=== PATIENT | female | born 1965 | race Caucasian/White ===

== ENCOUNTER → 2017-09-27 12:47 | Outpatient (CLI) | payer MEDICAID, SELFPAY ==
--- NOTE | 2017-09-27 14:02 | NEURO ---
NCS and/or EMG Patient Report Ordering Doctor: Bret You Chi DATE OF SERVICE: 09/27/17 Gisel Bhatti is a 52-year-old female presents for electrodiagnostic testing of the left upper limb. She has chief complaint of numbness and tingling in the arm as well as neck pain. Electrodiagnostic findings: Left median motor nerve demonstrates normal distal latency, amplitude with borderline reduced conduction velocity. Left ulnar motor response is within normal limits. Prolonged left median sensory distal latency is noted. Normal left median and ulnar f wave. Needle EMG testing shows no evidence of denervation in any muscles tested in the left upper limb and left cervical paraspinals. Electrodiagnostic impression: This is an abnormal study in the left upper limb. 1. Electrodiagnostic findings demonstrate left-sided median mononeuropathy. This is consistent with a mild left carpal tunnel syndrome. 2. No EMG evidence is noted for cervical radiculopathy. If there are any further questions, please do not hesitate to contact me.
== END ==
PROVIDERS: Family Provider Family Medicine Geriatric Medicine; PCP Family Medicine Geriatric Medicine; Visit Provider Family Medicine Geriatric Medicine
DX: R20.0 Anesthesia of skin (principal); R20.2 Paresthesia of skin
CPT/HCPCS: 95886; 95909

== ENCOUNTER → 2017-10-24 08:26 | Outpatient (CLI) | payer MEDICAID, SELFPAY ==
--- NOTE | 2017-10-24 08:27 | RAD_ITS ---
STUDY: X-RAY - LEFT WRIST REASON FOR EXAM: Increased left wrist pain for one year. TECHNIQUE: 3 view(s) of the wrist were obtained. COMPARISON: None. FINDINGS: Normal visualized distal radius and ulna. Normal radiocarpal articulation. Normal distal radioulnar articulation. Normal carpal bones. Normal carpal articulations. Normal carpometacarpal articulation of the thumb. Normal second through fifth carpometacarpal articulations. Normal visualized metacarpal bones. The soft tissue structures are unremarkable. RAD/Wrist min 3 Views IMPRESSION: Unremarkable x-ray examination of the left wrist. Electronically Signed: Javier Carrillo MD at 11:58 EST Tel , Service support ,
== END ==
PROVIDERS: Family Provider Family Medicine Geriatric Medicine; PCP Family Medicine Geriatric Medicine; Visit Provider Orthopaedic Surgery
DX: M25.532 Pain in left wrist (principal)
CPT/HCPCS: 73110

== ENCOUNTER → 2017-11-06 07:47 | Outpatient (CLI) | payer MEDICAID, SELFPAY ==
--- NOTE | 2017-11-06 10:17 | PFT ---
INTRODUCTION: The patient is a 52-year-old female currently under the care of Dr. Jones that presents for pulmonary function testing secondary to a diagnosis of COPD. Respiratory therapy reports good patient effort reports no other concerns. Bronchodilators were used during testing. INTERPRETATION: Forced expiration spirometry demonstrates the presence of a mild large airways obstructive ventilatory defect. There was a significant response to aerosolized bronchodilators, based upon changes noted in FEV1. Spirogram is of good quality and do not plateau indicating slanting of the lungs. The respiratory flow volume loop reveals decreased expiratory flow rates, primarily at high lung volumes, consistent with small airways obstruction. Body plethysmography was performed and reveals an elevated RV to 124% of predicted, indicative of underlying air trapping. Diffusing capacity by single breath CO was moderately reduced at 56% of predicted. IMPRESSION: These pulmonary function studies demonstrate the presence of a reversible mild large airways obstructive ventilatory defect with associated air trapping and reduction in diffusing capacity.
== END ==
PROVIDERS: Family Provider Family Medicine Geriatric Medicine; PCP Family Medicine Geriatric Medicine; Visit Provider Internal Medicine Critical Care Medicine
DX: J44.9 Chronic obstructive pulmonary disease, unspecified (principal)
CPT/HCPCS: 94060; 94726; 94729

== ENCOUNTER → 2017-11-15 11:21 | Outpatient (CLI) | payer MEDICAID, SELFPAY ==
[2017-11-15 13:08] LABS: Absolute Lymphocyte Count 1.84 X10^3/ul (0.83-4.51); Absolute Neutrophil Count 3.7 X10^3/uL (2.0-7.7); Basophil# 0.02 X10^3/uL; Basophil% 0.3 % (0-1); Eosinophil# 0.15 X10^3/uL; Eosinophils% 2.4 % (0-5); Hematocrit 34.4 % (37-47); Hemoglobin 11.4 g/dl (12.0-15.0); Lymphocyte # 1.84 X10^3/ul (4.0); Lymphocyte % 29.7 % (19-41); Mean Corp Hgb Conc 33.1 g/gl (32-36); Mean Corpuscular Hgb 32.8 pg (27.0-32.0); Mean Corpuscular Volume 98.9 fL (81-99); Mean Platelet Vol. 8.5 fl (6.2-12.0); Monocyte# 0.47 X10^3/uL; Monocyte% 7.6 % (0-10); Neutrophil # 3.71 X10^3/uL (2.7-7.7); Neutrophil % 59.8 % (47-70); Platelet Count 355 K/mm3 (150-450); RBC Distribution Width CV 13.6 % (11.6-14.6); RBC Distribution Width SD 48.9 fl (35.1-43.9); Red Blood Count 3.48 M/mm3 (4.2-5.4); White Blood Count 6.2 K/mm3 (4.4-11.0)
[2017-11-15 13:11] LABS: POSITIVE COUNT NO; POSITIVE DIFFERENTIAL NO; POSITIVE MORPHOLOGY NO
[2017-11-15 13:31] LABS: ALB/GLOB Ratio 1.2 RATIO (0.9-2.4); AST(SGOT) 16 U/L (15-37); Alanine Aminotransfer ALT/SGPT 28 U/L (13-56); Albumin, Serum 3.8 g/dL (3.2-5.0); Alkaline Phosphatase 67 U/L (45-117); Anion Gap 6 (5-15); BUN 10 mg/dL (7-18); BUN/Creat Ratio 12.2 RATIO (10-20); Calcium,Total 9.1 mg/dL (8.5-10.1); Chloride 105 mmol/L (98-107); Creatinine, Serum 0.82 mg/dL (0.55-1.02); EST Glomerular Filtration Rate 78 mL/min (>60); Est Glom Filt Rate - Afr Amer 94 mL/min (>60); Globulin 3.3 g/dL (2.2-4.2); Glucose 95 mg/dL (74-106); Potassium 4.9 mmol/L (3.5-5.1); Protein, Total 7.1 g/dL (6.4-8.2); Sodium Level 136 mmol/L (136-145); Thyroid Stim Hormone (TSH) 1.97 uIU/mL (0.358-3.74)
== END ==
PROVIDERS: Family Provider Family Medicine Geriatric Medicine; PCP Family Medicine Geriatric Medicine; Visit Provider Family Medicine Geriatric Medicine
DX: E11.9 Type 2 diabetes mellitus without complications (principal); I10 Essential (primary) hypertension
CPT/HCPCS: 36415; 80053; 84443; 85025

== ENCOUNTER → 2017-12-06 08:30 | Outpatient (CLI) | payer MEDICAID, SELFPAY ==
--- NOTE | 2017-12-06 08:31 | BI_ITS ---
MAMMOGRAPHY - BILATERAL SCREENING REASON FOR EXAM: Female, 52 years old. Routine annual screening examination. PERTINENT HISTORY: Aunt with breast cancer. TECHNIQUE: Digital bilateral breast yajaira (3D mammographic acquisition) in the CC and MLO projections. 2-D mediolateral oblique (MLO) and craniocaudad (CC) views of both breasts were obtained. CAD: Full Field Digital Mammography with Computer Added Detection was performed. COMPARISON: No comparison mammograms available at this time. If any prior films become available, an addendum to this report can be generated. FINDINGS: Breast Composition: The breasts are heterogeneously dense, which may obscure small masses. A cluster microcalcification is seen in the axillary region of the left breast as seen on the MLO view. These are not well seen on the craniocaudad view. The patient will be recalled for additional views including magnification spot views and exaggerated craniocaudad view of the left breast. No other significant abnormalities are identified. BI/SCREENING MAMM (CAD), BILAT IMPRESSION: Cluster microcalcification in the left breast as described. The patient will be recalled for additional views including magnification spot views in the MLO position as well as an exaggerated left craniocaudad view. Recall Side: Left Breast ASSESSMENT CATEGORY: BIRADS Category 0: Incomplete. Need additional imaging evaluation. A letter regarding these results will be sent to the patient by the facility within 30 days. Approximately 10% of breast cancers are not detected by mammography. A normal mammogram should not delay biopsy of a clinically suspicious abnormality. [id number] Electronically Signed: Agus Ruelas MD at 8:35 EDT Tel [phone], Service support ,
== END ==
PROVIDERS: Family Provider Family Medicine Geriatric Medicine; PCP Family Medicine Geriatric Medicine; Visit Provider Family Medicine Geriatric Medicine
DX: Z12.31 Encounter for screening mammogram for malignant neoplasm of breast (principal)
CPT/HCPCS: 77063; 77067

== ENCOUNTER → 2017-12-13 07:42 | Outpatient (CLI) | payer MEDICAID, SELFPAY ==
--- NOTE | 2017-12-13 07:43 | BI_ITS ---
MAMMOGRAPHY - UNILATERAL DIAGNOSTIC: LEFT BREAST REASON FOR EXAM: Female, 52 years old. Abnormal screening mammogram. PERTINENT HISTORY: Aunt with breast cancer. TECHNIQUE: Compression spot views with magnification of the left breast were obtained. CAD: Full Field Digital Mammography with Computer Added Detection was performed. COMPARISON: Comparison is made with prior study dated December 06, 2017 and prior ocular examination dated November 23, 2016. FINDINGS: Breast Composition: The breasts are heterogeneously dense, which may obscure small masses. The cluster microcalcification in the deep upper central portion of the left breast have increased in number as compared to prior study. A biopsy is recommended for further evaluation. No other significant abnormalities are identified. BI/DIAG MAMM W/CAD, UNILAT IMPRESSION: Increased number of calcifications in the breast as described. A biopsy recommended. ASSESSMENT CATEGORY: BIRADS Category 4: Suspicious - Biopsy Should Be Considered. A letter regarding these results will be sent to the patient by the facility within 30 days. Approximately 10% of breast cancers are not detected by mammography. A normal mammogram should not delay biopsy of a clinically suspicious abnormality. Electronically Signed: Agus Ruelas MD at 9:12 EDT Tel [phone], Service support ,
== END ==
PROVIDERS: Family Provider Family Medicine Geriatric Medicine; PCP Family Medicine Geriatric Medicine; Visit Provider Family Medicine Geriatric Medicine
DX: R92.8 Other abnormal and inconclusive findings on diagnostic imaging of breast (principal)
CPT/HCPCS: 77065

== ENCOUNTER → 2017-12-22 11:59 | Outpatient (CLI) | payer MEDICAID, SELFPAY ==
--- NOTE | 2017-12-22 | BRBX_PTH ---
PATIENT: FLORINDA LOPEZ LOC: [facility] U#:[id number] AGE/SX: 60/F ROOM: RE12/22/[address]: Dr. Ashish Kumar MD : 1965 BED: DIS: SPEC #: [id number] RECD: 12/22/17 15:14 STATUS: EILEEN JIMBO #: [id number] SHARON: 12/22/17 00:[address]: Ashish Kumar DEPT: SURGICAL PATHOLOGY RECD BY: Mukund Sewell ENTERED: 12/22/17 15:14 SP TYPE: BREAST BX OTHR DR: Dr. Bret You MD Tissues: Left breast, NOS Procedures: Surgery Specimen Level IV HEADER OPERATION: Left stereotactic breast biopsy PRE-OP DIAGNOSIS: Left breast microcalcifications TISSUE SUBMITTED: Left deep upper central breast microcalcification ISCHEMIC TIME: 2 minutes FIXATION TIME: 53 hours MICROSCOPIC DIAGNOSIS Left deep upper central breast microcalcifications, stereotactic core biopsy: Hyalinized fibroadenoma with focal calcifications. Lobular involution. Negative for atypia or malignancy. KRISTY:tin 12/25/17 COMMENT Focal microcalcifications are also noted in the benign breast tissue. Correlation with clinical, radiologic findings and appropriate follow up are necessary. MICROSCOPIC DESCRIPTION Slides are reviewed. GROSS DESCRIPTION Received is one container labeled with the patient's name and not further designated. The specimen consists of multiple irregular fragments of yellow-pink soft tissue that in aggregate measure 6.5 x 3 x 0.2 cm. The specimen is totally submitted in three cassettes. / AM:tin 12/22/17 TC:1 CPT: 07476
--- NOTE | 2017-12-22 13:21 | OP.PCM_ITS ---
Problem List (1) Microcalcification of left breast on mammogram Status: Acute Report of Operation Date of Procedure: 12/22/17 Pre-Operative Diagnosis: r92.0 mammographic microcalcifications of left breast Post-Operative Diagnosis: Same Surgery/Procedure Performed:: 16988 stereotactic breast biopsy of left breast for microcalcifications Type of Anesthesia:: Local Description of Procedure: Patient was brought into the mammography unit placed in the prone position on the fissure table. Left breast was brought down through the opening. A cc view was obtained. ?15? views were obtained. I targeted on the microcalcifications. I prepped the breast with Betadine. I injected 1% lidocaine plain. A skin haley was made. I placed the needle in the prefire position. 2 more stereo views were obtained showing the area to be adequately targeted. I fired the needle and took 360? circumferential biopsies. I x- rayed my specimen. Microcalcifications were identified. Backed the needle off 9 mm. I placed a small Gelfoam titanium clip. 2 more stereo views were obtained. Clip was in good placement. Patient was taken out sterile dressings were applied standard mammograms were obtained. She tolerated the procedure well. On my way - Admit VTE Documentation VTE Present on Admission: No VTE Mechan Device Prophylaxis: None VTE Pharm Prophylaxis ordered?: No Reason prophylaxis not ordered:: Treatment Not Indicated
== END ==
PROVIDERS: Family Provider Family Medicine Geriatric Medicine; PCP Family Medicine Geriatric Medicine; Visit Provider Surgery
DX: D24.2 Benign neoplasm of left breast (principal); N60.82 Other benign mammary dysplasias of left breast; E03.9 Hypothyroidism, unspecified; F32.9 Major depressive disorder, single episode, unspecified; E11.9 Type 2 diabetes mellitus without complications; E78.5 Hyperlipidemia, unspecified; J44.9 Chronic obstructive pulmonary disease, unspecified; Z79.51 Long term (current) use of inhaled steroids; Z79.84 Long term (current) use of oral hypoglycemic drugs; Z79.899 Other long term (current) drug therapy; Z87.891 Personal history of nicotine dependence
CPT/HCPCS: 19081; 88305; J7050; A4648

== ENCOUNTER 2018-01-24 11:37 | Day surgery (SDC) | payer MEDICAID, SELFPAY ==
[2018-01-24] VITALS (7 sets, daily range): BP systolic 82–97; BP diastolic 51–64; PULSE 87–94; RESP 16–20; TEMP 36.1–36.7; O2SAT 96–98; BMI 24.3
[2018-01-24 12:20] LABS: Bedside Glucose 98 mg/dL (70-110)
--- NOTE | 2018-01-24 12:22 | DCINST_ITS ---
Discharge Diet: No Restrictions - leave dressing intact, call with concerns, follow up in 2 weeks Discharge Activity: May Not Drive May shower in (days): 1 Ice area for (Minutes): 20 - Every hour while awake. Weight Bearing Status: Weight bearing as tolerated Keep extremity elevated above heart level: Operative Extremity Call your doctor if your incision/area has: Continuous Slow Oozing, Sudden Increased Bleeding, Increased Pain/ Swelling, Increased Redness, Foul Smelling Discharge Call your doctor if you observe: Fever of 101 or Higher, Coldness, Increased Pain, Numbness or Tingling, Change in Color, Calf discomfort Allergies/Adverse Reactions: Allergies prochlorperazine edisylate [From Compazine] Allergy (Verified 01/23/18 10:15) Rash prochlorperazine maleate [From Compazine] Allergy (Verified 01/23/18 10:15) Rash Medications to take at Discharge Atorvastatin Calcium [Lipitor] 40 mg PO QHS 08/11/14 [place]-3 Fatty Acids [Fish Oil] 1,000 mg PO DAILY 08/11/14 Sertraline HCl [Zoloft] 100 mg PO DAILY 08/11/14 traZODone [Desyrel] 100 mg PO QHS 08/11/14 levothyroxine 25 mcg capsule 25 mcg PO DAILY 10/24/17 lisinopril 5 mg tablet 5 mg PO QDAY 10/24/17 naproxen 500 mg tablet 500 mg PO Q12H PRN 10/24/17 albuterol sulfate concentrate 2.5 mg/0.5 mL solution for nebulization 2.5 mg INHALATION Q4H PRN 12/14/17 albuterol sulfate HFA 90 mcg/actuation aerosol inhaler 2 puff INHALATION Q6H PRN #18 g 12/20/17 cyclobenzaprine 10 mg tablet 10 mg PO TID 12/21/17 metformin 500 mg tablet 1,000 mg PO BID 12/21/17 Hydrocodone Bitart/Apap 5-325 [Branch 5MG-325MG] 1 - 2 tablet PO Q6H PRN PRN 3 Days #20 tablet 01/24/18 The following prescriptions were given: Hydrocodone Bitart/Apap 5-325 [Branch 5MG-325MG] 1 - 2 tablet PO Q6H PRN PRN 3 Days #20 tablet PRN Reason: Pain Primary Care Physician: Bret You Chi, MD [Primary Care Provider] - Please Follow Up With: Julee Greene, DO - [phone]
--- NOTE | 2018-01-24 12:22 | PCM.OPRPT ---
Report of Operation Date of Procedure: 01/24/18 Pre-Operative Diagnosis: left carpal tunnel syndrome Post-Operative Diagnosis: same Surgery/Procedure Performed:: left carpal tunnel release Type of Anesthesia:: Merritt Hurtado Anesthesiologist: Kuldip Herrera Estimated Blood Loss (mL): none Fluids Replaced: 500ml lr Description of Procedure: Preoperative note Patient is a { 52 y female } patient with nerve conduction study confirming carpal tunnel syndrome. Patient failed conservative treatment for her carpal tunnel elected proceed with left carpal tunnel release. Risks benefits and alternatives surgery discussed with patient. Risks including but not limited to blood loss, blood clot, infection, neurovascular injury, failure procedure, loss of life and loss of limb. Patient is aware like proceed with left carpal tunnel release. Operative note Patient seen and examined preoperative holding area. Left hand was marked. History and physical and consent reviewed. Patient was brought to the operating room placed supine on the operating table. Sign in, anesthesia, antibiotics were administered. Left upper extremity was prepped and draped after Merritt block was initiated. All bony prominences well-padded SCDs placed on bilateral lower extremities. We marked out our incisions for our carpal tunnel release at the intersection of Christen's line in the fourth ray flexed. We extended about a centimeter and a half. Timeout was performed. We then checked ensure that the [place] block was working with pickups which it was. We then used a 15 blade to make a skin incision. We then dissected down tenotomy syllable of the transverse carpal ligament. We then used a new 15 blade cut through the transverse carpal ligament down to the level of the median nerve. We then further released the median nerve the combination of the 15 blade and tenotomies. The nerve was grayish in color and adherent to the transverse carpal ligament volarly. We released the transverse carpal ligament distally to the fat pad and then proximally under standard technique. We then palpated to ensure that we released all of the transverse carpal ligament which we did. We irrigated the incision with copious amounts of sterile saline. All bleeders were coagulated. The incision was closed with interrupted 4-0 nylon stitches. Tourniquet was deflated for total working time of 10 minutes. Patient tolerated procedure well there were no complications. Patient transferred to recovery room in stable condition. Postoperative note Hospital pharmacy has prescription Leave dressing clean dry and intact Follow-up in 2 weeks Call with concerns This note was generated with [employer] software. It may contain incorrect words, spelling, and punctuation that were not noted in checking the note before signing.
[2018-01-24] MEDS: Mupirocin Ointment 22gm Tube 1 APPLIC (12:34)
[2018-01-24] MEDS: Cefazolin 2 GM in 0.9% Normal Saline 100 ML IV (12:44)
[2018-01-24] MEDS: HYDROcodone Bitartrate/Apap 5/325 Tablet PO (14:03)
== END 2018-01-24 14:20 | disposition home or self-care (01) ==
LOC: SDC 11:37 → AC 11:39
PROVIDERS: Family Provider Family Medicine Geriatric Medicine; PCP Family Medicine Geriatric Medicine; Visit Provider Orthopaedic Surgery
PROC: (CPT 64721; principal; 2018-01-24 12:55)
DX: G56.02 Carpal tunnel syndrome, left upper limb (principal); I10 Essential (primary) hypertension; J44.9 Chronic obstructive pulmonary disease, unspecified; E11.9 Type 2 diabetes mellitus without complications; F32.9 Major depressive disorder, single episode, unspecified; E03.9 Hypothyroidism, unspecified; Z87.891 Personal history of nicotine dependence
CPT/HCPCS: 01810; 64721; 82962; J7120; J2405

== ENCOUNTER → 2018-02-14 10:04 | Outpatient (CLI) | payer MEDICAID, SELFPAY ==
[2018-02-14 12:51] LABS: Absolute Lymphocyte Count 1.97 X10^3/ul (0.83-4.51); Absolute Neutrophil Count 2.8 X10^3/uL (2.0-7.7); Basophil# 0.04 X10^3/uL; Basophil% 0.7 % (0-1); Eosinophil# 0.24 X10^3/uL; Eosinophils% 4.3 % (0-5); Hematocrit 32.5 % (37-47); Lymphocyte # 1.97 X10^3/ul (4.0); Lymphocyte % 35.2 % (19-41); Mean Corp Hgb Conc 33.8 g/gl (32-36); Mean Corpuscular Hgb 33.8 pg (27.0-32.0); Mean Platelet Vol. 8.5 fl (6.2-12.0); Monocyte# 0.49 X10^3/uL; Monocyte% 8.8 % (0-10); Neutrophil # 2.83 X10^3/uL (2.7-7.7); Neutrophil % 50.6 % (47-70); POSITIVE COUNT NO; POSITIVE DIFFERENTIAL NO; POSITIVE MORPHOLOGY NO; Platelet Count 334 K/mm3 (150-450); RBC Distribution Width CV 12.9 % (11.6-14.6); RBC Distribution Width SD 45.8 fl (35.1-43.9); Red Blood Count 3.25 M/mm3 (4.2-5.4); White Blood Count 5.6 K/mm3 (4.4-11.0)
[2018-02-14 13:11] LABS: ALB/GLOB Ratio 1.2 RATIO (0.9-2.4); AST(SGOT) 14 U/L (15-37); Alanine Aminotransfer ALT/SGPT 26 U/L (13-56); Albumin, Serum 3.8 g/dL (3.2-5.0); Alkaline Phosphatase 71 U/L (45-117); Anion Gap 9 (5-15); BUN 13 mg/dL (7-18); Calcium,Total 8.9 mg/dL (8.5-10.1); Chloride 102 mmol/L (98-107); Creatinine, Serum 0.86 mg/dL (0.55-1.02); EST Glomerular Filtration Rate 73 mL/min (>60); Est Glom Filt Rate - Afr Amer 88 mL/min (>60); Globulin 3.2 g/dL (2.2-4.2); Glucose 93 mg/dL (74-106); Potassium 4.5 mmol/L (3.5-5.1); Sodium Level 135 mmol/L (136-145); Thyroid Stim Hormone (TSH) 2.25 uIU/mL (0.358-3.74)
== END ==
PROVIDERS: Family Provider Family Medicine Geriatric Medicine; PCP Family Medicine Geriatric Medicine; Visit Provider Family Medicine Geriatric Medicine
DX: I10 Essential (primary) hypertension (principal); E11.9 Type 2 diabetes mellitus without complications
CPT/HCPCS: 36415; 80053; 84443; 85025

== ENCOUNTER 2018-03-11 11:35 | Emergency (ER) | payer MEDICAID, SELFPAY ==
[2018-03-11 11:37] VITALS: BP 130/67; PULSE 100; RESP 14; TEMP 37.2; O2SAT 98; BMI 24.2
--- NOTE | 2018-03-11 11:58 | ED.DCSUM_ITS ---
- ER Visit Summary Date of Service: 03/11/18 Chief Complaint: Left wrist pain and numbness left little finger History of Present Illness: The patient is a 52 F right hand dominant woman who presents with left wrist pain that she localizes to the volar surface and numbness of her left little finger. This has been present since January. She had carpal tunnel surgery performed several weeks ago. She reports postop infection because she was placing mulch. She was treated with antibiotics. She states she contacted the surgeon. She is not able to be seen until next month. She has taken 2 ibuprofen every 6 hours with some improvement. Movement does cause the pain to be worse. She has no other complaints. Physical Examination: Vital signs are noted. There is a contusion volar surface left wrist. There is pain to palpation over the flexor palmaris tendon. Movement causes discomfort and there is a gritty sensation appreciated. Incision is well-healed without erythema, warmth, fluctuance, lymphangitis and there is no epitrochlear extra lymphadenopathy. Median, radial and ulnar function intact. Positive Tinel's sign with palpation near the medial epicondyle to suggest ulnar nerve entrapment. Sensation of her fingers is normal. Capillary refill is normal. Test Results: None Emergency Department Course and Treatment: Will treat with cock-up splint and anti-inflammatory medication. Treatment Plan: Anti-inflammatory medication and outpatient follow-up with orthopedic surgeon Disposition: Discharged to home Impression: 1. Flexor tendon tenosynovitis initial encounter 2. Paresthesia ulnar nerve distribution This note was generated with [employer] dictation software. It may contain incorrect words, spelling, and punctuation that were not noted in review of the chart prior to signing ED Disposition - Plan for ED Patient: Disposition: Home or Assisted Living Chief Complaint: Upper Extremity Injury Instructions: ED Sprain Wrist Referrals: Bret You Chi, MD [Primary Care Provider] - As Needed Julee Greene DO [STAFF PHYSICIAN] - 1 Week
[2018-03-11] MEDS: HYDROcodone Bitartrate/Apap 5/325 Tablet PO (12:15)
[2018-03-11] MEDS: Naproxen 250 MG Tablet 500 MG PO (12:15)
[2018-03-11 12:17] VITALS: PULSE 72; RESP 16; O2SAT 100
== END 2018-03-11 12:19 | disposition home or self-care (01) ==
LOC: ED 12:04
PROVIDERS: Emergency Provider Emergency Medicine; Family Provider Family Medicine Geriatric Medicine; PCP Family Medicine Geriatric Medicine
DX: M65.842 Other synovitis and tenosynovitis, left hand (principal); R20.2 Paresthesia of skin; Z98.890 Other specified postprocedural states; Z87.891 Personal history of nicotine dependence
CPT/HCPCS: 99284

== ENCOUNTER → 2018-04-11 09:04 | Outpatient (CLI) | payer MEDICAID, SELFPAY ==
--- NOTE | 2018-04-11 14:02 | NEURO ---
NCS and/or EMG Patient Report Ordering Doctor: Bret You Chi DATE OF SERVICE: 04/11/18 Gisel Bhatti is a 52 year old female who presents for electrodiagnostic testing of the left upper limb. She had carpal tunnel surgery in December and reports improvement. However, she has started to notice numbness in the fifth digit of the left hand. Electrodiagnostic Findings: Normal left median motor distal latency and amplitude with delay in conduction velocity. Prolonged left median sensory latency. Normal ulnar motor and sensory responses. Needle EMG testing shows no evidence of denervation Electrodiagnostic Impression: this is an abnormal study 1) Findings demonstrate left median mononeuropathy. However, carpal tunnel symptoms are improved following surgery in December 2) No electrodiagnostic evidence for ulnar motor or sensory neuropathy 3) No EMG evidence for cervical radiculopathy If there are any further questions, please do not hesitate to contact me
== END ==
PROVIDERS: Family Provider Family Medicine Geriatric Medicine; PCP Family Medicine Geriatric Medicine; Visit Provider Family Medicine Geriatric Medicine
DX: R20.0 Anesthesia of skin (principal)
CPT/HCPCS: 95886; 95910

== ENCOUNTER 2018-05-09 18:40 | Emergency (ER) | payer MEDICAID, SELFPAY ==
[2018-05-09 18:41] VITALS: BP 118/66; PULSE 106; RESP 18; TEMP 37; O2SAT 98; BMI 20.2
--- NOTE | 2018-05-09 19:07 | ED.DCSUM_ITS ---
- ER Visit Summary Date of Service: 05/09/18 Chief Complaint: Cough History of Present Illness: The patient is a 52 F with a cough for 1 week. This has been productive of green sputum. She has taken Tylenol with no improvement. No fevers. She does get occasional shortness of breath. She has chest pain but only with coughing. No history of heart disease, DVT, or PE. She does have similar symptoms in the past with a pneumonia. She denies any history of COPD. She is a smoker however. Physical Examination: Afebrile and vital signs unremarkable except for heart rate of 106. The patient appears uncomfortable and in no acute distress. Breathing comfortably. Sitting comfortably. Heart regular rate and rhythm. Lungs clear throughout all peters. Extremities nontender with no edema. Skin appears normal in color without pallor or diaphoresis. Test Results: Chest x-ray pending. Emergency Department Course and Treatment: I suspect the patient has some underlying COPD given her smoking history. She was treated with an albuterol inhaler while awaiting results. Will reassess. Nothing to suggest coronary disease, ACS, PE, aortic disease. CXR shows degenerative changes. Patient is stable. Appropriate for outpatient follow-up. This is likely acute bronchitis. She was treated with doxycycline. Albuterol as needed. Follow-up with primary care. Prior to discharge, the patient is complaining of substernal chest pain, describes it as pressure. Will check EKG and labs. Symptoms are concerning. Patient has history of smoking. Will discuss with hospitalist for admission. Patient was discussed with the hospitalist. He believes she is low risk. He recommends outpatient follow-up. Patient also wishes for outpatient follow-up. Will be discharged with a course of doxycycline. Follow-up with primary care. Return at any time for new or worsening issues. Treatment Plan: As above Disposition: Discharged Impression: 1. Acute bronchitis 2. Chest pain This note was generated with [employer] dictation software. It may contain incorrect words, spelling, and punctuation that were not noted in review of the chart prior to signing ED Disposition - Plan for ED Patient: Chief Complaint: Cough Referrals: Bret You Chi, MD [Primary Care Provider] -
--- NOTE | 2018-05-09 19:15 | RAD_ITS ---
STUDY: X-RAY CHEST REASON FOR EXAM: Female, 52 years old. Cough TECHNIQUE: PA and lateral views of the chest. COMPARISON: August 02, 2017 FINDINGS: The lungs are clear and expanded. There is no demonstrated pleural abnormality. Normal size heart. Normal mediastinum and lauryn. Normal visualized pulmonary arteries. Normal visualized aortic arch and descending thoracic aorta. There are diffuse degenerative changes of the visualized thoracic spine. Normal visualized ribs, clavicles, and shoulders. There is no demonstrated abnormality of the visualized soft tissue structures of the upper abdomen. RAD/Chest PA and Lateral IMPRESSION: Degenerative changes, as described above. No demonstrated acute cardiopulmonary process. Electronically Signed: Mumtaz Carbone MD at 20:05 EDT , Service support ,
--- NOTE | 2018-05-09 20:20 | EKG12_ITS ---
Test Reason : CP Blood Pressure : / mmHG Vent. Rate : 090 BPM Atrial Rate : 090 BPM P-R Int : 184 ms QRS Dur : 084 ms QT Int : 372 ms P-R-T Axes : 072 054 040 degrees QTc Int : 455 ms Normal sinus rhythm Normal ECG Confirmed by AMINATA PEDROZA, JOSE ([id number]), production editor ZAHIRA BARRIENTOS ([id number]) on 05/14/2018 2:57:47 PM Referred By: DC Confirmed By:JOSE COATES MD
--- NOTE | 2018-05-09 20:30 | ED.RN ---
PT C/O STERNAL TIGHTNESS. DR MERIDA NOTIFIED. PT PLACED ON RN TRANSPORT AND EKG OBTAINED
[2018-05-09] MEDS: Aspirin 81 MG TAB.CHEW 324 MG PO (20:33)
[2018-05-09] MEDS: Doxycycline 100 MG CAPSULE PO (20:33)
[2018-05-09 20:34] VITALS: O2SAT 96
[2018-05-09 20:37] VITALS: BP 85/60; PULSE 94; RESP 12; O2SAT 97
[2018-05-09 20:49] LABS: Absolute Lymphocyte Count 1.75 X10^3/ul (0.83-4.51); Basophil# 0.01 X10^3/uL; Basophil% 0.2 % (0-1); Eosinophil# 0.12 X10^3/uL; Eosinophils% 2.3 % (0-5); Hematocrit 31.2 % (37-47); Hemoglobin 10.6 g/dl (12.0-15.0); Lymphocyte # 1.75 X10^3/ul (4.0); Lymphocyte % 33.4 % (19-41); Mean Corpuscular Hgb 32.3 pg (27.0-32.0); Mean Corpuscular Volume 95.1 fL (81-99); Mean Platelet Vol. 8.3 fl (6.2-12.0); Monocyte# 0.37 X10^3/uL; Monocyte% 7.1 % (0-10); Neutrophil # 2.98 X10^3/uL (2.7-7.7); Neutrophil % 56.8 % (47-70); Platelet Count 272 K/mm3 (150-450); RBC Distribution Width CV 13.1 % (11.6-14.6); RBC Distribution Width SD 45.4 fl (35.1-43.9); Red Blood Count 3.28 M/mm3 (4.2-5.4); White Blood Count 5.2 K/mm3 (4.4-11.0)
[2018-05-09 20:51] LABS: POSITIVE COUNT NO; POSITIVE DIFFERENTIAL NO; POSITIVE MORPHOLOGY NO
[2018-05-09 21:04] LABS: Anion Gap 10 (5-15); BUN 12 mg/dL (7-18); BUN/Creat Ratio 11.2 RATIO (10-20); Calcium,Total 9.1 mg/dL (8.5-10.1); Chloride 106 mmol/L (98-107); Creatinine, Serum 1.07 mg/dL (0.55-1.02); EST Glomerular Filtration Rate 57 mL/min (>60); Est Glom Filt Rate - Afr Amer 69 mL/min (>60); Estimated Creatinine Clearance 53.73 ml/min; Glucose 113 mg/dL (74-106); Potassium 3.5 mmol/L (3.5-5.1); Sodium Level 140 mmol/L (136-145)
--- NOTE | 2018-05-09 21:37 | HP.PCM_ITS ---
History of Present Illness The patient is a 52 year old F [] Past Medical History Past Medical History (Chronic Problems): Chronic Problems (Last Updated 12/28/17 @ 07:17 by Vijaya Argueta) Mild intermittent acute asthmatic bronchitis (Chronic) Hypothyroidism (Chronic) Diabetes type 2, controlled (Chronic) History of tobacco use (Chronic) Diabetes type 2, uncontrolled (Chronic) Dyslipidemia (Chronic) COPD (chronic obstructive pulmonary disease) with emphysema (Chronic) Medical History: Medical History (Last Updated 12/28/17 @ 07:17 by Vijaya Argueta) Hypothyroidism (Chronic) E03.9 Depression (Acute) F32.9 Insomnia (Acute) G47.00 Diabetes type 2, controlled (Chronic) E11.9 History of tobacco use (Chronic) Z87.891 Diabetes type 2, uncontrolled (Chronic) E11.65 Dyslipidemia (Chronic) E78.5 COPD (chronic obstructive pulmonary disease) with emphysema (Chronic) J43.9 Right lower lobe pneumonia (Acute) J18.9 Left arm numbness (Acute) R20.0 Unstable angina (Acute) I20.0 Abnormal stress test (Acute) R94.39 Calcification of left breast R92.1 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 Allergies prochlorperazine edisylate [From Compazine] Allergy (Verified 05/09/18 18:42) Rash prochlorperazine maleate [From Compazine] Allergy (Verified 05/09/18 18:42) Rash Home Medications: Ambulatory Orders Medication Instructions Recorded Atorvastatin Calcium [Lipitor] 40 mg PO QHS 08/11/14 Sertraline HCl [Zoloft] 100 mg PO DAILY 08/11/14 traZODone [Desyrel] 100 mg PO QHS PRN 08/11/14 lisinopril 5 mg tablet 5 mg PO DAILY 10/24/17 albuterol sulfate concentrate 2.5 2.5 mg INHALATION Q4H PRN 12/14/17 mg/0.5 mL solution for nebulization albuterol sulfate HFA 90 2 puff INHALATION Q6H PRN #18 g 12/20/17 mcg/actuation aerosol inhaler metformin 500 mg tablet 500 mg PO BID 12/21/17 Levothyroxine [Synthroid] 25 mcg PO DAILY 05/09/18 Paroxetine HCl [Paxil] 40 mg PO DAILY 05/09/18 Surgical History: Surgical History (Last Updated 12/28/17 @ 07:19 by Vijaya Argueta) Hx of cardiac catheterization (Acute) Z98.890 History of hysterectomy (Resolved) Z90.710 history stereotactic biopsy left breast Onset Date: ~12/22/17 H/O: hysterectomy Z98.890, Z90.710 2002 heart catheterization 2001 Surgical History: hysterectomy Psychiatric History: Anxiety, Depression 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 - Physical Exam Vital Signs Temp Pulse Resp BP Pulse Ox 98.6 F 94 12 85/60 L 97 05/09/18 18:41 05/09/18 20:37 05/09/18 20:37 05/09/18 20:37 05/09/18 20:37 Oxygen Flow Rate (L/min) 2 Oxygen Delivery Method Nasal Cannula Weight: 55.338 kg Body Mass Index (BMI) 20.2 Finger Stick Blood Glucose 93 Laboratory Tests Past 24 Hrs 05/09/18 05/09/18 20:28 20:28 WBC 5.2 RBC 3.28 L Hgb 10.6 L Hct 31.2 L MCV 95.1 MCH 32.3 H MCHC 34.0 RDW 13.1 RDW Differential 45.4 H Plt Count 272 MPV 8.3 Immature Gran % (Auto) 0.200 Neut % (Auto) 56.8 Lymph % (Auto) 33.4 [place] % (Auto) 7.1 Eos % (Auto) 2.3 Baso % (Auto) 0.2 Absolute Neuts (auto) 3.0 Absolute Lymphs (auto) 1.75 Total Counted Not Reportable Sodium 140 Potassium 3.5 Chloride 106 Carbon Dioxide 24.0 Anion Gap 10 BUN 12 Creatinine 1.07 H Estim Creat Clear Calc 53.73 Est GFR (MDRD) Af Amer 69 Est GFR (MDRD) Non-Af 57 L BUN/Creatinine Ratio 11.2 Glucose 113 H Calcium 9.1 Troponin I < 0.015 Assessment/Plan All Active Problems (Last Updated 12/28/17 @ 07:17 by Vijaya Argueta) Microcalcification of left breast on mammogram (Acute) Hx of cardiac catheterization (Acute) Depression (Acute) Insomnia (Acute) History of hysterectomy (Resolved) Right lower lobe pneumonia (Acute) Left arm numbness (Acute) Unstable angina (Acute) Abnormal stress test (Acute)
[2018-05-09 22:00] VITALS: BP 87/58; PULSE 75; RESP 16; O2SAT 98
--- NOTE | 2018-05-09 22:09 | ED.DEP ---
ED Disposition - Plan for ED Patient: Chief Complaint: Cough Instructions: Acute Bronchitis Prescriptions: Doxycycline Monohydrate 100 mg PO BID #14 cap Referrals: Bret You Chi, MD [Primary Care Provider] -
[2018-05-09 22:33] VITALS: BP 94/56; PULSE 96; RESP 16; O2SAT 99
== END 2018-05-09 22:34 | disposition home or self-care (01) ==
PROVIDERS: Emergency Provider Emergency Medicine; Family Provider Family Medicine Geriatric Medicine; PCP Family Medicine Geriatric Medicine
DX: J20.9 Acute bronchitis, unspecified (principal); R07.9 Chest pain, unspecified; F17.200 Nicotine dependence, unspecified, uncomplicated; Z79.51 Long term (current) use of inhaled steroids; Z79.899 Other long term (current) drug therapy
CPT/HCPCS: 71046; 80048; 84484; 85025; 93005; 94664; 99285; A4216

== ENCOUNTER → 2018-05-24 15:11 | Outpatient (CLI) | payer MEDICAID, SELFPAY ==
--- NOTE | 2018-05-24 15:13 | RAD_ITS ---
STUDY: X-RAY CHEST REASON FOR EXAM: Female, 52 years old. Short of breath and chest pain. TECHNIQUE: Frontal and lateral views of the chest. COMPARISON: 05/09/2018. FINDINGS: The lungs are clear and expanded. There is no demonstrated pleural abnormality. Normal size heart. Normal mediastinum and lauryn. Normal visualized pulmonary arteries. Normal visualized aortic arch and descending thoracic aorta. Normal visualized thoracic spine. Normal visualized ribs, clavicles, and shoulders. There is no demonstrated abnormality of the visualized soft tissue structures of the upper abdomen. RAD/Chest PA and Lateral IMPRESSION: Normal x-ray examination of the chest. Electronically Signed: Jasper Huang MD at 23:50 EDT , Service support ,
[2018-05-24 17:05] LABS: Absolute Lymphocyte Count 2.33 X10^3/ul (0.83-4.51); Absolute Neutrophil Count 6.2 X10^3/uL (2.0-7.7); Eosinophil# 0.14 X10^3/uL; Eosinophils% 1.5 % (0-5); Hematocrit 30.7 % (37-47); Hemoglobin 10.5 g/dl (12.0-15.0); Lymphocyte # 2.33 X10^3/ul (4.0); Lymphocyte % 24.9 % (19-41); Mean Corp Hgb Conc 34.2 g/gl (32-36); Mean Corpuscular Volume 96.5 fL (81-99); Mean Platelet Vol. 8.8 fl (6.2-12.0); Monocyte# 0.71 X10^3/uL; Monocyte% 7.6 % (0-10); Neutrophil # 6.18 X10^3/uL (2.7-7.7); Neutrophil % 65.9 % (47-70); Platelet Count 324 K/mm3 (150-450); RBC Distribution Width CV 13.8 % (11.6-14.6); RBC Distribution Width SD 48.6 fl (35.1-43.9); Red Blood Count 3.18 M/mm3 (4.2-5.4); White Blood Count 9.4 K/mm3 (4.4-11.0)
[2018-05-24 17:07] LABS: POSITIVE COUNT NO; POSITIVE DIFFERENTIAL NO; POSITIVE MORPHOLOGY NO
[2018-05-24 17:11] LABS: Anion Gap 6 (5-15); BUN 14 mg/dL (7-18); Calcium,Total 8.5 mg/dL (8.5-10.1); Chloride 105 mmol/L (98-107); Creatinine, Serum 0.93 mg/dL (0.55-1.02); EST Glomerular Filtration Rate 67 mL/min (>60); Est Glom Filt Rate - Afr Amer 81 mL/min (>60); Glucose 267 mg/dL (74-106); Potassium 4.5 mmol/L (3.5-5.1); Sodium Level 139 mmol/L (136-145)
[2018-05-24 17:25] LABS: BNP,B-Type NATRIURETIC PEPTIDE 69.5 pg/mL (0-100)
[2018-05-24 17:32] LABS: D-Dimer Quantitative (DVT/PE) 0.59 FEU/ug/m (0.27-0.49)
== END ==
PROVIDERS: Family Provider Family Medicine Geriatric Medicine; PCP Family Medicine Geriatric Medicine; Referring Provider Family Medicine Geriatric Medicine; Visit Provider Family Medicine Geriatric Medicine
DX: R06.89 Other abnormalities of breathing (principal); R60.9 Edema, unspecified
CPT/HCPCS: 36415; 71046; 80048; 83880; 85025; 85379; 87086; 87088

== ENCOUNTER → 2018-05-31 09:08 | Outpatient (CLI) | payer MEDICAID, SELFPAY ==
[2018-05-31 12:26] LABS: Absolute Lymphocyte Count 2.74 X10^3/ul (0.83-4.51); Basophil# 0.03 X10^3/uL; Basophil% 0.3 % (0-1); Eosinophil# 0.25 X10^3/uL; Eosinophils% 2.4 % (0-5); Hematocrit 36.4 % (37-47); Hemoglobin 12.2 g/dl (12.0-15.0); Lymphocyte # 2.74 X10^3/ul (4.0); Lymphocyte % 26.4 % (19-41); Mean Corp Hgb Conc 33.5 g/gl (32-36); Mean Corpuscular Hgb 32.8 pg (27.0-32.0); Mean Corpuscular Volume 97.8 fL (81-99); Mean Platelet Vol. 9.1 fl (6.2-12.0); Monocyte# 1.31 X10^3/uL; Monocyte% 12.6 % (0-10); Neutrophil # 6.01 X10^3/uL (2.7-7.7); Neutrophil % 58.1 % (47-70); Platelet Count 427 K/mm3 (150-450); RBC Distribution Width CV 13.6 % (11.6-14.6); RBC Distribution Width SD 46.9 fl (35.1-43.9); Red Blood Count 3.72 M/mm3 (4.2-5.4); White Blood Count 10.4 K/mm3 (4.4-11.0)
[2018-05-31 12:29] LABS: POSITIVE COUNT NO; POSITIVE DIFFERENTIAL NO; POSITIVE MORPHOLOGY NO
[2018-05-31 12:42] LABS: ALB/GLOB Ratio 1.1 RATIO (0.9-2.4); AST(SGOT) 12 U/L (15-37); Alanine Aminotransfer ALT/SGPT 33 U/L (13-56); Albumin, Serum 3.9 g/dL (3.2-5.0); Alkaline Phosphatase 63 U/L (45-117); Anion Gap 9 (5-15); BUN 22 mg/dL (7-18); BUN/Creat Ratio 15.7 RATIO (10-20); Calcium,Total 9.1 mg/dL (8.5-10.1); Chloride 103 mmol/L (98-107); EST Glomerular Filtration Rate 42 mL/min (>60); Est Glom Filt Rate - Afr Amer 51 mL/min (>60); Globulin 3.5 g/dL (2.2-4.2); Glucose 174 mg/dL (74-106); Potassium 4.7 mmol/L (3.5-5.1); Protein, Total 7.4 g/dL (6.4-8.2); Sodium Level 133 mmol/L (136-145); Thyroid Stim Hormone (TSH) 3.18 uIU/mL (0.358-3.74)
[2018-06-01 13:46] LABS: Hep C Antibodies <0.1 s/co ratio (0.0-0.9)
== END ==
PROVIDERS: Family Provider Family Medicine Geriatric Medicine; PCP Family Medicine Geriatric Medicine; Visit Provider Family Medicine Geriatric Medicine
DX: E11.9 Type 2 diabetes mellitus without complications (principal); I10 Essential (primary) hypertension; Z13.89 Encounter for screening for other disorder
CPT/HCPCS: 36415; 80053; 84443; 85025; 86803

== ENCOUNTER 2018-06-07 09:44 | Emergency (ER) | payer MEDICAID, SELFPAY ==
[2018-06-07 09:45] VITALS: BP 130/85; PULSE 131; RESP 18; TEMP 36.3; O2SAT 97; BMI 22.6
--- NOTE | 2018-06-07 10:08 | EKG12_ITS ---
Test Reason : CP Blood Pressure : / mmHG Vent. Rate : 113 BPM Atrial Rate : 113 BPM P-R Int : 168 ms QRS Dur : 078 ms QT Int : 318 ms P-R-T Axes : 083 090 059 degrees QTc Int : 436 ms Sinus tachycardia Rightward axis Borderline ECG Confirmed by AMINATA PEDROZA, JOSE ([id number]), supervising film or videotape editor ZAHIRA BARRIENTOS ([id number]) on 06/11/2018 3:21:10 PM Referred By: JULIO Confirmed By:JOSE COATES MD
--- NOTE | 2018-06-07 10:09 | CT_ITS ---
STUDY: CTA CHEST REASON FOR EXAM: Female, 53 years old. CHEST PAIN RADIATION DOSAGE (If Supplied By Facility): CTDIvol = ( 5.02 ) mGy, DLP = ( 192.82 ) mGycm TECHNIQUE: The examination was performed with the intravenous administration of 100 ml of Isovue 370 contrast material. Post-processing of the angiographic images was performed, with multiplanar reformation and 3D reconstruction. Individualized dose optimization techniques were used for this CT. COMPARISON: None. FINDINGS: Normal enhancement of the main pulmonary artery and right and left pulmonary arteries. Normal enhancement of the bilateral peripheral pulmonary arteries. There is no demonstrated pulmonary embolism. Normal thoracic aorta and visualized great vessels. There is no demonstrated aortic dissection. Normal heart and pericardium. Normal mediastinum. Normal hilar regions. Normal visualized trachea and bronchi. The lungs are well expanded. Normal pulmonary parenchyma. Normal pleura. Normal chest wall structures. Mild degenerative endplate changes are noted. Normal visualized upper abdomen. CT/CTA Chest W/WO Contrast IMPRESSION: Normal CTA chest examination, without a demonstrated pulmonary embolism or arterial dissection. Electronically Signed: Ainsley Smith MD at 11:14 EDT , Service support ,
--- NOTE | 2018-06-07 10:09 | ED.VISSUMM ---
- ER Visit Summary Date of Service: 06/07/18 Chief Complaint: [] Right-sided chest pain for 2 weeks occasional cough History of Present Illness: The patient is a 53 F [] hx of high blood pressure diabetes high cholesterol, reports right-sided chest pain for 2 weeks occasional cough dry nonproductive no fever, she has no history of [place] PE DVT bowel bladder habits have been normal she did not injure her body anyway, all of her other health conditions have been stable she takes metformin for her diabetes, she has no GI complaints, she spoke with her family doctors and was told to come in for evaluation Physical Examination: [] She is pointing to the right chest her vital signs are within normal range her heart rates about 105 her HEENT exam is unremarkable the neck is supple the lungs are diminished to the right heart tones sound regular the abdomen is soft nontender upper lower extremities and back are unremarkable the skin is unremarkable she has full range of motion of her extremities her pulses are symmetric bilaterally her EKG shows a sinus tachycardia 110 no acute injury pattern appreciated Test Results: [] Emergency Department Course and Treatment: [] Screening labs are obtained CTA IV fluids pain management The patient's remained stable here in the department, her EKG shows a sinus rhythm nothing acute, her screening labs troponin chest x-ray and CT are unremarkable Discussed all these tests with her I discussed management options, she indicates she does not feel well enough to be discharged home because the nature of the right sided chest pain and she would like to be admitted for further management, at this time given all the above I asked the hospitalist to see her for further management and admission or other management options Treatment Plan: [] Disposition: [] Pending hospitalist evaluation Impression: [] Right-sided chest pain etiology unclear Please note the patient was seen by Dr. Granados, hospitalist service, he discussed the case with the patient in detail including her prior negative cardiac cath and other evaluation, he discussed inpatient versus outpatient management with her and per Dr. Fernandez, the patient does not wish to be admitted she would prefer to go home he has prescribed Toradol and a Medrol Dosepak and asked her to follow-up with her physicians and return for change in symptoms This note was generated with [employer] software. It may contain incorrect words, spelling, and punctuation that were not noted in review of the chart prior to signing ED Disposition - Plan for ED Patient: Chief Complaint: Chest Other Referrals: Bret You Chi, MD [Primary Care Provider] -
[2018-06-07] MEDS: morphine 8 MG/ML Syringe IV (10:19)
[2018-06-07] MEDS: Ondansetron 4 MG/2 ML Vial IV (10:19)
[2018-06-07] MEDS: Aspirin 81 MG TAB.CHEW 324 MG PO (10:20)
[2018-06-07 10:21] VITALS: O2SAT 96
[2018-06-07 10:24] LABS: Absolute Lymphocyte Count 1.99 X10^3/ul (0.83-4.51); Basophil# 0.03 X10^3/uL; Basophil% 0.4 % (0-1); Eosinophil# 0.17 X10^3/uL; Eosinophils% 2.5 % (0-5); Hematocrit 34.1 % (37-47); Hemoglobin 11.5 g/dl (12.0-15.0); Lymphocyte # 1.99 X10^3/ul (4.0); Lymphocyte % 29.5 % (19-41); Mean Corp Hgb Conc 33.7 g/gl (32-36); Mean Platelet Vol. 8.5 fl (6.2-12.0); Monocyte# 0.51 X10^3/uL; Monocyte% 7.6 % (0-10); Neutrophil # 4.04 X10^3/uL (2.7-7.7); Neutrophil % 59.9 % (47-70); Platelet Count 378 K/mm3 (150-450); RBC Distribution Width CV 13.3 % (11.6-14.6); RBC Distribution Width SD 46.1 fl (35.1-43.9); Red Blood Count 3.48 M/mm3 (4.2-5.4); White Blood Count 6.8 K/mm3 (4.4-11.0)
[2018-06-07 10:28] VITALS: BP 91/50; PULSE 89; RESP 11; O2SAT 99
[2018-06-07 10:29] LABS: POSITIVE COUNT NO; POSITIVE DIFFERENTIAL NO; POSITIVE MORPHOLOGY NO
[2018-06-07 10:35] LABS: Anion Gap 8 (5-15); BUN 13 mg/dL (7-18); BUN/Creat Ratio 10.3 RATIO (10-20); Calcium,Total 9.1 mg/dL (8.5-10.1); Chloride 102 mmol/L (98-107); Creatinine, Serum 1.26 mg/dL (0.55-1.02); EST Glomerular Filtration Rate 47 mL/min (>60); Est Glom Filt Rate - Afr Amer 57 mL/min (>60); Estimated Creatinine Clearance 37.09 ml/min; Glucose 211 mg/dL (74-106); Potassium 4.2 mmol/L (3.5-5.1); Sodium Level 137 mmol/L (136-145)
--- NOTE | 2018-06-07 10:45 | RAD_ITS ---
STUDY: X-RAY CHEST REASON FOR EXAM: Female, 53 years old. ONSET CHEST PAIN TECHNIQUE: Single AP portable view of the chest. COMPARISON: CTA same date, chest x-ray May 24, 2018 FINDINGS: Cardiac monitoring leads are present. The lungs are clear and expanded. There is no demonstrated pleural abnormality. Normal size heart. Normal mediastinum and lauryn. Normal visualized pulmonary arteries. There is atherosclerotic calcification of the aortic arch with tortuosity. Normal visualized thoracic spine. Normal visualized ribs, clavicles, and shoulders. There is no demonstrated abnormality of the visualized soft tissue structures of the upper abdomen. RAD/Chest 1 View (Portable) IMPRESSION: Normal x-ray examination of the chest. Electronically Signed: Ainsley Smith MD at 11:32 EDT , Service support ,
[2018-06-07 10:52] LABS: BNP,B-Type NATRIURETIC PEPTIDE 10.8 pg/mL (0-100)
[2018-06-07] MEDS: 0.9% Normal Saline 1,000 ML 250 ML IV (11:21)
[2018-06-07 11:23] VITALS: BP 88/48; PULSE 81; RESP 14; O2SAT 98
--- NOTE | 2018-06-07 12:17 | NURSING ---
DR JULIO FOR DR KIM
--- NOTE | 2018-06-07 12:33 | NURSING ---
DR MICHEL IN WITH PATIENT
--- NOTE | 2018-06-07 12:44 | ED.DEP ---
ED Disposition - Plan for ED Patient: Chief Complaint: Chest Other Instructions: ED Chest Pain Atypical Unkn Cause Referrals: Bret You Chi, MD [Primary Care Provider] -
--- NOTE | 2018-06-07 12:44 | ED.DEP ---
ED Disposition - Plan for ED Patient: Chief Complaint: Chest Other Instructions: ED Chest Pain Atypical Unkn Cause Referrals: Bret You Chi, MD [Primary Care Provider] -
[2018-06-07 13:05] VITALS: BP 102/58; PULSE 71; RESP 16; O2SAT 96
--- NOTE | 2018-06-08 15:12 | PCM.HOSP.N ---
Hospitalist Note The date of this note should be 06/07/18: Patient was seen and examined in the emergency room at [facility] today, I was called by the emergency room physician to assess the patient for possible admission due to chest pain. I went over the patient's old medical records, it appears that she underwent a cardiac catheterization in July 2017 which showed no coronary disease. Today patient came to the emergency room with complaints of right lower rib pain, she stated that the discomfort was more pronounced when she took in a deep breath or coughed. Patient denied any hemoptysis, she denied any shortness of breath, and she denied any precordial chest pain to this examiner. On examination, patient's lungs were clear bilaterally apex to base it was no rhonchi rales or wheezing noted, patient did not appear to be short of breath. Heart: Heart rate and rhythm is regular, no ectopy was noted, no murmurs were auscultated, there was normal S1 and S2, there were no gallops or rubs noted. Extremities there is no lower extremity edema noted. Abdomen: Abdomen was soft, nontender. Neuro: Cranial nerves II through XII are grossly intact, no neurological deficits were noted. Psych: Patient was alert and oriented x3 and appeared appropriate. Musculoskeletal: Palpation of the right lower lateral rib area elicited tenderness on palpation, patient stated that she described her discomfort over her right lower rib cage as being identical to that on palpation to the area. Evaluation in the emergency room included troponin which was unremarkable, CBC which was unremarkable except for a hemoglobin of 11.5, Chem panel which was also remarkable for a glucose of 211 and a creatinine of 1.26. Beta natruretic peptide was 10.8. Patient's EKG showed a normal sinus rhythm without evidence of ischemic changes. CT of the chest was performed which showed no evidence of pulmonary emboli or other acute process. Impression: #1 musculoskeletal chest pain-I recommended that the patient take a Medrol Dosepak and use Toradol for the next 5 days as needed, I gave her a prescription for both these medications, she is to follow-up with her PCP next week if problems continue, I told her that I did not feel given her exam and her medical workup in the ER that she needed to be admitted to the hospital. Patient was okay with this, I also discussed this with the emergency room physician and he was okay with this. #2 Type 2 diabetes #3 COPD-patient states she sees pulmonary medicine on a chronic basis. Code Visit Office Visits / Consults: 00020 OP Consult L3
== END 2018-06-07 13:06 | disposition home or self-care (01) ==
LOC: ED 10:17
PROVIDERS: Emergency Provider Emergency Medicine; Family Provider Family Medicine Geriatric Medicine; PCP Family Medicine Geriatric Medicine
DX: R07.9 Chest pain, unspecified (principal); I10 Essential (primary) hypertension; E11.9 Type 2 diabetes mellitus without complications; E78.00 Pure hypercholesterolemia, unspecified; Z79.84 Long term (current) use of oral hypoglycemic drugs; Z79.899 Other long term (current) drug therapy
CPT/HCPCS: 71045; 71275; 80048; 83880; 84484; 85025; 93005; 96361; 96374; 96375; 99284; J7030; J7040; Q9967; A4216; J2405

== ENCOUNTER → 2018-06-19 10:31 | Outpatient (CLI) | payer MEDICAID, SELFPAY | PROVIDERS: Family Provider Family Medicine Geriatric Medicine; PCP Family Medicine Geriatric Medicine; Referring Provider Nurse Practitioner Acute Care; Visit Provider Nurse Practitioner Acute Care | DX: J43.9 Emphysema, unspecified (principal) | CPT/HCPCS: 87070; 87205 ==

== ENCOUNTER → 2018-08-29 09:47 | Outpatient (CLI) | payer MEDICAID, SELFPAY ==
[2018-08-29 12:49] LABS: Absolute Lymphocyte Count 1.97 X10^3/ul (0.83-4.51); Absolute Neutrophil Count 4.5 X10^3/uL (2.0-7.7); Basophil# 0.02 X10^3/uL; Basophil% 0.3 % (0-1); Eosinophil# 0.24 X10^3/uL; Eosinophils% 3.2 % (0-5); Hematocrit 35.5 % (37-47); Hemoglobin 11.7 g/dl (12.0-15.0); Lymphocyte # 1.97 X10^3/ul (4.0); Lymphocyte % 26.7 % (19-41); Mean Corpuscular Hgb 31.9 pg (27.0-32.0); Mean Corpuscular Volume 96.7 fL (81-99); Mean Platelet Vol. 8.3 fl (6.2-12.0); Monocyte# 0.62 X10^3/uL; Monocyte% 8.4 % (0-10); Neutrophil # 4.53 X10^3/uL (2.7-7.7); Neutrophil % 61.3 % (47-70); Platelet Count 375 K/mm3 (150-450); RBC Distribution Width CV 13.5 % (11.6-14.6); RBC Distribution Width SD 48.2 fl (35.1-43.9); Red Blood Count 3.67 M/mm3 (4.2-5.4); White Blood Count 7.4 K/mm3 (4.4-11.0)
[2018-08-29 12:51] LABS: POSITIVE COUNT NO; POSITIVE DIFFERENTIAL NO; POSITIVE MORPHOLOGY NO
[2018-08-29 13:14] LABS: ALB/GLOB Ratio 1.3 RATIO (0.9-2.4); AST(SGOT) 15 U/L (15-37); Alanine Aminotransfer ALT/SGPT 34 U/L (13-56); Albumin, Serum 3.9 g/dL (3.2-5.0); Alkaline Phosphatase 82 U/L (45-117); Anion Gap 11 (5-15); BUN 19 mg/dL (7-18); Calcium,Total 8.8 mg/dL (8.5-10.1); Chloride 103 mmol/L (98-107); Creatinine, Serum 0.91 mg/dL (0.55-1.02); EST Glomerular Filtration Rate 69 mL/min (>60); Est Glom Filt Rate - Afr Amer 84 mL/min (>60); Glucose 89 mg/dL (74-106); Potassium 4.2 mmol/L (3.5-5.1); Protein, Total 6.9 g/dL (6.4-8.2); Sodium Level 136 mmol/L (136-145); Thyroid Stim Hormone (TSH) 1.55 uIU/mL (0.358-3.74)
== END ==
PROVIDERS: Family Provider Family Medicine Geriatric Medicine; PCP Family Medicine Geriatric Medicine; Visit Provider Family Medicine Geriatric Medicine
DX: I10 Essential (primary) hypertension (principal); F32.9 Major depressive disorder, single episode, unspecified
CPT/HCPCS: 36415; 80053; 84443; 85025

== ENCOUNTER 2018-11-30 19:25 | Emergency (ER) | payer MEDICAID, SELFPAY ==
[2018-10-03 09:03] VITALS: BMI 23.8
[2018-11-30 19:26] VITALS: BP 134/68; PULSE 110; RESP 18; TEMP 36.6; O2SAT 99; BMI 24.4
--- NOTE | 2018-11-30 19:37 | EKG12_ITS ---
Test Reason : Blood Pressure : / mmHG Vent. Rate : 093 BPM Atrial Rate : 093 BPM P-R Int : 188 ms QRS Dur : 086 ms QT Int : 348 ms P-R-T Axes : 068 062 054 degrees QTc Int : 432 ms Normal sinus rhythm Normal ECG Confirmed by AMINATA PEDROZA, JOSE ([id number]), telegraph editor TIFFANIE CARDONA ([id number]) on 12/03/2018 10:58:38 AM Referred By: REJI Confirmed By:JOSE COATES MD
[2018-11-30 19:41] VITALS: BP 120/54; PULSE 99; RESP 18; O2SAT 98
[2018-11-30 19:55] VITALS: O2SAT 98
[2018-11-30] MEDS: MethylPREDNISolone 125 MG/2 ML Vial IV (19:56)
[2018-11-30] MEDS: 0.9% Normal Saline 1,000 ML 1000 ML IV (19:57)
[2018-11-30] MEDS: Ipratropium/Albuterol Sulfate 3 ML AMPUL.NEB INHALATION (19:57)
--- NOTE | 2018-11-30 20:10 | RAD_ITS ---
HISTORY: chest pain EXAM: XR Chest 2 Views COMPARISON: 06/07/18 CXR FINDINGS: LINES/DEVICES: None. LUNGS: Radiographically clear. No consolidation, edema or effusion. No pneumothorax. Slightly hyperinflated and lucent lungs. MEDIASTINUM AND CARDIOVASCULAR STRUCTURES: Cardiac silhouette not enlarged. Central airways and mediastinal contour are unremarkable. BONES AND SOFT TISSUES: Unremarkable. RAD/Chest PA and Lateral IMPRESSION: Suspect mild COPD. No radiographic evidence of acute cardiopulmonary disease. at 2038 Reported and signed by: Dylan Correia MD Electronically Signed: Dylan Correia, at 20:37 EDT Tel , Service support ,
[2018-11-30 20:14] LABS: Absolute Lymphocyte Count 2.38 X10^3/ul (0.83-4.51); Absolute Neutrophil Count 3.6 X10^3/uL (2.0-7.7); Basophil# 0.02 X10^3/uL; Basophil% 0.3 % (0-1); Eosinophil# 0.23 X10^3/uL; Eosinophils% 3.3 % (0-5); Hematocrit 32.6 % (37-47); Hemoglobin 11.2 g/dl (12.0-15.0); Lymphocyte # 2.38 X10^3/ul (4.0); Mean Corp Hgb Conc 34.4 g/gl (32-36); Mean Corpuscular Hgb 33.2 pg (27.0-32.0); Mean Corpuscular Volume 96.7 fL (81-99); Mean Platelet Vol. 8.3 fl (6.2-12.0); Monocyte# 0.73 X10^3/uL; Monocyte% 10.4 % (0-10); Neutrophil # 3.62 X10^3/uL (2.7-7.7); Neutrophil % 51.9 % (47-70); Platelet Count 361 K/mm3 (150-450); RBC Distribution Width CV 12.9 % (11.6-14.6); Red Blood Count 3.37 M/mm3 (4.2-5.4)
[2018-11-30 20:16] LABS: POSITIVE COUNT NO; POSITIVE DIFFERENTIAL NO; POSITIVE MORPHOLOGY NO
[2018-11-30 20:21] VITALS: PULSE 106; RESP 18
[2018-11-30 20:28] LABS: ALB/GLOB Ratio 1.3 RATIO (0.9-2.4); AST(SGOT) 14 U/L (15-37); Alanine Aminotransfer ALT/SGPT 22 U/L (13-56); Albumin, Serum 3.8 g/dL (3.2-5.0); Alkaline Phosphatase 93 U/L (45-117); Anion Gap 8 (5-15); BUN 13 mg/dL (7-18); Calcium,Total 8.7 mg/dL (8.5-10.1); Chloride 106 mmol/L (98-107); Creatinine, Serum 0.87 mg/dL (0.55-1.02); EST Glomerular Filtration Rate 73 mL/min (>60); Est Glom Filt Rate - Afr Amer 88 mL/min (>60); Estimated Creatinine Clearance 53.72 ml/min; Glucose 151 mg/dL (74-106); Potassium 3.9 mmol/L (3.5-5.1); Protein, Total 6.8 g/dL (6.4-8.2); Sodium Level 140 mmol/L (136-145)
--- NOTE | 2018-11-30 20:45 | ED.DCSUM_ITS ---
- ER Visit Summary Date of Service: 11/30/18 Chief Complaint: Cough, shortness of breath History of Present Illness: The patient is a 53 F with history of asthma presents to the emergency department cough and shortness of breath. Patient had infectious symptoms for the past 24 hours. She states that she has had cough with some productive sputum. She is also had central chest pain is worse with coughing. The patient does have a history of smoking. She is also admitted to fever and chills. Patient has a history of pneumonia and states this feels similar. She denies any recent travel. She denies any pain when she takes a deep breath. She has no history of pulmonary embolus. Physical Examination: Vital signs reviewed General: Well-nourished, well-developed Head: Normocephalic, atraumatic Eyes: Pupils equal and reactive, extraocular muscles intact Neck, supple, no lymphadenopathy Heart: Regular rate and rhythm Respiratory: No distress, wheezing in all lung peters Abdomen: Soft, nontender, nondistended, no peritoneal signs Back: Nontender Extremities: Nontender, no edema, no cords Skin: Normal color no rash Neuro: Alert and oriented, no focal or lateralizing deficits Test Results: [] Emergency Department Course and Treatment: The patient does seem to have infectious symptoms. EKG was obtained which was sinus rhythm without acute ischemia. Cardiac enzymes are normal. Patient was given fluids, steroids, and nebulized breathing treatments. Her aeration is improved. She was resting more comfortably. X-ray does not show focal infiltrate. Given patient's history of underlying lung disease, I am going to treat her with antibiotics and steroids. She is comfortable with this plan of care. She has no tachycardia. She has no tachypnea. I do feel that she is safe for outpatient therapy. Treatment Plan: [] Disposition: Discharge Impression: 1. Acute bronchitis with bronchospasm This note was generated with [employer] dictation software. It may contain incorrect words, spelling, and punctuation that were not noted in review of the chart prior to signing ED Disposition - Plan for ED Patient: Instructions: ED Upper Resp Infec Abx Tx Prescriptions: Azithromycin [Zithromax] 250 mg PO DAILY #4 tab Prednisone [Deltasone] 40 mg PO DAILY #10 tab Referrals: Bret You Chi, MD [Primary Care Provider] -
[2018-11-30 20:51] VITALS: BP 118/65; PULSE 95; RESP 21; O2SAT 98
[2018-11-30] MEDS: Azithromycin 250 MG Tablet 500 MG PO (20:51)
== END 2018-11-30 20:52 | disposition home or self-care (01) ==
LOC: ED 19:46
PROVIDERS: Emergency Provider Emergency Medicine; Family Provider Family Medicine Geriatric Medicine; PCP Family Medicine Geriatric Medicine
DX: J20.9 Acute bronchitis, unspecified (principal); E11.9 Type 2 diabetes mellitus without complications; I10 Essential (primary) hypertension; Z87.891 Personal history of nicotine dependence
CPT/HCPCS: 71046; 80053; 84484; 85025; 93005; 94640; 96361; 96374; 99285; J7030

== ENCOUNTER → 2018-12-05 | Outpatient (CLI) | payer MEDICAID, SELFPAY ==
[2018-11-30 19:26] VITALS: BMI 24.4
[2018-12-05 17:41] LABS: Absolute Lymphocyte Count 4.78 X10^3/ul (0.83-4.51); Basophil# 0.01 X10^3/uL; Basophil% 0.1 % (0-1); Eosinophil# 0.27 X10^3/uL; Eosinophils% 2.5 % (0-5); Hematocrit 34.6 % (37-47); Hemoglobin 11.8 g/dl (12.0-15.0); Lymphocyte # 4.78 X10^3/ul (4.0); Lymphocyte % 43.5 % (19-41); Mean Corp Hgb Conc 34.1 g/gl (32-36); Mean Corpuscular Hgb 32.3 pg (27.0-32.0); Mean Corpuscular Volume 94.8 fL (81-99); Mean Platelet Vol. 8.6 fl (6.2-12.0); Monocyte# 0.91 X10^3/uL; Monocyte% 8.3 % (0-10); Neutrophil # 4.96 X10^3/uL (2.7-7.7); Neutrophil % 45.1 % (47-70); Platelet Count 495 K/mm3 (150-450); RBC Distribution Width CV 12.3 % (11.6-14.6); RBC Distribution Width SD 41.5 fl (35.1-43.9); Red Blood Count 3.65 M/mm3 (4.2-5.4)
[2018-12-05 17:44] LABS: POSITIVE COUNT NO; POSITIVE DIFFERENTIAL NO; POSITIVE MORPHOLOGY NO
[2018-12-05 17:59] LABS: ALB/GLOB Ratio 1.3 RATIO (0.9-2.4); AST(SGOT) 11 U/L (15-37); Alanine Aminotransfer ALT/SGPT 29 U/L (13-56); Albumin, Serum 3.9 g/dL (3.2-5.0); Alkaline Phosphatase 87 U/L (45-117); Anion Gap 8 (5-15); BUN 21 mg/dL (7-18); BUN/Creat Ratio 21.7 RATIO (10-20); Calcium,Total 8.7 mg/dL (8.5-10.1); Chloride 103 mmol/L (98-107); Creatinine, Serum 0.97 mg/dL (0.55-1.02); EST Glomerular Filtration Rate 64 mL/min (>60); Est Glom Filt Rate - Afr Amer 77 mL/min (>60); Globulin 2.9 g/dL (2.2-4.2); Glucose 187 mg/dL (74-106); Potassium 3.7 mmol/L (3.5-5.1); Protein, Total 6.8 g/dL (6.4-8.2); Sodium Level 136 mmol/L (136-145); Thyroid Stim Hormone (TSH) 3.28 uIU/mL (0.358-3.74)
== END | disposition home or self-care (01) ==
LOC: POLAB3 15:31 → PSN 17:12
PROVIDERS: Family Provider Family Medicine Geriatric Medicine; PCP Family Medicine Geriatric Medicine; Referring Provider Family Medicine Geriatric Medicine; Visit Provider Family Medicine Geriatric Medicine
DX: R68.83 Chills (without fever) (principal); E11.9 Type 2 diabetes mellitus without complications; I10 Essential (primary) hypertension
CPT/HCPCS: 36415; 80053; 84443; 85025; 87633

== ENCOUNTER 2018-12-12 18:41 | Observation (INO) | payer MEDICAID, SELFPAY ==
[2018-12-12] VITALS (7 sets, daily range): BP systolic 104–131; BP diastolic 59–67; PULSE 82–118; RESP 17–23; TEMP 36.1–36.5; O2SAT 96–99; BMI 24.0; BMI 26.4
--- NOTE | 2018-12-12 18:50 | ED.RN ---
DESK MONITOR CALLED FOR EKG AT 1849.
--- NOTE | 2018-12-12 18:51 | ED.RN ---
RT ARRIVED IN TRIAGE ROOM TO COMPLETE EKG
--- NOTE | 2018-12-12 18:53 | RAD_ITS ---
STUDY: X-RAY CHEST REASON FOR EXAM: Female, 53 years old. Chest pain TECHNIQUE: AP portable COMPARISON: November 30, 2018 FINDINGS: The lungs are clear and expanded. There is no demonstrated pleural abnormality. Normal size heart. Normal mediastinum and lauryn. Normal visualized pulmonary arteries. Mildly calcified aortic arch and descending thoracic aorta. Normal visualized thoracic spine. Normal visualized ribs, clavicles, and shoulders. There is no demonstrated abnormality of the visualized soft tissue structures of the upper abdomen. No significant change since prior exam RAD/Chest 1 View (Portable) IMPRESSION: No acute cardiopulmonary pathology Electronically Signed: Oliverio Frederick MD at 19:20 EDT , Service support ,
--- NOTE | 2018-12-12 18:53 | EKG12_ITS ---
Test Reason : CP,SOB,DIZZINESS Blood Pressure : / mmHG Vent. Rate : 118 BPM Atrial Rate : 118 BPM P-R Int : 158 ms QRS Dur : 078 ms QT Int : 316 ms P-R-T Axes : 047 073 055 degrees QTc Int : 442 ms Sinus tachycardia Otherwise normal ECG Confirmed by ROSEY PEDROZA, ZOYA ([id number]), assistant editor TIFFANIE CARDONA ([id number]) on 12/17/2018 10:02:37 AM Referred By: Alberto Muniz Confirmed By:ZOYA CURRIE MD
[2018-12-12 19:36] LABS: Anion Gap 8 (5-15); BUN 21 mg/dL (7-18); BUN/Creat Ratio 19.1 RATIO (10-20); Chloride 103 mmol/L (98-107); EST Glomerular Filtration Rate 55 mL/min (>60); Est Glom Filt Rate - Afr Amer 67 mL/min (>60); Estimated Creatinine Clearance 42.48 ml/min; Glucose 234 mg/dL (74-106); Potassium 4.7 mmol/L (3.5-5.1); Sodium Level 136 mmol/L (136-145)
[2018-12-12 19:48] LABS: Absolute Lymphocyte Count 2.86 X10^3/ul (0.83-4.51); Absolute Neutrophil Count 7.9 X10^3/uL (2.0-7.7); Basophil# 0.02 X10^3/uL; Basophil% 0.2 % (0-1); Eosinophil# 0.36 X10^3/uL; Hematocrit 35.5 % (37-47); Lymphocyte # 2.86 X10^3/ul (4.0); Lymphocyte % 23.8 % (19-41); Mean Corp Hgb Conc 33.8 g/gl (32-36); Mean Corpuscular Hgb 32.5 pg (27.0-32.0); Mean Corpuscular Volume 96.2 fL (81-99); Mean Platelet Vol. 8.4 fl (6.2-12.0); Monocyte# 0.88 X10^3/uL; Monocyte% 7.3 % (0-10); Neutrophil # 7.85 X10^3/uL (2.7-7.7); Neutrophil % 65.4 % (47-70); Platelet Count 402 K/mm3 (150-450); RBC Distribution Width CV 12.7 % (11.6-14.6); RBC Distribution Width SD 44.5 fl (35.1-43.9); Red Blood Count 3.69 M/mm3 (4.2-5.4)
[2018-12-12 19:51] LABS: POSITIVE COUNT NO; POSITIVE DIFFERENTIAL NO; POSITIVE MORPHOLOGY NO
--- NOTE | 2018-12-12 19:54 | CT_ITS ---
STUDY: CTA CHEST REASON FOR EXAM: Female, 53 years old. Chest pain RADIATION DOSAGE (If Supplied By Facility): CTDIvol = ( 5.07 ) mGy, DLP = ( 198.41 ) mGycm TECHNIQUE: The examination was performed with the intravenous administration of 100 IV Isovue 370. Post-processing of the angiographic images was performed, with multiplanar reformation and 3D reconstruction. Individualized dose optimization techniques were used for this CT. COMPARISON: June 07, 2018 FINDINGS: Normal enhancement of the main pulmonary artery and right and left pulmonary arteries. Normal enhancement of the bilateral peripheral pulmonary arteries. There is no demonstrated pulmonary embolism. Normal thoracic aorta and visualized great vessels. There is no demonstrated aortic dissection. Normal heart and pericardium. Normal mediastinum. Normal hilar regions. Normal visualized trachea and bronchi. The lungs are well expanded. Normal pulmonary parenchyma. Normal pleura. Normal chest wall structures. Dorsal spine demonstrates mild spondylosis Normal visualized upper abdomen. No significant change since prior study CT/CTA Chest W/WO Contrast IMPRESSION: No acute abnormalities. . No evidence for pulmonary embolus aortic aneurysm periaortic leak or dissection. Electronically Signed: Oliverio Frederick MD at 21:01 EDT , Service support ,
--- NOTE | 2018-12-12 21:59 | ED.DCSUM_ITS ---
- ER Visit Summary Date of Service: 12/12/18 Chief Complaint: Chest pain History of Present Illness: The patient is a 53 F with chest pain that woke her up today at 3 AM. The pain radiated through to her back. She reports shortness of breath, dizziness, and left arm numbness. She has a history of diabetes, hypertension, and hyperlipidemia. Her father had an IA and her mother also had heart disease. She is a prior smoker. She had a stress test just over a year ago and it was unremarkable. Physical Examination: Afebrile and vital signs are unremarkable. Patient is alert and oriented. Heart regular rate and rhythm. Lungs clear. Abdomen soft and nontender. Skin appears normal. Calf soft and supple. Pulses strong and equal. Test Results: EKG showed sinus rhythm at a rate of 118. No sign of ischemia or infarction pattern. White count 12.0. Glucose 234, BUN 21, creatinine 1.1. Troponin normal. Chest x-ray showed nothing acute. CTA was normal as well. Emergency Department Course and Treatment: Patient was seen and placed on the monitor. Nursing started their protocol orders. These were unremarkable. Patient had back pain as well as numbness in her left arm. I was concerned for aortic pathology. CTA was ordered and was unremarkable. Patient has remained stable. She has multiple risk factors for ACS. Hospitalist was contacted for observation. Treatment Plan: As above Disposition: Admission Impression: 1. Chest pain This note was generated with [employer] dictation software. It may contain incorrect words, spelling, and punctuation that were not noted in review of the chart prior to signing ED Disposition - Plan for ED Patient: Referrals: Bret You Chi, MD [Primary Care Provider] -
--- NOTE | 2018-12-12 22:04 | HP.PCM_ITS ---
Problem List (1) Chest pain Status: Acute History of Present Illness Date of Admission: 12/12/18 Chief Complaint: chest pain The patient is a 53 year old F with a significant history of diabetes mellitus; hyperlipidemia; tobacco abuse; hypothyroidism; COPD who presented to the emergency department with 1 day history of episodic substernal chest pain. She reported that her pain started from her mid back and it migrated to her substernal chest. She first noticed the pain when it woke her up from her sleep at 3am in the morning. At the onset she rated her pain as 10 out of 10. The pain went away and returned again with an intensity of about 8 out of 10. The pain radiates to her left arm. Her left arm feel numb. Associated with her symptoms is lightheadedness. She denies any aggravating or ameliorating factors. She denies any nausea, vomiting or diaphoresis. At the emergency department her EKG showed sinus rhythm. Initial troponin was negative. Chest x-ray and CTPA was unremarkable. She reported a strong family history of cardiac disease where her father had multiple heart attacks with the first heart attack in his mid 40s. Past Medical History Past Medical History (Chronic Problems): Chronic Problems (Last Reviewed 12/12/18 @ 22:45 by Alberto Muniz MD) Mild intermittent acute asthmatic bronchitis (Chronic) Hypothyroidism (Chronic) Diabetes type 2, controlled (Chronic) History of tobacco use (Chronic) Diabetes type 2, uncontrolled (Chronic) Dyslipidemia (Chronic) COPD (chronic obstructive pulmonary disease) with emphysema (Chronic) Medical History: Medical History (Last Reviewed 12/12/18 @ 22:45 by Alberto Muniz MD) Hypothyroidism (Chronic) E03.9 Depression (Acute) F32.9 Insomnia (Acute) G47.00 Diabetes type 2, controlled (Chronic) E11.9 History of hysterectomy (Resolved) Z90.710 History of tobacco use (Chronic) Z87.891 Diabetes type 2, uncontrolled (Chronic) E11.65 Dyslipidemia (Chronic) E78.5 COPD (chronic obstructive pulmonary disease) with emphysema (Chronic) J43.9 Right lower lobe pneumonia (Acute) J18.9 Left arm numbness (Acute) R20.0 Unstable angina (Acute) I20.0 Abnormal stress test (Acute) R94.39 Calcification of left breast R92.1 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 H/O: hysterectomy Z98.890, Z90.710 2001 Allergies prochlorperazine edisylate [From Compazine] Allergy (Verified 12/12/18 18:45) Rash prochlorperazine maleate [From Compazine] Allergy (Verified 12/12/18 18:45) Rash Home Medications: Ambulatory Orders Medication Instructions Recorded Atorvastatin Calcium [Lipitor] 40 mg PO QHS 08/11/14 Sertraline HCl [Zoloft] 100 mg PO DAILY 08/11/14 lisinopril 5 mg tablet 5 mg PO DAILY 10/24/17 metformin 500 mg tablet 1,000 mg PO BID 12/21/17 Levothyroxine [Synthroid] 25 mcg PO DAILY 05/09/18 Paroxetine HCl [Paxil] 40 mg PO DAILY 05/09/18 prednisone 10 mg tablet 10 mg PO QDAY #30 tab 06/18/18 Azithromycin [Zithromax] 250 mg PO DAILY #4 tab 11/30/18 Surgical History: Surgical History (Last Reviewed 12/12/18 @ 22:45 by Alberto Muniz MD) Hx of cardiac catheterization (Acute) Z98.890 history stereotactic biopsy left breast Onset Date: ~12/22/17 heart catheterization 2001 Surgical History: hysterectomy Psychiatric History: Anxiety, Depression [employer] History: No pertinent [employer] history Smoking Status: Light Smoker (<10/day) Tobacco Use: Cigarettes Alcohol: None - *Family History Maternal Family History: Family History (Last Reviewed 12/12/18 @ 22:45 by Alberto Muniz MD) Father Myocardial infarction CVA (cerebral vascular accident) Mother Seizures Heart disease Sister Seizures History Items: Heart Disease - s/p stents Paternal Family History: Family History (Last Reviewed 12/12/18 @ 22:45 by Alberto Muniz MD) Father Myocardial infarction CVA (cerebral vascular accident) Mother Seizures Heart disease Sister Seizures History Items: - - Denies history of lung cancer. Review of Systems Constitutional: Denies: Chills, Fever, Weight Change HEENT: Denies: Head Aches, Sinus Congestion, Sinus Drainage Cardiovascular: Reports: Chest Pain. Denies: Palpitations Respiratory: Denies: Cough, Shortness of breath at rest, Sputum production Gastrointestinal: Denies: Abdominal Pain, Nausea, Vomiting Genitourinary: Denies: Dysuria Musculoskeletal: Reports: Arm Pain, Back Pain. Denies: Joint Pain, Joint Tenderness Skin: Denies: Rash, Wounds Neurological: Denies: Numbness, Tingling, Focal weakness Psychiatric: Denies: Anxiety, Depression, Homicidal Ideations, Suicidal Ideations Hematologic/ Lymphatic: Denies: Easy Bruising, Easy Bleeding VTE Information - Inpt Only VTE Present on Admission: No VTE Mechan Device Prophylaxis: None VTE Pharm Prophylaxis ordered?: Yes Patient Problems: Active and Suspected Problems (Last Reviewed 12/12/18 @ 22:45 by Alberto Muniz MD) Chest pain (Acute) - Physical Exam General: Alert, Oriented x3, Cooperative HEENT: Atraumatic, PERRLA, EOMI, Normocephalic Neck: Supple, No JVD, Negative Carotid Bruits Lungs: Clear to auscultation, Normal air movement, Tachypneic Cardiovascular: Regular rate, No murmurs Abdomen: Bowel Sounds Present, Soft, Non Tender Extremities: No edema, Capillary Refill Less than 3 Seconds Skin: No rashes, No breakdown Musculoskeletal: No Tenderness to Palpation of Joints or Extremities Neurological: Cranial nerves II-XII grossly intact Psych/Mental Status: Normal Affect, Appropriate Vital Signs Temp Pulse Resp BP Pulse Ox 97 F L 92 23 H 104/59 L 99 12/12/18 18:42 12/12/18 22:03 12/12/18 22:03 12/12/18 22:03 12/12/18 22:03 Oxygen Flow Rate (L/min) 2 Oxygen Delivery Method Nasal Cannula Weight: 55.868 kg Body Mass Index (BMI) 24.0 Finger Stick Blood Glucose 93 Laboratory Tests Past 24 Hrs 12/12/18 12/12/18 19:10 19:10 WBC 12.0 H RBC 3.69 L Hgb 12.0 Hct 35.5 L MCV 96.2 MCH 32.5 H MCHC 33.8 RDW 12.7 RDW Differential 44.5 H Plt Count 402 MPV 8.4 Immature Gran % (Auto) 0.300 Neut % (Auto) 65.4 Lymph % (Auto) 23.8 [place] % (Auto) 7.3 Eos % (Auto) 3.0 Baso % (Auto) 0.2 Absolute Neuts (auto) 7.9 H Absolute Lymphs (auto) 2.86 Total Counted Not Reportable Sodium 136 Potassium 4.7 Chloride 103 Carbon Dioxide 25.0 Anion Gap 8 BUN 21 H Creatinine 1.10 H Estim Creat Clear Calc 42.48 Est GFR (MDRD) Af Amer 67 Est GFR (MDRD) Non-Af 55 L BUN/Creatinine Ratio 19.1 Glucose 234 H Calcium 9.0 Troponin I < 0.015 Assessment/Plan All Active Problems (Last Reviewed 12/12/18 @ 22:45 by Alberto Muniz MD) Chest pain (Acute) Segmental and somatic dysfunction of pelvic region (Acute) Segmental and somatic dysfunction of lumbar region (Acute) COPD exacerbation (Acute) Microcalcification of left breast on mammogram (Acute) Hx of cardiac catheterization (Acute) Depression (Acute) Insomnia (Acute) History of hysterectomy (Resolved) Right lower lobe pneumonia (Acute) Left arm numbness (Acute) Unstable angina (Acute) Abnormal stress test (Acute) he patient is a 53 year old F with a significant history of diabetes mellitus; hyperlipidemia; tobacco abuse; hypothyroidism; COPD and with strong family history of heart disease who presented to the emergency department with chest pain. Chest pain Admit to a monitored bed on PCU CXR independently reviewed confirms no acute cardiopulmonary process. EKG independently reviewed confirms sinus rhythm ASA 81 mg p.o. daily ordered SL NTG 0.4 mg prn as needed for chest pain We will check lipid panel. High intensity statin continued Serial cardiac enzymes Stat EKG as needed for chest pain Lisinopril continued Chemical Stress test in the AM if the cardiac enzymes are negative. Tread mill stress test not ordered because of lightheadedness. Depression Zoloft and Paroxetine continued Diabetes Mellitus On presentation his blood glucose was not within goal. Since it is too early in her admission will hold metformin. Low-dose Lantus ordered. NPO for now . Correction scale insulin ordered. Hypertension At presentation her blood pressure was stable Lisinopril continued Trend blood pressure and adjust blood pressure medication. Recent upper respiratory infection Patient report that she recently finished azithromycin treatment Patient has 3 more days of prednisone; continued. Hypothyroidism Synthroid continued Hyperlipidemia Lipitor continued DVT prophylaxis Subcutaneous Lovenox Code Visit OBSV E&M: 86683 Initial observation care L3
[2018-12-12] MEDS: Aspirin 81 MG TAB.CHEW 324 MG PO (22:22)
--- NOTE | 2018-12-12 22:53 | EKG12_ITS ---
Test Reason : AM EKG Blood Pressure : / mmHG Vent. Rate : 079 BPM Atrial Rate : 079 BPM P-R Int : 190 ms QRS Dur : 084 ms QT Int : 386 ms P-R-T Axes : 065 066 055 degrees QTc Int : 442 ms Normal sinus rhythm Normal ECG Confirmed by ROSEY PEDROZA, ZOYA ([id number]), editor producer TIFFANIE CARDONA ([id number]) on 12/17/2018 10:57:00 AM Referred By: Alberto Muniz Confirmed By:ZOYA CURRIE MD
[2018-12-12] MEDS: Atorvastatin Calcium 40 MG Tablet PO (23:28)
[2018-12-13] VITALS (7 sets, daily range): BP systolic 100–131; BP diastolic 54–66; PULSE 73–84; RESP 14–16; TEMP 36.5–36.6; O2SAT 96–100
[2018-12-13 00:30] LABS: Bedside Glucose 145 mg/dL (70-110)
[2018-12-13 03:03] LABS: Hematocrit 33.6 % (37-47); Hemoglobin 11.3 g/dl (12.0-15.0); Mean Corp Hgb Conc 33.6 g/gl (32-36); Mean Corpuscular Hgb 32.5 pg (27.0-32.0); Mean Corpuscular Volume 96.6 fL (81-99); Mean Platelet Vol. 8.3 fl (6.2-12.0); Platelet Count 367 K/mm3 (150-450); RBC Distribution Width CV 12.5 % (11.6-14.6); RBC Distribution Width SD 42.2 fl (35.1-43.9); Red Blood Count 3.48 M/mm3 (4.2-5.4); White Blood Count 8.9 K/mm3 (4.4-11.0)
[2018-12-13 03:04] LABS: Scan Indicated on CBC? Y/N NO
[2018-12-13 03:07] LABS: International Normalized Ratio 0.9; Prothrombin Time (Protime)PT. 12.4 SECONDS (11.7-14.9)
[2018-12-13 03:08] LABS: Partial Thromboplast Time 25.9 Seconds (24.1-36.2)
[2018-12-13 04:01] LABS: Anion Gap 9 (5-15); BUN 19 mg/dL (7-18); BUN/Creat Ratio 19.7 RATIO (10-20); Calcium,Total 8.7 mg/dL (8.5-10.1); Chloride 104 mmol/L (98-107); Cholesterol 181 mg/dL (200); Creatinine, Serum 0.96 mg/dL (0.55-1.02); EST Glomerular Filtration Rate 64 mL/min (>60); Est Glom Filt Rate - Afr Amer 78 mL/min (>60); Estimated Creatinine Clearance 48.68 ml/min; Glucose 123 mg/dL (74-106); High Density Lipoprotein 84 mg/dL; Potassium 4.6 mmol/L (3.5-5.1); Sodium Level 138 mmol/L (136-145); Triglycerides 122 mg/dL; Very Low Density Lipoprotein 24 mg/dL (5-40)
[2018-12-13] MEDS: Aspirin E.C. 81 MG Tablet PO (05:31)
[2018-12-13] MEDS: Levothyroxine 25 MCG TABLET PO (05:31)
[2018-12-13] MEDS: Lisinopril 5 MG Tablet PO (05:31)
--- NOTE | 2018-12-13 05:55 | EKG12_ITS ---
Test Reason : CP ADMISSION Blood Pressure : / mmHG Vent. Rate : 078 BPM Atrial Rate : 078 BPM P-R Int : 198 ms QRS Dur : 084 ms QT Int : 364 ms P-R-T Axes : 068 063 060 degrees QTc Int : 414 ms Normal sinus rhythm Normal ECG Confirmed by ROSEY PEDROZA, ZOYA ([id number]), television news video editor TIFFANIE CARDONA ([id number]) on 12/17/2018 10:58:46 AM Referred By: Alberto Muniz Confirmed By:ZOYA CURRIE MD
[2018-12-13 06:26] LABS: Bedside Glucose 175 mg/dL (70-110)
[2018-12-13] MEDS: Sertraline 100 MG Tablet PO (10:01)
[2018-12-13] MEDS: Paroxetine 20 MG Tablet 40 MG PO (10:01)
--- NOTE | 2018-12-13 10:13 | STRESSREP ---
Stress Test Report Date: 12-13-18 Procedure: Pharmacologic stress nuclear imaging study Indications: Chest pain Consent: Per the patient Procedure: The patient underwent pharmacologic (Regadenoson) evaluation with a peak heart rate of 117 beats per minute (70 %predicted maximal heart rate) and a peak blood pressure of 130/50 mmHg. The baseline ECG demonstrated normal sinus rhythm. The peak pharmacologic ECG demonstrated no obvious ECG changes. There were no cardiac dysrhythmias pretest, during pharmacologic infusion, or recovery. The patient noted chest/back discomfort in recovery with spontaneous resolution. The examination was discontinued secondary to completion of protocol. Impression: 1. Pharmacologic (Regadenoson) evaluation 2. Peak pharmacologic ECG with no obvious ECG changes. 3. There were no cardiac dysrhythmias pretest, during pharmacologic infusion, or recovery. 4. Nuclear images pending Myocardial perfusion imaging study: Technique: The patient was injected with 11.8 millicuries of technetium 99m Cardiolite and subsequently rest SPECT Cardiolite nuclear imaging was obtained in the horizontal long, vertical long, and short axis views. The patient underwent pharmacologic (Regadenoson) evaluation with a peak heart rate of 117 beats per minute (70 % percent predicted maximal heart rate) and a peak blood pressure of 130/50 mmHg. The patient was injected with 35.4 millicuries of technetium 99m Cardiolite and subsequently stress SPECT Cardiolite nuclear imaging was obtained in the horizontal long, vertical long, and short axis views. A gated Cardiolite study at peak stress was obtained. Interpretation: Rest and stress SPECT Cardiolite nuclear imaging status post realignment, normalization, and attenuation correction demonstrate relative uniform tracer uptake and myocardial perfusion appearing within normal limits. There is end systolic thickening and brightening. The gated Cardiolite study demonstrates myocardial thickening and inward wall motion. The reported LVEF is 93 %. Impression: 1. Rest and stress SPECT Cardiolite nuclear imaging demonstrate relative uniform tracer uptake and myocardial perfusion appearing within normal limits. 2. The gated Cardiolite study reports an LVEF of 93 %. This note was generated with [employer] software. It may contain incorrect words, spelling, and punctuation that were not noted in checking the note before signing.
--- NOTE | 2018-12-13 10:37 | DCINST_ITS ---
- Discharge Diagnoses Current Active Problems: Current Active and Chronic Problems (Last Reviewed 12/12/18 @ 22:45 by Alberto Muniz MD) Chest pain (Acute) You will use the following diet at home:: Calorie/Carbohydrate Controlled (specify 1200, 1400, etc) - 1800 rodolfo., Cardiac Your food should be the consistency of: Regular Discharge Activity: Return to Normal Activity Weight Bearing Status: Full weight bearing Call your doctor if you observe: Fever of 101 or Higher, Shortness of breath, Dizziness, Fainting spells, Chest pain, Increased palpitations (irregular heartbeat), Uncontrolled pain Allergies/Adverse Reactions: Allergies prochlorperazine edisylate [From Compazine] Allergy (Verified 12/12/18 18:45) Rash prochlorperazine maleate [From Compazine] Allergy (Verified 12/12/18 18:45) Rash Medications to take at Discharge Atorvastatin Calcium [Lipitor] 40 mg PO QHS 08/11/14 Sertraline HCl [Zoloft] 100 mg PO DAILY 08/11/14 lisinopril 5 mg tablet 5 mg PO DAILY 10/24/17 metformin 500 mg tablet 1,000 mg PO BID 12/21/17 Levothyroxine [Synthroid] 25 mcg PO DAILY 05/09/18 Paroxetine HCl [Paxil] 40 mg PO DAILY 05/09/18 prednisone 10 mg tablet 10 mg PO QDAY #30 tab 06/18/18 Azithromycin [Zithromax] 250 mg PO DAILY #4 tab 11/30/18 Primary Care Physician: Bret You Chi, MD [Primary Care Provider] - Please follow up with your Primary Care Physician in: 2-3 weeks. Test Results: Test results from this visit will be discussed in further detail at your follow- up appointment, if applicable.
--- NOTE | 2018-12-13 10:38 | DCINST_ITS ---
- Discharge Diagnoses Current Active Problems: Current Active and Chronic Problems (Last Reviewed 12/12/18 @ 22:45 by Alberto Muniz MD) Chest pain (Acute) You will use the following diet at home:: Calorie/Carbohydrate Controlled (specify 1200, 1400, etc) - 1800 rodolfo, Cardiac Your food should be the consistency of: Regular Discharge Activity: Return to Normal Activity Weight Bearing Status: Full weight bearing Call your doctor if you observe: Fever of 101 or Higher, Shortness of breath, Dizziness, Fainting spells, Chest pain, Increased palpitations (irregular heartbeat), Uncontrolled pain Allergies/Adverse Reactions: Allergies prochlorperazine edisylate [From Compazine] Allergy (Verified 12/12/18 18:45) Rash prochlorperazine maleate [From Compazine] Allergy (Verified 12/12/18 18:45) Rash Medications to take at Discharge Atorvastatin Calcium [Lipitor] 40 mg PO QHS 08/11/14 Sertraline HCl [Zoloft] 100 mg PO DAILY 08/11/14 lisinopril 5 mg tablet 5 mg PO DAILY 10/24/17 metformin 500 mg tablet 1,000 mg PO BID 12/21/17 Levothyroxine [Synthroid] 25 mcg PO DAILY 05/09/18 Paroxetine HCl [Paxil] 40 mg PO DAILY 05/09/18 Primary Care Physician: Bret You Chi, MD [Primary Care Provider] - Please follow up with your Primary Care Physician in: 2-3 weeks. Test Results: Test results from this visit will be discussed in further detail at your follow- up appointment, if applicable.
--- NOTE | 2018-12-13 13:52 | PCM.DC.SUM ---
Discharge Date and Diagnosis Date of Admission: 12/12/18 Date of Discharge: 12/13/18 - Primary Discharge Diagnosis Chest pain, ACS ruled out, probably due to musculoskeletal pain. - Secondary Discharge Diagnosis Chronic Problems (Last Reviewed 12/12/18 @ 22:45 by Alberto Muniz MD) Mild intermittent acute asthmatic bronchitis (Chronic) Hypothyroidism (Chronic) Diabetes type 2, controlled (Chronic) History of tobacco use (Chronic) Diabetes type 2, uncontrolled (Chronic) Dyslipidemia (Chronic) COPD (chronic obstructive pulmonary disease) with emphysema (Chronic) Hospital Course and Treatment Imaging Results: 12/13/18 05:55 Nuclear Stress Test - Chemical [NM] AM (NON MEDS) Clinical Impression(s) from Imaging Studies Chest X-Ray 12/12/18 18:53 IMPRESSION: No acute cardiopulmonary pathology Electronically Signed: Oliverio Frederick MD at 19:20 EDT , Service support , Chest CTA 12/12/18 19:54 IMPRESSION: No acute abnormalities. . No evidence for pulmonary embolus aortic aneurysm periaortic leak or dissection. Electronically Signed: Oliverio Frederick MD at 21:01 EDT , Service support , Operations: None Procedures: EKG, Stress test Summary of Care Provided: Patient seen and examined on the day of discharge and appeared to be stable to be discharged home. She denies any more chest pain. She underwent nuclear stress test that was unremarkable without evidence of stress-induced myocardial ischemia. Her vital signs were stable. The patient is a 53 year old F admitted because of chest pain for evaluation. On admission, her EKG revealed normal sinus rhythm without evidence of acute ischemic changes. Her troponin was negative x3. Chest x-ray showed no acute findings. CTA chest also was done and showed no evidence of PE or dissection. She underwent nuclear stress test that was reported as negative without evidence of stress-induced myocardial ischemia. Acute coronary syndrome ruled out. Routine blood work was unremarkable. Her symptoms attributed to probable musculoskeletal pain. Patient denies symptoms of GERD or heartburn. Patient discharged home in a stable medical condition, discharged on the same medication that she has been taking without any changes, recommended to use Aleve or Tylenol as needed for chest pain and if the chest pain got worse or changes, recommended to come back to the emergency department, recommended to follow-up with PCP in 2-3 weeks. - Physical Exam General: Alert, Oriented x3, Cooperative, No apparent distress HEENT: Atraumatic, PERRLA, EOMI, Normocephalic Oral: Moist Mucosa, No Gingival or Mucosal Lesions/ Ulcerations Neck: Supple, No JVD, Negative Carotid Bruits, Trachea Midline, Thyroid Normal Size and Texture Lungs: Clear to auscultation, No rhonchi, No wheeze, No rales, Diminished Cardiovascular: Regular rate, Regular Rhythm, Normal S1, Normal S2, PMI Normal Abdomen: Bowel Sounds Present, Soft, Non Tender, Non-Distended, No Hepato-splenomegaly Extremities: No clubbing, No cyanosis, No edema Skin: No rashes, No breakdown Lymphatic: No Cervical, Supraclavicular, or Inguinal Adenopathy Neurological: Cranial nerves II-XII grossly intact, Neuro grossly intact Psych/Mental Status: Normal Affect, Appropriate Vital Signs Temp Pulse Resp BP Pulse Ox 97.9 F 81 14 100/54 L 100 12/13/18 09:59 12/13/18 11:00 12/13/18 09:59 12/13/18 09:59 12/13/18 09:59 Oxygen Flow Rate (L/min) 2 Oxygen Delivery Method Room Air Weight: 135 lb 2.294 oz Body Mass Index (BMI) 26.4 Finger Stick Blood Glucose 93 Intake and Output for Last 24 Hours 12/11/18 12/12/18 12/13/18 23:59 23:59 23:59 Intake Total 120 / 120 Balance 120 / 120 Laboratory Tests Past 24 Hrs 12/12/18 12/12/18 12/12/18 19:10 19:10 23:18 WBC 12.0 H RBC 3.69 L Hgb 12.0 Hct 35.5 L MCV 96.2 MCH 32.5 H MCHC 33.8 RDW 12.7 RDW Differential 44.5 H Plt Count 402 MPV 8.4 Immature Gran % (Auto) 0.300 Neut % (Auto) 65.4 Lymph % (Auto) 23.8 [place] % (Auto) 7.3 Eos % (Auto) 3.0 Baso % (Auto) 0.2 Absolute Neuts (auto) 7.9 H Absolute Lymphs (auto) 2.86 Total Counted Not Reportable PT INR APTT Sodium 136 Potassium 4.7 Chloride 103 Carbon Dioxide 25.0 Anion Gap 8 BUN 21 H Creatinine 1.10 H Estim Creat Clear Calc 42.48 Est GFR (MDRD) Af Amer 67 Est GFR (MDRD) Non-Af 55 L BUN/Creatinine Ratio 19.1 Glucose 234 H Calcium 9.0 Troponin I < 0.015 < 0.015 Triglycerides Cholesterol LDL Cholesterol VLDL Cholesterol HDL Cholesterol 12/13/18 12/13/18 12/13/18 02:33 02:33 02:33 WBC 8.9 RBC 3.48 L Hgb 11.3 L Hct 33.6 L MCV 96.6 MCH 32.5 H MCHC 33.6 RDW 12.5 RDW Differential 42.2 Plt Count 367 MPV 8.3 Immature Gran % (Auto) Neut % (Auto) Lymph % (Auto) [place] % (Auto) Eos % (Auto) Baso % (Auto) Absolute Neuts (auto) Absolute Lymphs (auto) Total Counted PT INR APTT Sodium 138 Potassium 4.6 Chloride 104 Carbon Dioxide 25.0 Anion Gap 9 BUN 19 H Creatinine 0.96 Estim Creat Clear Calc 48.68 Est GFR (MDRD) Af Amer 78 Est GFR (MDRD) Non-Af 64 BUN/Creatinine Ratio 19.7 Glucose 123 H Calcium 8.7 Troponin I < 0.015 Triglycerides 122 Cholesterol 181 LDL Cholesterol 73 VLDL Cholesterol 24 HDL Cholesterol 84 12/13/18 02:33 WBC RBC Hgb Hct MCV MCH MCHC RDW RDW Differential Plt Count MPV Immature Gran % (Auto) Neut % (Auto) Lymph % (Auto) [place] % (Auto) Eos % (Auto) Baso % (Auto) Absolute Neuts (auto) Absolute Lymphs (auto) Total Counted PT 12.4 INR 0.9 APTT 25.9 Sodium Potassium Chloride Carbon Dioxide Anion Gap BUN Creatinine Estim Creat Clear Calc Est GFR (MDRD) Af Amer Est GFR (MDRD) Non-Af BUN/Creatinine Ratio Glucose Calcium Troponin I Triglycerides Cholesterol LDL Cholesterol VLDL Cholesterol HDL Cholesterol POC Glucose 12/13/18 12/12/18 06:19 23:21 POC Glucose 175 H 145 H Discharge Activity: Return to Normal Activity Weight Bearing Status: Full weight bearing Call your doctor if you observe: Fever of 101 or Higher, Shortness of breath, Dizziness, Fainting spells, Chest pain, Increased palpitations (irregular heartbeat), Uncontrolled pain Home Medications: Medications to take at Discharge Atorvastatin Calcium [Lipitor] 40 mg PO QHS 08/11/14 Sertraline HCl [Zoloft] 100 mg PO DAILY 08/11/14 lisinopril 5 mg tablet 5 mg PO DAILY 10/24/17 metformin 500 mg tablet 1,000 mg PO BID 12/21/17 Levothyroxine [Synthroid] 25 mcg PO DAILY 05/09/18 Paroxetine HCl [Paxil] 40 mg PO DAILY 05/09/18 Primary Care Physician: Bret You Chi, MD [Primary Care Provider] - Please follow up with your Primary Care Physician in: 2-3 weeks. Disposition: Home Minutes spent on discharge:: 24 Patient Condition:: Stable Medical Necessity - Tobacco Use Smoking Status: Light Smoker (<10/day) Tobacco Use: Cigarettes Meaningful Use Info Meaningful Use Diagnoses (Choose all that apply): None applicable Code Visit OBSV E&M: 53977 Observation care discharge
== END 2018-12-13 10:37 | disposition home or self-care (01) ==
LOC: ED 19:53 → PCU 22:36
PROVIDERS: Admitting Provider Hospitalist; Emergency Provider Emergency Medicine; Family Provider Family Medicine Geriatric Medicine; PCP Family Medicine Geriatric Medicine; Referring Provider Hospitalist; Visit Provider Hospitalist
DX: R07.89 Other chest pain (principal); J44.9 Chronic obstructive pulmonary disease, unspecified; E11.65 Type 2 diabetes mellitus with hyperglycemia; E78.5 Hyperlipidemia, unspecified; E03.9 Hypothyroidism, unspecified; R20.0 Anesthesia of skin; E11.9 Type 2 diabetes mellitus without complications; I10 Essential (primary) hypertension; Z82.49 Family history of ischemic heart disease and other diseases of the circulatory system; Z79.899 Other long term (current) drug therapy; Z79.84 Long term (current) use of oral hypoglycemic drugs; F17.210 Nicotine dependence, cigarettes, uncomplicated
CPT/HCPCS: 36415; 71045; 71275; 78452; 80048; 80061; 82962; 84484; 85025; 85027; 85610; 85730; 93005; 93017; 97802; 99218; 99283; A9500; Q9967; A4216; G0378; J2785

== ENCOUNTER 2019-01-01 18:53 | Emergency (ER) | payer MEDICAID, SELFPAY ==
[2018-12-12 22:58] VITALS: BMI 26.4
[2019-01-01 18:54] VITALS: BP 114/65; PULSE 74; RESP 16; TEMP 36.3; BMI 26.9
--- NOTE | 2019-01-01 19:23 | ED.VISSUMM ---
- ER Visit Summary Date of Service: 01/01/19 Chief Complaint: Elevated blood sugar History of Present Illness: The patient is a 53 F presenting with elevated blood sugar. Patient states this has been ongoing for several days. Last she was seen at [facility] ED for similar complaints. She states she was treated with insulin in the ED and sent home. She states she has felt tired and has urinary frequency. She denies other complaints. She called Dr. You today and states she was advised to come to the ED for further evaluation. She has an appointment with Dr. You tomorrow. Physical Examination: Vitals are stable. Patient is afebrile. Alert no acute distress. HEENT exam is unremarkable. Neck is supple. Lungs are clear and equal bilaterally. Heart is regular rate and rhythm. Abdomen is soft nontender nondistended. Extremities are unremarkable. Skin is warm and dry. No focal neurologic deficit. Remainder of exam is unremarkable. Emergency Department Course and Treatment: Patient was given IV fluids. CBC unremarkable other than hemoglobin 11.6. Chemistries showed glucose 189, BUN 19, creatinine 1.37. Urinalysis unremarkable. Repeat BGT 150. EKG is sinus rate of 82 with no acute ischemic changes. Patient is feeling improved and is requesting to go home. Discussed with Dr. You and he will see her in the office tomorrow. Advised return to ED for worsening complaints. Disposition: Discharge home Impression: Hyperglycemia This note was generated with [employer] dictation software. It may contain incorrect words, spelling, and punctuation that were not noted in review of the chart prior to signing ED Disposition - Plan for ED Patient: Referrals: Bret You Chi, MD [Primary Care Provider] -
[2019-01-01] MEDS: 0.9% Normal Saline 1,000 ML 1000 ML IV (19:36)
[2019-01-01 19:40] LABS: Absolute Lymphocyte Count 2.61 X10^3/ul (0.83-4.51); Absolute Neutrophil Count 5.4 X10^3/uL (2.0-7.7); Basophil# 0.02 X10^3/uL; Basophil% 0.2 % (0-1); Eosinophil# 0.26 X10^3/uL; Eosinophils% 2.9 % (0-5); Hematocrit 34.1 % (37-47); Hemoglobin 11.6 g/dl (12.0-15.0); Lymphocyte # 2.61 X10^3/ul (4.0); Lymphocyte % 29.3 % (19-41); Mean Corpuscular Hgb 32.7 pg (27.0-32.0); Mean Corpuscular Volume 96.1 fL (81-99); Mean Platelet Vol. 8.1 fl (6.2-12.0); Monocyte# 0.64 X10^3/uL; Monocyte% 7.2 % (0-10); Neutrophil # 5.35 X10^3/uL (2.7-7.7); Neutrophil % 60.2 % (47-70); Platelet Count 334 K/mm3 (150-450); RBC Distribution Width CV 12.4 % (11.6-14.6); RBC Distribution Width SD 41.9 fl (35.1-43.9); Red Blood Count 3.55 M/mm3 (4.2-5.4); White Blood Count 8.9 K/mm3 (4.4-11.0)
[2019-01-01 19:47] LABS: POSITIVE COUNT NO; POSITIVE DIFFERENTIAL NO; POSITIVE MORPHOLOGY NO
[2019-01-01 19:50] LABS: Bacteria 0 SEEN /hpf (None Seen); Mucous, Urine 0 SEEN /hpf (<or=2+)
[2019-01-01 19:52] LABS: Color, Urine Yellow (Yellow); Glucose, Dipstick Normal (Normal); Ketone-Dipstick Negative (Negative); Leukocyte Esterase-Dipstick 25 /ul (Negative); Nitrite-Dipstick Negative (Negative); Occult Blood-Urine Negative /ul (Negative); Protein-Dipstick Negative (Negative); Urine Bilirubin Dipstick Negative (Negative); Urine Clarity Clear (Clear); Urine Urobilinogen Normal (Normal)
[2019-01-01 19:52] LABS: Anion Gap 4 (5-15); BUN 19 mg/dL (7-18); BUN/Creat Ratio 13.9 RATIO (10-20); Calcium,Total 8.9 mg/dL (8.5-10.1); Chloride 103 mmol/L (98-107); Creatinine, Serum 1.37 mg/dL (0.55-1.02); EST Glomerular Filtration Rate 43 mL/min (>60); Est Glom Filt Rate - Afr Amer 52 mL/min (>60); Estimated Creatinine Clearance 34.11 ml/min; Glucose 189 mg/dL (74-106); Potassium 4.1 mmol/L (3.5-5.1); Sodium Level 137 mmol/L (136-145)
[2019-01-01 19:57] LABS: Squamous Epithelial Cells - UA 0-5 SEEN /hpf (5-10)
[2019-01-01 19:58] LABS: White Blood Cells 0-5 SEEN /hpf (0-5)
[2019-01-01 19:59] LABS: Red Blood Cells-Urine 0-5 SEEN /hpf (0-5)
[2019-01-01] MEDS: 0.9% Normal Saline 1,000 ML 999 ML IV (20:34)
[2019-01-01 20:59] VITALS: BP 104/55; PULSE 74; RESP 16; O2SAT 99
--- NOTE | 2019-01-01 20:59 | EKG12_ITS ---
Test Reason : Blood Pressure : / mmHG Vent. Rate : 082 BPM Atrial Rate : 082 BPM P-R Int : 198 ms QRS Dur : 076 ms QT Int : 382 ms P-R-T Axes : 060 076 052 degrees QTc Int : 446 ms Normal sinus rhythm Normal ECG Confirmed by NORBERT FINCH ([id number]), development editor TIFFANIE CARDONA ([id number]) on 01/04/2019 11:02:02 AM Referred By: Confirmed By:NORBERT FINCH
[2019-01-01 21:10] LABS: Bedside Glucose 150 mg/dL (70-110)
--- NOTE | 2019-01-01 21:48 | ED.DEP ---
ED Disposition - Plan for ED Patient: Instructions: ED Hyperglycemia Diabetic Referrals: Bret You Chi, MD [Primary Care Provider] -
[2019-01-01 22:00] VITALS: BP 106/75; PULSE 73; RESP 16; O2SAT 98
== END 2019-01-01 22:00 | disposition home or self-care (01) ==
PROVIDERS: Emergency Provider Emergency Medicine; Family Provider Family Medicine Geriatric Medicine; PCP Family Medicine Geriatric Medicine
DX: E11.65 Type 2 diabetes mellitus with hyperglycemia (principal); Z72.0 Tobacco use; Z79.84 Long term (current) use of oral hypoglycemic drugs
CPT/HCPCS: 80048; 81001; 82962; 85025; 93005; 96360; 96361; 99283; J7030; A4216

== ENCOUNTER 2019-01-10 13:54 | Emergency (ER) | payer MEDICAID, SELFPAY ==
[2019-01-10 13:55] VITALS: BP 122/68; PULSE 98; RESP 16; TEMP 36.7; O2SAT 98; BMI 28.4
[2019-01-10] MEDS: 0.9% Normal Saline 1,000 ML 1000 ML IV (14:15)
[2019-01-10 14:39] LABS: Absolute Lymphocyte Count 1.56 X10^3/ul (0.83-4.51); Absolute Neutrophil Count 3.9 X10^3/uL (2.0-7.7); Basophil# 0.03 X10^3/uL; Basophil% 0.5 % (0-1); Eosinophil# 0.18 X10^3/uL; Hematocrit 32.7 % (37-47); Hemoglobin 11.1 g/dl (12.0-15.0); Lymphocyte # 1.56 X10^3/ul (4.0); Lymphocyte % 25.6 % (19-41); Mean Corp Hgb Conc 33.9 g/gl (32-36); Mean Corpuscular Hgb 32.3 pg (27.0-32.0); Mean Corpuscular Volume 95.1 fL (81-99); Mean Platelet Vol. 8.3 fl (6.2-12.0); Monocyte# 0.45 X10^3/uL; Monocyte% 7.4 % (0-10); Neutrophil # 3.86 X10^3/uL (2.7-7.7); Neutrophil % 63.3 % (47-70); Platelet Count 379 K/mm3 (150-450); RBC Distribution Width CV 12.6 % (11.6-14.6); RBC Distribution Width SD 42.4 fl (35.1-43.9); Red Blood Count 3.44 M/mm3 (4.2-5.4); White Blood Count 6.1 K/mm3 (4.4-11.0)
[2019-01-10 14:40] LABS: POSITIVE COUNT NO; POSITIVE DIFFERENTIAL NO; POSITIVE MORPHOLOGY NO
[2019-01-10 14:45] LABS: Anion Gap 7 (5-15); BUN 17 mg/dL (7-18); BUN/Creat Ratio 17.5 RATIO (10-20); Calcium,Total 8.7 mg/dL (8.5-10.1); Chloride 102 mmol/L (98-107); Creatinine, Serum 0.97 mg/dL (0.55-1.02); EST Glomerular Filtration Rate 64 mL/min (>60); Est Glom Filt Rate - Afr Amer 77 mL/min (>60); Estimated Creatinine Clearance 48.18 ml/min; Glucose 272 mg/dL (74-106); Sodium Level 134 mmol/L (136-145)
[2019-01-10 15:54] VITALS: BP 114/62; PULSE 92; RESP 16; O2SAT 97
--- NOTE | 2019-01-10 16:07 | ED.VISSUMM ---
- ER Visit Summary Date of Service: 01/10/19 Chief Complaint: Elevated blood sugar History of Present Illness: The patient is a 53 F known history of yki-xogjmdu-toisoikpd diabetes and hypertension. Currently on diabetic meds. Patient states over the last several weeks she has had labile blood sugars going high and at times low. She denies being ill. She denies any nausea, vomiting, diarrhea or dysuria. No fever. Physical Examination: Middle-aged female. No acute distress. Vital signs are stable afebrile. HEENT exam unremarkable. Lungs clear to auscultation bilaterally. Heart regular rhythm no murmur. Abdomen soft nontender. Patient is moving all 4 extremities. No edema. Neurologically she is awake alert with no focal motor deficits. Test Results: CBC White count is 6. H&H 11 and 33. Discharge electrolytes show sodium of 134. Gap of 7. Glucose of 272 normal creatinine. Emergency Department Course and Treatment: Treated with a liter normal saline. Treatment Plan: Discharge to home. Continue current meds. Follow-up with her primary care physician Dr. You for further adjustment of her blood sugar medications. Disposition: Discharge Impression: Acute hyperglycemia with a history of dkb-yklfbqc-yqzmhcrus diabetes This note was generated with [employer] dictation software. It may contain incorrect words, spelling, and punctuation that were not noted in review of the chart prior to signing ED Disposition - Plan for ED Patient: Referrals: Bret You Chi, MD [Primary Care Provider] -
--- NOTE | 2019-01-10 16:09 | ED.DEP ---
ED Disposition - Plan for ED Patient: Disposition: Home or Assisted Living Instructions: ED Hyperglycemia Diabetic Referrals: Bret You Chi, MD [Primary Care Provider] - As soon as possible Additional Instructions: Continue your current diabetic meds. Call and follow-up with Dr. You's office for further evaluation and adjustments of your medications.
[2019-01-10 16:29] VITALS: BP 109/76; PULSE 89; RESP 16; O2SAT 98
== END 2019-01-10 16:30 | disposition home or self-care (01) ==
PROVIDERS: Emergency Provider Emergency Medicine; Family Provider Family Medicine Geriatric Medicine; PCP Family Medicine Geriatric Medicine
DX: E11.65 Type 2 diabetes mellitus with hyperglycemia (principal); I10 Essential (primary) hypertension; Z79.84 Long term (current) use of oral hypoglycemic drugs; Z79.899 Other long term (current) drug therapy; Z72.0 Tobacco use
CPT/HCPCS: 36415; 80048; 85025; 96360; 99285; J7030; A4216

== ENCOUNTER → 2019-03-06 | Outpatient (CLI) | payer MEDICAID, SELFPAY ==
--- NOTE | 2019-03-06 09:20 | RAD_ITS ---
STUDY: X-RAY - LEFT KNEE REASON FOR EXAM: Female, 53 years old. Pain TECHNIQUE: 4 view(s) of the knee. COMPARISON: None. FINDINGS: Normal visualized distal femur. Normal visualized proximal tibia and fibula. Normal proximal tibiofibular articulation. Mildly narrowed medial femorotibial compartment. Normal lateral femorotibial compartment. Narrowed patellofemoral articulation. The soft tissue structures are unremarkable. RAD/Knee 4 or More Views IMPRESSION: Mild to moderate osteoarthritic changes. No evidence for acute fracture or other significant bony lesion Electronically Signed: Oliverio Frederick MD at 20:26 EDT , Service support ,
[2019-03-06 12:49] LABS: Absolute Lymphocyte Count 1.65 X10^3/ul (0.83-4.51); Absolute Neutrophil Count 3.4 X10^3/uL (2.0-7.7); Basophil# 0.04 X10^3/uL; Basophil% 0.7 % (0-1); Eosinophil# 0.25 X10^3/uL; Eosinophils% 4.4 % (0-5); Hematocrit 31.7 % (37-47); Hemoglobin 10.4 g/dl (12.0-15.0); Lymphocyte # 1.65 X10^3/ul (4.0); Lymphocyte % 28.9 % (19-41); Mean Corp Hgb Conc 32.8 g/gl (32-36); Mean Corpuscular Hgb 31.3 pg (27.0-32.0); Mean Corpuscular Volume 95.5 fL (81-99); Mean Platelet Vol. 8.3 fl (6.2-12.0); Monocyte# 0.39 X10^3/uL; Monocyte% 6.8 % (0-10); Neutrophil # 3.36 X10^3/uL (2.7-7.7); Platelet Count 375 K/mm3 (150-450); RBC Distribution Width CV 13.3 % (11.6-14.6); RBC Distribution Width SD 46.3 fl (35.1-43.9); Red Blood Count 3.32 M/mm3 (4.2-5.4); White Blood Count 5.7 K/mm3 (4.4-11.0)
[2019-03-06 12:54] LABS: POSITIVE COUNT NO; POSITIVE DIFFERENTIAL NO; POSITIVE MORPHOLOGY NO
[2019-03-06 13:09] LABS: ALB/GLOB Ratio 1.2 RATIO (0.9-2.4); AST(SGOT) 9 U/L (15-37); Alanine Aminotransfer ALT/SGPT 25 U/L (13-56); Albumin, Serum 3.6 g/dL (3.2-5.0); Alkaline Phosphatase 91 U/L (45-117); Anion Gap 9 (5-15); BUN 20 mg/dL (7-18); BUN/Creat Ratio 20.4 RATIO (10-20); Calcium,Total 8.9 mg/dL (8.5-10.1); Chloride 105 mmol/L (98-107); Creatinine, Serum 0.98 mg/dL (0.55-1.02); EST Glomerular Filtration Rate 63 mL/min (>60); Est Glom Filt Rate - Afr Amer 76 mL/min (>60); Globulin 3.1 g/dL (2.2-4.2); Glucose 126 mg/dL (74-106); Potassium 4.2 mmol/L (3.5-5.1); Protein, Total 6.7 g/dL (6.4-8.2); Sodium Level 139 mmol/L (136-145); Thyroid Stim Hormone (TSH) 2.08 uIU/mL (0.358-3.74)
== END | disposition home or self-care (01) ==
PROVIDERS: Family Provider Family Medicine Geriatric Medicine; PCP Family Medicine Geriatric Medicine; Referring Provider Family Medicine Geriatric Medicine; Visit Provider Family Medicine Geriatric Medicine
DX: E11.9 Type 2 diabetes mellitus without complications (principal); I10 Essential (primary) hypertension; M25.562 Pain in left knee
CPT/HCPCS: 36415; 73564; 80053; 84443; 85025

== ENCOUNTER 2019-03-29 17:12 | Observation (INO) | payer MEDICAID, SELFPAY ==
[2019-03-22 08:53] VITALS: BMI 28.4
[2019-03-29 17:20] VITALS: BP 127/65; PULSE 108; RESP 16; TEMP 36.9; O2SAT 97; BMI 29.8
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
--- NOTE | 2019-03-29 17:51 | EKG12_ITS ---
Test Reason : Blood Pressure : / mmHG Vent. Rate : 094 BPM Atrial Rate : 094 BPM P-R Int : 192 ms QRS Dur : 078 ms QT Int : 362 ms P-R-T Axes : 057 051 035 degrees QTc Int : 452 ms Normal sinus rhythm Normal ECG Confirmed by ROSEY PEDROZA, ZOYA ([id number]), videotape editor ZAHIRA BARRIENTOS ([id number]) on 04/01/2019 11:46:22 AM Referred By: Elio Hung Confirmed By:ZOYA CURRIE MD
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
[2019-03-29 18:07] LABS: Absolute Lymphocyte Count 1.93 X10^3/uL (0.83-4.51); Absolute Neutrophil Count 6.3 X10^3/uL (2.0-7.7); Basophil# 0.05 X10^3/uL; Basophil% 0.5 % (0-1); Eosinophils% 2.2 % (0-5); Hematocrit 31.7 % (37-47); Hemoglobin 10.8 g/dL (12.0-15.0); Lymphocyte # 1.93 X10^3/ul (4.0); Lymphocyte % 21.1 % (19-41); Mean Corp Hgb Conc 34.1 g/dL (32-36); Mean Corpuscular Hgb 32.4 pg (27.0-32.0); Mean Corpuscular Volume 95.2 fL (81-99); Monocyte% 6.6 % (0-10); NRBC Flagged by Analyzer 0 % (0-5); Neutrophil # 6.32 X10^3/uL (2.7-7.7); Neutrophil % 68.9 % (47-70); Platelet Count 336 K/mm3 (150-450); RBC Distribution Width CV 13.2 % (11.6-14.6); Red Blood Count 3.33 M/mm3 (4.2-5.4); White Blood Count 9.2 K/mm3 (4.4-11.0)
[2019-03-29 18:23] LABS: Anion Gap 8 (5-15); BUN 21 mg/dL (7-18); BUN/Creat Ratio 21.1 RATIO (10-20); Calcium,Total 9.1 mg/dL (8.5-10.1); Chloride 105 mmol/L (98-107); Creatinine, Serum 0.99 mg/dL (0.55-1.02); EST Glomerular Filtration Rate 62 mL/min (>60); Est Glom Filt Rate - Afr Amer 75 mL/min (>60); Glucose 74 mg/dL (74-106); Sodium Level 136 mmol/L (136-145)
[2019-03-29] MEDS: Acetaminophen 500 MG Tablet 1000 MG PO (18:24)
[2019-03-29 20:47] VITALS: BP 95/59; PULSE 81; RESP 17; O2SAT 97
[2019-03-29 21:48] VITALS: BMI 29.0
[2019-03-29 21:49] VITALS: BP 109/54; PULSE 78; RESP 18; TEMP 37.1; O2SAT 98
[2019-03-29 22:16] LABS: Bedside Glucose 100 mg/dL (70-110)
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
[2019-03-29 22:47] VITALS: PULSE 77
[2019-03-30] VITALS (12 sets, daily range): BP systolic 96–113; BP diastolic 44–70; PULSE 73–89; RESP 14–17; TEMP 36.6–36.8; O2SAT 95–98
[2019-03-30] MEDS: Enoxaparin 40 MG/0.4 ML Syringe SC ×2 (00:04→12:52)
[2019-03-30] MEDS: 0.9% Normal Saline 1,000 ML 100 ML IV ×2 (00:04→09:46)
[2019-03-30] MEDS: Atorvastatin Calcium 40 MG Tablet PO ×2 (00:04→21:19)
[2019-03-30] MEDS: DOXEPIN HCL 50 MG CAPSULE PO ×2 (00:04→21:20)
[2019-03-30 03:06] LABS: Absolute Neutrophil Count 2.9 X10^3/uL (2.0-7.7); Basophil# 0.04 X10^3/uL; Basophil% 0.7 % (0-1); Eosinophil# 0.21 X10^3/uL; Eosinophils% 3.5 % (0-5); Hematocrit 29.8 % (37-47); Lymphocyte % 39.5 % (19-41); Mean Corp Hgb Conc 33.6 g/dL (32-36); Mean Corpuscular Hgb 32.4 pg (27.0-32.0); Mean Corpuscular Volume 96.4 fL (81-99); Mean Platelet Vol. 8.2 fl (6.2-12.0); Monocyte# 0.55 X10^3/uL; Monocyte% 9.1 % (0-10); NRBC Flagged by Analyzer 0 % (0-5); Neutrophil # 2.86 X10^3/uL (2.7-7.7); Platelet Count 325 K/mm3 (150-450); RBC Distribution Width CV 13.2 % (11.6-14.6); RBC Distribution Width SD 47.7 fl (35.1-43.9); Red Blood Count 3.09 M/mm3 (4.2-5.4); White Blood Count 6.1 K/mm3 (4.4-11.0)
[2019-03-30 03:43] LABS: Anion Gap 5 (5-15); BUN 20 mg/dL (7-18); BUN/Creat Ratio 23.5 RATIO (10-20); Calcium,Total 8.3 mg/dL (8.5-10.1); Chloride 110 mmol/L (98-107); Creatinine, Serum 0.85 mg/dL (0.55-1.02); EST Glomerular Filtration Rate 74 mL/min (>60); Est Glom Filt Rate - Afr Amer 90 mL/min (>60); Estimated Creatinine Clearance 54.98 ml/min; Glucose 103 mg/dL (74-106); Magnesium 2.1 mg/dL (1.6-2.6); Potassium 3.9 mmol/L (3.5-5.1); Sodium Level 140 mmol/L (136-145); Thyroid Stim Hormone (TSH) 2.17 uIU/mL (0.358-3.74)
--- NOTE | 2019-03-30 05:55 | ECHOD_ITS ---
Reason For Study: Syncope Procedure This was a 2D Doppler, Color Flow transthoracic echocardiogram. The study was technically difficult. Exam performed portable in patient room. Left Ventricle Normal LV size. Left ventricular systolic function is normal. The estimated ejection fraction is 65 %. Transmitral doppler flow suggestive of impaired relaxation of left ventricle. No regional wall motion abnormalities noted. Right Ventricle Normal RV size. Normal systolic function. Atria Normal left atrium. Normal right atrium. No doppler evidence for ASD. Mitral Valve There is no mitral annular calcification. Normal mitral valve. Mild (1+) mitral valve insufficiency. Tricuspid Valve Normal tricuspid valve. Mild tricuspid valve insufficiency. Right ventricular systolic pressure estimated to be 31 mmHg. Aortic Valve Trisinus/trileaflet aortic valve. Normal aortic valve. Trivial aortic valve insufficiency. Pulmonic Valve The pulmonic valve is not well visualized. Trivial pulmonic valve insufficiency. Great Vessels Normal sized aortic root. Pericardium/Pleural No pericardial effusion. MMode/2D Measurements & Calculations LVIDd: 3.5 cm IVSd: 1.2 cm LA dimension: 3.4 cm LVIDs: 2.4 cm LVPWd: 0.95 cm FS: 30.7 % LAV(MOD-bp): 31.7 ml LA A4 area: 14.4 cm2 RA A4 area: 11.3 cm2 LAV(MOD-bp) Indexed: 19.3 ml/m2 LAV(MOD-sp2): 25.7 ml LAV(MOD-sp4): 34.5 ml Time Measurements MV dec time: 0.23 sec Doppler Measurements & Calculations MV E max wander: 74.4 cm/sec Lat Peak E' Wander: 13.1 cm/sec Med Peak E' Wander: 8.5 cm/sec MV A max wander: 91.8 cm/sec E/E' lat: 5.7 E/E' med: 8.7 MV E/A: 0.81 MV V2 max: 112.5 cm/sec MV P1/2t max wander: 100.4 cm/sec Ao V2 max: 118.5 cm/sec MV max P.1 mmHg MV P1/2t: 71.7 msec Ao max P.6 mmHg MV V2 mean: 66.5 cm/sec MV dec slope: 410.0 cm/sec2 MV mean P.1 mmHg MVA(P1/2t): 3.1 cm2 MV V2 VTI: 24.9 cm LV V1 max: 108.3 cm/sec PA V2 max: 82.8 cm/sec TR max wander: 266.4 cm/sec LV V1 max P.7 mmHg TR max P.4 mmHg Interpretation Summary The study was technically difficult. Left ventricular systolic function is normal. The estimated ejection fraction is 65 %. Mild (1+) mitral valve insufficiency. Mild tricuspid valve insufficiency. Trivial aortic valve insufficiency. Trivial pulmonic valve insufficiency. Right ventricular systolic pressure estimated to be 31 mmHg. Transmitral doppler flow suggestive of impaired relaxation of left ventricle Ordering Physician: Elio Hung Referring Physician: Elio Hung Performed By: Morgan Aparicio RCS
[2019-03-30] MEDS: Levothyroxine 25 MCG TABLET PO (06:04)
[2019-03-30 06:16] LABS: Bedside Glucose 122 mg/dL (70-110)
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
[2019-03-30 07:30] LABS: AST(SGOT) 14 U/L (15-37); Alanine Aminotransfer ALT/SGPT 23 U/L (13-56); Albumin, Serum 3.3 g/dL (3.2-5.0); Alkaline Phosphatase 101 U/L (45-117); Anion Gap 4 (5-15); BUN 21 mg/dL (7-18); BUN/Creat Ratio 23.7 RATIO (10-20); Bilirubin, Direct 0.09 mg/dL (0.00-0.30); CPK Total, Creatine Kinase 67 U/L (26-192); Calcium,Total 8.3 mg/dL (8.5-10.1); Chloride 111 mmol/L (98-107); Cholesterol 174 mg/dL (200); Creatinine, Serum 0.88 mg/dL (0.55-1.02); EST Glomerular Filtration Rate 71 mL/min (>60); Est Glom Filt Rate - Afr Amer 86 mL/min (>60); Globulin 2.7 g/dL (2.2-4.2); Glucose 98 mg/dL (74-106); High Density Lipoprotein 46 mg/dL; Potassium 4.1 mmol/L (3.5-5.1); Sodium Level 140 mmol/L (136-145); Triglycerides 169 mg/dL; Very Low Density Lipoprotein 34 mg/dL (5-40)
[2019-03-30 07:49] LABS: Hemoglobin A1c 6.5 % (4.2-6.3)
[2019-03-30 08:45] LABS: Amphetamine Urine VISTA NEGATIVE (<1000 ng/mL); Barbiturate Urine VISTA NEGATIVE (< 200 ng/mL); Benzodiazepine Urine VISTA NEGATIVE (< 200 ng/mL); Cocaine Urine VISTA NEGATIVE (< 300 ng/mL); Ecstacy Urine VISTA NEGATIVE (< 500 ng/mL); Methadone Urine VISTA NEGATIVE (< 300 ng/mL); PCP Urine VISTA NEGATIVE (< 25 ng/mL); THC Urine VISTA NEGATIVE (< 50 ng/mL); Vista UDS pH Range 5
[2019-03-30 11:05] LABS: Bedside Glucose 97 mg/dL (70-110)
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
[2019-03-30] MEDS: metFORMIN HCl 1,000 MG Tablet 1000 MG PO (16:34)
[2019-03-30 16:36] LABS: Bedside Glucose 81 mg/dL (70-110)
--- NOTE | 2019-03-30 18:23 | NURSING ---
Patient wanting to be discharged. Spoke with Dr. Carrillo regarding this and she wants pt to stay overnight to keep an eye on her blood sugar. Patient told this and explained about the option of leaving against medical advice. Offered pt a nicotine patch and patient refused. Patient is staying at this time
[2019-03-30 20:55] LABS: Bedside Glucose 99 mg/dL (70-110)
[2019-03-31] VITALS (7 sets, daily range): BP systolic 103–113; BP diastolic 51–61; PULSE 66–80; RESP 12–18; TEMP 36.7–36.8; O2SAT 95–98
[2019-03-31] MEDS: Levothyroxine 25 MCG TABLET PO (06:26)
[2019-03-31 06:36] LABS: Bedside Glucose 114 mg/dL (70-110)
[2019-03-31] MEDS: Lisinopril 5 MG Tablet PO (09:07)
[2019-03-31] MEDS: metFORMIN HCl 1,000 MG Tablet 1000 MG PO (09:07)
[2019-03-31] MEDS: Enoxaparin 40 MG/0.4 ML Syringe SC (09:07)
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
[2019-03-31 12:05] LABS: Bedside Glucose 108 mg/dL (70-110)
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
== END 2019-03-31 12:09 | disposition home or self-care (01) ==
LOC: ED 17:55 → PCU 03-30 06:39
PROVIDERS: Admitting Provider Internal Medicine; Emergency Provider Emergency Medicine; Family Provider Family Medicine Geriatric Medicine; PCP Family Medicine Geriatric Medicine; Referring Provider Internal Medicine; Visit Provider Internal Medicine
DX: E11.649 Type 2 diabetes mellitus with hypoglycemia without coma (principal); R55 Syncope and collapse; E11.65 Type 2 diabetes mellitus with hyperglycemia; M19.90 Unspecified osteoarthritis, unspecified site; M99.03 Segmental and somatic dysfunction of lumbar region; M99.05 Segmental and somatic dysfunction of pelvic region; J44.9 Chronic obstructive pulmonary disease, unspecified; E03.9 Hypothyroidism, unspecified; E78.5 Hyperlipidemia, unspecified; F32.9 Major depressive disorder, single episode, unspecified; D63.8 Anemia in other chronic diseases classified elsewhere; F41.9 Anxiety disorder, unspecified; F17.210 Nicotine dependence, cigarettes, uncomplicated; Z79.899 Other long term (current) drug therapy; Z79.84 Long term (current) use of oral hypoglycemic drugs
CPT/HCPCS: 36415; 70450; 71045; 72125; 80048; 80061; 80076; 80307; 82550; 82962; 83036; 83735; 84443; 84484; 85025; 93005; 93306; 96360; 96361; 96372; 97802; 99218; 99285; 99406; J7030; J7040; Q9957; A4216; G0378

== ENCOUNTER 2019-04-05 07:34 | Day surgery (SDC) | payer MEDICAID, SELFPAY ==
[2019-03-22 08:53] VITALS: BMI 28.4
--- NOTE | 2019-03-22 09:04 | HP_ITS ---
Intake Vital Signs 03/22/19 Body Mass Index (BMI) 28.4 03/22/19 Height 5 ft 03/22/19 Weight: 143 lb 03/22/19 Body Mass Index (BMI) 27.9 03/22/19 Blood Pressure 112/69 03/22/19 Blood Pressure Location Rt brachial 03/22/19 Respiratory Rate 14 03/22/19 Pulse Rate 92 03/22/19 Pulse Source Monitor 03/22/19 Temperature 97.2 F L 03/22/19 Temperature Source Oral 03/22/19 Pulse Ox 97 03/22/19 Oxygen Delivery Method room air Intake Visit Reasons: anemia - egd/cscope Chief Complaint: CP Women Nurse Required: No Is patient in pain?: No Allergies prochlorperazine edisylate [From Compazine] Allergy (Verified 03/22/19 08:49) Rash prochlorperazine maleate [From Compazine] Allergy (Verified 03/22/19 08:49) Rash Medications Atorvastatin Calcium [Lipitor] 40 mg PO QHS 08/11/14 [History Confirmed 03/22/19] lisinopril 5 mg tablet 5 mg PO DAILY 10/24/17 [History Confirmed 03/22/19] metformin 500 mg tablet 1,000 mg PO BID 12/21/17 [History Confirmed 03/22/19] Levothyroxine [Synthroid] 25 mcg PO DAILY 05/09/18 [History Confirmed 03/22/19] Glimepiride [Amaryl] 2 mg BID 01/10/19 [History Confirmed 03/22/19] doxepin 25 mg capsule 50 mg PO QHS cap 03/22/19 [History Confirmed 03/22/19] paroxetine 40 mg tablet 40 mg PO DAILY tab 03/22/19 [History Confirmed 03/22/19] [facility] Medical History (Updated 03/22/19 @ 09:02 by Odell Crystal MD) Constipation (Acute) Hemorrhoid (Acute) Anemia (Acute) Arthritis (Acute) Fibroadenoma of left breast (Acute) Calcification of left breast (Acute) Chest pain (Acute) Segmental and somatic dysfunction of pelvic region (Acute) Segmental and somatic dysfunction of lumbar region (Acute) COPD exacerbation (Acute) Microcalcification of left breast on mammogram (Acute) Mild intermittent acute asthmatic bronchitis (Chronic) Hypothyroidism (Chronic) Depression (Acute) Insomnia (Acute) Diabetes type 2, controlled (Chronic) History of tobacco use (Chronic) Diabetes type 2, uncontrolled (Chronic) Dyslipidemia (Chronic) COPD (chronic obstructive pulmonary disease) with emphysema (Chronic) Right lower lobe pneumonia (Acute) Left arm numbness (Acute) Unstable angina (Acute) Abnormal stress test (Acute) H/O: hysterectomy (Inactive) Surgical History (Updated 03/22/19 @ 08:48 by Maame Johnson) history stereotactic biopsy left breast (Acute ~12/22/17) Hx of cardiac catheterization (Acute) History of hysterectomy (Resolved) heart catheterization (Inactive) Family History Father Myocardial infarction CVA (cerebral vascular accident) Mother Seizures Heart disease Sister Seizures Social History (Updated 03/22/19 @ 09:04 by Odell Crystal MD) Smoking Status: Current every day smoker second hand exposure: No alcohol intake: never substance use type: does not use caffeine: Yes what type of physical activity do you participate in: walking frequency: daily HPI HPI HPI: FLORINDA LOPEZ, is a 53 F who presents to the office today for HPI HPI Surgical H&P: Yes HPI: FLORINDA LOPEZ, is a 53 F who presents to the office today for anemia. Patient notes that she has never been anemic in the past. She is not having any blood in her stool. She does admit to hemorrhoids. She does say she is having some right lower quadrant pain. She is not having any nausea or vomiting and she denies any GERD ROS General General: No weight change or fatigue Cardio Cardiovascular: Yes high blood pressure; no murmur, pacemaker, heart disease, atrial fibrillation, heart attack, heart stent, palpitations, shortness of breat with exertion or chest pain Psych Psychiatric: Yes depression; no anxiety Resp Respiratory: No shortness of breath, No sleep apnea, No cough, No COPD, No asthma, No emphysema, No wheezing Gastro Gastrointestinal: Yes abdominal pain, No nausea or vomiting, No diarrhea, Yes constipation, No blood in stool, No acid reflux, Yes hemorrhoids, No ulcers, No gallbladder problem, No black,tarry stools Ronaldo Hematologic: No blood thinners, Yes anemia Exam Const General: cooperative Orientation: alert, oriented x3 Resp Effort & Inspection: normal respiratory effort Auscultation: clear to auscultation bilaterally Cardio Rate: regular rate Rhythm: regular rhythm Heart Sounds: no murmurs GI Inspection: non-distended Palpation: soft, tender in the RLQ Assessment & Plan Problems 1. Iron deficiency anemia, unspecified iron deficiency anemia type D50.9 Plan Patient reports that she is having anemia with no gross blood in her stool. She denies any family history of colon cancer. She is not on any blood thinners. Recommend EGD and colonoscopy. Her last colonoscopy was over 10 years ago. I explained endoscopy in detail to the patient. I explained the risks including but not limited to stroke or heart attack with anesthesia, perforation of the GI tract, bleeding, infection. I explained that any of these could necessitate further emergency surgery. The patient understands and all questions were answered sufficiently. The patient wishes to proceed with procedure. Odell Crystal MD Pager: [facility] [address] [place] [address], [address] [place] [address] Office: Orders Orders: Colonoscopy Today D64.9 EGD Today D64.9 Plan Detail Goals Decrease pain and inflammation Increase ROM Coding Level of Care Code Off vis,new,level 3 Diagnoses Iron deficiency anemia, unspecified iron deficiency anemia type D50.9 ??Anemia type: iron deficiency ??Iron deficiency anemia type: unspecified iron deficiency 03/22/19 0904 <Electronically signed by Odell presley MD> Date _ Odell Crystal MD I have re-examined the patient. There are no clinical changes since date of exam.
[2019-03-29 21:48] VITALS: BMI 29.0
[2019-04-05 08:07] VITALS: BP 97/57; PULSE 92; RESP 18; TEMP 36.6; O2SAT 95; BMI 27.5
[2019-04-05 08:25] LABS: Bedside Glucose 107 mg/dL (70-110)
[2019-04-05 09:25] VITALS: BP 84/54; BP 97/57; PULSE 87; RESP 14; TEMP 36.1; O2SAT 98
--- NOTE | 2019-04-05 09:30 | OP.ENDO_ITS ---
04/05/2019 Bret You MD [address] [place] [address] Re : Upper GI endoscopy procedure for Gisel Bhatti Dear Dr. You This procedure was performed on Friday, April 05, 2019. My impressions and recommendations are as follows: Impressions : - Gastritis with hemorrhage. - The examination was otherwise normal. - No specimens collected. Recommendations : - Discharge patient to home. - Resume previous diet. - Continue present medications. My findings are described in the full procedure note, which is enclosed. If I can be of further assistance, please feel free to contact me at Doctor phone number(s): , Work: . Sincerely, Odell Crystal MD 04/05/2019 9:29:54 AM This report has been signed electronically.
[2019-04-05 09:31] VITALS: BP 87/54; BP 97/57; PULSE 78; RESP 14; O2SAT 98
--- NOTE | 2019-04-05 09:31 | OP.ENDO_ITS ---
04/05/2019 Bret You MD [address] [place] [address] Re : Colonoscopy procedure for Gisel Bhatti Dear Dr. You This procedure was performed on Friday, April 05, 2019. My impressions and recommendations are as follows: Impressions : - The entire examined colon is normal on direct and retroflexion views. - No specimens collected. Recommendations : - Discharge patient to home. - Resume previous diet. - Continue present medications. - Repeat colonoscopy in 10 years for screening purposes. My findings are described in the full procedure note, which is enclosed. If I can be of further assistance, please feel free to contact me at Doctor phone number(s): , Work: . Sincerely, Odell Crystal MD 04/05/2019 9:31:02 AM This report has been signed electronically.
[2019-04-05 09:35] VITALS: BP 86/56; BP 97/57; PULSE 94; RESP 16; O2SAT 99
[2019-04-05 09:40] VITALS: BP 88/56; BP 97/57; PULSE 80; RESP 16; TEMP 36.1; O2SAT 100
[2019-04-05 10:55] VITALS: BP 97/57
== END 2019-04-05 10:56 | disposition home or self-care (01) ==
LOC: EN 07:34 → AC 07:35
PROVIDERS: Family Provider Family Medicine Geriatric Medicine; PCP Family Medicine Geriatric Medicine; Referring Provider Family Medicine Geriatric Medicine; Visit Provider Surgery
PROC: 0DJD8ZZ Inspection of Lower Intestinal Tract, Via Natural or Artificial Opening Endoscopic (ICD-10-PCS; CPT 45378; principal; 2019-04-05 08:40)
DX: K29.71 Gastritis, unspecified, with bleeding (principal); D50.9 Iron deficiency anemia, unspecified; K59.00 Constipation, unspecified; K64.9 Unspecified hemorrhoids; E11.65 Type 2 diabetes mellitus with hyperglycemia; I10 Essential (primary) hypertension; E78.5 Hyperlipidemia, unspecified; E03.9 Hypothyroidism, unspecified; F32.9 Major depressive disorder, single episode, unspecified; F41.9 Anxiety disorder, unspecified; F17.200 Nicotine dependence, unspecified, uncomplicated; Z79.84 Long term (current) use of oral hypoglycemic drugs; Z79.899 Other long term (current) drug therapy; Z78.0 Asymptomatic menopausal state; Z88.8 Allergy status to other drugs, medicaments and biological substances
CPT/HCPCS: 43235; 45378; 82962; J7120; J2405

== ENCOUNTER → 2019-04-18 | Outpatient (CLI) | payer MEDICAID, SELFPAY ==
[2019-04-05 08:07] VITALS: BMI 27.5
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
== END | disposition home or self-care (01) ==
LOC: RAD 14:51
PROVIDERS: Family Provider Family Medicine Geriatric Medicine; PCP Family Medicine Geriatric Medicine; Referring Provider Family Medicine Geriatric Medicine; Visit Provider Family Medicine Geriatric Medicine
DX: M54.5 Low back pain (principal)
CPT/HCPCS: 72100

== ENCOUNTER → 2019-06-05 | Outpatient (CLI) | payer MEDICAID, SELFPAY ==
--- NOTE | 2019-06-05 10:04 | RAD_ITS ---
STUDY: X-RAY - LEFT KNEE REASON FOR EXAM: Female, 54 years old. Left knee pain for 2 weeks COMPARISON: None FINDINGS: [Studies of the left knee shows no evidence of fracture, dislocation, or bony destruction.] RAD/Knee 4 or More Views IMPRESSION: [Normal left knee.] Electronically Signed: Je Hernandez, at 13:53 EDT Tel , Service support ,
[2019-06-05 12:42] LABS: Absolute Lymphocyte Count 1.94 X10^3/uL (0.83-4.51); Absolute Neutrophil Count 3.3 X10^3/uL (2.0-7.7); Basophil# 0.02 X10^3/uL; Basophil% 0.3 % (0-1); Eosinophil# 0.18 X10^3/uL; Hematocrit 32.9 % (37-47); Hemoglobin 10.6 g/dL (12.0-15.0); Lymphocyte # 1.94 X10^3/ul (4.0); Lymphocyte % 32.5 % (19-41); Mean Corp Hgb Conc 32.2 g/dL (32-36); Mean Corpuscular Hgb 31.7 pg (27.0-32.0); Mean Corpuscular Volume 98.5 fL (81-99); Mean Platelet Vol. 8.4 fl (6.2-12.0); Monocyte# 0.49 X10^3/uL; Monocyte% 8.2 % (0-10); NRBC Flagged by Analyzer 0 % (0-5); Neutrophil # 3.32 X10^3/uL (2.7-7.7); Neutrophil % 55.7 % (47-70); Platelet Count 380 K/mm3 (150-450); RBC Distribution Width CV 13.9 % (11.6-14.6); RBC Distribution Width SD 50.4 fl (35.1-43.9); Red Blood Count 3.34 M/mm3 (4.2-5.4)
[2019-06-05 13:04] LABS: Vitamin D,25 Hydroxy 15.5 ng/mL (29.95-100.01)
[2019-06-05 13:13] LABS: ALB/GLOB Ratio 1.3 RATIO (0.9-2.4); AST(SGOT) 11 U/L (15-37); Alanine Aminotransfer ALT/SGPT 31 U/L (13-56); Albumin, Serum 3.8 g/dL (3.2-5.0); Alkaline Phosphatase 99 U/L (45-117); Anion Gap 6 (5-15); BUN 18 mg/dL (7-18); BUN/Creat Ratio 18.2 RATIO (10-20); Calcium,Total 9.3 mg/dL (8.5-10.1); Chloride 105 mmol/L (98-107); Creatinine, Serum 0.99 mg/dL (0.55-1.02); EST Glomerular Filtration Rate 62 mL/min (>60); Est Glom Filt Rate - Afr Amer 75 mL/min (>60); Glucose 116 mg/dL (74-106); Potassium 4.6 mmol/L (3.5-5.1); Protein, Total 6.8 g/dL (6.4-8.2); Sodium Level 137 mmol/L (136-145); Thyroid Stim Hormone (TSH) 1.77 uIU/mL (0.358-3.74)
== END | disposition home or self-care (01) ==
PROVIDERS: Family Provider Family Medicine Geriatric Medicine; PCP Family Medicine Geriatric Medicine; Referring Provider Family Medicine Geriatric Medicine; Visit Provider Family Medicine Geriatric Medicine
DX: I10 Essential (primary) hypertension (principal); E55.9 Vitamin D deficiency, unspecified; E11.9 Type 2 diabetes mellitus without complications; M25.562 Pain in left knee
CPT/HCPCS: 36415; 73564; 80053; 82306; 84443; 85025

== ENCOUNTER 2019-06-07 16:00 | Outpatient (RCR) | payer MEDICAID, SELFPAY ==
--- NOTE | 2019-05-27 10:21 | HP.PTEVAL ---
Patient's Visit Information FLORINDA LOPEZ is a 53 year old F referred to Physical Therapy by Deborah Magallanes MD with a diagnosis of BACK AND LEG PAIN. Date of Evaluation: 05/27/19 Physical Therapist: Danni Nicole PT, Cert MDT - Visit Plan Frequency: 2-3x /Week Duration: 4-6 Weeks Plan: AQUATIC THERAPY FOR PAIN RELEIF, POSTURE CORRECTION/STRENGTHENING, INSTRUCTION IN APPROPRIATE BODY MECHANICS AND ACTIVITY MODIFICATIONS. DLS STARTING WITH A NEUTRAL SPINE PROGRESSING ROM TOLERATED. JORGE LE ROM, STRETCHING AND STRENGTHENING. HEP INSTRUCTION. - Subjective Findings: Work/Leisure: UNEMPLOYEED. Disability: YES - SINCE AGE 17 FOR BACK ISSUES. Present symptoms: CHEIF C/O RIGHT LOW BACK PAIN - PATIENT REFERRS TO IT HER HIP AREA. PATIENT ALSO HAS JORGE LOW BACK PAIN. NO LE SX'S OTHER THAN RIGHT HIP. LEGS ARE NOT NUMB OR TINGLY. Present since: CHRONIC LOW BACK PAIN. RIGHT LOW BACK/HIP PAIN STARTED GETTING WORSE LAST MONTH. Pain Scale: WORST 9/10, LEAST 9/10. Currently: 9/10. Commenced as a result of: NO APPARENT REASON. Symptoms at onset: LOW BACK. Worse: SITTING, SLEEPING, STANDING. Better: NOTHING. Disturbed sleep: YES. Previous history/Previous treatment: HAS TRIED TYLONOL, IBUPROFEN THIS EPISODE. NO PHYSICAL THERAPY FOR BACK EVER. I'VE JUST BEEN PUTTING UP WITH THE PAIN. NO BACK SURGERY. NO CONNOR'S. TRIED CHIROPRACTOR - DR. CARLOS - ABOUT 3 MONTHS AGO - STATES SOME IT HELPED AND SOME IT DIDN'T HELP. IT JUST COMES RIGHT BACK. Coughing/sneezing/straining: NEGATIVE. Gait: I HAVE TO STOP BECAUSE IT HURTS. Difficulty initiating urinatin: NO. Accidents: NO. Unexplained weight loss: NO. Imaging: RECENT X-RAY OF LOW BACK ORDERED BY DR. WADSWORTH - PATIENT REPORTS IT SHOWED ARTHRITIS. [facility] EMR: IMPRESSION: Stable early degenerative changes of the lower lumbar spine. PMH: SEE BELOW - Objective Sitting/Standing Posture: POOR. Lordosis: NORMAL. Lateral shift: NO. Relevant shift: N/A. Active Correction of posture: WORSE. Other Observations: INDEP GAIT INTO PT WITH DECREASED CADANCE AND MILD TRUNK FLEXION. Motor deficit: JORGE LE'S GROSSLY 5/5 WITH MMT'ING EXCEPT HIPS 4/5. Sensory deficit: NO. ROM deficit: MILD JORGE GASTROC SOLEUS AND HS TIGHTNESS. TIGHT JORGE HIP FLEXORS. Reflexes: JORGE LE'S HYPER-REFLEXIC. Dural Signs: NEGATIVE LLE AND POSITIVE RIGHT LE. Lumbar mvmt loss: flex - MOD. ext - BRIANA. R SG - MOD. L SG - MIN. PATIENT C/O INCREASED JORGE LBP WITH LUMBAR ROM TESTING ALL PLANES. Core strength: POOR. Palpation: TENDERNESS WITH LIGHT PALPATION OF THE RIGHT LUMBAR REGION. OTHER: PATIENT RESPONDS WELL TO USE OF LUMBAR SUPPORT IN SITTING IN CLINIC TODAY. - Goals Goal 1:: DECREASE C/O RIGHT LOW BACK PAIN. Goal Time Frame: 4-6 Weeks Goal 2:: IMPROVE PERSONAL CARE, LIFTING, WALKING, SITTING, STANDING, SLEEP, SOCIAL LIFE, TRAVEL AND HOMEMAKING FUNCTION Goal Time Frame: 4-6 Weeks Goal 3:: INSTRUCT IN PROPHYLAXIS Goal Time Frame: 4-6 Weeks - Rehabilitation Potential Rehabilitation Potential: Fair - Anticipated Interventions Patient/Client Instruction: Educate patient on: Condition, Plan of Care, Risk Factors, Benefits of Fitness Program For the Purpose of:: To improve self management Therapeutic Exercise to Include: Strength training, Body mechanics, Postural training, Flexibilty training, In an aquatic setting, Dynamic Lumbar Stabilization, Scapular Strength/Stabilization For the Purpose of:: To decrease pain, To increase ROM, To improve muscle performance and motor function, To increase tolerance to activity/condition/position, To improve ability of physical actions for home/community/work/leisure Thank you for the opportunity to evaluate your patient. For Medicare and Medicare HMO plans, please review the plan of care and approve it. It will need to be FAXED BACK to us at [phone] for Medicare purposes. For Medicare only, by signing this I certify the plan of care. Please let me know if there are questions or concerns regarding this plan of care. Physician Signature: Date:
--- NOTE | 2019-08-23 16:14 | HP.PTDCNRP_ITS ---
HP - Discharge Summary (1) - Patient Information FLORINDA LOPEZ was seen in my office for initial evaluation on 05/27/19. The following Plan of Care was established for this patient: Initial Frequency: 2-3x /Week Initial Duration: 4-6 Weeks - Anticipated Interventions Patient/Client Instruction: Educate patient on: Condition, Plan of Care, Risk Factors, Benefits of Fitness Program For the Purpose of:: To improve self management Therapeutic Exercise to Include: Strength training, Body mechanics, Postural training, Flexibilty training, In an aquatic setting, Dynamic Lumbar Stabilization, Scapular Strength/Stabilization For the Purpose of:: To decrease pain, To increase ROM, To improve muscle performance and motor function, To increase tolerance to activity /condition/position, To improve ability of physical actions for home/community/work/leisure This patient was last seen in our office 06/07/19. Pertinent comments regarding their Physical therapy will appear below: This patient has not returned to Physical Therapy and is appropriate to return to MD for further follow-up as needed. At this point I will be discontinuing this patient from physical therapy. I would be happy to see this patient again in the future if found appropriate by the physician. Thank you! Danni Nicole, PT, Cert MDT
== END 2019-06-07 19:00 | disposition home or self-care (01) ==
LOC: PT 16:00
PROVIDERS: Family Provider Family Medicine Geriatric Medicine; PCP Family Medicine Geriatric Medicine; Referring Provider Anesthesiology Pain Medicine; Visit Provider Anesthesiology Pain Medicine
DX: M54.9 Dorsalgia, unspecified (principal); M79.606 Pain in leg, unspecified
CPT/HCPCS: 97113; 97162; 97530

== ENCOUNTER → 2019-06-20 | Outpatient (CLI) | payer MEDICAID, SELFPAY ==
--- NOTE | 2019-06-20 07:47 | BI_ITS ---
MAMMOGRAPHY - BILATERAL SCREENING REASON FOR EXAM: Female, 54 years old. Routine annual screening examination. PERTINENT HISTORY: Grandmother with breast cancer. Left stereotactic breast biopsy. TECHNIQUE: Digital bilateral breast elaina (3D mammographic acquisition) in the CC and MLO projections. 2-D mediolateral oblique (MLO) and craniocaudad (CC) views of both breasts were obtained. CAD: Full Field Digital Mammography with Computer Added Detection was performed. COMPARISON: Comparison is made with prior study dated December 06, 2017 and December 14, 2007. FINDINGS: Breast Composition: The breasts are heterogeneously dense, which may obscure small masses. There are no dominant masses or suspicious calcifications. Since prior study, the patient underwent stereotactic biopsy of the calcifications in the axial region of the left breast. The calcifications of the removed. No other significant abnormalities are identified. BI/SCREEN MAMM (CAD) W/ELAINA BILAT IMPRESSION: Stable bilateral screening mammogram. Yearly follow-up mammogram recommended. (A) ASSESSMENT CATEGORY: BIRADS Category 2: Benign. A letter regarding these results will be sent to the patient by the facility within 30 days. Approximately 10% of breast cancers are not detected by mammography. A normal mammogram should not delay biopsy of a clinically suspicious abnormality. [id number] Electronically Signed: Agus Ruelas, at 9:11 EDT , Service support ,
== END | disposition home or self-care (01) ==
LOC: OPBI 07:46
PROVIDERS: Family Provider Family Medicine Geriatric Medicine; PCP Family Medicine Geriatric Medicine; Referring Provider Family Medicine Geriatric Medicine; Visit Provider Family Medicine Geriatric Medicine
DX: Z12.31 Encounter for screening mammogram for malignant neoplasm of breast (principal)
CPT/HCPCS: 77063; 77067

== ENCOUNTER → 2019-06-24 | Outpatient (CLI) | payer MEDICAID, SELFPAY | END | disposition home or self-care (01) | LOC: PSN 13:53 | PROVIDERS: Family Provider Family Medicine Geriatric Medicine; PCP Family Medicine Geriatric Medicine; Referring Provider Family Medicine Geriatric Medicine; Visit Provider Family Medicine Geriatric Medicine | DX: R68.83 Chills (without fever) (principal) | CPT/HCPCS: 87633 ==

== ENCOUNTER 2019-07-07 13:47 | Emergency (ER) | payer MEDICAID, SELFPAY ==
[2019-07-07 13:48] VITALS: BP 114/66; PULSE 121; RESP 17; TEMP 37.1; O2SAT 96; BMI 30.2
--- NOTE | 2019-07-07 14:13 | RAD_ITS ---
STUDY: X-RAY CHEST REASON FOR EXAM: Female, 54 years old. Shortness of breath with cough TECHNIQUE: PA and lateral views of the chest. COMPARISON: 03/29/2019 FINDINGS: The lungs are clear and expanded. There is no demonstrated pleural abnormality. Normal size heart. Normal mediastinum and lauryn. Normal visualized pulmonary arteries. Normal visualized aortic arch and descending thoracic aorta. Normal visualized thoracic spine. Normal visualized ribs, clavicles, and shoulders. There is no demonstrated abnormality of the visualized soft tissue structures of the upper abdomen. RAD/Chest PA and Lateral IMPRESSION: Normal x-ray examination of the chest. Electronically Signed: Tian Paulino DO at 15:43 EST Tel , Service support ,
[2019-07-07 14:20] VITALS: PULSE 121; RESP 20; RESP 24; O2SAT 96
[2019-07-07] MEDS: Ipratropium/Albuterol Sulfate 3 ML AMPUL.NEB INHALATION (14:20)
[2019-07-07] MEDS: Albuterol 2.5 MG/3 ML VIAL.NEB. INHALATION (14:30)
[2019-07-07 14:32] VITALS: RESP 18
[2019-07-07 14:34] LABS: Absolute Lymphocyte Count 1.28 X10^3/uL (0.83-4.51); Absolute Neutrophil Count 5.7 X10^3/uL (2.0-7.7); Basophil# 0.02 X10^3/uL; Basophil% 0.2 % (0-1); Eosinophil# 0.21 X10^3/uL; Eosinophils% 2.6 % (0-5); Hematocrit 32.5 % (37-47); Hemoglobin 10.6 g/dL (12.0-15.0); Lymphocyte # 1.28 X10^3/ul (4.0); Lymphocyte % 15.9 % (19-41); Mean Corp Hgb Conc 32.6 g/dL (32-36); Mean Corpuscular Hgb 32.5 pg (27.0-32.0); Mean Corpuscular Volume 99.7 fL (81-99); Mean Platelet Vol. 8.3 fl (6.2-12.0); Monocyte# 0.79 X10^3/uL; Monocyte% 9.8 % (0-10); NRBC Flagged by Analyzer 0 % (0-5); Neutrophil # 5.71 X10^3/uL (2.7-7.7); Neutrophil % 70.8 % (47-70); Platelet Count 390 K/mm3 (150-450); RBC Distribution Width CV 14.8 % (11.6-14.6); RBC Distribution Width SD 53.8 fl (35.1-43.9); Red Blood Count 3.26 M/mm3 (4.2-5.4); White Blood Count 8.1 K/mm3 (4.4-11.0)
--- NOTE | 2019-07-07 14:34 | ED.VISSUMM ---
- ER Visit Summary Date of Service: 07/07/19 Chief Complaint: Shortness of breath History of Present Illness: The patient is a 54 F who presents the emergency department with shortness of breath. Patient states that this is been ongoing for over a week. She is been to her doctors twice was given a couple shots some antibiotics and a medicine for cough that begins with a c. She later produces a piece of paper that shows that she was on doxycycline was given a shot of Rocephin and Kenalog and was also on guaifenesin with codeine. She states she continues to have cough with some green sputum as well as some blood. She notes blood from her nose. States she has not been able to smoke for about 8 days. Subjective fever. She notes a history of COPD. Physical Examination: Afebrile vital signs stable noted heart rate 121 triage time Gen: Well-nourished well-developed Head: Normocephalic atraumatic Eyes: Perrl EOMI ENT: TMs clear no rhinorrhea moist mucous membranes Neck: Supple no lymphadenopathy no JVD nontender CVS: Regular rate tachycardic rhythm no murmurs normal S1-S2 Respiratory: No distress expiratory wheezes and rhonchi decreased breath sounds chest nontender Abdomen: Soft nontender nondistended normal bowel sounds no masses Back: Nontender Extremity: Nontender no edema Skin: Normal color no rash Neuro: alert orientated ?3 CN II-XII intact normal strength sensation reflexes gait cerebellar Psych: Normal affect normal mood Test Results: White count is normal. Chest x-ray shows no infiltrate. Emergency Department Course and Treatment: Patient received breathing treatments. Repeat lung examination shows improved aeration but continued expiratory wheezes. Patient will be prescribed a albuterol MDI, tapering dose of prednisone, and azithromycin. Patient was advised to follow-up with her doctor return if worsening or concerns Impression: 1. Bronchitis with bronchospasm This note was generated with [employer] dictation software. It may contain incorrect words, spelling, and punctuation that were not noted in review of the chart prior to signing ED Disposition - Plan for ED Patient: Disposition: Home or Assisted Living Instructions: BRONCHITIS with Wheezing (Adult) Prescriptions: Prednisone 10 mg PO DAILY #63 tab Prescription Printed Albuterol Inhaler [Ventolin Hfa] 2 puff INHALATION Q4H PRN PRN #1 inhaler PRN Reason: Wheezing Prescription Printed Azithromycin [Zithromax Z-Robbin] 250 mg PO UD #1 box Prescription Printed Referrals: Bret You Chi, MD [Primary Care Provider] - 1 Week
[2019-07-07 14:55] LABS: Anion Gap 8 (5-15); BUN 29 mg/dL (7-18); BUN/Creat Ratio 19.5 RATIO (10-20); Chloride 105 mmol/L (98-107); Creatinine, Serum 1.49 mg/dL (0.55-1.02); EST Glomerular Filtration Rate 39 mL/min (>60); Est Glom Filt Rate - Afr Amer 47 mL/min (>60); Glucose 378 mg/dL (74-106); Potassium 4.1 mmol/L (3.5-5.1); Sodium Level 138 mmol/L (136-145)
[2019-07-07 15:14] VITALS: BP 117/55; PULSE 109; RESP 20; TEMP 36.8; O2SAT 96
[2019-07-07 16:23] VITALS: BP 115/53; PULSE 106; RESP 18; O2SAT 96
== END 2019-07-07 16:24 | disposition home or self-care (01) ==
PROVIDERS: Emergency Provider Emergency Medicine; Family Provider Family Medicine Geriatric Medicine; PCP Family Medicine Geriatric Medicine
DX: J44.0 Chronic obstructive pulmonary disease with (acute) lower respiratory infection (principal); J20.9 Acute bronchitis, unspecified; K21.9 Gastro-esophageal reflux disease without esophagitis; I10 Essential (primary) hypertension; Z72.0 Tobacco use
CPT/HCPCS: 71046; 80048; 85025; 94640; 99251; 99284; G0463

== ENCOUNTER 2019-07-09 10:24 | Emergency (ER) | payer MEDICAID, SELFPAY ==
[2019-07-09 10:25] VITALS: BP 149/71; PULSE 120; RESP 16; TEMP 36.7; O2SAT 100; BMI 29.9
--- NOTE | 2019-07-09 10:40 | CT_ITS ---
STUDY: CT ABDOMEN AND PELVIS WITH CONTRAST REASON FOR EXAM: Female, 54 years old. Right lower quadrant pain. RADIATION DOSAGE (If Supplied By Facility): CTDIvol = ( 13.67 ) mGy, DLP = ( 823.42 ) mGycm TECHNIQUE: Transaxial images were obtained from the dome of the diaphragm to the symphysis pubis without oral contrast. IV 100mL Isovue-300 100 was administered. Sagittal and coronal images were reconstructed. Individualized dose optimization techniques were used for this CT. COMPARISON: None. FINDINGS: The visualized lung bases are unremarkable. The visualized portions of the heart are within normal limits. There is decreased attenuation of the liver consistent with steatosis. Normal gallbladder and extrahepatic biliary system. Normal spleen. Normal pancreas. Normal bilateral adrenal glands. Normal right kidney. Normal left kidney. There is a 3.7 cm x 2.6 cm well-defined fluid collection in the left paraspinal region posterior to the stomach. This may represent a fundus filled diverticulum. Normal small intestine. There are scattered colonic diverticula consistent with diverticulosis. The appendix is visualized and appears normal. There is scattered atherosclerotic calcification of the abdominal aorta, without a demonstrated aneurysm. Normal inferior vena cava. There is borderline retroperitoneal lymphadenopathy with enlarged nodes no greater than 10mm in the short axis diameter. Normal urinary bladder. Normal abdominal wall. Normal osseous structures. CT/Abdomen/Pelvis W IV Cont ONLY IMPRESSION: Findings suggestive of a fundus tail diverticulum. Electronically Signed: Agus Ruelas, at 13:24 EST , Service support ,
--- NOTE | 2019-07-09 10:42 | ED.VISSUMM ---
- ER Visit Summary Date of Service: 07/09/19 Chief Complaint: Abdominal pain History of Present Illness: The patient is a 54 F with right lower quadrant abdominal pain for 4 days. It was worse today. Severe. Worse with coughing and moving. She tried Tylenol and ibuprofen with no improvement. It does not radiate. She never had this before. Nothing seemed to bring it on. No associated symptoms like fever, urinary symptoms, nausea, vomiting, diarrhea, or constipation. Patient has a history of a hysterectomy remotely. Physical Examination: Afebrile and vital signs unremarkable except for heart rate of 120. The patient is tearful and appears uncomfortable. Skin appears normal. Heart regular. Lungs clear. Abdomen tender in the right lower quadrant. No guarding or rebound. Test Results: Labs, urinalysis, CT pending. Emergency Department Course and Treatment: Patient was treated with fluids, morphine, Zofran while awaiting results. We will recheck her heart rate. Hemoglobin 10.1, BUN 23, creatinine 1.20, glucose 229, hepatic panel and lipase normal. Urinalysis normal. CT showed a fundus tail diverticulum but no other acute findings. Appendix normal. Patient is not having symptoms from her fundus diverticulum. No bleeding, sign of malignancy, perforation, etc. No indication for urgent or emergent surgical consultation regarding this. Patient will be treated as an outpatient for right lower quadrant pain. Follow-up with primary care. Prescription for Bentyl. Use [id number] remedies as needed. Follow-up or return for any new or worsening issues. Treatment Plan: As above Disposition: Discharge Impression: 1. Right lower quadrant pain This note was generated with [employer] dictation software. It may contain incorrect words, spelling, and punctuation that were not noted in review of the chart prior to signing ED Disposition - Plan for ED Patient: Instructions: ABDOMINAL PAIN, Unknown Cause, (Female) Prescriptions: Dicyclomine HCl [Bentyl] 20 mg PO TIDAC #20 cap Prescription Printed Referrals: Bret You Chi, MD [Primary Care Provider] -
[2019-07-09 10:58] LABS: Absolute Lymphocyte Count 0.82 X10^3/uL (0.83-4.51); Absolute Neutrophil Count 5.7 X10^3/uL (2.0-7.7); Basophil# 0.03 X10^3/uL; Basophil% 0.4 % (0-1); Eosinophil# 0.16 X10^3/uL; Eosinophils% 2.2 % (0-5); Hematocrit 30.9 % (37-47); Hemoglobin 10.1 g/dL (12.0-15.0); Lymphocyte # 0.82 X10^3/ul (4.0); Lymphocyte % 11.1 % (19-41); Mean Corp Hgb Conc 32.7 g/dL (32-36); Mean Corpuscular Hgb 32.7 pg (27.0-32.0); Monocyte# 0.53 X10^3/uL; Monocyte% 7.2 % (0-10); NRBC Flagged by Analyzer 0 % (0-5); Neutrophil # 5.69 X10^3/uL (2.7-7.7); Neutrophil % 77.2 % (47-70); Platelet Count 321 K/mm3 (150-450); RBC Distribution Width CV 15.1 % (11.6-14.6); RBC Distribution Width SD 55.2 fl (35.1-43.9); Red Blood Count 3.09 M/mm3 (4.2-5.4); White Blood Count 7.4 K/mm3 (4.4-11.0)
[2019-07-09] MEDS: 0.9% Normal Saline 1,000 ML 1000 ML IV (11:10)
[2019-07-09] MEDS: Ondansetron 4 MG/2 ML Vial IV (11:10)
[2019-07-09] MEDS: Morphine 4 MG/ML Syringe IV ×2 (11:11→12:31)
[2019-07-09 11:18] LABS: AST(SGOT) 7 U/L (15-37); Alanine Aminotransfer ALT/SGPT 24 U/L (13-56); Albumin, Serum 3.2 g/dL (3.2-5.0); Alkaline Phosphatase 70 U/L (45-117); Anion Gap 8 (5-15); BUN 23 mg/dL (7-18); BUN/Creat Ratio 19.2 RATIO (10-20); Calcium,Total 8.9 mg/dL (8.5-10.1); Chloride 105 mmol/L (98-107); EST Glomerular Filtration Rate 50 mL/min (>60); Est Glom Filt Rate - Afr Amer 60 mL/min (>60); Globulin 3.3 g/dL (2.2-4.2); Glucose 229 mg/dL (74-106); Lipase 111 U/L (73-393); Potassium 4.5 mmol/L (3.5-5.1); Protein, Total 6.5 g/dL (6.4-8.2); Sodium Level 137 mmol/L (136-145)
[2019-07-09 11:23] LABS: Bacteria 0 SEEN /hpf (None Seen); Mucous, Urine 0 SEEN /hpf (<or=2+); Red Blood Cells-Urine 0 SEEN /hpf (0-5)
[2019-07-09 11:24] LABS: Color, Urine Yellow (Yellow); Glucose, Dipstick 250 mg/dl (Normal); Ketone-Dipstick Negative (Negative); Leukocyte Esterase-Dipstick 25 /ul (Negative); Nitrite-Dipstick Negative (Negative); Occult Blood-Urine Negative /ul (Negative); Protein-Dipstick 15 mg/dl (Negative); Specific Gravity, Urine 1.015 (1.002-1.030); Urine Bilirubin Dipstick Negative (Negative); Urine Clarity Clear (Clear); Urine Urobilinogen Normal (Normal)
[2019-07-09 11:32] LABS: Squamous Epithelial Cells - UA 0-5 SEEN /hpf (5-10); White Blood Cells 0-5 SEEN /hpf (0-5); Yeast-Urine RARE /hpf (None Seen)
[2019-07-09 12:24] VITALS: RESP 18
--- NOTE | 2019-07-09 14:21 | ED.DEP ---
ED Disposition - Plan for ED Patient: Instructions: ABDOMINAL PAIN, Unknown Cause, (Female) Prescriptions: Dicyclomine HCl [Bentyl] 20 mg PO TIDAC #20 cap Prescription Printed Referrals: Bret You Chi, MD [Primary Care Provider] -
[2019-07-09 14:33] VITALS: BP 116/60; PULSE 63; RESP 16; O2SAT 98
== END 2019-07-09 14:34 | disposition home or self-care (01) ==
LOC: ED 10:53
PROVIDERS: Emergency Provider Emergency Medicine; Family Provider Family Medicine Geriatric Medicine; PCP Family Medicine Geriatric Medicine
DX: R10.31 Right lower quadrant pain (principal); E11.9 Type 2 diabetes mellitus without complications; I10 Essential (primary) hypertension; E78.00 Pure hypercholesterolemia, unspecified; Z72.0 Tobacco use; Z79.84 Long term (current) use of oral hypoglycemic drugs; Z79.899 Other long term (current) drug therapy
CPT/HCPCS: 74177; 80053; 81001; 83690; 85025; 96361; 96374; 96375; 99283; J7030; Q9967; A4216; J2405

== ENCOUNTER 2019-08-22 17:10 | Emergency (ER) | payer MEDICAID, SELFPAY ==
[2019-08-22 17:11] VITALS: BP 154/91; PULSE 108; RESP 17; TEMP 36.9; O2SAT 96; BMI 29.9
--- NOTE | 2019-08-22 17:34 | ED.VIS.GEN ---
History of Present Illness Chief Complaint: Headache Detail of Chief Complaint: URI symptoms, nausea, vomiting Informant: Patient Onset: Weeks Context: Gradual Onset Current Severity: Moderate Maximum Severity: Moderate Narrative: Patient presents with URI symptoms for the past 4 weeks. She states she started out with bronchitis and was seen Dr. You for antibiotic shots. She then developed an inner ear and sinus infection. She states that is now transitioned into cough and congestion. She believes she is currently on antibiotic but does not know which one. Today she developed nausea and vomiting as well. She does not know she has had a fever. - Past Medical History (1) Arthritis Status: Chronic (2) COPD (chronic obstructive pulmonary disease) with emphysema Status: Chronic (3) Depression Status: Chronic (4) Diabetes type 2, controlled Status: Chronic (5) Dyslipidemia Status: Chronic (6) Hypothyroidism Status: Chronic Past Medical History - Allergies and Home Meds Allergies/Adverse Reactions: Allergies prochlorperazine edisylate [From Compazine] Allergy (Verified 07/09/19 10:25) Rash prochlorperazine maleate [From Compazine] Allergy (Verified 07/09/19 10:25) Rash Primary Care Physician: Bret You Chi, MD [Primary Care Provider] - Prior records reviewed: Yes Surgical History: hysterectomy Lives: Spouse/ Significant Other Smoking Status: Current every day smoker - Family History Maternal Family History: Family History (Last Reviewed 03/22/19 @ 08:45 by Maame Johnson) Father Myocardial infarction CVA (cerebral vascular accident) Mother Seizures Heart disease Sister Seizures Family History: Reports: Heart Disease - s/p stents Paternal Family History: Family History (Last Reviewed 03/22/19 @ 08:45 by Maame Johnson) Father Myocardial infarction CVA (cerebral vascular accident) Mother Seizures Heart disease Sister Seizures Family History: Reports: - - Denies history of lung cancer. Review of Systems General: Denies: Chills, Fever Eyes: Denies: Visual changes - bilaterally ENT: Reports: Rhinorrhea. Denies: Bilateral ear pain Cardiovascular: Denies: Chest pain Respiratory: Reports: Dyspnea, Cough, Sputum - Clear sputum Gastrointestinal: Reports: Nausea, Vomiting. Denies: Diarrhea Genitourinary: Denies: Dysuria Musculoskeletal: Reports: Myalgias Skin: Denies: Rash Neurological: Denies: Headache, Weakness Endocrine: Denies: Polyuria Hematologic: Denies: Easy bruising Allergy: Denies: Uticaria Physical Exam Vital Signs/Narrative: Vital Signs Temp Pulse Resp BP Pulse Ox 08/22/19 17:11 98.4 F 108 H 17 154/91 H 96 Inital Vital Signs reviewed: Yes General: Well nourished, Well developed Head: Normocephalic ENT: Moist mucous membranes Neck: Supple Cardiovascular: Regular rate, Regular rhythm Respiratory: No distress, CTA bilaterally Abdomen: Soft, Nontender, Hypoactive bowel sounds Extremities: Nontender Skin: Normal color, No rash Neurological: Alert, Oriented x3 Psychological: Normal affect ED Disposition - Plan for ED Patient: Disposition: Home or Assisted Living Diagnosis: Pneumonia Instructions: PNEUMONIA (Adult) Prescriptions: Levofloxacin [Levaquin] 750 mg PO DAILY #4 tab Transmission Status: Pending to [id number] Referrals: Bret You Chi, MD [Primary Care Provider] - 3-5 Days
[2019-08-22] MEDS: Ketorolac 30 MG/ML Syringe IV (18:00)
[2019-08-22] MEDS: 0.9% Normal Saline 1,000 ML 1000 ML IV (18:00)
[2019-08-22] MEDS: Ondansetron 4 MG/2 ML Vial IV (18:00)
--- NOTE | 2019-08-22 18:10 | RAD_ITS ---
STUDY: X-RAY CHEST REASON FOR EXAM: Female, 54 years old. PT COMPLAINS OF HEADACHE AND NAUSEA/VOMITING X4 WEEKS. TECHNIQUE: PA and lateral views of the chest. COMPARISON: July 07, 2019. FINDINGS: There is a new left perihilar patchy opacity. Normal size heart. Normal mediastinum and lauryn. Normal visualized pulmonary arteries. Normal visualized aortic arch and descending thoracic aorta. Normal visualized thoracic spine. Normal visualized ribs, clavicles, and shoulders. There is no demonstrated abnormality of the visualized soft tissue structures of the upper abdomen. RAD/Chest PA and Lateral IMPRESSION: New left perihilar patchy opacity concerning for underlying pneumonia. Electronically Signed: Ellie Goncalves MD at 18:43 EST Tel , Service support ,
[2019-08-22 18:16] LABS: Absolute Lymphocyte Count 0.78 X10^3/uL (0.83-4.51); Absolute Neutrophil Count 5.3 X10^3/uL (2.0-7.7); Basophil# 0.02 X10^3/uL; Basophil% 0.3 % (0-1); Eosinophil# 0.15 X10^3/uL; Eosinophils% 2.2 % (0-5); Hematocrit 29.5 % (37-47); Hemoglobin 9.7 g/dL (12.0-15.0); Lymphocyte # 0.78 X10^3/ul (4.0); Lymphocyte % 11.3 % (19-41); Mean Corp Hgb Conc 32.9 g/dL (32-36); Mean Corpuscular Hgb 33.2 pg (27.0-32.0); Mean Platelet Vol. 8.4 fl (6.2-12.0); Monocyte# 0.61 X10^3/uL; Monocyte% 8.8 % (0-10); NRBC Flagged by Analyzer 0 % (0-5); Neutrophil # 5.29 X10^3/uL (2.7-7.7); Neutrophil % 76.7 % (47-70); Platelet Count 309 K/mm3 (150-450); RBC Distribution Width SD 56.2 fl (35.1-43.9); Red Blood Count 2.92 M/mm3 (4.2-5.4); White Blood Count 6.9 K/mm3 (4.4-11.0)
[2019-08-22 18:31] LABS: AST(SGOT) 12 U/L (15-37); Alanine Aminotransfer ALT/SGPT 22 U/L (13-56); Albumin, Serum 3.4 g/dL (3.2-5.0); Alkaline Phosphatase 73 U/L (45-117); Anion Gap 9 (5-15); BUN 24 mg/dL (7-18); BUN/Creat Ratio 17.8 RATIO (10-20); Bilirubin, Direct 0.12 mg/dL (0.00-0.30); Calcium,Total 9.1 mg/dL (8.5-10.1); Chloride 107 mmol/L (98-107); Creatinine, Serum 1.35 mg/dL (0.55-1.02); EST Glomerular Filtration Rate 43 mL/min (>60); Est Glom Filt Rate - Afr Amer 53 mL/min (>60); Estimated Creatinine Clearance 34.22 ml/min; Globulin 3.4 g/dL (2.2-4.2); Glucose 90 mg/dL (74-106); Lipase 144 U/L (73-393); Potassium 4.3 mmol/L (3.5-5.1); Protein, Total 6.8 g/dL (6.4-8.2); Sodium Level 138 mmol/L (136-145)
--- NOTE | 2019-08-22 19:01 | EKG12_ITS ---
Test Reason : DYSRHYTHMIA Blood Pressure : / mmHG Vent. Rate : 090 BPM Atrial Rate : 090 BPM P-R Int : 182 ms QRS Dur : 086 ms QT Int : 348 ms P-R-T Axes : 067 078 048 degrees QTc Int : 425 ms Normal sinus rhythm Normal ECG Confirmed by NORBERT FINCH ([id number]), photography editor ZAHIRA BARRIENTOS ([id number]) on 08/27/2019 2:58:08 PM Referred By: ARYAN Confirmed By:NORBERT FNICH
[2019-08-22] MEDS: levoFLOXacin 750 MG Tablet PO (19:34)
[2019-08-22 19:36] VITALS: BP 134/71; PULSE 74; RESP 17; O2SAT 96
== END 2019-08-22 19:37 | disposition home or self-care (01) ==
PROVIDERS: Emergency Provider Emergency Medicine; Family Provider Family Medicine Geriatric Medicine; PCP Family Medicine Geriatric Medicine
DX: J44.0 Chronic obstructive pulmonary disease with (acute) lower respiratory infection (principal); J18.9 Pneumonia, unspecified organism; M19.90 Unspecified osteoarthritis, unspecified site; F32.9 Major depressive disorder, single episode, unspecified; E11.9 Type 2 diabetes mellitus without complications; E78.5 Hyperlipidemia, unspecified; E03.9 Hypothyroidism, unspecified; Z79.84 Long term (current) use of oral hypoglycemic drugs; Z79.899 Other long term (current) drug therapy; F17.200 Nicotine dependence, unspecified, uncomplicated
CPT/HCPCS: 71046; 80048; 80076; 83690; 85025; 93005; 96361; 96374; 96375; 99284; J7030; A4216; J2405

== ENCOUNTER → 2019-09-04 07:26 | Outpatient (CLI) | payer MEDICAID, SELFPAY ==
[2019-08-22 17:11] VITALS: BMI 29.9
--- NOTE | 2019-09-04 07:50 | RAD_ITS ---
STUDY: X-RAY - ESOPHAGUS (BARIUM SWALLOW) WITH FLUOROSCOPY REASON FOR EXAM: Female, 54 years old. DYSPHAGIA; -- SOLIDS and amp; SOME TABLETS FEEL LIKE THEY ARE STUCK PART WAY DOWN WHEN SWALLOWING -- INTERMITTENT HEARTBURN TECHNIQUE: 14 view(s) of the esophagus were obtained following swallowing of barium. FLUOROSCOPY TIME (if supplied): (0:30) minutes/seconds COMPARISON: None. FINDINGS: There is no demonstrated esophageal foreign body. There is no demonstrated stricture or mucosal abnormality. Normal gastroesophageal junction, without a demonstrated hiatal hernia. The patient ingested a 12 mm tablet of barium without any difficulty. Normal visualized aortic arch and descending thoracic aorta. Normal visualized pulmonary parenchyma. Normal visualized osseous structures of the thorax. RAD/Esophagus Only IMPRESSION: Normal plain film x-ray examination (barium swallow) of the esophagus. Electronically Signed: Agus Ruelas, at 8:33 EST , Service support ,
== END ==
PROVIDERS: Family Provider Family Medicine Geriatric Medicine; PCP Family Medicine Geriatric Medicine; Referring Provider Family Medicine Geriatric Medicine; Visit Provider Family Medicine Geriatric Medicine
DX: R13.10 Dysphagia, unspecified (principal)
CPT/HCPCS: 74220

== ENCOUNTER 2019-09-27 15:04 | Emergency (ER) | payer MEDICAID, SELFPAY ==
[2019-09-27 15:05] VITALS: BP 125/68; PULSE 120; RESP 17; TEMP 36.1; O2SAT 98; BMI 29.9
--- NOTE | 2019-09-27 15:17 | ED.DCSUM_ITS ---
- ER Visit Summary Date of Service: 09/27/19 Chief Complaint: [Rash and itching] History of Present Illness: The patient is a 54 F [presents to the emergency department with a rash that started on the dorsum of her right wrist over a month ago. Patient was initially seen by her primary care physician and treated with Levaquin. Patient states that she continues to itch and now the rash is on the dorsum of both arms including her right upper arm. She denies any new soaps or detergents. She denies any new medications. She denies fever or recent illness. Physical Examination: [HEENT-PERRLA, EOMI. Cranial nerves II through XII grossly intact. TMs clear. Mucous membranes moist. No adenopathy. Cardiovascular-regular rate and rhythm without murmur or ectopy Lungs-clear to auscultation, chest wall stable without crepitus or subcu emphysema Abdomen-normoactive bowel sounds, soft, nontender, no rebound or rigidity, no peritoneal signs. Skin exam-patient has a patchy slightly erythematous and ecchymotic looking rash involving the dorsum of the right and left forearms as well as right upper arm. Rash almost appears somewhat vasculitic. No petechiae noted. No vesicles noted. Extremities-intact ?4, normal range of motion, normal pulses, atraumatic] Test Results: [CBC with differential obtained showed a white count of 6.9, hemoglobin 9.5, hematocrit 29, platelets 388. Sed rate was 16. Chemistries unremarkable. LFTs were normal.] Emergency Department Course and Treatment: [He was given a dose of prednisone 40 mg p.o. as well as Atarax 10 mg p.o.] Treatment Plan: [We will be treated with prednisone and Atarax and referred to dermatology for follow-up within next 3 to 5 days.] Disposition: [Discharged home in stable condition] Impression: [Dermatitis-etiology uncertain] This note was generated with [employer] software. It may contain incorrect words, spelling, and punctuation that were not noted in review of the chart prior to signing ED Disposition - Plan for ED Patient: Referrals: Bret You Chi, MD [Primary Care Provider] -
[2019-09-27 15:39] VITALS: PULSE 101; RESP 20; O2SAT 97
[2019-09-27 16:01] LABS: Absolute Lymphocyte Count 1.66 X10^3/uL (0.83-4.51); Absolute Neutrophil Count 4.5 X10^3/uL (2.0-7.7); Basophil# 0.02 X10^3/uL; Basophil% 0.3 % (0-1); Eosinophil# 0.15 X10^3/uL; Eosinophils% 2.2 % (0-5); Hematocrit 29.1 % (37-47); Hemoglobin 9.5 g/dL (12.0-15.0); Lymphocyte # 1.66 X10^3/ul (4.0); Lymphocyte % 24.1 % (19-41); Mean Corp Hgb Conc 32.6 g/dL (32-36); Mean Corpuscular Hgb 32.8 pg (27.0-32.0); Mean Corpuscular Volume 100.3 fL (81-99); Mean Platelet Vol. 8.2 fl (6.2-12.0); Monocyte# 0.56 X10^3/uL; Monocyte% 8.1 % (0-10); NRBC Flagged by Analyzer 0 % (0-5); Neutrophil # 4.47 X10^3/uL (2.7-7.7); Platelet Count 388 K/mm3 (150-450); RBC Distribution Width SD 55.7 fl (35.1-43.9); White Blood Count 6.9 K/mm3 (4.4-11.0)
[2019-09-27 16:15] LABS: Erythrocyte Sedimentation Rate 16 mm/hr (0-30)
[2019-09-27 16:23] LABS: ALB/GLOB Ratio 1.2 RATIO (0.9-2.4); AST(SGOT) 14 U/L (15-37); Alanine Aminotransfer ALT/SGPT 30 U/L (13-56); Albumin, Serum 3.5 g/dL (3.2-5.0); Alkaline Phosphatase 59 U/L (45-117); Anion Gap 6 (5-15); BUN 20 mg/dL (7-18); BUN/Creat Ratio 16.4 RATIO (10-20); Chloride 106 mmol/L (98-107); Creatinine, Serum 1.22 mg/dL (0.55-1.02); EST Glomerular Filtration Rate 49 mL/min (>60); Est Glom Filt Rate - Afr Amer 59 mL/min (>60); Estimated Creatinine Clearance 37.86 ml/min; Globulin 2.9 g/dL (2.2-4.2); Glucose 162 mg/dL (74-106); Potassium 3.9 mmol/L (3.5-5.1); Protein, Total 6.4 g/dL (6.4-8.2); Sodium Level 139 mmol/L (136-145)
[2019-09-27] MEDS: hydrOXYzine 10 MG Tablet PO (16:28)
--- NOTE | 2019-09-27 16:37 | ED.DEP ---
ED Disposition - Plan for ED Patient: Instructions: DERMATITIS, Non-Specific Prescriptions: Prednisone [Deltasone] 20 mg PO BID #10 tab Transmission Status: Pending to [id number] Prednisone 10 mg PO TID PRN #30 tab.ds.pk PRN Reason: Itching Transmission Status: Pending to [facility] Referrals: Bret You Chi, MD [Primary Care Provider] - Robbi Guerrero MD [STAFF PHYSICIAN] - 5-7 Days
[2019-09-27] MEDS: predniSONE 20 MG Tablet 40 MG PO (16:46)
--- NOTE | 2019-10-14 23:41 | ED.RN ---
CHART OPENED TO PRINT STICKERS FOR T-SHEET
== END 2019-09-27 16:48 | disposition home or self-care (01) ==
LOC: ED 15:33
PROVIDERS: Emergency Provider Emergency Medicine; PCP Family Medicine Geriatric Medicine
DX: L30.9 Dermatitis, unspecified (principal)
CPT/HCPCS: 80053; 85025; 85652; 99284; A4216

== ENCOUNTER → 2019-10-15 | Outpatient (CLI) | payer MEDICAID, SELFPAY ==
[2019-09-27 15:05] VITALS: BMI 29.9
--- NOTE | 2019-10-15 13:41 | RAD_ITS ---
STUDY: X-RAY - LEFT KNEE REASON FOR EXAM: Female, 54 years old. PAIN, FELL X 2 WEEKS AGO TECHNIQUE: 4 view(s) of the knee. COMPARISON: 05 June 2019 FINDINGS: Normal visualized distal femur. Normal visualized proximal tibia and fibula. Normal proximal tibiofibular articulation. Normal medial femorotibial compartment. Normal lateral femorotibial compartment. Normal patellofemoral articulation. The soft tissue structures are unremarkable. RAD/Knee 4 or More Views IMPRESSION: Normal x-ray examination of the knee. Electronically Signed: Ed Mahoney, at 8:21 EST Tel , Service support ,
--- NOTE | 2019-10-15 13:41 | RAD_ITS ---
STUDY: X-RAY - RIGHT KNEE REASON FOR EXAM: Female, 54 years old. PAIN, FELL X 2 WEEKS AGO TECHNIQUE: 3 view(s) of the knee. COMPARISON: None. FINDINGS: Normal visualized distal femur. Normal visualized proximal tibia and fibula. Normal proximal tibiofibular articulation. Normal medial femorotibial compartment. Normal lateral femorotibial compartment. Normal patellofemoral articulation. The soft tissue structures are unremarkable. RAD/Knee 4 or More Views IMPRESSION: Normal x-ray examination of the knee. Electronically Signed: Ed Mahoney, at 19:25 EST Tel , Service support ,
== END | disposition home or self-care (01) ==
LOC: RAD 13:39
PROVIDERS: PCP Family Medicine Geriatric Medicine; Referring Provider Anesthesiology Pain Medicine; Visit Provider Anesthesiology Pain Medicine
DX: M25.561 Pain in right knee (principal); M25.562 Pain in left knee
CPT/HCPCS: 73564

== ENCOUNTER → 2019-10-16 12:24 | Outpatient (CLI) | payer MEDICAID, SELFPAY ==
[2019-09-27 15:05] VITALS: BMI 29.9
== END ==
PROVIDERS: PCP Family Medicine Geriatric Medicine; Referring Provider Family Medicine Geriatric Medicine; Visit Provider Family Medicine Geriatric Medicine
DX: R68.83 Chills (without fever) (principal)
CPT/HCPCS: 87633

== ENCOUNTER 2019-11-03 16:39 | Emergency (ER) | payer MEDICAID, SELFPAY ==
[2019-11-03 16:40] VITALS: BP 141/63; PULSE 121; RESP 16; TEMP 37.1; O2SAT 95; BMI 30.2
[2019-11-03 16:55] LABS: Bedside Glucose 230 mg/dL (70-110)
--- NOTE | 2019-11-03 17:04 | EKG12_ITS ---
Test Reason : GENERAL ILLNESS Blood Pressure : / mmHG Vent. Rate : 111 BPM Atrial Rate : 111 BPM P-R Int : 188 ms QRS Dur : 076 ms QT Int : 322 ms P-R-T Axes : 071 079 060 degrees QTc Int : 437 ms Sinus tachycardia Otherwise normal ECG Confirmed by AMINATA PEDROZA, JOSE ([id number]), managing editor ZAHIRA BARRIENTOS ([id number]) on 11/04/2019 3:23:23 PM Referred By: /SOFIYA Confirmed By:JOSE COATES MD
[2019-11-03] MEDS: 0.9% Normal Saline 1,000 ML 1000 ML IV (17:21)
--- NOTE | 2019-11-03 17:23 | ED.VIS.GEN ---
History of Present Illness Informant: Patient Onset: Days - 3 days Context: Gradual Onset Timing: Continuous Quality: Lightheaded Location: Generalized Current Severity: Severe Maximum Severity: Severe Worsened by: Nothing Relieved by: Nothing Associated Symptoms: Elevated blood sugar and nonproductive cough Narrative: 54-year-old female past medical history of type 2 diabetes currently on metformin only presents to the emergency department with complaints of generalized fatigue some lightheadedness and elevated blood sugar. For 3 days her blood sugar has been anywhere from 200-300. She states that her blood sugar rarely goes above 200. She is on metformin only. She has been on this for about 15 years. She has a nonproductive cough. No fevers. No vomiting or diarrhea. No headaches. No neck pain. She does not feel dizziness or room spinning sensation. Denies numbness tingling or weakness. Denies back pain. She has not missed any doses of her metformin. Prior similar symptoms: No Recent Illness/Hospitalization: No <Odell Araya - Last Filed: 11/03/19 17:23> <Jameel Ballard - Last Filed: 11/03/19 23:06> Chief Complaint: Hyperglycemia Past Medical History Prior records reviewed: Yes Past Medical History: - - T2DM Surgical History: hysterectomy Smoking Status: Current every day smoker Alcohol: None Drugs: None - Family History Maternal Family History: Family History (Last Reviewed 03/22/19 @ 08:45 by Maame Johnson) Father Myocardial infarction CVA (cerebral vascular accident) Mother Seizures Heart disease Sister Seizures Family History: Reports: Heart Disease - s/p stents Paternal Family History: Family History (Last Reviewed 03/22/19 @ 08:45 by Maame Johnson) Father Myocardial infarction CVA (cerebral vascular accident) Mother Seizures Heart disease Sister Seizures Family History: Reports: - - Denies history of lung cancer. <Odell Araya - Last Filed: 11/03/19 17:23> - Family History Maternal Family History: Family History (Last Reviewed 03/22/19 @ 08:45 by Maame Johnson) Father Myocardial infarction CVA (cerebral vascular accident) Mother Seizures Heart disease Sister Seizures Paternal Family History: Family History (Last Reviewed 03/22/19 @ 08:45 by Maame Johnson) Father Myocardial infarction CVA (cerebral vascular accident) Mother Seizures Heart disease Sister Seizures <Jameel Ballard - Last Filed: 11/03/19 23:06> - Allergies and Home Meds Allergies/Adverse Reactions: Allergies prochlorperazine edisylate [From Compazine] Allergy (Verified 11/03/19 16:39) Rash prochlorperazine maleate [From Compazine] Allergy (Verified 11/03/19 16:39) Rash Primary Care Physician: Bret You Chi, MD [Primary Care Provider] - 3-5 Days if not improving Review of Systems All systems negative except as indicated General: Reports: Malaise. Denies: Chills, Fever Eyes: Denies: Visual changes - bilaterally, Blurred Vision - bilaterally, Diplopia ENT: Denies: Rhinorrhea, Sore throat Cardiovascular: Denies: Chest pain, Palpitations, Heart racing Respiratory: Reports: Cough. Denies: Dyspnea, Sputum, Dyspnea on exertion, Orthopnea, Paroxysmal nocturnal dyspnea Gastrointestinal: Denies: Abdominal pain, Nausea, Vomiting, Diarrhea Genitourinary: Denies: Dysuria, Hematuria, Frequency Musculoskeletal: Denies: Myalgias, Arthralgias, Neck pain, Back pain, Swelling, Extremity Pain Skin: Denies: Rash, Abscess, Abrasions, Wounds Neurological: Denies: Headache, Weakness, Parasthesia, Numbness Psych: Denies: Depression, Anxiety <Odell Araya - Last Filed: 11/03/19 17:23> Physical Exam Vital Signs/Narrative: Vital Signs Temp Pulse Resp BP Pulse Ox 11/03/19 16:40 98.7 F 121 H 16 141/63 H 95 General: Well nourished, Well developed, No Acute Distress Head: Normocephalic, Atraumatic Eyes: Perrl, EOMI ENT: Moist mucous membranes Neck: Supple, Nontender, No lymphadenopathy, No JVD Cardiovascular: Regular rate, Regular rhythm, No murmurs Respiratory: No distress Abdomen: Soft, Nondistended, Normal bowel sounds, No masses Back: Nontender, Normal Inspection Extremities: Nontender, No edema Skin: Normal color, No rash Neurological: Alert, Oriented x3 Psychological: Normal affect, Normal Mood <Odell Araya - Last Filed: 11/03/19 17:23> Vital Signs/Narrative: Vital Signs Temp Pulse Resp BP Pulse Ox 11/03/19 18:39 16 11/03/19 16:40 98.7 F 121 H 16 141/63 H 95 <Jameel Ballard - Last Filed: 11/03/19 23:06> Diagnostic/Tx/Re-eval Chest X-Ray - ED: 2 View, Read by ED Physician, Read by Radiologist, Chronic Changes Clinical Impression(s) from Imaging Studies Chest X-Ray 11/03/19 17:25 IMPRESSION: No definitive acute focal infiltrate. Right seventh rib fracture which appears recent potentially acute. Electronically Signed: Gisel Morgan MD at 17:59 EDT Tel , Service support , Laboratory Data 11/03/19 11/03/19 11/03/19 16:49 17:15 17:20 WBC 5.0 RBC 2.90 L Hgb 9.1 L Hct 28.8 L MCV 99.3 H MCH 31.4 MCHC 31.6 L RDW Std Deviation 54.5 H RDW Coeff of Autumn 15.2 H Plt Count 310 MPV 8.5 Immature Gran % (Auto) 0.600 Neut % (Auto) 81.0 H Lymph % (Auto) 8.4 L [place] % (Auto) 8.2 Eos % (Auto) 1.4 Baso % (Auto) 0.4 Absolute Neuts (auto) 4.1 Absolute Lymphs (auto) 0.42 L Nucleated RBC % 0 Differential Comment SCANNED Sodium Potassium Chloride Carbon Dioxide Anion Gap BUN Creatinine Estim Creat Clear Calc Est GFR (MDRD) Af Amer Est GFR (MDRD) Non-Af BUN/Creatinine Ratio Glucose Calcium Urine Color Yellow Urine Clarity Clear Urine pH 6.0 Ur Specific [place] 1.010 Urine Protein Negative Urine Glucose (UA) 50 H Urine Ketones Negative Urine Occult Blood Negative Urine Nitrite Negative Urine Bilirubin Negative Urine Urobilinogen Normal Ur Leukocyte Esterase Negative Urine RBC 0 SEEN Urine WBC 0 SEEN Ur Squamous Epith Cells 0-5 SEEN Urine Bacteria 0 SEEN Urine Mucus 0 SEEN POC Glucose 230 H 11/03/19 17:20 WBC RBC Hgb Hct MCV MCH MCHC RDW Std Deviation RDW Coeff of Autumn Plt Count MPV Immature Gran % (Auto) Neut % (Auto) Lymph % (Auto) [place] % (Auto) Eos % (Auto) Baso % (Auto) Absolute Neuts (auto) Absolute Lymphs (auto) Nucleated RBC % Differential Comment Sodium 137 Potassium 3.9 Chloride 105 Carbon Dioxide 27.0 Anion Gap 5 BUN 19 H Creatinine 1.17 H Estim Creat Clear Calc 39.48 Est GFR (MDRD) Af Amer 62 Est GFR (MDRD) Non-Af 51 L BUN/Creatinine Ratio 16.2 Glucose 230 H Calcium 8.5 Urine Color Urine Clarity Urine pH Ur Specific [place] Urine Protein Urine Glucose (UA) Urine Ketones Urine Occult Blood Urine Nitrite Urine Bilirubin Urine Urobilinogen Ur Leukocyte Esterase Urine RBC Urine WBC Ur Squamous Epith Cells Urine Bacteria Urine Mucus POC Glucose - Medical Decision Making I supervised the PA and have performed my own pertinent history and physical. Results and treatment plan were discussed. HPI: Patient reports that her blood sugars been running high the past couple of days. She also reports she has had a nonproductive cough the past couple of days. She has subjective fever and chills. She denies any shortness of breath. She denies chest pain. No abdominal pain, nausea, vomiting, diarrhea. No dysuria or frequency. PE: Regular rate and rhythm with no murmur. Respiratory exam is clear to all station bilaterally. Abdominal exam is benign. Soft, nontender, nondistended. Normal bowel sounds. Emergency Department course: Patient had an IV placed. She was given a liter normal saline. Labs are unremarkable. She does not have a pneumonia. She is resting comfortably. Treatment Plan: Patient be discharged with symptomatic care. Follow-up with her primary care physician in 3 to 5 days if not improving. Return to the emergency department for any worsening symptoms. This note was generated with [employer] dictation software. It may contain incorrect words, spelling, and punctuation that were not noted in review of the chart prior to signing. <Jameel Ballard - Last Filed: 11/03/19 23:06> ED Disposition <Odell Araya - Last Filed: 11/03/19 17:23> <Jameel Ballard - Last Filed: 11/03/19 23:06> - Plan for ED Patient: Disposition: Home or Assisted Living Instructions: URI, Viral, No Abx (Adult) Referrals: Bret You Chi, MD [Primary Care Provider] - 3-5 Days if not improving
--- NOTE | 2019-11-03 17:25 | RAD_ITS ---
STUDY: X-RAY CHEST REASON FOR EXAM: Female, 54 years old. COUGH, FATIGUE, HYPERGLYCEMIA TECHNIQUE: PA and lateral views of the chest. COMPARISON: August 22, 2019 FINDINGS: Since prior study the left upper lobe infiltrate is resolved. There is a pattern of minimal interstitial prominence. There is no definitive focal infiltrate. There is no demonstrated pleural abnormality. Normal size heart. Normal mediastinum and lauryn. Normal visualized pulmonary arteries. Normal visualized aortic arch and descending thoracic aorta. Normal visualized thoracic spine. There is a right seventh rib fracture. There is no demonstrated abnormality of the visualized soft tissue structures of the upper abdomen. RAD/Chest PA and Lateral IMPRESSION: No definitive acute focal infiltrate. Right seventh rib fracture which appears recent potentially acute. Electronically Signed: Gisel Morgan MD at 17:59 EDT Tel , Service support ,
[2019-11-03 17:38] LABS: Bacteria 0 SEEN /hpf (None Seen); Mucous, Urine 0 SEEN /hpf (<or=2+); Red Blood Cells-Urine 0 SEEN /hpf (0-5); White Blood Cells 0 SEEN /hpf (0-5)
[2019-11-03 17:40] LABS: Absolute Lymphocyte Count 0.42 X10^3/uL (0.83-4.51); Absolute Neutrophil Count 4.1 X10^3/uL (2.0-7.7); Basophil# 0.02 X10^3/uL; Basophil% 0.4 % (0-1); Eosinophil# 0.07 X10^3/uL; Eosinophils% 1.4 % (0-5); Hematocrit 28.8 % (37-47); Hemoglobin 9.1 g/dL (12.0-15.0); Lymphocyte # 0.42 X10^3/ul (4.0); Lymphocyte % 8.4 % (19-41); Mean Corp Hgb Conc 31.6 g/dL (32-36); Mean Corpuscular Hgb 31.4 pg (27.0-32.0); Mean Corpuscular Volume 99.3 fL (81-99); Mean Platelet Vol. 8.5 fl (6.2-12.0); Monocyte# 0.41 X10^3/uL; Monocyte% 8.2 % (0-10); NRBC Flagged by Analyzer 0 % (0-5); Neutrophil # 4.07 X10^3/uL (2.7-7.7); POSITIVE DIFFERENTIAL YES; Platelet Count 310 K/mm3 (150-450); RBC Distribution Width CV 15.2 % (11.6-14.6); RBC Distribution Width SD 54.5 fl (35.1-43.9)
[2019-11-03 17:42] LABS: Color, Urine Yellow (Yellow); Glucose, Dipstick 50 mg/dl (Normal); Ketone-Dipstick Negative (Negative); Leukocyte Esterase-Dipstick Negative /ul (Negative); Nitrite-Dipstick Negative (Negative); Occult Blood-Urine Negative /ul (Negative); Protein-Dipstick Negative (Negative); Urine Bilirubin Dipstick Negative (Negative); Urine Clarity Clear (Clear); Urine Urobilinogen Normal (Normal)
[2019-11-03 17:52] LABS: Squamous Epithelial Cells - UA 0-5 SEEN /hpf (5-10)
[2019-11-03 17:53] LABS: Differential Indicated SCAN CRITERIA MET
[2019-11-03 18:01] LABS: Anion Gap 5 (5-15); BUN 19 mg/dL (7-18); BUN/Creat Ratio 16.2 RATIO (10-20); Calcium,Total 8.5 mg/dL (8.5-10.1); Chloride 105 mmol/L (98-107); Creatinine, Serum 1.17 mg/dL (0.55-1.02); EST Glomerular Filtration Rate 51 mL/min (>60); Est Glom Filt Rate - Afr Amer 62 mL/min (>60); Estimated Creatinine Clearance 39.48 ml/min; Glucose 230 mg/dL (74-106); Potassium 3.9 mmol/L (3.5-5.1); Sodium Level 137 mmol/L (136-145)
[2019-11-03 18:03] LABS: Differential Comment SCANNED
[2019-11-03 18:39] VITALS: RESP 16
[2019-11-03 19:35] VITALS: BP 137/61; PULSE 121; RESP 22; O2SAT 96
== END 2019-11-03 19:43 | disposition home or self-care (01) ==
LOC: ED 17:53
PROVIDERS: Emergency Provider Physician Assistant Medical; PCP Family Medicine Geriatric Medicine
DX: J06.9 Acute upper respiratory infection, unspecified (principal); E11.9 Type 2 diabetes mellitus without complications; F17.200 Nicotine dependence, unspecified, uncomplicated; Z79.84 Long term (current) use of oral hypoglycemic drugs
CPT/HCPCS: 71046; 80048; 81001; 82962; 85025; 93005; 96360; 99283; J7030

== ENCOUNTER → 2019-11-06 | Outpatient (CLI) | payer MEDICAID, SELFPAY ==
[2019-11-03 16:40] VITALS: BMI 30.2
[2019-11-06 11:36] LABS: Absolute Neutrophil Count 2.8 X10^3/uL (2.0-7.7); Basophil# 0.01 X10^3/uL; Basophil% 0.2 % (0-1); Eosinophil# 0.07 X10^3/uL; Eosinophils% 1.7 % (0-5); Hematocrit 28.5 % (37-47); Hemoglobin 9.2 g/dL (12.0-15.0); Lymphocyte % 21.5 % (19-41); Mean Corp Hgb Conc 32.3 g/dL (32-36); Mean Corpuscular Hgb 32.2 pg (27.0-32.0); Mean Corpuscular Volume 99.7 fL (81-99); Mean Platelet Vol. 8.8 fl (6.2-12.0); Monocyte# 0.43 X10^3/uL; Monocyte% 10.3 % (0-10); NRBC Flagged by Analyzer 0 % (0-5); Neutrophil # 2.75 X10^3/uL (2.7-7.7); Neutrophil % 65.8 % (47-70); Platelet Count 206 K/mm3 (150-450); RBC Distribution Width CV 15.3 % (11.6-14.6); RBC Distribution Width SD 55.5 fl (35.1-43.9); Red Blood Count 2.86 M/mm3 (4.2-5.4); White Blood Count 4.2 K/mm3 (4.4-11.0)
[2019-11-06 11:49] LABS: Anion Gap 5 (5-15); BUN 12 mg/dL (7-18); BUN/Creat Ratio 12.1 RATIO (10-20); Calcium,Total 8.4 mg/dL (8.5-10.1); Chloride 106 mmol/L (98-107); EST Glomerular Filtration Rate 62 mL/min (>60); Est Glom Filt Rate - Afr Amer 75 mL/min (>60); Glucose 103 mg/dL (74-106); Potassium 4.3 mmol/L (3.5-5.1); Sodium Level 136 mmol/L (136-145)
== END | disposition home or self-care (01) ==
PROVIDERS: PCP Family Medicine Geriatric Medicine; Referring Provider Family Medicine Geriatric Medicine; Visit Provider Family Medicine Geriatric Medicine
DX: R53.83 Other fatigue (principal); R68.83 Chills (without fever)
CPT/HCPCS: 36415; 80048; 85025; 87633

== ENCOUNTER → 2019-12-03 | Outpatient (CLI) | payer MEDICAID, SELFPAY ==
[2019-11-03 16:40] VITALS: BMI 30.2
[2019-12-03 12:10] LABS: Absolute Lymphocyte Count 1.27 X10^3/uL (0.83-4.51); Absolute Neutrophil Count 3.1 X10^3/uL (2.0-7.7); Basophil# 0.02 X10^3/uL; Basophil% 0.4 % (0-1); Eosinophil# 0.19 X10^3/uL; Eosinophils% 3.7 % (0-5); Hematocrit 27.7 % (37-47); Hemoglobin 8.7 g/dL (12.0-15.0); Lymphocyte # 1.27 X10^3/ul (4.0); Lymphocyte % 24.6 % (19-41); Mean Corp Hgb Conc 31.4 g/dL (32-36); Mean Corpuscular Hgb 31.1 pg (27.0-32.0); Mean Corpuscular Volume 98.9 fL (81-99); Mean Platelet Vol. 8.5 fl (6.2-12.0); Monocyte# 0.52 X10^3/uL; Monocyte% 10.1 % (0-10); NRBC Flagged by Analyzer 0 % (0-5); Neutrophil # 3.13 X10^3/uL (2.7-7.7); Neutrophil % 60.6 % (47-70); Platelet Count 437 K/mm3 (150-450); RBC Distribution Width CV 15.9 % (11.6-14.6); RBC Distribution Width SD 56.9 fl (35.1-43.9); White Blood Count 5.2 K/mm3 (4.4-11.0)
[2019-12-03 12:43] LABS: ALB/GLOB Ratio 1.2 RATIO (0.9-2.4); AST(SGOT) 11 U/L (15-37); Alanine Aminotransfer ALT/SGPT 22 U/L (13-56); Albumin, Serum 3.3 g/dL (3.2-5.0); Alkaline Phosphatase 58 U/L (45-117); Anion Gap 7 (5-15); BUN 28 mg/dL (7-18); BUN/Creat Ratio 19.2 RATIO (10-20); Calcium,Total 8.5 mg/dL (8.5-10.1); Chloride 101 mmol/L (98-107); Creatinine, Serum 1.46 mg/dL (0.55-1.02); EST Glomerular Filtration Rate 40 mL/min (>60); Est Glom Filt Rate - Afr Amer 48 mL/min (>60); Globulin 2.8 g/dL (2.2-4.2); Glucose 103 mg/dL (74-106); Potassium 4.8 mmol/L (3.5-5.1); Protein, Total 6.1 g/dL (6.4-8.2); Sodium Level 134 mmol/L (136-145); Thyroid Stim Hormone (TSH) 1.67 uIU/mL (0.358-3.74)
== END | disposition home or self-care (01) ==
PROVIDERS: PCP Family Medicine Geriatric Medicine; Visit Provider Family Medicine Geriatric Medicine
DX: E11.9 Type 2 diabetes mellitus without complications (principal); I10 Essential (primary) hypertension
CPT/HCPCS: 36415; 80053; 84443; 85025

== ENCOUNTER → 2019-12-04 | Outpatient (CLI) | payer MEDICAID, SELFPAY ==
[2019-12-04 13:00] LABS: Anion Gap 4 (5-15); BUN 20 mg/dL (7-18); BUN/Creat Ratio 19.6 RATIO (10-20); Chloride 114 mmol/L (98-107); Creatinine, Serum 1.02 mg/dL (0.55-1.02); EST Glomerular Filtration Rate 60 mL/min (>60); Est Glom Filt Rate - Afr Amer 73 mL/min (>60); Glucose 94 mg/dL (74-106); Potassium 4.7 mmol/L (3.5-5.1); Sodium Level 140 mmol/L (136-145)
== END | disposition home or self-care (01) ==
LOC: POLAB3 11:09
PROVIDERS: PCP Family Medicine Geriatric Medicine; Visit Provider Family Medicine Geriatric Medicine
DX: E86.0 Dehydration (principal)
CPT/HCPCS: 36415; 80048

== ENCOUNTER → 2019-12-13 | Outpatient (CLI) | payer MEDICAID, SELFPAY ==
[2019-12-13 11:55] LABS: Absolute Lymphocyte Count 1.59 X10^3/uL (0.83-4.51); Absolute Neutrophil Count 4.2 X10^3/uL (2.0-7.7); Basophil# 0.03 X10^3/uL; Basophil% 0.4 % (0-1); Eosinophil# 0.19 X10^3/uL; Eosinophils% 2.8 % (0-5); Hematocrit 29.4 % (37-47); Hemoglobin 9.3 g/dL (12.0-15.0); Lymphocyte # 1.59 X10^3/ul (4.0); Lymphocyte % 23.6 % (19-41); Mean Corp Hgb Conc 31.6 g/dL (32-36); Mean Platelet Vol. 8.3 fl (6.2-12.0); Monocyte# 0.71 X10^3/uL; Monocyte% 10.5 % (0-10); NRBC Flagged by Analyzer 0 % (0-5); Neutrophil # 4.18 X10^3/uL (2.7-7.7); Neutrophil % 62.1 % (47-70); Platelet Count 509 K/mm3 (150-450); RBC Distribution Width SD 60.1 fl (35.1-43.9); White Blood Count 6.7 K/mm3 (4.4-11.0)
[2019-12-13 12:03] LABS: Anion Gap 6 (5-15); BUN 14 mg/dL (7-18); BUN/Creat Ratio 13.3 RATIO (10-20); Chloride 104 mmol/L (98-107); Creatinine, Serum 1.05 mg/dL (0.55-1.02); EST Glomerular Filtration Rate 58 mL/min (>60); Est Glom Filt Rate - Afr Amer 70 mL/min (>60); Glucose 74 mg/dL (74-106); Potassium 4.2 mmol/L (3.5-5.1); Sodium Level 138 mmol/L (136-145)
== END | disposition home or self-care (01) ==
LOC: POLAB3 11:26
PROVIDERS: PCP Family Medicine Geriatric Medicine; Visit Provider Family Medicine Geriatric Medicine
DX: R10.9 Unspecified abdominal pain (principal)
CPT/HCPCS: 36415; 80048; 85025

== ENCOUNTER → 2019-12-13 | Outpatient (CLI) | payer MEDICAID, SELFPAY ==
--- NOTE | 2019-12-13 12:39 | CT_ITS ---
STUDY: CT ABDOMEN AND PELVIS WITH CONTRAST REASON FOR EXAM: Female, 54 years old. PT STATED RT SIDE ABDOM PAIN X 1 DAY RADIATION DOSAGE (If Supplied By Facility): CTDIvol = ( 14 ) mGy, DLP = ( 941.44 ) mGycm TECHNIQUE: Transaxial images were obtained from the dome of the diaphragm to the symphysis pubis without oral contrast. Oral and amp; IV Gastrografin and amp; 100mL Isovue-300 was administered. Sagittal and coronal images were reconstructed. Individualized dose optimization techniques were used for this CT. COMPARISON: None. FINDINGS: The visualized lung bases are unremarkable. The visualized portions of the heart are within normal limits. Normal liver. Normal gallbladder and extrahepatic biliary system. Normal spleen. Normal pancreas. Normal bilateral adrenal glands. Normal right kidney. Normal left kidney. There is a diverticulum of the posterior aspect of the gastric fundus measures 4 cm. Normal small intestine. Normal colon. There is non-visualization of the appendix. Normal abdominal aorta. Normal inferior vena cava. Normal retroperitoneum. Normal urinary bladder. Normal abdominal wall. Normal osseous structures. CT/Abdomen/Pelvis WITH Contrast IMPRESSION: No acute abnormality of the abdomen and pelvis. Electronically Signed: Fide Karimi, at 15:28 EDT Tel , Service support ,
== END | disposition home or self-care (01) ==
PROVIDERS: PCP Family Medicine Geriatric Medicine; Referring Provider Family Medicine Geriatric Medicine; Visit Provider Family Medicine Geriatric Medicine
DX: R10.9 Unspecified abdominal pain (principal)
CPT/HCPCS: 36415; 74177; 80048; 85025; Q9967

== ENCOUNTER 2019-12-14 17:11 | Emergency (ER) | payer MEDICAID, SELFPAY ==
[2019-12-14 17:12] VITALS: BP 151/63; PULSE 128; RESP 16; TEMP 36.7; O2SAT 100; BMI 29.2
[2019-12-14 17:22] VITALS: PULSE 118; RESP 18; O2SAT 98
--- NOTE | 2019-12-14 17:30 | EKG12_ITS ---
Test Reason : Blood Pressure : / mmHG Vent. Rate : 097 BPM Atrial Rate : 097 BPM P-R Int : 162 ms QRS Dur : 086 ms QT Int : 352 ms P-R-T Axes : 047 067 048 degrees QTc Int : 447 ms Normal sinus rhythm Normal ECG Confirmed by JOSE COATES MD ([id number]), news video editor ZAHIRA BARRIENTOS ([id number]) on 12/17/2019 9:04:25 AM Referred By: CD Confirmed By:JOSE COATES MD
--- NOTE | 2019-12-14 17:31 | ED.DCSUM_ITS ---
History of Present Illness Chief Complaint: Abd Pain Informant: Patient Onset: Days Context: Gradual Onset Timing: Waxes and wanes Quality: aching Location: RLQ Current Severity: Mild Maximum Severity: Moderate Narrative: 54-year-old female presents with right lower quadrant pain essentially for the past 3 to 4 days. She denies previous similar symptoms. She has been nauseated but no vomiting. She has had 2-3 episodes of loose watery diarrhea per day. It is currently mild in severity. It is worse with palpation. She has no urinary symptoms and no back pain. No chest pain or shortness of breath. She saw her doctor few days ago and had an outpatient CT scan and blood work but does not know the results yet. Her symptoms have persisted but they are somewhat improved. Prior similar symptoms: No Recent Illness/Hospitalization: No Capacity - Capacity Assessment Tool Can the patient make a choice & communicate that choice?: Yes Past Medical History - Allergies and Home Meds Allergies/Adverse Reactions: Allergies prochlorperazine edisylate [From Compazine] Allergy (Verified 12/14/19 17:12) Rash prochlorperazine maleate [From Compazine] Allergy (Verified 12/14/19 17:12) Rash Primary Care Physician: Bret You Chi, MD [Primary Care Provider] - Prior records reviewed: No Surgical History: hysterectomy Smoking Status: Current every day smoker - Family History Maternal Family History: Family History (Last Reviewed 03/22/19 @ 08:45 by Maame Johnson) Father Myocardial infarction CVA (cerebral vascular accident) Mother Seizures Heart disease Sister Seizures Family History: Reports: Heart Disease - s/p stents Paternal Family History: Family History (Last Reviewed 03/22/19 @ 08:45 by Maame Johnson) Father Myocardial infarction CVA (cerebral vascular accident) Mother Seizures Heart disease Sister Seizures Family History: Reports: - - Denies history of lung cancer. Review of Systems General: Denies: Chills, Fever, Sweats Eyes: Denies: Visual changes - bilaterally, Diplopia ENT: Denies: Rhinorrhea, Sore throat Cardiovascular: Denies: Chest pain, Palpitations Respiratory: Denies: Dyspnea, Cough, Dyspnea on exertion Gastrointestinal: Reports: Abdominal pain, Nausea, Diarrhea. Denies: Vomiting, Melena, Hematochezia Genitourinary: Denies: Dysuria, Hematuria, Frequency Musculoskeletal: Denies: Back pain, Extremity Pain Skin: Denies: Rash, Wounds Neurological: Denies: Headache, Weakness, Numbness Physical Exam Vital Signs/Narrative: Vital Signs Temp Pulse Resp BP Pulse Ox 12/14/19 17:22 118 H 18 98 12/14/19 17:12 98.0 F 128 H 16 151/63 H 100 General: Well nourished, Well developed, No Acute Distress Head: Normocephalic, Atraumatic Eyes: Perrl, EOMI ENT: Moist mucous membranes, No rhinorrhea Neck: Supple, Nontender Cardiovascular: Regular rate, Regular rhythm, No murmurs Respiratory: No distress, CTA bilaterally, Chest nontender Abdomen: Soft, Nondistended, Normal bowel sounds, Tender - RLQ Back: Nontender, Normal Inspection Extremities: Nontender, No edema Skin: Normal color, No rash Neurological: Alert, Oriented x3, Cranial nerves II-XII grossly intact, Normal Strength, Normal Sensation Psychological: Normal affect, Normal Mood Diagnostic/Tx/Re-eval - Medical Decision Making Labs were repeated. Fairly unremarkable except for anemia that is somewhat worse. Her stool has not been dark or tarry. I obtained verbal informed con sent and there was a female nurse in the room when I performed a digital rectal examination. The stool is brown and is Hemoccult negative. She has no evidence of GI bleed. She has chronic anemia and has actually been lower before. She has no evidence of an acute surgical abdomen and she had a negative CT abdomen/pelvis yesterday with IV and p.o. contrast. We discussed repeating it however she looks well and is feeling much better after fluids and has no peritoneal signs. She would prefer not to repeat which I think is reasonable. I do not think she will benefit from a repeat within 24 hours. The exact cause is unclear and I explained this to her. Given her well appearance though, I feel she can safely be discharged home with close follow-up. She will return here if worse. I explained return precautions at length. ED Disposition - Plan for ED Patient: Disposition: Home or Assisted Living Diagnosis: Diarrhea, Abdominal pain of unknown etiology, Anemia Instructions: ED Abdominal Pain Unkn Cause Fem, Anemia Referrals: Bret You Chi, MD [Primary Care Provider] -
[2019-12-14] MEDS: Ondansetron 4 MG/2 ML Vial IV (17:46)
[2019-12-14] MEDS: Morphine 4 MG/ML Syringe IV (17:46)
[2019-12-14] MEDS: 0.9% Normal Saline 1,000 ML 1000 ML IV (17:46)
[2019-12-14 17:59] LABS: Absolute Lymphocyte Count 1.12 X10^3/uL (0.83-4.51); Absolute Neutrophil Count 3.7 X10^3/uL (2.0-7.7); Basophil# 0.02 X10^3/uL; Basophil% 0.4 % (0-1); Eosinophils% 3.5 % (0-5); Hematocrit 27.8 % (37-47); Hemoglobin 8.7 g/dL (12.0-15.0); Lymphocyte # 1.12 X10^3/ul (4.0); Lymphocyte % 19.8 % (19-41); Mean Corp Hgb Conc 31.3 g/dL (32-36); Mean Corpuscular Hgb 31.1 pg (27.0-32.0); Mean Corpuscular Volume 99.3 fL (81-99); Mean Platelet Vol. 8.1 fl (6.2-12.0); Monocyte# 0.58 X10^3/uL; Monocyte% 10.2 % (0-10); NRBC Flagged by Analyzer 0 % (0-5); Neutrophil # 3.69 X10^3/uL (2.7-7.7); Platelet Count 433 K/mm3 (150-450); RBC Distribution Width SD 60.5 fl (35.1-43.9); White Blood Count 5.7 K/mm3 (4.4-11.0)
[2019-12-14 18:15] LABS: AST(SGOT) 12 U/L (15-37); Alanine Aminotransfer ALT/SGPT 25 U/L (13-56); Albumin, Serum 3.3 g/dL (3.2-5.0); Alkaline Phosphatase 67 U/L (45-117); Anion Gap 6 (5-15); BUN 11 mg/dL (7-18); BUN/Creat Ratio 9.6 RATIO (10-20); Bilirubin, Direct 0.09 mg/dL (0.00-0.30); Calcium,Total 8.7 mg/dL (8.5-10.1); Chloride 106 mmol/L (98-107); Creatinine, Serum 1.15 mg/dL (0.55-1.02); EST Glomerular Filtration Rate 52 mL/min (>60); Est Glom Filt Rate - Afr Amer 63 mL/min (>60); Estimated Creatinine Clearance 40.17 ml/min; Globulin 3.2 g/dL (2.2-4.2); Glucose 179 mg/dL (74-106); Lipase 164 U/L (73-393); Potassium 4.3 mmol/L (3.5-5.1); Protein, Total 6.5 g/dL (6.4-8.2); Sodium Level 138 mmol/L (136-145)
[2019-12-14 18:43] LABS: Bacteria 0 SEEN /hpf (None Seen); Mucous, Urine 0 SEEN /hpf (<or=2+); Red Blood Cells-Urine 0 SEEN /hpf (0-5); Squamous Epithelial Cells - UA 0 SEEN /hpf (5-10); White Blood Cells 0 SEEN /hpf (0-5)
[2019-12-14 18:48] LABS: Color, Urine Straw (Yellow); Glucose, Dipstick Normal (Normal); Ketone-Dipstick Negative (Negative); Leukocyte Esterase-Dipstick 25 /ul (Negative); Nitrite-Dipstick Negative (Negative); Occult Blood-Urine Negative /ul (Negative); Protein-Dipstick Negative (Negative); Specific Gravity, Urine 1.005 (1.002-1.030); Urine Bilirubin Dipstick Negative (Negative); Urine Clarity Clear (Clear); Urine Urobilinogen Normal (Normal)
[2019-12-14 19:15] VITALS: RESP 16
[2019-12-14 20:59] VITALS: BP 134/65; PULSE 94; RESP 16; O2SAT 97
== END 2019-12-14 21:01 | disposition home or self-care (01) ==
PROVIDERS: Emergency Provider Emergency Medicine; PCP Family Medicine Geriatric Medicine
DX: R10.31 Right lower quadrant pain (principal); D64.9 Anemia, unspecified; R19.7 Diarrhea, unspecified; F17.200 Nicotine dependence, unspecified, uncomplicated
CPT/HCPCS: 80048; 80076; 81001; 82274; 83690; 85025; 93005; 96361; 96374; 96375; 99282; J7030; A4216; J2405

== ENCOUNTER 2019-12-19 19:29 | Emergency (ER) | payer MEDICAID, SELFPAY ==
[2019-12-19 19:30] VITALS: BP 153/65; PULSE 110; RESP 16; TEMP 36.6; O2SAT 96; BMI 30.4
--- NOTE | 2019-12-19 19:40 | CT_ITS ---
STUDY: CT ABDOMEN AND PELVIS WITH CONTRAST REASON FOR EXAM: Female, 54 years old. FELT A POP LLQ AFTER BENDING OVER,NAUSEA -- HX:ANEMIA,COPD,DIABETES,HYSTERECTOMY RADIATION DOSAGE (If Supplied By Facility): CTDIvol = ( 16.31 ) mGy, DLP = ( 945.53 ) mGycm TECHNIQUE: Transaxial images were obtained from the dome of the diaphragm to the symphysis pubis without oral contrast. IV 100mL Isovue-370 was administered. Sagittal and coronal images were reconstructed. Individualized dose optimization techniques were used for this CT. COMPARISON: December 13, 2019 FINDINGS: Mild diffuse interstitial thickening in the lower lobes. The visualized portions of the heart are within normal limits. Normal liver. Normal gallbladder and extrahepatic biliary system. Normal spleen. Normal pancreas. Normal bilateral adrenal glands. Normal right kidney. Normal left kidney. Small epiphrenic gastric diverticulum. Mild nonspecific ileus with diffuse fecal retention in the colon.. No evidence for acute appendicitis. Minor atherosclerotic changes of the aorta without evidence for aneurysm. Normal inferior vena cava. Normal retroperitoneum. Normal urinary bladder. Postop change status post hysterectomy Normal abdominal wall. Normal osseous structures. CT/Abdomen/Pelvis W IV Cont ONLY IMPRESSION: Mild nonspecific ileus with diffuse fecal retention in the colon.. Status post hysterectomy. Electronically Signed: Oliverio Frederick MD at 20:34 EDT , Service support ,
--- NOTE | 2019-12-19 19:41 | ED.VIS.GEN ---
History of Present Illness Chief Complaint: Abd Pain Informant: Patient Onset: Today Context: Sudden Onset Timing: Continuous Current Severity: Moderate Maximum Severity: Moderate Narrative: The patient is a 54-year-old female with medical history significant for COPD, abdominal pain, and anemia that presents to the emergency department sudden onset abdominal pain. The patient states that she bent over to put on her shoes. When she stood, she felt a pop in her left lower quadrant. She describes it as a sharp, stabbing pain. It does not radiate to her back. She denies any pain down her legs. She is been nauseated without vomiting. The patient has been experiencing abdominal pain for some time. She is actually scheduled to see surgery tomorrow. She states this is different than her normal abdominal pain. Prior similar symptoms: Yes Recent Illness/Hospitalization: No Past Medical History - Allergies and Home Meds Allergies/Adverse Reactions: Allergies prochlorperazine edisylate [From Compazine] Allergy (Verified 12/19/19 19:32) Rash prochlorperazine maleate [From Compazine] Allergy (Verified 12/19/19 19:32) Rash Primary Care Physician: Bret You Chi, MD [Primary Care Provider] - Prior records reviewed: Yes Past Medical History: - - Anemia, COPD Surgical History: hysterectomy Smoking Status: Current every day smoker - Family History Maternal Family History: Family History (Last Reviewed 03/22/19 @ 08:45 by Maame Johnson) Father Myocardial infarction CVA (cerebral vascular accident) Mother Seizures Heart disease Sister Seizures Family History: Reports: Heart Disease - s/p stents Paternal Family History: Family History (Last Reviewed 03/22/19 @ 08:45 by Maame Johnson) Father Myocardial infarction CVA (cerebral vascular accident) Mother Seizures Heart disease Sister Seizures Family History: Reports: - - Denies history of lung cancer. Review of Systems General: Denies: Chills, Fever, Sweats Eyes: Denies: Visual changes - bilaterally, Diplopia ENT: Denies: Rhinorrhea, Sore throat Cardiovascular: Denies: Chest pain, Palpitations Respiratory: Denies: Dyspnea, Cough, Dyspnea on exertion Gastrointestinal: Reports: Abdominal pain. Denies: Nausea, Vomiting, Diarrhea, Melena, Hematochezia Genitourinary: Denies: Dysuria, Hematuria, Frequency Musculoskeletal: Denies: Back pain, Extremity Pain Skin: Denies: Rash, Wounds Neurological: Denies: Headache, Weakness, Numbness Physical Exam Vital Signs/Narrative: Vital Signs Temp Pulse Resp BP Pulse Ox 12/19/19 19:30 97.9 F 110 H 16 153/65 H 96 Inital Vital Signs reviewed: Yes General: Well nourished, Well developed, No Acute Distress Head: Normocephalic, Atraumatic Eyes: Perrl, EOMI ENT: Moist mucous membranes, No rhinorrhea Neck: Supple, Nontender Cardiovascular: Regular rate, Regular rhythm, No murmurs Respiratory: No distress, CTA bilaterally, Chest nontender Abdomen: Soft, Nondistended, Normal bowel sounds, Tender. Negative for: Guarding, Rebound tenderness Back: Nontender, Normal Inspection Extremities: Nontender, No edema Skin: Normal color, No rash Neurological: Alert, Oriented x3, Cranial nerves II-XII grossly intact, Normal Strength, Normal Sensation Psychological: Normal affect, Normal Mood Diagnostic/Tx/Re-eval Clinical Impression(s) from Imaging Studies Abdomen/Pelvis CT 12/19/19 19:40 IMPRESSION: Mild nonspecific ileus with diffuse fecal retention in the colon.. Status post hysterectomy. Electronically Signed: Oliverio Frederick MD at 20:34 EDT , Service support , Abnormal Lab Results 12/19/19 12/19/19 19:50 19:50 WBC 6.5 RBC 2.72 L Hgb 8.5 L Hct 26.7 L MCV 98.2 MCH 31.3 MCHC 31.8 L RDW Std Deviation 60.8 H RDW Coeff of Autumn 17.1 H Plt Count 458 H MPV 8.3 Immature Gran % (Auto) 0.800 Neut % (Auto) 59.4 Lymph % (Auto) 28.4 [place] % (Auto) 8.3 Eos % (Auto) 2.8 Baso % (Auto) 0.3 Absolute Neuts (auto) 3.9 Absolute Lymphs (auto) 1.84 Nucleated RBC % 0 Sodium 137 Potassium 4.2 Chloride 103 Carbon Dioxide 28.0 Anion Gap 6 BUN 15 Creatinine 1.31 H Estim Creat Clear Calc 35.26 Est GFR (MDRD) Af Amer 54 L Est GFR (MDRD) Non-Af 45 L BUN/Creatinine Ratio 11.5 Glucose 173 H Calcium 8.9 Total Bilirubin 0.10 L AST 11 L ALT 25 Alkaline Phosphatase 71 Total Protein 6.6 Albumin 3.3 Globulin 3.3 Albumin/Globulin Ratio 1.0 - Medical Decision Making The patient presents with sudden onset left lateral abdominal pain after moving. Based on her size, it is hard to determine if she has a definitive hernia. She was given analgesics and antiemetics. Metabolic panel was obtained was unchanged from prior. CT does not show evidence of acute hernia, bowel obstruction, or other dangerous process. There is a mild ileus, but the patient has had no other significant symptoms. She does have surgery follow-up in place tomorrow. At this point, I do feel that her symptoms are likely muscular. She was counseled on results, concerning symptoms, and reasons to return. She will be discharged. Impression 1. Abdominal wall strain ED Disposition - Plan for ED Patient: Instructions: ED Abdominal Pain Adhesions Referrals: Bret You Chi, MD [Primary Care Provider] -
[2019-12-19] MEDS: 0.9% Normal Saline 1,000 ML 1000 ML IV (20:05)
[2019-12-19] MEDS: Ondansetron 4 MG/2 ML Vial IV (20:06)
[2019-12-19] MEDS: Morphine 4 MG/ML Syringe IV (20:06)
[2019-12-19 20:11] LABS: Absolute Lymphocyte Count 1.84 X10^3/uL (0.83-4.51); Absolute Neutrophil Count 3.9 X10^3/uL (2.0-7.7); Basophil# 0.02 X10^3/uL; Basophil% 0.3 % (0-1); Eosinophil# 0.18 X10^3/uL; Eosinophils% 2.8 % (0-5); Hematocrit 26.7 % (37-47); Hemoglobin 8.5 g/dL (12.0-15.0); Lymphocyte # 1.84 X10^3/ul (4.0); Lymphocyte % 28.4 % (19-41); Mean Corp Hgb Conc 31.8 g/dL (32-36); Mean Corpuscular Hgb 31.3 pg (27.0-32.0); Mean Corpuscular Volume 98.2 fL (81-99); Mean Platelet Vol. 8.3 fl (6.2-12.0); Monocyte# 0.54 X10^3/uL; Monocyte% 8.3 % (0-10); NRBC Flagged by Analyzer 0 % (0-5); Neutrophil # 3.86 X10^3/uL (2.7-7.7); Neutrophil % 59.4 % (47-70); POSITIVE MORPHOLOGY YES; Platelet Count 458 K/mm3 (150-450); RBC Distribution Width CV 17.1 % (11.6-14.6); RBC Distribution Width SD 60.8 fl (35.1-43.9); Red Blood Count 2.72 M/mm3 (4.2-5.4); White Blood Count 6.5 K/mm3 (4.4-11.0)
[2019-12-19 20:15] LABS: Differential Indicated SCAN CRITERIA MET
[2019-12-19 20:20] LABS: AST(SGOT) 11 U/L (15-37); Alanine Aminotransfer ALT/SGPT 25 U/L (13-56); Albumin, Serum 3.3 g/dL (3.2-5.0); Alkaline Phosphatase 71 U/L (45-117); Anion Gap 6 (5-15); BUN 15 mg/dL (7-18); BUN/Creat Ratio 11.5 RATIO (10-20); Calcium,Total 8.9 mg/dL (8.5-10.1); Chloride 103 mmol/L (98-107); Creatinine, Serum 1.31 mg/dL (0.55-1.02); EST Glomerular Filtration Rate 45 mL/min (>60); Est Glom Filt Rate - Afr Amer 54 mL/min (>60); Estimated Creatinine Clearance 35.26 ml/min; Globulin 3.3 g/dL (2.2-4.2); Glucose 173 mg/dL (74-106); Potassium 4.2 mmol/L (3.5-5.1); Protein, Total 6.6 g/dL (6.4-8.2); Sodium Level 137 mmol/L (136-145)
[2019-12-19 20:51] LABS: Differential Comment SCANNED
[2019-12-19] MEDS: HYDROcodone Bitartrate/Apap 5/325 Tablet PO (21:02)
[2019-12-19 21:03] VITALS: PULSE 97; RESP 16; O2SAT 98
== END 2019-12-19 21:06 | disposition home or self-care (01) ==
LOC: ED 19:54
PROVIDERS: Emergency Provider Emergency Medicine; PCP Family Medicine Geriatric Medicine
DX: S39.011A Strain of muscle, fascia and tendon of abdomen, initial encounter (principal); J44.9 Chronic obstructive pulmonary disease, unspecified; F17.200 Nicotine dependence, unspecified, uncomplicated; X50.9XXA Other and unspecified overexertion or strenuous movements or postures, initial encounter; Y93.89 Activity, other specified; Y92.009 Unspecified place in unspecified non-institutional (private) residence as the place of occurrence of the external cause; Y99.8 Other external cause status
CPT/HCPCS: 74177; 80053; 85025; 96361; 96374; 96375; 99284; J7030; Q9967; A4216; J2405

== ENCOUNTER → 2019-12-25 | Outpatient (CLI) | payer MEDICAID, SELFPAY ==
[2019-12-23 09:40] VITALS: BMI 30.4
--- NOTE | 2019-12-25 08:24 | US_ITS ---
STUDY: ABDOMINAL ULTRASOUND - RIGHT UPPER QUADRANT REASON FOR VISIT: Female, 54 years old CHRONIC GENERAL ABD PAIN TECHNIQUE: Ultrasound evaluation of the right upper quadrant was performed with real-time and static soni-scale imaging. TECHNICAL QUALITY: Adequate. COMPARISON: Comparison is made with prior CT scan of the abdomen dated December 19, 2019. FINDINGS: Liver: The liver measures 14.8 cm. There is normal echogenicity of the liver. The bile ducts are within normal limits. There is hepatic color flow. The direction of portal flow is hepatopetal. There is no demonstrated mass lesion. Gallbladder: Normal distended gallbladder. The gallbladder wall measures 2.5 mm. There is a negative sonographic Lu''s sign. There is no pericholecystic fluid. There are no gallstones. Common Bile Duct (C.B.D.): The common bile duct is slightly dilated measures 8.6 mm. Pancreas: Normal size of the head, body and tail of the pancreas. There is increased echogenicity of the pancreas. There is no demonstrated pancreatic mass or cyst. Right Kidney: Normal size of the right kidney. The right kidney measures 9.7 cm x 4.1 cm x 3.5 cm. Normal renal cortex. The right cortex measures 1.1 cm. There is no demonstrated renal mass or cyst. There is no right hydronephrosis. US/Abdomen Limited IMPRESSION: Normal right upper quadrant ultrasound examination. Mildly dilated common bile duct. Electronically Signed: Agus Ruelas, at 9:53 EDT , Service support ,
== END | disposition home or self-care (01) ==
LOC: US 08:24
PROVIDERS: PCP Family Medicine Geriatric Medicine; Referring Provider Surgery; Visit Provider Surgery
DX: R10.11 Right upper quadrant pain (principal)
CPT/HCPCS: 76705

== ENCOUNTER → 2019-12-25 | Outpatient (CLI) | payer MEDICAID, SELFPAY ==
[2019-12-25 10:56] VITALS: BMI 30.8
--- NOTE | 2019-12-25 11:03 | RAD_ITS ---
STUDY: X-RAY - LEFT KNEE REASON FOR EXAM: Female, 54 years old. KNEE PAIN, NO TRAUMA TECHNIQUE: 4 view(s) of the knee. COMPARISON: None. FINDINGS: Normal visualized distal femur. Normal visualized proximal tibia and fibula. Normal proximal tibiofibular articulation. Normal medial femorotibial compartment. Normal lateral femorotibial compartment. Normal patellofemoral articulation. The soft tissue structures are unremarkable. RAD/Knee 4 or More Views IMPRESSION: Normal x-ray examination of the knee. Electronically Signed: Agus Ruelas, at 13:38 EDT , Service support ,
== END | disposition home or self-care (01) ==
LOC: HPRAD 11:03
PROVIDERS: PCP Family Medicine Geriatric Medicine; Referring Provider Orthopaedic Surgery; Visit Provider Orthopaedic Surgery
DX: M25.562 Pain in left knee (principal); R10.11 Right upper quadrant pain
CPT/HCPCS: 73564; 76705

== ENCOUNTER 2019-12-26 17:20 | Emergency (ER) | payer MEDICAID, SELFPAY ==
[2019-12-25 11:05] VITALS: BMI 30.4
[2019-12-26 17:21] VITALS: BP 142/92; PULSE 131; RESP 18; TEMP 36.7; O2SAT 96; BMI 31.5
--- NOTE | 2019-12-26 17:47 | EKG12_ITS ---
Test Reason : ABD PAIN Blood Pressure : / mmHG Vent. Rate : 098 BPM Atrial Rate : 098 BPM P-R Int : 182 ms QRS Dur : 086 ms QT Int : 356 ms P-R-T Axes : 060 064 037 degrees QTc Int : 454 ms Normal sinus rhythm Normal ECG Confirmed by ROSEY PEDROZA, ZOYA ([id number]), newspaper managing editor ZAHIRA BARRIENTOS ([id number]) on 12/30/2019 2:21:16 PM Referred By: LULA Confirmed By:ZOYA CURRIE MD
--- NOTE | 2019-12-26 17:53 | ED.DCSUM_ITS ---
History of Present Illness Chief Complaint: Abd Pain Informant: Patient Onset: Weeks - 4 weeks Context: Gradual Onset Timing: Waxes and wanes Current Severity: Moderate Maximum Severity: Moderate Narrative: Patient presents with epigastric abdominal pain. She states is been ongoing for about the last 4 weeks. She was seen in the ER on the and had a CT scan which showed questionable ileus with fecal retention. She was seen by the surgeon for follow-up on the and had an ultrasound of her right upper quadrant yesterday that was grossly unremarkable. Patient presents back today with continued epigastric pain. She states that she is taking naproxen for pain. She also takes Carafate for reflux. She did have an EGD and a colonoscopy approximately 1 year ago. Patient states she was not having symptoms at that time but was found to have bleeding in my esophagus. 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 Crystal Prior records reviewed: Yes Surgical History: hysterectomy Smoking Status: Current every day smoker - Family History Maternal Family History: Family History (Last Reviewed 12/23/19 @ 09:38 by Nicole Valle) Father Myocardial infarction CVA (cerebral vascular accident) Mother Seizures Heart disease Sister Seizures Family History: Reports: Heart Disease - s/p stents Paternal Family History: Family History (Last Reviewed 12/23/19 @ 09:38 by Nicole Valle) Father Myocardial infarction CVA (cerebral vascular accident) Mother Seizures Heart disease Sister Seizures Family History: Reports: - - Denies history of lung cancer. Review of Systems General: Denies: Chills, Fever Eyes: Denies: Visual changes - bilaterally ENT: Denies: Bilateral ear pain Cardiovascular: Denies: Chest pain Respiratory: Denies: Dyspnea, Cough Gastrointestinal: Reports: Abdominal pain, Nausea, Vomiting. Denies: Diarrhea Genitourinary: Denies: Dysuria, Hematuria Musculoskeletal: Denies: Extremity Pain Skin: Denies: Rash Neurological: Denies: Headache Hematologic: Denies: Easy bruising, Easy bleeding Allergy: Denies: Uticaria Physical Exam Vital Signs/Narrative: Vital Signs Temp Pulse Resp BP Pulse Ox 12/26/19 17:21 98.0 F 131 H 18 142/92 H 96 Inital Vital Signs reviewed: Yes General: Well nourished, Well developed Head: Normocephalic ENT: Moist mucous membranes Cardiovascular: Regular rate Respiratory: No distress Abdomen: Soft, Tender - Mild epigastric tenderness.. Negative for: Guarding, Rebound tenderness Back: Nontender Skin: Normal color Neurological: Alert Psychological: Normal affect Diagnostic/Tx/Re-eval Laboratory Results 12/26/19 12/26/19 18:02 18:02 WBC 5.7 RBC 2.71 L Hgb 8.4 L Hct 26.3 L MCV 97.0 MCH 31.0 MCHC 31.9 L RDW Std Deviation 59.1 H RDW Coeff of Autumn 16.9 H Plt Count 473 H MPV 8.1 Immature Gran % (Auto) 0.500 Neut % (Auto) 61.4 Lymph % (Auto) 23.5 [place] % (Auto) 10.6 H Eos % (Auto) 3.3 Baso % (Auto) 0.7 Absolute Neuts (auto) 3.5 Absolute Lymphs (auto) 1.35 Nucleated RBC % 0 Sodium 137 Potassium 4.3 Chloride 106 Carbon Dioxide 24.0 Anion Gap 7 BUN 18 Creatinine 1.18 H Estim Creat Clear Calc 39.15 Est GFR (MDRD) Af Amer 61 Est GFR (MDRD) Non-Af 51 L BUN/Creatinine Ratio 15.3 Glucose 241 H Calcium 8.5 Total Bilirubin 0.10 L Direct Bilirubin 0.06 AST 11 L ALT 24 Alkaline Phosphatase 77 Troponin I < 0.015 Total Protein 6.5 Albumin 3.2 Globulin 3.3 Lipase 164 - EKG Initial EKG Interpretation: Sinus Rhythm - Sinus at 98 with no acute ischemia. - Medical Decision Making Patient was given morphine and Zofran on arrival. Repeat heart rate is in the 90s. Patient Ela told me she was not taking anything for acid reduction but does have Protonix and famotidine on her med list. When I went the back to ask about this she states that she is taking those. I spoke with Dr. Crystal, her surgeon. He states he had reviewed her ultrasound today and left a note for his program scheduler to call the patient to set up an EGD. Patient was advised not to take naproxen or ibuprofen. She is to follow-up for EGD as scheduled. ED Disposition - Plan for ED Patient: Disposition: Home or Assisted Living Diagnosis: Epigastric pain Instructions: ED PEPTIC ULCER vs GASTRITIS Referrals: Odell Crystal MD [STAFF PHYSICIAN] - As soon as possible
[2019-12-26] MEDS: Morphine 4 MG/ML Syringe IV ×2 (18:08→19:05)
[2019-12-26] MEDS: 0.9% Normal Saline 1,000 ML 150 ML IV (18:09)
[2019-12-26] MEDS: Ondansetron 4 MG/2 ML Vial IV (18:09)
[2019-12-26 18:23] LABS: Absolute Lymphocyte Count 1.35 X10^3/uL (0.83-4.51); Absolute Neutrophil Count 3.5 X10^3/uL (2.0-7.7); Basophil# 0.04 X10^3/uL; Basophil% 0.7 % (0-1); Eosinophil# 0.19 X10^3/uL; Eosinophils% 3.3 % (0-5); Hematocrit 26.3 % (37-47); Hemoglobin 8.4 g/dL (12.0-15.0); Lymphocyte # 1.35 X10^3/ul (4.0); Lymphocyte % 23.5 % (19-41); Mean Corp Hgb Conc 31.9 g/dL (32-36); Mean Platelet Vol. 8.1 fl (6.2-12.0); Monocyte# 0.61 X10^3/uL; Monocyte% 10.6 % (0-10); NRBC Flagged by Analyzer 0 % (0-5); Neutrophil # 3.52 X10^3/uL (2.7-7.7); Neutrophil % 61.4 % (47-70); Platelet Count 473 K/mm3 (150-450); RBC Distribution Width CV 16.9 % (11.6-14.6); RBC Distribution Width SD 59.1 fl (35.1-43.9); Red Blood Count 2.71 M/mm3 (4.2-5.4); White Blood Count 5.7 K/mm3 (4.4-11.0)
[2019-12-26 18:34] LABS: AST(SGOT) 11 U/L (15-37); Alanine Aminotransfer ALT/SGPT 24 U/L (13-56); Albumin, Serum 3.2 g/dL (3.2-5.0); Alkaline Phosphatase 77 U/L (45-117); Anion Gap 7 (5-15); BUN 18 mg/dL (7-18); BUN/Creat Ratio 15.3 RATIO (10-20); Bilirubin, Direct 0.06 mg/dL (0.00-0.30); Calcium,Total 8.5 mg/dL (8.5-10.1); Chloride 106 mmol/L (98-107); Creatinine, Serum 1.18 mg/dL (0.55-1.02); EST Glomerular Filtration Rate 51 mL/min (>60); Est Glom Filt Rate - Afr Amer 61 mL/min (>60); Estimated Creatinine Clearance 39.15 ml/min; Globulin 3.3 g/dL (2.2-4.2); Glucose 241 mg/dL (74-106); Lipase 164 U/L (73-393); Potassium 4.3 mmol/L (3.5-5.1); Protein, Total 6.5 g/dL (6.4-8.2); Sodium Level 137 mmol/L (136-145)
[2019-12-26 19:11] VITALS: BP 119/54; PULSE 110; RESP 20; O2SAT 99
== END 2019-12-26 19:23 | disposition home or self-care (01) ==
PROVIDERS: Emergency Provider Emergency Medicine; PCP Family Medicine Geriatric Medicine
DX: R10.13 Epigastric pain (principal); M19.90 Unspecified osteoarthritis, unspecified site; J44.9 Chronic obstructive pulmonary disease, unspecified; E11.9 Type 2 diabetes mellitus without complications; E78.5 Hyperlipidemia, unspecified; F17.200 Nicotine dependence, unspecified, uncomplicated
CPT/HCPCS: 80048; 80076; 83690; 84484; 85025; 93005; 96361; 96374; 96375; 96376; 99284; J7030; A4216; J2405

== ENCOUNTER 2019-12-31 06:38 | Day surgery (SDC) | payer MEDICAID, SELFPAY ==
--- NOTE | 2019-12-31 | GASB_PTH ---
PATIENT: FLORINDA LOPEZ LOC: EN U#:[id number] AGE/SX: 54/F ROOM: RE12/31/[address]: Dr. Odell Crystal MD : [id number] BED: DIS: 12/31/2019 SPEC #: [id number] RECD: 12/31/19 10:13 STATUS: EILEEN JIMBO #: [id number] SHARON: 12/31/19 00:[address]: Odell Crystal DEPT: SURGICAL PATHOLOGY RECD BY: Mukund Sewell ENTERED: 12/31/19 10:13 SP TYPE: Gastric Bx OTHR DR: Dr. Bret You MD Tissues: Gastric mucous membrane Procedures: Surgery Specimen Level IV HEADER OPERATION: EGD ([facility] [place]) PRE-OP DIAGNOSIS: Abdomen pain TISSUE SUBMITTED: Antrum biopsy for histo and H. pylori MICROSCOPIC DIAGNOSIS Antrum, biopsy: Mild chronic active gastritis. SJ:tin 01/01/20 COMMENT The results of immunohistochemistry for Helicobacter pylori will be reported separately ([id number]). MICROSCOPIC DESCRIPTION Slides are reviewed. GROSS DESCRIPTION Received in fixative is one container labeled with the patient's name and designated antrum biopsy. The specimen consists of multiple irregular fragments of light renee soft tissue that in aggregate measure 0.5 x 0.3 x 0.1 cm. The specimen is totally submitted in one cassette. / SJ:rg 12/31/19 TC:2 CPT: 18511
[2019-12-31 07:01] VITALS: BP 130/64; PULSE 94; RESP 18; TEMP 36.6; O2SAT 99; BMI 31.7
[2019-12-31] MEDS: Lactated Ringers 1,000 ML 100 ML IV (07:13)
[2019-12-31 07:26] LABS: Bedside Glucose 118 mg/dL (70-110)
--- NOTE | 2019-12-31 07:27 | HP.PCM_ITS ---
History of Present Illness Date of Admission: 12/31/19 The patient is a 54 year old F with a history of right upper quadrant pain is been going on for weeks. She is had multiple admissions in the ER. She reports that she is having a lot of pain in the right upper quadrant as well as some nausea. Past Medical/Surgical History - Planned Operation Planned Operative Procedure/s: egd Date of Operative Procedure: 12/31/19 Permit Signed: No S.O.S: No Is This Patient Having a Total Joint: No - Previous Hospitalizations/Surgeries HX Hospitalizations: Yes - pneumonia 3-4 yrs ago HX of Surgeries: 2006 hysterectomy. sinus surgery. heart cath 2016. egd/scope 2019. 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 Hx Heart Attack: No Hx Congestive Heart Failure: No Hx Rheumatic Fever: No Hx Hypertension: Yes - controlled with med Hx Internal Defibrillator: No Hx Pacemaker: No Hx Cardiac Catheterization: Yes - 2016 What facility was last heart cath performed: [facility] Date of last Heart Cath: 2016 Hx Cardiac Surgery/Stents/Etc.: No Hx Stress Test: Yes - 2018 and echo 2018 HX Edema: No Hx Pain in Legs when Walking/Leg Cramps: No - Respiratory Chronic Cough: No HX of Shortness of Breath: Yes - sob with 2 flights of stairs Hoarseness: No Hx Chronic Obstructive Pulmonary Disease (COPD): No Hx Asthma: No Hx Emphysema: No Hx Sleep Apnea: No CPAP: No BIPAP: No Hx Oxygen Use at Home: No Hx Respiratory Tract Infection/Cold (presently): No Do You Snore Loudly (louder than talking or can be heard): No Do You Often Feel Tired/ Fatigued/ Sleepy Dring Daytime?: No Has Anyone Observed You Stop Breathing During Sleep?: No Result (for STOP score): Negative Hx Smoking: Yes - quit 08/2017/ 2-3 ppd for 30 yrs Smoking Status: Current every day smoker - Gastrointestinal Hx Gastroesophageal Reflux: Yes Controlled With Meds: No Hx Gastrointestinal Disorders: No - nausea and vomiting Hx Gastrointestinal Bleed: No Hx Ulcer: No Hx Hiatal Hernia: No Difficulty Chewing/Swallowing: No Recent Onset of Swallowing Problems: No Special diet followed at home: Yes - ada Hx Unplanned Weight Loss of 20#: No - . HX Unplanned Weight Gain of 20#: No - Neurological Hx Seizures: No HX Syncope/Blackout Spells/Unconsciousness: No Hx CVA/Stroke: No Hx Transient Ischemic Attacks (TIA): No Hx Multiple Sclerosis: No Hx Parkinson's Disease: No Hx Head/Neck Injury: No - . Hx Headaches: No - . Hx Back Injury/Pain: Yes - middle to lower back pain prn Recent Onset of Speech Difficulty: No Restless Legs: Yes Does patient have nerve stimulator: No Patient instructed to have device shut off: No Rep notified?: No - Blood Disorder Hx Leukemia: No Bleeding Tendencies: Yes - bruises easily Hx Deep Vein Thrombosis: No Hx High Cholesterol: Yes - on med Blood Transmitted Disease: No Hx Hepatitis: No Hx Cirrhosis: No Hx Anemia: Yes - currently and on iron supplement Hx Blood Disorders: No - Reproduction Is Patient Lactating: No Hx Hysterectomy: Yes Hx Tubal Ligation: No Are You Post Menopause: Yes - Genitourinary Hx Renal Disease: No Hx Dialysis: No - Musculoskeletal Hx Arthritis: Yes Hx Rheumatoid Arthritis: No Hx Gout: No Recent Onset of an Orthopedic Problem: No - Endocrine Hx Diabetes: Yes - on med Insulin: No Thyroid Disease: Yes - on med Hx Steroid Therapy: No - Psycho/Social Hx Substance Use: No Hx Alcohol Use: No Hx Anxiety: No Hx Depression: Yes - on med Mental Illness: No Hx Dementia: No - Miscellaneous Hx Cancer: No Recent Exposure to Contagious Disease: No Active MRSA: No Hx of C-Diff: No Any Loose Teeth: No - lower partial Allergies prochlorperazine edisylate [From Compazine] Allergy (Verified 12/31/19 06:57) Rash prochlorperazine maleate [From Compazine] Allergy (Verified 12/31/19 06:57) Rash Maternal Family History: Family History (Last Reviewed 12/23/19 @ 09:38 by Nicole Valle) Father Myocardial infarction CVA (cerebral vascular accident) Mother Seizures Heart disease Sister Seizures Heart Disease - s/p stents Paternal Family History: Family History (Last Reviewed 12/23/19 @ 09:38 by Nicole Valle) Father Myocardial infarction CVA (cerebral vascular accident) Mother Seizures Heart disease Sister Seizures - - Denies history of lung cancer. - Discharge Is Pt Admitted From a [facility]ci, or a Prison: No Who Could Help: family After D/C, Where Do you Plan to Go: Return Home - Physical Exam Vitals/I&O's: Vital Signs Temp Pulse Resp BP Pulse Ox 97.8 F 94 18 130/64 H 99 12/31/19 07:01 12/31/19 07:01 12/31/19 07:01 12/31/19 07:01 12/31/19 07:01 Oxygen Delivery Method Room Air Weight: 162 lb 9.6 oz Body Mass Index (BMI) 31.7 Finger Stick Blood Glucose 130 General: Alert, Oriented x3 Neck: No JVD Lungs: Normal air movement Cardiovascular: Regular rate Abdomen: Soft, Non-Distended, Tender Laboratory Results 12/31/19 07:05: POC Glucose 118 H Current Medications Lactated Ringer's () 1,000 mls @ 100 mls/hr IV .Q10H RYAN Last Admin: 12/31/19 07:13 Dose: 100 mls/hr Documented by: Assessment/Plan All Active Problems (Last Reviewed 12/23/19 @ 09:38 by Nicole Valle) Hypoglycemia (Acute) Syncope (Acute) History of hysterectomy (Resolved) COPD exacerbation (Resolved) Chest pain (Resolved) Left arm numbness (Resolved) Right lower lobe pneumonia (Resolved) Unstable angina (Resolved) 54-year-old female with right upper quadrant pain 1. Patient has had several ultrasounds and CT scans which were all normal. She is on a PPI but she does continue to smoke and she has a history of ulcers. Recommend EGD to evaluate the stomach lining. 2. I explained endoscopy in detail to the patient. I explained the risks including but not limited to stroke or heart attack with anesthesia, perforation of the GI tract, bleeding, infection. I explained that any of these could necessitate further emergency surgery. The patient understands and all questions were answered sufficiently. The patient wishes to proceed with procedure. Odell Crystal MD Pager: [facility] [address] [place] [address], [address] [place] [address] Office: Essential Procedure Criteria Procedure Essential: Yes Criteria Note: On 11/12/2019 the [place] Department of Health ([facility]) Public Order signed by [facility] Director Jenny Breen M.D., regarding the Management of Non- Essential Surgeries and Procedures for the purpose of preserving Personal Protective Equipment (PPE) and critical hospital capacity and resources within [place] went into effect as of 11/13/2019 at 5:00PM. According to the [facility] Public Order: This action will remain in full force and effect until the State of Emergency declared by the Governor no longer exists or the Director of the [facility] rescinds or modifies this Order.. This [facility] order stated all non-essential or elective surgeries and procedures that utilize PPE should be delayed unless there is undue risk to the current or future health of a patient. After reviewing the aforementioned [facility] Public Order and the patients clinical case, I have determined that the scheduled procedure meets the criteria to go forward. Risk to Patient if Procedure Delayed: Presence of severe symptoms causing an inability to perform ADL's Surgery Risks - Colonoscopy Risks Include but are not Limited To: Risks include but are not limited to: Bleeding, perforation requiring further surgery, inability to complete colonoscopy requiring barium enema.
--- NOTE | 2019-12-31 08:00 | IMM_PTH ---
PATIENT: FLORINDA LOPEZ LOC: EN U#:[id number] AGE/SX: 54/F ROOM: RE12/31/[address]: Dr. Odell Crystal MD : 1965 BED: DIS: 12/31/2019 SPEC #: [id number] RECD: 12/31/19 10:28 STATUS: EILEEN REChris #: [id number] SHARON: 12/31/19 08:[address]: Odell Crystal DEPT: IMMUNOHISTOCHEMISTRY RECD BY: Ekaterina Parra ENTERED: 12/31/19 10:29 SP TYPE: IMMUNO OTHR DR: Dr. Bret You MD Tissues: Stomach, NOS Procedures: H Pylori (initial) PHYSICIAN & INSTITUTION [place] [address] SPECIMEN INFORMATION: Tissue Source: Antrum biopsy Clinical Info: Abdomen pain Specimen Number: [id number] CPT code: 74433 METHODOLOGY: Deparaffinized sections of prefer/formalin-fixed tissue or PAP/DQ stained slides are incubated with monoclonal/polyclonal antibodies/oligonucleotide probes. Localization is made via biotin free immunoperoxidase method. Appropriate controls are performed and reacted as expected. Results on target cell population are indicated in the following table: RESULTS: ANTIBODY / CLONE RESULT H Pylori (polyclonal) negative These tests were developed and their performance characteristics determined by [facility]. They may not have been cleared or approved by the U.S. Food and Drug Administration. The FDA has determined that such clearance or approval is not necessary. INTERPRETATION: Antrum biopsy: Negative for Helicobacter pylori organisms. KRISTY:tin 01/01/20
--- NOTE | 2019-12-31 08:18 | OP.EGD_ITS ---
Patient Name: Gisel Bhatti Procedure Date: 12/31/2019 7:37 AM Date of : 1965 Age: 54 Procedure: Upper GI endoscopy Indications: Epigastric abdominal pain, Abdominal pain in the right upper quadrant Providers: Odell Crystal MD Referring MD: Bret You MD Medicines: Monitored Anesthesia Care Patient Profile: This is a 54 year old female. Refer to note in patient chart for documentation of history and physical. Complications: No immediate complications. Estimated blood loss: Minimal. Procedure: Pre-Anesthesia Assessment: - Prior to the procedure, a History and Physical was performed, and patient medications and allergies were reviewed. The patient's tolerance of previous anesthesia was also reviewed. The risks and benefits of the procedure and the sedation options and risks were discussed with the patient. All questions were answered, and informed consent was obtained. Prior Anticoagulants: The patient has taken no previous anticoagulant or antiplatelet agents. After reviewing the risks and benefits, the patient was deemed in satisfactory condition to undergo the procedure. After obtaining informed consent, the endoscope was passed under direct vision. Throughout the procedure, the patient's blood pressure, pulse, and oxygen saturations were monitored continuously. The gastroscope was introduced through the mouth, and advanced to the fourth part of duodenum. The upper GI endoscopy was accomplished without difficulty. The patient tolerated the procedure well. Scope In: 8:07:56 AM Scope Out: 8:12:17 AM Total Procedure Duration Time 0 hours 4 minutes 21 seconds Findings: The esophagus was normal. The stomach was normal. The examined duodenum was normal. Biopsies were taken with a cold forceps in the gastric antrum for Helicobacter pylori testing. Impression: - Normal esophagus. - Normal stomach. - Normal examined duodenum. - Biopsies were taken with a cold forceps for Helicobacter pylori testing. Recommendation: - Await pathology results. - Perform a HIDA (hepatobiliary iminodiacetic acid) scan at appointment to be scheduled. - Continue present medications. Procedure Code(s): --- Professional --- 95599, Esophagogastroduodenoscopy, flexible, transoral; with biopsy, single or multiple Diagnosis Code(s): --- Professional --- R10.13, Epigastric pain R10.11, Right upper quadrant pain CPT copyright 2017 [employer]. All rights reserved. The codes documented in this report are preliminary and upon cigarette paper tester review may be revised to meet current compliance requirements. Odell Crystal MD 12/31/2019 8:17:54 AM This report has been signed electronically. Number of Addenda: 0 Note Initiated On: 12/31/2019 7:37 AM
--- NOTE | 2019-12-31 08:18 | OP.CCLET_ITS ---
12/31/2019 Bret You MD [address] [place] [address] Re : Upper GI endoscopy procedure for Gisel Bhatti Dear Dr. You This procedure was performed on Tuesday, December 31, 2019. My impressions and recommendations are as follows: Impressions : - Normal esophagus. - Normal stomach. - Normal examined duodenum. - Biopsies were taken with a cold forceps for Helicobacter pylori testing. Recommendations : - Await pathology results. - Perform a HIDA (hepatobiliary iminodiacetic acid) scan at appointment to be scheduled. - Continue present medications. My findings are described in the full procedure note, which is enclosed. If I can be of further assistance, please feel free to contact me at Doctor phone number(s): , Work: . Sincerely, Odell Crystal MD 12/31/2019 8:17:54 AM This report has been signed electronically.
[2019-12-31 08:19] VITALS: BP 110/58; BP 130/64; PULSE 79; RESP 16; TEMP 36.4; O2SAT 99
[2019-12-31 08:20] VITALS: BP 109/57; BP 130/64; PULSE 90; RESP 16; O2SAT 99
[2019-12-31 08:26] VITALS: BP 103/56; BP 130/64; PULSE 79; RESP 16; O2SAT 99
[2019-12-31 08:33] VITALS: BP 104/51; BP 115/63; BP 130/64; PULSE 78; PULSE 85; RESP 16; TEMP 36.5; O2SAT 100
[2019-12-31 08:54] VITALS: BP 130/64
== END 2019-12-31 09:00 | disposition home or self-care (01) ==
LOC: EN 06:39 → AC 06:39
PROVIDERS: PCP Family Medicine Geriatric Medicine; Referring Provider Family Medicine Geriatric Medicine; Visit Provider Surgery
PROC: 0DJ08ZZ Inspection of Upper Intestinal Tract, Via Natural or Artificial Opening Endoscopic (ICD-10-PCS; CPT 43235; principal; 2019-12-31 07:55)
DX: K29.50 Unspecified chronic gastritis without bleeding (principal); I10 Essential (primary) hypertension; K21.9 Gastro-esophageal reflux disease without esophagitis; E78.00 Pure hypercholesterolemia, unspecified; D64.9 Anemia, unspecified; E11.9 Type 2 diabetes mellitus without complications; F32.9 Major depressive disorder, single episode, unspecified; E06.9 Thyroiditis, unspecified; F17.200 Nicotine dependence, unspecified, uncomplicated; Z79.84 Long term (current) use of oral hypoglycemic drugs; Z79.899 Other long term (current) drug therapy
CPT/HCPCS: 43239; 82962; 88305; 88342; J7120

== ENCOUNTER → 2020-01-10 | Outpatient (CLI) | payer MEDICAID, SELFPAY ==
[2019-12-31 07:01] VITALS: BMI 31.7
--- NOTE | 2020-01-10 09:38 | NM_ITS ---
CLINICAL: 54-year-old female with reported history of right upper quadrant abdominal pain. RADIONUCLIDE HEPATOBILIARY SCINTIGRAPHY COMPARISON: CT of the abdomen-pelvis report 12/19/2019, abdominal ultrasound report 12/25/2019 FINDINGS: Following the intravenous administration of 5.5 mCi of 99m Tc Mebrofenin, hepatobiliary images reveal: 1. Relatively prompt and homogeneous radiopharmaceutical concentration is noted by a normal sized liver. No parenchymal defects are identified. 2. Gallbladder activity is identified at 15 minutes post radiopharmaceutical administration. 3. Small intestinal tract is observed by 60 minutes following tracer injection. 4. Washout of the radiopharmaceutical by the hepatic parenchyma appears qualitatively normal. Cholecystokinin (0.02 ug/kg) was administered intravenously over a 30-minute period. The post CCK gallbladder ejection fraction calculated at 20 minutes following Cholecystokinin administration was noted to be 40.0 % (normal greater than 35%). During 30 minutes of post CCK imaging, there is no scintigraphic evidence of reflux of the radiotracer into the common hepatic duct or refilling of the gallbladder. NM/Hepatobilliary Img w/Pharm Int IMPRESSION: 1. NORMAL 99m Tc Mebrofenin hepatobiliary imaging examination with Cholecystokinin. A. A gallbladder ejection fraction calculated to be greater than 35% following the administration of Cholecystokinin makes the probability of functional hepatobiliary disease (gallbladder and/or sphincter of Oddi dyskinesia) and/or organic hepatobiliary disease (chronic acalculous cholecystitis and/or cystic duct syndrome) to be low. (Brittni Sevilla et al, Journal of Nuclear Medicine 32:1695, 1991). Electronically Signed: Adrian Sharif DO at 10:56 EDT Tel , Service support ,
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
== END | disposition home or self-care (01) ==
LOC: NM 09:38
PROVIDERS: PCP Family Medicine Geriatric Medicine; Referring Provider Surgery; Visit Provider Surgery
DX: R10.11 Right upper quadrant pain (principal)
CPT/HCPCS: 78227; A9537; J2805

== ENCOUNTER 2020-01-17 15:28 | Observation (INO) | payer MEDICAID, SELFPAY ==
[2020-01-16 09:50] LABS: Hematocrit 28.4 % (37-47); Hemoglobin 8.8 g/dL (12.0-15.0); Mean Corpuscular Hgb 30.4 pg (27.0-32.0); Mean Corpuscular Volume 98.3 fL (81-99); Mean Platelet Vol. 8.3 fl (6.2-12.0); Platelet Count 500 K/mm3 (150-450); RBC Distribution Width CV 16.5 % (11.6-14.6); RBC Distribution Width SD 59.4 fl (35.1-43.9); Red Blood Count 2.89 M/mm3 (4.2-5.4); White Blood Count 5.2 K/mm3 (4.4-11.0)
[2020-01-16 10:00] LABS: Prothrombin Time (Protime)PT. 12.4 SECONDS (11.7-14.9)
[2020-01-16 10:01] LABS: Partial Thromboplast Time 28.1 Seconds (24.1-36.2)
[2020-01-16 10:11] LABS: Hemoglobin A1c 7.2 % (3.8-5.6)
[2020-01-17] VITALS (33 sets, daily range): BP systolic 107–154; BP diastolic 53–81; PULSE 74–106; RESP 14–22; TEMP 36.5–36.9; O2SAT 90–100; BMI 31.6
--- NOTE | 2020-01-17 06:41 | HP.PCM_ITS ---
Problem List (1) Biliary dyskinesia Status: Acute History of Present Illness Date of Admission: 01/17/20 The patient is a 54 year old F with epigastric and right upper quadrant pain. The patient has been having this pain for months. We tried her on a PPI and Carafate. This did not help. She then had an EGD which was completely normal. A HIDA test was ordered which showed low EF and the CCK replicated her symptoms completely. Past Medical History Past Medical History (Chronic Problems): Chronic Problems (Last Reviewed 12/23/19 @ 09:38 by Nicole Valle) Left carotid bruit (Chronic) Chronic anemia (Chronic) Constipation (Chronic) Hemorrhoid (Chronic) Anemia (Chronic) Arthritis (Chronic) Fibroadenoma of left breast (Chronic) Segmental and somatic dysfunction of pelvic region (Chronic) Segmental and somatic dysfunction of lumbar region (Chronic) Microcalcification of left breast on mammogram (Chronic) Hx of cardiac catheterization (Chronic) Hypothyroidism (Chronic) Depression (Chronic) Insomnia (Chronic) Diabetes type 2, controlled (Chronic) History of tobacco use (Chronic) Dyslipidemia (Chronic) COPD (chronic obstructive pulmonary disease) with emphysema (Chronic) Medical History: Medical History (Last Reviewed 12/23/19 @ 09:38 by Nicole Valle) Constipation (Chronic) K59.00 Hemorrhoid (Chronic) K64.9 Anemia (Chronic) D64.9 Arthritis (Chronic) M19.90 Fibroadenoma of left breast (Chronic) D24.2 Segmental and somatic dysfunction of pelvic region (Chronic) M99.05 Segmental and somatic dysfunction of lumbar region (Chronic) M99.03 Microcalcification of left breast on mammogram (Chronic) R92.0 Hypothyroidism (Chronic) E03.9 Depression (Chronic) F32.9 Insomnia (Chronic) G47.00 Diabetes type 2, controlled (Chronic) E11.9 History of tobacco use (Chronic) Z87.891 Dyslipidemia (Chronic) E78.5 COPD (chronic obstructive pulmonary disease) with emphysema (Chronic) J43.9 COPD exacerbation (Resolved) J44.1 Chest pain (Resolved) R07.9 Left arm numbness (Resolved) R20.0 Right lower lobe pneumonia (Resolved) J18.9 Unstable angina (Resolved) I20.0 Abnormal stress test (Inactive) R94.39 Allergies prochlorperazine edisylate [From Compazine] Allergy (Verified 01/15/20 14:11) Rash prochlorperazine maleate [From Compazine] Allergy (Verified 01/15/20 14:11) Rash Home Medications: Ambulatory Orders Medication Instructions Recorded Atorvastatin Calcium [Lipitor] 40 mg PO DAILY 08/11/14 lisinopril 5 mg tablet 2.5 mg PO DAILY 10/24/17 Levothyroxine [Synthroid] 25 mcg PO DAILY 05/09/18 metFORMIN HCl [Glucophage] 1,000 mg PO BID 03/29/19 Doxepin HCl 50 mg PO QHS 09/27/19 Pioglitazone [Actos] 30 mg PO QHS 09/27/19 Glimepiride [Amaryl] 4 mg PO BID 12/14/19 Pantoprazole Sodium [Protonix] 40 mg PO BID 12/14/19 Paroxetine HCl [Paxil] 20 mg PO QHS 12/14/19 Sucralfate [Carafate] 1 gm PO 4X/DAY 12/14/19 Albuterol IH (ProAir) [Proair Hfa 1 puff INHALATION Q6H PRN PRN 01/15/20 (SP)Vent Pts] Surgical History: Surgical History (Last Reviewed 12/23/19 @ 09:38 by Nicole Valle) Hx of cardiac catheterization (Chronic) Z98.890 History of hysterectomy (Resolved) Z90.710 2001 H/O: hysterectomy Z98.890, Z90.710 2001 heart catheterization 2001 history stereotactic biopsy left breast (Inactive) Onset Date: ~12/22/17 Surgical History: hysterectomy Psychiatric History: Anxiety, Depression 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 Review of Systems Constitutional: Denies: Anorexia, Fever Respiratory: Denies: Cough, Shortness of Breath Gastrointestinal: Reports: Abdominal Pain, Nausea. Denies: Vomiting Genitourinary: Denies: Dysuria Musculoskeletal: Denies: Joint Tenderness Skin: Denies: Pruritis, Rash Hematologic/ Lymphatic: Reports: Anemia VTE Information - Inpt Only VTE Present on Admission: No VTE Mechan Device Prophylaxis: SCD's Patient Problems: Active and Suspected Problems (Last Reviewed 12/23/19 @ 09:38 by Nicole Valle) Biliary dyskinesia (Acute) - Physical Exam Vitals/I&O's: Body Mass Index (BMI) 31.7 Finger Stick Blood Glucose 130 General: Alert, Oriented x3 Neck: No JVD Lungs: Normal air movement Cardiovascular: Regular rate, Regular Rhythm Abdomen: Soft, Non-Distended, Tender - Tender in the right upper quadrant no guarding or rebound Microbiology Past 72 Hours 01/16/20 Unknown Mucosa - Nasopharyngeal Coronavirus COVID-19 PCR - Final Laboratory Results 01/16/20 09:21: WBC 5.2, RBC 2.89 L, Hgb 8.8 L, Hct 28.4 L, MCV 98.3, MCH 30.4, MCHC 31.0 L, RDW Std Deviation 59.4 H, RDW Coeff of Autumn 16.5 H, Plt Count 500 H, MPV 8.3 01/16/20 09:21: PT 12.4, INR 1.0, APTT 28.1 01/16/20 09:21: Hemoglobin A1c 7.2 H 01/17/20 08:10: COVID-19 (TARI) Cancelled Current Medications Cefotetan Disodium 2 gm/ (Sodium Chloride) 100 mls @ 200 mls/hr IV PREOP ONE Stop: 01/17/20 07:29 Assessment/Plan All Active Problems (Last Reviewed 12/23/19 @ 09:38 by Nicole Valle) Biliary dyskinesia (Acute) Hypoglycemia (Acute) Syncope (Acute) History of hysterectomy (Resolved) COPD exacerbation (Resolved) Chest pain (Resolved) Left arm numbness (Resolved) Right lower lobe pneumonia (Resolved) Unstable angina (Resolved) 54-year-old female with biliary dyskinesia 1. After extensive work-up the patient had a HIDA exam which showed a low EF. She is reports that the CCK replicated her symptoms that she has been having. I discussed laparoscopic cholecystectomy with her and the fact that this may not get rid of the pain if it is not her biliary dyskinesia that is causing it and she understands would like to proceed. 2. I discussed the procedure in detail with the patient. I discussed the risks, benefits, and alternatives of the procedure. I discussed the risks including but not limited to bleeding, infection, injury to surrounding organs such as the liver, bile duct, bowels. I did discuss the possibility of having to convert to an open procedure as well as the possibility that if any injuries occurred this may necessitate further surgery at a tertiary care center. 3. We discussed the current risks associated with COVID-19. While it is understood that there is a community spread of COVID-19, the risk of fady COVID-19 while at [facility] ([facility]) is very low; however, the risk cannot be completely mitigated because of the community spread of the disease. We discussed in detail the risk of exposure to and/or potential harm posed by the COVID-19 virus with having a surgery/procedure at this time versus the risk of delaying the surgery/procedure. It is not possible to know either the risk of delaying the surgery or procedure or chance of getting an infection with perfect accuracy, but a joint decision was made to proceed at this time with the scheduled surgery/procedure as indicated on the consent form. Patient was notified that we will need to comply with any screening or testing [facility] wishes to perform or that surgery may be delayed for any positive results. Odell Crystal MD Pager: [facility] [address] [place] [address] [address] [place] [address] Office:
[2020-01-17] MEDS: Lactated Ringers 1,000 ML 100 ML IV ×2 (07:07→17:35)
[2020-01-17 07:16] LABS: Bedside Glucose 127 mg/dL (70-110)
--- NOTE | 2020-01-17 08:30 | GALL_PTH ---
PATIENT: FLORINDA LOPEZ LOC: PCU U#:[id number] AGE/SX: 54/F ROOM: [facility] RE01/17/[address]: Dr. Deborah Mares MD : 1965 BED: 1 DIS: 01/18/2020 SPEC #: [id number] RECD: 01/17/20 09:49 STATUS: EILEEN CHOI #: [id number] SHARON: 01/17/20 08:[address]: Odell Crystal DEPT: SURGICAL PATHOLOGY RECD BY: Ez Ricketts ENTERED: 01/17/20 10:10 SP TYPE: DELROY STOVER DR: Dr. Bret You MD Tissues: Gallbladder, NOS Procedures: Surgery Specimen Level III HEADER OPERATION: Laparoscopic cholecystectomy with IOC PRE-OP DIAGNOSIS: Biliary dyskinesia TISSUE SUBMITTED: Gallbladder MICROSCOPIC DIAGNOSIS Gallbladder, cholecystectomy: Chronic cholecystitis. AM:tin 01/21/20 MICROSCOPIC DESCRIPTION Slides are reviewed. GROSS DESCRIPTION Received is one container labeled with the patient's name and designated gallbladder. The specimen consists of a gallbladder measuring 6 cm in length and up to 2 cm in diameter. The external surface is pink-renee, smooth and glistening for the most part. Focally it is granular, hemorrhagic and contains cautery artifact. The gallbladder contains green-yellow mucoid bile. No stones are identified in the container or in the gallbladder. The mucosa is bile-stained and without any mass lesions. The gallbladder wall measures up to 0.2 cm in thickness. Psychiatry Physician sections from the gallbladder and the cystic duct are submitted in one cassette. / SJ:tin 01/17/20 TC:3 CPT: 31065
--- NOTE | 2020-01-17 08:32 | RAD_ITS ---
STUDY: CHOLANGIOGRAM REASON FOR EXAM: Female, 54 years old. Flank pain Cholecystectomy. TECHNIQUE: Intraoperative fluoroscopy. 1 CINE RUN, 23 SECONDS, 12.61 MGY COMPARISON: None. FINDINGS: There is opacification of cystic duct and common bile duct. No filling defects are seen the common bile duct to suggest retained stone. Contrast flows easily into the duodenum. RAD/Cholangiogram/ O R,Initial IMPRESSION: There is no evidence of retained stones in the common bile duct. Electronically Signed: Fide Karimi, at 11:34 EDT Tel , Service support ,
[2020-01-17] MEDS: Bupiv/Epi 0.25% 30 ML Vial (08:45)
--- NOTE | 2020-01-17 09:33 | OP.PCM_ITS ---
Problem List (1) Biliary dyskinesia Status: Acute Report of Operation Date of Procedure: 01/17/20 Pre-Operative Diagnosis: Biliary dyskinesia Post-Operative Diagnosis: Same Surgery/Procedure Performed:: Laparoscopic cholecystectomy with cholangiogram Description of Surgical Findings:: The patient had a dilated common bile duct on cholangiogram with no filling defect. Specimen's removed: Gallbladder with contents Description of Procedure: After obtaining informed consent patient was brought back to the operating room. General anesthesia was induced. The abdomen was prepped and draped in usual sterile fashion. A small midline incision was made superior to the umbilicus and deepened to the level of fascia. The fascia was elevated and incised. Next the peritoneum was elevated and incised in the same fashion. Finger sweep was performed and the Elizalde trocar was placed into the abdomen. The balloon was inflated. The abdomen was inflated to 15 mmHg. Next a camera was introduced into the abdomen and the abdomen was inspected. Next under direct visualization three 5-mm ports were placed one subxiphoid and 2 subcostal. Next the gallbladder was elevated and retracted toward the right shoulder. The peritoneum was stripped from the gallbladder. The infundibulum was located and retracted laterally. Next the triangle of Calot was dissected and the cystic duct and cystic artery were identified. Cholangiograms were performed. The Joseph clamp was used to clamp across the infundibulum and the catheter needle was inserted into the gallbladder. Under fluoroscopy contrast was instilled into the gallbladder and the common duct, cystic duct as well as proximal hepatic ducts were identified. The patient had a dilated extrahepatic common bile duct. There is a possibility that this is a choledochocyst. There was good filling of the duodenum. There were no filling defects noted in the common bile duct. The clamp was removed as well as the needle and the infundibulum was grasped once more. Three hemolock clips were placed across the cystic duct. The cystic duct was then divided leaving 2 clips on the stump. The cystic artery was clipped and divided in the same fashion. The hook cautery was then used to take the gallbladder off of the gallbladder bed. Hemostasis was obtained. Gallbladder fossa was irrigated and no active bleeding or bile leakage was noted. Next the camera was introduced in the subxiphoid port. An Endopouch bag was placed through the umbilical port and the gallbladder was placed into it. The gallbladder was then removed through the umbilical incision. The camera was then reinserted through the umbilical port. The gallbladder fossa was inspected once more and noted to be hemostatic with no leaking bile. The abdomen was suctioned dry. The 5 mm ports were removed under direct visualization. The umbilical port was then removed and the air was removed from the abdomen. Next using an 0 Vicryl suture the umbilical fascia was closed in a [id number] fashion. The umbilical port site was irrigated local anesthetic was administered to all the incisions. All the incisions were closed with interrupted subcuticular 4-0 Monocryl sutures followed by Steri- Strips and dressings. The patient was awoken and taken to PACU in stable condition. - Admit VTE Documentation VTE Mechan Device Prophylaxis: SCD's
--- NOTE | 2020-01-17 09:35 | PCM.DC.GB ---
Discharge Diet: Light diet - advance as tolerated Discharge Activity: Return to Normal Activity, May Not Drive - for 2-3 days or while taking narcotic pain medicataions., - - Do not drive, work heavy equipment or sign legal documents for 24 hours. May shower in (days): 1 - with the bandage in place. Lifting Restrictions: 20 lbs for 2 weeks Additional Activity Instructions:: Pain medication may cause nausea. You should typically eat light foods as you take your pain medications. Pain medication may also cause constipation. If this is a problem for you, please discuss with your doctor. Call your doctor if your incision/area has: Continuous Slow Oozing, Sudden Increased Bleeding, Increased Pain/ Swelling, Increased Redness, Foul Smelling Discharge, Fever of 101 or Higher Call your doctor if you observe: Fever of 101 or Higher Suture Line Care: Avoid Pulling/Pushing, Avoid Pinching/Bending Additional Dressing/Incision Instructions:: Leave operative bandaids on for 2 days. When you remove dressing, leave Steri-Strips on until your follow-up appointment, or until the Steri-Strips fall off on their own. Allergies/Adverse Reactions: Allergies prochlorperazine edisylate [From Compazine] Allergy (Verified 01/15/20 14:11) Rash prochlorperazine maleate [From Compazine] Allergy (Verified 01/15/20 14:11) Rash Medications to take at Discharge Atorvastatin Calcium [Lipitor] 40 mg PO DAILY 08/11/14 lisinopril 5 mg tablet 2.5 mg PO DAILY 10/24/17 Levothyroxine [Synthroid] 25 mcg PO DAILY 05/09/18 metFORMIN HCl [Glucophage] 1,000 mg PO BID 03/29/19 Doxepin HCl 50 mg PO QHS 09/27/19 Pioglitazone [Actos] 30 mg PO QHS 09/27/19 Glimepiride [Amaryl] 4 mg PO BID 12/14/19 Pantoprazole Sodium [Protonix] 40 mg PO BID 12/14/19 Paroxetine HCl [Paxil] 20 mg PO QHS 12/14/19 Sucralfate [Carafate] 1 gm PO 4X/DAY 12/14/19 Albuterol IH (ProAir) [Proair Hfa (SP)Vent Pts] 1 puff INHALATION Q6H PRN PRN 01/15/20 Oxycodone HCl/Acetaminophen [Percocet 5-325 mg Tablet] 1 - 2 tab PO Q6H PRN 5 Days #30 tablet 01/17/20 The following prescriptions were given: Oxycodone HCl/Acetaminophen [Percocet 5-325 mg Tablet] 1 - 2 tab PO Q6H PRN 5 Days #30 tablet PRN Reason: Pain Score 4-10/10 Transmission Status: Sent to [facility] Primary Care Physician: Bret You Chi, MD [Primary Care Provider] - Test Results: Test results from this visit will be discussed in further detail at your follow-up appointment, if applicable. Please Follow Up With: Odell Crystal MD When: Please call to schedule 2 week follow up appointment. [phone]
[2020-01-17 10:15] LABS: Bedside Glucose 193 mg/dL (70-110)
--- NOTE | 2020-01-17 10:17 | EKG12_ITS ---
Test Reason : POST OP Blood Pressure : / mmHG Vent. Rate : 072 BPM Atrial Rate : 072 BPM P-R Int : 188 ms QRS Dur : 072 ms QT Int : 362 ms P-R-T Axes : 047 047 053 degrees QTc Int : 396 ms Normal sinus rhythm with sinus arrhythmia Normal ECG Confirmed by ROSEY PEDROZA, ZOYA ([id number]), scientific publications editor ZAHIRA BARRIENTOS ([id number]) on 01/23/2020 3:17:13 PM Referred By: Odell Crystal Confirmed By:ZOYA CURRIE MD
[2020-01-17] MEDS: Nitroglycerin (INPATIENT USE) 0.4 MG TAB.SUBL SUBLINGUAL (11:08)
[2020-01-17] MEDS: Aspirin 81 MG TAB.CHEW 324 MG PO ×2 (11:12→11:15)
--- NOTE | 2020-01-17 12:28 | CON.PCM_ITS ---
Reason for Consult Date of Consultation: 01/17/20 Reason for Consultation: Chest pain abnormal cardiac enzymes History of Present Illness: The patient is a 54 year old F with no previously documented coronary artery disease but a history of hypertension and diabetes mellitus who presented today for a cholecystectomy. The patient postoperatively started experiencing chest discomfort. An EKG was done which did not demonstrate any acute changes. Cardiac troponin enzymes were obtained which were noted to be minimally abnormal and cardiology was called for further evaluation and management. Patient currently is free of any chest discomfort. She did not have any formal preopera tive cardiovascular work-up. However, in 2017 she underwent a cardiac catheterization which demonstrated essentially normal coronary arteries. She also underwent a stress test in 2018 which demonstrated no evidence of ischemia on her pharmacologic stress test as well as an echocardiogram which demonstrated preserved ejection fraction. She apparently has been compliant with her medications and she has not had any further chest discomfort previous to this. [] Past Medical History Allergies/Adverse Reactions: Allergies prochlorperazine edisylate [From Compazine] Allergy (Verified 01/15/20 14:11) Rash prochlorperazine maleate [From Compazine] Allergy (Verified 01/15/20 14:11) Rash Home Medications: Ambulatory Orders Medication Instructions Recorded Atorvastatin Calcium [Lipitor] 40 mg PO DAILY 08/11/14 lisinopril 5 mg tablet 2.5 mg PO DAILY 10/24/17 Levothyroxine [Synthroid] 25 mcg PO DAILY 05/09/18 metFORMIN HCl [Glucophage] 1,000 mg PO BID 03/29/19 Doxepin HCl 50 mg PO QHS 09/27/19 Pioglitazone [Actos] 30 mg PO QHS 09/27/19 Glimepiride [Amaryl] 4 mg PO BID 12/14/19 Pantoprazole Sodium [Protonix] 40 mg PO BID 12/14/19 Paroxetine HCl [Paxil] 20 mg PO QHS 12/14/19 Sucralfate [Carafate] 1 gm PO 4X/DAY 12/14/19 Albuterol IH (ProAir) [Proair Hfa 1 puff INHALATION Q6H PRN PRN 01/15/20 (SP)Vent Pts] Oxycodone HCl/Acetaminophen 1 - 2 tab PO Q6H PRN 5 Days #30 tab 01/17/20 [Percocet 5-325 mg Tablet] Past Medical History (Chronic Problems): Chronic Problems (Last Reviewed 12/23/19 @ 09:38 by Nicole Valle) Left carotid bruit (Chronic) Chronic anemia (Chronic) Constipation (Chronic) Hemorrhoid (Chronic) Anemia (Chronic) Arthritis (Chronic) Fibroadenoma of left breast (Chronic) Segmental and somatic dysfunction of pelvic region (Chronic) Segmental and somatic dysfunction of lumbar region (Chronic) Microcalcification of left breast on mammogram (Chronic) Hx of cardiac catheterization (Chronic) Hypothyroidism (Chronic) Depression (Chronic) Insomnia (Chronic) Diabetes type 2, controlled (Chronic) History of tobacco use (Chronic) Dyslipidemia (Chronic) COPD (chronic obstructive pulmonary disease) with emphysema (Chronic) Surgical History: hysterectomy Psychiatric History: Anxiety, Depression 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 Smoking Status: Former smoker Tobacco Use: Non-smoker Alcohol: None Drugs: None Review of Systems - Review of Systems General: Denies: Fever, Night Sweats, Fatigue HEENT: Denies: Vision Change Cardiovascular: Reports: Chest Discomfort. Denies: Shortness of Breath, Orthopnea, PND, Peripheral Edema, Palpitations, Lightheadedness, Dizziness, Near Syncope, Syncope Respiratory: Denies: Cough, Sputum Production, Hemoptysis Gastrointestinal: Reports: Abdominal Discomfort. Denies: Hematemesis, Hematochezia, Melena Genitourinary: Denies: Dysuria, Hematuria Skin: Denies: Rash Psychiatric: Reports: Anxiety Endocrine: Denies: Unexplained Weight Loss Hematologic/ Lymphatic: Denies: Anemia Subjectve: Pleasant lady in mild pain otherwise no distress Objective: Vital Signs Temp Pulse Resp BP Pulse Ox 98.4 F 91 18 129/57 H 100 01/17/20 10:13 01/17/20 12:15 01/17/20 12:15 01/17/20 12:15 01/17/20 12:15 Oxygen Flow Rate (L/min) 4 Oxygen Delivery Method Nasal Cannula Weight: 161 lb 13.109 oz Body Mass Index (BMI) 31.6 Finger Stick Blood Glucose 130 Intake and Output for Last 24 Hours 01/15/20 01/16/20 01/17/20 23:59 23:59 23:59 Intake Total 100 / 100 Balance 100 / 100 General: Awake, Alert, Oriented x 3 HEENT: PERRL, EOMI, Sclera Non Icteric Neck: Supple, Good ROM, No Lymph Node Enlargement Lungs: Clear to auscultation Cardiovascular: Regular Rhythm, Normal S1, Normal S2, No Murmurs, No Rubs, No Gallops Vascular: No Carotid Bruits, Normal Femoral Pulses, Normal Radial Pulses, Normal Dorsalis Pedal Pulse, Normal Posterior Tibial Pulses Abdomen: Bowel Sounds Present, Soft, Non Tender, No HSM, No Organomegaly Extremities: No Cyanosis, No Clubbing, No edema Musculoskeletal: No Erythema Skin: No Rashes Lymphatic: No Lymph Node Enlargement Neurological: No Focal Motor or Sensory Deficit Psych/Mental Status: Appropriate 01/17/20 10:31: Troponin I 0.052 H Rhythm: EKG: Normal sinus rhythm with no acute changes rate of 72 bpm ECHO: Stress Test: Cardiac Cath: PCI: CT Surgery: Holter monitor: EPS: PPM: CXR: Chest CT Scan: Assessment/Plan 1. Postoperative chest discomfort. * Etiology of the above is not entirely clear. Her EKG is normal. She does have a mildly abnormal troponin enzyme. My recommendation is to repeat the cardiac troponin III hours after the first. The fact that 3 years ago she had a cardiac catheterization which demonstrated no obstructive coronary disease is reassuring. A subsequent stress test is also been reassuring with preserved ejection fraction. * She does have cardiac risk factors however. * Her second troponin is noted to be still elevated and thus I would recommend admission for serial enzymes. Depending on the level in the morning further recommendations will be made * It is likely that the troponin elevation may be demand ischemia mediated. 2. Hypertension * Her blood pressure is under good control at this time I would not recommend we make any changes. * 3. Anemia * Patient is noted to be rather significantly anemic. The etiology at this particular time is not exactly clear. * * * Thank you for allowing me to participate in the care of your patient. Above discussed with anesthesiologist who consulted me.
--- NOTE | 2020-01-17 13:30 | EKG12_ITS ---
Test Reason : POST OP Blood Pressure : / mmHG Vent. Rate : 083 BPM Atrial Rate : 083 BPM P-R Int : 192 ms QRS Dur : 084 ms QT Int : 356 ms P-R-T Axes : 052 039 043 degrees QTc Int : 418 ms Normal sinus rhythm Normal ECG Confirmed by ROSEY PEDROZA, ZOYA ([id number]), publication editor ZAHIRA BARRIENTOS ([id number]) on 01/23/2020 3:16:52 PM Referred By: Odell Crystal Confirmed By:ZOYA CURRIE MD
--- NOTE | 2020-01-17 14:45 | HP.PCM_ITS ---
History of Present Illness Date of Admission: 01/17/20 Chief Complaint: chest pain post op The patient is a 54 year old F with an extensive past medical history as outlined. She was admitted for same-day surgery on 01/17/2020 by general surgery for outpatient cholecystectomy. She had been complaining of epigastric and right upper quadrant pain for several months and pain had not improved with PPI and Carafate. EGD done was normal and HIDA test done showed low EF and CCK replicated her symptoms completely. She was therefore admitted for laparoscopic cholecystectomy on outpatient basis. She had said procedure on 01/17/2020. Postop course was complicated by chest pain. Stat troponin done was 0.052. EKG done showed no acute ST changes. Repeat troponin had trended up to 0.275. Cardiology was consulted. General surgery asked that hospitalist admit to their service for management for non-STEMI. Patient was seen in PACU after surgery. She had no complaints. Chest pain hadnt recurred. Review of systems was otherwise negative. Labs and vitals reviewed [] Past Medical History Past Medical History (Chronic Problems): Chronic Problems (Last Reviewed 12/23/19 @ 09:38 by Nicole Valle) Left carotid bruit (Chronic) Chronic anemia (Chronic) Constipation (Chronic) Hemorrhoid (Chronic) Anemia (Chronic) Arthritis (Chronic) Fibroadenoma of left breast (Chronic) Segmental and somatic dysfunction of pelvic region (Chronic) Segmental and somatic dysfunction of lumbar region (Chronic) Microcalcification of left breast on mammogram (Chronic) Hx of cardiac catheterization (Chronic) Hypothyroidism (Chronic) Depression (Chronic) Insomnia (Chronic) Diabetes type 2, controlled (Chronic) History of tobacco use (Chronic) Dyslipidemia (Chronic) COPD (chronic obstructive pulmonary disease) with emphysema (Chronic) Medical History: Medical History (Last Reviewed 12/23/19 @ 09:38 by Nicole Valle) Constipation (Chronic) K59.00 Hemorrhoid (Chronic) K64.9 Anemia (Chronic) D64.9 Arthritis (Chronic) M19.90 Fibroadenoma of left breast (Chronic) D24.2 Segmental and somatic dysfunction of pelvic region (Chronic) M99.05 Segmental and somatic dysfunction of lumbar region (Chronic) M99.03 Microcalcification of left breast on mammogram (Chronic) R92.0 Hypothyroidism (Chronic) E03.9 Depression (Chronic) F32.9 Insomnia (Chronic) G47.00 Diabetes type 2, controlled (Chronic) E11.9 History of tobacco use (Chronic) Z87.891 Dyslipidemia (Chronic) E78.5 COPD (chronic obstructive pulmonary disease) with emphysema (Chronic) J43.9 COPD exacerbation (Resolved) J44.1 Chest pain (Resolved) R07.9 Left arm numbness (Resolved) R20.0 Right lower lobe pneumonia (Resolved) J18.9 Unstable angina (Resolved) I20.0 Abnormal stress test (Inactive) R94.39 Allergies prochlorperazine edisylate [From Compazine] Allergy (Verified 01/15/20 14:11) Rash prochlorperazine maleate [From Compazine] Allergy (Verified 01/15/20 14:11) Rash Home Medications: Ambulatory Orders Medication Instructions Recorded Atorvastatin Calcium [Lipitor] 40 mg PO DAILY 08/11/14 lisinopril 5 mg tablet 2.5 mg PO DAILY 10/24/17 Levothyroxine [Synthroid] 25 mcg PO DAILY 05/09/18 metFORMIN HCl [Glucophage] 1,000 mg PO BID 03/29/19 Doxepin HCl 50 mg PO QHS 09/27/19 Pioglitazone [Actos] 30 mg PO QHS 09/27/19 Pantoprazole Sodium [Protonix] 40 mg PO BID 12/14/19 Paroxetine HCl [Paxil] 20 mg PO QHS 12/14/19 Sucralfate [Carafate] 1 gm PO 4X/DAY 12/14/19 Albuterol IH (ProAir) [Proair Hfa 1 puff INHALATION Q6H PRN PRN 01/15/20 (SP)Vent Pts] Famotidine 40 mg PO QHS 01/17/20 Surgical History: Surgical History (Last Reviewed 12/23/19 @ 09:38 by Nicole Valle) Hx of cardiac catheterization (Chronic) Z98.890 History of hysterectomy (Resolved) Z90.710 2001 H/O: hysterectomy Z98.890, Z90.710 2001 heart catheterization 2001 history stereotactic biopsy left breast (Inactive) Onset Date: ~12/22/17 Surgical History: hysterectomy Psychiatric History: Anxiety, Depression 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 Review of Systems Constitutional: Denies: Chills, Fever, Weight Change HEENT: Denies: Head Aches, Sinus Congestion, Sinus Drainage Cardiovascular: Denies: Chest Pain, Palpitations Respiratory: Denies: Cough, Shortness of breath at rest, Sputum production Gastrointestinal: Denies: Abdominal Pain, Nausea, Vomiting Genitourinary: Denies: Dysuria Musculoskeletal: Denies: Joint Pain, Joint Tenderness Skin: Denies: Rash, Wounds Neurological: Denies: Numbness, Tingling, Focal weakness Psychiatric: Denies: Anxiety, Depression, Homicidal Ideations, Suicidal Ideations Hematologic/ Lymphatic: Denies: Easy Bruising, Easy Bleeding VTE Information - Inpt Only VTE Present on Admission: No VTE Pharm Prophylaxis ordered?: Yes Patient Problems: Active and Suspected Problems (Last Reviewed 12/23/19 @ 09:38 by Nicole Valle) Biliary dyskinesia (Acute) - Physical Exam Vitals/I&O's: Vital Signs Temp Pulse Resp BP Pulse Ox 98.4 F 103 H 16 133/74 H 99 01/17/20 10:13 01/17/20 14:30 01/17/20 14:30 01/17/20 14:30 01/17/20 14:30 Oxygen Flow Rate (L/min) 2 Oxygen Delivery Method Nasal Cannula Weight: 161 lb 13.109 oz Body Mass Index (BMI) 31.6 Finger Stick Blood Glucose 130 Intake and Output for Last 24 Hours 01/15/20 01/16/20 01/17/20 23:59 23:59 23:59 Intake Total 100 / 100 Balance 100 / 100 General: Alert, Oriented x3, Cooperative, No apparent distress HEENT: Atraumatic, PERRLA, EOMI, Normocephalic Oral: Moist Mucosa Neck: Supple, No JVD, Negative Carotid Bruits Lungs: Clear to auscultation, Normal air movement, No rhonchi, No wheeze, No rales Cardiovascular: Regular rate, Regular Rhythm, Normal S1, Normal S2, No murmurs Abdomen: Bowel Sounds Present, Soft, - - mild tenderness at laparoscopic sites. Surgical site has clean dressing in place Extremities: No edema, Capillary Refill Less than 3 Seconds Skin: No rashes, No breakdown Musculoskeletal: No Tenderness to Palpation of Joints or Extremities Lymphatic: No Cervical, Supraclavicular, or Inguinal Adenopathy Neurological: Cranial nerves II-XII grossly intact Psych/Mental Status: Normal Affect, Appropriate, Alert and oriented to time, place, person, mood and affect Microbiology Past 72 Hours 01/16/20 Unknown Mucosa - Nasopharyngeal Coronavirus COVID-19 PCR - Final Laboratory Results 01/17/20 06:53: POC Glucose 127 H 01/17/20 10:11: POC Glucose 193 H 01/17/20 10:31: Troponin I 0.052 H 01/17/20 13:40: Troponin I 0.275 H Diagnostic Data Cholangiogram 01/17/20 08:32 IMPRESSION: There is no evidence of retained stones in the common bile duct. Electronically Signed: Fide Karimi, at 11:34 EDT Tel , Service support , Current Medications Lactated Ringer's () 1,000 mls @ 100 mls/hr IV .Q10H [facility] Last Admin: 01/17/20 07:07 Dose: 100 mls/hr Documented by: Lactated Ringer's () 1,000 mls @ 15 mls/hr IV .Q48H [facility] Assessment/Plan All Active Problems (Last Reviewed 12/23/19 @ 09:38 by Nicole Valle) Biliary dyskinesia (Acute) Hypoglycemia (Acute) Syncope (Acute) History of hysterectomy (Resolved) COPD exacerbation (Resolved) Chest pain (Resolved) Left arm numbness (Resolved) Right lower lobe pneumonia (Resolved) Unstable angina (Resolved) 54 y/o admitted o/a of chest pain after laparoscopic cholecystectomy 1. Elevated troponins * Troponin was 0.052 and went up to 0.275. * EKG showed no acute ST changes. * admit to PCU with telemetry * cardiology consulted * give SL nitroglycerin and PO aspirin; high intensity statin * 2. Biliary dyskinesia status post cholecystectomy. * today is POD 0 * general surgery on board * management as per general surgery * 3. Diabetes mellitus * A1c 7.2. * On glimepiride and p.o. glitazone. Also on metformin. * Will hold metformin for now. Insulin sliding scale. Accu-Cheks AC at bedtime. * 4. Hypertension: On lisinopril. 5. Anemia: Hemoglobin is 8.8. Baseline hemoglobin is around 8-9. Will monitor. 6. Hypothyroidism: On Synthroid. 7. Hyperlipidemia: Statin. DVT prophylaxis: SCDs CODE STATUS: full code * Patient counseled extensively about different types of CODE STATUS including full code, DNR CCA and DNR CCA. Patient elects to be full code. Total [id number] time 16 minutes. Inpatient E&M: 03107 Init Hosp L3 Procedures: 93390 Advncd Care Plan 30 Min
--- NOTE | 2020-01-17 15:29 | PN_ITS ---
Progress Note The patient began having some chest pain in recovery. Troponins were checked and were very mildly elevated. She was kept in PACU and troponins were checked 3 hours later and they were more elevated. The patient was admitted to the hospitalist service to the PCU for observation. Cardiology saw the patient in PACU and will continue to follow. Odell Crystal MD Pager: [facility] [address] [place] [address], [address] [place] [address] Office: STROKE Vital Signs/Narrative: Vital Signs Pulse Resp BP Pulse Ox 01/17/20 15:15 93 16 121/70 H 100 01/17/20 15:00 98 16 116/55 L 100 01/17/20 14:45 90 16 127/57 H 100 01/17/20 14:30 103 H 16 133/74 H 99 01/17/20 14:15 89 16 136/63 H 99 01/17/20 14:00 87 16 129/60 H 100 01/17/20 13:45 88 18 131/63 H 97 01/17/20 13:30 90 16 131/57 H 99 01/17/20 13:15 83 16 129/57 H 100 01/17/20 13:08 106 H 16 122/58 H 90 01/17/20 12:45 93 14 124/60 H 100 01/17/20 12:30 91 14 126/61 H 100 01/17/20 12:15 91 18 129/57 H 100 01/17/20 12:00 87 18 143/70 H 100 01/17/20 11:44 86 18 134/55 H 100 01/17/20 11:30 79 18 127/56 H 99
[2020-01-17 16:56] LABS: Bedside Glucose 109 mg/dL (70-110)
[2020-01-17] MEDS: Acetaminophen 325 MG Tablet 650 MG PO (19:51)
[2020-01-17] MEDS: Morphine 2 MG/ML Syringe IV ×2 (19:52→23:07)
[2020-01-17] MEDS: Sucralfate 1 GM Tablet PO (21:36)
[2020-01-17] MEDS: Pioglitazone Hydrochloride 30 MG Tablet PO (21:36)
[2020-01-17] MEDS: DOXEPIN HCL 50 MG CAPSULE PO (21:37)
[2020-01-17] MEDS: Atorvastatin Calcium 40 MG Tablet PO (21:37)
[2020-01-17] MEDS: Pantoprazole Sodium 40 MG Tablet PO (21:38)
[2020-01-17] MEDS: Paroxetine 20 MG Tablet PO (21:39)
[2020-01-17 21:45] LABS: Bedside Glucose 119 mg/dL (70-110)
[2020-01-18 03:00] VITALS: PULSE 106
[2020-01-18] MEDS: Lactated Ringers 1,000 ML 100 ML IV (03:08)
[2020-01-18] MEDS: Morphine 2 MG/ML Syringe IV (03:11)
[2020-01-18 03:15] VITALS: BP 107/64; PULSE 94; RESP 18; TEMP 36.8; O2SAT 96
[2020-01-18 05:41] LABS: Absolute Lymphocyte Count 1.01 X10^3/uL (0.83-4.51); Absolute Neutrophil Count 2.7 X10^3/uL (2.0-7.7); Basophil# 0.02 X10^3/uL; Basophil% 0.5 % (0-1); Eosinophil# 0.11 X10^3/uL; Eosinophils% 2.6 % (0-5); Hematocrit 23.8 % (37-47); Hemoglobin 7.6 g/dL (12.0-15.0); Lymphocyte # 1.01 X10^3/ul (4.0); Lymphocyte % 23.7 % (19-41); Mean Corp Hgb Conc 31.9 g/dL (32-36); Mean Corpuscular Hgb 31.1 pg (27.0-32.0); Mean Corpuscular Volume 97.5 fL (81-99); Mean Platelet Vol. 8.4 fl (6.2-12.0); Monocyte# 0.43 X10^3/uL; Monocyte% 10.1 % (0-10); NRBC Flagged by Analyzer 0 % (0-5); Neutrophil # 2.67 X10^3/uL (2.7-7.7); Neutrophil % 62.6 % (47-70); Platelet Count 425 K/mm3 (150-450); RBC Distribution Width CV 16.2 % (11.6-14.6); RBC Distribution Width SD 57.8 fl (35.1-43.9); Red Blood Count 2.44 M/mm3 (4.2-5.4); White Blood Count 4.3 K/mm3 (4.4-11.0)
--- NOTE | 2020-01-18 05:55 | EKG12_ITS ---
Test Reason : AM EKG Blood Pressure : / mmHG Vent. Rate : 084 BPM Atrial Rate : 084 BPM P-R Int : 184 ms QRS Dur : 080 ms QT Int : 360 ms P-R-T Axes : 065 052 075 degrees QTc Int : 425 ms Normal sinus rhythm Normal ECG Confirmed by ROSEY PEDROZA, ZOYA ([id number]), digital editor ZAHIRA BARRIENTOS ([id number]) on 01/23/2020 2:53:54 PM Referred By: Odell Crystal Confirmed By:ZOYA CURRIE MD
[2020-01-18 05:59] LABS: Anion Gap 5 (5-15); BUN 16 mg/dL (7-18); BUN/Creat Ratio 16.2 RATIO (10-20); Calcium,Total 8.8 mg/dL (8.5-10.1); Chloride 105 mmol/L (98-107); Creatinine, Serum 0.99 mg/dL (0.55-1.02); EST Glomerular Filtration Rate 62 mL/min (>60); Est Glom Filt Rate - Afr Amer 75 mL/min (>60); Estimated Creatinine Clearance 46.66 ml/min; Ferritin 9 ng/mL (8-252); Glucose 117 mg/dL (74-106); Iron 72 ug/dL (50-170); Iron Binding Capacity,Total 411 ug/dL (250-450); PERCENT IRON SATURATION 17.5 % (15.0-55.0); Potassium 4.1 mmol/L (3.5-5.1); Sodium Level 138 mmol/L (136-145)
[2020-01-18 06:25] VITALS: BP 107/57; PULSE 86; RESP 18; TEMP 36.6; O2SAT 95
[2020-01-18] MEDS: oxyCODONE 5 MG Tablet PO ×2 (06:31→12:07)
[2020-01-18] MEDS: Acetaminophen 325 MG Tablet 650 MG PO (06:31)
[2020-01-18] MEDS: Levothyroxine 25 MCG TABLET PO (06:32)
[2020-01-18] MEDS: Aspirin E.C. 81 MG Tablet PO (06:32)
[2020-01-18] MEDS: Sucralfate 1 GM Tablet PO (06:32)
[2020-01-18] MEDS: Lisinopril 2.5 MG Tablet PO (06:32)
[2020-01-18 06:40] VITALS: O2SAT 95
[2020-01-18 06:46] LABS: Bedside Glucose 130 mg/dL (70-110)
[2020-01-18 07:27] VITALS: PULSE 96
[2020-01-18 10:17] LABS: Hematocrit 24.3 % (37-47); Hemoglobin 7.6 g/dL (12.0-15.0)
--- NOTE | 2020-01-18 10:33 | PN.SURG_ITS ---
Patient Problems: Active and Suspected Problems (Last Reviewed 12/23/19 @ 09:38 by Nicole Valle) Biliary dyskinesia (Acute) Subjective: Only complaining of minimal pain primarily at the umbilical site. Tolerating a diet. Objective: Abdomen is soft and pressing is dry - Physical Exam Vitals/I&O's: Vital Signs Temp Pulse Resp BP Pulse Ox 97.9 F 96 18 107/57 L 95 01/18/20 06:25 01/18/20 07:27 01/18/20 06:25 01/18/20 06:25 01/18/20 06:40 Oxygen Flow Rate (L/min) 1 Oxygen Delivery Method Nasal Cannula Weight: 161 lb 13.109 oz Body Mass Index (BMI) 31.6 Finger Stick Blood Glucose 193 Intake and Output for Last 24 Hours 01/16/20 01/17/20 01/18/20 23:59 23:59 23:59 Intake Total 1979 / 1979 315 / 315 Output Total 550 / 550 1200 / 1200 Balance 1430 / 1430 -885 / -885 Microbiology Past 72 Hours 01/16/20 Unknown Mucosa - Nasopharyngeal Coronavirus COVID-19 PCR - Final Laboratory Results 01/17/20 10:31: Troponin I 0.052 H 01/17/20 13:40: Troponin I 0.275 H 01/17/20 16:48: POC Glucose 109 01/17/20 17:18: Troponin I 0.404 H 01/17/20 21:28: POC Glucose 119 H 01/18/20 05:12: WBC 4.3 L, RBC 2.44 L, Hgb 7.6 L, Hct 23.8 L, MCV 97.5, MCH 31.1, MCHC 31.9 L, RDW Std Deviation 57.8 H, RDW Coeff of Autumn 16.2 H, Plt Count 425, MPV 8.4, Immature Gran % (Auto) 0.500, Neut % (Auto) 62.6, Lymph % (Auto) 23.7, [place] % (Auto) 10.1 H, Eos % (Auto) 2.6, Baso % (Auto) 0.5, Absolute Neuts (auto) 2.7, Absolute Lymphs (auto) 1.01, Nucleated RBC % 0 01/18/20 05:12: Sodium 138, Potassium 4.1, Chloride 105, Carbon Dioxide 28.0, Anion Gap 5, BUN 16, Creatinine 0.99, Estim Creat Clear Calc 46.66, Est GFR (MDRD) Af Amer 75, Est GFR (MDRD) Non-Af 62, BUN/Creatinine Ratio 16.2, Glucose 117 H, Calcium 8.8, Iron 72, TIBC 411, Iron Saturation 17.5, Ferritin 9, Troponin I 0.112 H 01/18/20 06:30: POC Glucose 130 H 01/18/20 10:00: Hgb 7.6 L, Hct 24.3 L Current Medications Acetaminophen (Tylenol) 650 mg PO Q6H PRN PRN PRN Reason: Pain Score 1-10/Temp > 100.7 F Last Admin: 01/18/20 06:31 Dose: 650 mg Documented by: Albuterol Sulfate (Ventolin Aerosols) 2.5 mg INHALATION Q6H PRN PRN PRN Reason: SOB &/OR WHEEZING Aspirin (Ecotrin) 81 mg PO DAILY@0800 [facility] Last Admin: 01/18/20 06:32 Dose: 81 mg Documented by: Atorvastatin Calcium (Lipitor) 40 mg PO QHS [facility] Last Admin: 01/17/20 21:37 Dose: 40 mg Documented by: Dextrose (D50w Syringe) 0 gm IV X1 PRN; Protocol PRN Reason: Hypoglycemia Doxepin HCl (Doxepin Hcl) 50 mg PO [facility] Last Admin: 01/17/20 21:37 Dose: 50 mg Documented by: Glimepiride (Amaryl) 4 mg PO BIDCM [facility] Last Admin: 01/17/20 17:36 Dose: Not Given Documented by: Glucagon () 1 mg IM .X1 PRN PRN Reason: Hypoglycemia Lactated Ringer's () 1,000 mls @ 100 mls/hr IV .Q10H [facility] Last Admin: 01/18/20 03:08 Dose: 100 mls/hr Documented by: Lactated Ringer's () 1,000 mls @ 15 mls/hr IV .Q48H [facility] Last Admin: 01/17/20 16:42 Dose: Not Given Documented by: Sodium Chloride () 250 mls @ 15 mls/hr IV .[id number] PRN PRN Reason: Saline Flush Insulin Human Lispro (Humalog Kwikpen (Bkc)) 0 unit SC ACHS [facility]; Protocol Last Admin: 01/18/20 06:32 Dose: Not Given Documented by: Levothyroxine Sodium (Synthroid) 25 mcg PO DAILY@0600 [facility] Last Admin: 01/18/20 06:32 Dose: 25 mcg Documented by: Lisinopril (Zestril) 2.5 mg PO DAILY [facility] Last Admin: 01/18/20 06:32 Dose: 2.5 mg Documented by: Nitroglycerin (Nitrostat) 0.4 mg SUBLINGUAL Q5M PRN PRN Reason: CHEST PAIN Ondansetron HCl (Zofran) 4 mg IV Q8H PRN PRN PRN Reason: NAUSEA/VOMITING Oxycodone HCl (Oxyir) 5 - 10 mg PO Q4H PRN PRN PRN Reason: Pain Score 5-10/10 Last Admin: 01/18/20 06:31 Dose: 10 mg Documented by: Pantoprazole Sodium (Protonix) 40 mg PO BID [facility] Last Admin: 01/17/20 21:38 Dose: 40 mg Documented by: Paroxetine HCl (Paxil) 20 mg PO QHS [facility] Last Admin: 01/17/20 21:39 Dose: 20 mg Documented by: Pioglitazone HCl (Actos) 30 mg PO QHS [facility] Last Admin: 01/17/20 21:36 Dose: 30 mg Documented by: Sodium Chloride () 10 - 40 ml IV UD PRN PRN Reason: SALINE FLUSH [facility]uc[facility]) [facility] Last Admin: 01/18/20 06:32 Dose: 1 gm Documented by: Medical Necessity - Tobacco Use Smoking Status: Former smoker Tobacco Use: Non-smoker Assessment/Plan All Active Problems (Last Reviewed 12/23/19 @ 09:38 by Nicole Valle) Biliary dyskinesia (Acute) Hypoglycemia (Acute) Syncope (Acute) History of hysterectomy (Resolved) COPD exacerbation (Resolved) Chest pain (Resolved) Left arm numbness (Resolved) Right lower lobe pneumonia (Resolved) Unstable angina (Resolved) Patient will be getting a stress test today. Should be able to be discharged from surgical standpoint if all is negative.
--- NOTE | 2020-01-18 10:44 | STRESSREP ---
Stress Test Report Pharmacologic myocardial perfusion stress test. Abnormal cardiac enzymes. Stress protocol: Resting EKG demonstrates normal sinus rhythm with a rate of 93 bpm normal intervals are noted resting blood pressures 104/60 mmHg. 0.4 mg of regadenoson was infused per usual protocol followed up intravenous saline flush injection continuous EKG monitoring was performed. The maximum heart rate attained was 1 and 37 bpm which was 83% of maximum predicted heart rate the maximum workload was 1 metabolic equivalent. At rest with no ST or T wave changes noted suggest abnormal flow reserve at peak infusion nonspecific ST-T wave changes were noted. No clinical angina was noted. Myocardial perfusion protocol. 12.0 mCi of technetium 99m sestamibi was injected at rest. 0.4 mg of regadenoson was infused per usual protocol peak infusion 36.0 mCi of technetium 99m sestamibi was injected stress images were obtained stress and rest images were reconstructed and compared in the short axis vertical and horizontal long axis. Gated images were also obtained per Perfusion SPECT analysis: Review of the stress images demonstrate mildly reduced perfusion noted in the anterior wall on the stress and rest images to a similar extent. The above is likely secondary to anterior breast wall attenuation. No obvious changes are noted to suggest ischemia. Gated SPECT analysis: The gated ejection fraction is 87%. Conclusion: Normal pharmacologic myocardial perfusion stress test with anterior breast wall attenuation. preserved ejection fraction.
--- NOTE | 2020-01-18 10:46 | PN.CARD_ITS ---
Subjectve: Patient seen and evaluated. Objective: Vital Signs Temp Pulse Resp BP Pulse Ox 97.9 F 96 18 107/57 L 95 01/18/20 06:25 01/18/20 07:27 01/18/20 06:25 01/18/20 06:25 01/18/20 06:40 Oxygen Flow Rate (L/min) 1 Oxygen Delivery Method Nasal Cannula Weight: 161 lb 13.109 oz Body Mass Index (BMI) 31.6 Finger Stick Blood Glucose 193 Intake and Output for Last 24 Hours 01/16/20 01/17/20 01/18/20 23:59 23:59 23:59 Intake Total 1979 315 / 315 Output Total 550 / 550 1200 / 1200 Balance 1430 / 1430 -885 / -885 General: Awake, Alert, Oriented x 3 HEENT: PERRL, EOMI, Sclera Non Icteric Neck: Supple, Good ROM, No Lymph Node Enlargement Lungs: Clear to auscultation Cardiovascular: Regular Rhythm, Normal S1, Normal S2, No Murmurs, No Rubs, No Gallops Vascular: No Carotid Bruits, Normal Femoral Pulses, Normal Radial Pulses, Normal Dorsalis Pedal Pulse, Normal Posterior Tibial Pulses Abdomen: Bowel Sounds Present, Soft, Non Tender, No HSM, No Organomegaly Extremities: No Cyanosis, No Clubbing, No edema Neurological: No Focal Motor or Sensory Deficit 01/17/20 10:31: Troponin I 0.052 H 01/17/20 13:40: Troponin I 0.275 H 01/17/20 17:18: Troponin I 0.404 H 01/18/20 05:12: WBC 4.3 L, RBC 2.44 L, Hgb 7.6 L, Hct 23.8 L, MCV 97.5, MCH 31.1, MCHC 31.9 L, Plt Count 425, MPV 8.4, Immature Gran % (Auto) 0.500, Neut % (Auto) 62.6, Lymph % (Auto) 23.7, [place] % (Auto) 10.1 H, Eos % (Auto) 2.6, Baso % (Auto) 0.5, Absolute Neuts (auto) 2.7, Nucleated RBC % 0 01/18/20 05:12: Sodium 138, Potassium 4.1, Chloride 105, Carbon Dioxide 28.0, Anion Gap 5, BUN 16, Creatinine 0.99, Est GFR (MDRD) Af Amer 75, Est GFR (MDRD) Non-Af 62, BUN/Creatinine Ratio 16.2, Glucose 117 H, Calcium 8.8, Iron 72, TIBC 411, Iron Saturation 17.5, Ferritin 9, Troponin I 0.112 H 01/18/20 10:00: Hgb 7.6 L, Hct 24.3 L Rhythm: EKG: ECHO: Stress Test: Cardiac Cath: PCI: CT Surgery: Holter monitor: EPS: PPM: CXR: Chest CT Scan: Medical Necessity - Tobacco Use Smoking Status: Former smoker Tobacco Use: Non-smoker Assessment/Plan 1. Postoperative chest discomfort. * Etiology of the above is not entirely clear. Her EKG is normal. She does have a mildly abnormal troponin enzyme. * The fact that 3 years ago she had a cardiac catheterization which demonstrated no obstructive coronary disease is reassuring. A subsequent stress test is also been reassuring with preserved ejection fraction. * She does have cardiac risk factors however. * Stress test performed this morning demonstrates no evidence of ischemia. Anterior breast wall attenuation present. * Recommendation will be to have patient follow-up with primary physician as an outpatient. 2. Hypertension * Her blood pressure is under good control at this time I would not recommend we make any changes. * 3. Anemia * Patient is noted to be rather significantly anemic. The etiology at this particular time is not exactly clear. * This will need to be worked up as an outpatient * * Thank you for allowing me to participate in the care of your patient. Discussed with hospitalist.
[2020-01-18 10:54] VITALS: BP 100/57; PULSE 86; RESP 16; TEMP 36.9; O2SAT 97
[2020-01-18] MEDS: Pantoprazole Sodium 40 MG Tablet PO (11:02)
--- NOTE | 2020-01-18 11:20 | NURSING ---
This RN taking over care of pt at this time.
[2020-01-18] MEDS: 0.9% Saline Lock 10 ML Syringe IV (12:00)
[2020-01-18 12:45] LABS: Bedside Glucose 130 mg/dL (70-110)
--- NOTE | 2020-01-18 13:27 | PCM.DC ---
- Discharge Diagnoses Current Active Problems: Current Active and Chronic Problems (Last Reviewed 12/23/19 @ 09:38 by Nicole Valle) 1. Biliary dyskinesia status post cholecystectomy You will use the following diet at home:: Other - Light diet advance as tolerated Discharge Activity: Return to Normal Activity, May Not Drive - for 2-3 days or while taking narcotic pain medicataions., - - Do not drive, work heavy equipment or sign legal documents for 24 hours. May shower in (days): 1 - with the bandage in place. Additional Activity Instructions:: Pain medication may cause nausea. You should typically eat light foods as you take your pain medications. Pain medication may also cause constipation. If this is a problem for you, please discuss with your doctor. Call your doctor if your incision/area has: Continuous Slow Oozing, Sudden Increased Bleeding, Increased Pain/ Swelling, Increased Redness, Foul Smelling Discharge, Fever of 101 or Higher Call your doctor if you observe: Fever of 101 or Higher Suture Line Care: Avoid Pulling/Pushing, Avoid Pinching/Bending Additional Dressing/Incision Instructions:: Leave operative bandaids on for 2 days. When you remove dressing, leave Steri-Strips on until your follow-up appointment, or until the Steri-Strips fall off on their own. Allergies/Adverse Reactions: Allergies prochlorperazine edisylate [From Compazine] Allergy (Verified 01/15/20 14:11) Rash prochlorperazine maleate [From Compazine] Allergy (Verified 01/15/20 14:11) Rash Medications to take at Discharge Atorvastatin Calcium [Lipitor] 40 mg PO DAILY 08/11/14 lisinopril 5 mg tablet 2.5 mg PO DAILY 10/24/17 Levothyroxine [Synthroid] 25 mcg PO DAILY 05/09/18 metFORMIN HCl [Glucophage] 1,000 mg PO BID 03/29/19 Doxepin HCl 50 mg PO QHS 09/27/19 Pioglitazone [Actos] 30 mg PO QHS 09/27/19 Pantoprazole Sodium [Protonix] 40 mg PO BID 12/14/19 Paroxetine HCl [Paxil] 20 mg PO QHS 12/14/19 Sucralfate [Carafate] 1 gm PO 4X/DAY 12/14/19 Albuterol IH (ProAir) [Proair Hfa] 1 puff INHALATION Q6H PRN PRN 01/15/20 Famotidine 40 mg PO QHS 01/17/20 Aspirin E.C. [Ecotrin] 81 mg PO DAILY@0800 #30 tab 01/18/20 Glimepiride [Amaryl] 4 mg PO BIDCM tab 01/18/20 The following prescriptions were given: Aspirin E.C. [Ecotrin] 81 mg PO DAILY@0800 #30 tab Transmission Status: Pending to [facility] Primary Care Physician: Bret You Chi, MD [Primary Care Provider] - Please follow up with your Primary Care Physician in: 1 Week Test Results: Test results from this visit will be discussed in further detail at your follow-up appointment, if applicable. Please Follow Up With: Odell Crystal MD When: Please call to schedule 2 week follow up appointment. [phone] Please Follow Up With: Elvin Mcintyre MD When: 2-4 weeks, may see [employer]GER/PA Proposed Discharge Date: 01/18/20
--- NOTE | 2020-01-18 13:33 | PCM.DC.SUM ---
<Ameena Manning - Last Filed: 01/18/20 13:41> Discharge Date and Diagnosis Date of Admission: 01/17/20 Date of Discharge: 01/18/20 - Primary Discharge Diagnosis Acute Problems: Active Problems (Last Reviewed 12/23/19 @ 09:38 by Nicole Valle) 1. Biliary dyskinesia status post cholecystectomy 01/17/2020 2. Postoperative chest pain with abnormal troponin, ACS ruled out 3. Chronic normocytic anemia 4. Type 2 diabetes mellitus 5. Hypertension 6. Hyperlipidemia 7. Hypothyroidism - Secondary Discharge Diagnosis Chronic Problems: Chronic Problems (Last Reviewed 12/23/19 @ 09:38 by Nicole Valle) Left carotid bruit (Chronic) Chronic anemia (Chronic) Constipation (Chronic) Hemorrhoid (Chronic) Anemia (Chronic) Arthritis (Chronic) Fibroadenoma of left breast (Chronic) Segmental and somatic dysfunction of pelvic region (Chronic) Segmental and somatic dysfunction of lumbar region (Chronic) Microcalcification of left breast on mammogram (Chronic) Hx of cardiac catheterization (Chronic) Hypothyroidism (Chronic) Depression (Chronic) Insomnia (Chronic) Diabetes type 2, controlled (Chronic) History of tobacco use (Chronic) Dyslipidemia (Chronic) COPD (chronic obstructive pulmonary disease) with emphysema (Chronic) Hospital Course and Treatment Imaging Results: Diagnostic Data Cholangiogram 01/17/20 08:32 IMPRESSION: There is no evidence of retained stones in the common bile duct. Electronically Signed: Fide Karimi, at 11:34 EDT Tel , Service support , Dr. Kumar- general surgery Dr. Mcintyre- Cardiology Operations: cholecystecomy Procedures: Stress test Summary of Care Provided: The patient is a 54 year old F admitted 01/17/2020 due to postoperative chest pain. 1. Biliary dyskinesia status post cholecystectomy 01/17/[address] Arsalan lópez. Outpatient follow-up with surgery. 2. Postoperative chest pain with abnormal troponin, ACS ruled out-patient underwent nuclear stress test which was negative for ischemia. Gated ejection fraction 87%. Cardiology consulted during admission. Patient had prior heart cath 3 years ago which showed nonobstructive coronary arteries. Continue aspirin, statin. 3. Chronic normocytic anemia-IV Venofer x1. Recommend repeat CBC by PCP in 3 to 5 days. Outpatient follow-up. 4. Type 2 diabetes mellitus-continue home oral regimen. 5. Hypertension- stable, continue lisinopril regimen. 6. Hyperlipidemia-continue statin. 7. Hypothyroidism-continue Synthroid regimen. Patient seen and examined prior to discharge. Physical assessment as noted below. Patient is stable for discharge with follow up recommendations as noted above. This patient was seen by VANESSA Langley under the supervision of Dr. Mares. - Physical Exam Vitals/I&O's: Vital Signs Temp Pulse Resp BP Pulse Ox 98.4 F 86 16 100/57 L 97 01/18/20 10:54 01/18/20 10:54 01/18/20 10:54 01/18/20 10:54 01/18/20 10:54 Oxygen Flow Rate (L/min) 1 Oxygen Delivery Method Room Air Weight: 161 lb 13.109 oz Body Mass Index (BMI) 31.6 Finger Stick Blood Glucose 193 Intake and Output for Last 24 Hours 01/16/20 01/17/20 01/18/20 23:59 23:59 23:59 Intake Total 1979 / 1979 926.67 / 926.67 Output Total 550 / 550 1200 / 1200 Balance 1430 / 1430 -273.33 / -273.33 General: Alert, Oriented x3, Cooperative HEENT: Atraumatic, PERRLA, EOMI, Normocephalic Neck: Supple, No JVD, Negative Carotid Bruits Lungs: Clear to auscultation, Normal air movement Cardiovascular: Regular rate, No murmurs Abdomen: Bowel Sounds Present, Soft, Non Tender, - - Postoperative dressing intact Extremities: No clubbing, No cyanosis, No edema, Capillary Refill Less than 3 Seconds Skin: No rashes, No breakdown Musculoskeletal: No Tenderness to Palpation of Joints or Extremities Neurological: Cranial nerves II-XII grossly intact, Neuro grossly intact Psych/Mental Status: Normal Affect, Appropriate Microbiology Past 72 Hours 01/16/20 Unknown Mucosa - Nasopharyngeal Coronavirus COVID-19 PCR - Final Laboratory Results 01/17/20 13:40: Troponin I 0.275 H 01/17/20 16:48: POC Glucose 109 01/17/20 17:18: Troponin I 0.404 H 01/17/20 21:28: POC Glucose 119 H 01/18/20 05:12: WBC 4.3 L, RBC 2.44 L, Hgb 7.6 L, Hct 23.8 L, MCV 97.5, MCH 31.1, MCHC 31.9 L, RDW Std Deviation 57.8 H, RDW Coeff of Autumn 16.2 H, Plt Count 425, MPV 8.4, Immature Gran % (Auto) 0.500, Neut % (Auto) 62.6, Lymph % (Auto) 23.7, Blount % (Auto) 10.1 H, Eos % (Auto) 2.6, Baso % (Auto) 0.5, Absolute Neuts (auto) 2.7, Absolute Lymphs (auto) 1.01, Nucleated RBC % 0 01/18/20 05:12: Sodium 138, Potassium 4.1, Chloride 105, Carbon Dioxide 28.0, Anion Gap 5, BUN 16, Creatinine 0.99, Estim Creat Clear Calc 46.66, Est GFR (MDRD) Af Amer 75, Est GFR (MDRD) Non-Af 62, BUN/Creatinine Ratio 16.2, Glucose 117 H, Calcium 8.8, Iron 72, TIBC 411, Iron Saturation 17.5, Ferritin 9, Troponin I 0.112 H 01/18/20 06:30: POC Glucose 130 H 01/18/20 10:00: Hgb 7.6 L, Hct 24.3 L 01/18/20 11:59: POC Glucose 130 H Current Medications Acetaminophen (Tylenol) 650 mg PO Q6H PRN PRN PRN Reason: Pain Score 1-10/Temp > 100.7 F Last Admin: 01/18/20 06:31 Dose: 650 mg Documented by: Albuterol Sulfate (Ventolin Aerosols) 2.5 mg INHALATION Q6H PRN PRN PRN Reason: SOB &/OR WHEEZING Aspirin (Ecotrin) 81 mg PO DAILY@0800 [facility] Last Admin: 01/18/20 06:32 Dose: 81 mg Documented by: Atorvastatin Calcium (Lipitor) 40 mg PO QHS [facility] Last Admin: 01/17/20 21:37 Dose: 40 mg Documented by: Dextrose (D50w Syringe) 0 gm IV X1 PRN; Protocol PRN Reason: Hypoglycemia Doxepin HCl (Doxepin Hcl) 50 mg PO [facility] Last Admin: 01/17/20 21:37 Dose: 50 mg Documented by: Glimepiride (Amaryl) 4 mg PO BIDCM [facility] Last Admin: 01/18/20 11:59 Dose: Not Given Documented by: Glucagon () 1 mg IM .X1 PRN PRN Reason: Hypoglycemia Lactated Ringer's () 1,000 mls @ 100 mls/hr IV .Q10H [facility] Last Infusion: 01/18/20 09:15 Dose: 0 mls/hr Documented by: Lactated Ringer's () 1,000 mls @ 15 mls/hr IV .Q48H [facility] Last Admin: 01/17/20 16:42 Dose: Not Given Documented by: Sodium Chloride () 250 mls @ 15 mls/hr IV .[id number] PRN PRN Reason: Saline Flush Insulin Human Lispro (Humalog Kwikpen (Bkc)) 0 unit SC ACHS [facility]; Protocol Last Admin: 01/18/20 12:00 Dose: Not Given Documented by: Levothyroxine Sodium (Synthroid) 25 mcg PO DAILY@0600 [facility] Last Admin: 01/18/20 06:32 Dose: 25 mcg Documented by: Lisinopril (Zestril) 2.5 mg PO DAILY [facility] Last Admin: 01/18/20 06:32 Dose: 2.5 mg Documented by: Nitroglycerin (Nitrostat) 0.4 mg SUBLINGUAL Q5M PRN PRN Reason: CHEST PAIN Ondansetron HCl (Zofran) 4 mg IV Q8H PRN PRN PRN Reason: NAUSEA/VOMITING Oxycodone HCl (Oxyir) 5 - 10 mg PO Q4H PRN PRN PRN Reason: Pain Score 5-10/10 Last Admin: 01/18/20 12:07 Dose: 5 mg Documented by: Pantoprazole Sodium (Protonix) 40 mg PO BID [facility] Last Admin: 01/18/20 11:02 Dose: 40 mg Documented by: Paroxetine HCl (Paxil) 20 mg PO QHS [facility] Last Admin: 01/17/20 21:39 Dose: 20 mg Documented by: Pioglitazone HCl (Actos) 30 mg PO QHS [facility] Last Admin: 01/17/20 21:36 Dose: 30 mg Documented by: Sodium Chloride () 10 - 40 ml IV UD PRN PRN Reason: SALINE FLUSH Last Admin: 01/18/20 12:00 Dose: 10 ml Documented by: Sucralfate (Carafate) 1 gm PO 1HR_[facility] Last Admin: 01/18/20 11:59 Dose: Not Given Documented by: Discharge Diet: Light diet - advance as tolerated Discharge Activity: Return to Normal Activity, May Not Drive - for 2-3 days or while taking narcotic pain medicataions., - - Do not drive, work heavy equipment or sign legal documents for 24 hours. May shower in (days): 1 - with the bandage in place. Additional Activity Instructions:: Pain medication may cause nausea. You should typically eat light foods as you take your pain medications. Pain medication may also cause constipation. If this is a problem for you, please discuss with your doctor. Call your doctor if your incision/area has: Continuous Slow Oozing, Sudden Increased Bleeding, Increased Pain/ Swelling, Increased Redness, Foul Smelling Discharge, Fever of 101 or Higher Call your doctor if you observe: Fever of 101 or Higher Suture Line Care: Avoid Pulling/Pushing, Avoid Pinching/Bending Additional Dressing/Incision Instructions:: Leave operative bandaids on for 2 days. When you remove dressing, leave Steri-Strips on until your follow-up appointment, or until the Steri-Strips fall off on their own. Home Medications: Medications to take at Discharge Atorvastatin Calcium [Lipitor] 40 mg PO DAILY 08/11/14 lisinopril 5 mg tablet 2.5 mg PO DAILY 10/24/17 Levothyroxine [Synthroid] 25 mcg PO DAILY 05/09/18 metFORMIN HCl [Glucophage] 1,000 mg PO BID 03/29/19 Doxepin HCl 50 mg PO QHS 09/27/19 Pioglitazone [Actos] 30 mg PO QHS 09/27/19 Pantoprazole Sodium [Protonix] 40 mg PO BID 12/14/19 Paroxetine HCl [Paxil] 20 mg PO QHS 12/14/19 Sucralfate [Carafate] 1 gm PO 4X/DAY 12/14/19 Albuterol IH (ProAir) [Proair Hfa] 1 puff INHALATION Q6H PRN PRN 01/15/20 Famotidine 40 mg PO QHS 01/17/20 Aspirin E.C. [Ecotrin] 81 mg PO DAILY@0800 #30 tab 01/18/20 Glimepiride [Amaryl] 4 mg PO BIDCM tab 01/18/20 Following Prescrptions Were Given to Patient: Aspirin E.C. [Ecotrin] 81 mg PO DAILY@0800 #30 tab Transmission Status: Received by [facility] Primary Care Physician: Bret You Chi, MD [Primary Care Provider] - Please follow up with your Primary Care Physician in: 1 Week Please Follow Up With: Odell Crystal MD When: Please call to schedule 2 week follow up appointment. [phone] Please Follow Up With: Elvin Mcintyre MD When: 2-4 weeks, may see PRINTING ENGINEER/PA Disposition: Home Minutes spent on discharge:: 35 Patient Condition:: Stable Medical Necessity - Tobacco Use Smoking Status: Former smoker Tobacco Use: Non-smoker Meaningful Use Info Meaningful Use Diagnoses (Choose all that apply): None applicable <Deborah Mares - Last Filed: 01/18/20 14:02> Discharge Date and Diagnosis - Secondary Discharge Diagnosis Chronic Problems: Chronic Problems (Last Reviewed 12/23/19 @ 09:38 by Nicole Valle) Left carotid bruit (Chronic) Chronic anemia (Chronic) Constipation (Chronic) Hemorrhoid (Chronic) Anemia (Chronic) Arthritis (Chronic) Fibroadenoma of left breast (Chronic) Segmental and somatic dysfunction of pelvic region (Chronic) Segmental and somatic dysfunction of lumbar region (Chronic) Microcalcification of left breast on mammogram (Chronic) Hx of cardiac catheterization (Chronic) Hypothyroidism (Chronic) Depression (Chronic) Insomnia (Chronic) Diabetes type 2, controlled (Chronic) History of tobacco use (Chronic) Dyslipidemia (Chronic) COPD (chronic obstructive pulmonary disease) with emphysema (Chronic) Hospital Course and Treatment Imaging Results: 01/18/20 08:00 Nuclear Stress Test - Chemical [NM] Routine Summary of Care Provided: Patient seen by Ameena NAJERAC under my supervision The patient is a 54 year old F with an extensive past medical history as outlined. She was admitted for same-day surgery on 01/17/2020 by general surgery for outpatient cholecystectomy. She had been complaining of epigastric and right upper quadrant pain for several months and pain had not improved with PPI and Carafate. EGD done was normal and HIDA test done showed low EF and CCK replicated her symptoms completely. She was therefore admitted for laparoscopic cholecystectomy on outpatient basis. She had said procedure on 01/17/2020. Postop course was complicated by chest pain. Stat troponin done was 0.052. EKG done showed no acute ST changes. Repeat troponin had trended up to 0.404 then downwards to 0.112. Cardiology was consulted. She had a stress test on 01/18/2020 which was negative for any evidence of ischemia. Mildly elevated troponin was therefore thought to be due to demand ischemia from surgery. Hemoglobin dropped to 7.6 from 8.8 on admission. WBC and platelets also dropped today may have been hemodilution all. Iron panel check showed ferritin of 9 with iron saturation of 17.5 and TIBC of 411 and iron level of 72. Patient was therefore given a dose of Venofer on account of low iron stores with low ferritin and she was discharged with a prescription for p.o. iron supplements. Patient remained stable and was discharged home on 01/18/2020. She is to follow-up with her primary care doctor and general surgery as well as cardiology within 1 to 2 weeks. Patient seen and examined prior to discharge. She has no complaints and felt well. Review of symptoms otherwise negative. Labs and vitals reviewed. Home medication reviewed and reconciled. o/e: Vital Signs Temp Pulse Resp BP Pulse Ox 98.4 F 86 16 100/57 L 97 01/18/20 10:54 01/18/20 10:54 01/18/20 10:54 01/18/20 10:54 01/18/20 10:54 General: Alert, Oriented x3, Cooperative, No apparent distress HEENT: Atraumatic, PERRLA, EOMI, Normocephalic Oral: Moist Mucosa Neck: Supple, No JVD, Negative Carotid Bruits Lungs: Clear to auscultation, Normal air movement, No rhonchi, No wheeze, No rales Cardiovascular: Regular rate, Regular Rhythm, Normal S1, Normal S2, No murmurs Abdomen: Bowel Sounds Present, Soft, - - minimal tenderness at laparoscopic sites. Surgical site has clean dressing in place Extremities: No edema, Capillary Refill Less than 3 Seconds Skin: No rashes, No breakdown Musculoskeletal: No Tenderness to Palpation of Joints or Extremities Lymphatic: No Cervical, Supraclavicular, or Inguinal Adenopathy Neurological: Cranial nerves II-XII grossly intact Psych/Mental Status: Normal Affect, Appropriate, Alert and oriented to time, place, person, mood and affect Plan as above. Res as per Ameena Manning PRINTING ENGINEER-c's note, which I have reviewed and endorsed. - Physical Exam Vitals/I&O's: Vital Signs Temp Pulse Resp BP Pulse Ox 98.4 F 86 16 100/57 L 97 01/18/20 10:54 01/18/20 10:54 01/18/20 10:54 01/18/20 10:54 01/18/20 10:54 Oxygen Flow Rate (L/min) 1 Oxygen Delivery Method Room Air Weight: 161 lb 13.109 oz Body Mass Index (BMI) 31.6 Finger Stick Blood Glucose 193 Intake and Output for Last 24 Hours 01/16/20 01/17/20 01/18/20 23:59 23:59 23:59 Intake Total 1979 / 1979 926.67 / 926.67 Output Total 550 / 550 1200 / 1200 Balance 1430 / 1430 -273.33 / -273.33 Microbiology Past 72 Hours 01/16/20 Unknown Mucosa - Nasopharyngeal Coronavirus COVID-19 PCR - Final Laboratory Results 01/17/20 13:40: Troponin I 0.275 H 01/17/20 16:48: POC Glucose 109 01/17/20 17:18: Troponin I 0.404 H 01/17/20 21:28: POC Glucose 119 H 01/18/20 05:12: WBC 4.3 L, RBC 2.44 L, Hgb 7.6 L, Hct 23.8 L, MCV 97.5, MCH 31.1, MCHC 31.9 L, RDW Std Deviation 57.8 H, RDW Coeff of Autumn 16.2 H, Plt Count 425, MPV 8.4, Immature Gran % (Auto) 0.500, Neut % (Auto) 62.6, Lymph % (Auto) 23.7, Blount % (Auto) 10.1 H, Eos % (Auto) 2.6, Baso % (Auto) 0.5, Absolute Neuts (auto) 2.7, Absolute Lymphs (auto) 1.01, Nucleated RBC % 0 01/18/20 05:12: Sodium 138, Potassium 4.1, Chloride 105, Carbon Dioxide 28.0, Anion Gap 5, BUN 16, Creatinine 0.99, Estim Creat Clear Calc 46.66, Est GFR (MDRD) Af Amer 75, Est GFR (MDRD) Non-Af 62, BUN/Creatinine Ratio 16.2, Glucose 117 H, Calcium 8.8, Iron 72, TIBC 411, Iron Saturation 17.5, Ferritin 9, Troponin I 0.112 H 01/18/20 06:30: POC Glucose 130 H 01/18/20 10:00: Hgb 7.6 L, Hct 24.3 L 01/18/20 11:59: POC Glucose 130 H Current Medications Acetaminophen (Tylenol) 650 mg PO Q6H PRN PRN PRN Reason: Pain Score 1-10/Temp > 100.7 F Last Admin: 01/18/20 06:31 Dose: 650 mg Documented by: Albuterol Sulfate (Ventolin Aerosols) 2.5 mg INHALATION Q6H PRN PRN PRN Reason: SOB &/OR WHEEZING Aspirin (Ecotrin) 81 mg PO DAILY@0800 [facility] Last Admin: 01/18/20 06:32 Dose: 81 mg Documented by: Atorvastatin Calcium (Lipitor) 40 mg PO QHS [facility] Last Admin: 01/17/20 21:37 Dose: 40 mg Documented by: Dextrose (D50w Syringe) 0 gm IV X1 PRN; Protocol PRN Reason: Hypoglycemia Doxepin HCl (Doxepin Hcl) 50 mg PO [facility] Last Admin: 01/17/20 21:37 Dose: 50 mg Documented by: Glimepiride (Amaryl) 4 mg PO BIDCM [facility] Last Admin: 01/18/20 11:59 Dose: Not Given Documented by: Glucagon () 1 mg IM .X1 PRN PRN Reason: Hypoglycemia Lactated Ringer's () 1,000 mls @ 100 mls/hr IV .Q10H [facility] Last Infusion: 01/18/20 09:15 Dose: 0 mls/hr Documented by: Lactated Ringer's () 1,000 mls @ 15 mls/hr IV .Q48H [facility] Last Admin: 01/17/20 16:42 Dose: Not Given Documented by: Sodium Chloride () 250 mls @ 15 mls/hr IV .[id number] PRN PRN Reason: Saline Flush Insulin Human Lispro (Humalog Kwcarolynpen (Bkc)) 0 unit SC ACHS [facility]; Protocol Last Admin: 01/18/20 12:00 Dose: Not Given Documented by: Levothyroxine Sodium (Synthroid) 25 mcg PO DAILY@0600 [facility] Last Admin: 01/18/20 06:32 Dose: 25 mcg Documented by: Lisinopril (Zestril) 2.5 mg PO DAILY [facility] Last Admin: 01/18/20 06:32 Dose: 2.5 mg Documented by: Nitroglycerin (Nitrostat) 0.4 mg SUBLINGUAL Q5M PRN PRN Reason: CHEST PAIN Ondansetron HCl (Zofran) 4 mg IV Q8H PRN PRN PRN Reason: NAUSEA/VOMITING Oxycodone HCl (Oxyir) 5 - 10 mg PO Q4H PRN PRN PRN Reason: Pain Score 5-10/10 Last Admin: 01/18/20 12:07 Dose: 5 mg Documented by: Pantoprazole Sodium (Protonix) 40 mg PO BID [facility] Last Admin: 01/18/20 11:02 Dose: 40 mg Documented by: Paroxetine HCl (Paxil) 20 mg PO QHS [facility] Last Admin: 01/17/20 21:39 Dose: 20 mg Documented by: Pioglitazone HCl (Actos) 30 mg PO QHS [facility] Last Admin: 01/17/20 21:36 Dose: 30 mg Documented by: Sodium Chloride () 10 - 40 ml IV UD PRN PRN Reason: SALINE FLUSH Last Admin: 01/18/20 12:00 Dose: 10 ml Documented by: Sucralfate (Carafate) 1 gm PO 1HR_[facility] Last Admin: 01/18/20 11:59 Dose: Not Given Documented by: OBSV E&M: [id number] Observation care discharge
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
== END 2020-01-18 13:28 | disposition home or self-care (01) ==
LOC: SDC 15:41 → PCU 16:02
PROVIDERS: Anesthesiology; Admitting Provider Student in an Organized Health Care Education/Training Program; PCP Family Medicine Geriatric Medicine; Referring Provider Surgery; Visit Provider Student in an Organized Health Care Education/Training Program
PROC: (CPT 47610; principal; 2020-01-17 08:10)
DX: K81.1 Chronic cholecystitis (principal); R07.9 Chest pain, unspecified; E03.9 Hypothyroidism, unspecified; E78.5 Hyperlipidemia, unspecified; F32.9 Major depressive disorder, single episode, unspecified; F41.9 Anxiety disorder, unspecified; M19.90 Unspecified osteoarthritis, unspecified site; G47.00 Insomnia, unspecified; Z79.51 Long term (current) use of inhaled steroids; R01.1 Cardiac murmur, unspecified; D64.9 Anemia, unspecified; J43.9 Emphysema, unspecified; K21.9 Gastro-esophageal reflux disease without esophagitis; E11.9 Type 2 diabetes mellitus without complications; I25.10 Atherosclerotic heart disease of native coronary artery without angina pectoris; Z79.899 Other long term (current) drug therapy; Z79.84 Long term (current) use of oral hypoglycemic drugs; Z87.891 Personal history of nicotine dependence
CPT/HCPCS: 00790; 47563; 36415; 74300; 76000; 78452; 80048; 82728; 82962; 83036; 83540; 83550; 84484; 85014; 85018; 85025; 85027; 85610; 85730; 87635; 88304; 93005; 93017; 94762; 96361; 96365; 96375; 96376; 99218; 99406; A9500; G2023; J1756; J7120; A4216; G0378; G0379; J2405; J2785; U0004

== ENCOUNTER 2020-01-23 17:55 | Emergency (ER) | payer MEDICAID, SELFPAY ==
[2020-01-17 15:59] VITALS: BMI 31.6
[2020-01-23 17:57] VITALS: BP 126/50; PULSE 101; RESP 20; TEMP 36.9; O2SAT 99; BMI 31.5
--- NOTE | 2020-01-23 18:09 | EKG12_ITS ---
Test Reason : CP Blood Pressure : / mmHG Vent. Rate : 104 BPM Atrial Rate : 104 BPM P-R Int : 172 ms QRS Dur : 086 ms QT Int : 346 ms P-R-T Axes : 073 078 071 degrees QTc Int : 454 ms Sinus tachycardia Otherwise normal ECG Confirmed by NORBERT FINCH ([id number]), deputy editor in chief ZAHIRA BARRIENTOS ([id number]) on 01/27/2020 11:16:01 AM Referred By: Confirmed By:NORBERT FINCH
[2020-01-23] MEDS: Ondansetron 4 MG/2 ML Vial IV (18:26)
[2020-01-23] MEDS: Morphine 4 MG/ML Syringe IV ×2 (18:26→20:56)
[2020-01-23] MEDS: Aspirin 81 MG TAB.CHEW 324 MG PO (18:26)
--- NOTE | 2020-01-23 18:35 | RAD_ITS ---
STUDY: X-RAY CHEST REASON FOR EXAM: Female, 54 years old. PT C/O EPIGASTRIC/STERNAL CHEST PAIN THAT STARTED 1 HR MANAGER HYDRAULIC. TECHNIQUE: Single frontal view of the chest. COMPARISON: None. FINDINGS: Cardiac silhouette unremarkable. Pulmonary vascularity unremarkable. Aorta atherosclerotic. No focal airspace opacities. No pleural effusions. Upper abdomen unremarkable. Osseous structures intact. No pneumothorax. RAD/Chest 1 View (Portable) IMPRESSION: No acute cardiopulmonary findings Electronically Signed: Juan Carlos Dixon, at 19:32 EDT Tel , Service support ,
[2020-01-23 18:41] VITALS: O2SAT 99
[2020-01-23 18:55] LABS: Absolute Lymphocyte Count 1.42 X10^3/uL (0.83-4.51); Absolute Neutrophil Count 3.8 X10^3/uL (2.0-7.7); Basophil# 0.03 X10^3/uL; Basophil% 0.5 % (0-1); Eosinophil# 0.16 X10^3/uL; Eosinophils% 2.6 % (0-5); Hematocrit 26.1 % (37-47); Hemoglobin 8.1 g/dL (12.0-15.0); Lymphocyte # 1.42 X10^3/ul (4.0); Lymphocyte % 23.2 % (19-41); Mean Corpuscular Hgb 31.3 pg (27.0-32.0); Mean Corpuscular Volume 100.8 fL (81-99); Mean Platelet Vol. 8.4 fl (6.2-12.0); Monocyte# 0.68 X10^3/uL; Monocyte% 11.1 % (0-10); NRBC Flagged by Analyzer 0 % (0-5); Neutrophil % 62.3 % (47-70); Platelet Count 487 K/mm3 (150-450); RBC Distribution Width CV 17.1 % (11.6-14.6); RBC Distribution Width SD 60.8 fl (35.1-43.9); Red Blood Count 2.59 M/mm3 (4.2-5.4); White Blood Count 6.1 K/mm3 (4.4-11.0)
[2020-01-23 19:09] LABS: ALB/GLOB Ratio 0.9 RATIO (0.9-2.4); AST(SGOT) 14 U/L (15-37); Alanine Aminotransfer ALT/SGPT 38 U/L (13-56); Albumin, Serum 3.2 g/dL (3.2-5.0); Alkaline Phosphatase 80 U/L (45-117); Anion Gap 9 (5-15); BUN 10 mg/dL (7-18); BUN/Creat Ratio 8.5 RATIO (10-20); Chloride 105 mmol/L (98-107); Creatinine, Serum 1.17 mg/dL (0.55-1.02); EST Glomerular Filtration Rate 51 mL/min (>60); Est Glom Filt Rate - Afr Amer 62 mL/min (>60); Estimated Creatinine Clearance 39.48 ml/min; Globulin 3.6 g/dL (2.2-4.2); Glucose 186 mg/dL (74-106); Lipase 130 U/L (73-393); Potassium 3.6 mmol/L (3.5-5.1); Protein, Total 6.8 g/dL (6.4-8.2); Sodium Level 139 mmol/L (136-145)
[2020-01-23 20:02] VITALS: RESP 18; O2SAT 99
--- NOTE | 2020-01-23 20:14 | CT_ITS ---
STUDY: CTA CHEST REASON FOR EXAM: Female, 54 years old. EPIGASTRIC PAIN AND STERNAL PAIN, MA ON MONDAY AFTER GB SX, HX HTN, HYSTERECTOMY RADIATION DOSAGE (If Supplied By Facility): CTDIvol = ( 12.28 ) mGy, DLP = ( 387.78 ) mGycm TECHNIQUE: The examination was performed with the intravenous administration of IV 100mL [id number]-370. Post-processing of the angiographic images was performed, with multiplanar reformation and 3D reconstruction. Individualized dose optimization techniques were used for this CT. COMPARISON: December 12, 2018 FINDINGS: Normal enhancement of the main pulmonary artery and right and left pulmonary arteries. Normal enhancement of the bilateral peripheral pulmonary arteries. There is no demonstrated pulmonary embolism. Normal thoracic aorta and visualized great vessels. There is no demonstrated aortic dissection. Normal heart and pericardium. Normal mediastinum. Normal hilar regions. Normal visualized trachea and bronchi. The lungs are well expanded. Moderate centrilobular emphysema is noted. Normal pleura. Normal chest wall structures. All the right seventh rib fracture. Cholecystectomy. CT/CTA Chest W/WO Contrast IMPRESSION: No demonstrated pulmonary embolism or arterial dissection. Electronically Signed: Juan Carlos Dixon, at 21:30 EDT Tel , Service support ,
[2020-01-23 21:00] VITALS: BP 103/54; PULSE 89; RESP 16; O2SAT 97
--- NOTE | 2020-01-23 21:32 | ED.DCSUM_ITS ---
- ER Visit Summary Date of Service: 01/23/20 Chief Complaint: Chest pain History of Present Illness: The patient is a 54 F with chest pain that started an hour prior to arrival. The pain has been continuous. She had similar pain after recent cholecystectomy. She had a stress test which was normal. It was felt to be noncardiac. Patient reports some mild shortness of breath. Denies any history of blood clots. Denies fevers. Denies any abdominal pain or GI symptoms. Physical Examination: Afebrile and vital signs unremarkable except for heart rate of 101. Patient appears nontoxic and in no acute distress. Heart tachycardic but regular. Lungs clear. Abdomen soft. Extremities nontender. No edema. Test Results: EKG showed sinus rhythm at a rate of 104. No sign of acute ischemia or infarction pattern. Hemoglobin stable at 8.1. Platelets 47. G lucose 186, creatinine 1.17. Hepatic panel and lipase unremarkable. Troponin normal. Chest x-ray showed nothing acute. Emergency Department Course and Treatment: Work-up was fairly unremarkable and stable. Patient was discussed with cardiology. Will check a CTA. This was negative. It is felt that this is not cardiac. No indication for further stre ss testing or cardiac testing. No indication for catheterization at this point. She will be started on Imdur per cardiology and will follow-up as an outpatient. Treatment Plan: As above Disposition: Discharge Impression: Chest pain, anemia This note was generated with [place] dictation software. It may contain incorrect words, spelling, and punctuation that were not noted in review of the chart prior to signing ED Disposition - Plan for ED Patient: Referrals: Bret You Chi, MD [Primary Care Provider] -
--- NOTE | 2020-01-23 21:34 | ED.DEP ---
ED Disposition - Plan for ED Patient: Instructions: ED Chest Pain Atypical Unkn Cause Prescriptions: Isosorbide Mononitrate [Imdur] 30 mg PO DAILY #30 tab Prescription Printed Referrals: Bret You Chi, MD [Primary Care Provider] - Elvin Mcintyre MD [STAFF PHYSICIAN] -
[2020-01-23 21:40] VITALS: BP 105/52; PULSE 98; RESP 16; O2SAT 97
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
== END 2020-01-23 21:41 | disposition home or self-care (01) ==
PROVIDERS: Emergency Provider Emergency Medicine; PCP Family Medicine Geriatric Medicine
DX: R07.9 Chest pain, unspecified (principal); D64.9 Anemia, unspecified; E11.9 Type 2 diabetes mellitus without complications; I10 Essential (primary) hypertension; E78.00 Pure hypercholesterolemia, unspecified; Z72.0 Tobacco use; Z79.82 Long term (current) use of aspirin; Z79.84 Long term (current) use of oral hypoglycemic drugs; Z79.899 Other long term (current) drug therapy
CPT/HCPCS: 36415; 71045; 71275; 80053; 83690; 84484; 85025; 93005; 96374; 96375; 96376; 99284; Q9967; A4216; J2405

== ENCOUNTER → 2020-01-23 | Outpatient (CLI) | payer MEDICAID, SELFPAY ==
[2020-01-17 15:59] VITALS: BMI 31.6
[2020-01-23 12:47] LABS: Absolute Lymphocyte Count 0.91 X10^3/uL (0.83-4.51); Absolute Neutrophil Count 3.5 X10^3/uL (2.0-7.7); Basophil# 0.02 X10^3/uL; Basophil% 0.4 % (0-1); Eosinophil# 0.16 X10^3/uL; Eosinophils% 3.1 % (0-5); Hematocrit 26.5 % (37-47); Hemoglobin 8.3 g/dL (12.0-15.0); Lymphocyte # 0.91 X10^3/ul (4.0); Lymphocyte % 17.7 % (19-41); Mean Corp Hgb Conc 31.3 g/dL (32-36); Mean Corpuscular Hgb 31.6 pg (27.0-32.0); Mean Corpuscular Volume 100.8 fL (81-99); Mean Platelet Vol. 8.6 fl (6.2-12.0); Monocyte% 9.7 % (0-10); NRBC Flagged by Analyzer 0 % (0-5); Neutrophil # 3.52 X10^3/uL (2.7-7.7); Neutrophil % 68.5 % (47-70); Platelet Count 487 K/mm3 (150-450); RBC Distribution Width CV 17.1 % (11.6-14.6); RBC Distribution Width SD 61.1 fl (35.1-43.9); Red Blood Count 2.63 M/mm3 (4.2-5.4); White Blood Count 5.1 K/mm3 (4.4-11.0)
[2020-01-23 13:09] LABS: ALB/GLOB Ratio 0.9 RATIO (0.9-2.4); AST(SGOT) 11 U/L (15-37); Alanine Aminotransfer ALT/SGPT 40 U/L (13-56); Albumin, Serum 3.2 g/dL (3.2-5.0); Alkaline Phosphatase 80 U/L (45-117); Anion Gap 9 (5-15); BUN 12 mg/dL (7-18); BUN/Creat Ratio 11.4 RATIO (10-20); Calcium,Total 8.9 mg/dL (8.5-10.1); Chloride 104 mmol/L (98-107); Creatinine, Serum 1.05 mg/dL (0.55-1.02); EST Glomerular Filtration Rate 58 mL/min (>60); Est Glom Filt Rate - Afr Amer 70 mL/min (>60); Globulin 3.4 g/dL (2.2-4.2); Glucose 100 mg/dL (74-106); Protein, Total 6.6 g/dL (6.4-8.2); Sodium Level 137 mmol/L (136-145)
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
== END | disposition home or self-care (01) ==
LOC: POLAB3 10:32
PROVIDERS: PCP Family Medicine Geriatric Medicine; Visit Provider Family Medicine Geriatric Medicine
DX: I10 Essential (primary) hypertension (principal)
CPT/HCPCS: 36415; 80053; 85025

== ENCOUNTER → 2020-01-29 | Outpatient (CLI) | payer MEDICAID, SELFPAY ==
[2020-01-23 17:57] VITALS: BMI 31.5
[2020-01-29 11:13] VITALS: BP 107/49; PULSE 94; RESP 16; TEMP 36.6; O2SAT 98; BMI 29.9
[2020-01-29] MEDS: 0.9% NaCl IVPB Med Flush (250 mL) 15 ML IV (11:15)
[2020-01-29] MEDS: 0.9% NaCl Peripheral Flush Adult/Peds IV (11:15)
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
== END | disposition home or self-care (01) ==
LOC: MEDOUTP 10:55
PROVIDERS: PCP Family Medicine Geriatric Medicine; Referring Provider Family Medicine Geriatric Medicine; Visit Provider Family Medicine Geriatric Medicine
DX: D50.9 Iron deficiency anemia, unspecified (principal)
CPT/HCPCS: 96365; J1756; J7050; A4216

== ENCOUNTER → 2020-01-31 10:23 | Outpatient (CLI) | payer MEDICAID, SELFPAY ==
[2020-01-23 17:57] VITALS: BMI 31.5
[2020-01-29 14:45] VITALS: BMI 30.4
[2020-01-31 10:39] VITALS: BP 98/49; PULSE 106; RESP 16; TEMP 36; O2SAT 97; BMI 30.4
[2020-01-31] MEDS: 0.9% NaCl Peripheral Flush Adult/Peds IV (10:43)
[2020-01-31] MEDS: 0.9% NaCl IVPB Med Flush (250 mL) 15 ML IV (10:47)
[2020-01-31 11:35] VITALS: BP 94/46; PULSE 100; RESP 16
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
== END ==
PROVIDERS: PCP Family Medicine Geriatric Medicine; Referring Provider Family Medicine Geriatric Medicine; Visit Provider Family Medicine Geriatric Medicine
DX: D50.9 Iron deficiency anemia, unspecified (principal)
CPT/HCPCS: J1756; J7050; A4216

== ENCOUNTER 2020-01-31 16:02 | Emergency (ER) | payer MEDICAID, SELFPAY ==
[2020-01-31 10:39] VITALS: BMI 30.4
[2020-01-31 16:02] VITALS: BP 123/54; PULSE 104; RESP 18; TEMP 36.4; O2SAT 97; BMI 32.5
--- NOTE | 2020-01-31 16:45 | EKG12_ITS ---
Test Reason : Blood Pressure : / mmHG Vent. Rate : 097 BPM Atrial Rate : 097 BPM P-R Int : 182 ms QRS Dur : 076 ms QT Int : 364 ms P-R-T Axes : 054 055 065 degrees QTc Int : 462 ms Normal sinus rhythm Normal ECG Confirmed by AMINATA PEDROZA, JOSE ([id number]), editor in chief TIFFANIE CARDONA ([id number]) on 02/03/2020 1:29:38 PM Referred By: Bret You Confirmed By:JOSE COATES MD
--- NOTE | 2020-01-31 16:47 | ED.VISSUMM ---
- ER Visit Summary Date of Service: 01/31/20 Chief Complaint: Chest pain History of Present Illness: The patient is a 54 F who presents with chest pain that began approximately 1 to 2 hours prior to arrival. Patient states the pain is over the lower substernal area. Patient describes the pain as sharp. Patient states that she was walking from her car after she went out to eat lunch. Patient denies any radiation of the pain. Patient states nothing makes the pain better or worse. Patient admits to nausea but denies any vomiting. Patient is to some slight shortness of breath. Patient denies any diaphoresis. Patient denies any cough or fever. Patient denies any lightheadedness or dizziness. Physical Examination: Vital signs are stable. Patient is afebrile. Patient is in no acute distress. Oral mucosa is pink and moist. Neck is supple. Trachea is midline. There is no JVD noted. Heart was regular rate and rhythm. Lungs are clear and equal bilaterally. Abdomen is soft. Bowel sounds are normal. There is no tenderness. There is no rebound or guarding noted. Skin is warm dry. Cranial nerves II through XII are intact. There are no focal motor or sensory deficits noted. Extremities are intact. There is no calf tenderness or edema. Test Results: EKG showed normal sinus rhythm with a rate of 97. There are no acute ST or T wave changes. CBC, basic metabolic profile, troponin were obtained. Hemoglobin was low at 8.6 but this is chronic for the patient. Portable chest x-ray does not show any acute cardiopulmonary process. CTA of the chest was obtained since the patient had recent cholecystectomy. There is no evidence of pulmonary embolism. This was interpreted by the radiologist and reviewed by myself. Emergency Department Course and Treatment: Patient was given aspirin and sublingual nitroglycerin by EMS. Patient was given a GI cocktail here. Patient has a HEART score of 3. Patient was advised that this is low risk for acute cardiac event. Patient was instructed to follow-up with her primary care physician in 5 to 7 days. Patient understood and was agreeable with the plan. All questions were answered. Disposition: Discharge home Impression: 1. Chest pain This note was generated with [employer] software. It may contain incorrect words, spelling, and punctuation that were not noted in review of the chart prior to signing ED Disposition - Plan for ED Patient: Disposition: Home or Assisted Living Diagnosis: Chest pain Instructions: ED Chest Pain Atypical Unkn Cause Referrals: Bret You Chi, MD [Primary Care Provider] - 5-7 Days
--- NOTE | 2020-01-31 16:50 | RAD_ITS ---
STUDY: X-RAY CHEST REASON FOR EXAM: Female, 54 years old. CP and SOB -- HX OF HTN TECHNIQUE: Single frontal view of the chest. COMPARISON: January 23, 2020 FINDINGS: The lungs are clear and expanded. There is no demonstrated pleural abnormality. Normal size heart. Normal mediastinum and lauryn. Normal visualized pulmonary arteries. Normal visualized aortic arch and descending thoracic aorta. Normal visualized thoracic spine. Old fracture seventh rib on the right unchanged There is no demonstrated abnormality of the visualized soft tissue structures of the upper abdomen. RAD/Chest 1 View (Portable) IMPRESSION: No acute disease Electronically Signed: John Parr MD at 17:12 EDT , Service support ,
--- NOTE | 2020-01-31 16:59 | CT_ITS ---
STUDY: CTA CHEST REASON FOR EXAM: Female, 54 years old. LOWER SUBSTERNAL CP, SOB, NSTEMI 01/17/20. COPD RADIATION DOSAGE (If Supplied By Facility): CTDIvol = ( 6.88 ) mGy, DLP = ( 219.36 ) mGycm TECHNIQUE: The examination was performed with the intravenous administration of IV 100mL Isovue-370. Post-processing of the angiographic images was performed, with multiplanar reformation and 3D reconstruction. Individualized dose optimization techniques were used for this CT. COMPARISON: None. FINDINGS: Normal enhancement of the main pulmonary artery and right and left pulmonary arteries. Normal enhancement of the bilateral peripheral pulmonary arteries. There is no demonstrated pulmonary embolism. Normal thoracic aorta and visualized great vessels. There is no demonstrated aortic dissection. Normal heart and pericardium. Normal mediastinum. Normal hilar regions. Normal visualized trachea and bronchi. The lungs are well expanded. Normal pulmonary parenchyma. Normal pleura. Normal chest wall structures. Mild kyphoscoliosis. Normal visualized upper abdomen. CT/CTA Chest W/WO Contrast IMPRESSION: No acute disease Electronically Signed: John Parr MD at 18:15 EDT , Service support ,
[2020-01-31] MEDS: Mag Hydrox/Al Hydrox/Simeth 30 ML UDC PO (17:00)
[2020-01-31 17:02] VITALS: BP 99/52; PULSE 94; RESP 18; O2SAT 97
[2020-01-31 17:04] LABS: Basophil# 0.05 X10^3/uL; Eosinophil# 0.24 X10^3/uL; Eosinophils% 4.7 % (0-5); Hematocrit 28.3 % (37-47); Hemoglobin 8.6 g/dL (12.0-15.0); Lymphocyte % 27.1 % (19-41); Mean Corp Hgb Conc 30.4 g/dL (32-36); Mean Corpuscular Hgb 30.8 pg (27.0-32.0); Mean Corpuscular Volume 101.4 fL (81-99); Mean Platelet Vol. 8.4 fl (6.2-12.0); Monocyte# 0.45 X10^3/uL; Monocyte% 8.7 % (0-10); NRBC Flagged by Analyzer 0 % (0-5); Neutrophil # 2.99 X10^3/uL (2.7-7.7); Neutrophil % 57.9 % (47-70); Platelet Count 530 K/mm3 (150-450); RBC Distribution Width CV 17.1 % (11.6-14.6); RBC Distribution Width SD 62.2 fl (35.1-43.9); Red Blood Count 2.79 M/mm3 (4.2-5.4); White Blood Count 5.2 K/mm3 (4.4-11.0)
[2020-01-31 17:10] LABS: Anion Gap 10 (5-15); BUN 18 mg/dL (7-18); BUN/Creat Ratio 15.4 RATIO (10-20); Calcium,Total 8.8 mg/dL (8.5-10.1); Chloride 103 mmol/L (98-107); Creatinine, Serum 1.17 mg/dL (0.55-1.02); EST Glomerular Filtration Rate 51 mL/min (>60); Est Glom Filt Rate - Afr Amer 62 mL/min (>60); Estimated Creatinine Clearance 39.48 ml/min; Glucose 165 mg/dL (74-106); Sodium Level 135 mmol/L (136-145)
[2020-01-31 18:00] VITALS: BP 103/48; PULSE 91; RESP 19; O2SAT 99
[2020-01-31] MEDS: 0.9% Normal Saline 1,000 ML 1000 ML IV (18:08)
[2020-01-31 19:21] VITALS: BP 109/50; PULSE 79; RESP 20; O2SAT 98
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
== END 2020-01-31 19:51 | disposition home or self-care (01) ==
PROVIDERS: Emergency Provider Emergency Medicine; PCP Family Medicine Geriatric Medicine
DX: R07.9 Chest pain, unspecified (principal); D50.9 Iron deficiency anemia, unspecified; E66.9 Obesity, unspecified; E11.9 Type 2 diabetes mellitus without complications; I10 Essential (primary) hypertension; E78.00 Pure hypercholesterolemia, unspecified; Z72.0 Tobacco use
CPT/HCPCS: 96365; 71045; 71275; 80048; 84484; 85025; 93005; 96360; 99285; J1756; J7030; J7050; Q9967; A4216

== ENCOUNTER → 2020-02-03 11:16 | Outpatient (CLI) | payer MEDICAID, SELFPAY ==
[2020-01-23 17:57] VITALS: BMI 31.5
[2020-01-31 16:02] VITALS: BMI 32.5
[2020-02-03 11:33] VITALS: BP 103/57; PULSE 94; RESP 16; TEMP 36.7; O2SAT 99; BMI 29.9
[2020-02-03] MEDS: 0.9% NaCl IVPB Med Flush (250 mL) 15 ML IV (11:46)
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
== END ==
PROVIDERS: PCP Family Medicine Geriatric Medicine; Referring Provider Family Medicine Geriatric Medicine; Visit Provider Family Medicine Geriatric Medicine
DX: D50.9 Iron deficiency anemia, unspecified (principal)
CPT/HCPCS: 96365; J1756; J7050

== ENCOUNTER → 2020-02-05 12:11 | Outpatient (CLI) | payer MEDICAID, SELFPAY ==
[2020-01-23 17:57] VITALS: BMI 31.5
[2020-02-03 11:33] VITALS: BMI 29.9
[2020-02-05 12:42] VITALS: BP 131/57; PULSE 98; RESP 18; TEMP 36.7; O2SAT 97; BMI 29.9
[2020-02-05] MEDS: 0.9% NaCl IVPB Med Flush (250 mL) 15 ML IV (12:55)
[2020-02-05] MEDS: 0.9% NaCl Peripheral Flush Adult/Peds IV (12:56)
[2020-02-05 13:32] VITALS: BP 119/49; PULSE 94; RESP 16
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
== END ==
PROVIDERS: PCP Family Medicine Geriatric Medicine; Referring Provider Family Medicine Geriatric Medicine; Visit Provider Family Medicine Geriatric Medicine
DX: D50.9 Iron deficiency anemia, unspecified (principal)
CPT/HCPCS: 96365; J1756; J7050; A4216

== ENCOUNTER → 2020-02-07 | Outpatient (CLI) | payer MEDICAID, SELFPAY ==
[2020-01-23 17:57] VITALS: BMI 31.5
[2020-02-07 09:23] VITALS: BMI 30.4
[2020-02-07 10:04] VITALS: BP 129/50; PULSE 105; RESP 18; TEMP 36; O2SAT 100
[2020-02-07] MEDS: 0.9% NaCl Peripheral Flush Adult/Peds IV (10:04)
[2020-02-07] MEDS: 0.9% NaCl IVPB Med Flush (250 mL) 15 ML IV (10:04)
[2020-02-07 10:06] VITALS: BMI 29.2
[2020-02-07 10:18] LABS: Absolute Lymphocyte Count 1.49 X10^3/uL (0.83-4.51); Absolute Neutrophil Count 3.9 X10^3/uL (2.0-7.7); Basophil# 0.04 X10^3/uL; Basophil% 0.6 % (0-1); Eosinophil# 0.27 X10^3/uL; Eosinophils% 4.3 % (0-5); Hematocrit 31.4 % (37-47); Hemoglobin 9.7 g/dL (12.0-15.0); Lymphocyte # 1.49 X10^3/ul (4.0); Lymphocyte % 23.6 % (19-41); Mean Corp Hgb Conc 30.9 g/dL (32-36); Mean Corpuscular Hgb 31.3 pg (27.0-32.0); Mean Corpuscular Volume 101.3 fL (81-99); Mean Platelet Vol. 8.1 fl (6.2-12.0); Monocyte# 0.58 X10^3/uL; Monocyte% 9.2 % (0-10); NRBC Flagged by Analyzer 0 % (0-5); Neutrophil # 3.89 X10^3/uL (2.7-7.7); Neutrophil % 61.7 % (47-70); POSITIVE MORPHOLOGY YES; Platelet Count 416 K/mm3 (150-450); RBC Distribution Width CV 18.1 % (11.6-14.6); RBC Distribution Width SD 65.2 fl (35.1-43.9); White Blood Count 6.3 K/mm3 (4.4-11.0)
[2020-02-07 10:25] LABS: Differential Indicated SCAN CRITERIA MET
[2020-02-07 10:40] LABS: Anisocytosis 2+; Macrocytosis 1+; Ovalocyte 1+; Red Cell Morphology N CHROM NORMAL (NORM C&C)
[2020-02-07 10:52] LABS: Anion Gap 8 (5-15); BUN 19 mg/dL (7-18); BUN/Creat Ratio 17.8 RATIO (10-20); Chloride 104 mmol/L (98-107); Creatinine, Serum 1.07 mg/dL (0.55-1.02); EST Glomerular Filtration Rate 57 mL/min (>60); Est Glom Filt Rate - Afr Amer 69 mL/min (>60); Estimated Creatinine Clearance 43.17 ml/min; Glucose 159 mg/dL (74-106); Potassium 4.3 mmol/L (3.5-5.1); Sodium Level 138 mmol/L (136-145)
[2020-02-07 10:57] VITALS: BP 109/52
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
== END | disposition home or self-care (01) ==
LOC: MEDOUTP 09:47
PROVIDERS: Internal Medicine Cardiovascular Disease; PCP Family Medicine Geriatric Medicine; Referring Provider Family Medicine Geriatric Medicine; Visit Provider Family Medicine Geriatric Medicine
DX: D50.9 Iron deficiency anemia, unspecified (principal); R07.9 Chest pain, unspecified
CPT/HCPCS: 96365; 80048; 85025; J1756; J7050; A4216

== ENCOUNTER 2020-02-10 07:48 | Day surgery (SDC) | payer MEDICAID, SELFPAY ==
[2020-01-29 14:45] VITALS: BMI 30.4
[2020-02-07 09:23] VITALS: BMI 30.4
[2020-02-07 10:06] VITALS: BMI 29.2
--- NOTE | 2020-02-10 09:11 | CL.D_ITS ---
Patient Name: FLORINDA LOPEZ Study Date: 02/10/2020 Performing: Elvin Mcintyre MD Ht: 59.84 inches 152 cm : 1965 Wt: 156.53 lbs 71 kg Age: 54 Gender: female BSA: 1.68 PROCEDURE(S) PERFORMED MN56-XZQ/COR/LV CLINICAL PROFILE AND INDICATIONS Indications: New Onset Angina <= 2 months Heart Failure: None Stress/Imaging Stress/Image Study Performed: No CAD Presentations: Symptom unlikely to be ischemic. CONCLUSIONS Normal coronary arteries Normal LV size, wall motion,and systolic function RECOMMENDATIONS Medical therapy DESCRIPTION OF PROCEDURE The patient arrived to the procedure lab. The risks and benefits of the procedure as well as a full d escription of our services here and current unavailability of surgical backup were fully explained to the patient and/or their significant other prior to the catheterization. The Timeout was completed, verifying the correct patient and procedure. The patient's procedural site was prepped and draped in the usual fashion. Local anesthetic was given subcutaneously to right radial region with Lidocaine 2% . Using a modified Seldinger technique, arterial access was obtained via the right radial artery, a 6 Fr sheath was inserted. Right Coronary Artery selective angiography was then performed in multiple v iews using a 5 Fr. 4.0 [place] catheter. Left Coronary Artery selective angiography was performed in mu ltiple views using a 5 Fr. 4.0 [place] catheter. Left Ventriculography was performed in [place] projection using a 5 Fr. Pigtail catheter. LV to AO pullback pressures were then recorded.The arterial sheath was pulled and manual compression applied until hemostasis is achieved. 9cc air CORONARY ANGIOGRAPHY DOMINANCE: Right Dominant LEFT HEART ASSESSMENT Left Ventricular Ejection Fraction: by LV Gram 60 % Normal LV wall motion Normal Left Ventricular systolic function Normal Left Ventricular systolic function LEFT MAIN: Angiographically normal LEFT ANTERIOR DESCENDING ARTERY: Angiographically normal CIRCUMFLEX ARTERY: Angiographically normal RIGHT CORONARY ARTERY: Angiographically normal COMPLICATIONS No Complications PROCEDURE MEDICATIONS Fentanyl 50 mcg IV Versed 1 mg IV Oxygen: 2 L/min via nasal cannula Heparin diluted in 23cc Heparinized saline. Patient given 10cc IA of this solution. 02/10/2020 08:54: 24 Verapamil 2.5mg, Ntg 100mcgs, 2000 units of Heparin diluted in 23cc Heparinized saline. Patient give n 10cc IA of this solution. 02/10/2020 08:54:24 SUMMARY OF HEMODYNAMIC DATA Time AIR REST ECG 08:10:54 AO 97/59 (75) SA 08:56:47 LV 102/1, 9 09:01:50 LV 106/0, 11 09:01:58 LVp 77/5, 7 09:02:36 AOp 102/52 (74) 09:02:41 Signed By Evlin Mcintyre MD On 02/10/2020 09:10:31 Elvin Mcintyre MD
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
== END 2020-02-10 10:50 | disposition home or self-care (01) ==
PROVIDERS: PCP Family Medicine Geriatric Medicine; Referring Provider Internal Medicine Cardiovascular Disease; Visit Provider Internal Medicine Cardiovascular Disease
DX: I20.9 Angina pectoris, unspecified (principal); R07.9 Chest pain, unspecified; I25.2 Old myocardial infarction; E78.5 Hyperlipidemia, unspecified; D64.9 Anemia, unspecified; J44.9 Chronic obstructive pulmonary disease, unspecified; M19.90 Unspecified osteoarthritis, unspecified site; F32.9 Major depressive disorder, single episode, unspecified; E11.9 Type 2 diabetes mellitus without complications; E03.9 Hypothyroidism, unspecified; F17.200 Nicotine dependence, unspecified, uncomplicated; Z79.82 Long term (current) use of aspirin; Z79.899 Other long term (current) drug therapy; Z79.84 Long term (current) use of oral hypoglycemic drugs; Z79.51 Long term (current) use of inhaled steroids
CPT/HCPCS: 93458; 99152; 99153; J7040; Q9967; C1769; C1894

== ENCOUNTER → 2020-02-12 | Outpatient (CLI) | payer MEDICAID, SELFPAY ==
[2020-02-07 10:06] VITALS: BMI 29.2
[2020-02-12 12:43] LABS: Ferritin 314 ng/mL (8-252); Hematocrit 32.1 % (37-47); Hemoglobin 10.2 g/dL (12.0-15.0); Iron 84 ug/dL (50-170); Iron Binding Capacity,Total 363 ug/dL (250-450)
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
== END | disposition home or self-care (01) ==
LOC: POLAB3 11:30
PROVIDERS: PCP Family Medicine Geriatric Medicine; Visit Provider Family Medicine Geriatric Medicine
DX: D50.9 Iron deficiency anemia, unspecified (principal)
CPT/HCPCS: 36415; 82728; 83540; 83550; 85014; 85018

== ENCOUNTER 2020-03-01 12:54 | Emergency (ER) | payer MEDICAID, SELFPAY ==
[2020-02-07 10:06] VITALS: BMI 29.2
[2020-03-01 12:55] VITALS: BP 133/67; PULSE 96; RESP 18; TEMP 36.6; O2SAT 98; BMI 31.2
--- NOTE | 2020-03-01 13:05 | ED.VIS.GEN ---
History of Present Illness Chief Complaint: Allergic Reaction Informant: Patient Onset: Yesterday Context: Gradual Onset Current Severity: Moderate Maximum Severity: Moderate Narrative: Patient presents secondary to allergic reaction. She started 2 new medications on February 10, hydroxyzine and buspirone. Last evening she developed hives on her arms, back, and thighs. She does not know of any other new medications or exposures. She denies shortness of breath or wheezing. She did drive herself to the emergency room. - Past Medical History (1) Hypothyroid Status: Chronic (2) History of non-ST elevation myocardial infarction (NSTEMI) Status: Chronic (3) COPD (chronic obstructive pulmonary disease) with emphysema Status: Chronic (4) Chronic anemia Status: Chronic (5) Dyslipidemia Status: Chronic Past Medical History - Allergies and Home Meds Allergies/Adverse Reactions: Allergies prochlorperazine edisylate [From Compazine] Allergy (Verified 03/01/20 12:57) Rash prochlorperazine maleate [From Compazine] Allergy (Verified 03/01/20 12:57) Rash Primary Care Physician: Bret You Chi, MD [Primary Care Provider] - Prior records reviewed: Yes Surgical History: hysterectomy Smoking Status: Current every day smoker - Family History Maternal Family History: Family History (Last Reviewed 01/29/20 @ 15:[address] Elvin Mcintyre MD) Father Myocardial infarction CVA (cerebral vascular accident) Mother Seizures Heart disease Sister Seizures Family History: Reports: Heart Disease - s/p stents Paternal Family History: Family History (Last Reviewed 01/29/20 @ 15:[address] Elvin Mcintyre MD) Father Myocardial infarction CVA (cerebral vascular accident) Mother Seizures Heart disease Sister Seizures Family History: Reports: - - Denies history of lung cancer. Review of Systems General: Denies: Chills, Fever Eyes: Denies: Visual changes - bilaterally ENT: Denies: Bilateral ear pain Cardiovascular: Denies: Chest pain Respiratory: Denies: Dyspnea, Cough Gastrointestinal: Denies: Abdominal pain, Nausea, Vomiting, Diarrhea Musculoskeletal: Denies: Extremity Pain Skin: Reports: Rash Neurological: Denies: Headache Hematologic: Denies: Easy bruising, Easy bleeding Allergy: Denies: Uticaria Physical Exam Vital Signs/Narrative: Vital Signs Temp Pulse Resp BP Pulse Ox 03/01/20 12:55 97.9 F 96 18 133/67 H 98 Inital Vital Signs reviewed: Yes General: Well nourished, Well developed Head: Normocephalic ENT: Moist mucous membranes Neck: Supple Cardiovascular: Regular rate, Regular rhythm Respiratory: No distress, CTA bilaterally Abdomen: Soft, Nontender Extremities: Nontender Skin: - - Urticarial lesions noted to the bilateral forearms, upper thoracic region posteriorly. She also has lesions on her thighs. No sign of secondary infection. No vesicles or blisters. Psychological: Normal affect Diagnostic/Tx/Re-eval - Medical Decision Making Patient was given p.o. Pepcid and prednisone here. He did drive himself to the hospital so was not given Benadryl here. On repeat evaluation she has mild improvement. Should be given a dose of Benadryl to take when she gets home. Prescriptions will be sent to the pharmacy for her. She is not to take her hydroxyzine or buspirone. She is to call Dr. John tomorrow. ED Disposition - Plan for ED Patient: Disposition: Home or Assisted Living Diagnosis: Urticaria Instructions: ED URTICARIA Prescriptions: DiphenhydrAMINE [Benadryl] 50 mg PO BID PRN PRN #14 cap PRN Reason: Allergies Transmission Status: Pending to [facility] [address] Prednisone [Deltasone] 40 mg PO DAILY #10 tab Transmission Status: Pending to [facility] [address] Famotidine [Pepcid] 20 mg PO BID #14 tab Transmission Status: Pending to [facility] [address] Referrals: Bret You Chi, MD [Primary Care Provider] - As soon as possible Additional Instructions: Do not take your Hydroxyzine or Buspirone. Call Dr You tomorrow with an update.
[2020-03-01] MEDS: Famotidine 20 MG Tablet 40 MG PO (13:46)
[2020-03-01] MEDS: predniSONE 20 MG Tablet 60 MG PO (13:46)
[2020-03-01] MEDS: DiphenhydrAMINE 25 MG Capsule 50 MG PO (14:34)
== END 2020-03-01 14:38 | disposition home or self-care (01) ==
PROVIDERS: Emergency Provider Emergency Medicine; PCP Family Medicine Geriatric Medicine
DX: L50.0 Allergic urticaria (principal); E03.9 Hypothyroidism, unspecified; I25.2 Old myocardial infarction; J44.9 Chronic obstructive pulmonary disease, unspecified; E78.5 Hyperlipidemia, unspecified; F17.200 Nicotine dependence, unspecified, uncomplicated; Z79.51 Long term (current) use of inhaled steroids; Z79.899 Other long term (current) drug therapy
CPT/HCPCS: 99282

== ENCOUNTER → 2020-03-11 | Outpatient (CLI) | payer MEDICAID, SELFPAY ==
[2020-03-01 12:55] VITALS: BMI 31.2
[2020-03-11 12:08] LABS: Absolute Lymphocyte Count 1.11 X10^3/uL (0.83-4.51); Basophil# 0.02 X10^3/uL; Basophil% 0.3 % (0-1); Eosinophil# 0.21 X10^3/uL; Eosinophils% 3.6 % (0-5); Hematocrit 33.2 % (37-47); Hemoglobin 10.8 g/dL (12.0-15.0); Lymphocyte # 1.11 X10^3/ul (4.0); Lymphocyte % 18.9 % (19-41); Mean Corp Hgb Conc 32.5 g/dL (32-36); Mean Corpuscular Hgb 33.4 pg (27.0-32.0); Mean Corpuscular Volume 102.8 fL (81-99); Mean Platelet Vol. 8.4 fl (6.2-12.0); Monocyte# 0.54 X10^3/uL; Monocyte% 9.2 % (0-10); NRBC Flagged by Analyzer 0 % (0-5); Neutrophil # 3.95 X10^3/uL (2.7-7.7); Neutrophil % 67.3 % (47-70); Platelet Count 353 K/mm3 (150-450); RBC Distribution Width SD 63.5 fl (35.1-43.9); Red Blood Count 3.23 M/mm3 (4.2-5.4); White Blood Count 5.9 K/mm3 (4.4-11.0)
[2020-03-11 12:34] LABS: ALB/GLOB Ratio 1.1 RATIO (0.9-2.4); AST(SGOT) 12 U/L (15-37); Alanine Aminotransfer ALT/SGPT 25 U/L (13-56); Albumin, Serum 3.2 g/dL (3.2-5.0); Alkaline Phosphatase 87 U/L (45-117); Anion Gap 7 (5-15); BUN 24 mg/dL (7-18); BUN/Creat Ratio 27.4 RATIO (10-20); Calcium,Total 8.5 mg/dL (8.5-10.1); Chloride 103 mmol/L (98-107); Creatinine, Serum 0.88 mg/dL (0.55-1.02); EST Glomerular Filtration Rate 71 mL/min (>60); Est Glom Filt Rate - Afr Amer 86 mL/min (>60); Globulin 2.9 g/dL (2.2-4.2); Glucose 98 mg/dL (74-106); Potassium 4.4 mmol/L (3.5-5.1); Protein, Total 6.1 g/dL (6.4-8.2); Sodium Level 134 mmol/L (136-145); Thyroid Stim Hormone (TSH) 1.59 uIU/mL (0.358-3.74)
== END | disposition home or self-care (01) ==
LOC: POLAB3 08:53
PROVIDERS: PCP Family Medicine Geriatric Medicine; Visit Provider Family Medicine Geriatric Medicine
DX: E11.9 Type 2 diabetes mellitus without complications (principal); I10 Essential (primary) hypertension
CPT/HCPCS: 36415; 80053; 84443; 85025

== ENCOUNTER → 2020-03-30 | Outpatient (CLI) | payer MEDICAID, SELFPAY ==
--- NOTE | 2020-03-30 08:00 | MASS_PTH ---
PATIENT: FLORINDA LOPEZ LOC: [facility] U#:[id number] AGE/SX: 54/F ROOM: RE03/30/[address]: Dr. Odell Crystal MD : 1965 BED: DIS: 03/30/2020 SPEC #: [id number] RECD: 03/31/20 07:26 STATUS: EILEEN JIMBO #: [id number] SHARON: 03/30/20 08:[address]: Odell Crystal DEPT: SURGICAL PATHOLOGY RECD BY: Ashwin Parra ENTERED: 03/31/20 10:00 SP TYPE: Mass OTHR DR: Dr. Bret You MD Tissues: Right arm (tissue only) Procedures: Surgery Specimen Level III HEADER OPERATION: Excision of right upper arm lesion of subcutaneous tissue PRE-OP DIAGNOSIS: Lesion of subcutaneous tissue TISSUE SUBMITTED: Right upper arm mass MICROSCOPIC DIAGNOSIS Right upper arm mass, excision: Mature adipose tissue, consistent with lipoma. SJ:tin 04/01/20 MICROSCOPIC DESCRIPTION Slides are reviewed. GROSS DESCRIPTION Received in fixative is one container labeled with the patient's name and designated right upper arm. The specimen consists of a piece of yellow adipose tissue measuring 1.5 x 1.1 x 1 cm. The specimen is serially sectioned and reveal yellow adipose cut surfaces without area of hemorrhage, necrosis or cystic degeneration. A small piece of soft tissue is also noted measuring 1 x 0.2 x 0.1 cm. The entire specimen is submitted in one cassette. / KRISTY:tin 03/31/20 TC:1 CPT: 83164
[2020-03-30 08:14] VITALS: BMI 31.2
== END | disposition home or self-care (01) ==
LOC: LABSPEC 03-31 09:53
PROVIDERS: PCP Family Medicine Geriatric Medicine; Visit Provider Surgery
DX: L98.9 Disorder of the skin and subcutaneous tissue, unspecified (principal)
CPT/HCPCS: 88304; 88305

== ENCOUNTER → 2020-04-09 | Outpatient (CLI) | payer MEDICAID, SELFPAY | END | disposition home or self-care (01) | LOC: SL 22:55 | PROVIDERS: PCP Family Medicine Geriatric Medicine; Referring Provider Family Medicine Geriatric Medicine; Visit Provider Family Medicine Geriatric Medicine | DX: G47.30 Sleep apnea, unspecified (principal) | CPT/HCPCS: 95810 ==

== ENCOUNTER → 2020-04-16 | Outpatient (CLI) | payer MEDICAID, SELFPAY ==
[2020-04-06 12:53] VITALS: BMI 31.2
--- NOTE | 2020-04-16 09:30 | RAD_ITS ---
STUDY: X-RAY - PELVIS REASON FOR EXAM: Female, 54 years old. Lower back pain X1 WEEK, no known injury. TECHNIQUE: One view of the pelvis was obtained. COMPARISON: None. FINDINGS: There is a non-specific bowel gas pattern. Normal visualized soft tissue structures. Normal bilateral iliac wings, sacroiliac joints and visualized sacrum. Normal visualized bilateral superior and inferior pubic rami. Normal pubic symphysis. Normal ischial tuberosities. Normal visualized right femoral head. Normal right acetabulum. Normal right hip joint. Normal visualized left femoral head. Normal left acetabulum. Normal left hip joint. RAD/Pelvis 1 or 2 Views IMPRESSION: Within normal limits x-ray examination of the pelvis. Electronically Signed: Ellie Goncalves MD at 20:59 EDT Tel , Service support ,
== END | disposition home or self-care (01) ==
LOC: RAD 09:28
PROVIDERS: PCP Family Medicine Geriatric Medicine; Referring Provider Anesthesiology Pain Medicine; Visit Provider Anesthesiology Pain Medicine
DX: M54.5 Low back pain (principal)
CPT/HCPCS: 72170

== ENCOUNTER 2020-04-24 19:39 | Emergency (ER) | payer MEDICAID, SELFPAY ==
[2020-04-06 12:53] VITALS: BMI 31.2
[2020-04-24 19:40] VITALS: BP 130/71; PULSE 90; RESP 16; TEMP 36.4; O2SAT 99; BMI 28.3
--- NOTE | 2020-04-24 19:58 | ED.DCSUM_ITS ---
- ER Visit Summary Date of Service: 04/24/20 Chief Complaint: Right forearm wounds History of Present Illness: The patient is a 54 F who presents with wounds to her right distal forearm that have been constant for the past 2 weeks. Patient states she has not seen her primary care physician for this. Patient states she has been using triple antibiotic and Vaseline ointment to the area. Patient states they do not appear to be healing. Patient describes her pain as throbbing. Patient states her pain is worse whenever she bumps it. Patient denies any paresthesias or weakness. Patient denies any discharge or drainage. Patient denies any fevers or chills. Patient is unsure of her last tetanus but thinks it was more than 10 years ago. Physical Examination: Vital signs are stable. Patient is afebrile. Patient is in no acute distress. Skin is warm and dry. There are 2 superficial ulcerations over the distal forearm on the dorsal and radial aspects. There is some mild bleeding. There is some mild surrounding erythema. There is no discharge or drainage. There is full range of motion of the right forearm, elbow, wrist, and hand. Radial pulses are equal bilaterally. Sensation was intact to light touch in the radial, median, and ulnar areas. Strength is 5/5 in the radial, median, and ulnar areas. Capillary refill is less than 2 seconds in all digits. Emergency Department Course and Treatment: The wounds were cleaned and dressed with bacitracin dressings. Patient was given a tetanus booster. Patient was instructed to follow-up with her primary care physician in 5 to 7 days. Patient was given a dose of Keflex here and a prescription for Keflex. Patient understood and was agreeable with the plan. All questions were answered. Disposition: Discharge home Impression: Open wounds right forearm This note was generated with [employer] dictation software. It may contain incorrect words, spelling, and punctuation that were not noted in review of the chart prior to signing ED Disposition - Plan for ED Patient: Disposition: Home or Assisted Living Diagnosis: Open wound of right forearm Instructions: ED Ulcer Skin Simple Prescriptions: Cephalexin [Keflex] 500 mg PO Q6 #20 cap Prescription Printed Referrals: Bret You Chi, MD [Primary Care Provider] - 5-7 Days
[2020-04-24] MEDS: Diphth,Pertuss(Acell),Tet Vac 0.5 ML Vial IM (20:23)
[2020-04-24] MEDS: Cephalexin 250 MG Capsule 500 MG PO (20:23)
[2020-04-24] MEDS: BACITRACIN 15 GM Tube 1 APPLIC TOPICAL (20:24)
== END 2020-04-24 20:38 | disposition home or self-care (01) ==
LOC: ED 20:05
PROVIDERS: Emergency Provider Emergency Medicine; PCP Family Medicine Geriatric Medicine
DX: S51.801A Unspecified open wound of right forearm, initial encounter (principal); Z23 Encounter for immunization; K21.9 Gastro-esophageal reflux disease without esophagitis; E11.9 Type 2 diabetes mellitus without complications; E78.00 Pure hypercholesterolemia, unspecified; E03.9 Hypothyroidism, unspecified; Z72.0 Tobacco use; Z79.84 Long term (current) use of oral hypoglycemic drugs; Z79.899 Other long term (current) drug therapy; X58.XXXA Exposure to other specified factors, initial encounter; Y93.9 Activity, unspecified; Y92.89 Other specified places as the place of occurrence of the external cause; Y99.8 Other external cause status
CPT/HCPCS: 90471; 90715; 99283

== ENCOUNTER → 2020-05-26 | Outpatient (CLI) | payer MEDICAID, SELFPAY ==
--- NOTE | 2020-05-26 14:40 | RAD_ITS ---
STUDY: X-RAY - LUMBAR SPINE REASON FOR EXAM: Female, 54 years old. Sciatica, left leg numbness TECHNIQUE: 3 view(s) of the lumbar spine were obtained. COMPARISON: Comparison is made with prior study dated 04/18/2019. FINDINGS: Normal lumbar lordosis. There is no substantial scoliosis. There is a normal alignment of the vertebrae. Mild anterior spondylosis at the L3-L4 level. Normal disc space heights. Mild degenerative changes of the sacroiliac joints bilaterally.. The soft tissue structures are unremarkable. RAD/Lumbar Spine 2 or 3 Views IMPRESSION: Mild degenerative changes with spondylosis at the L3-L4 and L4-L5 levels. Electronically Signed: Agus Ruelas, at 14:30 EDT , Service support ,
== END | disposition home or self-care (01) ==
LOC: RAD 14:33
PROVIDERS: PCP Family Medicine Geriatric Medicine; Referring Provider Family Medicine Geriatric Medicine; Visit Provider Family Medicine Geriatric Medicine
DX: M54.30 Sciatica, unspecified side (principal)
CPT/HCPCS: 72100

== ENCOUNTER → 2020-06-10 | Outpatient (CLI) | payer MEDICAID, SELFPAY ==
[2020-06-10 09:41] VITALS: BMI 29.2
[2020-06-10 12:05] LABS: Absolute Lymphocyte Count 1.31 X10^3/uL (0.83-4.51); Absolute Neutrophil Count 3.2 X10^3/uL (2.0-7.7); Basophil# 0.03 X10^3/uL; Basophil% 0.6 % (0-1); Eosinophils% 3.8 % (0-5); Hematocrit 32.9 % (37-47); Hemoglobin 10.6 g/dL (12.0-15.0); Lymphocyte # 1.31 X10^3/ul (4.0); Mean Corp Hgb Conc 32.2 g/dL (32-36); Mean Corpuscular Volume 105.4 fL (81-99); Mean Platelet Vol. 8.4 fl (6.2-12.0); Monocyte# 0.49 X10^3/uL; Monocyte% 9.3 % (0-10); NRBC Flagged by Analyzer 0 % (0-5); Neutrophil # 3.19 X10^3/uL (2.7-7.7); Neutrophil % 60.7 % (47-70); Platelet Count 442 K/mm3 (150-450); RBC Distribution Width CV 15.9 % (11.6-14.6); RBC Distribution Width SD 61.4 fl (35.1-43.9); Red Blood Count 3.12 M/mm3 (4.2-5.4); White Blood Count 5.3 K/mm3 (4.4-11.0)
[2020-06-10 12:54] LABS: ALB/GLOB Ratio 1.1 RATIO (0.9-2.4); AST(SGOT) 9 U/L (15-37); Alanine Aminotransfer ALT/SGPT 24 U/L (13-56); Albumin, Serum 3.5 g/dL (3.2-5.0); Alkaline Phosphatase 87 U/L (45-117); Anion Gap 6 (5-15); BUN 8 mg/dL (7-18); BUN/Creat Ratio 7.8 RATIO (10-20); Calcium,Total 8.9 mg/dL (8.5-10.1); Chloride 106 mmol/L (98-107); Creatinine, Serum 1.02 mg/dL (0.55-1.02); EST Glomerular Filtration Rate 60 mL/min (>60); Est Glom Filt Rate - Afr Amer 72 mL/min (>60); Globulin 3.2 g/dL (2.2-4.2); Glucose 76 mg/dL (74-106); Potassium 4.7 mmol/L (3.5-5.1); Protein, Total 6.7 g/dL (6.4-8.2); Sodium Level 138 mmol/L (136-145)
== END | disposition home or self-care (01) ==
LOC: POLAB3 09:41
PROVIDERS: PCP Family Medicine Geriatric Medicine; Visit Provider Family Medicine Geriatric Medicine
DX: I10 Essential (primary) hypertension (principal); E11.9 Type 2 diabetes mellitus without complications
CPT/HCPCS: 36415; 80053; 84443; 85025

== ENCOUNTER → 2020-07-06 09:54 | Outpatient (CLI) | payer MEDICAID, SELFPAY ==
[2020-06-17 11:49] VITALS: BMI 30.7
--- NOTE | 2020-07-07 16:31 | PFTCOMP_ITS ---
COMPLETE PULMONARY FUNCTION TEST INTERPRETATION Brief HPI: Patient is a 55 year old female, currently under the care of myself, who presents to [facility] for complete pulmonary function tests secondary to diagnosis of dyspnea. Respiratory therapist reports good effort and reproducible results. Interpretation: Forced expiration spirometry shows no large airways obstructive ventilatory defect with an FEV1 of 83% predicted. There is no significant bronchodilator response by strict ATS criteria. Spirograms are of good quality and plateau slowly, indicating slowly emptying areas of the lungs. The respiratory flow volume loop shows decreased expiratory flow rates at all lung volumes consistent with airway obstruction. Lung volumes by body plethysmography show a normal total lung capacity at 4.45 L, 108% predicted. All other lung volumes are within normal limits. Diffusion capacity by carbon monoxide is at the lower limit of normal at 68% predicted. The airway resistance is slightly elevated. Compared to previous pulmonary function tests from 11/15/2016, there is been a significant improvement in hyperinflation and air trapping. Impression: Isolated reduction in diffusion capacity, with some stigmata of possible small airways disease and significant improvement compared to testing in 2017.
== END ==
PROVIDERS: PCP Family Medicine Geriatric Medicine; Referring Provider Internal Medicine Critical Care Medicine; Visit Provider Internal Medicine Critical Care Medicine
DX: G47.33 Obstructive sleep apnea (adult) (pediatric) (principal); J43.2 Centrilobular emphysema
CPT/HCPCS: 94060; 94726; 94729

== ENCOUNTER → 2020-07-06 22:31 | Outpatient (CLI) | payer MEDICAID, SELFPAY ==
[2020-06-17 11:49] VITALS: BMI 30.7
== END ==
PROVIDERS: PCP Family Medicine Geriatric Medicine; Referring Provider Internal Medicine Critical Care Medicine; Visit Provider Internal Medicine Critical Care Medicine
DX: G47.33 Obstructive sleep apnea (adult) (pediatric) (principal); J43.2 Centrilobular emphysema
CPT/HCPCS: 94060; 94726; 94729; 95811

== ENCOUNTER 2020-07-08 13:23 | Emergency (ER) | payer MEDICAID, SELFPAY ==
[2020-06-17 11:49] VITALS: BMI 30.7
[2020-07-08 13:24] VITALS: BP 146/62; PULSE 104; RESP 16; TEMP 36.2; O2SAT 99; BMI 31.8
--- NOTE | 2020-07-08 13:39 | ED.DCSUM_ITS ---
- ER Visit Summary Date of Service: 07/08/20 Chief Complaint: [Left foot injury] History of Present Illness: The patient is a 55 F [presents to the emergency department after sustaining an injury to her left foot a couple of days ago. Patient states that she was coming down steps when she developed sudden onset of pain in her left foot. She describes pain mostly over her heel. Patient states that she cannot bear any weight without severe pain. She denies any other injuries. Patient does have history of diabetes, hypertension, and high cholesterol.] Physical Examination: [Left foot-patient has tenderness diffusely about the calcaneus. There is no ecchymosis or bruising noted. Patient has some mild tenderness at the insertion of the Achilles tendon however the tendon is intact and she is got a normal Waldron's test. Patient neurovascular intact. No pain at the ankle. No pain at the base of the fifth metatarsal.] Test Results: [X-rays of the left foot obtained which showed a small spur at the insertion of the Achilles tendon. No fractures noted.] Emergency Department Course and Treatment: [Patient was given crutches] Treatment Plan: [Patient will be given crutches and referral to podiatry. Patient will take ibuprofen or Tylenol for discomfort. She did not want anything stronger for pain.] Disposition: Discharged home in stable condition [] Impression: [Left foot sprain] This note was generated with [employer] dictation software. It may contain incorrect words, spelling, and punctuation that were not noted in review of the chart prior to signing ED Disposition - Plan for ED Patient: Referrals: Bret You Chi, MD [Primary Care Provider] -
--- NOTE | 2020-07-08 13:45 | RAD_ITS ---
STUDY: X-RAY - LEFT FOOT CLINICAL: Female, 55 years old. LEFT FOOT PAIN AROUND HEEL AFTER WALKING DOWN STAIRS TECHNIQUE: 3 view(s) of the foot. COMPARISON: None. FINDINGS: There is an enthesophyte involving the posterior superior calcaneus at the site of insertion of the Achilles tendon. Normal visualized subtalar, talonavicular, calcaneocuboid, tarsal and tarsometatarsal articulations. Normal metatarsi. Normal metatarsophalangeal joint of the great toe. Normal tibial and fibular sesamoid bones. Normal interphalangeal joint of the great toe. Normal phalanges of the great toe. Normal second through fifth metatarsophalangeal joints. Normal interphalangeal joints and phalanges of the lesser toes. The soft tissue structures are unremarkable. RAD/Foot min 3 Views IMPRESSION: Small spur is seen at the insertion of the Achilles tendon. Electronically Signed: Agus Ruelas, at 14:12 EST , Service support ,
--- NOTE | 2020-07-08 14:35 | ED.DEP ---
ED Disposition - Plan for ED Patient: Instructions: ED Sprain Foot Referrals: Bret You Chi, MD [Primary Care Provider] - Oliverio Barrera DPM [STAFF PHYSICIAN] - 3-5 Days
[2020-07-08 14:49] VITALS: PULSE 98; RESP 17; O2SAT 98
== END 2020-07-08 14:50 | disposition home or self-care (01) ==
PROVIDERS: Emergency Provider Emergency Medicine; PCP Family Medicine Geriatric Medicine
DX: S93.602A Unspecified sprain of left foot, initial encounter (principal); E11.9 Type 2 diabetes mellitus without complications; I10 Essential (primary) hypertension; E78.00 Pure hypercholesterolemia, unspecified; Z72.0 Tobacco use; X58.XXXA Exposure to other specified factors, initial encounter; Y93.01 Activity, walking, marching and hiking; Y92.89 Other specified places as the place of occurrence of the external cause; Y99.8 Other external cause status
CPT/HCPCS: 73630; 99283

== ENCOUNTER → 2020-07-09 | Outpatient (CLI) | payer MEDICAID, SELFPAY ==
[2020-06-10 09:41] VITALS: BMI 29.2
[2020-07-08 13:24] VITALS: BMI 31.8
--- NOTE | 2020-07-09 10:21 | TELEMED_ITS ---
[facility] Tele[facility] has confirmed receipt of a request for visit. This document confirms receipt of the order initiating the consult. To find the results of the consultation, please view the patient's reports for the scanned Telemed Consult.
== END | disposition home or self-care (01) ==
LOC: PSN 08:33
PROVIDERS: PCP Family Medicine Geriatric Medicine; Referring Provider Family Medicine Geriatric Medicine; Visit Provider Family Medicine Geriatric Medicine
DX: G40.909 Epilepsy, unspecified, not intractable, without status epilepticus (principal)
CPT/HCPCS: 95819

== ENCOUNTER → 2020-07-15 10:48 | Outpatient (CLI) | payer MEDICAID, SELFPAY ==
[2020-07-08 13:24] VITALS: BMI 31.8
== END ==
PROVIDERS: PCP Family Medicine Geriatric Medicine; Visit Provider Nurse Practitioner Acute Care
DX: G47.33 Obstructive sleep apnea (adult) (pediatric) (principal)

== ENCOUNTER 2020-09-03 14:50 | Emergency (ER) | payer MEDICAID, SELFPAY ==
[2020-09-03 14:51] VITALS: BP 143/70; PULSE 107; RESP 22; TEMP 36.1; O2SAT 100; BMI 32.0
--- NOTE | 2020-09-03 14:58 | EKG12_ITS ---
Test Reason : Blood Pressure : / mmHG Vent. Rate : 102 BPM Atrial Rate : 102 BPM P-R Int : 196 ms QRS Dur : 082 ms QT Int : 338 ms P-R-T Axes : 057 058 046 degrees QTc Int : 440 ms Sinus tachycardia with occasional Premature ventricular complexes Otherwise normal ECG Confirmed by ROSEY PEDROZA, ZOYA ([id number]), industrial editor TIFFANIE CARDONA ([id number]) on 09/07/2020 9:49:21 AM Referred By: KATHY Confirmed By:ZOYA CURRIE MD
--- NOTE | 2020-09-03 14:59 | ED.VIS.GEN ---
History of Present Illness Chief Complaint: Shortness of Breath Informant: Patient Onset: Days Context: Gradual Onset Timing: Continuous Current Severity: Moderate Maximum Severity: Moderate Narrative: The patient is a 55-year-old female history of smoking, diabetes, and hypertension the presents to the emergency department shortness of breath. Patient states she is been feeling ill for the past 2 weeks. She states she got sick around [place] time. She states that she has begun to have worsening cough and feeling mildly more short of breath. She is also had nausea and some loose watery diarrhea. She does not think she is had fever. She denies chest pain. She denies orthopnea or leg edema. She denies hemoptysis. The patient did have outpatient Covid testing today which is currently pending. However, her viral panel did demonstrate rhinovirus. Prior similar symptoms: No Recent Illness/Hospitalization: No Past Medical History - Allergies and Home Meds Allergies/Adverse Reactions: Allergies prochlorperazine edisylate [From Compazine] Allergy (Verified 09/03/20 15:33) Rash prochlorperazine maleate [From Compazine] Allergy (Verified 09/03/20 15:33) Rash Primary Care Physician: Bret You Chi, MD [Primary Care Provider] - Prior records reviewed: Yes Past Medical History: - - Diabetes, hypertension Surgical History: hysterectomy Smoking Status: Current every day smoker - Family History Maternal Family History: Family History (Last Reviewed 06/17/20 @ 11:52 by Ameena Wolfe) Father Myocardial infarction CVA (cerebral vascular accident) Mother Seizures Heart disease Sister Seizures Family History: Reports: Heart Disease - s/p stents Paternal Family History: Family History (Last Reviewed 06/17/20 @ 11:52 by Ameena Wolfe) Father Myocardial infarction CVA (cerebral vascular accident) Mother Seizures Heart disease Sister Seizures Family History: Reports: - - Denies history of lung cancer. Review of Systems General: Denies: Chills, Fever, Sweats Eyes: Denies: Visual changes - bilaterally, Diplopia ENT: Denies: Rhinorrhea, Sore throat Cardiovascular: Denies: Chest pain, Palpitations Respiratory: Reports: Cough. Denies: Dyspnea, Dyspnea on exertion Gastrointestinal: Reports: Nausea, Diarrhea. Denies: Abdominal pain, Vomiting, Melena, Hematochezia Genitourinary: Denies: Dysuria, Hematuria, Frequency Musculoskeletal: Denies: Back pain, Extremity Pain Skin: Denies: Rash, Wounds Neurological: Denies: Headache, Weakness, Numbness Physical Exam Vital Signs/Narrative: Vital Signs Temp Pulse Resp BP Pulse Ox 09/03/20 14:51 97.0 F L 107 H 22 H 143/70 H 100 Inital Vital Signs reviewed: Yes General: Well nourished, Well developed, No Acute Distress Head: Normocephalic, Atraumatic Eyes: Perrl, EOMI ENT: Moist mucous membranes, No rhinorrhea Neck: Supple, Nontender Cardiovascular: Regular rate, Regular rhythm, No murmurs Respiratory: No distress, CTA bilaterally, Chest nontender Abdomen: Soft, Nontender, Nondistended, Normal bowel sounds Back: Nontender, Normal Inspection Extremities: Nontender, No edema Skin: Normal color, No rash Neurological: Alert, Oriented x3, Cranial nerves II-XII grossly intact, Normal Strength, Normal Sensation Psychological: Normal affect, Normal Mood Diagnostic/Tx/Re-eval Clinical Impression(s) from Imaging Studies Chest X-Ray 09/03/20 15:43 IMPRESSION: No active disease. Electronically Signed: Adrian Joseph MD at 16:16 EST Tel , Service support , Abnormal Lab Results 09/03/20 09/03/20 15:30 15:30 WBC 6.2 RBC 3.03 L Hgb 10.3 L Hct 32.6 L MCV 107.6 H MCH 34.0 H MCHC 31.6 L RDW Std Deviation 53.5 H RDW Coeff of Autumn 13.4 Plt Count 450 MPV 7.8 Immature Gran % (Auto) 1.000 H Neut % (Auto) 61.4 Lymph % (Auto) 23.9 Meriwether % (Auto) 10.0 Eos % (Auto) 3.2 Baso % (Auto) 0.5 Absolute Neuts (auto) 3.8 Absolute Lymphs (auto) 1.49 Nucleated RBC % 0 Sodium 137 Potassium 5.1 Chloride 107 Carbon Dioxide 26.0 Anion Gap 4 L BUN 10 Creatinine 1.18 H Estim Creat Clear Calc 38.69 Est GFR (MDRD) Af Amer 61 Est GFR (MDRD) Non-Af 51 L BUN/Creatinine Ratio 8.5 L Glucose 222 H Calcium 8.9 Total Bilirubin 0.10 L AST 12 L ALT 26 Alkaline Phosphatase 137 H Total Protein 6.6 Albumin 3.3 Globulin 3.3 Albumin/Globulin Ratio 1.0 - Rhythm Strip Rhythm Strip: Sinus Rhythm Rate: 80 Ectopy: None - EKG Initial EKG Interpretation: Sinus Rhythm, No Acute Injury Pattern Prior: Unchanged - Medical Decision Making The patient presents with cough, nausea, mild shortness of breath. X-ray of the chest was obtained. It was reviewed by both myself and the radiologist. There is no evidence of infiltrative process. There is no enlarged cardiac silhouette. There is no pneumonia. Metabolic work-up was pursued. Patient's labs are at her baseline. She was positive for rhinovirus and her Covid is pending. With her history of underlying lung disease, I am going to treat her with Decadron. However, she is not hypoxic, tachypneic, or tachycardic. I do feel that she is safe for outpatient therapy. She is comfortable with this plan of care. Impression 1. Viral upper respiratory illness ED Disposition - Plan for ED Patient: Instructions: ED Bronchitis, No Antibiotic (Adult) Prescriptions: Dexamethasone [Decadron] 6 mg PO DAILY 5 Days #5 tab Prescription Printed Ondansetron [Zofran Odt] 4 mg PO Q8H PRN PRN #10 tab PRN Reason: Nausea Prescription Printed Referrals: Bret You Chi, MD [Primary Care Provider] -
[2020-09-03] MEDS: Ondansetron 4 MG/2 ML Vial IV (15:31)
[2020-09-03] MEDS: 0.9% Normal Saline 1,000 ML 1000 ML IV (15:31)
[2020-09-03 15:36] VITALS: O2SAT 100
[2020-09-03 15:39] LABS: Absolute Lymphocyte Count 1.49 X10^3/uL (0.83-4.51); Absolute Neutrophil Count 3.8 X10^3/uL (2.0-7.7); Basophil# 0.03 X10^3/uL; Basophil% 0.5 % (0-1); Eosinophils% 3.2 % (0-5); Hematocrit 32.6 % (37-47); Hemoglobin 10.3 g/dL (12.0-15.0); Lymphocyte # 1.49 X10^3/ul (4.0); Lymphocyte % 23.9 % (19-41); Mean Corp Hgb Conc 31.6 g/dL (32-36); Mean Corpuscular Volume 107.6 fL (81-99); Mean Platelet Vol. 7.8 fl (6.2-12.0); Monocyte# 0.62 X10^3/uL; NRBC Flagged by Analyzer 0 % (0-5); Neutrophil # 3.83 X10^3/uL (2.7-7.7); Neutrophil % 61.4 % (47-70); Platelet Count 450 K/mm3 (150-450); RBC Distribution Width CV 13.4 % (11.6-14.6); RBC Distribution Width SD 53.5 fl (35.1-43.9); Red Blood Count 3.03 M/mm3 (4.2-5.4); White Blood Count 6.2 K/mm3 (4.4-11.0)
--- NOTE | 2020-09-03 15:43 | RAD_ITS ---
STUDY: X-RAY CHEST REASON FOR EXAM: Female, 55 years old. increased sob X2.5 weeks TECHNIQUE: Single AP portable view of the chest. COMPARISON: 01/31/2020 FINDINGS: The lungs are clear and expanded. There is no demonstrated pleural abnormality. Normal size heart. Normal mediastinum and lauryn. Normal visualized pulmonary arteries. Normal visualized aortic arch and descending thoracic aorta. Normal visualized thoracic spine. Healed fracture the posterior lateral right seventh rib. There is no demonstrated abnormality of the visualized soft tissue structures of the upper abdomen. RAD/Chest 1 View (Portable) IMPRESSION: No active disease. Electronically Signed: Adrian Joseph MD at 16:16 EST Tel , Service support ,
[2020-09-03 16:07] LABS: AST(SGOT) 12 U/L (15-37); Alanine Aminotransfer ALT/SGPT 26 U/L (13-56); Albumin, Serum 3.3 g/dL (3.2-5.0); Alkaline Phosphatase 137 U/L (45-117); Anion Gap 4 (5-15); BUN 10 mg/dL (7-18); BUN/Creat Ratio 8.5 RATIO (10-20); Calcium,Total 8.9 mg/dL (8.5-10.1); Chloride 107 mmol/L (98-107); Creatinine, Serum 1.18 mg/dL (0.55-1.02); EST Glomerular Filtration Rate 51 mL/min (>60); Est Glom Filt Rate - Afr Amer 61 mL/min (>60); Estimated Creatinine Clearance 38.69 ml/min; Globulin 3.3 g/dL (2.2-4.2); Glucose 222 mg/dL (74-106); Potassium 5.1 mmol/L (3.5-5.1); Protein, Total 6.6 g/dL (6.4-8.2); Sodium Level 137 mmol/L (136-145)
[2020-09-03 16:39] VITALS: BP 111/57; PULSE 94; RESP 20; O2SAT 99
== END 2020-09-03 16:41 | disposition home or self-care (01) ==
PROVIDERS: Emergency Provider Emergency Medicine; PCP Family Medicine Geriatric Medicine
DX: J06.9 Acute upper respiratory infection, unspecified (principal); B97.89 Other viral agents as the cause of diseases classified elsewhere; E11.9 Type 2 diabetes mellitus without complications; I10 Essential (primary) hypertension; F17.200 Nicotine dependence, unspecified, uncomplicated; Z79.84 Long term (current) use of oral hypoglycemic drugs; Z79.899 Other long term (current) drug therapy; R06.89 Other abnormalities of breathing
CPT/HCPCS: 71045; 80053; 85025; 87633; 87635; 93005; 96361; 96374; 99285; J7030; U0005; A4216; J2405; U0003

== ENCOUNTER → 2020-09-03 | Outpatient (CLI) | payer MEDICAID, SELFPAY | END | disposition home or self-care (01) | LOC: LABSPEC 10:08 | PROVIDERS: PCP Family Medicine Geriatric Medicine; Referring Provider Family Medicine Geriatric Medicine; Visit Provider Family Medicine Geriatric Medicine | DX: R06.89 Other abnormalities of breathing (principal) | CPT/HCPCS: 87633; 87635; U0003 ==

== ENCOUNTER → 2020-09-09 13:18 | Outpatient (CLI) | payer MEDICAID, SELFPAY ==
[2020-09-03 14:51] VITALS: BMI 32.0
[2020-09-09 16:38] LABS: Absolute Lymphocyte Count 2.82 X10^3/uL (0.83-4.51); Absolute Neutrophil Count 5.8 X10^3/uL (2.0-7.7); Basophil# 0.02 X10^3/uL; Basophil% 0.2 % (0-1); Eosinophil# 0.15 X10^3/uL; Eosinophils% 1.6 % (0-5); Hematocrit 30.9 % (37-47); Hemoglobin 9.9 g/dL (12.0-15.0); Lymphocyte # 2.82 X10^3/ul (4.0); Lymphocyte % 29.3 % (19-41); Mean Corpuscular Hgb 33.9 pg (27.0-32.0); Mean Corpuscular Volume 105.8 fL (81-99); Monocyte# 0.71 X10^3/uL; Monocyte% 7.4 % (0-10); NRBC Flagged by Analyzer 0 % (0-5); Neutrophil # 5.82 X10^3/uL (2.7-7.7); Neutrophil % 60.6 % (47-70); Platelet Count 480 K/mm3 (150-450); RBC Distribution Width CV 13.3 % (11.6-14.6); RBC Distribution Width SD 52.1 fl (35.1-43.9); Red Blood Count 2.92 M/mm3 (4.2-5.4); White Blood Count 9.6 K/mm3 (4.4-11.0)
[2020-09-09 17:21] LABS: ALB/GLOB Ratio 1.1 RATIO (0.9-2.4); AST(SGOT) 12 U/L (15-37); Alanine Aminotransfer ALT/SGPT 27 U/L (13-56); Albumin, Serum 3.4 g/dL (3.2-5.0); Alkaline Phosphatase 108 U/L (45-117); Anion Gap 8 (5-15); BUN 16 mg/dL (7-18); Calcium,Total 8.6 mg/dL (8.5-10.1); Chloride 104 mmol/L (98-107); Creatinine, Serum 1.14 mg/dL (0.55-1.02); EST Glomerular Filtration Rate 53 mL/min (>60); Est Glom Filt Rate - Afr Amer 64 mL/min (>60); Glucose 37 mg/dL (74-106); Potassium 3.8 mmol/L (3.5-5.1); Protein, Total 6.4 g/dL (6.4-8.2); Sodium Level 136 mmol/L (136-145)
== END ==
PROVIDERS: PCP Family Medicine Geriatric Medicine; Visit Provider Family Medicine Geriatric Medicine
DX: E11.9 Type 2 diabetes mellitus without complications (principal); I10 Essential (primary) hypertension
CPT/HCPCS: 36415; 80053; 84443; 85025

== ENCOUNTER → 2020-09-10 13:53 | Outpatient (CLI) | payer MEDICAID, SELFPAY ==
[2020-09-03 14:51] VITALS: BMI 32.0
[2020-09-10 16:37] LABS: Absolute Lymphocyte Count 1.69 X10^3/uL (0.83-4.51); Basophil# 0.02 X10^3/uL; Basophil% 0.3 % (0-1); Eosinophil# 0.19 X10^3/uL; Eosinophils% 2.6 % (0-5); Hematocrit 32.4 % (37-47); Hemoglobin 10.2 g/dL (12.0-15.0); Lymphocyte # 1.69 X10^3/ul (4.0); Lymphocyte % 22.8 % (19-41); Mean Corp Hgb Conc 31.5 g/dL (32-36); Mean Corpuscular Hgb 33.9 pg (27.0-32.0); Mean Corpuscular Volume 107.6 fL (81-99); Mean Platelet Vol. 8.3 fl (6.2-12.0); Monocyte# 0.46 X10^3/uL; Monocyte% 6.2 % (0-10); NRBC Flagged by Analyzer 0 % (0-5); Neutrophil # 4.99 X10^3/uL (2.7-7.7); Neutrophil % 67.2 % (47-70); Platelet Count 452 K/mm3 (150-450); RBC Distribution Width CV 13.7 % (11.6-14.6); RBC Distribution Width SD 54.8 fl (35.1-43.9); RET-HE 38.3 pg (30-35); Red Blood Count 3.01 M/mm3 (4.2-5.4); Reticulocyte Count 2.42 % (0.5-1.5); White Blood Count 7.4 K/mm3 (4.4-11.0)
[2020-09-10 17:00] LABS: Vitamin B12 186 pg/mL (211-911)
[2020-09-10 17:04] LABS: Ferritin 80 ng/mL (8-252); Iron 49 ug/dL (50-170); Iron Binding Capacity,Total 294 ug/dL (250-450)
== END ==
PROVIDERS: PCP Family Medicine Geriatric Medicine; Visit Provider Family Medicine Geriatric Medicine
DX: D50.9 Iron deficiency anemia, unspecified (principal)
CPT/HCPCS: 36415; 82607; 82728; 82746; 83540; 83550; 85025; 85045

== ENCOUNTER → 2020-09-21 17:18 | Outpatient (CLI) | payer MEDICAID, SELFPAY ==
[2020-09-16 14:01] VITALS: BMI 30.7
== END ==
PROVIDERS: PCP Family Medicine Geriatric Medicine; Referring Provider Family Medicine Geriatric Medicine; Visit Provider Family Medicine Geriatric Medicine
DX: R68.83 Chills (without fever) (principal)
CPT/HCPCS: 87633; 87635; C9803; U0003

== ENCOUNTER → 2020-09-29 07:32 | Outpatient (CLI) | payer MEDICAID, SELFPAY ==
[2020-09-16 14:01] VITALS: BMI 30.7
--- NOTE | 2020-09-29 07:33 | CT_ITS ---
STUDY: LOW DOSE CT LUNG CANCER SCREENING REASON FOR EXAM: Female, 55 years old. CURRENT SMOKER, LUNG SCREEN, 41 YR SMOKER X 6 PPD, HAS CUT DOWN TO 1/2 PPD, GF=263, HX-DB,IL, COPD RADIATION DOSAGE (If Supplied By Facility): CTDIvol = ( 3.02 ) mGy, DLP = ( 91.38 ) mGycm TECHNIQUE: No contrast was administered. Low dose technique was utilized (average mAS-38 and kVp 120). 1.25 mm axial source images with a slice interval of 1.25-mm were reconstructed in lung windows. 2.5 mm axial source images with a slice interval of 2.5-mm were reconstructed in lung windows. 5.0 mm axial source images with a slice interval of 5.0-mm were reconstructed in soft tissue windows. Nodule measured using lung windows on PACS and/or independent workstation with automated measurement of minimum and maximum diameter. Nodule measurement reported as average diameter rounded to the nearest whole number. Growth is defined as an increase ins size of greater than 1.5 mm. COMPARISON: Comparison is made with prior chest radiograph dated [address] scan of the thorax dated 01/31/2020. NODULES: No suspicious nodule is seen. Emphysema: Hyperinflation. Mild degree of scarring at the lung apices. Linear scarring in the anterior medial aspect of the right middle lobe as well as in the anterior of the left lower lobe. Endobronchial lesion: None Aorta: Atherosclerotic calcification of the aortic arch. Mediastinal nodes: Tiny lymph nodes. Other chest and abdominal findings: CT/Low Dose CT Lung Screening IMPRESSION: Lung-RADS category 2 - Continue annual screening with LDCT in 12 months. IMPORTANT NOTES FOR USE: ACR Lung-RADS Version 1.0 Assessment Categories Release Date: December 23, 2013 Category: Coded 0-4 bases on nodule(s) with highest degree of suspicion. Negative screen is defined as categories 1 and 2; a positive screen is defined as categories 3 and 4. Category 3 and 4A nodules that are unchanged on interval CT should be coded as category 2, and individuals returned to screening in 12 months. Category 4X: Category 3 or 4 nodules with additional imaging findings that increase the suspicion of lung cancer, such as spiculation, GGN that doubles in size in 1 year, enlarged lymph notes, etc. Category Modifiers: S (significant finding unrelated to lung cancer) and C (prior history of treated lung cancer) may be added to the 0-4 Lung-RADS Electronically Signed: Agus Ruelas MD at 9:06 EST , Service support ,
--- NOTE | 2020-09-29 16:05 | BI_ITS ---
MAMMOGRAPHY - BILATERAL SCREENING REASON FOR EXAM: Female, 55 years old. Routine annual screening examination. PERTINENT HISTORY: Grandmother with breast cancer. Remote left stereotactic breast biopsy. TECHNIQUE: Digital bilateral breast elaina (3D mammographic acquisition) in the CC and MLO projections. 2-D mediolateral oblique (MLO) and craniocaudad (CC) views of both breasts were obtained. CAD: Full Field Digital Mammography with Computer Added Detection was performed. COMPARISON: Comparison is made with prior study dated 06/20/2019 and 12/13/2017. FINDINGS: Breast Composition: The breasts are heterogeneously dense, which may obscure small masses. There are no dominant masses or suspicious calcifications. Interstitial clip markers once again seen in the axillary region of the left breast. No other significant abnormalities are identified. There has been no significant change since the prior study. BI/SCRN MAMM (CAD)W/ELAINA BILAT IMPRESSION: Stable bilateral screening mammogram. Yearly follow-up mammogram recommended. (A) ASSESSMENT CATEGORY: BIRADS Category 2: Benign. A letter regarding these results will be sent to the patient by the facility within 30 days. Approximately 10% of breast cancers are not detected by mammography. A normal mammogram should not delay biopsy of a clinically suspicious abnormality. [id number] Electronically Signed: Agus Ruelas MD at 8:42 EST , Service support ,
== END ==
PROVIDERS: PCP Family Medicine Geriatric Medicine; Referring Provider Nurse Practitioner Acute Care; Visit Provider Nurse Practitioner Acute Care
DX: F17.210 Nicotine dependence, cigarettes, uncomplicated (principal); Z12.31 Encounter for screening mammogram for malignant neoplasm of breast; Z12.2 Encounter for screening for malignant neoplasm of respiratory organs
CPT/HCPCS: 71271; 77063; 77067

== ENCOUNTER → 2020-10-19 13:32 | Outpatient (CLI) | payer MEDICAID, SELFPAY ==
[2020-10-13 12:45] VITALS: BMI 32.0
--- NOTE | 2020-10-19 13:42 | RAD_ITS ---
STUDY: X-RAY - LEFT KNEE REASON FOR EXAM: Female, 55 years old. Pt stated fell on ice x 1 week ago, left sided lower back pain, left knee pain below patella TECHNIQUE: 4 view(s) of the knee. COMPARISON: None. FINDINGS: Normal visualized distal femur. Normal visualized proximal tibia and fibula. Normal proximal tibiofibular articulation. Normal medial femorotibial compartment. Normal lateral femorotibial compartment. Normal patellofemoral articulation. Small joint effusion. RAD/Knee 4 or More Views IMPRESSION: Small joint effusion. Electronically Signed: Agus Ruelas MD at 15:40 EST , Service support ,
--- NOTE | 2020-10-19 13:42 | RAD_ITS ---
STUDY: X-RAY - LUMBAR SPINE REASON FOR EXAM: Female, 55 years old. Pt stated fell on ice x 1 week ago, left sided lower back pain, left knee pain below patella TECHNIQUE: 3 view(s) of the lumbar spine were obtained. COMPARISON: None FINDINGS: Normal lumbar lordosis. There is no substantial scoliosis. There is a normal alignment of the vertebrae. Spondylosis at the L2-L3 and L3-L4 levels. Mild degree of disc space narrowing at the L5-S1 level. The soft tissue structures are unremarkable. RAD/Lumbar Spine 2 or 3 Views IMPRESSION: Degenerative changes of the spine, as detailed above. Electronically Signed: Agus Ruelas MD at 15:41 EST , Service support ,
[2020-10-19 17:02] LABS: Absolute Lymphocyte Count 1.51 X10^3/uL (0.83-4.51); Absolute Neutrophil Count 2.9 X10^3/uL (2.0-7.7); Basophil# 0.04 X10^3/uL; Basophil% 0.8 % (0-1); Eosinophil# 0.19 X10^3/uL; Eosinophils% 3.6 % (0-5); Hematocrit 33.2 % (37-47); Hemoglobin 10.4 g/dL (12.0-15.0); Lymphocyte # 1.51 X10^3/ul (4.0); Mean Corp Hgb Conc 31.3 g/dL (32-36); Mean Corpuscular Volume 105.4 fL (81-99); Mean Platelet Vol. 8.3 fl (6.2-12.0); Monocyte# 0.58 X10^3/uL; Monocyte% 11.1 % (0-10); NRBC Flagged by Analyzer 0 % (0-5); Neutrophil # 2.87 X10^3/uL (2.7-7.7); Neutrophil % 55.1 % (47-70); Platelet Count 396 K/mm3 (150-450); RBC Distribution Width CV 12.9 % (11.6-14.6); RBC Distribution Width SD 50.2 fl (35.1-43.9); Red Blood Count 3.15 M/mm3 (4.2-5.4); White Blood Count 5.2 K/mm3 (4.4-11.0)
== END ==
PROVIDERS: PCP Family Medicine Geriatric Medicine; Referring Provider Family Medicine Geriatric Medicine; Visit Provider Family Medicine Geriatric Medicine
DX: D50.9 Iron deficiency anemia, unspecified (principal); M54.5 Low back pain; M25.562 Pain in left knee
CPT/HCPCS: 36415; 72100; 73564; 85025

== ENCOUNTER → 2020-12-08 11:23 | Outpatient (CLI) | payer MEDICAID, SELFPAY ==
[2020-10-13 12:45] VITALS: BMI 32.0
[2020-12-08 12:09] LABS: Absolute Lymphocyte Count 1.46 X10^3/uL (0.83-4.51); Basophil# 0.04 X10^3/uL; Basophil% 0.8 % (0-1); Eosinophil# 0.22 X10^3/uL; Eosinophils% 4.3 % (0-5); Hematocrit 34.2 % (37-47); Lymphocyte # 1.46 X10^3/ul (4.0); Lymphocyte % 28.3 % (19-41); Mean Corp Hgb Conc 32.2 g/dL (32-36); Mean Corpuscular Volume 102.7 fL (81-99); Mean Platelet Vol. 8.2 fl (6.2-12.0); Monocyte# 0.44 X10^3/uL; Monocyte% 8.5 % (0-10); NRBC Flagged by Analyzer 0 % (0-5); Neutrophil # 2.95 X10^3/uL (2.7-7.7); Neutrophil % 57.1 % (47-70); Platelet Count 455 K/mm3 (150-450); RBC Distribution Width CV 13.6 % (11.6-14.6); RBC Distribution Width SD 51.6 fl (35.1-43.9); Red Blood Count 3.33 M/mm3 (4.2-5.4); White Blood Count 5.2 K/mm3 (4.4-11.0)
[2020-12-08 12:32] LABS: ALB/GLOB Ratio 1.2 RATIO (0.9-2.4); AST(SGOT) 15 U/L (15-37); Alanine Aminotransfer ALT/SGPT 39 U/L (13-56); Albumin, Serum 3.8 g/dL (3.2-5.0); Alkaline Phosphatase 137 U/L (45-117); Anion Gap 6 (5-15); BUN 15 mg/dL (7-18); BUN/Creat Ratio 15.9 RATIO (10-20); Calcium,Total 9.4 mg/dL (8.5-10.1); Chloride 104 mmol/L (98-107); Creatinine, Serum 0.94 mg/dL (0.55-1.02); EST Glomerular Filtration Rate 65 mL/min (>60); Est Glom Filt Rate - Afr Amer 79 mL/min (>60); Globulin 3.1 g/dL (2.2-4.2); Glucose 54 mg/dL (74-106); Potassium 4.6 mmol/L (3.5-5.1); Protein, Total 6.9 g/dL (6.4-8.2); Sodium Level 135 mmol/L (136-145); Thyroid Stim Hormone (TSH) 1.25 uIU/mL (0.358-3.74)
== END ==
PROVIDERS: PCP Family Medicine Geriatric Medicine; Visit Provider Family Medicine Geriatric Medicine
DX: E11.9 Type 2 diabetes mellitus without complications (principal); I10 Essential (primary) hypertension
CPT/HCPCS: 36415; 80053; 84443; 85025

== ENCOUNTER → 2020-12-25 16:15 | Outpatient (CLI) | payer MEDICAID, SELFPAY ==
[2020-12-17 15:57] VITALS: BMI 32.0
--- NOTE | 2020-12-25 16:15 | MRI_ITS ---
STUDY: MRI LEFT KNEE REASON FOR EXAM: Female, 55 years old. LEFT knee pain s/p 2 recent injuries TECHNIQUE: Standardized fat and water weighted pulse sequences were obtained in all 3 orthogonal planes. COMPARISON: Left knee x-ray dated October 19, 2020 FINDINGS: Normal medial meniscus. There is diffuse, greater than 50% thickness articular cartilage loss of the medial femorotibial compartment. Mild to moderate subchondral reactive signal is present in the medial tibial plateau. Full-thickness loss of cartilage is present over a 1.3 cm region of the far anterior aspect medial tibial plateau. Normal medial femoral condyle. Normal medial collateral ligamentous complex (MCL). Normal distal semimembranosus, gracilis and semitendinosus tendons. Normal lateral meniscus. Normal hyaline cartilage of the lateral femorotibial compartment. Normal lateral femoral condyle and tibial plateau. Normal proximal tibiofibular articulation. Normal lateral collateral (fibular) ligament. Normal popliteus tendon. Normal biceps femoris tendon. Normal anterior cruciate ligament (ACL). Normal posterior cruciate ligament (PCL). Normal congruent patellofemoral articulation. Normal hyaline cartilage of the patellofemoral compartment. Normal medial and lateral patellar retinaculum. Normal quadriceps tendon. Normal patellar tendon. Normal Hoffa''s fat pad. A tiny joint effusion is present. The soft tissues are unremarkable. The otherwise visualized osseous structures are unremarkable. MRI/Lower Ext Joint Only (Routine) IMPRESSION: 1. Mild to moderate subchondral reactive signal is present in the medial tibial plateau. Full-thickness loss of cartilage is present over a 1.3 cm region of the far anterior aspect medial tibial plateau. Normal medial femoral condyle. Electronically Signed: Jc Newsome MD at 20:54 EDT , Service support ,
== END ==
PROVIDERS: PCP Family Medicine Geriatric Medicine; Referring Provider Orthopaedic Surgery; Visit Provider Orthopaedic Surgery
DX: G89.29 Other chronic pain (principal); M25.562 Pain in left knee; S83.204A Other tear of unspecified meniscus, current injury, left knee, initial encounter
CPT/HCPCS: 73721

== ENCOUNTER 2021-02-23 10:16 | Day surgery (SDC) | payer MEDICAID, SELFPAY ==
[2021-01-27 07:34] VITALS: BMI 26.9
--- NOTE | 2021-02-22 16:30 | HP.PCM_ITS ---
History and Physical Date of Admission: 02/23/21 Date of Service: 01/27/21 MR#:[id number]: FLORINDA LOPEZ #:[id number]:[id number] Provider:Dr. Alberto Thrasher DOAge/Sex: 55/F Location:[place]:Signed Intake Vital Signs 01/27/21 07:34 BMI 26.9 Intake Visit Reasons: left knee Chief Complaint: B12 injection Allergies prochlorperazine edisylate [From Compazine] Allergy (Severe, Verified 12/30/20 08:07) Rash prochlorperazine maleate [From Compazine] Allergy (Severe, Verified 12/30/20 08:07) Rash [facility] Medical History (Updated 01/27/21 @ 09:[address] Alberto Thrasher DO) Abnormal stress test Arthritis Biliary dyskinesia Chest pain Chronic anemia Constipation COPD (chronic obstructive pulmonary disease) with emphysema COPD exacerbation Depression Diabetes type 2, controlled Dyslipidemia Fibroadenoma of left breast Hemorrhoid History of back problems History of non-ST elevation myocardial infarction (NSTEMI) (01/17/20) Hypertension Hypoglycemia Hypothyroidism Insomnia Left arm numbness Left carotid bruit Microcalcification of left breast on mammogram Nicotine dependence Right lower lobe pneumonia Segmental and somatic dysfunction of lumbar region Segmental and somatic dysfunction of pelvic region Sleep apnea Syncope Unstable angina Surgical History H/O: hysterectomy heart catheterization History of carpal tunnel surgery of left wrist History of cholecystectomy (01/17/20) History of hysterectomy History of left heart catheterization (02/10/20) history stereotactic biopsy left breast (~12/22/17) Family History Father Myocardial infarction CVA (cerebral vascular accident) Mother Heart disease Seizures Sister Seizures Grandmother Cancer Grandfather Cancer Aunt Breast cancer Social History (Updated 12/16/20 @ 13:[address] Alberto Thrasher DO) Smoking Status: Current every day smoker second hand exposure: No alcohol intake: never substance use type: does not use caffeine: Yes what type of physical activity do you participate in: walking frequency: daily HPI left knee Details: Parts of this documentation were recorded by a scribe, this documentation accurately reflects the service provided and the decisions made by me, Dr. Alberto Thrasher DO 01/27/21 1205. FLORINDA LOPEZ is a 55 year old F here today for her three week follow up on left knee. She continues to have anterior knee pain. 3 brands of the visco injections have been denied by insurance. Denies any steroid injection of the knee. Denies any surgery of the knee. Denies any mechanical knee pain. Denies numbness, tingling or other associated symptoms. States that her pain is worse with ambulation and laying in bed. Anterior medial tibia pain ROS Musc Reports arthralgias, Reports joint swelling, Denies numbness, Denies radiating pain into limb, Reports stiffness and Denies tingling Neuro No numbness and No tingling Ortho Exam General General: Yes no acute distress Neurologic: Yes alert Psychologic: Yes agitated Left Knee Homans Sign: No Knee ROM: No ROM-Extension -20 to 0 (lacking 20 ) and No ROM-Flexion 0-140 (85) KNEE: Skin/Wound: Yes CDI, No ecchymosis and No erythema Knee ROM: Yes ROM-Extension -20 to 0 (-12) and Yes ROM-Flexion 0-140 (88) Stability: NML: Anterior Drawer, NML: Julienne, NML: Posterior Drawer, NML: Valgus 0, NML: Varus 0 and NML: Varus 30 (painful) and 1+: Valgus 30 (3mm gapping due to joint space narrowing) Apprehension with Lateral Translation: No Patella Grind: No KNEE: TTP medial joint line and medial tibial plateau Supplemental Info 12/25/2020 MRI left knee: Moderate subchondral edema present within the medial tibial plateau with a 1.3 cm area of full-thickness cartilage loss of the anterior medial tibial plateau. No meniscal tear Coding Level of Care Code Off vis,est,level 3 Diagnoses Osteoarthritis of left knee M17.12 Assessment and Plan Assessment and Plan (1) Osteoarthritis of left knee: Status: Acute Plan - Dr. Alberto Thrasher, DO: Patient educated that since the visco injections were denied her other treatment options are do nothing or steroid injection or PT or we could attempt to get a sample of Euflexxa , she is not interested in theses options. surgical options which would be a sub-chondroplasty and arthroscopic evaluation possible condroplasty /microfracture or a partial knee replacement as a last treatment option. Educated that she may require additional time for the bone edema to heal. My first recommendation would be consider continued conservative treatment with viscosupplementation steroid injection physical therapy and weightbearing limitations she does not wish to pursue this direction she does wish to proceed with a surgical option discussed the possibility of subchondroplasty to attempt to alleviate the bone pain from her chronic bone marrow lesion. I do have some concerns about this as there is some area of full-thickness cartilage defect however the defect is very anterior on the medial tibial plateau and the remainder of her cartilage looks intact. She understands it there can be increased pain for 6 weeks following this procedure and that we may not alleviate all or any of her pain she understands this wish and does wish to proceed. She may require partial knee replacement down the road however at this time with her elevated A1c and smoking status she is not a current candidate she is also on the younger age. She wishes to proceed with left knee sub chondroplasty Reviewed the pre- operative plans with the patient. Risks and benefits of the procedure were fully explained, including but not limited to infection, neurovascular injury, continued pain, arthritis, stiffness, need for further surgery, re-injury, DVT, PE, general risks of anesthesia, and loss of limb or life. The patient understands all the risks and does wish to proceed with written consent for left knee sub chondroplasty. We will call the patient with a surgical date. Encouraged smoking sensation and encouraged to monitor diet to get A1C under 7. She will be placed into PT post op. Denies any hx of blood clots. Follow up 2 weeks post op or sooner if pain, swelling, numbness or associated symptoms, or concerns develop. All questions answered. Patient in agreement of plan. Plan Details Goals & Barriers: Goals Decrease pain and inflammation Increase ROM 01/27/21 7820<Electronically signed by Alberto Thrasher DO>Date Alberto Thrasher DO Cosigner Signature:Date I have re- examined the patient. There are no clinical changes since date of exam
[2021-02-23] VITALS (7 sets, daily range): BP systolic 112–149; BP diastolic 56–84; PULSE 77–122; RESP 16; TEMP 35.9–36.7; O2SAT 94–99; BMI 33.2
[2021-02-23] MEDS: Dextrose 5%-Lactated Ringers 1,000 ML 100 ML IV (11:09)
--- NOTE | 2021-02-23 11:11 | SUR.PREOP ---
BLOOD SUGAR 53 PT. STATES DO FEEL FUNNY.DR. CHILDRESS AWARE ORDERED [id number] BAG UP AND RUNNING
[2021-02-23 11:31] LABS: Bedside Glucose 53 mg/dL (70-110)
[2021-02-23 11:31] LABS: Bedside Glucose 75 mg/dL (70-110)
[2021-02-23] MEDS: Cefazolin 2 GM in 0.9% Normal Saline 100 ML IV (11:45)
--- NOTE | 2021-02-23 12:10 | RAD_ITS ---
STUDY: X-RAY - LEFT KNEE REASON FOR EXAM: Female, 55 years old. PAIN TECHNIQUE: 1 view(s) of the knee. COMPARISON: 10/19/2020 FINDINGS: Fluoroscopy of the left knee was utilized and operating room and a single image is made of for interpretation.. RAD/Knee 1 or 2 Views IMPRESSION: Fluoroscopy during surgery. Electronically Signed: Adrian Joseph MD at 13:46 EDT Tel , Service support ,
--- NOTE | 2021-02-23 13:03 | OP.PCM_ITS ---
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 Postoperative diagnosis: Grade II chondromalacia medial tibial plateau chronic bone marrow lesion medial tibial plateau Procedure: Left knee arthroscopy evaluation subchondroplasty Shazia Biomet calcium phosphate Anesthesia: General Estimated blood loss: [5] mL Tourniquet time: 20 minutes 300 mmHg Complications: none Indication for procedure: This is a 55-year-old female patient who has had ongoing medial sided knee pain was failed conservative treatment did have MRI evidence of chronic bone marrow lesion with ongoing symptoms for many months we did discuss arthroscopic evaluation and subchondroplasty the patient did wish to proceed to attempt to alleviate the symptoms. Risk benefits and alternatives of the procedure were reviewed including risk of bleeding infection nerve artery tissue damage need for further surgery continued pain and expected postoperative course. Procedure: The patient was met in the preoperative holding area. The operative extremity was identified by both patient and physician and family and marked. Patient was brought back to the operating room on a wheeled cart and transferred to the operating table in the supine position. Anesthesia was started. A well-padded tourniquet was placed on the operative extremity. A lower extremity leg barillas was secured to the operative extremity. The contralateral extremity was well-padded and the end of the bed was flexed to 90 degrees. The patient was prepped and draped in the usual sterile fashion. A timeout was called to ensure the proper patient, procedure, and extremity were being contemplated. 0.5% Marcaine with epinephrine was injected into the planned incisional areas under the skin only. An Esmarch was used to exsanguinate the extremity and the tourniquet was inflated. An 11 blade scalpel was used to make a stab incision in the anterior lateral portal. The arthroscope was inserted into the intercondylar notch and inflow and outflow tubes were attached. Arthroscopic visualization began. The medial compartment was entered. An 18-gauge spinal needle was used to establish the placement for anterior medial portal. An 11 blade scalpel was used to make a stab incision. Blunt probe was inserted followed by a meniscal probe. With grade 2 cartilage wear no loose cartilage flaps no loose bodies the ACL was [found to be intact]. The lateral compartment was entered no significant cartilage wear The arthroscope was switched to the medial portal to complete the procedure. The medial and lateral gutters were inspected and [were free of loose bodies]. The patellofemoral joint was inspected [and was free of cartilage pathology]. [There was good patellar tracking.] Attention was then turned towards a subchondroplasty portion of the procedure and focusing on the most anterior aspect of the medial tibial plateau trocar was inserted under fluoroscopic guidance checked in both AP and lateral projections as well as oblique projections and 2 and half cc of subchondroplasty calcium phosphate products were injected into the subchondral bone. A small amount of this was extravasated anteriorly after the injection was allowed to harden we then reentered the joint to ensure that there is no intra-articular calcium phosphate there was not. The knee was thoroughly irrigated and drained. An intra-articular injection with 5 cc 0.5% Marcaine plain [and 40 mg of Depo-Medrol] was injected intra- articularly. The arthroscope was removed the portals were closed with 3-0 nylon arthroscopic stitches. Followed by Xeroform 4 x 4's ABDs web roll and an Ten wrap. The tourniquet was let down and the drapes were removed. All counts were correct. The patient was brought back to the PACU in stable condition.
--- NOTE | 2021-02-23 13:08 | DCINST_ITS ---
Discharge Instructions Activity Keep extremity elevated above heart level: Operative Extremity Dressing / Incision Additional Dressing/Incision Instructions:: Ice and elevate next 72 hours .keep dressing on clean and dry for 48 hours then may remove begin showering daily but do not submerge in tub or pool. After shower may apply Band-Aids . Encourage knee range of motion weightbearing as tolerated, use crutches until confident in knee then may discontinue. No strenuous activity. When not ambulating keep iced and elevated next 72 hours. Do not mix pain medication with recreational drugs or alcohol only take as prescribed can be addictive and abusive, call with any q uestions or concerns. Follow Up Care Please Follow Up With: Alberto Thrasher DO When: 2 weeks Test Results: Test results from this visit will be discussed in further detail at your follow-up appointment, if applicable. Discharge Plan Admission Attending Provider: Alberto Thrasher Primary Care Provider: Bret You Chi Instructions Patient Instructions: ED Chest Pain, Noncardiac Discharge Orders/Prescriptions Prescriptions: New oxycodone 5 mg tablet 5 - 10 mg PO Q4H PRN (Reason: pain) 7 Days Qty: 30 RF: 0 No Action lisinopril 5 mg tablet 2.5 mg PO DAILY RF: 0 atorvastatin 40 MG tablet 40 mg PO DAILY RF: 0 levothyroxine 25 mcg tablet 50 mcg PO DAILY RF: 0 metformin 1,000 tablet 1,000 mg PO BID RF: 0 doxepin 100 MG capsule 50 mg PO QHS RF: 0 paroxetine HCl 30 MG tablet 20 mg PO QHS RF: 0 aspirin 81 MG tablet 81 mg PO DAILY@0800 Qty: 30 RF: 0 pioglitazone 30 MG tablet 30 mg PO DAILY RF: 0 ondansetron 4 MG tablet 4 mg PO Q8H PRN PRN (Reason: Nausea) Qty: 10 RF: 0 Referrals / Follow Up: Bret You Chi, MD [Primary Care Provider] - Disposition Disposition (needs filled in before D/C Order can be placed): Home, Self Care
[2021-02-23 13:10] LABS: Bedside Glucose 247 mg/dL (70-110)
[2021-02-23] MEDS: oxyCODONE 5 MG Tablet PO (14:53)
== END 2021-02-23 15:28 | disposition home or self-care (01) ==
LOC: SDC 10:17 → AC 10:26
PROVIDERS: PCP Family Medicine Geriatric Medicine; Referring Provider Orthopaedic Surgery; Visit Provider Orthopaedic Surgery
PROC: (CPT 29870; principal; 2021-02-23 12:20)
DX: M94.262 Chondromalacia, left knee (principal); D75.89 Other specified diseases of blood and blood-forming organs; M17.12 Unilateral primary osteoarthritis, left knee; J44.9 Chronic obstructive pulmonary disease, unspecified; F32.9 Major depressive disorder, single episode, unspecified; E11.9 Type 2 diabetes mellitus without complications; E78.5 Hyperlipidemia, unspecified; I10 Essential (primary) hypertension; E03.9 Hypothyroidism, unspecified; F17.200 Nicotine dependence, unspecified, uncomplicated; Z79.84 Long term (current) use of oral hypoglycemic drugs; Z79.899 Other long term (current) drug therapy
CPT/HCPCS: 29999; 73560; 76000; 82962; C1713; J7030

== ENCOUNTER 2021-02-26 10:57 | Emergency (ER) | payer MEDICAID, SELFPAY ==
[2021-02-23 10:35] VITALS: BMI 33.2
[2021-02-26 10:58] VITALS: BP 145/62; PULSE 90; RESP 18; TEMP 36.6; O2SAT 97; BMI 36.1
--- NOTE | 2021-02-26 11:15 | ED.VIS.LOWEX ---
HPI History of Present Illness Chief Complaint: Lower Extremity Injury Detail of Chief Complaint: Left knee pain status post knee arthroscopy 3 days ago. Informant: patient Occured/Mechanism Mechanism/Context: No injury Onset/Context/Timing Onset: Days Context: Gradual Onset Timing: Continuous Quality of Pain: Aching Current Severity: Mild Maximum Severity: Mild Narrative Narrative: 55-year-old female past medical history of diabetes, htn, etc. status post left knee arthroscopy 3 days ago on February 23. Patient states she has been icing elevating it. She has been using limited anti-inflammatories and Percocet for pain. She is complaining of pain. Denies any fever or chills. No calf pain. No chest pain or shortness of breath. No falls or trauma since the surgery. Prior similar symptoms: No Recent Illness/Hospitalization: No PFSH PFSH Medical History Abnormal stress test Abrasion Ambulates with cane Arthritis Biliary dyskinesia Blackout Cardiology follow-up encounter Chest pain Chronic anemia Constipation COPD (chronic obstructive pulmonary disease) with emphysema COPD exacerbation CPAP (continuous positive airway pressure) dependence Depression Diabetes Diabetes type 2, controlled Dietary restriction Dyslipidemia Easy bruising Fibroadenoma of left breast Gastric reflux Hemorrhoid High cholesterol History of back problems History of non-ST elevation myocardial infarction (NSTEMI) (01/17/20) History of pain when walking History of stress test Hypertension Hypoglycemia Hypothyroidism Insomnia Left arm numbness Left carotid bruit Low iron Microcalcification of left breast on mammogram Nicotine dependence Right lower lobe pneumonia Segmental and somatic dysfunction of lumbar region Segmental and somatic dysfunction of pelvic region Shortness of breath on exertion Sleep apnea Smoker Syncope Thyroid disease Unstable angina Wears glasses Wears partial dentures Home Medications atorvastatin 40 mg PO DAILY 08/11/14 [History Last Taken 03/29/19] lisinopril 5 mg tablet 2.5 mg PO DAILY 10/24/17 [History Last Taken 02/10/20] metformin 1,000 mg PO BID 03/29/19 [History Last Taken 02/09/20] doxepin 50 mg PO QHS 09/27/19 [History Last Taken Unknown] paroxetine HCl 20 mg PO QHS 12/14/19 [History Last Taken Unknown] aspirin 81 mg PO DAILY@0800 #30 tablet 01/18/20 [Rx Last Taken 02/19/21] levothyroxine 25 mcg tablet 50 mcg PO DAILY tablet 06/17/20 [History Last Taken Unknown] ondansetron 4 mg PO Q8H PRN PRN #10 tablet 09/03/20 [Rx Last Taken Unknown] pioglitazone 30 mg PO DAILY 09/03/20 [History Last Taken Unknown] oxycodone 5 - 10 mg PO Q4H PRN 7 Days #30 tab 02/23/21 [Rx Last Taken Unknown] Allergy/AdvReac Type Severity Reaction Status Date / Time prochlorperazine edisylate Allergy Severe Rash Verified 02/26/21 11:00 [From Compazine] prochlorperazine maleate Allergy Severe Rash Verified 02/26/21 11:00 [From Compazine] Family History Father Myocardial infarction CVA (cerebral vascular accident) Mother Heart disease Seizures Sister Seizures Grandmother Cancer Grandfather Cancer Aunt Breast cancer Surgical History H/O: hysterectomy heart catheterization History of cardiac catheterization History of carpal tunnel surgery of left wrist History of cholecystectomy (01/17/20) History of esophagogastroduodenoscopy (EGD) History of hysterectomy History of left heart catheterization (02/10/20) history stereotactic biopsy left breast (~12/22/17) Hx laparoscopic cholecystectomy Hx of colonoscopy Hx of sinus surgery Social History Smoking Status: Current every day smoker tobacco type: cigarettes second hand exposure: No alcohol intake: never substance use type: does not use caffeine: Yes what type of physical activity do you participate in: walking frequency: daily ROS ROS ED ROS Narrative She denies any recent illness. Review of Systems ROS Unobtainable: Denies due to encephalopathy Constitutional Constitutional ED: Denies fever(s) Eyes Eyes: Denies change in vision ENT ENT ED: Denies ear pain Cardiovascular Cardiovascular: Denies chest pain Respiratory/Chest Respiratory/Chest: Denies dyspnea Gastrointestinal Gastrointestinal: Denies abdominal pain, diarrhea, nausea or vomiting Genitourinary Genitourinary ED: Denies dysuria Musculoskeletal Musculoskeletal: Denies myalgias Integumentary Denies rash Neurologic Neurologic: Denies headache(s) Psychiatric Psychiatric: Denies depression Endocrine Endocrinology: Denies polyuria Hematologic/Lymphatic Hematologic/Lymphatic: Denies easy bruising Allergic/Immunologic Allergic/Immunologic ED: Denies urticaria EXAM Physical Exam Narrative Exam Narrative: Well-appearing middle-aged female. No acute distress. Vital signs stable afebrile. Exam normal except left hip nontender nonswollen. Left knee postop arthroscopic surgery. Mild swelling. Incisions are dry and clean. No bleeding. No bruising. No redness or warmth. No signs of septic joint. She is able to do flexion extension is limited but she is able to do it. Calf is nontender. Left foot neurovascular intact with palpable DP pulse dorsi and plantar flexion. Good sensation. This actually looks really good. Its normal postop course. I explained all that to the patient. There is no signs of infection or DVT at this time. Const Vital Signs: 02/26/21 10:58 Temperature 97.8 F Temperature Source Temporal Pulse Rate 90 Respiratory Rate 18 Blood Pressure 145/62 H Blood Pressure Mean 89 Pulse Ox 97 Oxygen Delivery Method Room Air Positive well nourished and well developed General Appearance ED: well developed HEENT Reports moist mucous membranes normocephalic and atraumatic Eyes PERRL Neck full ROM and supple Chest Wall inspection of chest normal and palpation of chest normal Resp normal respiratory effort, no retractions and clear to auscultation bilaterally Cardio regular rate, regular rhythm, S1 normal heart sound, S2 normal heart sound and no murmurs GI non-tender and non-distended Auscultation: normoactive bowel sounds Palpation: soft; Negative for tender Back/Spine no CVA tenderness Extremity normal to inspection Extremity Narrative: Patient status post recent left knee scope. Incisions are dry and clean. There is no cellulitis. No other signs of infection nor any septic joint. There is no redness or warmth. There is actually normal to limit postop swelling. The calf is nontender nonswollen. The left foot is neurovascularly intact. This actually looks to be healing very well and is a very normal postoperative course. Neuro oriented x3 Sensorium / Orientation: alert, oriented to person, oriented to place and oriented to time Motor Exam: strength 5/5 throughout Psych mental status grossly normal Skin Lesions: no lesions Rashes: no rashes MDM MDM MDM Narrative Medical decision making narrative: Patient presents with left knee pain after knee scope 3 days ago. There is no signs of infection. No signs of DVT. And has a improving postoperative course. Patient will continue on her current treatment plan of ice and elevation. Percocet for pain. Ibuprofen. And follow-up with her orthopedic physician appointment next Monday. Discharge Plan Triage Chief Complaint: Lower Extremity Injury ED Provider: Rashid Hanson Dx/Rx/DC Orders Clinical Impression: Acute postoperative pain of left knee Instructions: Reducing Knee Pain and Swelling Prescriptions: No Action lisinopril 5 mg tablet 2.5 mg PO DAILY RF: 0 atorvastatin 40 MG tablet 40 mg PO DAILY RF: 0 levothyroxine 25 mcg tablet 50 mcg PO DAILY RF: 0 metformin 1,000 tablet 1,000 mg PO BID RF: 0 doxepin 100 MG capsule 50 mg PO QHS RF: 0 paroxetine HCl 30 MG tablet 20 mg PO QHS RF: 0 aspirin 81 MG tablet 81 mg PO DAILY@0800 Qty: 30 RF: 0 pioglitazone 30 MG tablet 30 mg PO DAILY RF: 0 ondansetron 4 MG tablet 4 mg PO Q8H PRN PRN (Reason: Nausea) Qty: 10 RF: 0 oxycodone 5 mg tablet 5 - 10 mg PO Q4H PRN (Reason: pain) 7 Days Qty: 30 RF: 0 Primary Care Provider: Bret You Chi Referrals: Alberto Thrasher DO [STAFF PHYSICIAN] - Keep Rachel appointment Bret You Chi, MD [Primary Care Provider] - Activity Restrictions/Additional Instructions: Continue to ice and elevate your knee as much as possible at least 4 times a day for at least 30 minutes each time. Elevation to decrease pain and swelling. This is a very normal post operative course and you are doing well. Use your Percocet for pain. Also Motrin, Advil or ibuprofen 600 mg twice a day to decrease pain and swelling. Follow-up with your orthopedic physician postop appointment next Monday. Return if any fever or worsening symptoms.
== END 2021-02-26 11:38 | disposition home or self-care (01) ==
LOC: ED 11:28
PROVIDERS: Emergency Provider Emergency Medicine; PCP Family Medicine Geriatric Medicine
DX: G89.18 Other acute postprocedural pain (principal); M25.562 Pain in left knee; M19.90 Unspecified osteoarthritis, unspecified site; J44.9 Chronic obstructive pulmonary disease, unspecified; F32.9 Major depressive disorder, single episode, unspecified; E11.9 Type 2 diabetes mellitus without complications; E78.5 Hyperlipidemia, unspecified; K21.9 Gastro-esophageal reflux disease without esophagitis; I10 Essential (primary) hypertension; E03.9 Hypothyroidism, unspecified; F17.210 Nicotine dependence, cigarettes, uncomplicated; Z79.84 Long term (current) use of oral hypoglycemic drugs; Z79.899 Other long term (current) drug therapy; Z96.652 Presence of left artificial knee joint
CPT/HCPCS: 99282

== ENCOUNTER 2021-03-02 07:10 | Emergency (ER) | payer MEDICAID, SELFPAY ==
[2021-03-02 07:11] VITALS: BP 131/64; PULSE 95; RESP 16; TEMP 36.8; O2SAT 99; BMI 35.2
[2021-03-02 07:18] VITALS: BP 131/64; PULSE 95; RESP 16; TEMP 36.8; O2SAT 99
--- NOTE | 2021-03-02 07:28 | VDLE_ITS ---
Reason For Study: Pain Procedure LEFT This is a venous duplex using B-mode, color GSV is normal. flow and spectral Doppler. CFV is compressible, spontaneous, phasic, Exam performed portable in ED. competent, and demonstrates normal A preliminary report was called and/or faxed augmentation. to [facility]. FV is compressible, spontaneous, phasic, competent and demonstrates normal augmentation. POP V is compressible, spontaneous, phasic, competent and demonstrates normal augmentation. T/P Trunk is compressible. PTV is compressible. LT PerV is compressible. VL/Venous Duplex US, Unilateral Interpretation Summary There is no evidence of left lower extremity deep vein thrombosis. Left great s aphenous vein appears patent and compressible segmentally. Ordering Physician: Dlemy Norman Referring Physician: Bret You Chi Performed By: Jazmín Gardiner RVT
--- NOTE | 2021-03-02 07:30 | ED.VIS.LOWEX ---
HPI History of Present Illness Chief Complaint: Lower Extremity Injury Informant: patient Narrative Narrative: Patient is a 55-year-old female who is status post left knee arthroscopy by Dr. Thrasher performed on 02/23 presenting with worsening knee pain. Patient states it started burning last night. States she could not sleep because the pain was so bad. She notes she ran on her oxycodone on Monday, 4 days ago. She is been taking ibuprofen and Tylenol with no relief of her pain. States the pain is around her knee and behind it. She has had swelling but that does seem to improve when she raises her leg up. She denies associated distal numbness or tingling. She denies any new weakness. She denies any chest pain, shortness breath or difficulty breathing. Her follow-up appointment is on the . Patient was seen in the ER 4 days ago for postop pain. States at that time the pain was different. [facility] Medical History Abnormal stress test Abrasion Ambulates with cane Arthritis Biliary dyskinesia Blackout Cardiology follow-up encounter Chest pain Chronic anemia Constipation COPD (chronic obstructive pulmonary disease) with emphysema COPD exacerbation CPAP (continuous positive airway pressure) dependence Depression Diabetes Diabetes type 2, controlled Dietary restriction Dyslipidemia Easy bruising Fibroadenoma of left breast Gastric reflux Hemorrhoid High cholesterol History of back problems History of non-ST elevation myocardial infarction (NSTEMI) (01/17/20) History of pain when walking History of stress test Hypertension Hypoglycemia Hypothyroidism Insomnia Left arm numbness Left carotid bruit Low iron Microcalcification of left breast on mammogram Nicotine dependence Right lower lobe pneumonia Segmental and somatic dysfunction of lumbar region Segmental and somatic dysfunction of pelvic region Shortness of breath on exertion Sleep apnea Smoker Syncope Thyroid disease Unstable angina Wears glasses Wears partial dentures Home Medications atorvastatin 40 mg PO DAILY 08/11/14 [History Last Taken 03/29/19] lisinopril 5 mg tablet 2.5 mg PO DAILY 10/24/17 [History Last Taken 02/10/20] metformin 1,000 mg PO BID 03/29/19 [History Last Taken 02/09/20] doxepin 50 mg PO QHS 09/27/19 [History Last Taken Unknown] paroxetine HCl 20 mg PO QHS 12/14/19 [History Last Taken Unknown] aspirin 81 mg PO DAILY@0800 #30 tablet 01/18/20 [Rx Last Taken 02/19/21] levothyroxine 25 mcg tablet 50 mcg PO DAILY tablet 06/17/20 [History Last Taken Unknown] ondansetron 4 mg PO Q8H PRN PRN #10 tablet 09/03/20 [Rx Last Taken Unknown] pioglitazone 30 mg PO DAILY 09/03/20 [History Last Taken Unknown] oxycodone 5 - 10 mg PO Q4H PRN 7 Days #30 tab 02/23/21 [Rx Last Taken Unknown] oxycodone 5 mg tablet 5 - 10 mg PO Q4H PRN 7 Days #40 tab 03/02/21 [Rx Last Taken Unknown] Allergy/AdvReac Type Severity Reaction Status Date / Time prochlorperazine edisylate Allergy Severe Rash Verified 03/02/21 07:15 [From Compazine] prochlorperazine maleate Allergy Severe Rash Verified 03/02/21 07:15 [From Compazine] Family History Father Myocardial infarction CVA (cerebral vascular accident) Mother Heart disease Seizures Sister Seizures Grandmother Cancer Grandfather Cancer Aunt Breast cancer Surgical History H/O: hysterectomy heart catheterization History of cardiac catheterization History of carpal tunnel surgery of left wrist History of cholecystectomy (01/17/20) History of esophagogastroduodenoscopy (EGD) History of hysterectomy History of left heart catheterization (02/10/20) history stereotactic biopsy left breast (~12/22/17) Hx laparoscopic cholecystectomy Hx of colonoscopy Hx of sinus surgery Social History Smoking Status: Current every day smoker tobacco type: cigarettes second hand exposure: No alcohol intake: never substance use type: does not use caffeine: Yes what type of physical activity do you participate in: walking frequency: daily ROS ROS ED Constitutional Constitutional ED: Denies chills or fever(s) ENT ENT ED: Denies rhinorrhea Cardiovascular Cardiovascular: Denies chest pain or palpitations Respiratory/Chest Respiratory/Chest: Denies dyspnea or dyspnea on exertion Gastrointestinal Gastrointestinal: Denies abdominal pain or vomiting Musculoskeletal Musculoskeletal: Reports other Details: Left knee pain ; Denies myalgias Integumentary Denies rash Neurologic Neurologic: Denies headache(s), paresthesias or weakness Psychiatric Psychiatric: Denies depression EXAM Physical Exam Const Vital Signs: 03/02/21 07:11 03/02/21 07:18 Temperature 98.2 F 98.2 F Temperature Source Oral Oral Pulse Rate 95 95 Respiratory Rate 16 16 Blood Pressure 131/64 H 131/64 H Blood Pressure Mean 86 86 Pulse Ox 99 99 Oxygen Delivery Method Room Air Room Air Positive well nourished and well developed General Appearance ED: well developed HEENT normocephalic and atraumatic Eyes PERRL Neck full ROM and supple Chest Wall inspection of chest normal Resp normal respiratory effort Cardio regular rate and regular rhythm Cardio Narrative: 2+ DP pulse on left Extremity Extremity Narrative: Diffuse tenderness to deep palpation of the left knee. No pinpoint area of pain. There is mild swelling but this appears consistent with her postoperative status. Range of motion is limited secondary to pain. No obvious bony deformity. Mild distal edema, nonpitting, present. No palpable cords. Neuro oriented x3 and moves all extremities Neuro Narrative: Decreased strength of the left lower extremity secondary to pain. Sensation intact in all dermatomes. Sensorium / Orientation: alert Psych mental status grossly normal Skin Skin Narrative: Surgical incisions on left knee are nontender. Sutures in place. They appear to be healing appropriately with no signs of infection including erythema, fluctuance or drainage. Patient does have some scattered petechia of her distal leg/foot which she states has been present since the procedure. No significant ecchymosis present. No erythema. MDM MDM MDM Narrative Medical decision making narrative: Patient evaluated for worsening postoperative pain. She has pain around her left knee where she had a recent arthroscopy. Patient peers nontoxic in no acute distress. I do not suspect infected joint. The surgical incision sites he appear clean, dry and appear to be healing well. Patient is given IM morphine for pain control and then oral oxycodone. Venous duplex obtained to rule out DVT. This was negative for DVT . I did discuss with her surgeon her pain control issues. He will E prescribe her more Percocet and Tylenol 2. Patient will be discharged home for outpatient follow-up. She is counseled that this likely is continued normal postoperative pain. She is counseled on ice, elevation and also take NSAIDs for pain control. She verbalizes agreement understand with this plan. Discharged home in stable condition. Discharge Plan Triage Chief Complaint: Lower Extremity Injury ED Provider: Delmy Norman Dx/Rx/DC Orders Clinical Impression: Acute postoperative pain of left knee Instructions: ED Post Op Wound Check, Pain Prescriptions: No Action lisinopril 5 mg tablet 2.5 mg PO DAILY RF: 0 atorvastatin 40 MG tablet 40 mg PO DAILY RF: 0 levothyroxine 25 mcg tablet 50 mcg PO DAILY RF: 0 metformin 1,000 tablet 1,000 mg PO BID RF: 0 doxepin 100 MG capsule 50 mg PO QHS RF: 0 paroxetine HCl 30 MG tablet 20 mg PO QHS RF: 0 aspirin 81 MG tablet 81 mg PO DAILY@0800 Qty: 30 RF: 0 pioglitazone 30 MG tablet 30 mg PO DAILY RF: 0 ondansetron 4 MG tablet 4 mg PO Q8H PRN PRN (Reason: Nausea) Qty: 10 RF: 0 oxycodone 5 mg tablet 5 - 10 mg PO Q4H PRN (Reason: pain) 7 Days Qty: 30 RF: 0 oxycodone 5 mg tablet 5 - 10 mg PO Q4H PRN (Reason: pain) 7 Days Qty: 40 RF: 0 Primary Care Provider: Bret You Chi Referrals: Alberto Thrasher DO [STAFF PHYSICIAN] - (As scheduled ) Bret You Chi, MD [Primary Care Provider] - Activity Restrictions/Additional Instructions: Dr. Thrasher will send in more prescriptions for pain control. Also take Ibuprofen, use ice and elevte your leg. Disposition Disposition: Home, Self Care
[2021-03-02] MEDS: Morphine 4 MG/ML Syringe 6 MG IM (07:35)
[2021-03-02] MEDS: oxyCODONE 5 MG Tablet PO (10:46)
[2021-03-02 10:50] VITALS: PULSE 78; RESP 18; O2SAT 97
== END 2021-03-02 10:50 | disposition home or self-care (01) ==
PROVIDERS: Emergency Provider Emergency Medicine; PCP Family Medicine Geriatric Medicine
DX: G89.18 Other acute postprocedural pain (principal); M25.562 Pain in left knee; M19.90 Unspecified osteoarthritis, unspecified site; J44.9 Chronic obstructive pulmonary disease, unspecified; F32.9 Major depressive disorder, single episode, unspecified; E11.9 Type 2 diabetes mellitus without complications; E78.5 Hyperlipidemia, unspecified; K21.9 Gastro-esophageal reflux disease without esophagitis; I10 Essential (primary) hypertension; F17.210 Nicotine dependence, cigarettes, uncomplicated; E03.9 Hypothyroidism, unspecified; Z79.84 Long term (current) use of oral hypoglycemic drugs; Z79.899 Other long term (current) drug therapy; Z96.652 Presence of left artificial knee joint
CPT/HCPCS: 93971; 96372; 99283

== ENCOUNTER → 2021-03-08 11:03 | Outpatient (CLI) | payer MEDICAID, SELFPAY ==
[2021-03-08 07:59] VITALS: BMI 35.2
[2021-03-08 12:18] LABS: Absolute Lymphocyte Count 1.02 X10^3/uL (0.83-4.51); Absolute Neutrophil Count 4.1 X10^3/uL (2.0-7.7); Basophil# 0.04 X10^3/uL; Basophil% 0.7 % (0-1); Eosinophil# 0.21 X10^3/uL; Eosinophils% 3.6 % (0-5); Hematocrit 35.2 % (37-47); Hemoglobin 10.9 g/dL (12.0-15.0); Lymphocyte # 1.02 X10^3/ul (0.83-4.51); Lymphocyte % 17.6 % (19-41); Mean Corpuscular Hgb 31.7 pg (27.0-32.0); Mean Corpuscular Volume 102.3 fL (81-99); Mean Platelet Vol. 8.1 fl (6.2-12.0); Monocyte% 6.9 % (0-10); NRBC Flagged by Analyzer 0 % (0-5); Neutrophil # 4.08 X10^3/uL (2.7-7.7); Neutrophil % 70.7 % (47-70); Platelet Count 469 K/mm3 (150-450); RBC Distribution Width CV 14.2 % (11.6-14.6); RBC Distribution Width SD 52.1 fl (35.1-43.9); Red Blood Count 3.44 M/mm3 (4.2-5.4); White Blood Count 5.8 K/mm3 (4.4-11.0)
[2021-03-08 12:43] LABS: ALB/GLOB Ratio 1.1 RATIO (0.9-2.4); AST(SGOT) 25 U/L (15-37); Alanine Aminotransfer ALT/SGPT 51 U/L (13-56); Albumin, Serum 3.6 g/dL (3.2-5.0); Alkaline Phosphatase 147 U/L (45-117); Anion Gap 10 (5-15); BUN 21 mg/dL (7-18); BUN/Creat Ratio 14.4 RATIO (10-20); Calcium,Total 8.9 mg/dL (8.5-10.1); Chloride 104 mmol/L (98-107); Creatinine, Serum 1.46 mg/dL (0.55-1.02); EST Glomerular Filtration Rate 39 mL/min (>60); Est Glom Filt Rate - Afr Amer 48 mL/min (>60); Globulin 3.3 g/dL (2.2-4.2); Glucose 115 mg/dL (74-106); Potassium 4.7 mmol/L (3.5-5.1); Protein, Total 6.9 g/dL (6.4-8.2); Sodium Level 134 mmol/L (136-145); Thyroid Stim Hormone (TSH) 0.41 uIU/mL (0.358-3.74)
== END ==
PROVIDERS: PCP Family Medicine Geriatric Medicine; Visit Provider Family Medicine Geriatric Medicine
DX: I10 Essential (primary) hypertension (principal); E11.9 Type 2 diabetes mellitus without complications
CPT/HCPCS: 36415; 80053; 84443; 85025

== ENCOUNTER → 2021-03-17 | Outpatient (CLI) | payer MEDICAID, SELFPAY ==
[2021-03-16 14:03] VITALS: BMI 28.3
[2021-03-17 11:12] LABS: Microalbumin,Random Urine 9.1 mg/L (NO RANGE EST.); Microalbumin:Creatinine Ratio 12.4 mg/g CRE (<30 mg/g CRE)
== END | disposition home or self-care (01) ==
LOC: LABSPEC 09:54
PROVIDERS: PCP Family Medicine Geriatric Medicine; Visit Provider Internal Medicine Nephrology
DX: E11.9 Type 2 diabetes mellitus without complications (principal)
CPT/HCPCS: 82043; 82570

== ENCOUNTER 2021-03-29 14:30 | Outpatient (RCR) | payer MEDICAID, SELFPAY ==
[2021-03-08 07:59] VITALS: BMI 35.2
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
--- NOTE | 2021-04-02 13:45 | HP.PT.NRP ---
FLORINDA LOPEZ was seen in my office for initial evaluation on 03/11/21. The following Plan of Care was established for this patient: Initial Frequency: 3x /Week Initial Duration: 4-6 Weeks Patient/Client Instruction: Educate patient on: Condition, Plan of Care For the Purpose of:: To decrease pain, To increase ROM, To improve muscle performance and motor function, To increase tolerance to activity/condition/position, To improve gait and locomotor functions Therapeutic Exercise to Include: Strength training, Flexibilty training, Gait and locomotor training, Neuromotor development, Passive ROM, Active ROM For the Purpose of:: To decrease pain, To increase ROM, To improve muscle performance and motor function, To increase tolerance to activity/condition/position, To improve ability of physical actions for home/community/work/leisure, To improve gait and locomotor functions Manual Therapy Techniques to Include: Mobilization, Soft tissue mobilization For the Purpose of:: To decrease pain, To increase ROM Cryotherapy (ice pack, ice massage): Yes For the Purpose of:: To decrease swelling/inflammation This patient was last seen in our office 03/29/21. Pertinent comments regarding their Physical therapy will appear below: Pt seen for only two treatments adn was doing OK according to her notes however compliance with frequency of PT not great. She only had two visits in the three weeks she has been a patient. Despite that, she has cancelled all visits stating it is not helping her knee. iw ill disocntinue at her request. At this point I will be discontinuing this patient from physical therapy. I would be happy to see this patient again in the future if found appropriate by the physician. Thank you! Nikhil Salmon, DPT, OCS, CSCS Balance/Gait/Functional tests - Balance/Special Test Scores Functional Gait Assessment Score: 26 % Disability: 13.3400 Lower Extremity Functional Score: 56
== END 2021-03-29 19:00 | disposition home or self-care (01) ==
LOC: PT 14:30
PROVIDERS: PCP Family Medicine Geriatric Medicine; Referring Provider Orthopaedic Surgery; Visit Provider Orthopaedic Surgery
DX: Z47.89 Encounter for other orthopedic aftercare (principal); M17.12 Unilateral primary osteoarthritis, left knee
CPT/HCPCS: 97110; 97161

== ENCOUNTER 2021-05-15 10:22 | Emergency (ER) | payer MEDICAID, SELFPAY ==
[2021-05-15 10:23] VITALS: BP 123/55; PULSE 106; RESP 16; TEMP 37.2; O2SAT 100; BMI 30.8
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
--- NOTE | 2021-05-15 10:35 | RAD_ITS ---
STUDY: X-RAY - RIGHT HAND, ATTENTION 3 FINGER REASON FOR EXAM: Female, 55 years old. pain right middle finger TECHNIQUE: 3 view(s) of the finger were obtained. COMPARISON: None. FINDINGS: Normal metacarpal head. Normal metacarpophalangeal joint. Normal proximal phalanx. Normal middle phalanx. Normal distal phalanx. Normal proximal interphalangeal joint. Normal distal interphalangeal joint. RAD/Finger(s) Min 2 Views IMPRESSION: Normal x-ray examination of the finger. Electronically Signed: Adrian Joseph MD at 11:05 EDT Tel , Service support ,
[2021-05-15 11:44] VITALS: PULSE 80; RESP 18; O2SAT 97
== END 2021-05-15 11:45 | disposition home or self-care (01) ==
PROVIDERS: Emergency Provider Emergency Medicine; PCP Family Medicine Geriatric Medicine
DX: L03.011 Cellulitis of right finger (principal); F17.210 Nicotine dependence, cigarettes, uncomplicated; E78.00 Pure hypercholesterolemia, unspecified; E78.5 Hyperlipidemia, unspecified; E11.9 Type 2 diabetes mellitus without complications; E03.9 Hypothyroidism, unspecified; E11.649 Type 2 diabetes mellitus with hypoglycemia without coma; G47.30 Sleep apnea, unspecified; I25.2 Old myocardial infarction; K21.9 Gastro-esophageal reflux disease without esophagitis; I10 Essential (primary) hypertension; Z79.84 Long term (current) use of oral hypoglycemic drugs; Z79.899 Other long term (current) drug therapy
CPT/HCPCS: 73140; 99283

== ENCOUNTER 2021-05-20 09:35 | Inpatient (IN) | payer MEDICAID, SELFPAY ==
[2021-05-20 09:36] VITALS: BP 123/56; PULSE 105; RESP 25; TEMP 36.4; O2SAT 100; BMI 31.6
--- NOTE | 2021-05-20 09:41 | ED.RN ---
bgl for ems at d50, 103, bgl in ed 75. snack and drink given to pt.
--- NOTE | 2021-05-20 10:04 | EX.ED.DYSGE1 ---
HPI History of Present Illness Chief Complaint: Hypoglycemia Informant: patient Narrative Narrative: Patient was difficult to arouse from bed this morning by family member, called EMS who checked her blood sugar and it was 23. They placed an IV and gave an amp of D50, she became alert and on recheck she is at 103. She feels fine now. She states she does not know what happened, she awoke to EMS in her bedroom. She states she is on Metformin and other oral hypoglycemics, no insulin, for her type 2 diabetes. She has taken no extra doses of her medications. She has not taken this morning's medications yet since she was not awake yet. She did not eat very much last night for dinner and then nothing before going to bed. No recent illnesses. She feels fine now. She denies any focal neurologic symptoms or vision changes. [facility] Medical History Abnormal stress test Abrasion Ambulates with cane Arthritis Biliary dyskinesia Blackout Cardiology follow-up encounter Chest pain Chronic anemia Constipation COPD (chronic obstructive pulmonary disease) with emphysema COPD exacerbation CPAP (continuous positive airway pressure) dependence CRF (chronic renal failure) Depression Diabetes Diabetes type 2, controlled Dietary restriction Dyslipidemia Easy bruising Fibroadenoma of left breast Gastric reflux Hemorrhoid High cholesterol History of back problems History of non-ST elevation myocardial infarction (NSTEMI) (01/17/20) History of pain when walking History of stress test Hypertension Hypoglycemia Hypothyroidism Insomnia Left arm numbness Left carotid bruit Low iron Microcalcification of left breast on mammogram Nicotine dependence Right lower lobe pneumonia Segmental and somatic dysfunction of lumbar region Segmental and somatic dysfunction of pelvic region Shortness of breath on exertion Sleep apnea Smoker Syncope Thyroid disease Unstable angina Wears glasses Wears partial dentures Home Medications atorvastatin 40 mg PO DAILY 08/11/14 [History Last Taken 03/29/19] lisinopril 5 mg tablet 2.5 mg PO DAILY 10/24/17 [History Last Taken 02/10/20] metformin 1,000 mg PO BID 03/29/19 [History Last Taken 02/09/20] doxepin 50 mg PO QHS 09/27/19 [History Last Taken Unknown] paroxetine HCl 20 mg PO QHS 12/14/19 [History Last Taken Unknown] levothyroxine 25 mcg tablet 50 mcg PO DAILY tablet 06/17/20 [History Last Taken Unknown] etodolac 500 mg tablet 500 mg PO BID tab 04/08/21 [History Last Taken Unknown] pioglitazone 30 mg tablet 30 mg PO DAILY 04/08/21 [History Last Taken Unknown] cephalexin 500 mg PO Q6 #40 capsule 05/15/21 [Rx Last Taken Unknown] famotidine 40 mg PO DAILY 05/15/21 [History Last Taken Unknown] glimepiride 2 mg PO DAILY 05/15/21 [History Last Taken Unknown] pantoprazole 40 mg PO DAILY 05/15/21 [History Last Taken Unknown] sulfamethoxazole-trimethoprim 1 tab PO BID #20 tablet 05/15/21 [Rx Last Taken Unknown] prednisone 10 mg tablet tablet PO 05/19/21 [History Last Taken Unknown] Allergy/AdvReac Type Severity Reaction Status Date / Time prochlorperazine edisylate Allergy Severe Rash Verified 05/20/21 09:39 [From Compazine] prochlorperazine maleate Allergy Severe Rash Verified 05/20/21 09:39 [From Compazine] Family History Father Myocardial infarction CVA (cerebral vascular accident) Mother Heart disease Seizures Sister Seizures Grandmother Cancer Grandfather Cancer Aunt Breast cancer Surgical History H/O: hysterectomy heart catheterization History of cardiac catheterization History of carpal tunnel surgery of left wrist History of cholecystectomy (01/17/20) History of esophagogastroduodenoscopy (EGD) History of hysterectomy History of left heart catheterization (02/10/20) history stereotactic biopsy left breast (~12/22/17) Hx laparoscopic cholecystectomy Hx of colonoscopy Hx of sinus surgery Social History Smoking Status: Current every day smoker tobacco type: cigarettes second hand exposure: No alcohol intake: never substance use type: does not use caffeine: Yes what type of physical activity do you participate in: walking frequency: daily ROS ROS ED Constitutional Constitutional ED: Denies chills or fever(s) Eyes Eyes: Denies change in vision or diplopia ENT ENT ED: Denies rhinorrhea or sore throat Cardiovascular Cardiovascular: Denies chest pain or palpitations Respiratory/Chest Respiratory/Chest: Denies cough or dyspnea Gastrointestinal Gastrointestinal: Denies abdominal pain, diarrhea, nausea or vomiting Genitourinary Genitourinary ED: Denies dysuria or hematuria Musculoskeletal Musculoskeletal: Denies back pain or neck pain Integumentary Denies abscess or rash Neurologic Neurologic: Denies headache(s), paresthesias or weakness Psychiatric Psychiatric: Denies anxiety or suicidal thoughts EXAM Physical Exam Const Vital Signs: 05/20/21 09:36 05/20/21 09:43 05/20/21 11:49 Temperature 97.5 F L Temperature Source Oral Pulse Rate 105 H Respiratory Rate 25 H Respiratory Effort Normal Non-Labored Blood Pressure 123/56 H 118/90 H Blood Pressure Mean 78 99 Pulse Ox 100 100 Oxygen Delivery Method Room Air Room Air 05/20/21 12:10 Temperature Temperature Source Pulse Rate Respiratory Rate Respiratory Effort Blood Pressure 104/67 Blood Pressure Mean 79 Pulse Ox 100 Oxygen Delivery Method Room Air Positive well nourished and well developed General Appearance ED: well developed and NAD HEENT Reports moist mucous membranes normocephalic and atraumatic Eyes PERRL and EOMs intact bilaterally Neck full ROM and supple Resp normal respiratory effort and clear to auscultation bilaterally Cardio regular rate, regular rhythm and no murmurs GI non-tender and non-distended Auscultation: normoactive bowel sounds Palpation: soft Back/Spine no CVA tenderness General Back: other FROM Extremity normal to inspection General Extremety ED: Negative for edema, pulses abnormal or tenderness General Extremity: Negative for edema or pulses abnormal Neuro oriented x3, CN's II-XII intact bilaterally and no sensory deficits noted Sensorium / Orientation: awake and alert Motor Exam: strength 5/5 throughout Skin no rashes or lesions noted and no wounds MDM MDM MDM Narrative Medical decision making narrative: Patient ate and we watched her sugar for several hours and it remained stable. Given that she woke up this way and I have no idea how long she was unconscious/hypoglycemic for, I obtained some labs. They show significant renal failure that is new for her. She has never seen a deputy felony clerk before. She states she has been urinating normally without any edema in her legs. I suspect this could have been why she had hypoglycemia, with decreased clearance of her oral hypoglycemics. Plan is for admission. EKG obtained given the mild hyperkalemia, no changes of hyperkalemia, she does not require any specific treatment right now for that but will be watched and she will be monitored upstairs. Lab Data Attestation: I reviewed the patient's lab results. Labs: Laboratory Results - last 24 hr 05/20/21 05/20/21 05/20/21 09:40 10:13 10:30 WBC 8.5 RBC 3.25 L Hgb 10.2 L Hct 32.5 L MCV 100.0 H MCH 31.4 MCHC 31.4 L RDW Std Deviation 53.1 H RDW Coeff of Autumn 14.4 Plt Count 382 MPV 8.0 Immature Gran % (Auto) 0.900 Neut % (Auto) 81.6 H Lymph % (Auto) 9.9 L [place] % (Auto) 7.4 Eos % (Auto) 0.1 Baso % (Auto) 0.1 Absolute Neuts (auto) 6.9 Absolute Lymphs (auto) 0.84 Nucleated RBC % 0 Sodium Potassium Chloride Carbon Dioxide Anion Gap BUN Creatinine Estim Creat Clear Calc Est GFR (MDRD) Af Amer Est GFR (MDRD) Non-Af BUN/Creatinine Ratio Glucose Calcium Troponin I High Sens POC Glucose 75 82 05/20/21 05/20/21 05/20/21 10:30 11:13 12:24 WBC RBC Hgb Hct MCV MCH MCHC RDW Std Deviation RDW Coeff of Autumn Plt Count MPV Immature Gran % (Auto) Neut % (Auto) Lymph % (Auto) [place] % (Auto) Eos % (Auto) Baso % (Auto) Absolute Neuts (auto) Absolute Lymphs (auto) Nucleated RBC % Sodium 134 L Potassium 5.4 H Chloride 107 Carbon Dioxide 18.0 L Anion Gap 9 BUN 54 H Creatinine 4.42 H Estim Creat Clear Calc 10.33 Est GFR (MDRD) Af Amer 13 L Est GFR (MDRD) Non-Af 11 L BUN/Creatinine Ratio 12.2 Glucose 121 H Calcium 8.7 Troponin I High Sens 8 POC Glucose 128 H 103 EKG Initial EKG: Attestation: I personally reviewed and interpreted this EKG as follows: Interpretation: Sinus Rhythm and No Acute Injury Pattern Comments: Normal T waves. Normal QRS. Discharge Plan Dx/Rx/DC Orders Clinical Impression: Acute renal failure (ARF), Hypoglycemia, Acute hyperkalemia Disposition Disposition: Acute Care Hospital [facility] Discharge Date/Time: 05/20/21 13:37
[2021-05-20 10:21] LABS: Bedside Glucose 82 mg/dL (70-110)
[2021-05-20 10:38] LABS: Absolute Lymphocyte Count 0.84 X10^3/uL (0.83-4.51); Absolute Neutrophil Count 6.9 X10^3/uL (2.0-7.7); Basophil# 0.01 X10^3/uL; Basophil% 0.1 % (0-1); Eosinophil# 0.01 X10^3/uL; Eosinophils% 0.1 % (0-5); Hematocrit 32.5 % (37-47); Hemoglobin 10.2 g/dL (12.0-15.0); Lymphocyte # 0.84 X10^3/ul (0.83-4.51); Lymphocyte % 9.9 % (19-41); Mean Corp Hgb Conc 31.4 g/dL (32-36); Mean Corpuscular Hgb 31.4 pg (27.0-32.0); Monocyte# 0.63 X10^3/uL; Monocyte% 7.4 % (0-10); NRBC Flagged by Analyzer 0 % (0-5); Neutrophil % 81.6 % (47-70); Platelet Count 382 K/mm3 (150-450); RBC Distribution Width CV 14.4 % (11.6-14.6); RBC Distribution Width SD 53.1 fl (35.1-43.9); Red Blood Count 3.25 M/mm3 (4.2-5.4); White Blood Count 8.5 K/mm3 (4.4-11.0)
[2021-05-20 10:57] LABS: Anion Gap 9 (5-15); BUN 54 mg/dL (7-18); BUN/Creat Ratio 12.2 RATIO (10-20); Calcium,Total 8.7 mg/dL (8.5-10.1); Chloride 107 mmol/L (98-107); Creatinine, Serum 4.42 mg/dL (0.55-1.02); EST Glomerular Filtration Rate 11 mL/min (>60); Est Glom Filt Rate - Afr Amer 13 mL/min (>60); Estimated Creatinine Clearance 10.33 ml/min; Glucose 121 mg/dL (74-106); Potassium 5.4 mmol/L (3.5-5.1); Sodium Level 134 mmol/L (136-145); Troponin-I HS 8 pg/mL (3.0-54.0)
[2021-05-20 11:21] LABS: Bedside Glucose 75 mg/dL (70-110)
[2021-05-20 11:21] LABS: Bedside Glucose 128 mg/dL (70-110)
[2021-05-20 11:49] VITALS: BP 118/90; O2SAT 100
[2021-05-20 12:10] VITALS: BP 104/67; O2SAT 100
--- NOTE | 2021-05-20 12:26 | ED.RN ---
PER AILEEN DAWN TO D/C BGT AT THIS TIME.
[2021-05-20 12:31] LABS: Bedside Glucose 103 mg/dL (70-110)
--- NOTE | 2021-05-20 12:46 | EKG12_ITS ---
Test Reason : LOW BP Blood Pressure : / mmHG Vent. Rate : 095 BPM Atrial Rate : 095 BPM P-R Int : 174 ms QRS Dur : 084 ms QT Int : 350 ms P-R-T Axes : 073 055 049 degrees QTc Int : 439 ms Normal sinus rhythm Normal ECG Confirmed by JULIETA PEDROZA, DANILO ([id number]), newspaper managing editor TIFFANIE CARDONA ([id number]) on 05/21/2021 1:21:53 PM Referred By: HOLLAND Confirmed By:MEGAN RENDON MD
--- NOTE | 2021-05-20 13:02 | PCM.HP.STD ---
HPI - General General Date of Admission: 05/20/21 HPI Narrative FLORINDA LOPEZ, is a 55 F who presents with hypoglycemia. Patient has multiple comorbidities including diabetes mellitus type 2 as well as COPD. She was apparently found unresponsive on the morning of her presentation. EMS squad was called. Patient was found to have blood glucose level of 23. She did receive 12.5 g of D50 and subsequently transferred to the ED. In the emergency department patient was found to have acute kidney injury with creatinine of 4.42. Creatinine as of 12/08/2020 was 0 point 9/4 and 03/08/2021 was 1.46. Was started on IV fluids admitted to regular nursing floor for further management [facility] Medical History Abnormal stress test Abrasion Ambulates with cane Arthritis Biliary dyskinesia Blackout Cardiology follow-up encounter Chest pain Chronic anemia Constipation COPD (chronic obstructive pulmonary disease) with emphysema COPD exacerbation CPAP (continuous positive airway pressure) dependence CRF (chronic renal failure) Depression Diabetes Diabetes type 2, controlled Dietary restriction Dyslipidemia Easy bruising Fibroadenoma of left breast Gastric reflux Hemorrhoid High cholesterol History of back problems History of non-ST elevation myocardial infarction (NSTEMI) (01/17/20) History of pain when walking History of stress test Hypertension Hypoglycemia Hypothyroidism Insomnia Left arm numbness Left carotid bruit Low iron Microcalcification of left breast on mammogram Nicotine dependence Right lower lobe pneumonia Segmental and somatic dysfunction of lumbar region Segmental and somatic dysfunction of pelvic region Shortness of breath on exertion Sleep apnea Smoker Syncope Thyroid disease Unstable angina Wears glasses Wears partial dentures Home Medications atorvastatin 40 mg PO DAILY 08/11/14 [History Last Taken 03/29/19] lisinopril 5 mg tablet 2.5 mg PO DAILY 10/24/17 [History Last Taken 02/10/20] metformin 1,000 mg PO BID 03/29/19 [History Last Taken 02/09/20] doxepin 50 mg PO QHS 09/27/19 [History Last Taken Unknown] paroxetine HCl 20 mg PO QHS 12/14/19 [History Last Taken Unknown] levothyroxine 25 mcg tablet 50 mcg PO DAILY tablet 06/17/20 [History Last Taken Unknown] etodolac 500 mg tablet 500 mg PO BID tab 04/08/21 [History Last Taken Unknown] pioglitazone 30 mg tablet 30 mg PO DAILY 04/08/21 [History Last Taken Unknown] cephalexin 500 mg PO Q6 #40 capsule 05/15/21 [Rx Last Taken Unknown] famotidine 40 mg PO DAILY 05/15/21 [History Last Taken Unknown] glimepiride 2 mg PO DAILY 05/15/21 [History Last Taken Unknown] pantoprazole 40 mg PO DAILY 05/15/21 [History Last Taken Unknown] sulfamethoxazole-trimethoprim 1 tab PO BID #20 tablet 05/15/21 [Rx Last Taken Unknown] prednisone 10 mg tablet tablet PO 05/19/21 [History Last Taken Unknown] Allergy/AdvReac Type Severity Reaction Status Date / Time prochlorperazine edisylate Allergy Severe Rash Verified 05/20/21 09:39 [From Compazine] prochlorperazine maleate Allergy Severe Rash Verified 05/20/21 09:39 [From Compazine] Family History Father Myocardial infarction CVA (cerebral vascular accident) Mother Heart disease Seizures Sister Seizures Grandmother Cancer Grandfather Cancer Aunt Breast cancer Surgical History H/O: hysterectomy heart catheterization History of cardiac catheterization History of carpal tunnel surgery of left wrist History of cholecystectomy (01/17/20) History of esophagogastroduodenoscopy (EGD) History of hysterectomy History of left heart catheterization (02/10/20) history stereotactic biopsy left breast (~12/22/17) Hx laparoscopic cholecystectomy Hx of colonoscopy Hx of sinus surgery Social History Smoking Status: Current every day smoker tobacco type: cigarettes second hand exposure: No alcohol intake: never substance use type: does not use caffeine: Yes what type of physical activity do you participate in: walking frequency: daily ROS ROS Narrative GENERAL: denies fever, chills, night sweats, weight loss, anorexia HEENT: denies headache, sinus congestion, or drainage, dysphagia RESPIRATORY: denies cough, sputum production, shortness of breath, CARDIAC: denies chest pain, palpitations, orthopnea, PND GASTROINTESTINAL: denies abdominal pain, nausea, vomiting, melena, GENITOURINARY: denies dysuria, urgency, frequency, heamaturia EXTREMITY: denies swelling MUSCULOSKELETAL: denies current joint pain or tenderness NEUROLOGIC: denies focal numbness, weakness, tingling HEMATOLOGIC: denies easy bruising and/or hemorrhage INTEGUMENT: denies rashes PSYCHIATRIC: denies suicidal or homicidal ideation Vital Signs Vital Signs Vital Signs: 05/20/21 09:36 05/20/21 09:43 05/20/21 11:49 Temperature 97.5 F L Temperature Source Oral Pulse Rate 105 H Respiratory Rate 25 H Respiratory Effort Normal Non-Labored Blood Pressure 123/56 H 118/90 H Blood Pressure Mean 78 99 Pulse Ox 100 100 Oxygen Delivery Method Room Air Room Air 05/20/21 12:10 Temperature Temperature Source Pulse Rate Respiratory Rate Respiratory Effort Blood Pressure 104/67 Blood Pressure Mean 79 Pulse Ox 100 Oxygen Delivery Method Room Air Weight Weight: 73.6 kg Body Mass Index (BMI) 31.6 Physical Exam Narrative GENERAL: cooperative HEENT: Atraumatic; EYES; Anicteric, Normal Conjunctiva NECK; supple, normal thyroid, RESPIRATORY: Diminished to auscultation CARDIOVASCULAR: Regular S1 S2, GI: soft, normoactive bowel sounds, : No Renal angle tenderness; EXTREMITIES: No edema, no clubbing, MUSCULOSKELETAL: no muscle waisting NEURO: Awake; no lateralizing signs. SKIN: No Rash PSYCH; Flat affect Results Lab / Micro Data Result Diagrams: 05/20/21 10:30 05/20/21 10:30 Labs: Laboratory Results - last 24 hr 05/20/21 09:40: POC Glucose 75 05/20/21 10:13: POC Glucose 82 05/20/21 10:30: WBC 8.5, RBC 3.25 L, Hgb 10.2 L, Hct 32.5 L, MCV 100.0 H, MCH 31.4, MCHC 31.4 L, RDW Std Deviation 53.1 H, RDW Coeff of Autumn 14.4, Plt Count 382, MPV 8.0, Immature Gran % (Auto) 0.900, Neut % (Auto) 81.6 H, Lymph % (Auto) 9.9 L, [place] % (Auto) 7.4, Eos % (Auto) 0.1, Baso % (Auto) 0.1, Absolute Neuts (auto) 6.9, Absolute Lymphs (auto) 0.84, Nucleated RBC % 0 05/20/21 10:30: Sodium 134 L, Potassium 5.4 H, Chloride 107, Carbon Dioxide 18.0 L, Anion Gap 9, BUN 54 H, Creatinine 4.42 H, Estim Creat Clear Calc 10.33, Est GFR (MDRD) Af Amer 13 L, Est GFR (MDRD) Non-Af 11 L, BUN/Creatinine Ratio 12.2, Glucose 121 H, Calcium 8.7, Troponin I High Sens 8 05/20/21 11:13: POC Glucose 128 H 05/20/21 12:24: POC Glucose 103 Assessment & Plan Assessment/Plan (1) Acute hyperkalemia: (2) Hypoglycemia: (3) Acute renal failure (ARF): PLAN: Patient is a 55-year-old lady brought in with unresponsiveness found to be hypoglycemic. She was also found to have hyperkalemia as well as acute kidney injury admitted to regular nursing floor for further management 1. Acute metabolic encephalopathy ?Secondary to hypoglycemia as a result of sulfonylurea use. Patient will glucose level at the time she was found was 23 resuscitated with D50 and subsequently brought to the emergency department.. Patient has been admitted to regular nursing floor currently being monitored with every 4 Accu-Cheks 2. Acute hypoglycemia ?In a patient with diabetes mellitus type 2 on Metformin as well as sulfonylurea?Glimepiride. Patient diabetic medications held. Resuscitated with D5 admitted to regular nursing floor with every 4 Accu-Cheks ordered 3. Diabetes mellitus type 2 ?Patient presented with complications including hypoglycemia management as discussed above 4. Acute kidney injury ?Patient has baseline renal insufficiency with creatinine ranging from 0.9-1.43. Patient presented with acute kidney injury with creatinine greater than 4. Started on IV fluid with subsequent monitoring of electrolytes ordered. Suspected 5. B12 deficiency ?Patient is followed by oncology and on B12 replacement therapy 6. Hypothyroidism - Patient is on levothyroxine home dose continued 7. Dyslipidemia -Patient is on statin therapy, continued at home dose 7. Degenerative joint disease ?Patient is on NSAIDs in view of her impaired kidney function, offending medication held 8. COPD ?Aerosol treatments as needed 9. Tobacco dependence - Counseled on cessation, offered nicotine patch for tobacco cravings 10. DVT prophylaxis ?Enoxaparin CODE STATUS; full code Charges/Coding Visit Charges Inpatient E&M: 22274 Init Hosp L3
[2021-05-20 13:04] VITALS: BP 123/72; PULSE 92; RESP 14; TEMP 37.1; O2SAT 98
[2021-05-20 13:50] VITALS: BP 112/45; PULSE 105; RESP 20; TEMP 36.3; O2SAT 100
[2021-05-20] MEDS: Dextrose 50%-Water 25 GM/50 ML DISP.SYRIN IV (16:13)
[2021-05-20 16:31] LABS: Bedside Glucose 147 mg/dL (70-110)
[2021-05-20 17:07] LABS: Glucose 199 mg/dL (74-106)
[2021-05-20 17:56] LABS: Bedside Glucose 124 mg/dL (70-110)
[2021-05-20] MEDS: Dextrose 5%/0.9% NaCl 1,000 ML 150 ML IV (17:56)
[2021-05-20 19:50] VITALS: BP 115/54; PULSE 98; RESP 16; TEMP 36.8; O2SAT 99
[2021-05-20] MEDS: DOXEPIN HCL 50 MG CAPSULE PO (21:18)
[2021-05-20] MEDS: Paroxetine 20 MG Tablet PO (21:18)
[2021-05-20 21:45] LABS: Bedside Glucose 234 mg/dL (70-110)
[2021-05-21] MEDS: Dextrose 5%/0.9% NaCl 1,000 ML 150 ML IV ×4 (00:21→19:46)
[2021-05-21 01:09] VITALS: BP 114/55; PULSE 91; RESP 16; TEMP 36.8; O2SAT 98
[2021-05-21 01:11] LABS: Bedside Glucose 176 mg/dL (70-110)
[2021-05-21] MEDS: Levothyroxine 50 MCG Tablet PO (05:19)
[2021-05-21 05:21] VITALS: BP 121/55; PULSE 85; RESP 16; TEMP 36.1; O2SAT 100
[2021-05-21 06:36] LABS: Bedside Glucose 154 mg/dL (70-110)
--- NOTE | 2021-05-21 07:39 | PCM.PN.HOSP ---
Subjective Subjective She was admitted with acute metabolic encephalopathy secondary to hypoglycemia as well as acute kidney injury. Started on IV fluid and admitted to monitored bed. Patient did experience further hypoglycemic episodes resulting in adjustment of IV fluids. Objective Data Objective Data Vital Signs: Vital Signs Temp Pulse Resp BP Pulse Ox 97.0 F L 85 16 121/55 H 100 05/21/21 05:21 05/21/21 05:21 05/21/21 05:21 05/21/21 05:21 05/21/21 05:21 Oxygen Delivery Method Room Air Weight: 70.6 kg Body Mass Index (BMI) 31.6 Intake & Output: Intake and Output for Last 24 Hours 05/19/21 05/20/21 05/21/21 23:59 23:59 23:59 Intake Total 2450.0 / 2450.0 Balance 2450.0 / 2450.0 Lab / Micro Data Result Diagrams: 05/21/21 08:25 05/21/21 08:25 Labs: Laboratory Results - last 24 hr 05/20/21 09:40: POC Glucose 75 05/20/21 10:13: POC Glucose 82 05/20/21 10:30: WBC 8.5, RBC 3.25 L, Hgb 10.2 L, Hct 32.5 L, MCV 100.0 H, MCH 31.4, MCHC 31.4 L, RDW Std Deviation 53.1 H, RDW Coeff of Autumn 14.4, Plt Count 382, MPV 8.0, Immature Gran % (Auto) 0.900, Neut % (Auto) 81.6 H, Lymph % (Auto) 9.9 L, [place] % (Auto) 7.4, Eos % (Auto) 0.1, Baso % (Auto) 0.1, Absolute Neuts (auto) 6.9, Absolute Lymphs (auto) 0.84, Nucleated RBC % 0 05/20/21 10:30: Sodium 134 L, Potassium 5.4 H, Chloride 107, Carbon Dioxide 18.0 L, Anion Gap 9, BUN 54 H, Creatinine 4.42 H, Estim Creat Clear Calc 10.33, Est GFR (MDRD) Af Amer 13 L, Est GFR (MDRD) Non-Af 11 L, BUN/Creatinine Ratio 12.2, Glucose 121 H, Calcium 8.7, Troponin I High Sens 8 05/20/21 11:13: POC Glucose 128 H 05/20/21 12:24: POC Glucose 103 05/20/21 16:25: POC Glucose 147 H 05/20/21 16:39: Glucose 199 H 05/20/21 17:50: POC Glucose 124 H 05/20/21 21:16: POC Glucose 234 H 05/21/21 01:06: POC Glucose 176 H 05/21/21 05:18: POC Glucose 154 H Physical Exam Narrative GENERAL: cooperative HEENT: Atraumatic; EYES; Anicteric, Normal Conjunctiva NECK; supple, normal thyroid, RESPIRATORY: Diminished to auscultation CARDIOVASCULAR: Regular S1 S2, GI: soft, normoactive bowel sounds, : No Renal angle tenderness; EXTREMITIES: No edema, no clubbing, MUSCULOSKELETAL: no muscle waisting NEURO: Awake; no lateralizing signs. SKIN: No Rash PSYCH; Flat affect Assessment & Plan Assessment/Plan (1) Acute hyperkalemia: (2) Hypoglycemia: (3) Acute renal failure (ARF): PLAN: Patient is a 55-year-old lady brought in with unresponsiveness found to be hypoglycemic. She was also found to have hyperkalemia as well as acute kidney injury admitted to regular nursing floor for further management 1. Acute metabolic encephalopathy ?Secondary to hypoglycemia as a result of sulfonylurea use. Patient will glucose level at the time she was found was 23 resuscitated with D50 and subsequently brought to the emergency department.. Patient has been admitted to regular nursing floor currently being monitored with every 4 Accu-Cheks 2. Acute hypoglycemia ?In a patient with diabetes mellitus type 2 on Metformin as well as sulfonylurea?Glimepiride. Patient diabetic medications held. Resuscitated with D5 admitted to regular nursing floor with every 4 Accu-Cheks ordered -05/21/2021 adjusted patient IV fluids. 3. Diabetes mellitus type 2 ?Patient presented with complications including hypoglycemia management as discussed above 4. Acute kidney injury ?Patient has baseline renal insufficiency with creatinine ranging from 0.9-1.43. Patient presented with acute kidney injury with creatinine greater than 4. Started on IV fluid with subsequent monitoring of electrolytes ordered. Suspected offending medications held ?05/21/2021 patient kidney function remains impaired. Ordered renal ultrasound and consultation placed to nephrology 5. B12 deficiency ?Patient is followed by oncology and on B12 replacement therapy 6. Hypothyroidism - Patient is on levothyroxine home dose continued 7. Dyslipidemia -Patient is on statin therapy, continued at home dose 7. Degenerative joint disease ?Patient is on NSAIDs in view of her impaired kidney function, offending medication held 8. COPD ?Aerosol treatments as needed 9. Tobacco dependence - Counseled on cessation, offered nicotine patch for tobacco cravings 10. DVT prophylaxis ?Enoxaparin CODE STATUS; full code Charges/Coding Visit Charges Inpatient E&M: 99136 Subs Hosp L3
[2021-05-21] MEDS: Atorvastatin Calcium 40 MG Tablet PO (08:25)
[2021-05-21] MEDS: Pantoprazole Sodium 40 MG Tablet PO (08:25)
[2021-05-21] MEDS: Enoxaparin 30 MG/0.3 ML Syringe SC (08:25)
[2021-05-21 08:38] LABS: Hematocrit 28.7 % (37-47); Hemoglobin 9.1 g/dL (12.0-15.0); Mean Corp Hgb Conc 31.7 g/dL (32-36); Mean Corpuscular Hgb 31.8 pg (27.0-32.0); Mean Corpuscular Volume 100.3 fL (81-99); Mean Platelet Vol. 8.1 fl (6.2-12.0); Platelet Count 331 K/mm3 (150-450); RBC Distribution Width CV 14.7 % (11.6-14.6); RBC Distribution Width SD 54.4 fl (35.1-43.9); Red Blood Count 2.86 M/mm3 (4.2-5.4); White Blood Count 4.7 K/mm3 (4.4-11.0)
[2021-05-21 09:24] LABS: Bedside Glucose 18 mg/dL (70-110)
[2021-05-21 09:24] LABS: Bedside Glucose 13 mg/dL (70-110)
[2021-05-21 09:25] LABS: AST(SGOT) 14 U/L (15-37); Alanine Aminotransfer ALT/SGPT 22 U/L (13-56); Albumin, Serum 2.8 g/dL (3.2-5.0); Alkaline Phosphatase 80 U/L (45-117); Anion Gap 3 (5-15); BUN 48 mg/dL (7-18); BUN/Creat Ratio 14.8 RATIO (10-20); Calcium,Total 8.2 mg/dL (8.5-10.1); Chloride 115 mmol/L (98-107); Creatinine, Serum 3.24 mg/dL (0.55-1.02); EST Glomerular Filtration Rate 16 mL/min (>60); Est Glom Filt Rate - Afr Amer 19 mL/min (>60); Estimated Creatinine Clearance 14.09 ml/min; Globulin 2.7 g/dL (2.2-4.2); Glucose 169 mg/dL (74-106); Protein, Total 5.5 g/dL (6.4-8.2); Sodium Level 137 mmol/L (136-145)
[2021-05-21 09:46] LABS: Bedside Glucose 243 mg/dL (70-110)
--- NOTE | 2021-05-21 11:05 | CASEMGMT ---
RN CM Face to Face with patient for initial transition planning/care coordination assessment. RN CM introduced self and role at [facility]. Patient lying in bed, alert and oriented. Patient willing to participate in assessment and is able to answer all questions appropriately. Care providers, pharmacy, and demographics verified. Patient wishes to discharge home, denies need for home health at this time. Patient states she has no further needs or concerns at this time. CM to follow for discharge planning needs that may arise. PCP:Avelino Specialists: vidhya Duran Pharmacy: [facility] Insurance: [employer] Prescription Benefit: yes Living Will/HPOA: none LNOK: Brother in law Living Arrangements: Patient lives with brother in law in a mobile home with 4 steps and railing to enter the home. Patient states she is independent at home. Transportation: self/[facility]ORGE DME/HHC: Patient states she denies DME at home and denies previous HHC. Disposition Plan: Patient to discharge home with family support and follow-up plans in place. Jazmín ETIENNE, RN, CM
[2021-05-21 11:20] VITALS: BP 111/48; PULSE 52; RESP 18; TEMP 36.7; O2SAT 97
--- NOTE | 2021-05-21 11:31 | US_ITS ---
STUDY: RENAL ULTRASOUND - COMPLETE REASON FOR EXAM: Female, 55 years old. CELINE TECHNIQUE: Ultrasound evaluation of the kidneys was performed with real-time and static louis-scale imaging. COMPARISON: None. FINDINGS: RIGHT KIDNEY: Normal location of the right kidney, which is normal in size. The right kidney measures 10.6 cm x 5.3 cm x 4 cm. There is a normal cortex of the right kidney. The renal cortex measures 1.0 cm. There is no right renal mass or cyst. There are no right renal calculi. There is no right hydronephrosis. DISTAL RIGHT URETER: There is non-visualization of the distal right ureter. There is no demonstrated right ureterovesical junction calculus. There is a visualized right ureteral jet. LEFT KIDNEY: Normal location of the left kidney, which is normal in size. The left kidney measures 10.3 cm x 5.4 cm x 4.9 cm. There is a normal cortex of the left kidney. The renal cortex measures 1.0 cm. There is no left renal mass or cyst. There are no left renal calculi. There is no left hydronephrosis. DISTAL LEFT URETER: There is non-visualization of the distal left ureter. There is no demonstrated left ureterovesical junction calculus. There is a visualized left ureteral jet. BLADDER: The distended urinary bladder has a volume of 118 ml. There is a normal wall thickness of the distended urinary bladder. There is no demonstrated mass within the urinary bladder. There are no demonstrated bladder calculi. US/Kidney and Bladder IMPRESSION: Normal ultrasound of the kidneys and urinary bladder. Electronically Signed: Agus Ruelas MD at 14:21 EDT , Service support ,
[2021-05-21 12:51] LABS: Bedside Glucose 308 mg/dL (70-110)
--- NOTE | 2021-05-21 14:31 | PCM.CONS.R ---
Assessment & Plan Assessment/Plan (1) Acute renal failure (ARF): (2) Hypoglycemia: (3) Acute hyperkalemia: (4) Hypertension: PLAN: Patient has hypovolemic acute kidney injury in setting of nausea with vomiting, poor oral intake with concurrent HARRY inhibitor, NSAIDs and antibiotic (Bactrim) use. Likely CELINE is prerenal. Creatinine was 4.42 mg/dL yesterday in the emergency room and today with IV fluids and holding offending medications renal function improved, creatinine 3.24 mg/dL. Potassium is down to 5.0. Patient states she is voiding without any issues. No significant uremic symptoms. There is no acute indication for POND SCALER. Hyperkalemia likely from CELINE, and concurrent HARRY inhibitor and possibly from Bactrim as well. Potassium normal today. Recommend to continue holding lisinopril, NSAID and Bactrim. Strict I&O. Reviewed this with patient. Questions were answered. Renal Ultrasound no hydro, normal US of kidneys/bladder Will obtain UA Blood pressure acceptable, not on any antihypertensives at this time Continue IV fluids Further orders forthcoming as hospitalization evolves HPI Consult Data Date of Consult: 05/21/21 HPI Narrative HPI Narrative: FLORINDA LOPEZ, is a 55 F with past medical history significant for hypertension, hypothyroidism, diabetes mellitus type 2 (per patient report diagnosed at least 2 years ago) who was brought to the emergency room last evening for evaluation of altered mental status/unresponsiveness in her home. Patient was found to have a glucose level of 23. In the emergency room lab work showed a creatinine of 4.42 mg/dL and potassium of 5.4, patient was started on IV fluids and admitted for further evaluation and treatment. We were consulted for acute kidney injury and hyperkalemia. Patient reports she has not been evaluated by a inspector and hand packager in the past. In reviewing past creatinine trends, baseline creatinine looks to be around 1 to 1.3 mg/dL since 2019. Patient reports last week she was started on naproxen and Bactrim for finger pain by her PCP. Reports she was only able to tolerate a few doses of Bactrim as it caused nausea and vomiting; Patient states she was able to tolerate the rest of her medications despite nausea and vomiting. She thinks her last Bactrim dose was on Monday. She denies any [id number] NSAIDs. Patient denies any diarrhea at home. Denies any hematuria or dysuria. [facility] Medical History Abnormal stress test Abrasion Ambulates with cane Arthritis Biliary dyskinesia Blackout Cardiology follow-up encounter Chest pain Chronic anemia Constipation COPD (chronic obstructive pulmonary disease) with emphysema COPD exacerbation CPAP (continuous positive airway pressure) dependence CRF (chronic renal failure) Depression Diabetes Diabetes type 2, controlled Dietary restriction Dyslipidemia Easy bruising Fibroadenoma of left breast Gastric reflux Hemorrhoid High cholesterol History of back problems History of non-ST elevation myocardial infarction (NSTEMI) (01/17/20) History of pain when walking History of stress test Hypertension Hypoglycemia Hypothyroidism Insomnia Left arm numbness Left carotid bruit Low iron Microcalcification of left breast on mammogram Nicotine dependence Right lower lobe pneumonia Segmental and somatic dysfunction of lumbar region Segmental and somatic dysfunction of pelvic region Shortness of breath on exertion Sleep apnea Smoker Syncope Thyroid disease Unstable angina Wears glasses Wears partial dentures Home Medications atorvastatin 40 mg PO DAILY 08/11/14 [History Last Taken 03/29/19] lisinopril 5 mg tablet 2.5 mg PO DAILY 10/24/17 [History Last Taken 02/10/20] metformin 1,000 mg PO BID 03/29/19 [History Last Taken 02/09/20] doxepin 50 mg PO QHS 09/27/19 [History Last Taken Unknown] paroxetine HCl 20 mg PO QHS 12/14/19 [History Last Taken Unknown] levothyroxine 25 mcg tablet 50 mcg PO DAILY tablet 06/17/20 [History Last Taken Unknown] etodolac 500 mg tablet 500 mg PO BID tab 04/08/21 [History Last Taken Unknown] pioglitazone 30 mg tablet 30 mg PO DAILY 04/08/21 [History Last Taken Unknown] cephalexin 500 mg PO Q6 #40 capsule 05/15/21 [Rx Last Taken Unknown] famotidine 40 mg PO DAILY 05/15/21 [History Last Taken Unknown] glimepiride 2 mg PO DAILY 05/15/21 [History Last Taken Unknown] pantoprazole 40 mg PO DAILY 05/15/21 [History Last Taken Unknown] sulfamethoxazole-trimethoprim 1 tab PO BID #20 tablet 05/15/21 [Rx Last Taken Unknown] prednisone 10 mg tablet tablet PO 05/19/21 [History Last Taken Unknown] Allergy/AdvReac Type Severity Reaction Status Date / Time prochlorperazine edisylate Allergy Severe Rash Verified 05/20/21 09:39 [From Compazine] prochlorperazine maleate Allergy Severe Rash Verified 05/20/21 09:39 [From Compazine] Family History Father Myocardial infarction CVA (cerebral vascular accident) Mother Heart disease Seizures Sister Seizures Grandmother Cancer Grandfather Cancer Aunt Breast cancer Surgical History H/O: hysterectomy heart catheterization History of cardiac catheterization History of carpal tunnel surgery of left wrist History of cholecystectomy (01/17/20) History of esophagogastroduodenoscopy (EGD) History of hysterectomy History of left heart catheterization (02/10/20) history stereotactic biopsy left breast (~12/22/17) Hx laparoscopic cholecystectomy Hx of colonoscopy Hx of sinus surgery Social History Smoking Status: Current every day smoker tobacco type: cigarettes second hand exposure: No alcohol intake: never substance use type: does not use caffeine: Yes what type of physical activity do you participate in: walking frequency: daily ROS ROS Narrative As in HPI and past medical history Physical Exam Narrative Alert and oriented x3, no acute distress Oral mucosa is dry, neck soft and supple Lung sounds clear anteriorly and posteriorly, no wheezes rhonchi or rales Heart rate regular, S1-S2 No lower extremity edema noted no rash Lab / Micro Data Result Diagrams: 05/21/21 08:25 05/21/21 08:25 Labs: Laboratory Results - last 24 hr 05/20/21 10:30: Corrected WBC DERRICK CAR OPERATOR, Diff Path Review DERRICK CAR OPERATOR 05/20/21 16:07: POC Glucose 13 L* 05/20/21 16:09: POC Glucose 18 L* 05/20/21 16:25: POC Glucose 147 H 05/20/21 16:39: Glucose 199 H 05/20/21 17:50: POC Glucose 124 H 05/20/21 21:16: POC Glucose 234 H 05/21/21 01:06: POC Glucose 176 H 05/21/21 05:18: POC Glucose 154 H 05/21/21 08:25: WBC 4.7, RBC 2.86 L, Hgb 9.1 L, Hct 28.7 L, MCV 100.3 H, MCH 31.8, MCHC 31.7 L, RDW Std Deviation 54.4 H, RDW Coeff of Autumn 14.7 H, Plt Count 331, MPV 8.1 05/21/21 08:25: Sodium Cancelled, Potassium Cancelled, Chloride Cancelled, Carbon Dioxide Cancelled, Anion Gap Cancelled, BUN Cancelled, Creatinine Cancelled, Estim Creat Clear Calc Cancelled, Est GFR (MDRD) Af Amer Cancelled, Est GFR (MDRD) Non-Af Cancelled, BUN/Creatinine Ratio Cancelled, Glucose Cancelled, Calcium Cancelled, Total Bilirubin Cancelled, AST Cancelled, ALT Cancelled, Alkaline Phosphatase Cancelled, Total Protein Cancelled, Albumin Cancelled, Globulin Cancelled, Albumin/Globulin Ratio Cancelled 05/21/21 08:25: Sodium 137, Potassium 5.0, Chloride 115 H, Carbon Dioxide 19.0 L, Anion Gap 3 L, BUN 48 H, Creatinine 3.24 H, Estim Creat Clear Calc 14.09, Est GFR (MDRD) Af Amer 19 L, Est GFR (MDRD) Non-Af 16 L, BUN/Creatinine Ratio 14.8, Glucose 169 H, Calcium 8.2 L, Total Bilirubin 0.30, AST 14 L, ALT 22, Alkaline Phosphatase 80, Total Protein 5.5 L, Albumin 2.8 L, Globulin 2.7, Albumin/Globulin Ratio 1.0 05/21/21 09:43: POC Glucose 243 H 05/21/21 12:36: POC Glucose 308 H Radiology Impression Renal Ultrasound 05/21/21 11:31 IMPRESSION: Normal ultrasound of the kidneys and urinary bladder. Electronically Signed: Agus Ruelas MD at 14:21 EDT , Service support ,
[2021-05-21] MEDS: 0.9% Saline Lock 10 ML Syringe IV (15:27)
[2021-05-21 15:40] VITALS: BP 115/51; PULSE 54; RESP 18; TEMP 36.7; O2SAT 96
[2021-05-21 17:05] LABS: Iron 197 ug/dL (50-170); Iron Binding Capacity,Total 216 ug/dL (250-450); PERCENT IRON SATURATION 91.2 % (15.0-55.0)
[2021-05-21 17:30] LABS: Bedside Glucose 216 mg/dL (70-110)
[2021-05-21 17:35] LABS: Color, Urine Yellow (Yellow); Glucose, Dipstick Normal (Normal); Ketone-Dipstick Negative (Negative); Leukocyte Esterase-Dipstick 25 /ul (Negative); Nitrite-Dipstick Negative (Negative); Occult Blood-Urine Negative /ul (Negative); Protein-Dipstick Negative (Negative); Urine Bilirubin Dipstick Negative (Negative); Urine Clarity Clear (Clear); Urine Urobilinogen Normal (Normal)
[2021-05-21 18:32] LABS: Vitamin B12 322 pg/mL (211-911)
[2021-05-21 21:57] VITALS: BP 113/58; PULSE 87; RESP 16; TEMP 36.8; O2SAT 97
[2021-05-21] MEDS: Paroxetine 20 MG Tablet PO (22:01)
[2021-05-21] MEDS: DOXEPIN HCL 50 MG CAPSULE PO (22:01)
[2021-05-21 22:05] LABS: Bedside Glucose 240 mg/dL (70-110)
[2021-05-22 01:24] VITALS: BP 102/42; PULSE 80; RESP 14; TEMP 36.8; O2SAT 94
[2021-05-22 01:25] LABS: Bedside Glucose 213 mg/dL (70-110)
[2021-05-22] MEDS: Dextrose 5%/0.9% NaCl 1,000 ML 150 ML IV ×2 (02:14→07:25)
[2021-05-22 05:38] VITALS: BP 110/48; PULSE 75; RESP 16; TEMP 36.6; O2SAT 96
[2021-05-22] MEDS: Levothyroxine 50 MCG Tablet PO (05:43)
[2021-05-22 06:45] LABS: Bedside Glucose 171 mg/dL (70-110)
[2021-05-22 07:26] LABS: Absolute Lymphocyte Count 1.48 X10^3/uL (0.83-4.51); Absolute Neutrophil Count 2.5 X10^3/uL (2.0-7.7); Basophil# 0.04 X10^3/uL; Basophil% 0.8 % (0-1); Eosinophils% 4.1 % (0-5); Hematocrit 27.6 % (37-47); Hemoglobin 8.5 g/dL (12.0-15.0); Lymphocyte # 1.48 X10^3/ul (0.83-4.51); Lymphocyte % 30.5 % (19-41); Mean Corp Hgb Conc 30.8 g/dL (32-36); Mean Corpuscular Hgb 31.7 pg (27.0-32.0); Mean Platelet Vol. 8.6 fl (6.2-12.0); Monocyte# 0.63 X10^3/uL; NRBC Flagged by Analyzer 0 % (0-5); Neutrophil # 2.49 X10^3/uL (2.7-7.7); Neutrophil % 51.2 % (47-70); Platelet Count 326 K/mm3 (150-450); RBC Distribution Width CV 14.7 % (11.6-14.6); RBC Distribution Width SD 55.8 fl (35.1-43.9); Red Blood Count 2.68 M/mm3 (4.2-5.4); White Blood Count 4.9 K/mm3 (4.4-11.0)
[2021-05-22 07:46] LABS: Anion Gap 2 (5-15); BUN 33 mg/dL (7-18); BUN/Creat Ratio 16.4 RATIO (10-20); Chloride 118 mmol/L (98-107); Creatinine, Serum 2.01 mg/dL (0.55-1.02); EST Glomerular Filtration Rate 27 mL/min (>60); Est Glom Filt Rate - Afr Amer 33 mL/min (>60); Estimated Creatinine Clearance 22.72 ml/min; Glucose 173 mg/dL (74-106); Potassium 5.5 mmol/L (3.5-5.1); Sodium Level 140 mmol/L (136-145)
[2021-05-22 09:16] VITALS: BP 125/66; PULSE 70; RESP 18; TEMP 36.7; O2SAT 99
[2021-05-22] MEDS: Enoxaparin 30 MG/0.3 ML Syringe SC (09:18)
[2021-05-22] MEDS: Pantoprazole Sodium 40 MG Tablet PO (09:18)
[2021-05-22] MEDS: Atorvastatin Calcium 40 MG Tablet PO (09:18)
[2021-05-22 11:26] LABS: Bedside Glucose 220 mg/dL (70-110)
--- NOTE | 2021-05-22 11:40 | PCM.DC ---
Discharge Instructions Diet Discharge Diet: Carb Control Diet and - (Maintain consistent oral intake, 3 meals a day and 1-2 snacks) Activity Discharge Activity: Return to Normal Activity Dressing / Incision Call your doctor if you observe: Shortness of breath, Dizziness, Fainting spells and Chest pain Follow Up Care Test Results: Test results from this visit will be discussed in further detail at your follow-up appointment, if applicable. Discharge Plan Admission Admit Date/Time: 05/20/21 12:57 Primary Reason for Your Visit: Hypoglycemia, acute kidney injury Attending Provider: Bill Guy Primary Care Provider: Bret You Chi Consulting Providers: Christiano Canela Discharge Orders/Prescriptions Prescriptions: New glimepiride 1 mg tablet 1 mg PO DAILY Qty: 30 RF: 0 Continued prednisone 10 mg tablet PO RF: 0 atorvastatin 40 MG tablet 40 mg PO DAILY RF: 0 levothyroxine 25 mcg tablet 50 mcg PO DAILY RF: 0 doxepin 100 MG capsule 50 mg PO QHS RF: 0 paroxetine HCl 30 MG tablet 20 mg PO QHS RF: 0 pioglitazone 30 mg tablet 30 mg PO DAILY RF: 0 famotidine 40 mg tablet 40 mg PO DAILY RF: 0 pantoprazole 40 mg tablet,delayed release (DR/EC) 40 mg PO DAILY RF: 0 cephalexin 500 MG capsule 500 mg PO Q6 Qty: 40 RF: 0 Held lisinopril 5 mg tablet 2.5 mg PO DAILY RF: 0 Hold Instructions: Resume on 06/05/21. Hold until nephrology follow-up/repeat labs. Discontinued etodolac 500 mg tablet 500 mg PO BID RF: 0 metformin 1,000 tablet 1,000 mg PO BID RF: 0 glimepiride 2 mg tablet 2 mg PO DAILY RF: 0 sulfamethoxazole-trimethoprim [sulfamethoxazole-trimethoprim] 1 TABLET tablet 1 tab PO BID Qty: 20 RF: 0 Referrals / Follow Up: Christiano Canela MD [STAFF PHYSICIAN] - Within 1 Week Bret You Chi, MD [Primary Care Provider] - In 1 Week Disposition Disposition (needs filled in before D/C Order can be placed): Home, Self Care
--- NOTE | 2021-05-22 11:57 | DS.PCM_ITS ---
Documented by User: Ameena Manning NP, CATTYMAN-C 05/22/21 12:04 Providers Date of Admission: 05/20/21 Date of Discharge: 05/22/21 Primary Care Physician: Dr. Bret You MD Consultations 05/21/21 09:35 Consult: Nephrology Routine Consulting Provider: Christiano Canela Reason for Consult: griselda EMERGENT Consult: No MD Notified: Yes Date Notified: 05/21/21 Time Notified: 10:32 Method of Notification: Answering Service Reason For Visit: ACUTE KIDNEY INJURY HYPERGLYCEMIA Diagnosis Discharge Diagnosis (1) Acute renal failure (ARF): Status: Acute Code(s): N17.9 - Acute kidney failure, unspecified (2) Hypoglycemia: Status: Acute Code(s): E16.2 - Hypoglycemia, unspecified (3) Acute hyperkalemia: Status: Acute Code(s): E87.5 - Hyperkalemia (4) Hypertension: Status: Chronic Code(s): I10 - Essential (primary) hypertension Medications at Discharge Home Medications atorvastatin 40 mg PO DAILY 08/11/14 lisinopril 5 mg tablet 2.5 mg PO DAILY 10/24/17 doxepin 50 mg PO QHS 09/27/19 paroxetine HCl 20 mg PO QHS 12/14/19 levothyroxine 25 mcg tablet 50 mcg PO DAILY tablet 06/17/20 pioglitazone 30 mg tablet 30 mg PO DAILY 04/08/21 cephalexin 500 mg PO Q6 #40 capsule 05/15/21 famotidine 40 mg PO DAILY 05/15/21 pantoprazole 40 mg PO DAILY 05/15/21 prednisone 10 mg tablet tablet PO 05/19/21 glimepiride 1 mg PO DAILY #30 tab 05/22/21 Hospital Course Operations None Procedures None Summary of Care Provided Minutes Spent on Discharge: 35 Hospital Course: Patient is a 55-year-old female admitted 05/20/2021 due to hypoglycemia. 1. Acute metabolic encephalopathy secondary to hypoglycemia and acute kidney injury-encephalopathy resolved following correction of underlying processes. 2. Acute hypoglycemia in the setting of type 2 diabetes mellitus-diabetic medications held during admission. Hypoglycemia resolved. Metformin discontinued at discharge. Glimepiride reduced to 1 mg daily. Continue home pioglitazone regimen. Discussed with patient consistent oral intake including 3 meals per day and 1-2 snacks and Accu-Cheks ACHS. Hemoglobin A1c December 2019 7.2%. Recommend repeat lab by PCP. 3. Acute kidney injury with hyperkalemia on chronic kidney disease stage IIIa-nephrology consulted during admission. Hold nephrotoxic regimen at discharge including lisinopril, NSAIDs. Metformin discontinued. Bactrim discontinued. Follow-up with nephrology and obtain repeat BMP within 1 week. Renal ultrasound normal. 4. Hypertension-stable. Lisinopril on hold. 5. Hyperlipidemia-continue statin. 6. Hypothyroidism-continue Synthroid regimen. 7. B12 deficiency/chronic normocytic anemia-follows with oncology for replacement. 8. Chronic COPD-no exacerbation. 9. Tobacco dependence-encouraged cessation. Patient seen and examined prior to discharge. Physical assessment as noted below. Patient is stable for discharge with follow up recommendations as noted above. This patient was seen by VANESSA Langley under the supervision of Dr. Guy. Weight / BMI Weight Weight: 155 lb 10.342 oz Body Mass Index (BMI) 31.6 ABG / Lab / Microbiology Data Result Diagrams: 05/22/21 06:40 05/22/21 06:40 Laboratory: Laboratory Results - last 24 hr 05/21/21 08:25: Iron 197 H, TIBC 216 L, Iron Saturation 91.2 H 05/21/21 12:36: POC Glucose 308 H 05/21/21 15:35: Urine Color Yellow, Urine Clarity Clear, Urine pH 6.0, Ur Specific [place] 1.010, Urine Protein Negative, Urine Glucose (UA) Normal, Urine Ketones Negative, Urine Occult Blood Negative, Urine Nitrite Negative, Urine Bilirubin Negative, Urine Urobilinogen Normal, Ur Leukocyte Esterase 25 H 05/21/21 17:21: POC Glucose 216 H 05/21/21 17:35: Vitamin B12 322 05/21/21 22:00: POC Glucose 240 H 05/22/21 01:22: POC Glucose 213 H 05/22/21 05:42: POC Glucose 171 H 05/22/21 06:40: WBC 4.9, RBC 2.68 L, Hgb 8.5 L, Hct 27.6 L, MCV 103.0 H, MCH 31.7, MCHC 30.8 L, RDW Std Deviation 55.8 H, RDW Coeff of Autumn 14.7 H, Plt Count 326, MPV 8.6, Immature Gran % (Auto) 0.400, Neut % (Auto) 51.2, Lymph % (Auto) 30.5, [place] % (Auto) 13.0 H, Eos % (Auto) 4.1, Baso % (Auto) 0.8, Absolute Neuts (auto) 2.5, Absolute Lymphs (auto) 1.48, Nucleated RBC % 0 05/22/21 06:40: Sodium 140, Potassium 5.5 H, Chloride 118 H, Carbon Dioxide 20.0 L, Anion Gap 2 L, BUN 33 H, Creatinine 2.01 H, Estim Creat Clear Calc 22.72, Est GFR (MDRD) Af Amer 33 L, Est GFR (MDRD) Non-Af 27 L, BUN/Creatinine Ratio 16.4, Glucose 173 H, Calcium 8.0 L 05/22/21 10:57: POC Glucose 220 H Radiography Diagnostic Testing: Radiology Impression Renal Ultrasound 05/21/21 11:31 IMPRESSION: Normal ultrasound of the kidneys and urinary bladder. Electronically Signed: Agus Ruelas MD at 14:21 EDT , Service support , D/C Instructions Discharge Diet: Carb Control Diet and - (Maintain consistent oral intake, 3 meals a day and 1-2 snacks) Call your doctor if you observe: Shortness of breath, Dizziness, Fainting spells and Chest pain Meaningful Use Info Meaningful Use Diagnoses (Choose all that apply): None applicable Discharge Plan Admission Admit Date/Time: 05/20/21 12:57 Primary Reason for Your Visit: Hypoglycemia, acute kidney injury Attending Provider: Bill Guy Primary Care Provider: Bret You Chi Consulting Providers: Christiano Canela Discharge Orders/Prescriptions Prescriptions: New glimepiride 1 mg tablet 1 mg PO DAILY Qty: 30 RF: 0 Continued prednisone 10 mg tablet PO RF: 0 atorvastatin 40 MG tablet 40 mg PO DAILY RF: 0 levothyroxine 25 mcg tablet 50 mcg PO DAILY RF: 0 doxepin 100 MG capsule 50 mg PO QHS RF: 0 paroxetine HCl 30 MG tablet 20 mg PO QHS RF: 0 pioglitazone 30 mg tablet 30 mg PO DAILY RF: 0 famotidine 40 mg tablet 40 mg PO DAILY RF: 0 pantoprazole 40 mg tablet,delayed release (DR/EC) 40 mg PO DAILY RF: 0 cephalexin 500 MG capsule 500 mg PO Q6 Qty: 40 RF: 0 Held lisinopril 5 mg tablet 2.5 mg PO DAILY RF: 0 Hold Instructions: Resume on 06/05/21. Hold until nephrology follow-up/repeat labs. Discontinued etodolac 500 mg tablet 500 mg PO BID RF: 0 metformin 1,000 tablet 1,000 mg PO BID RF: 0 glimepiride 2 mg tablet 2 mg PO DAILY RF: 0 sulfamethoxazole-trimethoprim [sulfamethoxazole-trimethoprim] 1 TABLET tablet 1 tab PO BID Qty: 20 RF: 0 Referrals / Follow Up: Christiano Canela MD [STAFF PHYSICIAN] - Within 1 Week Bret You Chi, MD [Primary Care Provider] - In 1 Week Disposition Disposition (needs filled in before D/C Order can be placed): Home, Self Care Documented by User: Dr. Bill Guy MD 05/22/21 12:19 Providers Date of Admission: 05/20/21 Reason For Visit: ACUTE KIDNEY INJURY HYPERGLYCEMIA Medications at Discharge Home Medications atorvastatin 40 mg PO DAILY 08/11/14 lisinopril 5 mg tablet 2.5 mg PO DAILY 10/24/17 doxepin 50 mg PO QHS 09/27/19 paroxetine HCl 20 mg PO QHS 12/14/19 levothyroxine 25 mcg tablet 50 mcg PO DAILY tablet 06/17/20 pioglitazone 30 mg tablet 30 mg PO DAILY 04/08/21 cephalexin 500 mg PO Q6 #40 capsule 05/15/21 famotidine 40 mg PO DAILY 05/15/21 pantoprazole 40 mg PO DAILY 05/15/21 prednisone 10 mg tablet tablet PO 05/19/21 glimepiride 1 mg PO DAILY #30 tab 05/22/21 Hospital Course Operations None Summary of Care Provided Hospital Course: This patient was seen in conjunction with DANIA Langley . I have independently interviewed and examined the patient and reviewed pertinent historical, laboratory, and other data. Please refer to VANESSA Langley note for details of this patient's presentation, findings, and recommendations. I have reviewed VANESSA Langley note and concur with documented findings. Patient is a 55-year-old lady brought in with unresponsiveness found to be hy poglycemic. She was also found to have hyperkalemia as well as acute kidney injury admitted to regular nursing floor for further management. An assessment of acute metabolic encephalopathy secondary to hypoglycemia as well as acute kidney injury made admitted to regular nursing floor for subsequent management Hospital course: As documented above ABG / Lab / Microbiology Data Result Diagrams: 05/22/21 06:40 05/22/21 06:40 Discharge Plan Admission Admit Date/Time: 05/20/21 12:57 Primary Reason for Your Visit: Hypoglycemia, acute kidney injury Attending Provider: Bill Guy Primary Care Provider: Bret You Chi Consulting Providers: Christiano Canela Discharge Orders/Prescriptions Prescriptions: New glimepiride 1 mg tablet 1 mg PO DAILY Qty: 30 RF: 0 Continued prednisone 10 mg tablet PO RF: 0 atorvastatin 40 MG tablet 40 mg PO DAILY RF: 0 levothyroxine 25 mcg tablet 50 mcg PO DAILY RF: 0 doxepin 100 MG capsule 50 mg PO QHS RF: 0 paroxetine HCl 30 MG tablet 20 mg PO QHS RF: 0 pioglitazone 30 mg tablet 30 mg PO DAILY RF: 0 famotidine 40 mg tablet 40 mg PO DAILY RF: 0 pantoprazole 40 mg tablet,delayed release (DR/EC) 40 mg PO DAILY RF: 0 cephalexin 500 MG capsule 500 mg PO Q6 Qty: 40 RF: 0 Held lisinopril 5 mg tablet 2.5 mg PO DAILY RF: 0 Hold Instructions: Resume on 06/05/21. Hold until nephrology follow-up/repeat labs. Discontinued etodolac 500 mg tablet 500 mg PO BID RF: 0 metformin 1,000 tablet 1,000 mg PO BID RF: 0 glimepiride 2 mg tablet 2 mg PO DAILY RF: 0 sulfamethoxazole-trimethoprim [sulfamethoxazole-trimethoprim] 1 TABLET tablet 1 tab PO BID Qty: 20 RF: 0 Referrals / Follow Up: Christiano Canela MD [STAFF PHYSICIAN] - Within 1 Week Bret You Chi, MD [Primary Care Provider] - In 1 Week Disposition Disposition (needs filled in before D/C Order can be placed): Home, Self Care Charges/Coding Visit Charges Inpatient E&M: 40581 Disch Hosp Hospital Course Consultations Consultations: Consultations 05/21/21 09:35 Consult: Nephrology Routine Consulting Provider: Christiano Canela Reason for Consult: griselda EMERGENT Consult: No MD Notified: Yes Date Notified: 05/21/21 Time Notified: 10:32 Method of Notification: Answering Service Operations None
--- NOTE | 2021-05-24 15:21 | CASEMGMT ---
SERA VANEGAS Discharge F/U Phone Call LACE: 13 Strata: 3 Discharge date: 05/22/21 Call date: 05/24/21 Call time: [id number] Attempted to reach pt without success and message not left as pt's name not identified on voicemail. SStaten RN CM Admission dx: CELINE, hyperglycemia
== END 2021-05-22 12:36 | disposition home or self-care (01) | DRG 469 ==
LOC: ED 12:48 → PCU 13:10
PROVIDERS: Nurse Practitioner Adult Health; Admitting Provider Internal Medicine; Emergency Provider Emergency Medicine; PCP Family Medicine Geriatric Medicine; Visit Provider Internal Medicine
DX: N17.9 Acute kidney failure, unspecified (principal); E11.649 Type 2 diabetes mellitus with hypoglycemia without coma; E87.5 Hyperkalemia; N18.31 Chronic kidney disease, stage 3a; T38.3X5A Adverse effect of insulin and oral hypoglycemic [antidiabetic] drugs, initial encounter; E11.22 Type 2 diabetes mellitus with diabetic chronic kidney disease; I12.9 Hypertensive chronic kidney disease with stage 1 through stage 4 chronic kidney disease, or unspecified chronic kidney disease; E78.5 Hyperlipidemia, unspecified; E03.9 Hypothyroidism, unspecified; D64.9 Anemia, unspecified; E53.8 Deficiency of other specified B group vitamins; D63.1 Anemia in chronic kidney disease; J44.9 Chronic obstructive pulmonary disease, unspecified; F17.210 Nicotine dependence, cigarettes, uncomplicated; M19.90 Unspecified osteoarthritis, unspecified site; Z79.84 Long term (current) use of oral hypoglycemic drugs; Z79.899 Other long term (current) drug therapy
CPT/HCPCS: 36415; 76770; 80048; 80053; 81002; 82607; 82947; 82962; 83540; 83550; 84484; 85025; 85027; 93005; 99285; 99406; A4216; J2405

== ENCOUNTER → 2021-06-14 09:13 | Outpatient (CLI) | payer MEDICAID, SELFPAY ==
[2021-06-14 12:31] LABS: Absolute Lymphocyte Count 1.16 X10^3/uL (0.83-4.51); Absolute Neutrophil Count 2.9 X10^3/uL (2.0-7.7); Basophil# 0.03 X10^3/uL; Basophil% 0.6 % (0-1); Eosinophil# 0.19 X10^3/uL; Eosinophils% 3.7 % (0-5); Hematocrit 34.2 % (37-47); Hemoglobin 10.8 g/dL (12.0-15.0); Lymphocyte # 1.16 X10^3/ul (0.83-4.51); Lymphocyte % 22.7 % (19-41); Mean Corp Hgb Conc 31.6 g/dL (32-36); Mean Corpuscular Hgb 31.4 pg (27.0-32.0); Mean Corpuscular Volume 99.4 fL (81-99); Mean Platelet Vol. 8.8 fl (6.2-12.0); Monocyte# 0.78 X10^3/uL; Monocyte% 15.3 % (0-10); NRBC Flagged by Analyzer 0 % (0-5); Neutrophil # 2.93 X10^3/uL (2.7-7.7); Neutrophil % 57.5 % (47-70); Platelet Count 316 K/mm3 (150-450); RBC Distribution Width CV 13.8 % (11.6-14.6); RBC Distribution Width SD 50.2 fl (35.1-43.9); Red Blood Count 3.44 M/mm3 (4.2-5.4); White Blood Count 5.1 K/mm3 (4.4-11.0)
[2021-06-14 13:28] LABS: ALB/GLOB Ratio 0.9 RATIO (0.9-2.4); AST(SGOT) 13 U/L (15-37); Alanine Aminotransfer ALT/SGPT 27 U/L (13-56); Albumin, Serum 3.6 g/dL (3.2-5.0); Alkaline Phosphatase 122 U/L (45-117); Anion Gap 13 (5-15); BUN 23 mg/dL (7-18); BUN/Creat Ratio 11.7 RATIO (10-20); Calcium,Total 9.1 mg/dL (8.5-10.1); Chloride 101 mmol/L (98-107); Creatinine, Serum 1.97 mg/dL (0.55-1.02); EST Glomerular Filtration Rate 28 mL/min (>60); Est Glom Filt Rate - Afr Amer 34 mL/min (>60); Globulin 3.8 g/dL (2.2-4.2); Glucose 175 mg/dL (74-106); Potassium 4.1 mmol/L (3.5-5.1); Protein, Total 7.4 g/dL (6.4-8.2); Sodium Level 135 mmol/L (136-145); Thyroid Stim Hormone (TSH) 1.81 uIU/mL (0.358-3.74)
== END ==
PROVIDERS: PCP Family Medicine Geriatric Medicine; Visit Provider Family Medicine Geriatric Medicine
DX: E11.65 Type 2 diabetes mellitus with hyperglycemia (principal); I10 Essential (primary) hypertension
CPT/HCPCS: 36415; 80053; 84443; 85025

== ENCOUNTER 2021-06-17 11:04 | Observation (INO) | payer MEDICAID, SELFPAY ==
[2021-06-17] VITALS (12 sets, daily range): BP systolic 85–112; BP diastolic 40–63; PULSE 69–124; RESP 17–23; TEMP 36.3–36.8; O2SAT 95–99; BMI 30.4; BMI 30.2
--- NOTE | 2021-06-17 11:26 | RAD_ITS ---
STUDY: X-RAY CHEST REASON FOR EXAM: Female, 56 years old. COUGH, SOB TECHNIQUE: Single AP portable view of the chest. COMPARISON: Comparison is made with prior examination dated 09/03/2000. FINDINGS: EKG electrodes are seen. Hyperinflation. The lungs are clear. There is no demonstrated pleural abnormality. Normal size heart. Normal mediastinum and lauryn. Normal visualized pulmonary arteries. Normal visualized aortic arch and descending thoracic aorta. Normal visualized thoracic spine. Healed right rib fracture. There is no demonstrated abnormality of the visualized soft tissue structures of the upper abdomen. RAD/Chest 1 View (Portable) IMPRESSION: Hyperinflation. The lungs are clear. Electronically Signed: Agus Ruelas MD at 12:45 EDT , Service support ,
--- NOTE | 2021-06-17 11:29 | ED.VIS.DYS ---
HPI History of Present Illness Chief Complaint: Shortness of Breath Informant: patient Narrative Narrative: 56-year-old female presents emergency department with shortness of breath. Patient states that 7 days ago she fell ill with a cough. She notes chills diarrhea vomiting and a sore throat. No reported fever. Patient states she saw her primary care physician yesterday received a antibiotic injection and was discharged on the antibiotic. She states that last night she got significantly more short of breath. She notes that she is Covid vaccinated she has a history of COPD and sleep apnea. [facility] Medical History Abnormal stress test Abrasion Ambulates with cane Arthritis Biliary dyskinesia Blackout Cardiology follow-up encounter Chest pain Chronic anemia Constipation COPD (chronic obstructive pulmonary disease) with emphysema COPD exacerbation CPAP (continuous positive airway pressure) dependence CRF (chronic renal failure) Depression Diabetes Diabetes type 2, controlled Dietary restriction Dyslipidemia Easy bruising Fibroadenoma of left breast Gastric reflux Hemorrhoid High cholesterol History of back problems History of non-ST elevation myocardial infarction (NSTEMI) (01/17/20) History of pain when walking History of stress test Hypertension Hypertension Hypoglycemia Hypothyroidism Insomnia Left arm numbness Left carotid bruit Low iron Microcalcification of left breast on mammogram Nicotine dependence Right lower lobe pneumonia Segmental and somatic dysfunction of lumbar region Segmental and somatic dysfunction of pelvic region Shortness of breath on exertion Sleep apnea Smoker Syncope Thyroid disease Unstable angina Wears glasses Wears partial dentures Home Medications atorvastatin 40 mg PO DAILY 08/11/14 [History Last Taken 03/29/19] lisinopril 5 mg tablet 2.5 mg PO DAILY 10/24/17 [History Last Taken 02/10/20] doxepin 50 mg PO QHS 09/27/19 [History Last Taken Unknown] paroxetine HCl 20 mg PO QHS 12/14/19 [History Last Taken Unknown] levothyroxine 25 mcg tablet 50 mcg PO DAILY tablet 06/17/20 [History Last Taken Unknown] pioglitazone 30 mg tablet 30 mg PO DAILY 04/08/21 [History Last Taken Unknown] cephalexin 500 mg PO Q6 #40 capsule 05/15/21 [Rx Last Taken Unknown] famotidine 40 mg PO DAILY 05/15/21 [History Last Taken Unknown] pantoprazole 40 mg PO DAILY 05/15/21 [History Last Taken Unknown] prednisone 10 mg tablet tablet PO 05/19/21 [History Last Taken Unknown] glimepiride 1 mg PO DAILY #30 tab 05/22/21 [Rx Last Taken Unknown] Allergy/AdvReac Type Severity Reaction Status Date / Time prochlorperazine edisylate Allergy Severe Rash Verified 06/17/21 11:06 [From Compazine] prochlorperazine maleate Allergy Severe Rash Verified 06/17/21 11:06 [From Compazine] Family History Father Myocardial infarction CVA (cerebral vascular accident) Mother Heart disease Seizures Sister Seizures Grandmother Cancer Grandfather Cancer Aunt Breast cancer Surgical History H/O: hysterectomy heart catheterization History of cardiac catheterization History of carpal tunnel surgery of left wrist History of cholecystectomy (01/17/20) History of esophagogastroduodenoscopy (EGD) History of hysterectomy History of left heart catheterization (02/10/20) history stereotactic biopsy left breast (~12/22/17) Hx laparoscopic cholecystectomy Hx of colonoscopy Hx of sinus surgery Social History Smoking Status: Current every day smoker tobacco type: cigarettes second hand exposure: No alcohol intake: never substance use type: does not use caffeine: Yes what type of physical activity do you participate in: walking frequency: daily ROS ROS ED Constitutional Constitutional ED: Reports chills; Denies fever(s) or weight loss Eyes Eyes: Denies change in vision or diplopia ENT ENT ED: Reports sore throat; Denies ear pain or rhinorrhea Cardiovascular Cardiovascular: Denies chest pain, orthopnea, palpitations or racing heartbeat Respiratory/Chest Respiratory/Chest: Reports cough, dyspnea and dyspnea on exertion; Denies orthopnea Gastrointestinal Gastrointestinal: Reports diarrhea, nausea and vomiting; Denies abdominal pain Genitourinary Genitourinary ED: Denies dysuria, hematuria or urinary frequency Musculoskeletal Musculoskeletal: Denies arthralgias or myalgias Integumentary Denies abscess or rash Neurologic Neurologic: Denies headache(s) or weakness Psychiatric Psychiatric: Denies anxiety, depression, suicidal ideation or suicidal thoughts Endocrine Endocrinology: Denies polydipsia, polyphagia or polyuria Allergic/Immunologic Allergic/Immunologic ED: Denies mouth swelling, tongue swelling or urticaria EXAM Physical Exam Const Vital Signs: 06/17/21 11:05 06/17/21 11:57 06/17/21 12:45 Temperature 97.4 F L 97.8 F 98.1 F Temperature Source Temporal Oral Oral Pulse Rate 124 H 93 89 Respiratory Rate 18 23 H 20 H Blood Pressure 104/63 102/54 L 97/43 L Blood Pressure Mean 76 70 61 Pulse Ox 99 96 95 Oxygen Delivery Method Room Air Room Air Room Air Positive well nourished and well developed General Appearance ED: well developed HEENT Reports normocephalic, head/scalp atraumatic, TM's clear and moist mucous membranes atraumatic Tympanic Membrane ED: Yes TM's clear Eyes PERRL and EOMs intact bilaterally Neck no lymphadenopathy, supple and no JVD Resp normal respiratory effort and clear to auscultation bilaterally Cardio regular rhythm and no murmurs Rate: tachycardic GI normal to inspection, nondistended, normoactive bowel sounds and non-tender Palpation: soft Back/Spine no CVA tenderness and normal ROM Extremity normal to inspection General Extremety ED: Negative for edema General Extremity: Negative for edema Neuro oriented x3 and CN's II-XII intact bilaterally Sensorium / Orientation: alert Motor Exam: strength 5/5 throughout Psych mental status grossly normal Mood & Affect: Negative for depressed or tearful Skin no rashes or lesions noted and no wounds MDM MDM MDM Narrative Medical decision making narrative: Patient's lactic acid is elevated at 3.7. This is probably multifactorial. She is noted. BUN of 44 with a creatinine of 2.83. Is about one-point higher than it was 3 days ago. White count 5.1. My interpretation of the chest x-ray is no acute process. Patient received a DuoNeb as well as IV fluids. Patient's blood pressure has been slightly lower than what it normally is for her per the patient. Patient does not feel well enough to go home at this point. I will speak with the hospitalist Anika PCR will be obtained Lab Data Attestation: I reviewed the patient's lab results. Labs: Laboratory Results - last 24 hr 06/17/21 06/17/21 06/17/21 11:40 11:40 11:40 WBC 5.1 RBC 3.19 L Hgb 10.4 L Hct 31.3 L MCV 98.1 MCH 32.6 H MCHC 33.2 RDW Std Deviation 48.2 H RDW Coeff of Autumn 13.4 Plt Count 305 MPV 8.3 Immature Gran % (Auto) 0.600 Neut % (Auto) 56.9 Lymph % (Auto) 27.2 Addison % (Auto) 9.2 Eos % (Auto) 5.5 H Baso % (Auto) 0.6 Absolute Neuts (auto) 2.9 Absolute Lymphs (auto) 1.39 Nucleated RBC % 0 Sodium 138 Potassium 4.5 Chloride 107 Carbon Dioxide 20.0 L Anion Gap 11 BUN 44 H Creatinine 2.83 H Estim Creat Clear Calc 15.94 Est GFR (MDRD) Af Amer 22 L Est GFR (MDRD) Non-Af 18 L BUN/Creatinine Ratio 15.5 Glucose 175 H Lactic Acid 3.7 H* Calcium 8.8 Total Bilirubin 0.40 AST 16 ALT 30 Alkaline Phosphatase 120 H Troponin I High Sens 6 Total Protein 7.1 Albumin 3.4 Globulin 3.7 Albumin/Globulin Ratio 0.9 EKG Initial EKG: Attestation: I personally reviewed and interpreted this EKG as follows: Comments: Normal sinus rhythm with a ventricular rate of 89 bpm Discharge Plan Triage Chief Complaint: Shortness of Breath ED Provider: Ashish Bain Dx/Rx/DC Orders Clinical Impression: Gastroenteritis, Acute kidney injury, Bronchitis, Diabetes type 2, controlled Prescriptions: No Action lisinopril 5 mg tablet 2.5 mg PO DAILY RF: 0 Hold Instructions: Resume on 06/05/21. Hold until nephrology follow-up/repeat labs. prednisone 10 mg tablet PO RF: 0 atorvastatin 40 MG tablet 40 mg PO DAILY RF: 0 levothyroxine 25 mcg tablet 50 mcg PO DAILY RF: 0 doxepin 100 MG capsule 50 mg PO QHS RF: 0 paroxetine HCl 30 MG tablet 20 mg PO QHS RF: 0 pioglitazone 30 mg tablet 30 mg PO DAILY RF: 0 famotidine 40 mg tablet 40 mg PO DAILY RF: 0 pantoprazole 40 mg tablet,delayed release (DR/EC) 40 mg PO DAILY RF: 0 cephalexin 500 MG capsule 500 mg PO Q6 Qty: 40 RF: 0 glimepiride 1 mg tablet 1 mg PO DAILY Qty: 30 RF: 0 Primary Care Provider: Bret You Chi Referrals: Bret You Chi, MD [Primary Care Provider] -
[2021-06-17 11:55] LABS: Absolute Lymphocyte Count 1.39 X10^3/uL (0.83-4.51); Absolute Neutrophil Count 2.9 X10^3/uL (2.0-7.7); Basophil# 0.03 X10^3/uL; Basophil% 0.6 % (0-1); Eosinophil# 0.28 X10^3/uL; Eosinophils% 5.5 % (0-5); Hematocrit 31.3 % (37-47); Hemoglobin 10.4 g/dL (12.0-15.0); Lymphocyte # 1.39 X10^3/ul (0.83-4.51); Lymphocyte % 27.2 % (19-41); Mean Corp Hgb Conc 33.2 g/dL (32-36); Mean Corpuscular Hgb 32.6 pg (27.0-32.0); Mean Corpuscular Volume 98.1 fL (81-99); Mean Platelet Vol. 8.3 fl (6.2-12.0); Monocyte# 0.47 X10^3/uL; Monocyte% 9.2 % (0-10); NRBC Flagged by Analyzer 0 % (0-5); Neutrophil # 2.91 X10^3/uL (2.7-7.7); Neutrophil % 56.9 % (47-70); Platelet Count 305 K/mm3 (150-450); RBC Distribution Width CV 13.4 % (11.6-14.6); RBC Distribution Width SD 48.2 fl (35.1-43.9); Red Blood Count 3.19 M/mm3 (4.2-5.4); White Blood Count 5.1 K/mm3 (4.4-11.0)
[2021-06-17 12:09] LABS: ALB/GLOB Ratio 0.9 RATIO (0.9-2.4); AST(SGOT) 16 U/L (15-37); Alanine Aminotransfer ALT/SGPT 30 U/L (13-56); Albumin, Serum 3.4 g/dL (3.2-5.0); Alkaline Phosphatase 120 U/L (45-117); Anion Gap 11 (5-15); BUN 44 mg/dL (7-18); BUN/Creat Ratio 15.5 RATIO (10-20); Calcium,Total 8.8 mg/dL (8.5-10.1); Chloride 107 mmol/L (98-107); Creatinine, Serum 2.83 mg/dL (0.55-1.02); EST Glomerular Filtration Rate 18 mL/min (>60); Est Glom Filt Rate - Afr Amer 22 mL/min (>60); Estimated Creatinine Clearance 15.94 ml/min; Globulin 3.7 g/dL (2.2-4.2); Glucose 175 mg/dL (74-106); Potassium 4.5 mmol/L (3.5-5.1); Protein, Total 7.1 g/dL (6.4-8.2); Sodium Level 138 mmol/L (136-145); Troponin-I HS 6 pg/mL (3.0-54.0)
[2021-06-17 12:15] LABS: Lactic Acid 3.7 mmol/L (0.4-1.9)
[2021-06-17] MEDS: 0.9% Normal Saline 1,000 ML 1000 ML IV (12:27)
--- NOTE | 2021-06-17 13:58 | HP.PCM.HOS_ITS ---
HPI - General General Date of Admission: 06/17/21 HPI Narrative FLORINDA LOPEZ, is a 56 F with an extensive PMH as outlined who presents via the ED on 06/17/2021 with a complaint of shortness of breath. HEr symptoms started one week ago, and says she had asosciated chills, diarrhea, vomiting and sore throat. She saw her PCP Dr You the day before admission; she was given an IM injection of doxycycline and discharged on oral doxycycline. SHe says she still didnt feel well,so she came in to the ED. She has been vaccinated against covid. Vitals in the ED showed blood pressure of 97/43 with pulse rate of 89, respiratory rate of 20 and temperature of 98.1 Fahrenheit. She was saturating at 95% on room air. CBC showed WBC of 5.1, hemoglobin of 10.4 and platelets of 305. Chemistry showed creatinine of 2.83; creatinine was 1.97 just 3 days ago. Lactic acid was 3.7 and sodium was 138. Initial Covid antigen test done was negative and Covid PCR was pending. Chest x-ray per my read showed no acute cardiopulmonary pathology. She has been admitted to be managed for debility due to respiratory tract infection, to rule out Covid. [facility] Medical History Abnormal stress test Abrasion Ambulates with cane Arthritis Biliary dyskinesia Blackout Cardiology follow-up encounter Chest pain Chronic anemia Constipation COPD (chronic obstructive pulmonary disease) with emphysema COPD exacerbation CPAP (continuous positive airway pressure) dependence CRF (chronic renal failure) Depression Diabetes Diabetes type 2, controlled Dietary restriction Dyslipidemia Easy bruising Fibroadenoma of left breast Gastric reflux Hemorrhoid High cholesterol History of back problems History of non-ST elevation myocardial infarction (NSTEMI) (01/17/20) History of pain when walking History of stress test Hypertension Hypertension Hypoglycemia Hypothyroidism Insomnia Left arm numbness Left carotid bruit Low iron Microcalcification of left breast on mammogram Nicotine dependence Right lower lobe pneumonia Segmental and somatic dysfunction of lumbar region Segmental and somatic dysfunction of pelvic region Shortness of breath on exertion Sleep apnea Smoker Syncope Thyroid disease Unstable angina Wears glasses Wears partial dentures Home Medications atorvastatin 40 mg PO DAILY 08/11/14 [History Last Taken 03/29/19] lisinopril 5 mg tablet 2.5 mg PO DAILY 10/24/17 [History Last Taken 02/10/20] doxepin 50 mg PO QHS 09/27/19 [History Last Taken Unknown] paroxetine HCl 20 mg PO QHS 12/14/19 [History Last Taken Unknown] levothyroxine 25 mcg tablet 50 mcg PO DAILY tablet 06/17/20 [History Last Taken Unknown] pioglitazone 30 mg tablet 30 mg PO DAILY 04/08/21 [History Last Taken Unknown] famotidine 40 mg PO DAILY 05/15/21 [History Last Taken Unknown] pantoprazole 40 mg PO DAILY 05/15/21 [History Last Taken Unknown] doxycycline hyclate 100 mg PO BID 06/17/21 [History Last Taken Unknown] naproxen 06/17/21 [History Last Taken Unknown] Allergy/AdvReac Type Severity Reaction Status Date / Time prochlorperazine edisylate Allergy Severe Rash Verified 06/17/21 15:10 [From Compazine] prochlorperazine maleate Allergy Severe Rash Verified 06/17/21 15:10 [From Compazine] Family History Father Myocardial infarction CVA (cerebral vascular accident) Mother Heart disease Seizures Sister Seizures Grandmother Cancer Grandfather Cancer Aunt Breast cancer Surgical History H/O: hysterectomy heart catheterization History of cardiac catheterization History of carpal tunnel surgery of left wrist History of cholecystectomy (01/17/20) History of esophagogastroduodenoscopy (EGD) History of hysterectomy History of left heart catheterization (02/10/20) history stereotactic biopsy left breast (~12/22/17) Hx laparoscopic cholecystectomy Hx of colonoscopy Hx of sinus surgery Social History Smoking Status: Former smoker second hand exposure: No alcohol intake: never substance use type: does not use caffeine: Yes what type of physical activity do you participate in: walking frequency: daily Vital Signs Vital Signs Vital Signs: 06/17/21 11:05 06/17/21 11:57 06/17/21 12:45 Temperature 97.4 F L 97.8 F 98.1 F Temperature Source Temporal Oral Oral Pulse Rate 124 H 93 89 Respiratory Rate 18 23 H 20 H Blood Pressure 104/63 102/54 L 97/43 L Blood Pressure Mean 76 70 61 Pulse Ox 99 96 95 Oxygen Delivery Method Room Air Room Air Room Air Weight Weight: 156 lb Body Mass Index (BMI) 30.4 Physical Exam Const alert, oriented x3 and no apparent distress General Appearance: cooperative HEENT normocephalic, head/scalp atraumatic, hearing grossly normal bilaterally and moist oral mucous membranes Eyes PERRL, EOMs intact bilaterally and conjunctivae normal Neck no lymphadenopathy Resp Resp Narrative: diminished breath sounds bibasally, no wheezes or crackles. On room air Cardio regular rate, regular rhythm, S1 normal heart sound, S2 normal heart sound and no murmurs GI normal to inspection, nondistended, normoactive bowel sounds, soft to palpation, non-tender and non-distended Extremity normal to inspection, full ROM and no clubbing, cyanosis or edema Peripheral Pulses: Yes pulses 2+ throughout Skin no rashes or lesions noted Neuro oriented x3, CN's II-XII intact bilaterally and moves all extremities Sensorium / Orientation: awake and alert Psych affect normal Results Lab / Micro Data Result Diagrams: 06/18/21 07:00 06/18/21 07:00 Labs: Laboratory Results - last 24 hr 06/17/21 11:40: WBC 5.1, RBC 3.19 L, Hgb 10.4 L, Hct 31.3 L, MCV 98.1, MCH 32.6 H, MCHC 33.2, RDW Std Deviation 48.2 H, RDW Coeff of Autumn 13.4, Plt Count 305, MPV 8.3, Immature Gran % (Auto) 0.600, Neut % (Auto) 56.9, Lymph % (Auto) 27.2, [place]ander % (Auto) 9.2, Eos % (Auto) 5.5 H, Baso % (Auto) 0.6, Absolute Neuts (auto) 2.9, Absolute Lymphs (auto) 1.39, Nucleated RBC % 0 06/17/21 11:40: Sodium 138, Potassium 4.5, Chloride 107, Carbon Dioxide 20.0 L, Anion Gap 11, BUN 44 H, Creatinine 2.83 H, Estim Creat Clear Calc 15.94, Est GFR (MDRD) Af Amer 22 L, Est GFR (MDRD) Non-Af 18 L, BUN/Creatinine Ratio 15.5, Glucose 175 H, Calcium 8.8, Total Bilirubin 0.40, AST 16, ALT 30, Alkaline Phosphatase 120 H, Troponin I High Sens 6, Total Protein 7.1, Albumin 3.4, Globulin 3.7, Albumin/Globulin Ratio 0.9 06/17/21 11:40: Lactic Acid 3.7 H* Micro: Microbiology 06/17/21 11:35 Nasal Secretion SARS-CoV-2 Antigen (Rapid) - Final Assessment & Plan Assessment/Plan (1) Acute kidney injury: (2) Bronchitis: PLAN: #Acute upper respiratory infection * admit to med surg with telemetry * hydrate with iVF NS @ 75cc/hr * PO tylenol prn * was started on doxycycline on outpatient basis by her PCP; will continue * breathing treatment with bronchodilators * titrate oxygen to maintain sats >90% * #CELINE: * likely pre-renal, due to dehydration. Creatinine is 2.83 with a baseline of around 1. Hydrate with IVF and trend Cr #Hypothyroidism: on synthroid #Iron deficiency anemia: Hemoglobin is 10.4 which is around her baseline. Will monitor. #Type 2 diabetes mellitus: ISS. Accuchecks ACHS. hold metformin o/a of CELINE. ON pioglitazone. #GERD: on PPI #HYperlipidemia; on statin. #Hypertension: on lisinopril; will hld o/.a of CELINE. Code status: full code * Patient counseled extensively about different types of CODE STATUS including full code, DNR CCA and DNR CCA. Patient elects to be full code. * Total [id number] time 16 minutes. Charges/Coding Visit Charges OBSV E&M: 24740 Initial observation care L2 Procedures Hospitalists Procedures: 50393 Advncd Care Plan 30 Min
[2021-06-17] MEDS: Ipratropium/Albuterol Sulfate 3 ML AMPUL.NEB INHALATION (14:14)
[2021-06-17 15:46] LABS: Reflex Lactate? Y
[2021-06-17] MEDS: 0.9% Normal Saline 1,000 ML 125 ML IV (16:54)
[2021-06-17 16:58] LABS: Lactic Acid 1.5 mmol/L (0.4-1.9)
[2021-06-17 18:00] LABS: Bedside Glucose 97 mg/dL (70-110)
[2021-06-17] MEDS: Glucerna Shake 120 ML LIQUID PO (18:01)
[2021-06-17] MEDS: Doxycycline 100 MG CAPSULE PO (22:50)
[2021-06-17] MEDS: Paroxetine 20 MG Tablet PO (22:50)
[2021-06-17] MEDS: 0.9% Normal Saline 1,000 ML 150 ML IV (22:50)
[2021-06-17] MEDS: Atorvastatin Calcium 40 MG Tablet PO (22:50)
[2021-06-17] MEDS: DOXEPIN HCL 50 MG CAPSULE PO (22:50)
[2021-06-17 23:06] LABS: Bedside Glucose 99 mg/dL (70-110)
[2021-06-18] VITALS (7 sets, daily range): BP systolic 99–123; BP diastolic 53–68; PULSE 71–100; RESP 16–18; TEMP 36.4–36.9; O2SAT 93–98
[2021-06-18] MEDS: 0.9% Normal Saline 1,000 ML 150 ML IV (06:15)
[2021-06-18] MEDS: Levothyroxine 50 MCG Tablet PO (06:15)
[2021-06-18 06:25] LABS: Bedside Glucose 121 mg/dL (70-110)
[2021-06-18 07:39] LABS: Absolute Lymphocyte Count 1.27 X10^3/uL (0.83-4.51); Absolute Neutrophil Count 2.2 X10^3/uL (2.0-7.7); Basophil# 0.02 X10^3/uL; Basophil% 0.5 % (0-1); Eosinophil# 0.18 X10^3/uL; Eosinophils% 4.5 % (0-5); Hematocrit 25.9 % (37-47); Hemoglobin 8.2 g/dL (12.0-15.0); Lymphocyte # 1.27 X10^3/ul (0.83-4.51); Lymphocyte % 31.4 % (19-41); Mean Corp Hgb Conc 31.7 g/dL (32-36); Mean Corpuscular Hgb 31.7 pg (27.0-32.0); Mean Platelet Vol. 8.5 fl (6.2-12.0); Monocyte% 9.9 % (0-10); NRBC Flagged by Analyzer 0 % (0-5); Neutrophil # 2.15 X10^3/uL (2.7-7.7); Neutrophil % 53.2 % (47-70); Platelet Count 284 K/mm3 (150-450); RBC Distribution Width CV 13.7 % (11.6-14.6); RBC Distribution Width SD 50.2 fl (35.1-43.9); Red Blood Count 2.59 M/mm3 (4.2-5.4)
[2021-06-18 08:03] LABS: Anion Gap 7 (5-15); BUN 30 mg/dL (7-18); BUN/Creat Ratio 18.9 RATIO (10-20); Calcium,Total 8.3 mg/dL (8.5-10.1); Chloride 113 mmol/L (98-107); Creatinine, Serum 1.59 mg/dL (0.55-1.02); EST Glomerular Filtration Rate 36 mL/min (>60); Est Glom Filt Rate - Afr Amer 43 mL/min (>60); Estimated Creatinine Clearance 28.38 ml/min; Glucose 131 mg/dL (74-106); Potassium 4.5 mmol/L (3.5-5.1); Sodium Level 141 mmol/L (136-145)
[2021-06-18] MEDS: Doxycycline 100 MG CAPSULE PO (08:12)
[2021-06-18] MEDS: Pioglitazone Hydrochloride 30 MG Tablet PO (09:29)
[2021-06-18] MEDS: Lisinopril 2.5 MG Tablet PO (09:29)
[2021-06-18] MEDS: Pantoprazole Sodium 40 MG Tablet PO (09:30)
--- NOTE | 2021-06-18 11:49 | DS.PCM_ITS ---
Providers Date of Admission: 06/17/21 Primary Care Physician: Dr. Bret You MD Reason For Visit: DEBILLITY RESPIRATORY TRACT INFECTION Diagnosis Discharge Diagnosis (1) Acute kidney injury: Status: Acute Code(s): N17.9 - Acute kidney failure, unspecified (2) Bronchitis: Status: Acute Code(s): J40 - Bronchitis, not specified as acute or chronic Medications at Discharge Home Medications atorvastatin 40 mg PO DAILY 08/11/14 lisinopril 5 mg tablet 2.5 mg PO DAILY 10/24/17 doxepin 50 mg PO QHS 09/27/19 paroxetine HCl 20 mg PO QHS 12/14/19 levothyroxine 25 mcg tablet 50 mcg PO DAILY tablet 06/17/20 pioglitazone 30 mg tablet 30 mg PO DAILY 04/08/21 famotidine 40 mg PO DAILY 05/15/21 pantoprazole 40 mg PO DAILY 05/15/21 doxycycline hyclate 100 mg PO BID 06/17/21 naproxen 06/17/21 Hospital Course Operations None Procedures None Summary of Care Provided Minutes Spent on Discharge: 45 Hospital Course: FLORINDA LOPEZ, is a 56 F with an extensive PMH as outlined who was admitted via the ED on 06/17/2021 with a complaint of shortness of breath. HEr symptoms started one week ago, and says she had asosciated chills, diarrhea, vomiting and sore throat. She saw her PCP Dr You the day before admission; she was given an IM injection of a doxycycline and discharged on oral doxycycline. SHe says she still didnt feel well,so she came in to the ED. She has been vaccinated against covid. Vitals in the ED showed blood pressure of 97/43 with pulse rate of 89, respiratory rate of 20 and temperature of 98.1 Fahrenheit. She was saturating at 95% on room air. CBC showed WBC of 5.1, hemoglobin of 10.4 and platelets of 305. Chemistry showed creatinine of 2.83; creatinine was 1.97 just 3 days ago. Lactic acid was 3.7 and sodium was 138. Initial Covid antigen test done was negative and Covid PCR was pending. Chest x-ray per my read showed no acute cardiopulmonary pathology. She was admitted to be managed for debility due to respiratory tract infection, to rule out Covid. Patient had received her COVID shots as well as the booster. COVID test done was negative. She was hydrated with IVF. Her symptoms had resolved by 06/18/2021 and she felt much better. Of note, respiratory panel was also negative. It must be stated that patient had gotten her covid booster shot on 06/14/2021, and she wondered whether these could have been side effects from it. I explained to her that the myalgia and lethargy could be explained by side effects from the vaccine but the shortness of breath could not be explained by that. Patient remained stable and walking pulse ox showed that she did not qualify for home oxygen. She was discharged home on 06/18/2021 to complete the course of doxycycline PO as prescribed by her PCP. She is to follow-up with her primary care doctor in 1 to 2 weeks. Of note, due to patient's CELINE on CKD during admission, with creatinine being 2.83 on admission and trended down to 1.59, with her baseline from February 2021 being around 1.4, her Metformin was discontinued. She is follow-up with her primary care doctor for adjustment of her diabetes medication as needed and she is to continue on pioglitazone. Patient seen and examined prior to discharge. Had no complaints. Review of systems otherwise negative. Labs and vitals reviewed. Home medication reviewed and reconciled. Physical Exam Const alert, oriented x3 and no apparent distress General Appearance: cooperative and comfortable Exam Limitations: no limitations HEENT normocephalic, head/scalp atraumatic, hearing grossly normal bilaterally and moist oral mucous membranes Eyes PERRL, EOMs intact bilaterally and conjunctivae normal Neck no lymphadenopathy Resp Resp Narrative: diminished breath sounds bibasally, no wheezes or crackles. On room air Cardio regular rate, regular rhythm, S1 normal heart sound, S2 normal heart sound and no murmurs GI normal to inspection, nondistended, normoactive bowel sounds, soft to palpation, non-tender and non-distended Extremity normal to inspection, full ROM and no clubbing, cyanosis or edema Skin no rashes or lesions noted Neuro oriented x3, CN's II-XII intact bilaterally and moves all extremities Sensorium / Orientation: awake and alert Psych affect normal Weight / BMI Weight Weight: 154 lb 8.705 oz Body Mass Index (BMI) 30.2 ABG / Lab / Microbiology Data Result Diagrams: 06/18/21 07:00 06/18/21 07:00 Laboratory: Laboratory Results - last 24 hr 06/17/21 11:40: WBC 5.1, RBC 3.19 L, Hgb 10.4 L, Hct 31.3 L, MCV 98.1, MCH 32.6 H, MCHC 33.2, RDW Std Deviation 48.2 H, RDW Coeff of Autumn 13.4, Plt Count 305, MPV 8.3, Immature Gran % (Auto) 0.600, Neut % (Auto) 56.9, Lymph % (Auto) 27.2, [place]om[place] % (Auto) 9.2, Eos % (Auto) 5.5 H, Baso % (Auto) 0.6, Absolute Neuts (auto) 2.9, Absolute Lymphs (auto) 1.39, Nucleated RBC % 0 06/17/21 11:40: Sodium 138, Potassium 4.5, Chloride 107, Carbon Dioxide 20.0 L, Anion Gap 11, BUN 44 H, Creatinine 2.83 H, Estim Creat Clear Calc 15.94, Est GFR (MDRD) Af Amer 22 L, Est GFR (MDRD) Non-Af 18 L, BUN/Creatinine Ratio 15.5, Glucose 175 H, Calcium 8.8, Total Bilirubin 0.40, AST 16, ALT 30, Alkaline Phosphatase 120 H, Troponin I High Sens 6, Total Protein 7.1, Albumin 3.4, Globulin 3.7, Albumin/Globulin Ratio 0.9 06/17/21 11:40: Lactic Acid 3.7 H* 06/17/21 13:00: COVID-19 (TARI) Not Detected 06/17/21 16:15: Lactic Acid 1.5 06/17/21 16:34: POC Glucose 97 06/17/21 22:45: POC Glucose 99 06/18/21 06:19: POC Glucose 121 H 06/18/21 07:00: WBC 4.0 L, RBC 2.59 L, Hgb 8.2 L, Hct 25.9 L, MCV 100.0 H, MCH 31.7, MCHC 31.7 L, RDW Std Deviation 50.2 H, RDW Coeff of Autumn 13.7, Plt Count 284, MPV 8.5, Immature Gran % (Auto) 0.500, Neut % (Auto) 53.2, Lymph % (Auto) 31.4, [place]om[place] % (Auto) 9.9, Eos % (Auto) 4.5, Baso % (Auto) 0.5, Absolute Neuts (auto) 2.2, Absolute Lymphs (auto) 1.27, Nucleated RBC % 0 06/18/21 07:00: Sodium 141, Potassium 4.5, Chloride 113 H, Carbon Dioxide 21.0, Anion Gap 7, BUN 30 H, Creatinine 1.59 H, Estim Creat Clear Calc 28.38, Est GFR (MDRD) Af Amer 43 L, Est GFR (MDRD) Non-Af 36 L, BUN/Creatinine Ratio 18.9, Glucose 131 H, Calcium 8.3 L Microbiology: Microbiology 06/17/21 11:35 Nasal Secretion SARS-CoV-2 Antigen (Rapid) - Final Radiography Diagnostic Testing: Radiology Impression Chest X-Ray 06/17/21 11:26 IMPRESSION: Hyperinflation. The lungs are clear. Electronically Signed: Agus Ruelas MD at 12:45 EDT , Service support , D/C Instructions Discharge Diet: Low fat / Low cholesterol Discharge Activity: Return to Normal Activity Weight Bearing Status: Weight bearing as tolerated Call your doctor if you observe: Fever of 101 or Higher, Shortness of breath, Dizziness, Swelling in the ankles and Chest pain Meaningful Use Info Meaningful Use Diagnoses (Choose all that apply): None applicable Discharge Plan Admission Admit Date/Time: 06/17/21 14:04 Primary Reason for Your Visit: upper respiratory tract infection Attending Provider: Deborah Mares Primary Care Provider: Bret You Chi Instructions Patient Instructions: Adult Self-Care for Colds, Preventing Common Respiratory ... Discharge Orders/Prescriptions Prescriptions: Continued lisinopril 5 mg tablet 2.5 mg PO DAILY RF: 0 Hold Instructions: Resume on 06/05/21. Hold until nephrology follow-up/repeat labs. atorvastatin 40 MG tablet 40 mg PO DAILY RF: 0 levothyroxine 25 mcg tablet 50 mcg PO DAILY RF: 0 doxepin 100 MG capsule 50 mg PO QHS RF: 0 paroxetine HCl 30 MG tablet 20 mg PO QHS RF: 0 pioglitazone 30 mg tablet 30 mg PO DAILY RF: 0 famotidine 40 mg tablet 40 mg PO DAILY RF: 0 pantoprazole 40 mg tablet,delayed release (DR/EC) 40 mg PO DAILY RF: 0 doxycycline hyclate 100 mg tablet 100 mg PO BID RF: 0 naproxen 500 mg tablet RF: 0 Discontinued metformin 1,000 mg tablet 1,000 mg PO BID RF: 0 Referrals / Follow Up: Bret You Chi, MD [Primary Care Provider] - Within 2 Weeks Disposition Disposition (needs filled in before D/C Order can be placed): Home, Self Care Charges/Coding Visit Charges OBSV E&M: 90160 Observation care discharge
[2021-06-18 12:10] LABS: Bedside Glucose 167 mg/dL (70-110)
== END 2021-06-18 14:02 | disposition home or self-care (01) ==
LOC: ED 12:23 → MS3 14:47
PROVIDERS: Admitting Provider Student in an Organized Health Care Education/Training Program; Emergency Provider Emergency Medicine; PCP Family Medicine Geriatric Medicine; Visit Provider Student in an Organized Health Care Education/Training Program
DX: N17.9 Acute kidney failure, unspecified (principal); G47.30 Sleep apnea, unspecified; M19.90 Unspecified osteoarthritis, unspecified site; E11.22 Type 2 diabetes mellitus with diabetic chronic kidney disease; E78.5 Hyperlipidemia, unspecified; I25.2 Old myocardial infarction; E03.9 Hypothyroidism, unspecified; J44.0 Chronic obstructive pulmonary disease with (acute) lower respiratory infection; I12.9 Hypertensive chronic kidney disease with stage 1 through stage 4 chronic kidney disease, or unspecified chronic kidney disease; M99.05 Segmental and somatic dysfunction of pelvic region; M99.03 Segmental and somatic dysfunction of lumbar region; D50.9 Iron deficiency anemia, unspecified; K21.9 Gastro-esophageal reflux disease without esophagitis; F32.A Depression, unspecified; F17.210 Nicotine dependence, cigarettes, uncomplicated; N18.9 Chronic kidney disease, unspecified; Z79.899 Other long term (current) drug therapy; Z79.890 Hormone replacement therapy; Z79.84 Long term (current) use of oral hypoglycemic drugs
CPT/HCPCS: 36415; 71045; 80048; 80053; 82962; 83605; 84484; 85025; 87426; 87635; 93005; 96360; 96361; 97802; 99218; 99284; J7030; U0005; A4216; G0378; U0003

== ENCOUNTER → 2021-06-24 13:17 | Outpatient (CLI) | payer MEDICAID, SELFPAY ==
--- NOTE | 2021-06-24 13:28 | RAD_ITS ---
STUDY: X-RAY - ABDOMEN/PELVIS REASON FOR EXAM: Female, 56 years old. ABD PAIN TECHNIQUE: AP supine and upright views of the abdomen and pelvis. COMPARISON: None. FINDINGS: Normal visualized lung bases. There is a moderate amount of colonic fecal material. There is no demonstrated free abdominal air. The visualized liver, spleen and kidneys are grossly normal in size and morphology. Normal soft tissue structures. Normal visualized osseous structures. RAD/Abdomen Single View IMPRESSION: Moderate amount of fecal material is seen in the colon Electronically Signed: Agus Ruelas MD at 14:25 EDT , Service support ,
[2021-06-24 16:44] LABS: Absolute Lymphocyte Count 2.04 X10^3/uL (0.83-4.51); Absolute Neutrophil Count 6.4 X10^3/uL (2.0-7.7); Basophil# 0.04 X10^3/uL; Basophil% 0.4 % (0-1); Eosinophil# 0.13 X10^3/uL; Eosinophils% 1.4 % (0-5); Hematocrit 31.6 % (37-47); Hemoglobin 10.4 g/dL (12.0-15.0); Lymphocyte # 2.04 X10^3/ul (0.83-4.51); Lymphocyte % 21.5 % (19-41); Mean Corp Hgb Conc 32.9 g/dL (32-36); Mean Corpuscular Hgb 32.2 pg (27.0-32.0); Mean Corpuscular Volume 97.8 fL (81-99); Mean Platelet Vol. 8.9 fl (6.2-12.0); Monocyte# 0.77 X10^3/uL; Monocyte% 8.1 % (0-10); NRBC Flagged by Analyzer 0 % (0-5); Neutrophil # 6.42 X10^3/uL (2.7-7.7); Neutrophil % 67.9 % (47-70); Platelet Count 448 K/mm3 (150-450); RBC Distribution Width CV 13.2 % (11.6-14.6); RBC Distribution Width SD 46.7 fl (35.1-43.9); Red Blood Count 3.23 M/mm3 (4.2-5.4); White Blood Count 9.5 K/mm3 (4.4-11.0)
[2021-06-24 17:02] LABS: Anion Gap 13 (5-15); BUN 32 mg/dL (7-18); BUN/Creat Ratio 17.3 RATIO (10-20); Calcium,Total 8.7 mg/dL (8.5-10.1); Chloride 105 mmol/L (98-107); Creatinine, Serum 1.85 mg/dL (0.55-1.02); EST Glomerular Filtration Rate 30 mL/min (>60); Est Glom Filt Rate - Afr Amer 36 mL/min (>60); Glucose 117 mg/dL (74-106); Potassium 4.2 mmol/L (3.5-5.1); Sodium Level 136 mmol/L (136-145)
== END ==
PROVIDERS: PCP Family Medicine Geriatric Medicine; Visit Provider Family Medicine Geriatric Medicine
DX: I10 Essential (primary) hypertension (principal); R10.9 Unspecified abdominal pain
CPT/HCPCS: 36415; 74018; 80048; 85025

== ENCOUNTER 2021-09-13 14:14 | Outpatient (CLI) | payer MEDICAID, SELFPAY ==
[2021-09-13 16:42] LABS: Absolute Lymphocyte Count 1.58 X10^3/uL (0.83-4.51); Absolute Neutrophil Count 3.6 X10^3/uL (2.0-7.7); Basophil# 0.05 X10^3/uL; Basophil% 0.8 % (0-1); Eosinophil# 0.29 X10^3/uL; Eosinophils% 4.7 % (0-5); Hematocrit 31.8 % (37-47); Hemoglobin 10.4 g/dL (12.0-15.0); Lymphocyte # 1.58 X10^3/ul (0.83-4.51); Lymphocyte % 25.7 % (19-41); Mean Corp Hgb Conc 32.7 g/dL (32-36); Mean Corpuscular Hgb 32.4 pg (27.0-32.0); Mean Corpuscular Volume 99.1 fL (81-99); Monocyte# 0.62 X10^3/uL; Monocyte% 10.1 % (0-10); NRBC Flagged by Analyzer 0 % (0-5); Neutrophil # 3.59 X10^3/uL (2.7-7.7); Neutrophil % 58.4 % (47-70); Platelet Count 391 K/mm3 (150-450); RBC Distribution Width CV 13.2 % (11.6-14.6); RBC Distribution Width SD 48.4 fl (35.1-43.9); Red Blood Count 3.21 M/mm3 (4.2-5.4); White Blood Count 6.2 K/mm3 (4.4-11.0)
[2021-09-13 17:02] LABS: Microalbumin,Random Urine 13.1 mg/L (NO RANGE EST.)
[2021-09-13 17:03] LABS: ALB/GLOB Ratio 1.3 RATIO (0.9-2.4); AST(SGOT) 17 U/L (15-37); Alanine Aminotransfer ALT/SGPT 31 U/L (13-56); Alkaline Phosphatase 95 U/L (45-117); Anion Gap 8 (5-15); BUN 23 mg/dL (7-18); BUN/Creat Ratio 15.3 RATIO (10-20); Calcium,Total 9.4 mg/dL (8.5-10.1); Chloride 108 mmol/L (98-107); EST Glomerular Filtration Rate 38 mL/min (>60); Est Glom Filt Rate - Afr Amer 46 mL/min (>60); Glucose 117 mg/dL (74-106); Phosphorus 3.3 mg/dL (2.5-4.9); Potassium 4.6 mmol/L (3.5-5.1); Sodium Level 138 mmol/L (136-145); Thyroid Stim Hormone (TSH) 0.56 uIU/mL (0.358-3.74)
== END 2021-09-13 23:59 | disposition short-term general hospital (02) ==
LOC: POLAB3 14:14
PROVIDERS: PCP Family Medicine Geriatric Medicine; Visit Provider Internal Medicine Nephrology
DX: N17.9 Acute kidney failure, unspecified (principal); E11.9 Type 2 diabetes mellitus without complications; I10 Essential (primary) hypertension
CPT/HCPCS: 36415; 80053; 82043; 82570; 84100; 84443; 85025

== ENCOUNTER 2021-10-05 10:13 | Outpatient (CLI) | payer MEDICAID, SELFPAY ==
--- NOTE | 2021-10-05 10:13 | BI_ITS ---
MAMMOGRAPHY - BILATERAL SCREENING REASON FOR EXAM: Female, 56 years old. Routine annual screening examination. PERTINENT HISTORY: Grandmother with breast cancer. History of prior left stereotactic breast biopsy. TECHNIQUE: Digital bilateral breast elaina (3D mammographic acquisition) in the CC and MLO projections. 2-D mediolateral oblique (MLO) and craniocaudad (CC) views of both breasts were obtained. CAD: Full Field Digital Mammography with Computer Added Detection was performed. COMPARISON: Comparison is made with prior study dated 09/29/2020 and 06/20/2019. FINDINGS: Breast Composition: There are scattered areas of fibroglandular density. There are no dominant masses or suspicious calcifications. A tissue clip marker is once again seen in the axillary region of the left No other significant abnormalities are identified. There has been no significant change since the prior study. BI/SCRN MAMM (CAD)W/ELAINA BILAT IMPRESSION: Stable bilateral screening mammogram. Yearly follow-up mammogram recommended. (A) ASSESSMENT CATEGORY: BIRADS Category 2: Benign. A letter regarding these results will be sent to the patient by the facility within 30 days. Approximately 10% of breast cancers are not detected by mammography. A normal mammogram should not delay biopsy of a clinically suspicious abnormality. [id number] Electronically Signed: Agus Ruelas MD at 12:18 EST ,
== END 2021-10-05 23:59 | disposition home or self-care (01) ==
LOC: OPBI 10:13
PROVIDERS: PCP Family Medicine Geriatric Medicine; Referring Provider Internal Medicine Hematology & Oncology; Visit Provider Internal Medicine Hematology & Oncology
DX: Z12.31 Encounter for screening mammogram for malignant neoplasm of breast (principal); Z85.3 Personal history of malignant neoplasm of breast; D51.9 Vitamin B12 deficiency anemia, unspecified; D50.0 Iron deficiency anemia secondary to blood loss (chronic)
CPT/HCPCS: 77063; 77067; 96372; J3420

== ENCOUNTER 2021-10-21 11:59 | Emergency (ER) | payer MEDICAID, SELFPAY ==
[2021-10-21 12:00] VITALS: BP 148/78; PULSE 89; RESP 18; TEMP 36.6; O2SAT 100; BMI 29.2
--- NOTE | 2021-10-21 12:10 | RAD_ITS ---
STUDY: X-RAY CHEST REASON FOR EXAM: Female, 56 years old. Chest pain. TECHNIQUE: Single AP portable view of the chest. COMPARISON: Comparison is made with prior study dated 09/03/2020. FINDINGS: EKG electrodes are seen. Hyperinflation. The lungs are clear. There is no demonstrated pleural abnormality. Normal size heart. Normal mediastinum and lauryn. Normal visualized pulmonary arteries. There is atherosclerotic calcification of the aortic arch with tortuosity. Normal visualized thoracic spine. Healed right rib fractures. There is no demonstrated abnormality of the visualized soft tissue structures of the upper abdomen. RAD/Chest 1 View (Portable) IMPRESSION: Hyperinflation. The lungs are clear. Electronically Signed: Agus Ruelas MD at 13:16 EST ,
--- NOTE | 2021-10-21 12:10 | EKG12_ITS ---
Test Reason : CP Blood Pressure : / mmHG Vent. Rate : 086 BPM Atrial Rate : 086 BPM P-R Int : 162 ms QRS Dur : 072 ms QT Int : 372 ms P-R-T Axes : 065 061 050 degrees QTc Int : 445 ms Normal sinus rhythm Normal ECG Lateral leads Confirmed by ROSEY PEDROZA, ZOYA ([id number]), film editor supervisor TIFFANIE CARDONA ([id number]) on 10/25/2021 11:18:41 AM Referred By: PRADEEP Confirmed By:ZOYA CURRIE MD
[2021-10-21] MEDS: Aspirin 81 MG TAB.CHEW 324 MG PO (12:13)
--- NOTE | 2021-10-21 12:17 | ED.VIS.CHEST ---
HPI History of Present Illness Chief Complaint: Chest Pain Detail of Chief Complaint: Lower central epigastric pain Informant: patient Onset/Context/Timing Onset: Days (Onset 2 days ago at rest) Activity at onset: sudden and rest Timing: Continuous Quality: Positive for Sharp (Sharp like someone is ripping my insides out) Location: - (Subxiphoid epigastric) Current Severity: Mild Maximum Severity: Moderate Worsened By: Nothing Relieved By: Nothing Associated Symptoms: Positive for Dyspnea; Negative for Nausea, Vomiting, Diaphoresis, Cough, Fever, Lightheadedness, Acid Reflux and Palpitations Narrative Narrative: Patient is a 56-year-old woman with multiple risk factors for cardiac disease who presents with a sharp ripping subxiphoid epigastric discomfort that started 2 days ago and is been constant. There is no precipitating, alleviating or exacerbating factors. She reports mild shortness of breath. She stopped smoking 3 weeks ago. She does have history hypertension, diabetes, hypercholesterolemia and hypothyroidism. She also has history of cholecystectomy. She denies black or maroon-colored stool. She denies history of hiatal hernia, reflux or peptic ulcer disease. She denies history of VTE. Denies leg pain, swelling discoloration. She denies orthopnea, PND or dyspnea on exertion compared to baseline. Prior Similar Symptoms: No Recent Illness/Hospitalization: No CVD Risk Factors: Positive for Hypertension, Diabetes, Hypercholesterolemia and Smoking; Negative for Family History 1' </=55 PE Risk Factors: Negative for Recent Travel/Surgery, Recent Immobilization, Prior DVT or PE, Cancer and OCP + Smoking + >/=35 TAD Risk Factors: Positive for Hypertension; Negative for Marfan's Syndrome and Family History [facility] Medical History Abnormal stress test Abrasion Acute kidney injury Ambulates with cane Arthritis Biliary dyskinesia Blackout Cardiology follow-up encounter Chest pain Chronic anemia Constipation COPD (chronic obstructive pulmonary disease) with emphysema COPD exacerbation CPAP (continuous positive airway pressure) dependence CRF (chronic renal failure) Depression Diabetes Diabetes type 2, controlled Dietary restriction Dyslipidemia Easy bruising Fibroadenoma of left breast Gastric reflux Hemorrhoid High cholesterol History of back problems History of non-ST elevation myocardial infarction (NSTEMI) (01/17/20) History of pain when walking History of stress test Hypertension Hypertension Hypoglycemia Hypothyroidism Insomnia Left arm numbness Left carotid bruit Low iron Microcalcification of left breast on mammogram Nicotine dependence Right lower lobe pneumonia Segmental and somatic dysfunction of lumbar region Segmental and somatic dysfunction of pelvic region Shortness of breath on exertion Sleep apnea Smoker Syncope Thyroid disease Unstable angina Wears glasses Wears partial dentures Home Medications atorvastatin 40 mg PO DAILY 08/11/14 [History Last Taken 03/29/19] lisinopril 5 mg tablet 2.5 mg PO DAILY 10/24/17 [History Last Taken 02/10/20] doxepin 50 mg PO QHS 09/27/19 [History Last Taken Unknown] paroxetine HCl 20 mg PO QHS 12/14/19 [History Last Taken Unknown] levothyroxine 25 mcg tablet 50 mcg PO DAILY tablet 06/17/20 [History Last Taken Unknown] pioglitazone 30 mg tablet 30 mg PO DAILY 04/08/21 [History Last Taken Unknown] famotidine 40 mg PO DAILY 05/15/21 [History Last Taken Unknown] pantoprazole 40 mg PO DAILY 05/15/21 [History Last Taken Unknown] metformin 500 mg PO BID 10/05/21 [History Last Taken Unknown] meloxicam 15 mg tablet 15 mg PO DAILY #14 tab 10/13/21 [Rx Last Taken Unknown] Allergy/AdvReac Type Severity Reaction Status Date / Time prochlorperazine edisylate Allergy Severe Rash Verified 10/21/21 12:03 [From Compazine] prochlorperazine maleate Allergy Severe Rash Verified 10/21/21 12:03 [From Compazine] Family History Father Myocardial infarction CVA (cerebral vascular accident) Mother Heart disease Seizures Sister Seizures Grandmother Cancer Grandfather Cancer Aunt Breast cancer Surgical History H/O: hysterectomy heart catheterization History of cardiac catheterization History of carpal tunnel surgery of left wrist History of cholecystectomy (01/17/20) History of esophagogastroduodenoscopy (EGD) History of hysterectomy History of left heart catheterization (02/10/20) history stereotactic biopsy left breast (~12/22/17) Hx laparoscopic cholecystectomy Hx of colonoscopy Hx of sinus surgery Social History (Updated 10/21/21 @ 12:[address] David Badillo MD) household members: none Smoking Status: Former smoker second hand exposure: No alcohol intake: never substance use type: does not use caffeine: Yes what type of physical activity do you participate in: walking frequency: daily ROS ROS ED Constitutional Constitutional ED: Denies chills, fever(s), subjective, sweats or weight loss Eyes Eyes: Denies blurry vision, change in vision or diplopia ENT ENT ED: Denies ear pain, rhinorrhea or sore throat Cardiovascular Cardiovascular: Reports as per HPI; Denies orthopnea or paroxysmal nocturnal dyspnea Respiratory/Chest Respiratory/Chest: Reports dyspnea; Denies cough, dyspnea on exertion, orthopnea, paroxysmal nocturnal dyspnea or sputum Gastrointestinal Gastrointestinal: Denies abdominal pain, constipation, diarrhea, nausea or vomiting Genitourinary Genitourinary ED: Denies dysuria, hematuria or urinary frequency Musculoskeletal Musculoskeletal: Reports back pain; Denies arthralgias, myalgias or neck pain Integumentary Denies abscess, Abrasions or rash Neurologic Neurologic: Denies headache(s), paresthesias or weakness Endocrine Endocrinology: Denies polydipsia, polyphagia or polyuria Hematologic/Lymphatic Hematologic/Lymphatic: Denies easy bleeding or easy bruising EXAM Physical Exam Const Vital Signs: 10/21/21 12:00 10/21/21 13:00 Temperature 97.9 F Temperature Source Temporal Pulse Rate 89 83 Respiratory Rate 18 16 Blood Pressure 148/78 H 119/56 L Blood Pressure Mean 101 77 Pulse Ox 100 98 Oxygen Delivery Method Room Air Room Air Positive well nourished and well developed General Appearance ED: well developed and NAD; Negative for pallor HEENT Reports TM's clear and dry mucous membranes normocephalic and atraumatic Tympanic Membrane ED: Yes TM's clear Mouth ED: Yes dry mucous membranes Mouth: dry mucous membranes Eyes PERRL and EOMs intact bilaterally General Eye ED: Negative for pale conjunctiva or scleral icterus Neck no lymphadenopathy, supple and no JVD Chest Wall palpation of chest normal Resp normal respiratory effort Effort and Inspection: respiratory distress Cardio regular rate, regular rhythm, S1 normal heart sound, S2 normal heart sound and no murmurs GI normal to inspection, nondistended, normoactive bowel sounds, soft to palpation, non-tender and non-distended Back/Spine no CVA tenderness and no thoracic nor lumbar tenderness Cervical Spine: Negative for cervical spine tenderness Extremity normal to inspection Extremity Narrative: There is no asymmetry, swelling, discoloration, leg vein distention, palpable cords or tenderness along the distribution of the deep venous system. General Extremety ED: Negative for edema, pulses abnormal or tenderness General Extremity: Negative for edema or pulses abnormal Neuro oriented x3, CN's II-XII intact bilaterally and no sensory deficits noted Sensorium / Orientation: awake and alert Psych Mood & Affect: depressed Skin no rashes or lesions noted and no wounds General Skin Exam: Negative for jaundice or pallor Heart Score History: Slightly/Non-Suspicious ECG: Normal Age: >45 - <65 years Risk Factors: >/= 3 Risk Factors or History of CAD Score: 3 MDM MDM MDM Narrative Medical decision making narrative: Patient with very atypical presentation of chest pain. Since she is middle-aged diabetic and smoker as well as other risk factors and may present with atypical presentation EKG, chest x-ray troponin appropriate labs were ordered. Need to evaluate for cardiac versus noncardiac etiology. Patient states she had no improvement after GI cocktail. Patient was informed the cause of her pain is unknown. She was instructed to follow-up with her primary care physician. With greater than 48 hours of continuous pain troponin less than 8 cardiac etiology has been ruled out. Lab Data Attestation: I reviewed the patient's lab results. Lab results narrative: With greater than 48 hours of pain and troponin less than 8 patient chest pain is noncardiac. Will give patient Maalox and Viscous Lidocaine to see if this helps her discomfort. Creatinine is elevated. Patient has a baseline elevated creatinine. Based on prior labs she has chronic kidney disease stage IIIa Labs: Laboratory Results - last 24 hr 10/21/21 10/21/21 12:05 12:05 WBC 7.5 RBC 3.17 L Hgb 10.1 L Hct 31.8 L MCV 100.3 H MCH 31.9 MCHC 31.8 L RDW Std Deviation 49.2 H RDW Coeff of Autumn 13.2 Plt Count 393 MPV 8.7 Immature Gran % (Auto) 0.800 Neut % (Auto) 68.4 Lymph % (Auto) 16.3 L [place] % (Auto) 9.8 Eos % (Auto) 4.4 Baso % (Auto) 0.3 Absolute Neuts (auto) 5.2 Absolute Lymphs (auto) 1.23 Nucleated RBC % 0 Sodium 139 Potassium 4.5 Chloride 109 H Carbon Dioxide 25.0 Anion Gap 5 BUN 26 H Creatinine 1.72 H Estim Creat Clear Calc 26.23 Est GFR (MDRD) Af Amer 39 L Est GFR (MDRD) Non-Af 33 L BUN/Creatinine Ratio 15.1 Glucose 162 H Calcium 8.9 Troponin I High Sens 5 Radiography Chest X-Ray - ED: 1 View (Single view portable chest x-ray was interpreted by me as negative for any acute pathology. There is evidence of a prior right rib fracture. Cardiac silhouette and size normal. There is no evidence of hiatal hernia. Lung parenchyma review reveals chronic changes. There is no pneumothorax, hemot) EKG Initial EKG: Attestation: I personally reviewed and interpreted this EKG as follows: Interpretation: Sinus Rhythm (Ventricular rate is 86. EKG is normal. OR interval is 160 ms. QRS duration 72 ms. QT duration 372 ms and the axis is normal.) Discharge Plan Triage Chief Complaint: Chest Pain ED Provider: David Badillo Dx/Rx/DC Orders Clinical Impression: Chest pain of unknown etiology, Dyslipidemia, History of chronic hypertension Instructions: ED Chest Pain, Uncertain Cause Prescriptions: No Action lisinopril 5 mg tablet 2.5 mg PO DAILY RF: 0 Hold Instructions: Resume on 06/05/21. Hold until nephrology follow-up/repeat labs. meloxicam [Mobic] 15 mg tablet 15 mg PO DAILY Qty: 14 RF: 0 atorvastatin 40 MG tablet 40 mg PO DAILY RF: 0 levothyroxine 25 mcg tablet 50 mcg PO DAILY RF: 0 doxepin 100 MG capsule 50 mg PO QHS RF: 0 paroxetine HCl 30 MG tablet 20 mg PO QHS RF: 0 pioglitazone 30 mg tablet 30 mg PO DAILY RF: 0 metformin 500 mg Tablet 500 mg PO BID RF: 0 famotidine 40 mg tablet 40 mg PO DAILY RF: 0 pantoprazole 40 mg tablet,delayed release (DR/EC) 40 mg PO DAILY RF: 0 Primary Care Provider: Bret You Chi Referrals: Bret You Chi, MD [Primary Care Provider] - 3-5 Days if not improving Disposition Disposition: Home, Self Care
[2021-10-21 12:25] LABS: Absolute Lymphocyte Count 1.23 X10^3/uL (0.83-4.51); Absolute Neutrophil Count 5.2 X10^3/uL (2.0-7.7); Basophil# 0.02 X10^3/uL; Basophil% 0.3 % (0-1); Eosinophil# 0.33 X10^3/uL; Eosinophils% 4.4 % (0-5); Hematocrit 31.8 % (37-47); Hemoglobin 10.1 g/dL (12.0-15.0); Lymphocyte # 1.23 X10^3/ul (0.83-4.51); Lymphocyte % 16.3 % (19-41); Mean Corp Hgb Conc 31.8 g/dL (32-36); Mean Corpuscular Hgb 31.9 pg (27.0-32.0); Mean Corpuscular Volume 100.3 fL (81-99); Mean Platelet Vol. 8.7 fl (6.2-12.0); Monocyte# 0.74 X10^3/uL; Monocyte% 9.8 % (0-10); NRBC Flagged by Analyzer 0 % (0-5); Neutrophil # 5.16 X10^3/uL (2.7-7.7); Neutrophil % 68.4 % (47-70); Platelet Count 393 K/mm3 (150-450); RBC Distribution Width CV 13.2 % (11.6-14.6); RBC Distribution Width SD 49.2 fl (35.1-43.9); Red Blood Count 3.17 M/mm3 (4.2-5.4); White Blood Count 7.5 K/mm3 (4.4-11.0)
[2021-10-21 12:31] LABS: Anion Gap 5 (5-15); BUN 26 mg/dL (7-18); BUN/Creat Ratio 15.1 RATIO (10-20); Calcium,Total 8.9 mg/dL (8.5-10.1); Chloride 109 mmol/L (98-107); Creatinine, Serum 1.72 mg/dL (0.55-1.02); EST Glomerular Filtration Rate 33 mL/min (>60); Est Glom Filt Rate - Afr Amer 39 mL/min (>60); Estimated Creatinine Clearance 26.23 ml/min; Glucose 162 mg/dL (74-106); Potassium 4.5 mmol/L (3.5-5.1); Sodium Level 139 mmol/L (136-145); Troponin-I HS 5 pg/mL (3.0-54.0)
[2021-10-21 13:00] VITALS: BP 119/56; PULSE 83; RESP 16; O2SAT 98
[2021-10-21] MEDS: Mag Hydrox/Al Hydrox/Simeth 30 ML UDC PO (13:00)
[2021-10-21 13:18] VITALS: BP 119/56; PULSE 86; RESP 18; TEMP 36.6; O2SAT 99
== END 2021-10-21 13:24 | disposition home or self-care (01) ==
PROVIDERS: Emergency Provider Emergency Medicine; PCP Family Medicine Geriatric Medicine; Visit Provider Emergency Medicine
DX: R07.89 Other chest pain (principal); J44.9 Chronic obstructive pulmonary disease, unspecified; E11.22 Type 2 diabetes mellitus with diabetic chronic kidney disease; E78.5 Hyperlipidemia, unspecified; E03.9 Hypothyroidism, unspecified; N18.9 Chronic kidney disease, unspecified; I12.9 Hypertensive chronic kidney disease with stage 1 through stage 4 chronic kidney disease, or unspecified chronic kidney disease; I25.2 Old myocardial infarction; E78.00 Pure hypercholesterolemia, unspecified; Z79.84 Long term (current) use of oral hypoglycemic drugs; Z79.899 Other long term (current) drug therapy; Z87.891 Personal history of nicotine dependence
CPT/HCPCS: 71045; 80048; 84484; 85025; 93005; 99285; A4216

== ENCOUNTER 2021-11-15 11:01 | Emergency (ER) | payer MEDICAID, SELFPAY ==
[2021-11-15 11:02] VITALS: BP 128/64; PULSE 123; RESP 18; TEMP 36.6; O2SAT 100; BMI 28.3
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
[2021-11-15] MEDS: HYDROcodone Bitartrate/Apap 5/325 Tablet PO (12:26)
== END 2021-11-15 12:32 | disposition home or self-care (01) ==
PROVIDERS: Emergency Provider Emergency Medicine; PCP Family Medicine Geriatric Medicine; Visit Provider Emergency Medicine
DX: S20.20XA Contusion of thorax, unspecified, initial encounter (principal); J44.9 Chronic obstructive pulmonary disease, unspecified; E11.22 Type 2 diabetes mellitus with diabetic chronic kidney disease; I12.9 Hypertensive chronic kidney disease with stage 1 through stage 4 chronic kidney disease, or unspecified chronic kidney disease; Z87.891 Personal history of nicotine dependence; E78.5 Hyperlipidemia, unspecified; E78.00 Pure hypercholesterolemia, unspecified; N18.9 Chronic kidney disease, unspecified; V43.62XA Car passenger injured in collision with other type car in traffic accident, initial encounter; Y93.9 Activity, unspecified; Y92.9 Unspecified place or not applicable; Z87.19 Personal history of other diseases of the digestive system; M19.90 Unspecified osteoarthritis, unspecified site; F32.A Depression, unspecified; K21.9 Gastro-esophageal reflux disease without esophagitis; I25.2 Old myocardial infarction; E03.9 Hypothyroidism, unspecified; Z87.01 Personal history of pneumonia (recurrent); Z79.899 Other long term (current) drug therapy; G47.30 Sleep apnea, unspecified; Z79.84 Long term (current) use of oral hypoglycemic drugs; Z90.49 Acquired absence of other specified parts of digestive tract
CPT/HCPCS: 71046; 99284

== ENCOUNTER 2021-11-23 13:23 | Outpatient (CLI) | payer MEDICAID, SELFPAY ==
--- NOTE | 2021-11-23 13:25 | CT_ITS ---
STUDY: LOW DOSE CT LUNG CANCER SCREENING REASON FOR EXAM: Female, 56 years old. Lung cancer screening -- 60 pk yr hx;former smoker;asymptomatic RADIATION DOSAGE (If Supplied By Facility): CTDIvol = ( 1.59 ) mGy, DLP = ( 44.86 ) mGycm TECHNIQUE: No contrast was administered. Low dose technique was utilized (average mAS-38 and kVp 120). 1.25 mm axial source images with a slice interval of 1.25-mm were reconstructed in lung windows. 2.5 mm axial source images with a slice interval of 2.5-mm were reconstructed in lung windows. 5.0 mm axial source images with a slice interval of 5.0-mm were reconstructed in soft tissue windows. Nodule measured using lung windows on PACS and/or independent workstation with automated measurement of minimum and maximum diameter. Nodule measurement reported as average diameter rounded to the nearest whole number. Growth is defined as an increase ins size of greater than 1.5 mm. COMPARISON: Comparison is made with prior examination dated 09/29/2020. NODULES: No suspicious nodules are seen. Emphysema: Minimal increased linear markings in the right middle lobe and lingular segment of the left upper lobe suggestive of linear scarring. Endobronchial lesion: None Aorta: Atherosclerotic calcification of the aortic arch. Coronary arteries: Unremarkable Heart: Unremarkable Pulmonary artery: Unremarkable Mediastinal nodes: Small mediastinal lymph nodes. Other chest and abdominal findings: CT/Low Dose CT Lung Screening IMPRESSION: Lung-RADS category 2 - Continue annual screening with LDCT in 12 months. IMPORTANT NOTES FOR USE: ACR Lung-RADS Version 1.1 Assessment Categories Release Date: 2018 Category: Coded 0-4 bases on nodule(s) with highest degree of suspicion. Negative screen is defined as categories 1 and 2; a positive screen is defined as categories 3 and 4. Category 3 and 4A nodules that are unchanged on interval CT should be coded as category 2, and individuals returned to screening in 12 months. Category 4X: Category 3 or 4 nodules with additional imaging findings that increase the suspicion of lung cancer, such as spiculation, GGN that doubles in size in 1 year, enlarged lymph notes, etc. Category Modifiers: S (significant finding unrelated to lung cancer) Electronically Signed: Augs Ruelas MD at 14:23 EDT ,
== END 2021-11-23 23:59 | disposition home or self-care (01) ==
LOC: CT 13:24
PROVIDERS: PCP Family Medicine Geriatric Medicine; Referring Provider Nurse Practitioner Family; Visit Provider Nurse Practitioner Family
DX: Z87.891 Personal history of nicotine dependence (principal); Z12.2 Encounter for screening for malignant neoplasm of respiratory organs
CPT/HCPCS: 71271

== ENCOUNTER 2021-12-07 11:18 | Outpatient (CLI) | payer MEDICAID, SELFPAY ==
--- NOTE | 2021-12-07 11:35 | RAD_ITS ---
STUDY: X-RAY - CERVICAL SPINE REASON FOR EXAM: Female, 56 years old. NECK PAIN TECHNIQUE: XR Spine Cervical 2 or 3 Views COMPARISON: None FINDINGS: Normal anterior atlantoaxial articulation. The odontoid process is obscured by the overlying hard palate on the open mouth view. Therefore, it is not fully evaluated by plain film. There is straightening of the normal cervical lordosis. There is multi-level endplate spondylosis. There is multi-level degenerative disc disease with multilevel disc space narrowing. There is multi-level osseous foraminal stenosis. The soft tissue structures are unremarkable. RAD/Cerv Spine 2 or 3 Views IMPRESSION: There are degenerative changes as noted above. The odontoid process is obscured by the overlying hard palate on the open mouth view. Therefore, it is not fully evaluated by plain film. Electronically Signed: Fausto Rhodes MD at 18:20 EDT ,
== END 2021-12-07 23:59 | disposition home or self-care (01) ==
PROVIDERS: PCP Family Medicine Geriatric Medicine; Referring Provider Family Medicine Geriatric Medicine; Visit Provider Family Medicine Geriatric Medicine
DX: M54.2 Cervicalgia (principal)
CPT/HCPCS: 72040

== ENCOUNTER 2021-12-14 10:14 | Outpatient (CLI) | payer MEDICAID, SELFPAY ==
[2021-12-14 10:49] LABS: Absolute Lymphocyte Count 2.48 X10^3/uL (0.83-4.51); Absolute Neutrophil Count 5.1 X10^3/uL (2.0-7.7); Basophil# 0.03 X10^3/uL; Basophil% 0.3 % (0-1); Eosinophil# 0.27 X10^3/uL; Hematocrit 27.8 % (37-47); Hemoglobin 9.2 g/dL (12.0-15.0); Lymphocyte # 2.48 X10^3/ul (0.83-4.51); Mean Corp Hgb Conc 33.1 g/dL (32-36); Mean Corpuscular Hgb 32.3 pg (27.0-32.0); Mean Corpuscular Volume 97.5 fL (81-99); Mean Platelet Vol. 8.9 fl (6.2-12.0); Monocyte# 0.89 X10^3/uL; NRBC Flagged by Analyzer 0 % (0-5); Neutrophil # 5.08 X10^3/uL (2.7-7.7); Neutrophil % 57.5 % (47-70); POSITIVE COUNT YES; RBC Distribution Width CV 13.8 % (11.6-14.6); RBC Distribution Width SD 49.4 fl (35.1-43.9); Red Blood Count 2.85 M/mm3 (4.2-5.4); White Blood Count 8.9 K/mm3 (4.4-11.0)
[2021-12-14 11:11] LABS: ALB/GLOB Ratio 1.1 RATIO (0.9-2.4); AST(SGOT) 15 U/L (15-37); Alanine Aminotransfer ALT/SGPT 26 U/L (13-56); Albumin, Serum 3.1 g/dL (3.2-5.0); Alkaline Phosphatase 78 U/L (45-117); Anion Gap 6 (5-15); BUN 26 mg/dL (7-18); BUN/Creat Ratio 20.8 RATIO (10-20); Calcium,Total 8.1 mg/dL (8.5-10.1); Chloride 109 mmol/L (98-107); Creatinine, Serum 1.25 mg/dL (0.55-1.02); EST Glomerular Filtration Rate 47 mL/min (>60); Est Glom Filt Rate - Afr Amer 57 mL/min (>60); Ferritin 131 ng/mL (8-252); Globulin 2.7 g/dL (2.2-4.2); Glucose 109 mg/dL (74-106); Iron 83 ug/dL (50-170); Iron Binding Capacity,Total 338 ug/dL (250-450); PERCENT IRON SATURATION 24.6 % (15.0-55.0); Potassium 4.4 mmol/L (3.5-5.1); Protein, Total 5.8 g/dL (6.4-8.2); Sodium Level 139 mmol/L (136-145); Thyroid Stim Hormone (TSH) 1.82 uIU/mL (0.358-3.74)
[2021-12-14 11:26] LABS: Differential Indicated SCAN CRITERIA MET
[2021-12-14 11:30] LABS: Platelet Estimate SLT INC (ADEQ)
== END 2021-12-14 23:59 | disposition home or self-care (01) ==
LOC: POLAB3 10:25
PROVIDERS: Internal Medicine Hematology & Oncology; PCP Family Medicine Geriatric Medicine; Visit Provider Family Medicine Geriatric Medicine
DX: E11.9 Type 2 diabetes mellitus without complications (principal); I10 Essential (primary) hypertension
CPT/HCPCS: 36415; 80053; 82728; 83540; 83550; 84443; 85025

== ENCOUNTER 2022-02-18 13:14 | Observation (INO) | payer MEDICAID, SELFPAY ==
[2022-02-18] VITALS (8 sets, daily range): BP systolic 89–111; BP diastolic 39–50; PULSE 69–96; RESP 13–18; TEMP 36.3–36.9; O2SAT 97–99; BMI 27.3; BMI 30.7
--- NOTE | 2022-02-18 13:58 | RAD_ITS ---
STUDY: X-RAY CHEST REASON FOR EXAM: Female, 56 years old. Technologist Notes PT WITH N/V/D FOR 4 DAYS. STATES HAS ALSO HAD A HEADACHE, CHILLS, CP, SOB. STATES DIZZINESS Cough TECHNIQUE: XR Chest 1 View COMPARISON: 11.15.21 FINDINGS: Healed right rib fracture. Normal size heart. Normal mediastinum and lauryn. Normal visualized pulmonary arteries. There is atherosclerotic calcification of the aortic arch with tortuosity. There are diffuse degenerative changes of the visualized thoracic spine. There is degenerative osteoarthritis of the bilateral shoulders. There is no demonstrated abnormality of the visualized soft tissue structures of the upper abdomen. RAD/Chest 1 View (Portable) IMPRESSION: There are no acute findings. Electronically Signed: Fausto Rhodes MD at 15:07 EDT ,
[2022-02-18] MEDS: 0.9% Normal Saline 1,000 ML 1000 ML IV (14:18)
[2022-02-18] MEDS: Loperamide 2 MG Capsule 4 MG PO (14:22)
[2022-02-18] MEDS: Ondansetron 4 MG/2 ML Vial IV (14:22)
[2022-02-18 14:28] LABS: Absolute Lymphocyte Count 0.75 X10^3/uL (0.83-4.51); Absolute Neutrophil Count 6.7 X10^3/uL (2.0-7.7); Basophil# 0.02 X10^3/uL; Basophil% 0.2 % (0-1); Eosinophil# 0.13 X10^3/uL; Eosinophils% 1.5 % (0-5); Hematocrit 34.9 % (37-47); Hemoglobin 11.3 g/dL (12.0-15.0); Lymphocyte # 0.75 X10^3/ul (0.83-4.51); Lymphocyte % 8.8 % (19-41); Mean Corp Hgb Conc 32.4 g/dL (32-36); Mean Corpuscular Hgb 31.7 pg (27.0-32.0); Mean Corpuscular Volume 97.8 fL (81-99); Mean Platelet Vol. 8.6 fl (6.2-12.0); Monocyte# 0.81 X10^3/uL; Monocyte% 9.6 % (0-10); NRBC Flagged by Analyzer 0 % (0-5); Neutrophil # 6.74 X10^3/uL (2.7-7.7); Neutrophil % 79.5 % (47-70); Platelet Count 278 K/mm3 (150-450); RBC Distribution Width CV 13.6 % (11.6-14.6); RBC Distribution Width SD 48.7 fl (35.1-43.9); Red Blood Count 3.57 M/mm3 (4.2-5.4); White Blood Count 8.5 K/mm3 (4.4-11.0)
[2022-02-18 14:40] LABS: Anion Gap 11 (5-15); BUN 50 mg/dL (7-18); BUN/Creat Ratio 19.1 RATIO (10-20); Calcium,Total 8.4 mg/dL (8.5-10.1); Chloride 108 mmol/L (98-107); Creatinine, Serum 2.62 mg/dL (0.55-1.02); EST Glomerular Filtration Rate 20 mL/min (>60); Est Glom Filt Rate - Afr Amer 24 mL/min (>60); Estimated Creatinine Clearance 17.22 ml/min; Glucose 119 mg/dL (74-106); Potassium 4.6 mmol/L (3.5-5.1); Sodium Level 137 mmol/L (136-145)
--- NOTE | 2022-02-18 15:14 | EX.ED.DYSGE1 ---
HPI History of Present Illness Chief Complaint: Nausea/Vomiting/Diarrhea Detail of Chief Complaint: Nausea, vomiting diarrhea and upper respiratory symptoms that started the b Informant: patient Onset/Context/Timing Onset: Days (5 days ago) Context: Sudden Onset Timing: Intermittent Quality: Diffuse cramping abdominal pain Location: Respiratory and GI Current Severity: Mild Maximum Severity: Severe Worsened by: Nothing Relieved by: Nothing Associated Symptoms Associated Symptoms: Chills Narrative Narrative: Patient is a 56-year-old woman with history of chronic renal failure with a baseline creatinine of 1.2, obstructive sleep apnea, hypothyroidism, iron deficiency anemia, smoker for many years. She is decreased from 3 packs/day to 1 to 2 cigarettes/day. She presents with mild nasal congestion and cough. Cough is nonproductive. She does report nausea, vomiting diarrhea. She has not vomited today. She vomited 3 times yesterday. On Monday and Monday she vomited 5+ times a day. She states she is having profuse diarrhea. She has had several episodes of watery stool today. She denies history of Pseudomonas and colitis. She denies ill contacts. She denies blood or mucus in her stool/diarrhea. She does endorse thirst and dry mouth. She does endorse lightheadedness with standing. Prior similar symptoms: No Recent Illness/Hospitalization: No PFSH PFSH Medical History Abnormal stress test Abrasion Acute kidney injury Ambulates with cane Anemia, chronic renal failure Arthritis Biliary dyskinesia Blackout Cardiology follow-up encounter Chest pain Chronic anemia Constipation COPD (chronic obstructive pulmonary disease) with emphysema COPD exacerbation CPAP (continuous positive airway pressure) dependence CRF (chronic renal failure) Depression Diabetes Diabetes type 2, controlled Dietary restriction Dyslipidemia Easy bruising Encounter for screening for malignant neoplasm of lung in former smoker who quit in past 15 years with 30 pack year history or greater Fibroadenoma of left breast Gastric reflux Hemorrhoid High cholesterol History of back problems History of non-ST elevation myocardial infarction (NSTEMI) (01/17/20) History of pain when walking History of stress test History of tobacco use Hypertension Hypertension Hypoglycemia Hypothyroidism Insomnia Left arm numbness Left carotid bruit Low iron Microcalcification of left breast on mammogram Nicotine dependence Right lower lobe pneumonia Segmental and somatic dysfunction of lumbar region Segmental and somatic dysfunction of pelvic region Shortness of breath on exertion Sleep apnea Smoker Syncope Thyroid disease Unstable angina Wears glasses Wears partial dentures Home Medications atorvastatin 40 mg tablet 40 mg PO QHS cholesterol 08/11/14 [History Last Taken 02/17/22] famotidine 40 mg tablet 40 mg PO DAILY reflux 05/15/21 [History Last Taken Unknown] pantoprazole 40 mg tablet,delayed release 40 mg PO BID reflux 05/15/21 [History Last Taken 02/18/22] metformin 500 mg tablet 500 mg PO BID DM 10/05/21 [History Last Taken 02/18/22] linaclotide 72 mcg capsule (Linzess) 72 mcg PO DAILY IBS 12/14/21 [History Last Taken 02/18/22] doxepin 50 mg capsule 50 mg PO QHS DEPRESSION 02/18/22 [History Last Taken 02/17/22] levothyroxine 50 mcg tablet 50 mcg PO DAILY THYROID 02/18/22 [History Last Taken 02/17/22] lisinopril 2.5 mg tablet 2.5 mg PO DAILY BP 02/18/22 [History Last Taken 02/18/22] paroxetine HCl 20 mg tablet 20 mg PO DAILY DEPRESSION 02/18/22 [History Last Taken 02/18/22] pioglitazone 15 mg tablet 15 mg PO DAILY DM 02/18/22 [History Last Taken 02/18/22] nicotine 7 mg/24 hr daily transdermal patch 7 mg transdermal DAILY 30 days #30 ea 02/20/22 [Rx Last Taken Unknown] Allergy/AdvReac Type Severity Reaction Status Date / Time prochlorperazine edisylate Allergy Severe Rash Verified 02/18/22 13:18 [From Compazine] prochlorperazine maleate Allergy Severe Rash Verified 02/18/22 13:18 [From Compazine] Family History Father Myocardial infarction CVA (cerebral vascular accident) Mother Heart disease Seizures Sister Seizures Grandmother Cancer Grandfather Cancer Aunt Breast cancer Surgical History H/O: hysterectomy heart catheterization History of cardiac catheterization History of carpal tunnel surgery of left wrist History of cholecystectomy (01/17/20) History of esophagogastroduodenoscopy (EGD) History of hysterectomy History of left heart catheterization (02/10/20) history stereotactic biopsy left breast (~12/22/17) Hx laparoscopic cholecystectomy Hx of colonoscopy Hx of sinus surgery Social History household members: none Smoking Status: Former smoker quit date: 10/12/21 pack-years: 60 how long ago did patient quit smokin.5 months second hand exposure: No alcohol intake: never substance use type: does not use caffeine: Yes what type of physical activity do you participate in: walking frequency: daily ROS ROS ED Constitutional Constitutional ED: Denies chills, fever(s), subjective, sweats or weight loss Eyes Eyes: Denies blurry vision, change in vision or diplopia ENT ENT ED: Denies ear pain, rhinorrhea or sore throat Cardiovascular Cardiovascular: Denies chest pain, orthopnea, palpitations, paroxysmal nocturnal dyspnea or racing heartbeat Respiratory/Chest Respiratory/Chest: Reports cough; Denies dyspnea, dyspnea on exertion, orthopnea or paroxysmal nocturnal dyspnea Gastrointestinal Gastrointestinal: Reports abdominal pain, diarrhea, nausea and vomiting; Denies constipation or melena Genitourinary Genitourinary ED: Reports other Details: Decreased urine output and dark-colored urine ; Denies dysuria, hematuria or urinary frequency Musculoskeletal Musculoskeletal: Reports arthralgias and myalgias; Denies back pain or neck pain Integumentary Denies abscess or rash Neurologic Neurologic: Reports weakness; Denies headache(s) or paresthesias Psychiatric Psychiatric: Denies anxiety or depression Endocrine Endocrinology: Denies cold intolerance or heat intolerance Hematologic/Lymphatic Hematologic/Lymphatic: Denies easy bleeding, easy bruising or lymphadenopathy Allergic/Immunologic Allergic/Immunologic ED: Reports mouth swelling and tongue swelling EXAM Physical Exam Narrative Exam Narrative: Patient appears ill but not toxic. Const Vital Signs: 02/18/22 13:16 Temperature 98.4 F Temperature Source Temporal Pulse Rate 96 Respiratory Rate 18 Blood Pressure 89/50 L Blood Pressure Mean 63 Pulse Ox 99 Oxygen Delivery Method Room Air Positive well nourished and well developed; Negative for obese, cachectic, contractures or unkempt General Appearance ED: well developed; Negative for unkempt, cachectic, contractures, cyanotic, diaphoretic, NAD or pallor Nutritional Appearance: Negative for cachectic or obese HEENT Reports dry mucous membranes HEENT Narrative: Ears normal. TMs normal. Uvula without erythema or exudate. There is no angioedema. Mouth ED: Yes dry mucous membranes Mouth: dry mucous membranes Eyes PERRL and EOMs intact bilaterally General Eye ED: Negative for pale conjunctiva or scleral icterus Neck no lymphadenopathy, supple and no JVD Resp normal respiratory effort and clear to auscultation bilaterally Cardio regular rate, regular rhythm, S1 normal heart sound, S2 normal heart sound and no murmurs GI non-tender and non-distended; Negative for hepatosplenomegaly Auscultation: hyperactive bowel sounds Back/Spine no CVA tenderness Thoracic Spine / Upper Back: Negative for thoracic spinal tenderness Lumbar Spine / Lower Back: Negative for lumbar spinal tenderness Neuro oriented x3, CN's II-XII intact bilaterally and no sensory deficits noted Motor Exam: strength 5/5 throughout Psych mental status grossly normal Appearance: Negative for unkempt Skin no rashes or lesions noted and no wounds General Skin Exam: Negative for jaundice or pallor MDM MDM MDM Narrative Medical decision making narrative: Frontal diagnosis is viral illness with systemic symptoms versus COVID versus other causes. Patient's creatinine has risen from 1.2-2.62. She has a 9 anion gap acidosis with a CO2 of 18. She is slightly hemoconcentrated from baseline. White count is normal. Lab Data Attestation: I reviewed the patient's lab results. Labs: Laboratory Results - last 24 hr 02/18/22 02/18/22 13:32 13:32 WBC 8.5 RBC 3.57 L Hgb 11.3 L Hct 34.9 L MCV 97.8 MCH 31.7 MCHC 32.4 RDW Std Deviation 48.7 H RDW Coeff of Autumn 13.6 Plt Count 278 MPV 8.6 Immature Gran % (Auto) 0.400 Neut % (Auto) 79.5 H Lymph % (Auto) 8.8 L Peach % (Auto) 9.6 Eos % (Auto) 1.5 Baso % (Auto) 0.2 Absolute Neuts (auto) 6.7 Absolute Lymphs (auto) 0.75 L Nucleated RBC % 0 Sodium 137 Potassium 4.6 Chloride 108 H Carbon Dioxide 18.0 L Anion Gap 11 BUN 50 H Creatinine 2.62 H Estim Creat Clear Calc 17.22 Est GFR (MDRD) Af Amer 24 L Est GFR (MDRD) Non-Af 20 L BUN/Creatinine Ratio 19.1 Glucose 119 H Calcium 8.4 L Radiography Chest X-Ray - ED: 1 View and Read by ED Physician (Single portable chest x-ray independently interpreted reviewed by me at 1501 reveals an old seventh right rib fracture. There is minimal chronic changes noted. Cardiac silhouette size normal. There is no infiltrate. There is no effusion. Osseous structures other than the old healed right sevent) Diagnostic Testing: Clinical Impression(s) from Imaging Studies Chest X-Ray 02/18/22 13:58 IMPRESSION: There are no acute findings. Electronically Signed: Fausto Rhodes MD at 15:07 EDT , Treatment and Re-Evaluation Narrative: Patient was reassessed at 1521. She was informed of her lab results and need for admission. COVID test is pending. Patient reports slight improvement after IV fluids. Will order an additional liter since she has not urinated. Discharge Plan Dx/Rx/DC Orders Clinical Impression: Acute kidney injury (nontraumatic), Moderate dehydration, Abdominal pain, vomiting, and diarrhea, Systemic viral illness Disposition Disposition: Acute Care Hospital [facility] Discharge Date/Time: 02/18/22 17:00
--- NOTE | 2022-02-18 15:37 | PCM.HP.STD ---
HPI - General General Date of Admission: 02/18/22 Date of Service: 02/18/22 Chief Complaint: Nausea and vomiting and diarrhea - 4 days HPI Narrative FLORINDA LOPEZ, is a 56 F who presents with the above. In her usual state of health until about 4 days ago when she started having intractable nausea and vomiting as well as diarrhea. She last vomited on the morning of admission, about 2 times. She has had 3 bowel movement also in the morning of admission. Stools are very watery, nonbloody, nonmucoid. There are no associated abdominal cramps with this. She denied any fever but has chills. She admits to lightheadedness but denied any palpitations or chest pain. She however admits to feeling very weak. She denied any sick contact. She stated that she has a nonproductive cough. She denies any nasal congestion or postnasal drip. She has been vaccinated and has received a booster. Vitals in the ED show blood pressure 89/50, heart rate 96, respiratory 18, temperature 98.4 F. He WBC count 8.5, hemoglobin 11.2, platelet count 278, sodium 137, potassium 4.6, chloride 108, bicarbonate 18, BUN 50, creatinine 2.62. Rapid COVID-19 test is positive. Admitting chest x-ray showed no acute findings. [facility] Medical History Abnormal stress test Abrasion Acute kidney injury Ambulates with cane Anemia, chronic renal failure Arthritis Biliary dyskinesia Blackout Cardiology follow-up encounter Chest pain Chronic anemia Constipation COPD (chronic obstructive pulmonary disease) with emphysema COPD exacerbation CPAP (continuous positive airway pressure) dependence CRF (chronic renal failure) Depression Diabetes Diabetes type 2, controlled Dietary restriction Dyslipidemia Easy bruising Encounter for screening for malignant neoplasm of lung in former smoker who quit in past 15 years with 30 pack year history or greater Fibroadenoma of left breast Gastric reflux Hemorrhoid High cholesterol History of back problems History of non-ST elevation myocardial infarction (NSTEMI) (01/17/20) History of pain when walking History of stress test History of tobacco use Hypertension Hypertension Hypoglycemia Hypothyroidism Insomnia Left arm numbness Left carotid bruit Low iron Microcalcification of left breast on mammogram Nicotine dependence Right lower lobe pneumonia Segmental and somatic dysfunction of lumbar region Segmental and somatic dysfunction of pelvic region Shortness of breath on exertion Sleep apnea Smoker Syncope Thyroid disease Unstable angina Wears glasses Wears partial dentures Home Medications atorvastatin 40 mg tablet 40 mg PO QHS cholesterol 08/11/14 [History Last Taken 03/29/19] famotidine 40 mg tablet 40 mg PO DAILY reflux 05/15/21 [History Last Taken Unknown] pantoprazole 40 mg tablet,delayed release 40 mg PO BID reflux 05/15/21 [History Last Taken Unknown] metformin 500 mg tablet 500 mg PO BID DM 10/05/21 [History Last Taken Unknown] linaclotide 72 mcg capsule (Linzess) 72 mcg PO DAILY IBS 12/14/21 [History Last Taken Unknown] doxepin 50 mg capsule 50 mg PO QHS DEPRESSION 02/18/22 [History Last Taken Unknown] levothyroxine 50 mcg tablet 50 mcg PO DAILY THYROID 02/18/22 [History Last Taken Unknown] lisinopril 2.5 mg tablet 2.5 mg PO DAILY BP 02/18/22 [History Last Taken Unknown] paroxetine HCl 20 mg tablet 20 mg PO DAILY DEPRESSION 02/18/22 [History Last Taken Unknown] pioglitazone 15 mg tablet 15 mg PO DAILY DM 02/18/22 [History Last Taken Unknown] Allergy/AdvReac Type Severity Reaction Status Date / Time prochlorperazine edisylate Allergy Severe Rash Verified 02/18/22 13:18 [From Compazine] prochlorperazine maleate Allergy Severe Rash Verified 02/18/22 13:18 [From Compazine] Family History Father Myocardial infarction CVA (cerebral vascular accident) Mother Heart disease Seizures Sister Seizures Grandmother Cancer Grandfather Cancer Aunt Breast cancer Surgical History H/O: hysterectomy heart catheterization History of cardiac catheterization History of carpal tunnel surgery of left wrist History of cholecystectomy (01/17/20) History of esophagogastroduodenoscopy (EGD) History of hysterectomy History of left heart catheterization (02/10/20) history stereotactic biopsy left breast (~12/22/17) Hx laparoscopic cholecystectomy Hx of colonoscopy Hx of sinus surgery Social History household members: none Smoking Status: Former smoker quit date: 10/12/21 pack-years: 60 how long ago did patient quit smokin.5 months second hand exposure: No alcohol intake: never substance use type: does not use caffeine: Yes what type of physical activity do you participate in: walking frequency: daily ROS ROS Narrative Constitutional: Reports: Malaise, Weakness, Fatigue, chills. Denies: Anorexia, Fever, Night Sweats, Weight Change Eyes: Denies: Blurred vision, Cataracts, Conjunctivae Inflammation, Pain, Redness, Vision Change HEENT: Denies: Difficulty Hearing, Difficulty Swallowing, Head Aches, Hearing Changes, Sinus Congestion, Sinus Drainage Cardiovascular: Denies: Chest Pain, Orthopnea, Palpitations Respiratory: Admits to cough, denies: Shortness of breath at rest, Sputum production Gastrointestinal: See HPI Genitourinary: Denies: Dysuria Musculoskeletal: Denies: Joint Pain, Joint stiffness, Joint swelling, Joint Tenderness Skin: Denies: Rash, Wounds Neurological: Denies: Numbness, Tingling, Focal weakness Vital Signs Vital Signs Vital Signs: 02/18/22 13:16 02/18/22 15:28 Temperature 98.4 F 97.7 F L Temperature Source Temporal Oral Pulse Rate 96 81 Respiratory Rate 18 13 Blood Pressure 89/50 L 93/48 L Blood Pressure Mean 63 63 Pulse Ox 99 98 Oxygen Delivery Method Room Air Room Air Weight Weight: 63.503 kg Body Mass Index (BMI) 27.3 Physical Exam Narrative Physical exam: General: Alert, Oriented x3, Cooperative, appears unwell HEENT: Atraumatic Oral: Moist Mucosa Neck: Supple Lungs: Diminished to auscultation Cardiovascular: HS I+II, regular, no murmurs Abdomen: Bowel Sounds Present, Soft, Non Tender Extremities: No edema Skin: No rashes, No breakdown Neurological: Grossly intact Psych/Mental Status: Appropriate Results Lab / Micro Data Result Diagrams: 02/18/22 13:32 02/18/22 13:32 Labs: Laboratory Results - last 24 hr 02/18/22 13:32: WBC 8.5, RBC 3.57 L, Hgb 11.3 L, Hct 34.9 L, MCV 97.8, MCH 31.7, MCHC 32.4, RDW Std Deviation 48.7 H, RDW Coeff of Autumn 13.6, Plt Count 278, MPV 8.6, Immature Gran % (Auto) 0.400, Neut % (Auto) 79.5 H, Lymph % (Auto) 8.8 L, Clarke % (Auto) 9.6, Eos % (Auto) 1.5, Baso % (Auto) 0.2, Absolute Neuts (auto) 6.7, Absolute Lymphs (auto) 0.75 L, Nucleated RBC % 0 02/18/22 13:32: Sodium 137, Potassium 4.6, Chloride 108 H, Carbon Dioxide 18.0 L, Anion Gap 11, BUN 50 H, Creatinine 2.62 H, Estim Creat Clear Calc 17.22, Est GFR (MDRD) Af Amer 24 L, Est GFR (MDRD) Non-Af 20 L, BUN/Creatinine Ratio 19.1, Glucose 119 H, Calcium 8.4 L Radiology Impression Chest X-Ray 02/18/22 13:58 IMPRESSION: There are no acute findings. Electronically Signed: Fausto Rhodes MD at 15:07 EDT Reading Location ID and State: [facility] / [place] , Service support , Assessment & Plan Assessment/Plan (1) Intractable nausea and vomiting: (2) Abdominal pain, vomiting, and diarrhea: PLAN: Plan 1. Acute intractable nausea, vomiting and diarrhea secondary to acute COVID-19 infection We will admit to MedSur, check stool for C. difficile/enteric panel also, manage symptomatically, IV fluid 2. CELINE on CKD IIIa, in patient baseline creatinine 1.2 Admitting Cr was 2.62, secondary to #1 We will continue on IV fluids, check UA, urine creatinine, urine sodium Hold lisinopril Repeat blood work in a.m. 3. Acute non-gap metabolic acidosis secondary to #1 We will continue to monitor Repeat blood work in a.m. 4. Chronic nicotine abuse, advised to quit, continue replacement 5. Type 2 DM, blood sugars fairly controlled, hold metformin and pioglitazone Continue on insulin sliding scale with blood glucose checks 6. Hypothyroidism, continue Synthroid 7. TODD, on CPAP 8. Hypertension, relatively hypotensive now, receiving IV fluids Hold lisinopril, continue with maintenance IV fluids 9. Anxiety/depression, continue Paxil, doxepin 9. DVT PPx -Heparin subcu Charges/Coding Visit Charges Inpatient E&M: 81926 Init Hosp L3
[2022-02-18 16:53] LABS: Mucous, Urine 0 SEEN /hpf (<or=2+); Red Blood Cells-Urine 0 SEEN /hpf (0-5)
[2022-02-18 16:55] LABS: Color, Urine Yellow (Yellow); Glucose, Dipstick Normal (Normal); Ketone-Dipstick Negative (Negative); Leukocyte Esterase-Dipstick 100 /ul (Negative); Nitrite-Dipstick Negative (Negative); Occult Blood-Urine Negative /ul (Negative); Protein-Dipstick Negative (Negative); Specific Gravity, Urine 1.015 (1.002-1.030); Urine Bilirubin Dipstick Negative (Negative); Urine Clarity Clear (Clear); Urine Urobilinogen Normal (Normal)
[2022-02-18 17:09] LABS: Urine Sodium 70 mmol/L (Not Establ.)
[2022-02-18 17:19] LABS: Bacteria 1+ /hpf (None Seen); Squamous Epithelial Cells - UA 0-5 SEEN /hpf (5-10); White Blood Cells 0-5 SEEN /hpf (0-5)
[2022-02-18] MEDS: Lactated Ringers 1,000 ML 125 ML IV (18:02)
[2022-02-18 18:26] LABS: Bedside Glucose 106 mg/dL (74-106)
--- NOTE | 2022-02-18 18:28 | EKG12_ITS ---
Test Reason : CHEST PAIN Blood Pressure : / mmHG Vent. Rate : 068 BPM Atrial Rate : 068 BPM P-R Int : 210 ms QRS Dur : 076 ms QT Int : 404 ms P-R-T Axes : 064 072 051 degrees QTc Int : 429 ms Sinus rhythm with 1st degree A-V block Otherwise normal ECG Confirmed by ROSEY PEDROZA, ZOYA ([id number]), market editor TIFFANIE CARDONA ([id number]) on 02/22/2022 8:36:08 AM Referred By: MYRTLE Confirmed By:ZOYA CURRIE MD
--- NOTE | 2022-02-18 18:30 | NURSING ---
Pt reports having chest pain. Pt states she had Chest pain in ED but nothing was done. pt rates 10 out of 10 chest pain and it feels like pressure but does not radiate anywhere but feels like pressure across her chest. Dr. Cai aware and ordered EKG and Troponins. CPS is aware.
[2022-02-18 19:56] LABS: Troponin-I HS 6 pg/mL (3.0-54.0)
[2022-02-18] MEDS: Acetaminophen 325 MG Tablet 650 MG PO (22:23)
[2022-02-18] MEDS: DOXEPIN HCL 50 MG CAPSULE PO (22:23)
[2022-02-18] MEDS: Heparin Injection (Vial) 5,000 UNIT/ML VIAL 5000 UNIT SC (22:24)
[2022-02-18] MEDS: 0.9% Saline Lock 10 ML Syringe IV (22:26)
[2022-02-18 22:35] LABS: Bedside Glucose 79 mg/dL (74-106)
[2022-02-19] VITALS (7 sets, daily range): BP systolic 98–108; BP diastolic 40–52; PULSE 64–84; RESP 18; TEMP 36.3–37.3; O2SAT 95–99
[2022-02-19] MEDS: Lactated Ringers 1,000 ML 125 ML IV (02:54)
[2022-02-19] MEDS: 0.9% Saline Lock 10 ML Syringe IV (06:14)
[2022-02-19] MEDS: Levothyroxine 50 MCG Tablet PO (06:14)
[2022-02-19 06:27] LABS: Absolute Lymphocyte Count 1.35 X10^3/uL (0.83-4.51); Absolute Neutrophil Count 1.9 X10^3/uL (2.0-7.7); Basophil# 0.01 X10^3/uL; Basophil% 0.2 % (0-1); Eosinophil# 0.16 X10^3/uL; Hematocrit 31.7 % (37-47); Hemoglobin 10.1 g/dL (12.0-15.0); Lymphocyte # 1.35 X10^3/ul (0.83-4.51); Lymphocyte % 33.7 % (19-41); Mean Corp Hgb Conc 31.9 g/dL (32-36); Mean Corpuscular Hgb 31.9 pg (27.0-32.0); Mean Platelet Vol. 8.4 fl (6.2-12.0); Monocyte# 0.56 X10^3/uL; NRBC Flagged by Analyzer 0 % (0-5); Neutrophil # 1.92 X10^3/uL (2.7-7.7); Neutrophil % 47.9 % (47-70); Platelet Count 214 K/mm3 (150-450); RBC Distribution Width CV 13.6 % (11.6-14.6); RBC Distribution Width SD 49.5 fl (35.1-43.9); Red Blood Count 3.17 M/mm3 (4.2-5.4)
[2022-02-19 06:35] LABS: Bedside Glucose 87 mg/dL (74-106)
[2022-02-19 06:57] LABS: ALB/GLOB Ratio 1.2 RATIO (0.9-2.4); AST(SGOT) 37 U/L (15-37); Alanine Aminotransfer ALT/SGPT 40 U/L (13-56); Albumin, Serum 2.8 g/dL (3.2-5.0); Alkaline Phosphatase 99 U/L (45-117); Anion Gap 4 (5-15); BUN 34 mg/dL (7-18); Calcium,Total 8.3 mg/dL (8.5-10.1); Chloride 116 mmol/L (98-107); Creatinine, Serum 1.79 mg/dL (0.55-1.02); EST Glomerular Filtration Rate 31 mL/min (>60); Est Glom Filt Rate - Afr Amer 38 mL/min (>60); Estimated Creatinine Clearance 25.21 ml/min; Globulin 2.4 g/dL (2.2-4.2); Glucose 96 mg/dL (74-106); Magnesium 2.2 mg/dL (1.6-2.6); Potassium 5.1 mmol/L (3.5-5.1); Protein, Total 5.2 g/dL (6.4-8.2); Sodium Level 142 mmol/L (136-145)
--- NOTE | 2022-02-19 07:44 | PN.HOSP_ITS ---
Subjective Subjective Follow-up on acute COVID-19 infection/CELINE/severe gastroenteritis: Patient was seen and examined. There has been no diarrhea or nausea or vomiting since admission. She feels improved. Denies any fever or chills. Remains off oxygen. Objective Data Objective Data Vital Signs: Vital Signs Temp Pulse Resp BP Pulse Ox 97.3 F L 64 18 98/41 L 96 02/19/22 02:46 02/19/22 06:54 02/19/22 02:46 02/19/22 02:46 02/19/22 06:54 Oxygen Delivery Method Room Air Weight: 71.4 kg Body Mass Index (BMI) 30.7 Intake & Output: Intake and Output for Last 24 Hours 02/17/22 02/18/22 02/19/22 23:59 23:59 23:59 Intake Total 1514.58 / 1514.58 985.42 / 985.42 Output Total 1200 / 1200 Balance 1514.58 / 1214.58 -214.58 / -214.58 Lab / Micro Data Result Diagrams: 02/19/22 06:07 02/19/22 06:07 Labs: Laboratory Results - last 24 hr 02/18/22 13:32: WBC 8.5, RBC 3.57 L, Hgb 11.3 L, Hct 34.9 L, MCV 97.8, MCH 31.7, MCHC 32.4, RDW Std Deviation 48.7 H, RDW Coeff of Autumn 13.6, Plt Count 278, MPV 8.6, Immature Gran % (Auto) 0.400, Neut % (Auto) 79.5 H, Lymph % (Auto) 8.8 L, Dewitt % (Auto) 9.6, Eos % (Auto) 1.5, Baso % (Auto) 0.2, Absolute Neuts (auto) 6.7, Absolute Lymphs (auto) 0.75 L, Nucleated RBC % 0 02/18/22 13:32: Sodium 137, Potassium 4.6, Chloride 108 H, Carbon Dioxide 18.0 L , Anion Gap 11, BUN 50 H, Creatinine 2.62 H, Estim Creat Clear Calc 17.22, Est GFR (MDRD) Af Amer 24 L, Est GFR (MDRD) Non-Af 20 L, BUN/Creatinine Ratio 19.1, Glucose 119 H, Calcium 8.4 L 02/18/22 13:32: Magnesium 2.0 02/18/22 16:40: Urine Color Yellow, Urine Clarity Clear, Urine pH 6.0, Ur Specific [place] 1.015, Urine Protein Negative, Urine Glucose (UA) Normal, Urine Ketones Negative, Urine Occult Blood Negative, Urine Nitrite Negative, Urine Bilirubin Negative, Urine Urobilinogen Normal, Ur Leukocyte Esterase 100 H, Urine RBC 0 SEEN, Urine WBC 0-5 SEEN, Ur Squamous Epith Cells 0-5 SEEN, Urine Bacteria 1+, Urine Mucus 0 SEEN 02/18/22 16:40: Ur Random Sodium 70, Urine Creatinine 51.80 02/18/22 18:04: POC Glucose 106 02/18/22 19:00: Troponin I High Sens 6 02/18/22 19:39: D-Dimer Quant (PE/DVT) 0.40 02/18/22 22:18: POC Glucose 79 02/19/22 06:07: WBC 4.0 L, RBC 3.17 L, Hgb 10.1 L, Hct 31.7 L, MCV 100.0 H, MCH 31.9, MCHC 31.9 L, RDW Std Deviation 49.5 H, RDW Coeff of Autumn 13.6, Plt Count 214, MPV 8.4, Immature Gran % (Auto) 0.200, Neut % (Auto) 47.9, Lymph % (Auto) 33.7, Dewitt % (Auto) 14.0 H, Eos % (Auto) 4.0, Baso % (Auto) 0.2, Absolute Neuts (auto) 1.9 L, Absolute Lymphs (auto) 1.35, Nucleated RBC % 0 02/19/22 06:07: Sodium 142, Potassium 5.1, Chloride 116 H, Carbon Dioxide 22.0, Anion Gap 4 L, BUN 34 H, Creatinine 1.79 H, Estim Creat Clear Calc 25.21, Est GFR (MDRD) Af Amer 38 L, Est GFR (MDRD) Non-Af 31 L, BUN/Creatinine Ratio 19.0, Glucose 96, Calcium 8.3 L, Magnesium 2.2, Total Bilirubin 0.20, AST 37, ALT 40, Alkaline Phosphatase 99, Total Protein 5.2 L, Albumin 2.8 L, Globulin 2.4, Albumin/Globulin Ratio 1.2 02/19/22 06:17: POC Glucose 87 Micro: Microbiology 02/18/22 15:28 Nasal Secretion SARS-CoV-2 Antigen (Rapid) - Final SARS-CoV-2 (COVID 19) Radiography Diagnostic Testing: Radiology Impression Chest X-Ray 02/18/22 13:58 IMPRESSION: There are no acute findings. Electronically Signed: Fausto Rhodes MD at 15:07 EDT Reading Location ID and State: [facility] / [place] , Service support , Physical Exam Narrative Physical exam: General: Alert, Oriented x3, Cooperative, slightly improved HEENT: Atraumatic Oral: Moist Mucosa Neck: Supple Lungs: Diminished to auscultation Cardiovascular: HS I+II, regular, no murmurs Abdomen: Bowel Sounds Present, Soft, Non Tender Extremities: No edema Skin: No rashes, No breakdown Neurological: Grossly intact Psych/Mental Status: Appropriate Assessment & Plan Assessment/Plan (1) Intractable nausea and vomiting: (2) Abdominal pain, vomiting, and diarrhea: PLAN: Plan 1. Acute intractable nausea, vomiting and diarrhea secondary to acute COVID-19 infection Appears resolved, able to eat We will advance her diet, DC IV fluids, continue to monitor symptomatically 2. CELINE on CKD IIIa, in patient baseline creatinine 1.2, slowly improving Admitting Cr was 2.62, secondary to #1; creatinine now is 1.79 DC IV fluids as patient is able to take adequate oral intake Continue to hold lisinopril Repeat blood work in a.m. 3. Acute non-gap metabolic acidosis secondary to #1, resolved Repeat blood work in a.m. 4. Acute COVID-19 infection without hypoxia, patient has been vaccinated already. We will hold off on dexamethasone as patient has no hypoxia Will also hold off on remdesivir as patient has acute kidney injury 5. Chronic nicotine abuse, advised to quit, continue replacement 6. Type 2 DM, patient with episodes of hypoglycemia, Continue to hold metformin and pioglitazone Continue on insulin sliding scale with blood glucose checks 7. Hypothyroidism, continue Synthroid 8. TODD, on CPAP 9. Hypertension, remains relatively hypotensive, Encourage oral intake Hold lisinopril 10. Anxiety/depression, continue Paxil, doxepin 11. DVT PPx -Heparin subcu Charges/Coding Visit Charges Inpatient E&M: 22509 Subs Hosp L2
--- NOTE | 2022-02-19 08:20 | CASEMGMT ---
SERA VANEGAS Assessment: Face to Face with pt for initial transition planning/care coordination assessment. RN ROMINA introduced self and role at [facility], pt voices understanding and consents to assessment. Pt is A/O x4 and answers all questions appropriately at this time. Pt sitting up in bed in no distress on RA. Care providers, pharmacy, and demographics verified/updated. Admitting Dx: CELINE, COVID PCP:Avelino Specialists:perla Jones Preferred Pharmacy: [facility] Retail Insurance: [facility] Prescription Benefit: yes LW/HPOA: Pt denies having a LW/DPOA and denies need for info regarding AD. LNOK: Jeffry Bhatti, ex brother in law Living Arrangements: Pt lives with ex brother in law in a mobile home with 4 steps to enter with a rail. Pt reports she is I in ADL's and denies concerns at home. Transportation: Pt drives self and denies concerns with transportation. DME/HHC/SNF: Pt has a BGM at home but does not check her blood sugars. She has a cane but does not use. Pt denies hx of HHC or SNF stays. Pt states no concerns with going home at time of dc. Pt states no further concerns/needs. CM to follow. Advised pt to ask CM if any further question/concerns/needs arise, voices understanding. Pt Goal: Home Plan: Home
[2022-02-19] MEDS: Heparin Injection (Vial) 5,000 UNIT/ML VIAL 5000 UNIT SC ×2 (10:09→21:50)
[2022-02-19 11:35] LABS: Bedside Glucose 138 mg/dL (74-106)
[2022-02-19 17:01] LABS: Bedside Glucose 95 mg/dL (74-106)
[2022-02-19] MEDS: DOXEPIN HCL 50 MG CAPSULE PO (21:50)
[2022-02-19 22:05] LABS: Bedside Glucose 115 mg/dL (74-106)
[2022-02-20 04:34] VITALS: BP 109/50; PULSE 76; RESP 18; TEMP 37; O2SAT 92
[2022-02-20] MEDS: Levothyroxine 50 MCG Tablet PO (04:35)
[2022-02-20 04:54] LABS: Absolute Lymphocyte Count 1.76 X10^3/uL (0.83-4.51); Basophil# 0.02 X10^3/uL; Basophil% 0.5 % (0-1); Eosinophil# 0.18 X10^3/uL; Eosinophils% 4.1 % (0-5); Hemoglobin 10.2 g/dL (12.0-15.0); Lymphocyte # 1.76 X10^3/ul (0.83-4.51); Lymphocyte % 40.2 % (19-41); Mean Corp Hgb Conc 31.9 g/dL (32-36); Mean Corpuscular Hgb 31.5 pg (27.0-32.0); Mean Corpuscular Volume 98.8 fL (81-99); Mean Platelet Vol. 8.5 fl (6.2-12.0); Monocyte# 0.43 X10^3/uL; Monocyte% 9.8 % (0-10); NRBC Flagged by Analyzer 0 % (0-5); Neutrophil # 1.98 X10^3/uL (2.7-7.7); Neutrophil % 45.2 % (47-70); Platelet Count 234 K/mm3 (150-450); RBC Distribution Width CV 13.2 % (11.6-14.6); RBC Distribution Width SD 47.7 fl (35.1-43.9); Red Blood Count 3.24 M/mm3 (4.2-5.4); White Blood Count 4.4 K/mm3 (4.4-11.0)
[2022-02-20 05:10] LABS: ALB/GLOB Ratio 1.1 RATIO (0.9-2.4); AST(SGOT) 19 U/L (15-37); Alanine Aminotransfer ALT/SGPT 32 U/L (13-56); Albumin, Serum 2.9 g/dL (3.2-5.0); Alkaline Phosphatase 88 U/L (45-117); Anion Gap 7 (5-15); BUN 35 mg/dL (7-18); BUN/Creat Ratio 22.2 RATIO (10-20); Calcium,Total 8.5 mg/dL (8.5-10.1); Chloride 110 mmol/L (98-107); Creatinine, Serum 1.58 mg/dL (0.55-1.02); EST Glomerular Filtration Rate 36 mL/min (>60); Est Glom Filt Rate - Afr Amer 43 mL/min (>60); Estimated Creatinine Clearance 28.56 ml/min; Globulin 2.7 g/dL (2.2-4.2); Glucose 91 mg/dL (74-106); Potassium 4.6 mmol/L (3.5-5.1); Protein, Total 5.6 g/dL (6.4-8.2); Sodium Level 139 mmol/L (136-145)
[2022-02-20 05:57] VITALS: PULSE 78; O2SAT 92
--- NOTE | 2022-02-20 08:58 | DCINST_ITS ---
Discharge Instructions Diet Discharge Diet: 2000 mg Sodium Diet Activity Discharge Activity: Return to Normal Activity Weight Bearing Status: Weight bearing as tolerated Follow Up Care Test Results: Test results from this visit will be discussed in further detail at your follow- up appointment, if applicable. Discharge Plan Admission Admit Date/Time: 02/18/22 15:31 Primary Reason for Your Visit: Acute COVID-19 infection Attending Provider: Aleida Cai Primary Care Provider: Bret You Chi Instructions Additional Instructions / Restrictions: Continue to use your incentive spirometer. Continue to remain active and eat healthy. Let your doctor know if you develop fever >101.3F or have progressive worsening shortness of breath. Continue to quarantine for 10 days total from the start of your symptoms. Discharge Orders/Prescriptions Prescriptions: New nicotine 7 mg/24 hr Patch 24 Hour 7 mg transdermal DAILY 30 Days Qty: 30 0RF Continued Linzess 72 mcg capsule 72 mcg PO DAILY atorvastatin 40 MG tablet 40 mg PO QHS Label Comments: cholesterol metformin 500 mg Tablet 500 mg PO BID famotidine 40 mg tablet 40 mg PO DAILY pantoprazole 40 mg tablet,delayed release (DR/EC) 40 mg PO BID pioglitazone 15 mg tablet 15 mg PO DAILY doxepin 50 mg capsule 50 mg PO QHS levothyroxine 50 mcg tablet 50 mcg PO DAILY paroxetine HCl 20 mg tablet 20 mg PO DAILY lisinopril 2.5 mg tablet 2.5 mg PO DAILY Referrals / Follow Up: Bret You Chi, MD [Primary Care Provider] - In 1 Week Disposition Disposition (needs filled in before D/C Order can be placed): Home, Self Care
[2022-02-20 09:13] VITALS: O2SAT 96; O2SAT 97
[2022-02-20 09:14] VITALS: BP 104/59; PULSE 82; RESP 18; TEMP 36.6; O2SAT 97
[2022-02-20] MEDS: Heparin Injection (Vial) 5,000 UNIT/ML VIAL 5000 UNIT SC (09:20)
--- NOTE | 2022-02-20 09:33 | PCM.DC.SUM ---
Providers Date of Admission: 02/18/22 Date of Discharge: 02/20/22 Primary Care Physician: Dr. Bret You MD Reason For Visit: CELINE Diagnosis Discharge Diagnosis (1) Intractable nausea and vomiting: Status: Acute Code(s): R11.2 - Nausea with vomiting, unspecified (2) Abdominal pain, vomiting, and diarrhea: Status: Acute Code(s): R10.9 - Unspecified abdominal pain; R11.10 - Vomiting, unspecified; R19.7 - Diarrhea, unspecified Medications at Discharge Home Medications atorvastatin 40 mg tablet 40 mg PO QHS cholesterol 08/11/14 famotidine 40 mg tablet 40 mg PO DAILY reflux 05/15/21 pantoprazole 40 mg tablet,delayed release 40 mg PO BID reflux 05/15/21 metformin 500 mg tablet 500 mg PO BID DM 10/05/21 linaclotide 72 mcg capsule (Linzess) 72 mcg PO DAILY IBS 12/14/21 doxepin 50 mg capsule 50 mg PO QHS DEPRESSION 02/18/22 levothyroxine 50 mcg tablet 50 mcg PO DAILY THYROID 02/18/22 lisinopril 2.5 mg tablet 2.5 mg PO DAILY BP 02/18/22 paroxetine HCl 20 mg tablet 20 mg PO DAILY DEPRESSION 02/18/22 pioglitazone 15 mg tablet 15 mg PO DAILY DM 02/18/22 nicotine 7 mg/24 hr daily transdermal patch 7 mg transdermal DAILY 30 days #30 ea 02/20/22 Hospital Course Operations None Procedures None Summary of Care Provided Minutes Spent on Discharge: 35 Hospital Course: 56-year-old female past medical history of type II DM, on oral antidiabetics, hypertension, who has had her COVID-19 immunizations and comes in with complaints of intractable nausea and vomiting as well as diarrhea. Patient had vomited several times prior to admission and had loose stools. She had 3 bowel movement that were watery and the day of admission. Patient also admitted to some cough but no nasal congestion. She denied any sick contacts. Work-up in the emergency room was significant for relative hypotension, BUN of 50, creatinine of 2.62, baseline creatinine was around 1.2. Patient's rapid COVID-19 test was also positive. She was admitted to [facility] and managed on IV fluids. Patient did not require oxygen and did not require any oxygen throughout her hospital stay. She improved significantly on IV fluids. She did not have any diarrhea. Creatinine steadily improved to 1.79 and then 1.58 at discharge. Patient did not qualify for oxygen on ambulation at discharge. She was told to continue to drink fluids to keep yourself hydrated. She knows she needs repeat blood work within a week. She will follow-up with her primary care doctor after her quarantine. Physical Exam Narrative Physical exam: General: Alert, Oriented x3, Cooperative HEENT: Atraumatic Oral: Moist Mucosa Neck: Supple Lungs: Diminished to auscultation Cardiovascular: HS I+II, regular, no murmurs Abdomen: Bowel Sounds Present, Soft, Non Tender Extremities: No edema Skin: No rashes, No breakdown Neurological: Grossly intact Psych/Mental Status: Appropriate Weight / BMI Weight Weight: 71.4 kg Body Mass Index (BMI) 30.7 ABG / Lab / Microbiology Data Result Diagrams: 02/20/22 04:29 02/20/22 04:29 Laboratory: Laboratory Results - last 24 hr 02/19/22 11:27: POC Glucose 138 H 02/19/22 16:44: POC Glucose 95 02/19/22 21:45: POC Glucose 115 H 02/20/22 04:29: WBC 4.4, RBC 3.24 L, Hgb 10.2 L, Hct 32.0 L, MCV 98.8, MCH 31.5, MCHC 31.9 L, RDW Std Deviation 47.7 H, RDW Coeff of Autumn 13.2, Plt Count 234, MPV 8.5, Immature Gran % (Auto) 0.200, Neut % (Auto) 45.2 L, Lymph % (Auto) 40.2, [place] % (Auto) 9.8, Eos % (Auto) 4.1, Baso % (Auto) 0.5, Absolute Neuts (auto) 2.0, Absolute Lymphs (auto) 1.76, Nucleated RBC % 0 02/20/22 04:29: Sodium 139, Potassium 4.6, Chloride 110 H, Carbon Dioxide 22.0, Anion Gap 7, BUN 35 H, Creatinine 1.58 H, Estim Creat Clear Calc 28.56, Est GFR (MDRD) Af Amer 43 L, Est GFR (MDRD) Non-Af 36 L, BUN/Creatinine Ratio 22.2 H, Glucose 91, Calcium 8.5, Magnesium 2.0, Total Bilirubin 0.20, AST 19, ALT 32, Alkaline Phosphatase 88, Total Protein 5.6 L, Albumin 2.9 L, Globulin 2.7, Albumin/Globulin Ratio 1.1 Microbiology: Microbiology 02/18/22 15:28 Nasal Secretion SARS-CoV-2 Antigen (Rapid) - Final SARS-CoV-2 (COVID 19) D/C Instructions Discharge Diet: 2000 mg Sodium Diet and Carb Control Diet Weight Bearing Status: Weight bearing as tolerated Meaningful Use Info Meaningful Use Diagnoses (Choose all that apply): None applicable Discharge Plan Admission Admit Date/Time: 02/18/22 15:31 Primary Reason for Your Visit: Acute COVID-19 infection Attending Provider: Aleida Cai Primary Care Provider: Bret You Chi Instructions Additional Instructions / Restrictions: Continue to use your incentive spirometer. Continue to remain active and eat healthy. Let your doctor know if you develop fever >101.3F or have progressive worsening shortness of breath. Continue to quarantine for 10 days total from the start of your symptoms. Discharge Orders/Prescriptions Prescriptions: New nicotine 7 mg/24 hr Patch 24 Hour 7 mg transdermal DAILY 30 Days Qty: 30 0RF Continued Linzess 72 mcg capsule 72 mcg PO DAILY atorvastatin 40 MG tablet 40 mg PO QHS Label Comments: cholesterol metformin 500 mg Tablet 500 mg PO BID famotidine 40 mg tablet 40 mg PO DAILY pantoprazole 40 mg tablet,delayed release (DR/EC) 40 mg PO BID pioglitazone 15 mg tablet 15 mg PO DAILY doxepin 50 mg capsule 50 mg PO QHS levothyroxine 50 mcg tablet 50 mcg PO DAILY paroxetine HCl 20 mg tablet 20 mg PO DAILY lisinopril 2.5 mg tablet 2.5 mg PO DAILY Referrals / Follow Up: Bret You Chi, MD [Primary Care Provider] - In 1 Week Disposition Disposition (needs filled in before D/C Order can be placed): Home, Self Care Charges/Coding Visit Charges Inpatient E&M: 34334 Disch Hosp
== END 2022-02-20 11:07 | disposition home or self-care (01) | DRG 137 ==
LOC: ED 15:23 → MS3 02-20 09:33
PROVIDERS: Admitting Provider Internal Medicine; Emergency Provider Emergency Medicine; PCP Family Medicine Geriatric Medicine; Visit Provider Internal Medicine
DX: U07.1 COVID-19 (principal); N17.9 Acute kidney failure, unspecified; E11.22 Type 2 diabetes mellitus with diabetic chronic kidney disease; I12.9 Hypertensive chronic kidney disease with stage 1 through stage 4 chronic kidney disease, or unspecified chronic kidney disease; N18.31 Chronic kidney disease, stage 3a; K52.9 Noninfective gastroenteritis and colitis, unspecified; J43.9 Emphysema, unspecified; E87.2 Acidosis; E03.9 Hypothyroidism, unspecified; D50.9 Iron deficiency anemia, unspecified; E78.00 Pure hypercholesterolemia, unspecified; E86.0 Dehydration; I95.9 Hypotension, unspecified; G47.33 Obstructive sleep apnea (adult) (pediatric); F32.A Depression, unspecified; F41.9 Anxiety disorder, unspecified; F17.210 Nicotine dependence, cigarettes, uncomplicated; I25.2 Old myocardial infarction; Z79.84 Long term (current) use of oral hypoglycemic drugs; Z79.899 Other long term (current) drug therapy; Z87.891 Personal history of nicotine dependence
CPT/HCPCS: 36415; 71045; 80048; 80053; 81001; 82570; 82962; 83735; 84300; 84484; 85025; 85379; 87811; 93005; 96361; 96372; 96374; 99221; 99251; 99252; 99284; J7030; J7040; J7120; A4216; G0378; G0463; J2405

== ENCOUNTER → 2022-03-14 | Outpatient (CLI) | payer MEDICAID, SELFPAY ==
[2022-03-14 12:40] LABS: Absolute Lymphocyte Count 1.33 X10^3/uL (0.83-4.51); Absolute Neutrophil Count 3.3 X10^3/uL (2.0-7.7); Basophil# 0.03 X10^3/uL; Basophil% 0.6 % (0-1); Eosinophil# 0.27 X10^3/uL; Hematocrit 35.9 % (37-47); Hemoglobin 11.5 g/dL (12.0-15.0); Lymphocyte # 1.33 X10^3/ul (0.83-4.51); Lymphocyte % 24.7 % (19-41); Mean Corpuscular Hgb 31.3 pg (27.0-32.0); Mean Corpuscular Volume 97.6 fL (81-99); Mean Platelet Vol. 8.5 fl (6.2-12.0); Monocyte# 0.46 X10^3/uL; Monocyte% 8.5 % (0-10); NRBC Flagged by Analyzer 0 % (0-5); Neutrophil # 3.28 X10^3/uL (2.7-7.7); Neutrophil % 60.8 % (47-70); Platelet Count 373 K/mm3 (150-450); RBC Distribution Width CV 13.7 % (11.6-14.6); Red Blood Count 3.68 M/mm3 (4.2-5.4); White Blood Count 5.4 K/mm3 (4.4-11.0)
[2022-03-14 13:04] LABS: ALB/GLOB Ratio 1.1 RATIO (0.9-2.4); AST(SGOT) 12 U/L (15-37); Alanine Aminotransfer ALT/SGPT 24 U/L (13-56); Albumin, Serum 3.4 g/dL (3.2-5.0); Alkaline Phosphatase 109 U/L (45-117); Anion Gap 4 (5-15); BUN 21 mg/dL (7-18); BUN/Creat Ratio 15.4 RATIO (10-20); Chloride 107 mmol/L (98-107); Creatinine, Serum 1.36 mg/dL (0.55-1.02); EST Glomerular Filtration Rate 43 mL/min (>60); Est Glom Filt Rate - Afr Amer 52 mL/min (>60); Globulin 3.2 g/dL (2.2-4.2); Glucose 248 mg/dL (74-106); Potassium 4.4 mmol/L (3.5-5.1); Protein, Total 6.6 g/dL (6.4-8.2); Sodium Level 137 mmol/L (136-145); Thyroid Stim Hormone (TSH) 1.76 uIU/mL (0.358-3.74)
== END | disposition home or self-care (01) ==
PROVIDERS: PCP Family Medicine Geriatric Medicine; Visit Provider Family Medicine Geriatric Medicine
DX: I10 Essential (primary) hypertension (principal); E11.65 Type 2 diabetes mellitus with hyperglycemia
CPT/HCPCS: 36415; 80053; 84443; 85025

== ENCOUNTER → 2022-04-22 | Outpatient (CLI) | payer MEDICAID, SELFPAY ==
--- NOTE | 2022-04-22 12:07 | ART_ITS ---
Reason For Study: Disorder of arteries and arterioles Procedure A bilateral lower extremity continuous wave Doppler with analog waveform analysis and ankle brachial indexes. Left Segmental Pressures Left brachial= 123mmHg. Left posterior tibial artery = 134mmHg. Left dorsalis pedis artery = 144mmHg. The left dorsalis pedis waveforms are triphasic. The left posterior tibial artery waveforms are triphasic. Right Segmental Pressures Right brachial= 130mmHg. Right posterior tibial artery = 136mmHg. Right dorsalis pedis artery = 116mmHg. The right dorsalis pedis waveforms are triphasic. The right posterior tibial artery waveforms are triphasic. Indices The right ankle brachial index by the dorsalis pedis is 0.89. The right ankle brachial index by the posterior tibial artery is 1.05. The left ankle brachial index by the dorsalis pedis is 1.11. The left ankle brachial index by the posterior tibial artery is 1.03. VL/Ankle Brachial Index Interpretation Summary Triphasic Doppler waveforms are noted at ankle level bilaterally. Pulse-volume recordings appear slightly diminished at digital level on the left, but satisfactory at digital l evel on the right, and satisfactory at ankle level bilaterally. Resting ankle-brachial indices are normal bilaterally. There is no evidence of significant arterial occlusive disease in the lower ext remities bilaterally. Ordering Physician: Bret You Chi Referring Physician: Bret You Chi Performed By: Jazmín Gardiner RVT
== END | disposition home or self-care (01) ==
LOC: CVS 12:03
PROVIDERS: PCP Family Medicine Geriatric Medicine; Referring Provider Family Medicine Geriatric Medicine; Visit Provider Family Medicine Geriatric Medicine
DX: I77.9 Disorder of arteries and arterioles, unspecified (principal)
CPT/HCPCS: 93922

== ENCOUNTER → 2022-04-27 | Outpatient (CLI) | payer MEDICAID, SELFPAY ==
--- NOTE | 2022-04-27 10:46 | RAD_ITS ---
STUDY: X-RAY - THORACIC SPINE REASON FOR EXAM: Female, 56 years old. PAIN TECHNIQUE: 2 view(s) of the thoracic spine were obtained. COMPARISON: None. FINDINGS: Mild accentuation of thoracic kyphosis. Moderate anterior information and loss of disc space height T5-T12. Mild loss of disc space height and anterior osteophyte formation T1-T5. RAD/Thoracic Spine 2 Views IMPRESSION: Degenerative changes as above. Electronically Signed: Eliseo Garcia MD, [place] at 11:53 EDT ,
== END | disposition home or self-care (01) ==
PROVIDERS: PCP Family Medicine Geriatric Medicine; Visit Provider Family Medicine Geriatric Medicine
DX: M54.6 Pain in thoracic spine (principal)
CPT/HCPCS: 72070

== ENCOUNTER → 2022-06-15 | Outpatient (CLI) | payer MEDICAID, SELFPAY ==
[2022-06-15 13:25] LABS: Absolute Lymphocyte Count 1.42 X10^3/uL (0.83-4.51); Basophil# 0.04 X10^3/uL; Basophil% 0.6 % (0-1); Eosinophil# 0.18 X10^3/uL; Eosinophils% 2.9 % (0-5); Hematocrit 33.9 % (37-47); Hemoglobin 10.9 g/dL (12.0-15.0); Lymphocyte # 1.42 X10^3/ul (0.83-4.51); Lymphocyte % 22.7 % (19-41); Mean Corp Hgb Conc 32.2 g/dL (32-36); Mean Corpuscular Hgb 32.1 pg (27.0-32.0); Mean Corpuscular Volume 99.7 fL (81-99); Mean Platelet Vol. 8.4 fl (6.2-12.0); Monocyte# 0.64 X10^3/uL; Monocyte% 10.2 % (0-10); NRBC Flagged by Analyzer 0 % (0-5); Neutrophil # 3.95 X10^3/uL (2.7-7.7); Neutrophil % 63.3 % (47-70); Platelet Count 399 K/mm3 (150-450); RBC Distribution Width CV 14.6 % (11.6-14.6); RBC Distribution Width SD 52.7 fl (35.1-43.9); White Blood Count 6.3 K/mm3 (4.4-11.0)
[2022-06-15 13:56] LABS: Vitamin D,25 Hydroxy 14.6 ng/mL
[2022-06-15 14:01] LABS: ALB/GLOB Ratio 1.1 RATIO (0.9-2.4); AST(SGOT) 11 U/L (15-37); Alanine Aminotransfer ALT/SGPT 27 U/L (13-56); Albumin, Serum 3.5 g/dL (3.2-5.0); Alkaline Phosphatase 99 U/L (45-117); Anion Gap 5 (5-15); BUN 16 mg/dL (7-18); BUN/Creat Ratio 13.2 RATIO (10-20); Chloride 108 mmol/L (98-107); Creatinine, Serum 1.21 mg/dL (0.55-1.02); EST Glomerular Filtration Rate 49 mL/min (>60); Est Glom Filt Rate - Afr Amer 59 mL/min (>60); Globulin 3.1 g/dL (2.2-4.2); Glucose 166 mg/dL (74-106); Potassium 4.3 mmol/L (3.5-5.1); Protein, Total 6.6 g/dL (6.4-8.2); Sodium Level 140 mmol/L (136-145); Thyroid Stim Hormone (TSH) 1.33 uIU/mL (0.358-3.74)
== END | disposition home or self-care (01) ==
LOC: POLAB3 08:55
PROVIDERS: PCP Family Medicine Geriatric Medicine; Visit Provider Family Medicine Geriatric Medicine
DX: I10 Essential (primary) hypertension (principal); E11.9 Type 2 diabetes mellitus without complications; E55.9 Vitamin D deficiency, unspecified
CPT/HCPCS: 36415; 80053; 82306; 84443; 85025

== ENCOUNTER → 2022-07-19 | Outpatient (CLI) | payer MEDICAID, SELFPAY ==
--- NOTE | 2022-07-19 09:56 | RAD_ITS ---
STUDY: X-RAY - CERVICAL SPINE REASON FOR EXAM: Female, 57 years old. Neck pain. TECHNIQUE: 4 view(s) of the cervical spine were obtained. COMPARISON: December 07, 2021. FINDINGS: Osteopenia. Normal anterior atlantoaxial articulation. Normal odontoid process. Normal cervical lordosis. Diffuse uncovertebral and facet sclerosis. Diffuse intervertebral disc space narrowing from C3-4 to C7-T1 with osteophyte formation most marked at C4-5, C5-6 and C6-7. Normal soft tissues. RAD/Cerv Spine 2 or 3 Views IMPRESSION: Stable osteopenia with diffuse moderate to marked cervical spondylosis. No acute abnormality, evidence of erosive changes or fusion. Electronically Signed: Eric Villaseñor, at 12:15 EST ,
== END | disposition home or self-care (01) ==
LOC: RAD 09:54
PROVIDERS: PCP Family Medicine Geriatric Medicine; Referring Provider Family Medicine Geriatric Medicine; Visit Provider Family Medicine Geriatric Medicine
DX: M54.12 Radiculopathy, cervical region (principal)
CPT/HCPCS: 72040

== ENCOUNTER → 2022-09-07 | Outpatient (CLI) | payer MEDICAID, SELFPAY ==
--- NOTE | 2022-09-07 10:22 | RAD_ITS ---
INDICATION: PAIN EXAMINATION/TECHNIQUE: X-RAY - LEFT XR Foot Min 3 Views 3 VIEWS COMPARISON: None. FINDINGS: SOFT TISSUES: No soft tissue swelling or gas. No radiopaque foreign body. BONES/JOINTS: No acute fracture or subluxation.. Normal alignment. Preservation of the joint space.. No sclerotic or destructive changes observed. Small plantar calcaneal spur and posterior enthesophyte RAD/Foot min 3 Views IMPRESSION: No acute fracture or other significant bony pathology Electronically Signed: Oliverio Frederick MD at 19:09 EST ,
== END | disposition home or self-care (01) ==
PROVIDERS: PCP Family Medicine Geriatric Medicine; Visit Provider Family Medicine Geriatric Medicine
DX: M79.672 Pain in left foot (principal)
CPT/HCPCS: 73630

== ENCOUNTER → 2022-09-14 | Outpatient (CLI) | payer MEDICAID, SELFPAY ==
[2022-09-14 14:03] LABS: Absolute Lymphocyte Count 1.66 X10^3/uL (0.83-4.51); Absolute Neutrophil Count 8.7 X10^3/uL (2.0-7.7); Basophil# 0.02 X10^3/uL; Basophil% 0.2 % (0-1); Eosinophil# 0.02 X10^3/uL; Eosinophils% 0.2 % (0-5); Hematocrit 33.5 % (37-47); Lymphocyte # 1.66 X10^3/ul (0.83-4.51); Lymphocyte % 14.6 % (19-41); Mean Corp Hgb Conc 32.8 g/dL (32-36); Mean Corpuscular Hgb 32.1 pg (27.0-32.0); Mean Corpuscular Volume 97.7 fL (81-99); Monocyte# 0.88 X10^3/uL; Monocyte% 7.7 % (0-10); NRBC Flagged by Analyzer 0 % (0-5); Neutrophil # 8.65 X10^3/uL (2.7-7.7); Neutrophil % 75.9 % (47-70); Platelet Count 407 K/mm3 (150-450); RBC Distribution Width CV 14.1 % (11.6-14.6); Red Blood Count 3.43 M/mm3 (4.2-5.4); White Blood Count 11.4 K/mm3 (4.4-11.0)
[2022-09-14 14:12] LABS: ALB/GLOB Ratio 1.5 RATIO (0.9-2.4); AST(SGOT) 8 U/L (15-37); Alanine Aminotransfer ALT/SGPT 27 U/L (13-56); Albumin, Serum 3.6 g/dL (3.2-5.0); Alkaline Phosphatase 71 U/L (45-117); Anion Gap 7 (5-15); BUN 39 mg/dL (7-18); BUN/Creat Ratio 28.9 RATIO (10-20); Calcium,Total 9.3 mg/dL (8.5-10.1); Chloride 105 mmol/L (98-107); Creatinine, Serum 1.35 mg/dL (0.55-1.02); EST Glomerular Filtration Rate 43 mL/min (>60); Est Glom Filt Rate - Afr Amer 52 mL/min (>60); Ferritin 291 ng/mL (8-252); Globulin 2.4 g/dL (2.2-4.2); Glucose 253 mg/dL (74-106); Iron 98 ug/dL (50-170); Iron Binding Capacity,Total 299 ug/dL (250-450); PERCENT IRON SATURATION 32.8 % (15.0-55.0); Potassium 4.5 mmol/L (3.5-5.1); Sodium Level 137 mmol/L (136-145); Thyroid Stim Hormone (TSH) 0.24 uIU/mL (0.358-3.74)
== END | disposition home or self-care (01) ==
LOC: POLAB3 09:02
PROVIDERS: Internal Medicine Hematology & Oncology; PCP Family Medicine Geriatric Medicine; Visit Provider Family Medicine Geriatric Medicine
DX: I10 Essential (primary) hypertension (principal); E11.9 Type 2 diabetes mellitus without complications
CPT/HCPCS: 80053; 82728; 83540; 83550; 84443; 85025

== ENCOUNTER → 2022-09-27 | Outpatient (CLI) | payer MEDICAID, SELFPAY | END | disposition home or self-care (01) | PROVIDERS: PCP Family Medicine Geriatric Medicine; Visit Provider Family Medicine Geriatric Medicine | DX: R68.83 Chills (without fever) (principal); Z20.822 Contact with and (suspected) exposure to COVID-19 | CPT/HCPCS: 87635; 87804; 87807; C9803; U0003; U0005 ==

== ENCOUNTER → 2022-11-23 | Outpatient (CLI) | payer MEDICAID, SELFPAY ==
--- NOTE | 2022-11-23 07:45 | MRI_ITS ---
EXAM: MR LEFT LOWER EXTREMITY WITHOUT INTRAVENOUS CONTRAST, FOOT CLINICAL INDICATION: LEFT FOOT ENTHESOPATHY TECHNIQUE: Multiplanar and multisequence MR images of the left foot without intravenous contrast. This report was created using [employer] report [employer] technology. COMPARISON: None. FINDINGS: LIGAMENTS: MEDIAL COLLATERAL: Unremarkable. Intact. LATERAL COLLATERAL: Unremarkable. Intact. LISFRANC: Unremarkable. Intact. TENDONS: FLEXOR: Unremarkable. Intact. EXTENSOR: Unremarkable. Intact. PERONEAL: Unremarkable. Intact. TIBIALIS ANTERIOR: Unremarkable. Intact. TIBIALIS POSTERIOR: Unremarkable. Intact. MUSCLES: Unremarkable. No edema or myositis. FLUID: Unremarkable. No joint effusion. PLANTAR FASCIA: Unremarkable. Intact. BONES/JOINTS: Unremarkable. Normal forefoot alignment. No fracture. No bone marrow edema. No joint effusion. OTHER SOFT TISSUES: Unremarkable. MRI/Lower Ext/No Jt/w/o IMPRESSION: Unremarkable MRI of the left foot. Electronically Signed: Spike Liao MD at 21:49 EDT ,
== END | disposition home or self-care (01) ==
LOC: MRI 07:29
PROVIDERS: PCP Family Medicine Geriatric Medicine; Referring Provider Podiatrist; Visit Provider Podiatrist
DX: M77.52 Other enthesopathy of left foot and ankle (principal)
CPT/HCPCS: 73718

== ENCOUNTER → 2022-12-02 | Outpatient (CLI) | payer MEDICAID, SELFPAY ==
[2022-12-02 09:17] LABS: Absolute Lymphocyte Count 1.59 X10^3/uL (0.83-4.51); Absolute Neutrophil Count 3.1 X10^3/uL (2.0-7.7); Basophil# 0.03 X10^3/uL; Basophil% 0.6 % (0-1); Eosinophil# 0.18 X10^3/uL; Eosinophils% 3.3 % (0-5); Hematocrit 34.8 % (37-47); Hemoglobin 11.3 g/dL (12.0-15.0); Lymphocyte # 1.59 X10^3/ul (0.83-4.51); Lymphocyte % 29.3 % (19-41); Mean Corp Hgb Conc 32.5 g/dL (32-36); Mean Corpuscular Hgb 32.5 pg (27.0-32.0); Mean Platelet Vol. 8.1 fl (6.2-12.0); Monocyte# 0.48 X10^3/uL; Monocyte% 8.8 % (0-10); NRBC Flagged by Analyzer 0 % (0-5); Neutrophil # 3.12 X10^3/uL (2.7-7.7); Neutrophil % 57.4 % (47-70); Platelet Count 321 K/mm3 (150-450); RBC Distribution Width CV 14.5 % (11.6-14.6); RBC Distribution Width SD 53.2 fl (35.1-43.9); Red Blood Count 3.48 M/mm3 (4.2-5.4); White Blood Count 5.4 K/mm3 (4.4-11.0)
[2022-12-02 09:43] LABS: Erythrocyte Sedimentation Rate 6 mm/hr (0-30)
[2022-12-02 09:58] LABS: ALB/GLOB Ratio 1.2 RATIO (0.9-2.4); AST(SGOT) 23 U/L (15-37); Alanine Aminotransfer ALT/SGPT 42 U/L (13-56); Albumin, Serum 3.6 g/dL (3.2-5.0); Alkaline Phosphatase 87 U/L (45-117); Anion Gap 2 (5-15); BUN 28 mg/dL (7-18); BUN/Creat Ratio 23.7 RATIO (10-20); CRP < 2.90 mg/L (0.0-3.0); Calcium,Total 9.1 mg/dL (8.5-10.1); Chloride 106 mmol/L (98-107); Creatinine, Serum 1.18 mg/dL (0.55-1.02); EST Glomerular Filtration Rate 50 mL/min (>60); Est Glom Filt Rate - Afr Amer 61 mL/min (>60); Globulin 2.9 g/dL (2.2-4.2); Glucose 153 mg/dL (74-106); LDH 97 U/L (84-246); Potassium 4.8 mmol/L (3.5-5.1); Protein, Total 6.5 g/dL (6.4-8.2); Sodium Level 137 mmol/L (136-145)
[2022-12-02 10:21] LABS: HIV - WCH Non-Reactive (Nonreactive)
[2022-12-05 15:08] LABS: Anti-Centromere B Ab <0.2 AI (0.0-0.9); Anti-Chromatin <0.2 AI (0.0-0.9); Anti-Jo <0.2 AI (0.0-0.9); Anti-Scleroderma-70 AB <0.2 AI (0.0-0.9); Endomysial Antibody IgA Negative (Negative); RNP Ab <0.2 AI (0.0-0.9); SJOGREN'S Anti-SS-A test < 0.2 AI (0.0-0.9); SJOGREN'S Anti-SS-B test < 0.2 AI (0.0-0.9); Smith Ab <0.2 AI (0.0-0.9)
[2022-12-05 15:39] LABS: Anti-dsDNA Ab <1 IU/mL (0-9)
[2022-12-05 15:40] LABS: Immunoglobulin A 121 mg/dL (87-352); t-Transglutaminase IgA <2 U/mL (0-3)
[2022-12-06 13:07] LABS: Albumin 3.6 g/dL (2.9-4.4); Alpha-1-Globulins 0.2 g/dL (0.0-0.4); Alpha-2-Globulins 0.9 g/dL (0.4-1.0); Cytoplasmic Ab (C-ANCA) <1:20 titer (Neg:<1:20); Gamma Globulin 0.5 g/dL (0.4-1.8); HEPATITIS B SURFACE AG Negative (Negative); Hep C Antibodies Non Reactive (Non Reactive); Hepatitis A IgM Antibody Negative (Negative); Hepatitis B Core AB IgM Negative (Negative); Immunoglobulin A 114 mg/dL (87-352); Immunoglobulin G 407 mg/dL (586-1602); Immunoglobulin M 29 mg/dL (26-217); PROEL- TOTAL PROTEIN 6.1 g/dL (6.0-8.5)
[2022-12-06 14:42] LABS: IMMUNOFIXATION RESULT,S Comment: (.); Immunoglobulin E 40 IU/mL (6-495); Perinuclear Ab (P-ANCA) <1:20 titer (Neg:<1:20)
== END | disposition home or self-care (01) ==
PROVIDERS: PCP Family Medicine Geriatric Medicine; Referring Provider Internal Medicine Gastroenterology; Visit Provider Internal Medicine Gastroenterology
DX: D64.9 Anemia, unspecified (principal)
CPT/HCPCS: 36415; 80053; 80074; 82784; 82785; 83516; 83615; 84165; 85025; 85652; 86140; 86225; 86235; 86255; 86256; 86334; 86703

== ENCOUNTER → 2022-12-06 | Outpatient (CLI) | payer MEDICAID, SELFPAY ==
--- NOTE | 2022-12-06 11:35 | BI_ITS ---
MAMMOGRAPHY - BILATERAL SCREENING 3-D TOMOSYNTHESIS REASON FOR EXAM: Female, 57 years old. Routine screening PERTINENT HISTORY: Grandmother with breast cancer.. TECHNIQUE: 2-D mammograms and 3-D Tomosynthesis of the breast (s) were performed. CAD was performed. COMPARISON: 10/05/2021 FINDINGS: The breast composition is composed of scattered fibroglandular density. Scattered benign calcifications are seen. No dense spiculated masses or suspicious microcalcifications are identified. No architectural distortion is identified. There is no skin thickening or retraction. There has been no significant change since the prior study. BI/SCRN MAMM (CAD)W/ELAINA BILAT IMPRESSION: No mammographic signs of malignancy. Routine yearly mammograms recommended. ASSESSMENT CATEGORY: BIRADS Category 1: Negative. A letter regarding these results will be sent to the patient by the facility within 30 days. FOLLOW UP RECOMMENDATION: Yearly follow up mammogram recommended. (A) Approximately 10% of breast cancers are not detected by mammography. A normal mammogram should not delay biopsy of a clinically suspicious abnormality. Electronically Signed: Edgar Oneal MD at 13:47 EDT ,
== END | disposition home or self-care (01) ==
LOC: OPBI 11:34
PROVIDERS: PCP Family Medicine Geriatric Medicine; Referring Provider Internal Medicine Hematology & Oncology; Visit Provider Internal Medicine Hematology & Oncology
DX: Z12.31 Encounter for screening mammogram for malignant neoplasm of breast (principal)
CPT/HCPCS: 77063; 77067

== ENCOUNTER → 2022-12-20 | Outpatient (CLI) | payer MEDICAID, SELFPAY ==
[2022-12-20 16:48] LABS: Absolute Neutrophil Count 3.2 X10^3/uL (2.0-7.7); Basophil# 0.03 X10^3/uL; Basophil% 0.5 % (0-1); Eosinophil# 0.19 X10^3/uL; Eosinophils% 3.4 % (0-5); Hematocrit 32.8 % (37-47); Hemoglobin 10.5 g/dL (12.0-15.0); Lymphocyte % 28.5 % (19-41); Mean Platelet Vol. 8.4 fl (6.2-12.0); Monocyte# 0.57 X10^3/uL; Monocyte% 10.2 % (0-10); NRBC Flagged by Analyzer 0 % (0-5); Neutrophil # 3.21 X10^3/uL (2.7-7.7); Neutrophil % 57.2 % (47-70); Platelet Count 365 K/mm3 (150-450); RBC Distribution Width SD 55.4 fl (35.1-43.9); Red Blood Count 3.28 M/mm3 (4.2-5.4); White Blood Count 5.6 K/mm3 (4.4-11.0)
[2022-12-20 16:56] LABS: Protein, Urine (Random) < 6.0 mg/dL (<11.9)
[2022-12-20 17:36] LABS: ALB/GLOB Ratio 1.2 RATIO (0.9-2.4); AST(SGOT) 15 U/L (15-37); Alanine Aminotransfer ALT/SGPT 31 U/L (13-56); Albumin, Serum 3.4 g/dL (3.2-5.0); Alkaline Phosphatase 82 U/L (45-117); Anion Gap 3 (5-15); BUN 16 mg/dL (7-18); BUN/Creat Ratio 12.5 RATIO (10-20); Calcium,Total 8.6 mg/dL (8.5-10.1); Chloride 108 mmol/L (98-107); Cholesterol 127 mg/dL (200); Creatinine, Serum 1.28 mg/dL (0.55-1.02); EST Glomerular Filtration Rate 46 mL/min (>60); Est Glom Filt Rate - Afr Amer 55 mL/min (>60); Globulin 2.8 g/dL (2.2-4.2); Glucose 135 mg/dL (74-106); High Density Lipoprotein 62 mg/dL; Phosphorus 2.9 mg/dL (2.5-4.9); Potassium 4.6 mmol/L (3.5-5.1); Protein, Total 6.2 g/dL (6.4-8.2); Sodium Level 136 mmol/L (136-145); Thyroid Stim Hormone (TSH) 0.73 uIU/mL (0.358-3.74); Triglycerides 132 mg/dL; Very Low Density Lipoprotein 26 mg/dL (5-40)
== END | disposition home or self-care (01) ==
LOC: POLAB3 15:27
PROVIDERS: Nurse Practitioner Family; PCP Family Medicine Geriatric Medicine; Visit Provider Internal Medicine Nephrology
DX: I10 Essential (primary) hypertension (principal); E11.65 Type 2 diabetes mellitus with hyperglycemia; E55.9 Vitamin D deficiency, unspecified; E78.5 Hyperlipidemia, unspecified
CPT/HCPCS: 80053; 80061; 82306; 82570; 84100; 84156; 84443; 85025

== ENCOUNTER → 2023-03-22 | Outpatient (CLI) | payer MEDICAID, SELFPAY ==
--- NOTE | 2023-03-22 09:27 | RAD_ITS ---
INDICATION: LOW BACK PAIN EXAMINATION/TECHNIQUE: X-RAY - XR Spine Lumbar Min 4 Views COMPARISON: FINDINGS: VERTEBRAE: Preserved vertebral body height. No fracture. No spondylolisthesis. Preservation of the normal lumbar lordosis. No significant facet arthropathy. DISCS: There is mild multilevel osteophyte formation. There is mild disc space narrowing at L5/S1. INCLUDED ABDOMEN: Included bowel gas pattern is non-obstructive. RAD/L/S Spine Min 4 Views IMPRESSION: Mild degenerative changes. Electronically Signed: Ashish Rolle, at 10:17 EDT ,
[2023-03-22 12:18] LABS: Absolute Lymphocyte Count 1.34 X10^3/uL (0.83-4.51); Absolute Neutrophil Count 2.5 X10^3/uL (2.0-7.7); Basophil# 0.05 X10^3/uL; Basophil% 1.1 % (0-1); Eosinophil# 0.28 X10^3/uL; Hematocrit 34.9 % (37-47); Hemoglobin 10.9 g/dL (12.0-15.0); Lymphocyte # 1.34 X10^3/ul (0.83-4.51); Lymphocyte % 28.9 % (19-41); Mean Corp Hgb Conc 31.2 g/dL (32-36); Mean Corpuscular Hgb 31.9 pg (27.0-32.0); Mean Platelet Vol. 8.8 fl (6.2-12.0); Monocyte# 0.43 X10^3/uL; Monocyte% 9.3 % (0-10); NRBC Flagged by Analyzer 0 % (0-5); Neutrophil # 2.52 X10^3/uL (2.7-7.7); Neutrophil % 54.3 % (47-70); Platelet Count 382 K/mm3 (150-450); RBC Distribution Width CV 13.9 % (11.6-14.6); RBC Distribution Width SD 52.8 fl (35.1-43.9); Red Blood Count 3.42 M/mm3 (4.2-5.4); White Blood Count 4.6 K/mm3 (4.4-11.0)
[2023-03-22 12:47] LABS: ALB/GLOB Ratio 1.2 RATIO (0.9-2.4); AST(SGOT) 14 U/L (15-37); Alanine Aminotransfer ALT/SGPT 31 U/L (13-56); Albumin, Serum 3.5 g/dL (3.2-5.0); Alkaline Phosphatase 107 U/L (45-117); Anion Gap 5 (5-15); BUN 22 mg/dL (7-18); BUN/Creat Ratio 17.6 RATIO (10-20); Calcium,Total 8.7 mg/dL (8.5-10.1); Chloride 107 mmol/L (98-107); Cholesterol 131 mg/dL (200); Creatinine, Serum 1.25 mg/dL (0.55-1.02); EST Glomerular Filtration Rate 47 mL/min (>60); Est Glom Filt Rate - Afr Amer 57 mL/min (>60); Globulin 2.9 g/dL (2.2-4.2); Glucose 129 mg/dL (74-106); High Density Lipoprotein 57 mg/dL; Potassium 4.6 mmol/L (3.5-5.1); Protein, Total 6.4 g/dL (6.4-8.2); Sodium Level 136 mmol/L (136-145); Thyroid Stim Hormone (TSH) 1.01 uIU/mL (0.358-3.74); Triglycerides 116 mg/dL; Very Low Density Lipoprotein 23 mg/dL (5-40)
[2023-03-22 16:11] LABS: Hemoglobin A1c 6.9 % (3.8-5.6)
== END | disposition home or self-care (01) ==
PROVIDERS: PCP Family Medicine Geriatric Medicine; Referring Provider Family Medicine Geriatric Medicine; Visit Provider Family Medicine Geriatric Medicine
DX: I10 Essential (primary) hypertension (principal); E11.65 Type 2 diabetes mellitus with hyperglycemia; M54.50 Low back pain, unspecified
CPT/HCPCS: 36415; 72110; 80053; 80061; 83036; 84443; 85025

== ENCOUNTER → 2023-04-12 | Outpatient (CLI) | payer MEDICAID, SELFPAY ==
[2023-04-12 17:20] LABS: Absolute Lymphocyte Count 1.41 X10^3/uL (0.83-4.51); Absolute Neutrophil Count 3.9 X10^3/uL (2.0-7.7); Basophil# 0.05 X10^3/uL; Basophil% 0.8 % (0-1); Eosinophil# 0.23 X10^3/uL; Eosinophils% 3.7 % (0-5); Hematocrit 35.1 % (37-47); Hemoglobin 10.9 g/dL (12.0-15.0); Lymphocyte # 1.41 X10^3/ul (0.83-4.51); Lymphocyte % 22.9 % (19-41); Mean Corp Hgb Conc 31.1 g/dL (32-36); Mean Corpuscular Hgb 31.7 pg (27.0-32.0); Mean Platelet Vol. 8.4 fl (6.2-12.0); Monocyte# 0.52 X10^3/uL; Monocyte% 8.4 % (0-10); NRBC Flagged by Analyzer 0 % (0-5); Neutrophil # 3.93 X10^3/uL (2.7-7.7); Neutrophil % 63.7 % (47-70); Platelet Count 341 K/mm3 (150-450); RBC Distribution Width CV 14.3 % (11.6-14.6); RBC Distribution Width SD 53.4 fl (35.1-43.9); Red Blood Count 3.44 M/mm3 (4.2-5.4); White Blood Count 6.2 K/mm3 (4.4-11.0)
[2023-04-12 18:11] LABS: ALB/GLOB Ratio 1.1 RATIO (0.9-2.4); AST(SGOT) 18 U/L (15-37); Alanine Aminotransfer ALT/SGPT 41 U/L (13-56); Albumin, Serum 3.4 g/dL (3.2-5.0); Alkaline Phosphatase 105 U/L (45-117); Amylase 32 U/L (25-115); Anion Gap 7 (5-15); BUN 18 mg/dL (7-18); BUN/Creat Ratio 14.3 RATIO (10-20); CPK Total, Creatine Kinase 55 U/L (26-192); Calcium,Total 8.5 mg/dL (8.5-10.1); Chloride 107 mmol/L (98-107); Creatinine, Serum 1.26 mg/dL (0.55-1.02); EST Glomerular Filtration Rate 46 mL/min (>60); Est Glom Filt Rate - Afr Amer 56 mL/min (>60); Globulin 3.1 g/dL (2.2-4.2); Glucose 246 mg/dL (74-106); Lipase 37 U/L (13-75); Potassium 3.9 mmol/L (3.5-5.1); Protein, Total 6.5 g/dL (6.4-8.2); Sodium Level 136 mmol/L (136-145); Troponin-I HS 4 pg/mL (3.0-54.0)
[2023-04-14 04:07] LABS: Myoglobin, Serum 31 ng/mL (25-58)
== END | disposition home or self-care (01) ==
LOC: POLAB3 16:37
PROVIDERS: PCP Family Medicine Geriatric Medicine; Visit Provider Family Medicine Geriatric Medicine
DX: N18.31 Chronic kidney disease, stage 3a (principal)
CPT/HCPCS: 36415; 80053; 82150; 82550; 83690; 83874; 84484; 85025

== ENCOUNTER 2023-05-07 11:56 | Emergency (ER) | payer MEDICAID, SELFPAY ==
[2023-05-07 11:56] VITALS: BP 196/71; PULSE 113; RESP 16; TEMP 36.3; O2SAT 99; BMI 32.5
--- NOTE | 2023-05-07 12:10 | EDS_ITS ---
HPI History of Present Illness Chief Complaint: Bite Informant: patient Narrative Narrative: 57-year-old female went to a friend's house to give her some food, she bent down and the friend's dog bit her in the left hand sustaining a laceration as a result. It is her friend's pet, she believes it has had its shots and has not been ill. Patient is [id number]. Tetanus Immunization: <5 years ROS ROS ED Constitutional Constitutional ED: Denies chills or fever(s) Musculoskeletal Musculoskeletal: Reports extremity pain; Denies neck pain Integumentary Reports wounds; Denies Abrasions or rash Neurologic Neurologic: Denies paresthesias or weakness [facility] Medical History Abnormal stress test Abrasion Acute kidney injury Ambulates with cane Anemia, chronic renal failure Arthritis Biliary dyskinesia Blackout Cardiology follow-up encounter Chest pain Chronic anemia Constipation COPD (chronic obstructive pulmonary disease) with emphysema COPD exacerbation CPAP (continuous positive airway pressure) dependence CRF (chronic renal failure) Depression Diabetes Diabetes type 2, controlled Dietary restriction Dyslipidemia Easy bruising Encounter for screening for malignant neoplasm of lung in current smoker with 30 pack year history or greater Encounter for screening for malignant neoplasm of lung in former smoker who quit in past 15 years with 30 pack year history or greater Fibroadenoma of left breast Gastric reflux Hemorrhoid High cholesterol History of back problems History of non-ST elevation myocardial infarction (NSTEMI) (01/17/20) History of pain when walking History of stress test Hypertension Hypertension Hypoglycemia Hypothyroidism Insomnia Left arm numbness Left carotid bruit Low iron Microcalcification of left breast on mammogram Nicotine dependence Right lower lobe pneumonia Segmental and somatic dysfunction of lumbar region Segmental and somatic dysfunction of pelvic region Shortness of breath on exertion Sleep apnea Smoker Syncope Thyroid disease Tobacco use disorder, continuous Unstable angina Wears glasses Wears partial dentures Home Medications atorvastatin 40 mg tablet 40 mg PO QHS cholesterol 08/11/14 [History Last Taken 02/17/22] pantoprazole 40 mg tablet,delayed release 40 mg PO BID reflux 05/15/21 [History Last Taken 02/18/22] metformin 500 mg tablet 500 mg PO BID DM 10/05/21 [History Last Taken 02/18/22] doxepin 50 mg capsule 50 mg PO QHS DEPRESSION 02/18/22 [History Last Taken 02/17/22] levothyroxine 50 mcg tablet 50 mcg PO DAILY THYROID 02/18/22 [History Last Taken 02/17/22] lisinopril 2.5 mg tablet 2.5 mg PO DAILY BP 02/18/22 [History Last Taken 02/18/22] paroxetine HCl 20 mg tablet 20 mg PO DAILY DEPRESSION 02/18/22 [History Last Taken 02/18/22] ferrous sulfate 325 mg (65 mg iron) tablet (Iron (ferrous sulfate)) 325 mg PO DAILY 08/17/22 [History Last Taken Unknown] pioglitazone 30 mg tablet 30 mg PO DAILY 10/12/22 [History Last Taken Unknown] amoxicillin 875 mg-potassium clavulanate 125 mg tablet 875 mg (0.875 x 875-125 mg) PO Q12H #20 TABLETS 05/07/23 [Rx Last Taken Unknown] Allergy/AdvReac Type Severity Reaction Status Date / Time prochlorperazine edisylate Allergy Severe Rash Verified 05/07/23 11:58 [From Compazine] prochlorperazine maleate Allergy Severe Rash Verified 05/07/23 11:58 [From Compazine] Family History Father Myocardial infarction CVA (cerebral vascular accident) Mother Heart disease Seizures Lung cancer Sister Seizures Grandmother Cancer Grandfather Cancer Aunt Breast cancer Surgical History H/O: hysterectomy heart catheterization History of cardiac catheterization History of carpal tunnel surgery of left wrist History of cholecystectomy (01/17/20) History of esophagogastroduodenoscopy (EGD) History of hysterectomy History of left heart catheterization (02/10/20) history stereotactic biopsy left breast (~12/22/17) Hx laparoscopic cholecystectomy Hx of colonoscopy Hx of sinus surgery Social History household members: none Smoking Status: Current every day smoker tobacco type: cigarettes second hand exposure: No alcohol intake: never substance use type: does not use caffeine: Yes what type of physical activity do you participate in: walking frequency: daily EXAM Physical Exam Const Vital Signs: 05/07/23 11:56 Temperature 97.4 F L Temperature Source Temporal Pulse Rate 113 H Respiratory Rate 16 Blood Pressure 196/71 H Blood Pressure Mean 112 Pulse Ox 99 Oxygen Delivery Method Room Air Positive well nourished and well developed General Appearance ED: well developed and NAD Neck full ROM and supple Back/Spine normal ROM and normal to inspection Extremity full ROM Extremity Narrative: Left hand/wrist: Full range of motion all joints of fingers and wrist, no bony tenderness throughout. Laceration see below. Neuro oriented x3, no focal motor deficits and no sensory deficits noted Sensorium / Orientation: alert Psych mental status grossly normal and thought process normal Skin Skin Narrative: 3.5 cm flap shaped full-thickness clean appearing laceration to the dorsum of the left hand, it is between metacarpals 1 and 2 does not involve the webspace between the thumb and index, and does not progress into fascia. Rashes: no rashes MDM MDM MDM Narrative Medical decision making narrative: This is more like a skin tear, but it is in a flap shaped and involving enough of the dermis that repair is indicated. It is difficult to repair given her fragile skin and the nature of superficial epidermal maceration associated with it. It was pulled together adequately, there was 1 retention suture that was removed. A total of 7 were placed on the left. She will be placed on Augmentin for infection prophylaxis, she does not require an x-ray there is no suspicion for foreign body here or bony fracture, and she is comfortable with all of this plan. She will follow-up. Also advised to have her friend watch the dog for signs of illness. Procedures Lacerations L hand: Length: 3.5 cm Depth: Sub Q Shape: Flap (w/ macerated epidermis/skin tear on flap) Prep: Sterile Conditions and Chlorhexadine Laceration repair: Irrigated Irrigated (ml): 60 Number of Sutures/Kassidy: 7 Suture Information: Ethilon, Simple and 5-0 Comment: flap loosely approximated in order to avoid tearing fragile skin Discharge Plan Triage Chief Complaint: Bite ED Provider: Mumtaz Hernandez Dx/Rx/DC Orders Clinical Impression: Open wound of left hand due to dog bite Instructions: ED Dog Bite, ED Laceration, Hand: All Closures Prescriptions: New amoxicillin-pot clavulanate [amoxicillin-pot clavulanate] 875-125 mg tablet 875 mg PO Q12H Qty: 20 0RF No Action ferrous sulfate [Iron (ferrous sulfate)] 325 mg (65 mg iron) tablet 325 mg PO DAILY pioglitazone 30 mg tablet 30 mg PO DAILY atorvastatin 40 MG tablet 40 mg PO QHS Patient Comments: cholesterol metformin 500 mg Tablet 500 mg PO BID pantoprazole 40 mg tablet,delayed release (DR/EC) 40 mg PO BID doxepin 50 mg capsule 50 mg PO QHS levothyroxine 50 mcg tablet 50 mcg PO DAILY paroxetine HCl 20 mg tablet 20 mg PO DAILY lisinopril 2.5 mg tablet 2.5 mg PO DAILY Primary Care Provider: Bret You Chi Referrals: Bret You Chi, MD [Primary Care Provider] - 10-14 Days suture removal Disposition Disposition: Home, Self Care
[2023-05-07] MEDS: Amox/Clavulanate 875 MG Tablet PO (12:15)
[2023-05-07] MEDS: Lidocaine 1% (20 ml mdv) 20 ML Vial INFILT (12:16)
== END 2023-05-07 12:57 | disposition home or self-care (01) ==
PROVIDERS: Emergency Provider Emergency Medicine; PCP Family Medicine Geriatric Medicine; Visit Provider Emergency Medicine
DX: S61.412A Laceration without foreign body of left hand, initial encounter (principal); J43.9 Emphysema, unspecified; E11.22 Type 2 diabetes mellitus with diabetic chronic kidney disease; W54.0XXA Bitten by dog, initial encounter; I25.2 Old myocardial infarction; I12.9 Hypertensive chronic kidney disease with stage 1 through stage 4 chronic kidney disease, or unspecified chronic kidney disease; N18.9 Chronic kidney disease, unspecified; E78.00 Pure hypercholesterolemia, unspecified; F17.210 Nicotine dependence, cigarettes, uncomplicated; Z79.84 Long term (current) use of oral hypoglycemic drugs; Z79.899 Other long term (current) drug therapy
CPT/HCPCS: 12002; 99284

== ENCOUNTER → 2023-06-20 | Outpatient (CLI) | payer MEDICAID, SELFPAY ==
[2023-06-20 12:38] LABS: Absolute Lymphocyte Count 1.19 X10^3/uL (0.83-4.51); Absolute Neutrophil Count 3.7 X10^3/uL (2.0-7.7); Basophil# 0.05 X10^3/uL; Basophil% 0.9 % (0-1); Eosinophil# 0.28 X10^3/uL; Eosinophils% 4.9 % (0-5); Hematocrit 36.3 % (37-47); Hemoglobin 11.2 g/dL (12.0-15.0); Lymphocyte # 1.19 X10^3/ul (0.83-4.51); Lymphocyte % 20.7 % (19-41); Mean Corp Hgb Conc 30.9 g/dL (32-36); Mean Corpuscular Hgb 31.5 pg (27.0-32.0); Mean Corpuscular Volume 102.3 fL (81-99); Mean Platelet Vol. 8.6 fl (6.2-12.0); Monocyte# 0.49 X10^3/uL; Monocyte% 8.5 % (0-10); NRBC Flagged by Analyzer 0 % (0-5); Neutrophil # 3.72 X10^3/uL (2.7-7.7); Neutrophil % 64.7 % (47-70); Platelet Count 359 K/mm3 (150-450); RBC Distribution Width CV 14.4 % (11.6-14.6); RBC Distribution Width SD 54.6 fl (35.1-43.9); Red Blood Count 3.55 M/mm3 (4.2-5.4); White Blood Count 5.8 K/mm3 (4.4-11.0)
[2023-06-20 12:57] LABS: ALB/GLOB Ratio 1.1 RATIO (0.9-2.4); AST(SGOT) 13 U/L (15-37); Alanine Aminotransfer ALT/SGPT 25 U/L (13-56); Albumin, Serum 3.4 g/dL (3.2-5.0); Alkaline Phosphatase 86 U/L (45-117); Anion Gap 5 (5-15); BUN 19 mg/dL (7-18); BUN/Creat Ratio 14.1 RATIO (10-20); Calcium,Total 8.7 mg/dL (8.5-10.1); Chloride 108 mmol/L (98-107); Cholesterol 116 mg/dL (200); Creatinine, Serum 1.35 mg/dL (0.55-1.02); EST Glomerular Filtration Rate 43 mL/min (>60); Est Glom Filt Rate - Afr Amer 52 mL/min (>60); Globulin 3.1 g/dL (2.2-4.2); Glucose 153 mg/dL (74-106); High Density Lipoprotein 53 mg/dL; Potassium 4.5 mmol/L (3.5-5.1); Protein, Total 6.5 g/dL (6.4-8.2); Sodium Level 137 mmol/L (136-145); Thyroid Stim Hormone (TSH) 0.87 uIU/mL (0.358-3.74); Triglycerides 160 mg/dL; Very Low Density Lipoprotein 32 mg/dL (5-40)
[2023-06-20 13:06] LABS: Microalbumin,Random Urine < 5.0 mg/L (NO RANGE EST.)
[2023-06-20 13:38] LABS: Hemoglobin A1c 6.7 % (3.8-5.6)
== END | disposition home or self-care (01) ==
LOC: POLAB3 10:21
PROVIDERS: PCP Family Medicine Geriatric Medicine; Visit Provider Family Medicine Geriatric Medicine
DX: I10 Essential (primary) hypertension (principal); E11.65 Type 2 diabetes mellitus with hyperglycemia; E78.5 Hyperlipidemia, unspecified
CPT/HCPCS: 36415; 80053; 80061; 82043; 83036; 84443; 85025

== ENCOUNTER → 2023-09-19 | Outpatient (CLI) | payer MEDICAID, SELFPAY ==
--- OUTSIDE RECORDS SUMMARY | 2023-09-19 10:51 | XMS RPT_ITS | CCD ---
Author Name Unknown Address [address] [place] [address] Organization [facility] Care Team Providers Care Sow Manager Name Role Phone PROVIDER, UNKNOWN Unavailable Unavailable ANANTH, YEFRI-CHI Unavailable Unavailable GRACE MCHUGH Unavailable Unavailable WM CHING Referring Unavailable CALEB WHEELER Attending Unavailable Ananth, Yefri Chi Primary Care Provider Unavailmicha You MD, Yefri Chi Primary Care Provider ANANTH, YEFRI CHI Primary Care Unavailable TIFFANIE KING Attending Unavailable ANANTH, YEFRI CHI Primary Care Unavailable TIFFANIE KING Referring Unavailable TIFFANIE KING Attending Unavailable ANANTH, YEFRI CHI Primary Care Unavailable LOLI LONDNO Attending Unavailable LOLI LONDON Admitting Unavailable Allergies Allergy Classification Reported Allergen(s) Allergy Type Date of Onset Reaction(s) Facility (4 sources) Prochlorperazine Drug Allergy 2 Other (See Comments) [facility] Medications Current Medications Medication Drug Class(es) Dates Sig (Normalized) Sig (Original) atorvastatin 40 mg oral tablet (4 sources) HMG-CoA Reductase Inhibitor take 1 tablet by mouth once daily atorvastatin (LIPITOR) 40 MG tablet Take 1 tablet by mouth daily. 0 Active lisinopril 5 mg oral tablet (4 sources) Angiotensin Converting Enzyme Inhibitor take 1 tablet by mouth once daily lisinopril (PRINIVIL,ZESTRIL) 5 MG tablet Take 1 tablet by mouth daily. 0 Active metFORMIN hydrochloride 500 mg oral tablet (4 sources) Biguanide take 2 tablets by mouth twice daily at mealtime, then take 1 tablet by mouth in the morning, then take 2 tablets by mouth in the evening metformin (GLUCOPHAGE) 500 MG tablet Take 2 tablets by mouth 2 times daily (with meals). 1 tab in am, 2 tabs in pm 0 Active naproxen 500 mg oral tablet (4 sources) Nonsteroidal Anti-inflammatory Drug take 1 tablet by mouth twice daily at mealtime naproxen (NAPROSYN) 500 MG tablet Take 1 tablet by mouth 2 times daily (with meals). 0 Active PARoxetine hydrochloride 20 mg oral tablet (4 sources) Serotonin Reuptake Inhibitor take 1 tablet by mouth once daily in the morning PARoxetine (PAXIL) 20 MG tablet Take 1 tablet by mouth every morning. 0 Active rosuvastatin calcium 40 mg oral tablet (4 sources) HMG-CoA Reductase Inhibitor take 0.5 tablet by mouth once daily rosuvastatin (CRESTOR) 40 MG tablet Take 0.5 tablets by mouth daily. 0 Active Completed/Discontinued Medications Medication Drug Class(es) Dates Sig (Normalized) Sig (Original) acetaminophen 500 mg oral tablet (1 source) Start: 06-07-2020 End: 06-06-2020 acetaminophen (TYLENOL) tablet 1,000 mg Problems Active Problems Problem Classification Problem Date Documented Da te Episodic/Chronic Chronic obstructive pulmonary disease and bronchiectasis (2 sources) Chronic obstructive pulmonary disease, unspecified; Translations: [Chronic obstructive pulmonary disease, unspecified] Onset: 08-04-2017 Chronic Diabetes mellitus without complication (3 sources) Type 2 diabetes mellitus without complications; Translations: [Type 2 diabetes mellitus without complications] Onset: 08-04-2017 Chronic Disorders of lipid metabolism (2 sources) Hyperlipidemia, unspecified; Translations: [Hyperlipidemia, unspecified] Onset: 08-04-2017 Chronic Essential hypertension (3 sources) Essential (primary) hypertension; Translations: [Essential (primary) hypertension] Onset: 08-04-2017 Chronic Mood disorders (2 sources) Major depressive disorder, single episode, unspecified; Translations: [Major depressive disorder, single episode, unspecified] Onset: 08-04-2017 Other aftercare (1 source) 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; Translations: [assisted (current) use of oral hypoglycemic drugs] Onset: 03-12-2023 Episodic Other injuries and conditions due to external causes (1 source) Injury of right ankle; Translations: [Unspecified injury of right ankle, initial encounter] 05-31-2023 Episodic Other injuries and conditions due to external causes (1 source) Unspecified injury of right ankle, initial encounter; Translations: [Unspecified injury of right ankle, initial encounter] Onset: 05-31-2023 Episodic Other upper respiratory infections (2 sources) Chronic sinusitis, unspecified; Translations: [Chronic sinusitis, unspecified] Onset: 08-04-2017 Chronic Residual codes; unclassified (1 source) Left before being seen; Translations: [Procedure and treatment not carried out due to patient leaving prior to being seen by health care provider] Episodic Residual codes; unclassified (1 source) Procedure and treatment not carried out due to patient leaving prior to being seen by health care provider; Translations: [Procedure and treatment not carried out due to patient leaving prior to being seen by health care provider] Onset: 03-12-2023 Episodic Spondylosis; intervertebral disc disorders; other back problems (2 sources) Other cervical disc degeneration, unspecified cervical region; Translations: [Other cervical disc degeneration, unsp cervical region] Onset: 08-04-2017 Chronic Substance-related disorders (1 source) Nicotine dependence, cigarettes, uncomplicated; Translations: [Nicotine dependence, cigarettes, uncomplicated] Onset: 03-12-2023 Chronic Past or Other Problems Problem Classification Problem Date Documented Date Episodic/Chronic Intracranial injury (4 sources) Epidural hemorrhage without loss of consciousness, initial encounter; Translations: [Epidural hemorrhage with loss of consciousness of unspecified duration, initial encounter] Onset: 08-04-2017 Episodic Nonspecific chest pain (3 sources) Chest pain, unspecified; Translations: [Musculoskeletal chest pain] Onset: 08-04-2017 Episodic Other connective tissue disease (1 source) Pain in right arm; Translations: [Right arm pain] Episodic Other nervous system disorders (2 sources) Paresthesia of skin; Translations: [Paresthesia of skin] Onset: 08-04-2017 Episodic Results Test Name Value Interpretation Reference Range Facil ity Vital Signs Date Time Vital Sign Value Performing Clinician Facility 03-11-2023 [id number] Body height 152.4 cm Loli London MD Work Phone: [facility] 03-11-2023 21:21-0400 Body mass index (BMI) [Ratio] 32.42 kg/m2 Loli London MD Work Phone: [facility] 03-11-2023 21:21-0400 Body temperature 98.2 [degF] Loli London MD Work Phone: [facility] 07-15-2023 21:21-0400 Body weight 75.3 kg Loli London MD Work Phone: [facility] 03-11-2023 21:21-0400 Diastolic blood pressure 61 mm[Hg] Loli London MD Work Phone: [facility] 03-11-2023 21:21-0400 Heart rate 95 /min Lloi London MD Work Phone: [facility] 03-11-2023 21:21-0400 Respiratory rate 18 /min Loli London MD Work Phone: [facility] 03-11-2023 21:21-0400 SaO2% (BldA) [Mass fraction] 95 % Loli London MD Work Phone: [facility] 03-11-2023 21:21-0400 Systolic blood pressure 137 mm[Hg] Loli London MD Work Phone: [facility] 06-07-2020 00:55-0400 Body Temperature 98.4 [degF] [facility] 06-07-2020 00:55-0400 BP Diastolic 52 mm[Hg] [facility] 06-07-2020 00:55-0400 BP Systolic 104 mm[Hg] [facility] 06-07-2020 00:55-0400 Pulse (Heart Rate) 95 /min [facility] 06-07-2020 00:55-0400 Pulse Oximetry 98 % [facility] 06-07-2020 00:55-0400 Respiratory Rate 20 /min [facility] 06-06-2020 23:03-0400 BMI (Body Mass Index) 30.47 kg/m2 [facility] 06-06-2020 23:03-0400 Body weight 70.76 kg [facility] 06-06-2020 23:03-0400 [facility] 02-28-2020 18:44-0400 BMI (Body Mass Index) 30.62 kg/m2 Jose Barry [facility] 02-28-2020 18:44-0400 Body Temperature 98.01 [degF] [facility] 02-28-2020 18:44-0400 Body weight 71.12 kg [facility] 02-28-2020 18:44-0400 BP Diastolic 59 mm[Hg] [facility] 02-28-2020 18:44-0400 BP Systolic 142 mm[Hg] [facility] 02-28-2020 18:44-0400 Height 152.4 cm [facility] 02-28-2020 18:44-0400 Pulse (Heart Rate) 100 /min [facility] 02-28-2020 18:44-0400 Pulse Oximetry 98 % [facility] 02-28-2020 18:44-0400 Respiratory Rate 20 /min [facility] Encounters Encounter Date Encounter Type Care Provider Facility Start: 05-31-2023 End: 06-01-2023 ambulatory YEFRI CHI [employer] [facility] Start: 05-31-2023 End: 05-31-2023 ambulatory YEFRI CHI ANANTH [facility] Start: 05-31-2023 End: 05-31-2023 Subsequent hospital visit by physician Tiffanie King APRN, CNP Work Phone: [facility] [place] Procedures Date Procedure Procedure Detail Performing Clinician Start: 05-31-2023 Radex ankle complete minimum 3 views Tiffanie King APRN, CNP Work Phone: Start: 05-31-2023 Adult depression screening assessment Tiffanie King APRN, CNP Work Phone: Start: 06-07-2020 Radiologic exam ches t single view Andrew Wolfe Work Phone: Start: 06-06-2020 Standard ECG Andrew Wolfe Work Phone: Start: 06-06-2020 Antibody screen WM Pepe RTHUR Plan of Treatment Date Care Activity Detail Author Start: 04-24-2030 Administration of diphtheria + tetanus + acellular pertussis vaccine DTAP/TDAP/TD VACCINE (4 - Td or Tdap) [facility] Start: 05-31-2024 Depression screening using PHQ-9 (Patient Health Questionnaire 9) score DEPRESSION SCREENING [facility] Start: 04-28-2023 Influenza vaccination given INFLUENZA VACCINE (#1) [facility] Start: 06-22-2022 COVID-19 VACCINE (3 - Booster for Moderna series) COVID-19 VACCINE (3 - Booster for Moderna series) [facility] Start: 06-22-2022 COVID-19 VACCINE (3 - Moderna series) COVID-19 VACCINE (3 - Moderna series) [facility] Start: 06-06-2021 Screening for malignant neoplasm of lung CT SCAN CHEST (LOW DOSE) [facility] Start: 04-28-2020 Influenza vaccination given [facility] Start: 07-24-2017 Zoster vaccine hzv live for subcutaneous use ZOSTER (SHINGLES) VACCINE (2 of 3) [facility] Start: 2015 Colonoscopy COLONOSCOPY 10 YR [facility] Start: 2015 Screening for malignant neoplasm of colon [facility] Start: 2015 Zoster vaccine hzv live for subcutaneous use ZOSTER (SHINGLES) VACCINE (1 of 2) [facility] Start: 2010 Screening for malignant neoplasm of colon [facility] Start: 2005 Screening for malignant neoplasm of breast MAMMOGRAM [facility] Start: 2005 Screening mammography MAMMOGRAM [facility] Start: 1984 Zoster vaccine hzv live for subcutaneous use ZOSTER (SHINGLES) VACCINE (1 of 2) [facility] Start: 1983 ANNUAL WELLNESS VISIT ANNUAL WELLNESS VISIT [facility] Start: 1977 Adult depression screening assessment DEPRESSION SCREENING [facility] Start: 1977 Depression screening using PHQ-9 (Patient Health Questionnaire 9) score DEPRESSION SCREENING [facility] Start: 1976 Administration of diphtheria + tetanus + acellular pertussis vaccine DTAP/TDAP/TD VACCINE (1 - Tdap) [facility] Start: 1976 Diphtheria + pertussis + tetanus vaccine (product) DTAP/TDAP/TD VACCINE (1 - Tdap) [facility] Start: 1965 Hepatitis C screening HEPATITIS C SCREENING [facility] Start: 1965 Injection of vitamin B12 B12 [facility] Standard ECG EKG 12 lead - Osorio nd to Physician ECG GALILEA 06/06/2020 11:07 PM EDT [facility] End: 03-30-2021 Venous Duplex Upper Ext Unilateral Venous Duplex Upper Ext Unilateral [facility] GALILEA Right arm pain 1 Occurrences starting 02/28/2020 until 03/30/2021 [facility] Immunizations Immunization Date Immunization Notes Care Provider Russ gutierrez 04-27-2022 influenza virus vaccine, unspecified formulation Loli London MD Work Phone: [facility] 05-29-2017 zoster vaccine, unspecified formulation Tiffanie King APRN, CNP Work Phone: [facility] 09-04-2014 influenza virus vaccine, unspecified formulation Jose Asha [facility] Payers Date Payer Category Payer Medicaid [employer] [place] [employer] [id number] 2022-Present [phone] [address] [place] [address] Medicaid [id number] 2020 Unknown [id number] 2017 Medicaid [facility] [id number] 2017-Present [address] [place] [address] Medicaid [id number] 1965 Unknown [id number] 1965 Unknown [id number] 1965 Unknown [id number] 1965 Unknown [id number] 1965 Unknown [id number] Unknown Unknown [id number] Social History Date Type Detail Facility Start: 02-28-2020 End: 05-31-2023 Tobacco smoking status NHIS Current every day smoker [facility] History of tobacco use [facility] Start: 02-28-2020 End: 06-06-2020 Cigarettes smoked current (pack per day) - Reported [facility] Start: 02-28-2020 End: 05-31-2023 Tobacco use and exposure Never used [facility] Start: 02-28-2020 End: 05-31-2023 Alcohol intake Current non-drinker of alcohol (finding) [facility] Start: 1965 Sex Assigned At Not on file [facility] Start: 03-01-2023 End: 03-11-2023 Exposure to SARS-CoV-2 (event) Not sure [facility] Start: 06-06-2020 Tobacco use panel [facility] Start: 1965 Sex Assigned At Female [facility] Start: 05-31-2023 Gender identity Identifies as female gender (finding) [facility] Start: 05-31-2023 Sexual orientation Heterosexual (finding) [facility] Emergency department Note 03-11-2023 Loli London MD - 03/11/2023 11:42 PM EDT Note Date & Type Note Facility 03-11-2023 Physician Emergency department Note I did not evaluate this patient who left without being seen after triage Loli London MD 03/11/232341 [facility] Work Phone: Emergency department Note 03-11-2023 Loli London MD - 03/11/2023 11:42 PM Marycarmen Day RN - 03/11/2023 11:41 PM Debra Starks RN - 03/11/2023 11:40 PM Mae Infante RN - 03/11/2023 9:18 PM EDT Note Date & Type Note Facility 03-11-2023 Emergency department Note I did not evaluate this patient who left without being seen after triage Loli London MD 03/11/232341 No answer from the lobby. Pt LWBS after triage. Called x1 no answer PT reports that she was stung by something but not sure what. States that her mother and sister are allergic to bees and she thinks that she is too. States that she was dizzy and had difficulty breathing at the time. Small red spot noted to left upper arm with pen outlining the area upon arrival. PT reports that it still tamez and feels like there is still a stinger in her arm. A&O x3 Skin warm dry and pink. Resp easy even and unlabored, pt able to speak in full uninterrupted sentences without difficulty. NAD noted. documented in this encounter [facility] Emergency department Note 03-11-2023 Marycarmen Rosas RN - 03/11/2023 11:41 PM EDT Note Date & Type Note Facility 03-11-2023 Emergency department Note No answer from the lobby. Pt LWBS after triage. [facility] Emergency department Note 03-11-2023 Debra Schroeder RN - 03/11/2023 11:40 PM EDT Note Date & Type Note Facility 03-11-2023 Emergency department Note Called x1 no answer [facility] Emergency department Triage note 03-11-2023 Mae Gee RN - 03/11/2023 9:18 PM EDT Note Date & Type Note Facility 03-11-2023 Emergency department Triage note PT reports that she was stung by something but not sure what. States that her mother and sister are allergic to bees and she thinks that she is too. States that she was dizzy and had difficulty breathing at the time. Small red spot noted to left upper arm with pen outlining the area upon arrival. PT reports that it still tamez and feels like there is still a stinger in her arm. A&O x3 Skin warm dry and pink. Resp easy even and unlabored, pt able to speak in full uninterrupted sentences without difficulty. NAD noted. [facility] Evaluation note Note Date & Type Note Facility documented in this encounter [facility] Evaluation note Note Date & Type Note Facility documented in this encounter [facility] Summary Purpose Family History No Family History Records FoundNo Family History Records FoundNo Family History Records Found Advance Directives No Advanced Directives Records FoundDocuments on File Type Date Recorded Patient Housekeeping Staff Expl anation Advance Directives and Living Will Power of Workday Manager Documents on File Type Date Recorded Patient Housekeeping Staff Expl anation Advance Directives and Living Will Power of Workday Manager Reason for Referral Status Reason Specialty Diagnoses / Procedures Referred By Contact Referred To Contact Incomplete Heart and Vascul ar Diagnostics Diagnoses Right arm pain Procedures Venous Duplex Upper Ext Unilateral Lisa Anderson APRN [facility] [address] [place] [address] Discharge Instructions * Instructions* Lisa Anderson APRN [facility] - 02/28/2020 Please apply warm compresses to your right upper extremity as needed for pain. Please alternate taking Tylenol and ibuprofen as needed for pain. Please keep your scheduled appointment on Monday at 9:00 AM (please arrive 15 minutes early) for your right upper extremity venous duplex study. documented in this encounter* Attachments The following attachments cannot be sent through Care Everywhere. * Chest Pain: Musculoskeletal (Canadian Bulgarian) documented in this encounter Assessments Diagnosis Right arm pain Pain in limb Diagnosis Musculoskeletal chest pain Other chest pain Additional Source Comments INFORMATION SOURCE (unrecogn ized section and content) DATE CREATED AUTHOR AUTHOR'S ORGANIZ ATION 11/05/2020 [facility] DATE CREATED AUTHOR AUTHOR'S ORGANIZ ATION 06/04/2023 [employer] Reason for Visit (unrecogniz ed section and content) Reason Comments Chest Pain Shortness of Breath Reason Comments [employer] Care Teams (unrecognized sec tion and content) Sow Manager Relationship Specialty Start Date End Date Yefri You Chi, MD PCP - General 02/25/18 FOR RECORDS PERTAINING TO PATIENTS WHO ARE OR HAVE BEEN ENROLLED IN A CHEMICAL DEPENDENCY/SUBSTANCEABUSE PROGRAM, SOME INFORMATION MAY BE OMITTED. This clinical summary was aggregated from multiple sources. Caution should be exercised in using it in the provision of clinical care. This summary normalizes information from multiple sources, and as a consequence, information in this document may materially change the coding, format and clinical context of patient data. In addition, data may be omitted in some cases. CLINICAL DECISIONS SHOULD BE BASED ON THE PRIMARY CLINICAL RECORDS. [facility]. provides no warranty or guarantee of the accuracy or completeness of information in this document.
[2023-09-19 11:28] LABS: Absolute Lymphocyte Count 1.42 X10^3/uL (0.83-4.51); Absolute Neutrophil Count 3.4 X10^3/uL (2.0-7.7); Basophil# 0.04 X10^3/uL; Basophil% 0.7 % (0-1); Eosinophil# 0.24 X10^3/uL; Eosinophils% 4.2 % (0-5); Hematocrit 34.1 % (37-47); Hemoglobin 10.2 g/dL (12.0-15.0); Lymphocyte # 1.42 X10^3/ul (0.83-4.51); Lymphocyte % 25.1 % (19-41); Mean Corp Hgb Conc 29.9 g/dL (32-36); Mean Corpuscular Hgb 30.6 pg (27.0-32.0); Mean Corpuscular Volume 102.4 fL (81-99); Mean Platelet Vol. 8.7 fl (6.2-12.0); Monocyte# 0.49 X10^3/uL; Monocyte% 8.7 % (0-10); NRBC Flagged by Analyzer 0 % (0-5); Neutrophil # 3.44 X10^3/uL (2.7-7.7); Neutrophil % 60.8 % (47-70); Platelet Count 370 K/mm3 (150-450); RBC Distribution Width CV 14.9 % (11.6-14.6); RBC Distribution Width SD 55.9 fl (35.1-43.9); Red Blood Count 3.33 M/mm3 (4.2-5.4); White Blood Count 5.7 K/mm3 (4.4-11.0)
[2023-09-19 12:04] LABS: ALB/GLOB Ratio 1.5 RATIO (0.9-2.4); AST(SGOT) 18 U/L (15-37); Alanine Aminotransfer ALT/SGPT 29 U/L (13-56); Albumin, Serum 3.8 g/dL (3.2-5.0); Alkaline Phosphatase 92 U/L (45-117); Anion Gap 6 (5-15); BUN 28 mg/dL (7-18); BUN/Creat Ratio 19.6 RATIO (10-20); Chloride 111 mmol/L (98-107); Cholesterol 140 mg/dL (200); Creatinine, Serum 1.43 mg/dL (0.55-1.02); EST Glomerular Filtration Rate 40 mL/min (>60); Est Glom Filt Rate - Afr Amer 48 mL/min (>60); Globulin 2.5 g/dL (2.2-4.2); Glucose 106 mg/dL (74-106); High Density Lipoprotein 71 mg/dL; Protein, Total 6.3 g/dL (6.4-8.2); Sodium Level 139 mmol/L (136-145); Thyroid Stim Hormone (TSH) 1.06 uIU/mL (0.358-3.74); Triglycerides 108 mg/dL; Very Low Density Lipoprotein 22 mg/dL (5-40)
[2023-09-19 12:17] LABS: Hemoglobin A1c 6.2 % (3.8-5.6)
== END | disposition home or self-care (01) ==
LOC: LAB 10:22
PROVIDERS: PCP Family Medicine Geriatric Medicine; Referring Provider Family Medicine Geriatric Medicine; Visit Provider Family Medicine Geriatric Medicine
DX: I10 Essential (primary) hypertension (principal); E11.65 Type 2 diabetes mellitus with hyperglycemia; E78.5 Hyperlipidemia, unspecified
CPT/HCPCS: 36415; 80053; 80061; 83036; 84443; 85025

== ENCOUNTER → 2023-12-12 | Outpatient (CLI) | payer MEDICAID, SELFPAY ==
[2023-12-12 15:04] LABS: Albumin, Serum 3.6 g/dL (3.2-5.0); BUN 26 mg/dL (7-18); BUN/Creat Ratio 18.3 RATIO (10-20); Calcium,Total 8.7 mg/dL (8.5-10.1); Chloride 110 mmol/L (98-107); Creatinine, Serum 1.42 mg/dL (0.55-1.02); EST Glomerular Filtration Rate 40 mL/min (>60); Est Glom Filt Rate - Afr Amer 49 mL/min (>60); Glucose 130 mg/dL (74-106); Phosphorus 2.8 mg/dL (2.5-4.9); Potassium 4.7 mmol/L (3.5-5.1); Sodium Level 138 mmol/L (136-145)
[2023-12-12 15:11] LABS: Protein, Urine (Random) < 6.0 mg/dL (<11.9)
== END | disposition home or self-care (01) ==
LOC: POLAB3 13:36
PROVIDERS: PCP Family Medicine Geriatric Medicine; Visit Provider Internal Medicine Nephrology
DX: E11.22 Type 2 diabetes mellitus with diabetic chronic kidney disease (principal); N18.31 Chronic kidney disease, stage 3a
CPT/HCPCS: 36415; 80069; 82570; 84156

== ENCOUNTER → 2023-12-13 | Outpatient (CLI) | payer MEDICAID, SELFPAY ==
[2023-12-13 11:37] LABS: Absolute Lymphocyte Count 1.04 X10^3/uL (0.83-4.51); Absolute Neutrophil Count 2.4 X10^3/uL (2.0-7.7); Basophil# 0.04 X10^3/uL; Basophil% 0.9 % (0-1); Eosinophil# 0.26 X10^3/uL; Eosinophils% 6.1 % (0-5); Hematocrit 33.1 % (37-47); Hemoglobin 10.2 g/dL (12.0-15.0); Lymphocyte # 1.04 X10^3/ul (0.83-4.51); Lymphocyte % 24.6 % (19-41); Mean Corp Hgb Conc 30.8 g/dL (32-36); Mean Corpuscular Hgb 31.6 pg (27.0-32.0); Mean Corpuscular Volume 102.5 fL (81-99); Mean Platelet Vol. 8.6 fl (6.2-12.0); Monocyte# 0.44 X10^3/uL; Monocyte% 10.4 % (0-10); NRBC Flagged by Analyzer 0 % (0-5); Neutrophil # 2.44 X10^3/uL (2.7-7.7); Neutrophil % 57.8 % (47-70); Platelet Count 357 K/mm3 (150-450); RBC Distribution Width CV 14.9 % (11.6-14.6); RBC Distribution Width SD 56.2 fl (35.1-43.9); Red Blood Count 3.23 M/mm3 (4.2-5.4); White Blood Count 4.2 K/mm3 (4.4-11.0)
[2023-12-13 11:57] LABS: ALB/GLOB Ratio 1.3 RATIO (0.9-2.4); AST(SGOT) 20 U/L (15-37); Alanine Aminotransfer ALT/SGPT 36 U/L (13-56); Albumin, Serum 3.6 g/dL (3.2-5.0); Alkaline Phosphatase 95 U/L (45-117); Anion Gap 4 (5-15); BUN 27 mg/dL (7-18); BUN/Creat Ratio 21.3 RATIO (10-20); Calcium,Total 8.7 mg/dL (8.5-10.1); Chloride 110 mmol/L (98-107); Cholesterol 141 mg/dL (200); Creatinine, Serum 1.27 mg/dL (0.55-1.02); EST Glomerular Filtration Rate 46 mL/min (>60); Est Glom Filt Rate - Afr Amer 56 mL/min (>60); Globulin 2.8 g/dL (2.2-4.2); Glucose 103 mg/dL (74-106); High Density Lipoprotein 65 mg/dL; Potassium 4.7 mmol/L (3.5-5.1); Protein, Total 6.4 g/dL (6.4-8.2); Sodium Level 138 mmol/L (136-145); Thyroid Stim Hormone (TSH) 0.85 uIU/mL (0.358-3.74); Triglycerides 70 mg/dL; Very Low Density Lipoprotein 14 mg/dL (5-40)
[2023-12-13 12:17] LABS: Hemoglobin A1c 5.9 % (3.8-5.6)
== END | disposition home or self-care (01) ==
LOC: POLAB3 10:13
PROVIDERS: PCP Family Medicine Geriatric Medicine; Visit Provider Family Medicine Geriatric Medicine
DX: I10 Essential (primary) hypertension (principal); E03.9 Hypothyroidism, unspecified
CPT/HCPCS: 36415; 80053; 80061; 83036; 84443; 85025

== ENCOUNTER → 2023-12-14 | Outpatient (CLI) | payer MEDICAID, SELFPAY | END | disposition home or self-care (01) | LOC: PSN 12:00 | PROVIDERS: PCP Family Medicine Geriatric Medicine; Referring Provider Family Medicine Geriatric Medicine; Visit Provider Family Medicine Geriatric Medicine | DX: R68.83 Chills (without fever) (principal) | CPT/HCPCS: 87631 ==

== ENCOUNTER → 2023-12-25 | Outpatient (CLI) | payer MEDICAID, SELFPAY ==
--- NOTE | 2023-12-25 07:07 | BI_ITS ---
MAMMOGRAPHY - BILATERAL SCREENING REASON FOR EXAM: Female, 58 years old. Routine annual screening examination. PERTINENT HISTORY: Grandmother with breast cancer. Prior left stereotactic breast biopsy. TECHNIQUE: Digital bilateral breast elaina (3D mammographic acquisition) in the CC and MLO projections. 2-D mediolateral oblique (MLO) and craniocaudad (CC) views of both breasts were obtained. CAD: Full Field Digital Mammography with Computer Added Detection was performed. COMPARISON: Comparison is made with prior study of December 06, 2022 and October 05, 2021. FINDINGS: Breast Composition: There are scattered areas of fibroglandular density. There are no dominant masses or suspicious calcifications. Once again, a tissue clip marker is seen in the deep upper axillary region of the left breast. No other significant abnormalities are identified. There has been no significant change since the prior study. BI/SCRN MAMM (CAD)W/ELAINA BILAT IMPRESSION: Stable bilateral screening mammogram. Yearly follow-up mammogram recommended. (A) ASSESSMENT CATEGORY: BIRADS Category 2: Benign. A letter regarding these results will be sent to the patient by the facility within 30 days. Approximately 10% of breast cancers are not detected by mammography. A normal mammogram should not delay biopsy of a clinically suspicious abnormality. [id number] Electronically Signed: Agus Ruelas MD at 9:36 EDT ,
== END | disposition home or self-care (01) ==
LOC: OPBI 07:07
PROVIDERS: PCP Family Medicine Geriatric Medicine; Referring Provider Internal Medicine Hematology & Oncology; Visit Provider Internal Medicine Hematology & Oncology
DX: Z12.31 Encounter for screening mammogram for malignant neoplasm of breast (principal)
CPT/HCPCS: 77063; 77067

== ENCOUNTER → 2024-01-09 | Outpatient (CLI) | payer MEDICAID, SELFPAY ==
--- NOTE | 2024-01-09 12:31 | CT_ITS ---
STUDY: LOW DOSE CT LUNG CANCER SCREENING REASON FOR EXAM: Female, 58 years old. Lung cancer screening -- and gt;60 pk yr hx;former smoker;asymptomatic RADIATION DOSAGE (If Supplied By Facility): CTDIvol = ( 2.01 ) mGy, DLP = ( 58.16 ) mGycm TECHNIQUE: No contrast was administered. Low dose technique was utilized (average mAS-38 and kVp 120). 1.25 mm axial source images with a slice interval of 1.25-mm were reconstructed in lung windows. 2.5 mm axial source images with a slice interval of 2.5-mm were reconstructed in lung windows. 5.0 mm axial source images with a slice interval of 5.0-mm were reconstructed in soft tissue windows. COMPARISON: Comparison is made with prior study of December 06, 2022. NODULES: No suspicious nodules are seen. Emphysema: Stable linear scarring in the anteromedial aspect of the right middle lobe as well as in the lung bases. Endobronchial lesion: Unremarkable Aorta: Mild degree of atherosclerotic plaque formation of the aortic arch. CORONARY ARTERIES: Coronary artery calcification is not seen. Heart: Unremarkable Pulmonary artery: Unremarkable Mediastinal nodes: Small benign-appearing mediastinal lymph nodes. Other chest and abdominal findings: CT/Low Dose CT Lung Screening IMPRESSION: Lung-RADS category 2 - Continue annual screening with LDCT in 12 months. IMPORTANT NOTES FOR USE: ACR Lung-RADS Version 1.1 Assessment Categories Release Date: 2018 Category: Coded 0-4 bases on nodule(s) with highest degree of suspicion. Negative screen is defined as categories 1 and 2; a positive screen is defined as categories 3 and 4. Category 3 and 4A nodules that are unchanged on interval CT should be coded as category 2, and individuals returned to screening in 12 months. Category 4X: Category 3 or 4 nodules with additional imaging findings that increase the suspicion of lung cancer, such as spiculation, GGN that doubles in size in 1 year, enlarged lymph notes, etc. Category Modifiers: S (significant finding unrelated to lung cancer) Electronically Signed: Agus Ruelas MD at 13:30 EDT ,
== END | disposition home or self-care (01) ==
LOC: CT 12:31
PROVIDERS: PCP Family Medicine Geriatric Medicine; Referring Provider Nurse Practitioner Family; Visit Provider Nurse Practitioner Family
DX: Z12.2 Encounter for screening for malignant neoplasm of respiratory organs (principal); Z87.891 Personal history of nicotine dependence
CPT/HCPCS: 71271

== ENCOUNTER 2024-02-27 12:20 | Day surgery (SDC) | payer MEDICAID, SELFPAY ==
[2024-02-27] VITALS (8 sets, daily range): BP systolic 120–140; BP diastolic 56–67; PULSE 74–96; RESP 16–18; TEMP 36.4–37.2; O2SAT 98–100; BMI 31.6
--- NOTE | 2024-02-27 | EGD_PTH ---
PATIENT: FLORINDA LOPEZ LOC: EN U#:[id number] AGE/SX: 58/F ROOM: RE02/27/[address]: Dr. Adan Bhatti DO : 1965 BED: DIS: 02/27/2024 SPEC #: [id number] RECD: 02/27/24 17:27 STATUS: EILEEN JIMBO #: [id number] SHARON: 02/27/24 00:[address]: Adan Bhatti DEPT: SURGICAL PATHOLOGY RECD BY: Velia Rome ENTERED: 02/28/24 07:50 SP TYPE: EGD BIOPSY JOLANTA DR: Dr. Bret You MD Tissues: Duodenum, NOS Procedures: Surgery Specimen Level IV HEADER OPERATION: EGD with biopsy PRE-OP DIAGNOSIS: Anemia TISSUE SUBMITTED: Duodenum biopsy MICROSCOPIC DIAGNOSIS Duodenum, biopsy: Fragments of small intestinal mucosa, no pathologic diagnosis. KRISTY/ 03/01/2024 MICROSCOPIC DESCRIPTION Slides are reviewed. GROSS DESCRIPTION Received in fixative is one container labeled with the patient's name and designated Duodenum biopsy. The specimen consists of multiple irregular fragments of light renee soft tissue that in aggregate measure 1.5 x 0.5 x 0.1 cm. The specimen is totally submitted in one cassette. KRISTY/ 02/28/2024 TC:4 CPT:06334
[2024-02-27] MEDS: Lactated Ringers 1,000 ML 15 ML IV (12:39)
--- NOTE | 2024-02-27 12:59 | PCM.PRE.AN2 ---
ASA Classification* ASA Classification ASA Classification: 2 Assessment & Plan Anesthesia* Anesthesia Assessment Anesthesia Assessment: Discussed sedation and/or anesthesia options, risks, benefits, and alternatives with patient/parents/legal guardian/POA. Questions invited. The patient/parents/legal guardian/POA seems to understand and agrees to proceed with anesthesia plan. Reviewed the physical assessment, medical history, allergy history and patient home medications list prior to surgery/procedure/anesthetic and documented any changes. Performed airway and anesthesia risk assessments. Anesthesia Type Anesthesia Type: MAC History Source History Obtained from:: Patient and Chart Anesthesia Focused Assessment* Temperature: 99 F Pulse Rate: 96 Blood Pressure: 140/67 Respiratory Rate: 16 Pulse Ox: 100 Oxygen Delivery Method: Room Air Airway Assessment Mouth opens: >3 cm Mallampati Score: IV Teeth Condition: Missing (Patient is missing her front lower incisors.) Neck Range of motion (ROM): Full ROM Pertinent Findings EKG Pertinent Findings:: February 18, 2022. Sinus rhythm with primary AV block. ECHO Pertinent Findings:: March 2019 ejection fraction 65% Cath Results Pertinent Findings:: December 2019. Ejection fraction 60%. Normal coronaries. Consults Pertinent Findings:: May 08, 2020 seen by Toni. Chest pain evaluation noted normal coronaries on cardiac cath. Patient is to continue her isosorbide. Focused Labs Anesthesia Preop lab: CBC WBC 5.4 K/mm3 (4.4-11.0) 02/20/24 07:38 RBC 3.26 M/mm3 (4.2-5.4) L 02/20/24 07:38 Hgb 10.3 g/dL (12.0-15.0) L 02/20/24 07:38 Hct 32.7 % (37-47) L 02/20/24 07:38 Plt Count 391 K/mm3 (150-450) 02/20/24 07:38 CHEMISTRY Potassium 4.7 mmol/L (3.5-5.1) 12/13/23 10:14 Sodium 138 mmol/L (136-145) 12/13/23 10:14 Magnesium 2.0 mg/dL (1.6-2.6) 02/20/22 04:29 Phosphorus 2.8 mg/dL (2.5-4.9) 12/12/23 13:37 BUN 27 mg/dL (7-18) H 12/13/23 10:14 Creatinine 1.27 mg/dL (0.55-1.02) H 12/13/23 10:14 Glucose 103 mg/dL (74-106) 12/13/23 10:14 POC Glucose 115 mg/dL (74-106) H 02/19/22 21:45 TSH 0.85 uIU/mL (0.358-3.74) 12/13/23 10:14 COAG PT 12.4 SECONDS (11.7-14.9) 01/16/20 09:21 Pre-Assessment Diagnosis/Proposed Procedure Planned Operative Procedure(s): EGD Anesthesia History 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 When Was Last Pacemaker Check QUESTION #4 FULL TEXT: You/Your Family Experience fever (hyperthermia) with Anesthesia Last Oral Intake Last Oral intake: Last Oral Intake NPO since Meds taken in AM with sips of water? 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 Female Yes 02/19/24 15:25 HX of Motion Sickness No 02/19/24 15:25 HX of N/V After Surgery No 02/19/24 15:25 Non-Smoker Yes 02/19/24 15:25 Duration of Surgery greater No 02/19/24 15:25 than 60 minutes Number of Risk Factors 2 02/19/24 15:25 PONV Score Moderate Risk 02/19/24 15:25 Height & Weight Height & Weight: Anesthesia: Height & Weight Height 5 ft 02/27/24 12:37 Weight: 73.5 kg 02/27/24 12:37 Body Mass Index (BMI) 31.6 02/27/24 12:37 Respiratory Assessment Respiratory Assessment - senior mechanical technician: Respiratory Tract Infection Hx - senior mechanical technician Hx Respiratory Tract Infection No 02/19/24 15:25 STOP Sleep Apnea STOP Sleep Apnea - senior mechanical technician: STOP Sleep Apnea - senior mechanical technician Hx Hypertension Yes: CONTROLLED ON MED 02/20/24 10:55 Hx Sleep Apnea No 02/19/24 15:25 CPAP No 02/19/24 15:25 BIPAP No 02/19/24 15:25 Do you snore loudly (louder No 02/19/24 15:25 than talking or can be heard Do you often feel tired/ No 02/19/24 15:25 fatigued/ sleepy during daytime? Has anyone observed you stop No 02/19/24 15:25 breathing during sleep? STOP Results Negative 02/19/24 15:25 QUESTION #5 FULL TEXT : Do you snore loudly (louder than talking or can be heard through closed doors)? 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 Specify any problems Hx of Preganancy in last 3 No 02/19/24 15:25 Months Nurse Filling Out Transfusion VCHRISTIN 02/19/24 15:25 & Questions: Date: 02/19/24 02/19/24 15:25 Time: 15:26 02/19/24 15:25 Patient unable to answer at this time (ie. confused, unrespo /Reproduction History /Reproductive History - senior mechanical technician: /Reproductive Hx- senior mechanical technician Hx Now No 02/19/24 15:25 Gestational Age (in weeks): EDC: Hx Hx Para Hx Section SAB No 02/19/24 15:25 Active Medications Active Medications: Current Medications Generic Name Dose Route Start Last Admin Trade Name Freq PRN Reason Stop Dose Admin Lactated Ringer's 1,000 mls @ 15 mls/hr 02/27/24 12:30 02/27/24 12:39 IV 15 mls/hr .Q48H RYAN Administration PFSH Medical History Post-menopausal Thyroid disease Anemia Former smoker History of heart attack History of tobacco use Tobacco use disorder, continuous Encounter for screening for malignant neoplasm of lung in current smoker with 30 pack year history or greater Anemia, chronic renal failure Encounter for screening for malignant neoplasm of lung in former smoker who quit in past 15 years with 30 pack year history or greater Acute kidney injury Hypertension CRF (chronic renal failure) Wears glasses Wears partial dentures Abrasion Diabetes Thyroid disease Ambulates with cane Low iron High cholesterol Easy bruising Blackout Dietary restriction Gastric reflux CPAP (continuous positive airway pressure) dependence Shortness of breath on exertion History of pain when walking History of stress test Cardiology follow-up encounter Iron deficiency anemia due to chronic blood loss Sleep apnea Hypertension History of back problems History of non-ST elevation myocardial infarction (NSTEMI) (01/17/20) Biliary dyskinesia Left carotid bruit Chronic anemia Hypoglycemia Syncope Constipation Hemorrhoid Arthritis Chest pain Segmental and somatic dysfunction of pelvic region Segmental and somatic dysfunction of lumbar region COPD exacerbation Fibroadenoma of left breast Microcalcification of left breast on mammogram Diabetes type 2, controlled Insomnia Depression Hypothyroidism Abnormal stress test Unstable angina Left arm numbness Right lower lobe pneumonia COPD (chronic obstructive pulmonary disease) with emphysema Dyslipidemia Home Medications ?Medication ?Instructions ?Recorded ?Last Taken ?Type atorvastatin 40 mg tablet 40 mg PO QHS cholesterol 08/11/14 02/17/22 History pantoprazole 40 mg tablet,delayed 40 mg PO BID reflux 05/15/21 02/27/24 History release metformin 500 mg tablet 500 mg PO BID DM 10/05/21 02/18/22 History doxepin 50 mg capsule 50 mg PO QHS DEPRESSION 02/18/22 02/17/22 History levothyroxine 50 mcg tablet 50 mcg PO DAILY THYROID 02/18/22 02/17/22 History lisinopril 2.5 mg tablet 2.5 mg PO DAILY BP 02/18/22 02/27/24 History ferrous sulfate 325 mg (65 mg 325 mg PO DAILY 08/17/22 Unknown History iron) tablet (Iron (ferrous sulfate)) pioglitazone 30 mg tablet 15 mg PO DAILY 12/25/23 Unknown History ascorbic acid (vitamin C) 500 mg 500 mg PO DAILY 02/19/24 Unknown History tablet,extended release (C Complex) colestipol 1 gram tablet 1 g PO HS PRN diarrhea 02/19/24 Unknown History paroxetine HCl 30 mg tablet 30 mg PO DAILY 02/19/24 02/27/24 History Allergy/AdvReac Type Severity Reaction Status Date / Time prochlorperazine edisylate Allergy Severe Rash Verified 02/27/24 12:31 (From Eloquiiazine) prochlorperazine maleate Allergy Severe Rash Verified 02/27/24 12:31 (From Chartboost) Family History Father Myocardial infarction CVA (cerebral vascular accident) Mother Heart disease Seizures Lung cancer Sister Seizures Grandmother Cancer Grandfather Cancer Aunt Breast cancer Surgical History Hx of arthroscopy of knee History of cardiac catheterization Hx of colonoscopy History of esophagogastroduodenoscopy (EGD) Hx laparoscopic cholecystectomy Hx of sinus surgery History of carpal tunnel surgery of left wrist History of cholecystectomy (01/17/20) History of left heart catheterization (02/10/20) history stereotactic biopsy left breast (~12/22/17) History of hysterectomy H/O: hysterectomy heart catheterization Social History household members: none Smoking Status: Former smoker second hand exposure: No alcohol intake: never substance use type: does not use caffeine: Yes what type of physical activity do you participate in: walking frequency: daily Review of Systems (Anesthesia) ROS Narrative System reviewed and no additional complaints, except as documented.
[2024-02-27 13:48] LABS: Bedside Glucose 109 mg/dL (74-106)
--- NOTE | 2024-02-27 13:57 | PCM.HP.BLA ---
History and Physical Date of Admission: 02/27/24 FLORINDA LOPEZ, is a 58 F who presents to the office today for follow up. PMH DMII, renal failure, HTN, hyperlipidemia, CAD, cerebrovascular disease, COPD, TODD, obesity, smoker since teens. [facility] hematology established for anemia which she first notes when she was with her children. Hematology workup consistent with iron deficiency, B12 deficiency and chronic renal insufficiency. She was started on B12 replacement 2020, erythrocyte stimulating agent . 11.09.22 hematology felt there may be a GI component to her anemia and she was referred. *BGI established 12.02.22 with long-standing history of anemia. BM generally normal with intermittent loose stools. Start colestipol. ? Biochemical CBC, ESR, CMP, LDH, CRP, IgAME, DARREN comp, ANCA, celiac, hepatitis without pertinent abnormality. ? IgG L407. LISSETTE results unclear, repeat in 3-6 months. Contact 12.13.22 to report ongoing anemia and discuss next steps from a GI perspective being EGD, colonoscopy and/or capsule endoscopy. ? Capsule endoscopy 12.26.22 delayed passage into duodenum; mild lymphangiectasia. Recommend gastric emptying study Contact 02.01.23 with capsule results. She does not have gastroparesis symptoms at this time; will reevaluate in the future. OV 8.9.23 Feels she is doing better; loose stools have resolved with use of colestipol. Last hgb 10.5 OV 6.14.24 pt reports that she is feeling well overall and denies GI symptoms of concern at this time. Pt reports BM are normal; denies blood in the stool. Continues with colestipol and pantoprazole. ROS Const Constitutional: Positive for frequent falls; No fatigue, fever(s) or weight change ENT ENT: No difficulty swallowing Gastro GI: No abdominal pain, belching, bloating, change in bowel habits, change in stool character, coffee ground emesis, constipation, cramping, diarrhea, heartburn, difficulty swallowing, feeling full early, excessive flatus, incontinent of stools, Vomiting blood/hematemesis, Blood in stool, loose stools, Black,tarry stools, nausea/dyspepsia, pain with swallowing, vomiting or other Musc Musculoskeletal: Positive for back pain, Arthritis, restless legs and leg pain at night; No joint pain Skin Skin: No yellowing of the eye or itchy eyes Neuro Neurology: Positive for frequent falls and restless legs Psych Psychiatric: Positive for anxiety and Positive for depression Endo Endocrine: No fatigue or weight change Aller/Imm Allergy/Immunologic: No itchy eyes Ronaldo/Lymp Hematologic/Lymphatic: Positive for easy bruising; No easy bleeding Exam Const General: not in acute distress Orientation: oriented x3 HENNM Head: normocephalic and atraumatic Neck Neck: supple and no lymphadenopathy noted Resp Effort & Inspection: normal respiratory effort Auscultation: Bilateral: Clear to Auscultation Cardio Rate: regular rate Rhythm: regular rhythm Heart Sounds: S1 normal and S2 normal Psych Affect: normal affect Speech and Movement: speech and movement normal Assessment and Plan Assessment and Plan (1) Anemia: Status: Deleted Qualifiers: Anemia type: iron deficiency Iron deficiency anemia type: other iron deficiency Qualified Code(s): D50.8 - Other iron deficiency anemias Plan: 57-year-old with diabetes complicated by CKD, hypertension, coronary artery disease status post ST segment elevation OR, anemia of chronic disease, iron deficiency anemia, B12 deficiency. She underwent a colonoscopy approximately 5 years ago did not show any abnormalities. 1.? Anemia of chronic? renal failure, stage III.? Started erythrocyte stimulating agent therapy December 2021 with improvement. 2.? Chronic iron deficiency most likely chronic external GI blood loss with iron studies? inappropriately low for a patient with chronic diseases and chronic renal failure. She will undergo repeat upper endoscopy. She may need a Capsule Endoscopy. She was Tested for Celiac Disease with IgA levels. 3.? B12 deficiency 4.? Primary bone marrow disease is less likely. (2) Diarrhea: Status: Acute Qualifiers: Diarrhea type: due to malabsorption Qualified Code(s): K90.9 - Intestinal malabsorption, unspecified; R19.7 - Diarrhea, unspecified Plan: The differential diagnosis for her diarrhea postcholecystectomy diarrhea, IBS with diarrhea, dumping syndrome secondary to gastroparesis from diabetes. Work-up and stool studies to make sure there is no infectious etiology. We will also start her on colestipol in the morning and give a short course of antibiotics for bacteria overgrowth secondary to lymphangectasia. I have examined the patient and the H&P has been reviewed. There are no clinical changes since date of exam.
--- NOTE | 2024-02-27 14:12 | OP.CCLET_ITS ---
02/27/2024 Bret You MD [address] [place] [address] Re : Upper GI endoscopy procedure for Gisel Bhatti Dear Dr. You This procedure was performed on Tuesday, February 27, 2024. My impressions and recommendations are as follows: Impressions : - Normal esophagus. - Gastric diverticulum. - Scalloped mucosa was found in the duodenum, diagnostic of celiac disease. Biopsied. Recommendations : - Discharge patient to home. - Resume previous diet. - Continue present medications. - Await pathology results. My findings are described in the full procedure note, which is enclosed. If I can be of further assistance, please feel free to contact me at . Sincerely, Adan Bhatti, 02/27/2024 2:11:40 PM This report has been signed electronically.
--- NOTE | 2024-02-27 14:12 | OP.EGD_ITS ---
Patient Name: Gisel Bhatti Procedure Date: 02/27/2024 1:59 PM Date of : 1965 Age: 58 Procedure: Upper GI endoscopy Indications: Epigastric abdominal pain, Iron deficiency anemia Providers: Adan Bhatti DO Referring MD: Adan Bhatti DO Medicines: Monitored Anesthesia Care Patient Profile: This is a 58 year old female. Refer to note in patient chart for documentation of history and physical. Patient has symptoms of acute abdominal cramping and chronic epigastric abdominal pain. Complications: No immediate complications. Procedure: Pre-Anesthesia Assessment: - Prior to the procedure, a History and Physical was performed, and patient medications and allergies were reviewed. The patient is competent. The risks and benefits of the procedure and the sedation options and risks were discussed with the patient. All questions were answered and informed consent was obtained. Patient identification and proposed procedure were verified by the physician in the pre-procedure area. Mental Status Examination: alert and oriented. Airway Examination: normal oropharyngeal airway and neck mobility. Respiratory Examination: clear to auscultation. CV Examination: normal. Prophylactic Antibiotics: The patient does not require prophylactic antibiotics. Prior Anticoagulants: The patient has taken no anticoagulant or antiplatelet agents. ASA Grade Assessment: II - A patient with mild systemic disease. After reviewing the risks and benefits, the patient was deemed in satisfactory condition to undergo the procedure. The anesthesia plan was to use monitored anesthesia care (MAC). Immediately prior to administration of medications, the patient was re-assessed for adequacy to receive sedatives. The heart rate, respiratory rate, oxygen saturations, blood pressure, adequacy of pulmonary ventilation, and response to care were monitored throughout the procedure. The physical status of the patient was re-assessed after the procedure. After obtaining informed consent, the endoscope was passed under direct vision. Throughout the procedure, the patient's blood pressure, pulse, and oxygen saturations were monitored continuously. The was introduced through the mouth, and advanced to the second part of duodenum. The upper GI endoscopy was accomplished without difficulty. The patient tolerated the procedure well. Scope In: 2:03:01 PM Scope Out: 2:07:24 PM Total Procedure Duration Time 0 hours 4 minutes 23 seconds Findings: The examined esophagus was normal. A 8 mm non-bleeding diverticulum was found in the gastric fundus. Diffuse mildly scalloped mucosa was found in the duodenal bulb, in the first portion of the duodenum and in the second portion of the duodenum. Biopsies were taken with a cold forceps for histology. Verification of patient identification for the specimen was done. Estimated blood loss was minimal. Impression: - Normal esophagus. - Gastric diverticulum. - Scalloped mucosa was found in the duodenum, diagnostic of celiac disease. Biopsied. Recommendation: - Discharge patient to home. - Resume previous diet. - Continue present medications. - Await pathology results. Procedure Code(s): --- Professional --- 40745, Esophagogastroduodenoscopy, flexible, transoral; with biopsy, single or multiple CPT copyright 2021 [employer]. All rights reserved. The codes documented in this report are preliminary and upon therapeutic recreation director review may be revised to meet current compliance requirements. Adan Bhatti DO 02/27/2024 2:11:40 PM This report has been signed electronically. Number of Addenda: 0 Note Initiated On: 02/27/2024 1:59 PM
--- NOTE | 2024-02-27 14:14 | PCM.POST.ANE ---
Anesthesia: Postop Eval I Current Vital Signs Temperature: 97.5 F Pulse Rate: 82 Blood Pressure: 132/60 Respiratory Rate: 18 Pulse Ox: 98 Assessment Airway patent: Yes Spontaneous unlabored respirations: Yes Mental status: Awake and Calm nausea: No Vomiting: No Anesthesia Complication: No Fluid Hydration Crystalloid volume administer (ml): 400 Total IV fluid infused: 400 Progress Note Anesthesia document: Postop Eval 1 completed: Yes
--- NOTE | 2024-02-27 16:55 | PCM.POSTANE2 ---
Anesthesia Postop Eval I Sum Postop Eval Completion status Anesthesia document: Postop Eval 1 completed: Yes Anesthesia Postop Eval I Summary Anesthesia Postop Eval I Summary: Anesthesia Postop Eval I: Assessment Summary Airway patent Yes 02/27/24 14:18 [email or web address] Spontaneous unlabored Yes 02/27/24 14:18 [email or web address] respirations Mental status Awake,Calm 02/27/24 14:18 [email or web address] nausea No 02/27/24 14:18 [email or web address] Vomiting No 02/27/24 14:18 [email or web address] Anesthesia Postop Eval I: Fluid Summary Crystalloid volume administer 400 02/27/24 14:18 [email or web address] (ml) Colloids volume administered ( ml) Blood Product volume administered (ml) Total IV fluid infused 400 02/27/24 14:18 [email or web address] Anesthesia Postop Eval I: Summary Notes Anesthesia Complication No 02/27/24 14:18 [email or web address] Anesthesia Complication Comment: Post-operative progress note Anesthesia: Postop Eval II Evaluation Mental status: Awake and Calm Pain Level: 0 nausea: No Vomiting: No Complications Anesthesia Complication: No
== END 2024-02-27 14:54 | disposition home or self-care (01) ==
LOC: EN 12:20 → AC 12:22
PROVIDERS: PCP Family Medicine Geriatric Medicine; Referring Provider Family Medicine Geriatric Medicine; Visit Provider Internal Medicine Gastroenterology
PROC: 0DJ08ZZ Inspection of Upper Intestinal Tract, Via Natural or Artificial Opening Endoscopic (ICD-10-PCS; CPT 43235; principal; 2024-02-27 13:25)
DX: D50.8 Other iron deficiency anemias (principal); J44.9 Chronic obstructive pulmonary disease, unspecified; K57.90 Diverticulosis of intestine, part unspecified, without perforation or abscess without bleeding; K90.0 Celiac disease; E78.5 Hyperlipidemia, unspecified; I25.10 Atherosclerotic heart disease of native coronary artery without angina pectoris; R19.7 Diarrhea, unspecified
CPT/HCPCS: 43239; 82962; 88305; J2405

== ENCOUNTER 2024-03-14 13:29 | Emergency (ER) | payer MEDICAID, SELFPAY ==
[2024-03-14 13:30] VITALS: BP 148/68; PULSE 105; RESP 100; TEMP 36.5; O2SAT 21; BMI 33.3
--- NOTE | 2024-03-14 13:42 | EKG12_ITS ---
Test Reason : CP Blood Pressure : / mmHG Vent. Rate : 103 BPM Atrial Rate : 103 BPM P-R Int : 196 ms QRS Dur : 078 ms QT Int : 334 ms P-R-T Axes : 050 062 049 degrees QTc Int : 437 ms Sinus tachycardia Nonspecific ST and T wave abnormality Abnormal ECG Confirmed by AMINATA PEDROZA, JOSE ([id number]), online editor ERICK FERRARA ([id number]) on 03/18/2024 11:04:22 AM Referred By: REJI/ARYAN Confirmed By:JOSE COATES MD
--- NOTE | 2024-03-14 13:48 | ED.VIS.CHEST ---
HPI History of Present Illness Chief Complaint: Chest Pain Informant: patient Narrative Narrative: 58-year-old female presenting to the emergency room with a chief complaint of chest pain. Patient states that around 11:00 this morning she developed a sharp pain in the left midsternal region of her anterior chest. She states that it wraps around underneath her left breast and into the left back. Pain is worse with touch movement. She notes no significant cough or fever. No sweating shortness of breath nausea or vomiting. She denies any known trauma. She states that she can feel her heart beating strongly. She states that she had some discomfort last evening but it resolved and she was fine while she got up this morning until it began. [facility] Medical History Post-menopausal Thyroid disease Anemia Former smoker History of heart attack History of tobacco use Tobacco use disorder, continuous Encounter for screening for malignant neoplasm of lung in current smoker with 30 pack year history or greater Anemia, chronic renal failure Encounter for screening for malignant neoplasm of lung in former smoker who quit in past 15 years with 30 pack year history or greater Acute kidney injury Hypertension CRF (chronic renal failure) Wears glasses Wears partial dentures Abrasion Diabetes Thyroid disease Ambulates with cane Low iron High cholesterol Easy bruising Blackout Dietary restriction Gastric reflux CPAP (continuous positive airway pressure) dependence Shortness of breath on exertion History of pain when walking History of stress test Cardiology follow-up encounter Iron deficiency anemia due to chronic blood loss Sleep apnea Hypertension History of back problems History of non-ST elevation myocardial infarction (NSTEMI) (01/17/20) Biliary dyskinesia Left carotid bruit Chronic anemia Hypoglycemia Syncope Constipation Hemorrhoid Arthritis Chest pain Segmental and somatic dysfunction of pelvic region Segmental and somatic dysfunction of lumbar region COPD exacerbation Fibroadenoma of left breast Microcalcification of left breast on mammogram Diabetes type 2, controlled Insomnia Depression Hypothyroidism Abnormal stress test Unstable angina Left arm numbness Right lower lobe pneumonia COPD (chronic obstructive pulmonary disease) with emphysema Dyslipidemia Home Medications ?Medication ?Instructions ?Recorded ?Last Taken ?Type atorvastatin 40 mg tablet 40 mg PO QHS cholesterol 08/11/14 02/17/22 History pantoprazole 40 mg tablet,delayed 40 mg PO BID reflux 05/15/21 02/27/24 History release metformin 500 mg tablet 500 mg PO BID DM 10/05/21 02/18/22 History doxepin 50 mg capsule 50 mg PO QHS DEPRESSION 02/18/22 02/17/22 History levothyroxine 50 mcg tablet 50 mcg PO DAILY THYROID 02/18/22 02/17/22 History lisinopril 2.5 mg tablet 2.5 mg PO DAILY BP 02/18/22 02/27/24 History ferrous sulfate 325 mg (65 mg 325 mg PO DAILY 08/17/22 Unknown History iron) tablet (Iron (ferrous sulfate)) pioglitazone 30 mg tablet 15 mg PO DAILY 12/25/23 Unknown History ascorbic acid (vitamin C) 500 mg 500 mg PO DAILY 02/19/24 Unknown History tablet,extended release (C Complex) colestipol 1 gram tablet 1 g PO HS PRN diarrhea 02/19/24 Unknown History paroxetine HCl 30 mg tablet 30 mg PO DAILY 02/19/24 02/27/24 History Allergy/AdvReac Type Severity Reaction Status Date / Time prochlorperazine edisylate Allergy Severe Rash Verified 03/14/24 13:30 (From Compazine) prochlorperazine maleate Allergy Severe Rash Verified 03/14/24 13:30 (From Compazine) Family History Father Myocardial infarction CVA (cerebral vascular accident) Mother Heart disease Seizures Lung cancer Sister Seizures Grandmother Cancer Grandfather Cancer Aunt Breast cancer Surgical History Hx of arthroscopy of knee History of cardiac catheterization Hx of colonoscopy History of esophagogastroduodenoscopy (EGD) Hx laparoscopic cholecystectomy Hx of sinus surgery History of carpal tunnel surgery of left wrist History of cholecystectomy (01/17/20) History of left heart catheterization (02/10/20) history stereotactic biopsy left breast (~12/22/17) History of hysterectomy H/O: hysterectomy heart catheterization Social History household members: none Smoking Status: Current every day smoker tobacco type: cigarettes second hand exposure: No alcohol intake: never substance use type: does not use caffeine: Yes what type of physical activity do you participate in: walking frequency: daily ROS ROS ED Constitutional Constitutional ED: Denies chills, fever(s) or weight loss Eyes Eyes: Denies change in vision or diplopia ENT ENT ED: Denies ear pain, rhinorrhea or sore throat Cardiovascular Cardiovascular: Reports chest pain; Denies orthopnea, palpitations or racing heartbeat Respiratory/Chest Respiratory/Chest: Denies cough, dyspnea or orthopnea Gastrointestinal Gastrointestinal: Denies abdominal pain, diarrhea, nausea or vomiting Genitourinary Genitourinary ED: Denies dysuria, hematuria or urinary frequency Musculoskeletal Musculoskeletal: Reports back pain; Denies arthralgias or myalgias Integumentary Denies abscess or rash Neurologic Neurologic: Denies headache(s) or weakness Psychiatric Psychiatric: Denies anxiety, depression, suicidal ideation or suicidal thoughts Endocrine Endocrinology: Denies polydipsia, polyphagia or polyuria Allergic/Immunologic Allergic/Immunologic ED: Denies mouth swelling, tongue swelling or urticaria EXAM Physical Exam Const Vital Signs: 03/14/24 13:30 03/14/24 13:33 03/14/24 14:29 Temperature 97.7 F L Temperature Source Oral Pulse Rate 105 H 94 Respiratory Rate 100 H 16 Respiratory Effort Short of Breath Blood Pressure 148/68 H 119/55 L Blood Pressure Mean 94 76 Pulse Ox 21 96 Oxygen Delivery Method Room Air Room Air Positive well nourished and well developed General Appearance ED: well developed HEENT Reports normocephalic, head/scalp atraumatic and moist mucous membranes Eyes PERRL and EOMs intact bilaterally Neck no lymphadenopathy, supple and no JVD Chest Wall Chest Narrative: Left mid ribs are tender to palpation starting just to the left of the sternal border and underneath the left breast and into the angle of the ribs posteriorly. I do not appreciate any rash. Pain seems worse with movement and raising her arms above her head. Resp normal respiratory effort and clear to auscultation bilaterally Cardio regular rate, regular rhythm and no murmurs GI normal to inspection, nondistended, normoactive bowel sounds and non-tender Palpation: soft Back/Spine no CVA tenderness and normal ROM Extremity normal to inspection General Extremety ED: Negative for edema General Extremity: Negative for edema Neuro oriented x3 and CN's II-XII intact bilaterally Sensorium / Orientation: alert Motor Exam: strength 5/5 throughout Psych mental status grossly normal Mood & Affect: Negative for depressed or tearful Skin no rashes or lesions noted and no wounds MDM MDM MDM Narrative Medical decision making narrative: Differential diagnosis includes cardiac dysrhythmia ACS, aortic dissection, chest wall pain somatic dysfunction of rib pleural effusion malignancy pneumonia pleurisy EKG shows a sinus tachycardia. On the monitor her heart rate is come down to 82 bpm remains in normal sinus. She is in no acute distress. My independent interpretation of the chest x-ray is no acute process. Clinically her pain is reproducible with palpation and movement makes me believe that this is somatic dysfunction of a rib section. Would recommend heat anti-inflammatories rest gentle stretching History & Record Review Discussion w/independent historian: Patient Radiography Diagnostic Testing: Clinical Impression(s) from Imaging Studies Chest X-Ray 03/14/24 14:10 IMPRESSION: No acute abnormality is seen. Electronically Signed: Agus Ruelas MD at 14:29 EDT , EKG Initial EKG: Attestation: I personally reviewed and interpreted this EKG as follows: Comments: Sinus tachycardia ventricular rate of 103 bpm. No concerning features of ACS noted. Discharge Plan Triage Chief Complaint: Chest Pain ED Provider: Ashish Bain Dx/Rx/DC Orders Clinical Impression: Somatic dysfunction of rib, Acute chest wall pain Instructions: ED Chest Pain, Noncardiac Prescriptions: No Action ferrous sulfate [Iron (ferrous sulfate)] 325 mg (65 mg iron) tablet 325 mg PO DAILY pioglitazone 30 mg tablet 15 mg PO DAILY atorvastatin 40 MG tablet 40 mg PO QHS Patient Comments: cholesterol metformin 500 mg Tablet 500 mg PO BID pantoprazole 40 mg tablet,delayed release (DR/EC) 40 mg PO BID doxepin 50 mg capsule 50 mg PO QHS levothyroxine 50 mcg tablet 50 mcg PO DAILY lisinopril 2.5 mg tablet 2.5 mg PO DAILY paroxetine HCl 30 mg tablet 30 mg PO DAILY ascorbic acid (vitamin C) [C Complex] 500 mg tablet extended release 500 mg PO DAILY colestipol 1 gram tablet 1 g PO HS PRN (Reason: diarrhea) Primary Care Provider: Bret You Chi Referrals: Bret You Chi, MD [Primary Care Provider] - As Needed Print Language: Icelandic Disposition Disposition: Home, Self Care
[2024-03-14] MEDS: Ketorolac 30 MG/ML Syringe IV (13:59)
--- NOTE | 2024-03-14 14:10 | RAD_ITS ---
STUDY: X-RAY CHEST REASON FOR EXAM: Female, 58 years old. Chest pain TECHNIQUE: Single AP portable view of the chest. COMPARISON: Comparison is made with prior study dated February 18, 2022. FINDINGS: EKG electrodes are seen. The lungs are clear and expanded. Stable scattered calcified granulomas. There is no demonstrated pleural abnormality. Normal size heart. Normal mediastinum and lauryn. Normal visualized pulmonary arteries. Normal visualized aortic arch and descending thoracic aorta. There are degenerative changes of the visualized thoracic spine. Healed right-sided rib fracture. There is no demonstrated abnormality of the visualized soft tissue structures of the upper abdomen. RAD/Chest PA and Lateral IMPRESSION: No acute abnormality is seen. Electronically Signed: Agus Ruelas MD at 14:29 EDT ,
[2024-03-14 14:29] VITALS: BP 119/55; PULSE 94; RESP 16; O2SAT 96
[2024-03-14 15:07] VITALS: BP 116/57; PULSE 83; RESP 18; TEMP 36.3; O2SAT 97
== END 2024-03-14 15:08 | disposition home or self-care (01) ==
PROVIDERS: Emergency Provider Emergency Medicine; PCP Family Medicine Geriatric Medicine; Visit Provider Emergency Medicine
DX: R07.89 Other chest pain (principal); J43.9 Emphysema, unspecified; E11.22 Type 2 diabetes mellitus with diabetic chronic kidney disease; F17.210 Nicotine dependence, cigarettes, uncomplicated; N18.9 Chronic kidney disease, unspecified; I12.9 Hypertensive chronic kidney disease with stage 1 through stage 4 chronic kidney disease, or unspecified chronic kidney disease; E78.00 Pure hypercholesterolemia, unspecified; M99.08 Segmental and somatic dysfunction of rib cage
CPT/HCPCS: 71046; 93005; 96374; 96376; 99282; A4216

== ENCOUNTER → 2024-03-22 | Outpatient (CLI) | payer MEDICAID, SELFPAY ==
[2024-03-22 10:08] LABS: Absolute Lymphocyte Count 1.22 X10^3/uL (0.83-4.51); Absolute Neutrophil Count 3.7 X10^3/uL (2.0-7.7); Basophil# 0.04 X10^3/uL; Basophil% 0.7 % (0-1); Eosinophil# 0.25 X10^3/uL; Eosinophils% 4.3 % (0-5); Hematocrit 33.4 % (37-47); Hemoglobin 10.4 g/dL (12.0-15.0); Lymphocyte # 1.22 X10^3/ul (0.83-4.51); Lymphocyte % 21.1 % (19-41); Mean Corp Hgb Conc 31.1 g/dL (32-36); Mean Corpuscular Hgb 30.3 pg (27.0-32.0); Mean Corpuscular Volume 97.4 fL (81-99); Mean Platelet Vol. 8.3 fl (6.2-12.0); Monocyte% 8.7 % (0-10); NRBC Flagged by Analyzer 0.3 % (0-5); Neutrophil # 3.72 X10^3/uL (2.7-7.7); Neutrophil % 64.5 % (47-70); Platelet Count 387 K/mm3 (150-450); RBC Distribution Width CV 14.4 % (11.6-14.6); RBC Distribution Width SD 50.6 fl (35.1-43.9); Red Blood Count 3.43 M/mm3 (4.2-5.4); White Blood Count 5.8 K/mm3 (4.4-11.0)
[2024-03-22 10:38] LABS: Hemoglobin A1c 6.3 % (3.8-5.6)
[2024-03-22 10:55] LABS: ALB/GLOB Ratio 1.2 RATIO (0.9-2.4); AST(SGOT) 12 U/L (15-37); Alanine Aminotransfer ALT/SGPT 24 U/L (13-56); Albumin, Serum 3.7 g/dL (3.2-5.0); Alkaline Phosphatase 103 U/L (45-117); Anion Gap 4 (5-15); BUN 21 mg/dL (7-18); BUN/Creat Ratio 16.7 RATIO (10-20); Calcium,Total 9.2 mg/dL (8.5-10.1); Chloride 104 mmol/L (98-107); Cholesterol 145 mg/dL (200); Creatinine, Serum 1.26 mg/dL (0.55-1.02); EST Glomerular Filtration Rate 46 mL/min (>60); Est Glom Filt Rate - Afr Amer 56 mL/min (>60); Globulin 3.1 g/dL (2.2-4.2); Glucose 154 mg/dL (74-106); High Density Lipoprotein 80 mg/dL; Potassium 5.1 mmol/L (3.5-5.1); Protein, Total 6.8 g/dL (6.4-8.2); Sodium Level 132 mmol/L (136-145); Thyroid Stim Hormone (TSH) 1.93 uIU/mL (0.358-3.74); Triglycerides 73 mg/dL; Very Low Density Lipoprotein 15 mg/dL (5-40)
== END | disposition home or self-care (01) ==
LOC: LAB 09:25
PROVIDERS: PCP Family Medicine Geriatric Medicine; Visit Provider Family Medicine Geriatric Medicine
DX: I10 Essential (primary) hypertension (principal); E11.65 Type 2 diabetes mellitus with hyperglycemia; E78.5 Hyperlipidemia, unspecified
CPT/HCPCS: 36415; 80053; 80061; 83036; 84443; 85025

== ENCOUNTER 2024-04-22 15:01 | Emergency (ER) | payer MEDICAID, SELFPAY ==
[2024-04-22 15:02] VITALS: BP 89/58; PULSE 97; RESP 20; TEMP 35.8; O2SAT 99
--- NOTE | 2024-04-22 15:08 | EKG12_ITS ---
Test Reason : CP Blood Pressure : / mmHG Vent. Rate : 112 BPM Atrial Rate : 112 BPM P-R Int : 158 ms QRS Dur : 076 ms QT Int : 330 ms P-R-T Axes : 075 067 053 degrees QTc Int : 450 ms Sinus tachycardia Nonspecific ST abnormality Abnormal ECG Confirmed by Wang Lomas ([id number]), video news editor ERICK FERRARA ([id number]) on 04/24/2024 8:19:18 AM Referred By: ES/TL Confirmed By:Wang Lomas
[2024-04-22 15:48] VITALS: O2SAT 93
[2024-04-22 15:49] VITALS: BMI 33.5
--- NOTE | 2024-04-22 15:55 | RAD_ITS ---
STUDY: X-RAY CHEST REASON FOR EXAM: Female, 58 years old. chest pain TECHNIQUE: AP portable COMPARISON: March 14, 2024 FINDINGS: The lungs are clear and expanded. There is no demonstrated pleural abnormality. Normal size heart. Normal mediastinum and lauryn. Normal visualized pulmonary arteries. Normal visualized aortic arch and descending thoracic aorta. Normal visualized thoracic spine. Normal visualized ribs, clavicles, and shoulders. There is no demonstrated abnormality of the visualized soft tissue structures of the upper abdomen. No significant change since earlier exam RAD/Chest 1 View (Portable) IMPRESSION: Normal x-ray examination of the chest. Electronically Signed: Oliverio Frederick MD at 16:11 EDT ,
[2024-04-22 16:05] LABS: Absolute Lymphocyte Count 2.09 X10^3/uL (0.83-4.51); Basophil# 0.04 X10^3/uL; Basophil% 0.5 % (0-1); Eosinophils% 2.5 % (0-5); Hematocrit 35.8 % (37-47); Hemoglobin 10.8 g/dL (12.0-15.0); Lymphocyte # 2.09 X10^3/ul (0.83-4.51); Lymphocyte % 25.7 % (19-41); Mean Corp Hgb Conc 30.2 g/dL (32-36); Mean Corpuscular Hgb 30.6 pg (27.0-32.0); Mean Corpuscular Volume 101.4 fL (81-99); Mean Platelet Vol. 8.1 fl (6.2-12.0); Monocyte# 0.71 X10^3/uL; Monocyte% 8.7 % (0-10); NRBC Flagged by Analyzer 0.9 % (0-5); Neutrophil # 5.04 X10^3/uL (2.7-7.7); Neutrophil % 61.9 % (47-70); Platelet Count 330 K/mm3 (150-450); RBC Distribution Width CV 14.7 % (11.6-14.6); RBC Distribution Width SD 52.7 fl (35.1-43.9); Red Blood Count 3.53 M/mm3 (4.2-5.4); White Blood Count 8.1 K/mm3 (4.4-11.0)
[2024-04-22 16:09] VITALS: BP 94/61; PULSE 98; RESP 20; O2SAT 96
[2024-04-22 16:44] LABS: Anion Gap 10 (5-15); BUN 26 mg/dL (7-18); BUN/Creat Ratio 18.1 RATIO (10-20); Calcium,Total 8.5 mg/dL (8.5-10.1); Chloride 107 mmol/L (98-107); Creatinine, Serum 1.44 mg/dL (0.55-1.02); EST Glomerular Filtration Rate 40 mL/min (>60); Est Glom Filt Rate - Afr Amer 48 mL/min (>60); Estimated Creatinine Clearance 39.27 ml/min; Glucose 233 mg/dL (74-106); Potassium 4.7 mmol/L (3.5-5.1); Sodium Level 132 mmol/L (136-145); Troponin-I HS (w/2H Reflex) 5 pg/mL (3.0-54.0)
[2024-04-22 16:58] LABS: D-Dimer Quantitative (DVT/PE) 1.41 FEU/ug/m (0.27-0.49)
[2024-04-22 17:05] VITALS: BP 96/54; PULSE 88; RESP 19; O2SAT 98
--- NOTE | 2024-04-22 17:18 | CT_ITS ---
STUDY: CTA CHEST REASON FOR EXAM: Female, 58 years old. pain RADIATION DOSAGE (If Supplied By Facility): CTDIvol = ( 7.76 ) mGy, DLP = ( 436.21 ) mGycm TECHNIQUE: The examination was performed with the intravenous administration of IV 100mL Isovue-370. Post-processing of the angiographic images was performed, with multiplanar reformation and 3D reconstruction. Individualized dose optimization techniques were used for this CT. COMPARISON: January 31, 2020. FINDINGS: Normal enhancement of the main pulmonary artery and right and left pulmonary arteries. Normal enhancement of the bilateral peripheral pulmonary arteries. There is no demonstrated pulmonary embolism. Minor atherosclerotic changes of the aorta without evidence for aneurysm. There is no demonstrated aortic dissection. Normal heart and pericardium. Normal mediastinum. Normal hilar regions. Normal visualized trachea and bronchi. The lungs are well expanded. There is minor subsegmental atelectasis or scarring at the left base.. Lungs are otherwise clear. Normal pleura. Normal chest wall structures. Dorsal spine demonstrates mild degenerative changes Normal visualized upper abdomen. CT/CTA Chest W/WO Contrast IMPRESSION: Minor subsegmental atelectasis or scarring at left base. Otherwise no acute cardiopulmonary pathology. No evidence for pulmonary embolus. Electronically Signed: Oliverio Frederick MD at 18:15 EDT ,
[2024-04-22] MEDS: 0.9% Normal Saline (500mL Bag) 500 ML 999 ML IV (17:23)
[2024-04-22 17:54] LABS: Reflex Troponin-HS? (from REC) Y
[2024-04-22 18:00] VITALS: BP 110/49; PULSE 83; RESP 13; O2SAT 98
--- NOTE | 2024-04-22 18:13 | EDS_ITS ---
HPI History of Present Illness Chief Complaint: Chest Pain Informant: patient Narrative Narrative: Sent over from infusion center for chest pain left side to the back started 1 PM after finishing her iron infusion. She states they are doing a saline flush when she felt symptoms. She had tingling the right hand. Mild dyspnea. Mild cough. History of diabetes and hyperlipidemia. Remote tobacco quit in September. Father with ME at the age of 70. Diagnostic heart cath January 2020 normal. Denies recent travel, surgeries, immobilizations. No history of PE or DVT. Currently chest pain is subsided CVD Risk Factors: Positive for Diabetes, Hypercholesterolemia and Smoking; Negative for Hypertension or Family History 1' </=55 PE Risk Factors: Negative for Recent Travel/Surgery, Recent Immobilization or Prior DVT or PE [facility]SH [facility] Medical History Post-menopausal Thyroid disease Anemia Former smoker History of heart attack History of tobacco use Tobacco use disorder, continuous Encounter for screening for malignant neoplasm of lung in current smoker with 30 pack year history or greater Anemia, chronic renal failure Encounter for screening for malignant neoplasm of lung in former smoker who quit in past 15 years with 30 pack year history or greater Acute kidney injury Hypertension CRF (chronic renal failure) Wears glasses Wears partial dentures Abrasion Diabetes Thyroid disease Ambulates with cane Low iron High cholesterol Easy bruising Blackout Dietary restriction Gastric reflux CPAP (continuous positive airway pressure) dependence Shortness of breath on exertion History of pain when walking History of stress test Cardiology follow-up encounter Iron deficiency anemia due to chronic blood loss Sleep apnea Hypertension History of back problems History of non-ST elevation myocardial infarction (NSTEMI) (01/17/20) Biliary dyskinesia Left carotid bruit Chronic anemia Hypoglycemia Syncope Constipation Hemorrhoid Arthritis Chest pain Segmental and somatic dysfunction of pelvic region Segmental and somatic dysfunction of lumbar region COPD exacerbation Fibroadenoma of left breast Microcalcification of left breast on mammogram Diabetes type 2, controlled Insomnia Depression Hypothyroidism Abnormal stress test Unstable angina Left arm numbness Right lower lobe pneumonia COPD (chronic obstructive pulmonary disease) with emphysema Dyslipidemia Home Medications ?Medication ?Instructions ?Recorded ?Last Taken ?Type atorvastatin 40 mg tablet 40 mg PO QHS cholesterol 08/11/14 02/17/22 History pantoprazole 40 mg tablet,delayed 40 mg PO BID reflux 05/15/21 02/27/24 History release metformin 500 mg tablet 500 mg PO BID DM 10/05/21 02/18/22 History doxepin 50 mg capsule 50 mg PO QHS DEPRESSION 02/18/22 02/17/22 History levothyroxine 50 mcg tablet 50 mcg PO DAILY THYROID 02/18/22 02/17/22 History lisinopril 2.5 mg tablet 2.5 mg PO DAILY BP 02/18/22 02/27/24 History ferrous sulfate 325 mg (65 mg 325 mg PO DAILY 08/17/22 Unknown History iron) tablet (Iron (ferrous sulfate)) ascorbic acid (vitamin C) 500 mg 500 mg PO DAILY 02/19/24 Unknown History tablet,extended release (C Complex) colestipol 1 gram tablet 1 g PO HS PRN diarrhea 02/19/24 Unknown History paroxetine HCl 20 mg tablet 20 mg PO DAILY 04/22/24 Unknown History pioglitazone 15 mg tablet 15 mg PO DAILY 04/22/24 Unknown History Allergy/AdvReac Type Severity Reaction Status Date / Time prochlorperazine edisylate Allergy Severe Rash Verified 04/22/24 15:02 (From Compazine) prochlorperazine maleate Allergy Severe Rash Verified 04/22/24 15:02 (From Compazine) Family History Father Myocardial infarction CVA (cerebral vascular accident) Mother Heart disease Seizures Lung cancer Sister Seizures Grandmother Cancer Grandfather Cancer Aunt Breast cancer Surgical History Hx of arthroscopy of knee History of cardiac catheterization Hx of colonoscopy History of esophagogastroduodenoscopy (EGD) Hx laparoscopic cholecystectomy Hx of sinus surgery History of carpal tunnel surgery of left wrist History of cholecystectomy (01/17/20) History of left heart catheterization (02/10/20) history stereotactic biopsy left breast (~12/22/17) History of hysterectomy H/O: hysterectomy heart catheterization Social History household members: none Smoking Status: Former smoker second hand exposure: No alcohol intake: never substance use type: does not use caffeine: Yes what type of physical activity do you participate in: walking frequency: daily ROS ROS ED Constitutional Constitutional ED: Denies chills, fever(s) or sweats Eyes Eyes: Denies change in vision ENT ENT ED: Denies dysphagia or sore throat Cardiovascular Cardiovascular: Reports chest pain; Denies leg edema, palpitations or racing heartbeat Respiratory/Chest Respiratory/Chest: Reports dyspnea; Denies cough or dyspnea on exertion Gastrointestinal Gastrointestinal: Denies abdominal pain, diarrhea, nausea or vomiting Genitourinary Genitourinary ED: Denies dysuria, hematuria or urinary frequency Musculoskeletal Musculoskeletal: Denies back pain, extremity pain or neck pain Integumentary Denies rash or wounds Neurologic Neurologic: Denies headache(s), paresthesias or weakness EXAM Physical Exam Const Vital Signs: 04/22/24 15:02 04/22/24 15:48 04/22/24 15:50 Temperature 96.4 F L Temperature Source Temporal Pulse Rate 97 Respiratory Rate 20 H Respiratory Effort Normal Respiratory Pattern Normal Blood Pressure 89/58 L Blood Pressure Mean 68 Pulse Ox 99 93 Oxygen Delivery Method Room Air Room Air 04/22/24 16:09 04/22/24 17:05 04/22/24 18:00 Temperature Temperature Source Pulse Rate 98 88 83 Respiratory Rate 20 H 19 H 13 Respiratory Effort Respiratory Pattern Blood Pressure 94/61 96/54 L 110/49 L Blood Pressure Mean 72 68 69 Pulse Ox 96 98 98 Oxygen Delivery Method Room Air Room Air Room Air 04/22/24 18:44 Temperature 97.8 F Temperature Source Pulse Rate 77 Respiratory Rate 20 H Respiratory Effort Respiratory Pattern Blood Pressure 113/56 L Blood Pressure Mean 75 Pulse Ox 97 Oxygen Delivery Method Positive well nourished and well developed General Appearance ED: well developed and NAD HEENT Reports moist mucous membranes normocephalic and atraumatic Eyes EOMs intact bilaterally and conjunctivae normal General Eye ED: Yes normal appearance of both eyes Neck no lymphadenopathy and supple General: Negative for tenderness Chest Wall Chest: Negative for tenderness Resp normal respiratory effort and normal air movement Effort and Inspection: symmetric chest movement; Negative for respiratory distress Cardio regular rhythm and no murmurs Rate: tachycardic Peripheral Pulses: pulses 2+ throughout GI normal to inspection, nondistended, normoactive bowel sounds and non-tender Palpation: Negative for guarding or rebound tenderness present Back/Spine no CVA tenderness and no thoracic nor lumbar tenderness Extremity normal to inspection General Extremety ED: Negative for edema or tenderness General Extremity: Negative for edema Neuro oriented x3 and no sensory deficits noted Sensorium / Orientation: awake and alert Skin no rashes or lesions noted and no wounds Heart Score History: Slightly/Non-Suspicious ECG: Normal Age: >45 - <65 years Risk Factors: >/= 3 Risk Factors or History of CAD Troponin: </= Normal Limit Score: 3 MDM MDM MDM Narrative Medical decision making narrative: Interventions / MDM: Differential diagnosis: Atypical chest pain Diagnosis considered but do not suspect: ACS however EKG with no ischemic findings negative troponin x 2. Pulm embolus however CT angiogram negative. No acute process My EKG interpretation: Sinus rate 112, no ST or T wave changes. Imaging independently reviewed and interpreted by myself: 1 view chest x-ray: No acute process. CTA chest: No acute process External documents reviewed: Cardiac cath from January 2020 normal coronary arteries. Test considered but not ordered:N/A ED course: Nursing protocol initiated chest pain workup due to busy department. She is symptom-free on my reevaluation. Cardiac workup initial initial troponin was negative low risk Wells criteria for PE with tachycardia D-dimer was added. She was in no acute distress. D-dimer returned elevated at 1.41. Discussed findings with patient. CT angiogram sent for further evaluation. CT angiogram negative. Delta troponin negative. Remains symptom-free. Discussed outpatient follow-up with her doctors with return precautions. All questions were answered. Re-evaluation: stable Disposition discussed with patient/family/significant other: Patient Case discussed with consulting clinician: N/A This note was generated with [employer] dictation software. It may contain incorrect words, spelling, and punctuation that were not noted in checking the note before signing. Lab Data Attestation: I reviewed the patient's lab results. Labs: Laboratory Results - last 24 hr 04/22/24 04/22/24 04/22/24 15:45 16:21 18:01 WBC 8.1 RBC 3.53 L Hgb 10.8 L Hct 35.8 L MCV 101.4 H MCH 30.6 MCHC 30.2 L RDW Std Deviation 52.7 H RDW Coeff of Autumn 14.7 H Plt Count 330 MPV 8.1 Immature Gran % (Auto) 0.700 Neut % (Auto) 61.9 Lymph % (Auto) 25.7 Harney % (Auto) 8.7 Eos % (Auto) 2.5 Baso % (Auto) 0.5 Absolute Neuts (auto) 5.0 Absolute Lymphs (auto) 2.09 Nucleated RBC % 0.9 D-Dimer Quant (PE/DVT) 1.41 H* Sodium 132 L Potassium 4.7 Chloride 107 Carbon Dioxide 15.0 L Anion Gap 10 BUN 26 H Creatinine 1.44 H Estim Creat Clear Calc 39.27 Est GFR (MDRD) Af Amer 48 L Est GFR (MDRD) Non-Af 40 L BUN/Creatinine Ratio 18.1 Glucose 233 H Calcium 8.5 Troponin I High Sens 5 5 Radiography Diagnostic Testing: Clinical Impression(s) from Imaging Studies Chest X-Ray 04/22/24 15:55 IMPRESSION: Normal x-ray examination of the chest. Electronically Signed: Oliverio Frederick MD at 16:11 EDT Reading Location ID and State: [facility] / [place] Tel [phone], Service support , Chest CTA 04/22/24 17:18 IMPRESSION: Minor subsegmental atelectasis or scarring at left base. Otherwise no acute cardiopulmonary pathology. No evidence for pulmonary embolus. Electronically Signed: Oliverio Frederick MD at 18:15 EDT , Discharge Plan Triage Chief Complaint: Chest Pain ED Provider: Florencio Dick Dx/Rx/DC Orders Clinical Impression: Chest pain, CKD (chronic kidney disease), Anemia Instructions: Anemia, CKD Dc, ED Chest Pain, Uncertain Cause Prescriptions: No Action ferrous sulfate [Iron (ferrous sulfate)] 325 mg (65 mg iron) tablet 325 mg PO DAILY atorvastatin 40 MG tablet 40 mg PO QHS Patient Comments: cholesterol metformin 500 mg Tablet 500 mg PO BID pantoprazole 40 mg tablet,delayed release (DR/EC) 40 mg PO BID doxepin 50 mg capsule 50 mg PO QHS levothyroxine 50 mcg tablet 50 mcg PO DAILY lisinopril 2.5 mg tablet 2.5 mg PO DAILY ascorbic acid (vitamin C) [C Complex] 500 mg tablet extended release 500 mg PO DAILY colestipol 1 gram tablet 1 g PO HS PRN (Reason: diarrhea) pioglitazone 15 mg tablet 15 mg PO DAILY paroxetine HCl 20 mg tablet 20 mg PO DAILY Primary Care Provider: Bret You Chi Referrals: Bret You Chi, MD [Primary Care Provider] - 3-5 Days Activity Restrictions/Additional Instructions: Cardiac workup negative. Your hemoglobin today is 10.8. Your creatinine is 1.44 with a GFR of 40. Your CTA chest negative for any pulmonary embolism. Follow-up with your doctor. Print Language: Gambian Disposition Disposition: Home, Self Care Discharge Date/Time: 04/22/24 19:37
[2024-04-22 18:32] LABS: Troponin-I HS 5 pg/mL (3.0-54.0)
[2024-04-22 18:44] VITALS: BP 113/56; PULSE 77; RESP 20; TEMP 36.6; O2SAT 97
== END 2024-04-22 19:37 | disposition home or self-care (01) ==
PROVIDERS: Emergency Provider Emergency Medicine; PCP Family Medicine Geriatric Medicine; Visit Provider Emergency Medicine
DX: R07.9 Chest pain, unspecified (principal); J43.9 Emphysema, unspecified; E11.22 Type 2 diabetes mellitus with diabetic chronic kidney disease; N18.9 Chronic kidney disease, unspecified; E78.00 Pure hypercholesterolemia, unspecified; I12.9 Hypertensive chronic kidney disease with stage 1 through stage 4 chronic kidney disease, or unspecified chronic kidney disease; D64.9 Anemia, unspecified; Z87.891 Personal history of nicotine dependence; K21.9 Gastro-esophageal reflux disease without esophagitis; Z79.899 Other long term (current) drug therapy; R06.00 Dyspnea, unspecified
CPT/HCPCS: 71045; 71275; 80048; 84484; 85025; 85379; 93005; 96360; 99284; J7040; Q9967; A4216

== ENCOUNTER → 2024-06-05 | Outpatient (CLI) | payer MEDICAID, SELFPAY ==
[2024-06-05 09:50] LABS: Albumin, Serum 3.6 g/dL (3.2-5.0); BUN 38 mg/dL (7-18); BUN/Creat Ratio 27.7 RATIO (10-20); Calcium,Total 9.3 mg/dL (8.5-10.1); Chloride 108 mmol/L (98-107); Creatinine, Serum 1.37 mg/dL (0.55-1.02); EST Glomerular Filtration Rate 42 mL/min (>60); Est Glom Filt Rate - Afr Amer 51 mL/min (>60); Glucose 161 mg/dL (74-106); Phosphorus 4.4 mg/dL (2.5-4.9); Potassium 5.8 mmol/L (3.5-5.1); Sodium Level 137 mmol/L (136-145)
[2024-06-05 11:29] LABS: Potassium 5.2 mmol/L (3.5-5.1)
== END | disposition home or self-care (01) ==
LOC: POLAB3 09:16
PROVIDERS: PCP Family Medicine Geriatric Medicine; Visit Provider Internal Medicine Nephrology
DX: N18.31 Chronic kidney disease, stage 3a (principal); E87.5 Hyperkalemia
CPT/HCPCS: 36415; 80069; 84132

== ENCOUNTER → 2024-06-21 | Outpatient (CLI) | payer MEDICAID, SELFPAY ==
[2024-06-21 11:33] LABS: Absolute Lymphocyte Count 1.09 X10^3/uL (0.83-4.51); Absolute Neutrophil Count 3.1 X10^3/uL (2.0-7.7); Basophil# 0.02 X10^3/uL; Basophil% 0.4 % (0-1); Eosinophil# 0.28 X10^3/uL; Eosinophils% 5.5 % (0-5); Hematocrit 34.8 % (37-47); Hemoglobin 10.8 g/dL (12.0-15.0); Lymphocyte # 1.09 X10^3/ul (0.83-4.51); Lymphocyte % 21.5 % (19-41); Mean Corpuscular Hgb 30.4 pg (27.0-32.0); Mean Platelet Vol. 8.1 fl (6.2-12.0); Monocyte# 0.51 X10^3/uL; Monocyte% 10.1 % (0-10); NRBC Flagged by Analyzer 0 % (0-5); Neutrophil # 3.14 X10^3/uL (2.7-7.7); Neutrophil % 62.1 % (47-70); Platelet Count 320 K/mm3 (150-450); RBC Distribution Width CV 15.6 % (11.6-14.6); Red Blood Count 3.55 M/mm3 (4.2-5.4); White Blood Count 5.1 K/mm3 (4.4-11.0)
[2024-06-21 11:56] LABS: Microalbumin,Random Urine < 5.0 mg/L (NO RANGE EST.)
[2024-06-21 12:10] LABS: ALB/GLOB Ratio 1.2 RATIO (0.9-2.4); AST(SGOT) 17 U/L (15-37); Alanine Aminotransfer ALT/SGPT 22 U/L (13-56); Albumin, Serum 3.6 g/dL (3.2-5.0); Alkaline Phosphatase 117 U/L (45-117); Anion Gap 4 (5-15); BUN 25 mg/dL (7-18); BUN/Creat Ratio 22.3 RATIO (10-20); Calcium,Total 8.8 mg/dL (8.5-10.1); Chloride 111 mmol/L (98-107); Cholesterol 130 mg/dL (200); Creatinine, Serum 1.12 mg/dL (0.55-1.02); EST Glomerular Filtration Rate 53 mL/min (>60); Est Glom Filt Rate - Afr Amer 64 mL/min (>60); Globulin 2.9 g/dL (2.2-4.2); Glucose 131 mg/dL (74-106); High Density Lipoprotein 66 mg/dL; Potassium 4.8 mmol/L (3.5-5.1); Protein, Total 6.5 g/dL (6.4-8.2); Sodium Level 138 mmol/L (136-145); Thyroid Stim Hormone (TSH) 0.506 uIU/mL (0.358-3.740); Triglycerides 116 mg/dL; Very Low Density Lipoprotein 23 mg/dL (5-40)
== END | disposition home or self-care (01) ==
PROVIDERS: PCP Family Medicine Geriatric Medicine; Referring Provider Family Medicine Geriatric Medicine; Visit Provider Family Medicine Geriatric Medicine
DX: E11.65 Type 2 diabetes mellitus with hyperglycemia (principal); E78.5 Hyperlipidemia, unspecified; I10 Essential (primary) hypertension
CPT/HCPCS: 36415; 80053; 80061; 82043; 83036; 84443; 85025

== ENCOUNTER 2024-09-23 21:22 | Emergency (ER) | payer MEDICAID, SELFPAY ==
[2024-09-23 21:29] VITALS: BP 157/66; PULSE 73; RESP 16; TEMP 36.8; O2SAT 98; BMI 29.0
--- NOTE | 2024-09-23 21:30 | ED.RN ---
PT LEFT AFTER GETTNG BLOOD SUGA CHECK 242.
[2024-09-23 21:45] LABS: Bedside Glucose 242 mg/dL (74-106)
== END 2024-09-23 21:28 | disposition left against medical advice (07) ==
LOC: ED 21:33
PROVIDERS: PCP Family Medicine Geriatric Medicine
DX: Z53.21 Procedure and treatment not carried out due to patient leaving prior to being seen by health care provider (principal)
CPT/HCPCS: 82962

== ENCOUNTER → 2024-09-24 | Outpatient (CLI) | payer MEDICAID, SELFPAY ==
[2024-09-24 14:37] LABS: Absolute Lymphocyte Count 1.53 X10^3/uL (0.83-4.51); Absolute Neutrophil Count 4.4 X10^3/uL (2.0-7.7); Basophil# 0.04 X10^3/uL; Basophil% 0.6 % (0-1); Eosinophils% 4.3 % (0-5); Hemoglobin 12.8 g/dL (12.0-15.0); Lymphocyte # 1.53 X10^3/ul (0.83-4.51); Mean Corpuscular Hgb 31.1 pg (27.0-32.0); Mean Corpuscular Volume 97.1 fL (81-99); Mean Platelet Vol. 8.3 fl (6.2-12.0); Monocyte# 0.67 X10^3/uL; Monocyte% 9.6 % (0-10); NRBC Flagged by Analyzer 0 % (0-5); Neutrophil % 63.1 % (47-70); Platelet Count 329 K/mm3 (150-450); RBC Distribution Width CV 14.9 % (11.6-14.6); RBC Distribution Width SD 53.1 fl (35.1-43.9); Red Blood Count 4.12 M/mm3 (4.2-5.4)
[2024-09-24 15:12] LABS: ALB/GLOB Ratio 1.1 RATIO (0.9-2.4); AST(SGOT) 17 U/L (15-37); Alanine Aminotransfer ALT/SGPT 35 U/L (13-56); Albumin, Serum 3.5 g/dL (3.2-5.0); Alkaline Phosphatase 129 U/L (45-117); Anion Gap 5 (5-15); BUN 31 mg/dL (7-18); BUN/Creat Ratio 24.8 RATIO (10-20); Calcium,Total 8.9 mg/dL (8.5-10.1); Chloride 111 mmol/L (98-107); Cholesterol 152 mg/dL (200); Creatinine, Serum 1.25 mg/dL (0.55-1.02); EST Glomerular Filtration Rate 47 mL/min (>60); Est Glom Filt Rate - Afr Amer 56 mL/min (>60); Globulin 3.3 g/dL (2.2-4.2); Glucose 192 mg/dL (74-106); High Density Lipoprotein 56 mg/dL; Potassium 4.8 mmol/L (3.5-5.1); Protein, Total 6.8 g/dL (6.4-8.2); Sodium Level 137 mmol/L (136-145); Thyroid Stim Hormone (TSH) 0.356 uIU/mL (0.358-3.740); Triglycerides 198 mg/dL; Very Low Density Lipoprotein 40 mg/dL (5-40)
[2024-09-24 19:24] LABS: Hemoglobin A1c 6.9 % (3.8-5.6)
== END | disposition home or self-care (01) ==
LOC: POLAB3 14:17
PROVIDERS: PCP Family Medicine Geriatric Medicine; Visit Provider Family Medicine Geriatric Medicine
DX: E78.5 Hyperlipidemia, unspecified (principal); E11.65 Type 2 diabetes mellitus with hyperglycemia; I10 Essential (primary) hypertension
CPT/HCPCS: 36415; 80053; 80061; 83036; 84443; 85025

== ENCOUNTER → 2024-12-09 | Outpatient (CLI) | payer MEDICAID, SELFPAY | END | disposition home or self-care (01) | LOC: LABSPEC 18:25 | PROVIDERS: PCP Family Medicine Geriatric Medicine; Referring Provider Family Medicine Geriatric Medicine; Visit Provider Family Medicine Geriatric Medicine | DX: R06.2 Wheezing (principal); R05.9 Cough, unspecified | CPT/HCPCS: 87631 ==

== ENCOUNTER → 2024-12-23 | Outpatient (CLI) | payer MEDICAID, SELFPAY ==
[2024-12-23 10:13] LABS: Absolute Lymphocyte Count 1.27 X10^3/uL (0.83-4.51); Basophil# 0.04 X10^3/uL; Basophil% 0.7 % (0-1); Eosinophil# 0.16 X10^3/uL; Eosinophils% 2.6 % (0-5); Hematocrit 35.3 % (37-47); Hemoglobin 11.3 g/dL (12.0-15.0); Lymphocyte # 1.27 X10^3/ul (0.83-4.51); Mean Corpuscular Hgb 31.1 pg (27.0-32.0); Mean Corpuscular Volume 97.2 fL (81-99); Mean Platelet Vol. 9.2 fl (6.2-12.0); Monocyte# 0.53 X10^3/uL; Monocyte% 8.8 % (0-10); NRBC Flagged by Analyzer 0 % (0-5); Neutrophil # 4.01 X10^3/uL (2.7-7.7); Neutrophil % 66.4 % (47-70); Platelet Count 276 K/mm3 (150-450); RBC Distribution Width CV 14.7 % (11.6-14.6); RBC Distribution Width SD 52.3 fl (35.1-43.9); Red Blood Count 3.63 M/mm3 (4.2-5.4)
[2024-12-23 10:37] LABS: Hemoglobin A1c 8.2 % (<=5.6)
[2024-12-23 10:49] LABS: ALB/GLOB Ratio 1.7 RATIO (0.9-2.4); AST(SGOT) 19 U/L (<=31); Alanine Aminotransfer ALT/SGPT 23 U/L (<=34); Albumin, Serum 3.9 g/dL (3.5-5.0); Alkaline Phosphatase 91 U/L (35-104); Anion Gap 12 (5-15); BUN 22 mg/dL (4-19); BUN/Creat Ratio 19.5 RATIO (10-20); Carbon Dioxide 20.6 mmol/L (21.0-32.0); Chloride 106 mmol/L (98-108); Cholesterol 142 mg/dL (<=200); Creatinine, Serum 1.14 mg/dL (0.70-1.20); EST Glomerular Filtration Rate 55 (>60); Globulin 2.3 g/dL (2.2-4.2); Glucose 140 mg/dL (70-99); High Density Lipoprotein 45 mg/dL; Low Density Lipoprotein Calc. 51 mg/dL; Potassium 4.5 mmol/L (3.3-5.1); Protein, Total 6.2 g/dL (5.9-8.4); Sodium Level 139 mmol/L (133-145); Thyroid Stim Hormone (TSH) 0.562 uIU/mL (0.300-4.200); Total Bilirubin 0.43 mg/dL (0.00-1.30); Triglycerides 230 mg/dL; Very Low Density Lipoprotein 46 mg/dL (5-40); cholesterol:hdl ratio screen 3.13
== END | disposition home or self-care (01) ==
LOC: LAB 09:40
PROVIDERS: PCP Family Medicine Geriatric Medicine; Referring Provider Family Medicine Geriatric Medicine; Visit Provider Family Medicine Geriatric Medicine
DX: E11.65 Type 2 diabetes mellitus with hyperglycemia (principal); I10 Essential (primary) hypertension; E78.5 Hyperlipidemia, unspecified
CPT/HCPCS: 36415; 80053; 80061; 83036; 84443; 85025

== ENCOUNTER → 2024-12-25 | Outpatient (CLI) | payer MEDICAID, SELFPAY ==
--- NOTE | 2024-12-25 07:27 | BI_ITS ---
EXAM: SCRN MAMM (CAD)W/ELAINA BILAT 12/25/2024 CLINICAL HISTORY: F, Age 59 y/o , SCREENING TECHNIQUE: Bilateral screening digital breast tomosynthesis with 2D and 3D images. Computer aided detection. COMPARISON: Prior exam(s) dated 12/25/2023, 12/06/2022. FINDINGS: TISSUE DENSITY: The breast tissue is composed of scattered area of fibroglandular density. Bilateral Breast Mammographic Findings: No significant masses, calcifications or other abnormalities are identified. BI/SCRN MAMM (CAD)W/ELAINA BILAT IMPRESSION: Right Breast: BIRADS 1 NEGATIVE. Left Breast: BIRADS 1 NEGATIVE. OVERALL FINAL ASSESSMENT: BIRADS 1 NEGATIVE. RECOMMENDATION: Routine annual follow-up in 1 Year A letter with findings and recommendations will be mailed to the patient. Reading Location: [facility]
== END | disposition home or self-care (01) ==
LOC: OPBI 07:24
PROVIDERS: PCP Family Medicine Geriatric Medicine; Referring Provider Family Medicine Geriatric Medicine; Visit Provider Family Medicine Geriatric Medicine
DX: Z12.31 Encounter for screening mammogram for malignant neoplasm of breast (principal)
CPT/HCPCS: 77063; 77067

== ENCOUNTER → 2025-02-03 | Outpatient (CLI) | payer MEDICAID, SELFPAY ==
[2025-02-03 10:56] LABS: Albumin, Serum 4.2 g/dL (3.5-5.0); Anion Gap 12 (5-15); BUN 16 mg/dL (4-19); BUN/Creat Ratio 15.2 RATIO (10-20); Calcium,Total 9.2 mg/dL (7.6-11.0); Carbon Dioxide 21.1 mmol/L (21.0-32.0); Chloride 105 mmol/L (98-108); Creatinine, Serum 1.07 mg/dL (0.70-1.20); EST Glomerular Filtration Rate 60 (>60); Glucose 226 mg/dL (70-99); Phosphorus 3.6 mg/dL (2.7-4.5); Sodium Level 138 mmol/L (133-145); Vitamin D,25 Hydroxy 11.3 ng/mL (30-100)
== END | disposition home or self-care (01) ==
LOC: LAB 09:11
PROVIDERS: PCP Family Medicine Geriatric Medicine; Referring Provider Internal Medicine Nephrology; Visit Provider Internal Medicine Nephrology
DX: N18.31 Chronic kidney disease, stage 3a (principal)
CPT/HCPCS: 36415; 80069; 82306

== ENCOUNTER → 2025-02-18 | Outpatient (CLI) | payer MEDICAID, SELFPAY ==
--- NOTE | 2025-02-18 12:35 | CT_ITS ---
PROCEDURE: LOW DOSE CT LUNG SCREENING 02/18/2025 REASON FOR EXAM: LUNG CANCER SCREENING Current smoker. Smoked for 40+ years. TECHNIQUE: LOW DOSE CT LUNG SCREENING Coronal and Sagittal reconstruction series were provided. One or more dose reduction techniques were used (e.g., Automated exposure control, adjustment of the mA and/or kV according to patient size, use of iterative reconstruction technique). REFERENCE LINK: [employer] Lung-RADS RADIATION DOSE SUMMARY: CTDlvol: 3.02 mGy DLP: 91.38 mGycm COMPARISON: Prior CT scan of the thorax dated April 22, 2024. FINDINGS: PULMONARY NODULES: (Only nodules >3mm are reported) Nodules described below are on series 1 unless otherwise specified. Pulmonary Nodules: No suspicious pulmonary nodule seen. Hardware:None Lymph Nodes:None Heart and Vasculature:Atherosclerotic calcific plaques of the aortic arch. Coronary Artery Calcifications: Absent Lungs and Airways: Mild emphysematous changes are present. Stable mild scarring in the right middle lobe and left lower lobe. Pleura:No pleural effusion. Upper Abdomen:Unremarkable Bones:Degenerative changes of the thoracic spine. CT/Low Dose CT Lung Screening IMPRESSION: Stable examination. Coronary artery calcification (CAC) is is absent Lung-RADS Category: 2 BENIGN (BASED ON IMAGING FEATURES OR INDOLENT BEHAVIOR). RECOMMEND 12-MONTH SCREENING LDCT. Other Significant Findings: None. Reading Location: [id number]
== END | disposition home or self-care (01) ==
LOC: CT 12:35
PROVIDERS: PCP Family Medicine Geriatric Medicine; Referring Provider Nurse Practitioner Family; Visit Provider Nurse Practitioner Family
DX: Z12.2 Encounter for screening for malignant neoplasm of respiratory organs (principal); Z87.891 Personal history of nicotine dependence
CPT/HCPCS: 71271

== ENCOUNTER 2025-03-06 08:21 | Day surgery (SDC) | payer MEDICAID, SELFPAY ==
--- NOTE | 2025-03-04 19:39 | PAT.ANESEVAL ---
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 When Was Last Pacemaker Check QUESTION #4 FULL TEXT: You/Your Family Experience fever (hyperthermia) with Anesthesia Last Oral Intake Last Oral intake: Last Oral Intake NPO since Meds taken in AM with sips of water? 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 Female Yes 03/04/25 10:50 HX of Motion Sickness No 03/04/25 10:50 HX of N/V After Surgery No 03/04/25 10:50 Non-Smoker Yes 03/04/25 10:50 Duration of Surgery greater No 03/04/25 10:50 than 60 minutes Number of Risk Factors 2 03/04/25 10:50 PONV Score Moderate Risk 03/04/25 10:50 Height & Weight Height & Weight: Anesthesia: Height & Weight Height 5 ft 4 in 12/31/24 11:12 Respiratory Assessment Respiratory Assessment - weigh tank operator: Respiratory Tract Infection Hx - weigh tank operator Hx Respiratory Tract Infection No 03/04/25 10:50 STOP Sleep Apnea STOP Sleep Apnea - weigh tank operator: STOP Sleep Apnea - weigh tank operator Hx Hypertension Yes: CONTROLLED ON MED 03/04/25 10:50 Hx Sleep Apnea No 03/04/25 10:50 CPAP No 03/04/25 10:50 BIPAP No 03/04/25 10:50 Do you snore loudly (louder No 03/04/25 10:50 than talking or can be heard Do you often feel tired/ No 03/04/25 10:50 fatigued/ sleepy during daytime? Has anyone observed you stop No 03/04/25 10:50 breathing during sleep? STOP Results Negative 03/04/25 10:50 QUESTION #5 FULL TEXT : Do you snore loudly (louder than talking or can be heard through closed doors)? 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 Specify any problems Hx of Preganancy in last 3 No 03/04/25 10:50 Months Nurse Filling Out Transfusion VCHRISTIN 03/04/25 10:50 & Questions: Date: 03/04/25 03/04/25 10:50 Time: 10:51 03/04/25 10:50 Patient unable to answer at this time (ie. 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: /Reproductive Hx- weigh tank operator Hx Now Gestational Age (in weeks): EDC: Hx Hx Para Hx Section SAB No 03/04/25 10:50 PFSH Medical History Anemia in chronic kidney disease Post-menopausal Thyroid disease Anemia Former smoker History of heart attack History of tobacco use Tobacco use disorder, continuous Encounter for screening for malignant neoplasm of lung in current smoker with 30 pack year history or greater Anemia, chronic renal failure Encounter for screening for malignant neoplasm of lung in former smoker who quit in past 15 years with 30 pack year history or greater Acute kidney injury Hypertension CRF (chronic renal failure) Wears glasses Wears partial dentures Abrasion Diabetes Thyroid disease Ambulates with cane Low iron High cholesterol Easy bruising Blackout Dietary restriction Gastric reflux CPAP (continuous positive airway pressure) dependence Shortness of breath on exertion History of pain when walking History of stress test Cardiology follow-up encounter Iron deficiency anemia due to chronic blood loss Sleep apnea Hypertension History of back problems History of non-ST elevation myocardial infarction (NSTEMI) (01/17/20) Biliary dyskinesia Left carotid bruit Chronic anemia Hypoglycemia Syncope Constipation Hemorrhoid Arthritis Chest pain Segmental and somatic dysfunction of pelvic region Segmental and somatic dysfunction of lumbar region COPD exacerbation Fibroadenoma of left breast Microcalcification of left breast on mammogram Diabetes type 2, controlled Insomnia Depression Hypothyroidism Abnormal stress test Unstable angina Left arm numbness Right lower lobe pneumonia COPD (chronic obstructive pulmonary disease) with emphysema Dyslipidemia Home Medications ?Medication ?Instructions ?Recorded ?Last Taken ?Type atorvastatin 40 mg tablet 40 mg PO QHS cholesterol 08/11/14 02/17/22 History pantoprazole 40 mg tablet,delayed 40 mg PO BID reflux 05/15/21 02/27/24 History release metformin 500 mg tablet 500 mg PO BID DM 10/05/21 02/18/22 History doxepin 50 mg capsule 50 mg PO QHS DEPRESSION 02/18/22 02/17/22 History lisinopril 2.5 mg tablet 2.5 mg PO DAILY BP 02/18/22 02/27/24 History ferrous sulfate 325 mg (65 mg 325 mg PO DAILY 08/17/22 02/24/25 History iron) tablet (Iron (ferrous sulfate)) ascorbic acid (vitamin C) 500 mg 500 mg PO DAILY 02/19/24 Unknown History tablet,extended release (C Complex) paroxetine HCl 20 mg tablet 20 mg PO DAILY 04/22/24 Unknown History pioglitazone 15 mg tablet 15 mg PO DAILY 04/22/24 Unknown History levothyroxine 25 mcg tablet 25 mcg PO .qod 10/01/24 Unknown History levothyroxine 50 mcg tablet 50 mcg PO .qod THYROID 10/01/24 Unknown History colestipol 1 gram tablet 1 g PO DAILY 12/03/24 Unknown History cholecalciferol (vitamin D3) 125 125 mcg PO BID 02/25/25 Unknown History mcg (5,000 unit) capsule Allergy/AdvReac Type Severity Reaction Status Date / Time prochlorperazine edisylate Allergy Severe Rash Verified 03/04/25 10:45 (From Compazine) prochlorperazine maleate Allergy Severe Rash Verified 03/04/25 10:45 (From Compazine) Family History Father Myocardial infarction CVA (cerebral vascular accident) Mother Heart disease Seizures Lung cancer Sister Seizures Grandmother Cancer Grandfather Cancer Aunt Breast cancer Surgical History (Updated 03/04/25 @ 10:50 by Marycarmen High) History of esophagogastroduodenoscopy (EGD) Hx of arthroscopy of knee History of cardiac catheterization Hx of colonoscopy History of esophagogastroduodenoscopy (EGD) Hx laparoscopic cholecystectomy Hx of sinus surgery History of carpal tunnel surgery of left wrist History of cholecystectomy (01/17/20) History of left heart catheterization (02/10/20) history stereotactic biopsy left breast (~12/22/17) History of hysterectomy H/O: hysterectomy heart catheterization Social History household members: none Smoking Status: Former smoker second hand exposure: No alcohol intake: never substance use type: does not use caffeine: Yes what type of physical activity do you participate in: walking frequency: daily Audit: Pertinent Findings Pertinent Findings EKG Perinent findings: April 22, 2024. Sinus tachycardia [address] abnormality. Heart catheterization pertinent findings: February 10, 2020. Normal coronary arteries. Consult pertinent findings: May 08, 2020. Toni MONTILLA. 1. Chest pain-no further symptoms. Patient had normal coronary arteries on her heart cath. Patient is to continue her isosorbide. Recommendation Anesthesia Recommendation Anesthesia recommendation: OPTIMIZED for anesthesia
--- NOTE | 2025-03-04 19:39 | PAT.ANESEVAL ---
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 When Was Last Pacemaker Check QUESTION #4 FULL TEXT: You/Your Family Experience fever (hyperthermia) with Anesthesia Last Oral Intake Last Oral intake: Last Oral Intake NPO since Meds taken in AM with sips of water? 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 Has anyone observed you stop No 03/04/25 10:50 breathing during sleep? STOP Results Negative 03/04/25 10:50 QUESTION #5 FULL TEXT : Do you snore loudly (louder than talking or can be heard through closed doors)? 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 Specify any problems Hx of Preganancy in last 3 No 03/04/25 10:50 Months Nurse Filling Out Transfusion VCHRISTIN 03/04/25 10:50 & Questions: Date: 03/04/25 03/04/25 10:50 Time: 10:51 03/04/25 10:50 Patient unable to answer at this time (ie. 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: /Reproductive Hx- vice president business development Hx Now Gestational Age (in weeks): EDC: Hx Hx Para Hx Section SAB No 03/04/25 10:50 PFSH Medical History Anemia in chronic kidney disease Post-menopausal Thyroid disease Anemia Former smoker History of heart attack History of tobacco use Tobacco use disorder, continuous Encounter for screening for malignant neoplasm of lung in current smoker with 30 pack year history or greater Anemia, chronic renal failure Encounter for screening for malignant neoplasm of lung in former smoker who quit in past 15 years with 30 pack year history or greater Acute kidney injury Hypertension CRF (chronic renal failure) Wears glasses Wears partial dentures Abrasion Diabetes Thyroid disease Ambulates with cane Low iron High cholesterol Easy bruising Blackout Dietary restriction Gastric reflux CPAP (continuous positive airway pressure) dependence Shortness of breath on exertion History of pain when walking History of stress test Cardiology follow-up encounter Iron deficiency anemia due to chronic blood loss Sleep apnea Hypertension History of back problems History of non-ST elevation myocardial infarction (NSTEMI) (01/17/20) Biliary dyskinesia Left carotid bruit Chronic anemia Hypoglycemia Syncope Constipation Hemorrhoid Arthritis Chest pain Segmental and somatic dysfunction of pelvic region Segmental and somatic dysfunction of lumbar region COPD exacerbation Fibroadenoma of left breast Microcalcification of left breast on mammogram Diabetes type 2, controlled Insomnia Depression Hypothyroidism Abnormal stress test Unstable angina Left arm numbness Right lower lobe pneumonia COPD (chronic obstructive pulmonary disease) with emphysema Dyslipidemia Home Medications ?Medication ?Instructions ?Recorded ?Last Taken ?Type atorvastatin 40 mg tablet 40 mg PO QHS cholesterol 08/11/14 02/17/22 History pantoprazole 40 mg tablet,delayed 40 mg PO BID reflux 05/15/21 02/27/24 History release metformin 500 mg tablet 500 mg PO BID DM 10/05/21 02/18/22 History doxepin 50 mg capsule 50 mg PO QHS DEPRESSION 02/18/22 02/17/22 History lisinopril 2.5 mg tablet 2.5 mg PO DAILY BP 02/18/22 02/27/24 History ferrous sulfate 325 mg (65 mg 325 mg PO DAILY 08/17/22 02/24/25 History iron) tablet (Iron (ferrous sulfate)) ascorbic acid (vitamin C) 500 mg 500 mg PO DAILY 02/19/24 Unknown History tablet,extended release (C Complex) paroxetine HCl 20 mg tablet 20 mg PO DAILY 04/22/24 Unknown History pioglitazone 15 mg tablet 15 mg PO DAILY 04/22/24 Unknown History levothyroxine 25 mcg tablet 25 mcg PO .qod 10/01/24 Unknown History levothyroxine 50 mcg tablet 50 mcg PO .qod THYROID 10/01/24 Unknown History colestipol 1 gram tablet 1 g PO DAILY 12/03/24 Unknown History cholecalciferol (vitamin D3) 125 125 mcg PO BID 02/25/25 Unknown History mcg (5,000 unit) capsule Allergy/AdvReac Type Severity Reaction Status Date / Time prochlorperazine edisylate Allergy Severe Rash Verified 03/04/25 10:45 (From Compazine) prochlorperazine maleate Allergy Severe Rash Verified 03/04/25 10:45 (From Compazine) Family History Father Myocardial infarction CVA (cerebral vascular accident) Mother Heart disease Seizures Lung cancer Sister Seizures Grandmother Cancer Grandfather Cancer Aunt Breast cancer Surgical History (Updated 03/04/25 @ 10:50 by Marycarmen High) History of esophagogastroduodenoscopy (EGD) Hx of arthroscopy of knee History of cardiac catheterization Hx of colonoscopy History of esophagogastroduodenoscopy (EGD) Hx laparoscopic cholecystectomy Hx of sinus surgery History of carpal tunnel surgery of left wrist History of cholecystectomy (01/17/20) History of left heart catheterization (02/10/20) history stereotactic biopsy left breast (~12/22/17) History of hysterectomy H/O: hysterectomy heart catheterization Social History household members: none Smoking Status: Former smoker second hand exposure: No alcohol intake: never substance use type: does not use caffeine: Yes what type of physical activity do you participate in: walking frequency: daily Audit: Pertinent Findings Pertinent Findings EKG Perinent findings: April 22, 2024. Sinus tachycardia [address] abnormality. Heart catheterization pertinent findings: February 10, 2020. Normal coronary arteries. Consult pertinent findings: May 08, 2020. Toni MONTILLA. 1. Chest pain-no further symptoms. Patient had normal coronary arteries on her heart cath. Patient is to continue her isosorbide. Recommendation Anesthesia Recommendation Anesthesia recommendation: OPTIMIZED for anesthesia
[2025-03-06] VITALS (7 sets, daily range): BP systolic 107–134; BP diastolic 57–66; PULSE 67–96; RESP 14–16; TEMP 35.8–36.6; O2SAT 98–99; BMI 32.7
[2025-03-06] MEDS: Lactated Ringers 1,000 ML 15 ML IV (09:01)
--- NOTE | 2025-03-06 09:21 | PCM.PRE.AN2 ---
ASA Classification* ASA Classification ASA Classification: 3 Assessment & Plan Anesthesia* Anesthesia Assessment Anesthesia Assessment: Discussed sedation and/or anesthesia options, risks, benefits, and alternatives with patient/parents/legal guardian/POA. Questions invited. The patient/parents/legal guardian/POA seems to understand and agrees to proceed with anesthesia plan. Reviewed the physical assessment, medical history, allergy history and patient home medications list prior to surgery/procedure/anesthetic and documented any changes. Performed airway and anesthesia risk assessments. Anesthesia Type Anesthesia Type: MAC History Source History Obtained from:: Patient and Chart Anesthesia Focused Assessment* Temperature: 97.8 F Pulse Rate: 96 Blood Pressure: 134/57 Respiratory Rate: 16 Pulse Ox: 99 Oxygen Delivery Method: Room Air Airway Assessment Mouth opens: >3 cm Mallampati Score: I Teeth Condition: Partial (Lower) Neck Range of motion (ROM): Full ROM Labs Anesthesia Preop lab: CBC WBC 5.6 K/mm3 (4.4-11.0) 02/25/25 09:02/25/25 RBC 3.33 M/mm3 (4.2-5.4) L 02/25/25 09:23 02/25/25 Hgb 10.9 g/dL (12.0-15.0) L 02/25/25 09:23 02/25/25 Hct 32.5 % (37-47) L 02/25/25 09:23 02/25/25 Plt Count 320 K/mm3 (150-450) 02/25/25 09:23 02/25/25 CHEMISTRY Potassium 5.0 mmol/L (3.3-5.1) 02/03/25 09:18 02/03/25 Sodium 138 mmol/L (133-145) 02/03/25 09:18 02/03/25 Magnesium 2.0 mg/dL (1.6-2.6) 02/20/22 04:29 02/20/22 Phosphorus 3.6 mg/dL (2.7-4.5) 02/03/25 09:18 02/03/25 BUN 16 mg/dL (4-19) 02/03/25 09:18 02/03/25 Creatinine 1.07 mg/dL (0.70-1.20) 02/03/25 09:18 02/03/25 Glucose 226 mg/dL (70-99) H 02/03/25 09:18 02/03/25 POC Glucose 242 mg/dL (74-106) H 09/23/24 21:26 09/23/24 TSH 0.562 uIU/mL (0.300-4.200) 12/23/24 09:36 12/23/24 COAG PT 12.4 SECONDS (11.7-14.9) 01/16/20 09:21 01/16/20 Pre-Assessment Diagnosis/Proposed Procedure Planned Operative Procedure(s): COLONOSCOPY Anesthesia History 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 When Was Last Pacemaker Check QUESTION #4 FULL TEXT: You/Your Family Experience fever (hyperthermia) with Anesthesia Last Oral Intake Last Oral intake: Last Oral Intake NPO since 06:00 03/06/25 08:53 Meds taken in AM with sips of Yes 03/06/25 08:53 water? 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 Female Yes 03/04/25 10:50 HX of Motion Sickness No 03/04/25 10:50 HX of N/V After Surgery No 03/04/25 10:50 Non-Smoker Yes 03/04/25 10:50 Duration of Surgery greater No 03/04/25 10:50 than 60 minutes Number of Risk Factors 2 03/04/25 10:50 PONV Score Moderate Risk 03/04/25 10:50 Height & Weight Height & Weight: Anesthesia: Height & Weight Height 5 ft 03/06/25 08:53 Weight: 76 kg 03/06/25 08:53 Body Mass Index (BMI) 32.7 03/06/25 08:53 Respiratory Assessment Respiratory Assessment - 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 Has anyone observed you stop No 03/04/25 10:50 breathing during sleep? STOP Results Negative 03/04/25 10:50 QUESTION #5 FULL TEXT : Do you snore loudly (louder than talking or can be heard through closed doors)? 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 Specify any problems Hx of Preganancy in last 3 No 03/04/25 10:50 Months Nurse Filling Out Transfusion VCHRISTIN 03/04/25 10:50 & Questions: Date: 03/04/25 03/04/25 10:50 Time: 10:51 03/04/25 10:50 Patient unable to answer at this time (ie. 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: /Reproductive Hx- supervisor engine assembly Hx Now Gestational Age (in weeks): EDC: Hx Hx Para Hx Section SAB No 03/04/25 10:50 Active Medications Active Medications: Current Medications Generic Name Dose Route Start Last Admin Trade Name Robina PRN Reason Stop Dose Admin Lactated Ringer's 1,000 mls @ 15 mls/hr 03/06/25 08:45 03/06/25 09:01 IV 15 mls/hr .Q48H RYAN Administration PFSH Medical History Anemia in chronic kidney disease Post-menopausal Thyroid disease Anemia Former smoker History of heart attack History of tobacco use Tobacco use disorder, continuous Encounter for screening for malignant neoplasm of lung in current smoker with 30 pack year history or greater Anemia, chronic renal failure Encounter for screening for malignant neoplasm of lung in former smoker who quit in past 15 years with 30 pack year history or greater Acute kidney injury Hypertension CRF (chronic renal failure) Wears glasses Wears partial dentures Abrasion Diabetes Thyroid disease Ambulates with cane Low iron High cholesterol Easy bruising Blackout Dietary restriction Gastric reflux CPAP (continuous positive airway pressure) dependence Shortness of breath on exertion History of pain when walking History of stress test Cardiology follow-up encounter Iron deficiency anemia due to chronic blood loss Sleep apnea Hypertension History of back problems History of non-ST elevation myocardial infarction (NSTEMI) (01/17/20) Biliary dyskinesia Left carotid bruit Chronic anemia Hypoglycemia Syncope Constipation Hemorrhoid Arthritis Chest pain Segmental and somatic dysfunction of pelvic region Segmental and somatic dysfunction of lumbar region COPD exacerbation Fibroadenoma of left breast Microcalcification of left breast on mammogram Diabetes type 2, controlled Insomnia Depression Hypothyroidism Abnormal stress test Unstable angina Left arm numbness Right lower lobe pneumonia COPD (chronic obstructive pulmonary disease) with emphysema Dyslipidemia Home Medications ?Medication ?Instructions ?Recorded ?Last Taken ?Type atorvastatin 40 mg tablet 40 mg PO QHS cholesterol 08/11/14 03/05/25 History pantoprazole 40 mg tablet,delayed 40 mg PO BID reflux 05/15/21 03/05/25 History release metformin 500 mg tablet 500 mg PO BID DM 10/05/21 03/05/25 History doxepin 50 mg capsule 50 mg PO QHS DEPRESSION 02/18/22 03/05/25 History lisinopril 2.5 mg tablet 2.5 mg PO DAILY BP 02/18/22 03/05/25 History ferrous sulfate 325 mg (65 mg 325 mg PO DAILY 08/17/22 02/24/25 History iron) tablet (Iron (ferrous sulfate)) ascorbic acid (vitamin C) 500 mg 500 mg PO DAILY 02/19/24 03/05/25 History tablet,extended release (C Complex) paroxetine HCl 20 mg tablet 20 mg PO DAILY 04/22/24 03/05/25 History pioglitazone 15 mg tablet 15 mg PO DAILY 04/22/24 03/05/25 History levothyroxine 25 mcg tablet 25 mcg PO .qod 10/01/24 03/05/25 History levothyroxine 50 mcg tablet 50 mcg PO .qod THYROID 10/01/24 03/06/25 History colestipol 1 gram tablet 1 g PO DAILY 12/03/24 Unknown History cholecalciferol (vitamin D3) 125 125 mcg PO BID 02/25/25 03/05/25 History mcg (5,000 unit) capsule Allergy/AdvReac Type Severity Reaction Status Date / Time prochlorperazine edisylate Allergy Severe Rash Verified 03/06/25 08:51 (From Compazine) prochlorperazine maleate Allergy Severe Rash Verified 03/06/25 08:51 (From Compazine) Family History Father Myocardial infarction CVA (cerebral vascular accident) Mother Heart disease Seizures Lung cancer Sister Seizures Grandmother Cancer Grandfather Cancer Aunt Breast cancer Surgical History History of esophagogastroduodenoscopy (EGD) Hx of arthroscopy of knee History of cardiac catheterization Hx of colonoscopy History of esophagogastroduodenoscopy (EGD) Hx laparoscopic cholecystectomy Hx of sinus surgery History of carpal tunnel surgery of left wrist History of cholecystectomy (01/17/20) History of left heart catheterization (02/10/20) history stereotactic biopsy left breast (~12/22/17) History of hysterectomy H/O: hysterectomy heart catheterization Social History household members: none Smoking Status: Former smoker (quit smoking September 2023) second hand exposure: No alcohol intake: never substance use type: does not use caffeine: Yes what type of physical activity do you participate in: walking frequency: daily Review of Systems (Anesthesia) ROS Narrative System reviewed and no additional complaints, except as documented.
--- NOTE | 2025-03-06 09:21 | PCM.PRE.AN2 ---
ASA Classification* ASA Classification ASA Classification: 3 Assessment & Plan Anesthesia* Anesthesia Assessment Anesthesia Assessment: Discussed sedation and/or anesthesia options, risks, benefits, and alternatives with patient/parents/legal guardian/POA. Questions invited. The patient/parents/legal guardian/POA seems to understand and agrees to proceed with anesthesia plan. Reviewed the physical assessment, medical history, allergy history and patient home medications list prior to surgery/procedure/anesthetic and documented any changes. Performed airway and anesthesia risk assessments. Anesthesia Type Anesthesia Type: MAC History Source History Obtained from:: Patient and Chart Anesthesia Focused Assessment* Temperature: 97.8 F Pulse Rate: 96 Blood Pressure: 134/57 Respiratory Rate: 16 Pulse Ox: 99 Oxygen Delivery Method: Room Air Airway Assessment Mouth opens: >3 cm Mallampati Score: I Teeth Condition: Partial (Lower) Neck Range of motion (ROM): Full ROM Labs Anesthesia Preop lab: CBC WBC 5.6 K/mm3 (4.4-11.0) 02/25/25 09:02/25/25 RBC 3.33 M/mm3 (4.2-5.4) L 02/25/25 09:23 02/25/25 Hgb 10.9 g/dL (12.0-15.0) L 02/25/25 09:23 02/25/25 Hct 32.5 % (37-47) L 02/25/25 09:23 02/25/25 Plt Count 320 K/mm3 (150-450) 02/25/25 09:23 02/25/25 CHEMISTRY Potassium 5.0 mmol/L (3.3-5.1) 02/03/25 09:18 02/03/25 Sodium 138 mmol/L (133-145) 02/03/25 09:18 02/03/25 Magnesium 2.0 mg/dL (1.6-2.6) 02/20/22 04:29 02/20/22 Phosphorus 3.6 mg/dL (2.7-4.5) 02/03/25 09:18 02/03/25 BUN 16 mg/dL (4-19) 02/03/25 09:18 02/03/25 Creatinine 1.07 mg/dL (0.70-1.20) 02/03/25 09:18 02/03/25 Glucose 226 mg/dL (70-99) H 02/03/25 09:18 02/03/25 POC Glucose 242 mg/dL (74-106) H 09/23/24 21:26 09/23/24 TSH 0.562 uIU/mL (0.300-4.200) 12/23/24 09:36 12/23/24 COAG PT 12.4 SECONDS (11.7-14.9) 01/16/20 09:21 01/16/20 Pre-Assessment Diagnosis/Proposed Procedure Planned Operative Procedure(s): COLONOSCOPY Anesthesia History Anesthesia History - staff consultant: Anesthesia History - staff consultant Hx Hospitalization No 03/04/25 10:50 Any Problems With Anesthesia No 03/04/25 10:50 Cholinesterase deficiency No 03/04/25 10:50 You/Your Family Experience No 03/04/25 10:50 fever (hyperthermia) with Relationship Recent Exposure to Contagious No 03/06/25 08:53 Disease Does patient have nerve No 03/04/25 10:50 stimulator Patient instructed to have device shut off --Does patient have Pacemaker No 03/06/25 08:53 or ICD? When Was Last Pacemaker Check QUESTION #4 FULL TEXT: You/Your Family Experience fever (hyperthermia) with Anesthesia Last Oral Intake Last Oral intake: Last Oral Intake NPO since 06:00 03/06/25 08:53 Meds taken in AM with sips of Yes 03/06/25 08:53 water? Meds patient instructed to levothyroxine 03/06/25 08:53 take am of surgery PONV PONV - staff consultant: PONV - staff consultant Female Yes 03/04/25 10:50 HX of Motion Sickness No 03/04/25 10:50 HX of N/V After Surgery No 03/04/25 10:50 Non-Smoker Yes 03/04/25 10:50 Duration of Surgery greater No 03/04/25 10:50 than 60 minutes Number of Risk Factors 2 03/04/25 10:50 PONV Score Moderate Risk 03/04/25 10:50 Height & Weight Height & Weight: Anesthesia: Height & Weight Height 5 ft 03/06/25 08:53 Weight: 76 kg 03/06/25 08:53 Body Mass Index (BMI) 32.7 03/06/25 08:53 Respiratory Assessment Respiratory Assessment - staff consultant: Respiratory Tract Infection Hx - staff consultant Hx Respiratory Tract Infection No 03/04/25 10:50 STOP Sleep Apnea STOP Sleep Apnea - staff consultant: STOP Sleep Apnea - staff consultant Hx Hypertension Yes: CONTROLLED ON MED 03/04/25 10:50 Hx Sleep Apnea No 03/04/25 10:50 CPAP No 03/04/25 10:50 BIPAP No 03/04/25 10:50 Do you snore loudly (louder No 03/04/25 10:50 than talking or can be heard Do you often feel tired/ No 03/04/25 10:50 fatigued/ sleepy during daytime? Has anyone observed you stop No 03/04/25 10:50 breathing during sleep? STOP Results Negative 03/04/25 10:50 QUESTION #5 FULL TEXT : Do you snore loudly (louder than talking or can be heard through closed doors)? 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 Specify any problems Hx of Preganancy in last 3 No 03/04/25 10:50 Months Nurse Filling Out Transfusion VCHRISTIN 03/04/25 10:50 & Questions: Date: 03/04/25 03/04/25 10:50 Time: 10:51 03/04/25 10:50 Patient unable to answer at this time (ie. confused, unrespo /Reproduction History /Reproductive History - staff consultant: /Reproductive Hx- staff consultant Hx Now Gestational Age (in weeks): EDC: Hx Hx Para Hx Section SAB No 03/04/25 10:50 Active Medications Active Medications: Current Medications Generic Name Dose Route Start Last Admin Trade Name Robina PRN Reason Stop Dose Admin Lactated Ringer's 1,000 mls @ 15 mls/hr 03/06/25 08:45 03/06/25 09:01 IV 15 mls/hr .Q48H RYAN Administration PFSH Medical History Anemia in chronic kidney disease Post-menopausal Thyroid disease Anemia Former smoker History of heart attack History of tobacco use Tobacco use disorder, continuous Encounter for screening for malignant neoplasm of lung in current smoker with 30 pack year history or greater Anemia, chronic renal failure Encounter for screening for malignant neoplasm of lung in former smoker who quit in past 15 years with 30 pack year history or greater Acute kidney injury Hypertension CRF (chronic renal failure) Wears glasses Wears partial dentures Abrasion Diabetes Thyroid disease Ambulates with cane Low iron High cholesterol Easy bruising Blackout Dietary restriction Gastric reflux CPAP (continuous positive airway pressure) dependence Shortness of breath on exertion History of pain when walking History of stress test Cardiology follow-up encounter Iron deficiency anemia due to chronic blood loss Sleep apnea Hypertension History of back problems History of non-ST elevation myocardial infarction (NSTEMI) (01/17/20) Biliary dyskinesia Left carotid bruit Chronic anemia Hypoglycemia Syncope Constipation Hemorrhoid Arthritis Chest pain Segmental and somatic dysfunction of pelvic region Segmental and somatic dysfunction of lumbar region COPD exacerbation Fibroadenoma of left breast Microcalcification of left breast on mammogram Diabetes type 2, controlled Insomnia Depression Hypothyroidism Abnormal stress test Unstable angina Left arm numbness Right lower lobe pneumonia COPD (chronic obstructive pulmonary disease) with emphysema Dyslipidemia Home Medications ?Medication ?Instructions ?Recorded ?Last Taken ?Type atorvastatin 40 mg tablet 40 mg PO QHS cholesterol 08/11/14 03/05/25 History pantoprazole 40 mg tablet,delayed 40 mg PO BID reflux 05/15/21 03/05/25 History release metformin 500 mg tablet 500 mg PO BID DM 10/05/21 03/05/25 History doxepin 50 mg capsule 50 mg PO QHS DEPRESSION 02/18/22 03/05/25 History lisinopril 2.5 mg tablet 2.5 mg PO DAILY BP 02/18/22 03/05/25 History ferrous sulfate 325 mg (65 mg 325 mg PO DAILY 08/17/22 02/24/25 History iron) tablet (Iron (ferrous sulfate)) ascorbic acid (vitamin C) 500 mg 500 mg PO DAILY 02/19/24 03/05/25 History tablet,extended release (C Complex) paroxetine HCl 20 mg tablet 20 mg PO DAILY 04/22/24 03/05/25 History pioglitazone 15 mg tablet 15 mg PO DAILY 04/22/24 03/05/25 History levothyroxine 25 mcg tablet 25 mcg PO .qod 10/01/24 03/05/25 History levothyroxine 50 mcg tablet 50 mcg PO .qod THYROID 10/01/24 03/06/25 History colestipol 1 gram tablet 1 g PO DAILY 12/03/24 Unknown History cholecalciferol (vitamin D3) 125 125 mcg PO BID 02/25/25 03/05/25 History mcg (5,000 unit) capsule Allergy/AdvReac Type Severity Reaction Status Date / Time prochlorperazine edisylate Allergy Severe Rash Verified 03/06/25 08:51 (From Compazine) prochlorperazine maleate Allergy Severe Rash Verified 03/06/25 08:51 (From Compazine) Family History Father Myocardial infarction CVA (cerebral vascular accident) Mother Heart disease Seizures Lung cancer Sister Seizures Grandmother Cancer Grandfather Cancer Aunt Breast cancer Surgical History History of esophagogastroduodenoscopy (EGD) Hx of arthroscopy of knee History of cardiac catheterization Hx of colonoscopy History of esophagogastroduodenoscopy (EGD) Hx laparoscopic cholecystectomy Hx of sinus surgery History of carpal tunnel surgery of left wrist History of cholecystectomy (01/17/20) History of left heart catheterization (02/10/20) history stereotactic biopsy left breast (~12/22/17) History of hysterectomy H/O: hysterectomy heart catheterization Social History household members: none Smoking Status: Former smoker (quit smoking September 2023) second hand exposure: No alcohol intake: never substance use type: does not use caffeine: Yes what type of physical activity do you participate in: walking frequency: daily Review of Systems (Anesthesia) ROS Narrative System reviewed and no additional complaints, except as documented.
--- NOTE | 2025-03-06 09:23 | PCM.HP.STD ---
HPI - General General Date of Admission: 03/06/25 Date of Service: 03/06/25 Chief Complaint: Anemia HPI Narrative FLORINDA LOPEZ, has a PMH DMII, renal failure, HTN, hyperlipidemia, CAD, cerebrovascular disease, COPD, TODD, obesity, smoker since teens. [facility] hematology established for anemia which she first notes when she was with her children. Hematology workup consistent with iron deficiency, B12 deficiency and chronic renal insufficiency. She was started on B12 replacement 2020, erythrocyte stimulating agent . 11.09.22 hematology felt there may be a GI component to her anemia and she was referred. *I established 12.02.22 with long-standing history of anemia. BM generally normal with intermittent loose stools. Start colestipol. ? Biochemical CBC, ESR, CMP, LDH, CRP, IgAME, DARREN comp, ANCA, celiac, hepatitis without pertinent abnormality. ? IgG L407. LISSETTE results unclear, repeat in 3-6 months. Contact 12.13.22 to report ongoing anemia and discuss next steps from a GI perspective being EGD, colonoscopy and/or capsule endoscopy. ? Capsule endoscopy 12.26.22 delayed passage into duodenum; mild lymphangiectasia. Recommend gastric emptying study Contact 02.01.23 with capsule results. She does not have gastroparesis symptoms at this time; will reevaluate in the future. OV 8.9.23 Feels she is doing better; loose stools have resolved with use of colestipol. Last hgb 10.5 OV 6.14.24 pt reports that she is feeling well overall and denies GI symptoms of concern at this time. Pt reports BM are normal; denies blood in the stool. Continues with colestipol and pantoprazole. EGD 7.2.24- Normal esophagus, gastric diverticulum, Scalloped mucosa in the duodenum OV 5.12.25- Pt well since last visit. States she had a positive fecal occult on 01/01 ordered by heme/onc due to drop in Hgb. PT says she is feeling overall well without any dizziness, weakness or SOB. BMs have been normal. Denies any dark or bloody stools. PFSH Medical History Anemia in chronic kidney disease Post-menopausal Thyroid disease Anemia Former smoker History of heart attack History of tobacco use Tobacco use disorder, continuous Encounter for screening for malignant neoplasm of lung in current smoker with 30 pack year history or greater Anemia, chronic renal failure Encounter for screening for malignant neoplasm of lung in former smoker who quit in past 15 years with 30 pack year history or greater Acute kidney injury Hypertension CRF (chronic renal failure) Wears glasses Wears partial dentures Abrasion Diabetes Thyroid disease Ambulates with cane Low iron High cholesterol Easy bruising Blackout Dietary restriction Gastric reflux CPAP (continuous positive airway pressure) dependence Shortness of breath on exertion History of pain when walking History of stress test Cardiology follow-up encounter Iron deficiency anemia due to chronic blood loss Sleep apnea Hypertension History of back problems History of non-ST elevation myocardial infarction (NSTEMI) (01/17/20) Biliary dyskinesia Left carotid bruit Chronic anemia Hypoglycemia Syncope Constipation Hemorrhoid Arthritis Chest pain Segmental and somatic dysfunction of pelvic region Segmental and somatic dysfunction of lumbar region COPD exacerbation Fibroadenoma of left breast Microcalcification of left breast on mammogram Diabetes type 2, controlled Insomnia Depression Hypothyroidism Abnormal stress test Unstable angina Left arm numbness Right lower lobe pneumonia COPD (chronic obstructive pulmonary disease) with emphysema Dyslipidemia Home Medications ?Medication ?Instructions ?Recorded ?Last Taken ?Type atorvastatin 40 mg tablet 40 mg PO QHS cholesterol 08/11/14 03/05/25 History pantoprazole 40 mg tablet,delayed 40 mg PO BID reflux 05/15/21 03/05/25 History release metformin 500 mg tablet 500 mg PO BID DM 10/05/21 03/05/25 History doxepin 50 mg capsule 50 mg PO QHS DEPRESSION 02/18/22 03/05/25 History lisinopril 2.5 mg tablet 2.5 mg PO DAILY BP 02/18/22 03/05/25 History ferrous sulfate 325 mg (65 mg 325 mg PO DAILY 08/17/22 02/24/25 History iron) tablet (Iron (ferrous sulfate)) ascorbic acid (vitamin C) 500 mg 500 mg PO DAILY 02/19/24 03/05/25 History tablet,extended release (C Complex) paroxetine HCl 20 mg tablet 20 mg PO DAILY 04/22/24 03/05/25 History pioglitazone 15 mg tablet 15 mg PO DAILY 04/22/24 03/05/25 History levothyroxine 25 mcg tablet 25 mcg PO .qod 10/01/24 03/05/25 History levothyroxine 50 mcg tablet 50 mcg PO .qod THYROID 10/01/24 03/06/25 History colestipol 1 gram tablet 1 g PO DAILY 12/03/24 Unknown History cholecalciferol (vitamin D3) 125 125 mcg PO BID 02/25/25 03/05/25 History mcg (5,000 unit) capsule Allergy/AdvReac Type Severity Reaction Status Date / Time prochlorperazine edisylate Allergy Severe Rash Verified 03/06/25 08:51 (From Compazine) prochlorperazine maleate Allergy Severe Rash Verified 03/06/25 08:51 (From [place]) Family History Father Myocardial infarction CVA (cerebral vascular accident) Mother Heart disease Seizures Lung cancer Sister Seizures Grandmother Cancer Grandfather Cancer Aunt Breast cancer Surgical History History of esophagogastroduodenoscopy (EGD) Hx of arthroscopy of knee History of cardiac catheterization Hx of colonoscopy History of esophagogastroduodenoscopy (EGD) Hx laparoscopic cholecystectomy Hx of sinus surgery History of carpal tunnel surgery of left wrist History of cholecystectomy (01/17/20) History of left heart catheterization (02/10/20) history stereotactic biopsy left breast (~12/22/17) History of hysterectomy H/O: hysterectomy heart catheterization Social History household members: none Smoking Status: Former smoker (quit smoking September 2023) second hand exposure: No alcohol intake: never substance use type: does not use caffeine: Yes what type of physical activity do you participate in: walking frequency: daily ROS Constitutional Constitutional: Denies fatigue, fever(s), poor appetite, weight gain or weight loss Gastrointestinal Gastrointestinal: Denies belching, bloating, change in bowel habits, change in stool character, chewing difficulty, coffee ground emesis, constipation, cramping, diarrhea, dyspepsia, dysphagia, early satiety, excessive flatus, fecal incontinence, heartburn, hematemesis, hematochezia, hemorrhoids, loose stools, melena, nausea, odynophagia, rectal bleeding, tenesmus, vomiting or weight changes Vital Signs Vital Signs Vital Signs: 03/06/25 08:53 03/06/25 08:53 Temperature 97.8 F Temperature Source Temporal Pulse Rate 96 Respiratory Rate 16 Respiratory Pattern Normal Blood Pressure 134/57 H Blood Pressure Mean 82 Blood Pressure Source Monitor Blood Pressure Position Semi-Fowlers Blood Pressure Location Right Arm Pulse Ox 99 Oxygen Delivery Method Room Air Weight Weight: 167 lb 8.821 oz Body Mass Index (BMI) 32.7 Physical Exam Const alert, oriented x3, no apparent distress and healthy appearing General Appearance: cooperative GI normal to inspection, nondistended, normoactive bowel sounds, soft to palpation, non-tender and non-distended Percussion: normal to percussion Rectal Exam: deferred Results Lab / Micro Data Labs: Laboratory Results - last 24 hr 03/06/25 08:57: POC Glucose 172 H Assessment & Plan Assessment/Plan (1) Diarrhea: QUALIFIERS: Diarrhea type: due to malabsorption Qualified Code(s): K90.9 - Intestinal malabsorption, unspecified; R19.7 - Diarrhea, unspecified (2) Anemia, chronic renal failure: QUALIFIERS: Chronic kidney disease stage: stage 3 (moderate) Chronic kidney disease stage 3 subtype: stage 3a (GFR 45-59) Qualified Code(s): N18.31 - Chronic kidney disease, stage 3a; D63.1 - Anemia in chronic kidney disease PLAN: Assessment and Plan Assessment and Plan (1) Anemia: Status: Deleted Qualifiers: Anemia type: iron deficiency Iron deficiency anemia type: other iron deficiency Qualified Code(s): D50.8 - Other iron deficiency anemias Plan: 57-year-old with diabetes complicated by CKD, hypertension, coronary artery disease status post ST segment elevation [place], anemia of chronic disease, iron deficiency anemia, B12 deficiency. She underwent a colonoscopy approximately 5 years ago did not show any abnormalities. However recently her hemoglobin dropped down from 12.[address] down to 10.2 and her stools are fecal occult positive 1.? Anemia of chronic? renal failure, stage III.? Started erythrocyte stimulating agent therapy December 2021 with improvement. She also received iron transfusions and has been on iron and vitamin C as per hematology 2.? Chronic iron deficiency most likely chronic external GI blood loss with iron studies? inappropriately low for a patient with chronic diseases and chronic renal failure in the setting of fecal positive stools. She will undergo colonoscopy. 3.? B12 deficiency 4.? Primary bone marrow disease is less likely as per hematology. (2) Diarrhea: Status: Acute Qualifiers: Diarrhea type: due to malabsorption Qualified Code(s): K90.9 - Intestinal malabsorption, unspecified; R19.7 - Diarrhea, unspecified Plan: The differential diagnosis for her diarrhea postcholecystectomy diarrhea, IBS with diarrhea, dumping syndrome secondary to gastroparesis from diabetes. Work-up and stool studies to make sure there is no infectious etiology. We will also start her on colestipol in the morning and give a short course of antibiotics for bacteria overgrowth secondary to lymphangectasia.
--- NOTE | 2025-03-06 10:00 | COLBX_PTH ---
PATIENT: FLORINDA LOPEZ LOC: EN U#:[id number] AGE/SX: 59/F ROOM: RE03/06/[address]: Dr. Adan Bhatti DO : 1965 BED: DIS: 03/06/2025 SPEC #: [id number] RECD: 03/06/25 12:28 STATUS: EILEEN REChris #: [id number] SHARON: 03/06/25 10:[address]: Adan Bhatti DEPT: SURGICAL PATHOLOGY RECD BY: Holden Christopher ENTERED: 03/06/25 14:38 SP TYPE: COLON BX OTHR DR: Dr. Bret You MD Tissues: A - SPLENIC FLEXURE Procedures: Surgery Specimen Level IV HEADER OPERATION: Colonoscopy with polypectomy hot snare PRE-OP DIAGNOSIS: Diarrhea, anemia TISSUE SUBMITTED: A- Splenic flexure polyp MICROSCOPIC DIAGNOSIS A. Colon, splenic flexure, polyp, biopsy: * Tubular adenoma MICROSCOPIC DESCRIPTION Slides are reviewed. GROSS DESCRIPTION A. Received in fixative is one container labeled with the patient's name and designated Splenic flexure polyp. The specimen consists of multiple irregular fragments of light renee soft tissue that in aggregate measure 1.4 x 0.7 x 0.2 cm. The specimen is totally submitted in one cassette. IAN/ 03/06/2025 CPT:32566
--- NOTE | 2025-03-06 10:00 | COLBX_PTH ---
PATIENT: FLORINDA LOPEZ LOC: EN U#:[id number] AGE/SX: 59/F ROOM: RE03/06/[address]: Dr. Adan Bhatti DO : 1965 BED: DIS: 03/06/2025 SPEC #: [id number] RECD: 03/06/25 12:28 STATUS: EILEEN REChris #: [id number] SHARON: 03/06/25 10:[address]: Adan Bhatti DEPT: SURGICAL PATHOLOGY RECD BY: Holden Christopher ENTERED: 03/06/25 14:38 SP TYPE: COLON BX OTHR DR: Dr. Bret You MD Tissues: A - SPLENIC FLEXURE Procedures: Surgery Specimen Level IV HEADER OPERATION: Colonoscopy with polypectomy hot snare PRE-OP DIAGNOSIS: Diarrhea, anemia TISSUE SUBMITTED: A- Splenic flexure polyp MICROSCOPIC DIAGNOSIS A. Colon, splenic flexure, polyp, biopsy: * Tubular adenoma MICROSCOPIC DESCRIPTION Slides are reviewed. GROSS DESCRIPTION A. Received in fixative is one container labeled with the patient's name and designated Splenic flexure polyp. The specimen consists of multiple irregular fragments of light renee soft tissue that in aggregate measure 1.4 x 0.7 x 0.2 cm. The specimen is totally submitted in one cassette. IAN/ 03/06/2025 CPT:95743
--- NOTE | 2025-03-06 11:04 | PCM.POST.ANE ---
Anesthesia: Postop Eval I Current Vital Signs Temperature: 97.2 F Pulse Rate: 74 Blood Pressure: 120/64 Respiratory Rate: 16 Pulse Ox: 99 Oxygen Delivery Method: Room Air Assessment Airway patent: Yes Spontaneous unlabored respirations: Yes Mental status: Awake and Calm nausea: No Vomiting: No Anesthesia Complication: No Fluid Hydration Crystalloid volume administer (ml): 600 Total IV fluid infused: 600 Progress Note Anesthesia document: Postop Eval 1 completed: Yes
--- NOTE | 2025-03-06 11:05 | OP.COLON_ITS ---
Patient Name: Gisel Bhatti Procedure Date: 03/06/2025 10:23 AM Date of : 1965 Age: 59 Procedure: Colonoscopy Indications: Screening for colorectal malignant neoplasm Providers: Adan Bhatti DO Medicines: Monitored Anesthesia Care Patient Profile: This is a 59 year old female. Refer to note in patient chart for documentation of history and physical. Last Colonoscopy: 3 years ago. Complications: No immediate complications. Procedure: Pre-Anesthesia Assessment: - Prior to the procedure, a History and Physical was performed, and patient medications and allergies were reviewed. The patient is competent. The risks and benefits of the procedure and the sedation options and risks were discussed with the patient. All questions were answered and informed consent was obtained. Patient identification and proposed procedure were verified by the physician. Mental Status Examination: alert and oriented. Airway Examination: normal oropharyngeal airway and neck mobility. Respiratory Examination: clear to auscultation. CV Examination: normal. Prophylactic Antibiotics: The patient does not require prophylactic antibiotics. Prior Anticoagulants: The patient has taken no anticoagulant or antiplatelet agents. ASA Grade Assessment: II - A patient with mild systemic disease. After reviewing the risks and benefits, the patient was deemed in satisfactory condition to undergo the procedure. The anesthesia plan was to use monitored anesthesia care (MAC). Immediately prior to administration of medications, the patient was re-assessed for adequacy to receive sedatives. The heart rate, respiratory rate, oxygen saturations, blood pressure, adequacy of pulmonary ventilation, and response to care were monitored throughout the procedure. The physical status of the patient was re-assessed after the procedure. After I obtained informed consent, the scope was passed under direct vision. Throughout the procedure, the patient's blood pressure, pulse, and oxygen saturations were monitored continuously. The Colonoscope was introduced through the anus and advanced to the cecum, identified by appendiceal orifice and ileocecal valve. The colonoscopy was performed without difficulty. The patient tolerated the procedure well. The quality of the bowel preparation was good. The ileocecal valve, appendiceal orifice, and rectum were photographed. Scope In: 10:35:06 AM Scope Withdrawal Time 0 hours 13 minutes 34 seconds Scope Out: 10:53:38 AM Total Procedure Duration Time 0 hours 18 minutes 32 seconds Findings: The perianal and digital rectal examinations were normal. A 9 mm polyp was found in the splenic flexure. The polyp was sessile. Verification of patient identification for the specimen was done by the nurse using the patient's other identification number. A 5 mm polyp was found in the splenic flexure. The polyp was sessile. The polyp was removed with a jumbo cold forceps. Resection and retrieval were complete. Verification of patient identification for the specimen was done. Estimated blood loss was minimal. Impression: - One 9 mm polyp at the splenic flexure. - One 5 mm polyp at the splenic flexure, removed with a jumbo cold forceps. Resected and retrieved. Recommendation: - Repeat colonoscopy in 5 years for surveillance. - Return to GI office in 1 week. - Continue present medications. Procedure Code(s): --- Professional --- 97236, RT, Colonoscopy, flexible; with biopsy, single or multiple CPT copyright 2021 [employer]. All rights reserved. The codes documented in this report are preliminary and upon posting machine operator review may be revised to meet current compliance requirements. Adan Bhatti DO 03/06/2025 11:05:01 AM This report has been signed electronically. Number of Addenda: 0 Note Initiated On: 03/06/2025 10:23 AM
--- NOTE | 2025-03-06 11:05 | OP.COLON_ITS ---
Patient Name: Gisel Bhatti Procedure Date: 03/06/2025 10:23 AM Date of : 1965 Age: 59 Procedure: Colonoscopy Indications: Screening for colorectal malignant neoplasm Providers: Adan Bhatti DO Medicines: Monitored Anesthesia Care Patient Profile: This is a 59 year old female. Refer to note in patient chart for documentation of history and physical. Last Colonoscopy: 3 years ago. Complications: No immediate complications. Procedure: Pre-Anesthesia Assessment: - Prior to the procedure, a History and Physical was performed, and patient medications and allergies were reviewed. The patient is competent. The risks and benefits of the procedure and the sedation options and risks were discussed with the patient. All questions were answered and informed consent was obtained. Patient identification and proposed procedure were verified by the physician. Mental Status Examination: alert and oriented. Airway Examination: normal oropharyngeal airway and neck mobility. Respiratory Examination: clear to auscultation. CV Examination: normal. Prophylactic Antibiotics: The patient does not require prophylactic antibiotics. Prior Anticoagulants: The patient has taken no anticoagulant or antiplatelet agents. ASA Grade Assessment: II - A patient with mild systemic disease. After reviewing the risks and benefits, the patient was deemed in satisfactory condition to undergo the procedure. The anesthesia plan was to use monitored anesthesia care (MAC). Immediately prior to administration of medications, the patient was re-assessed for adequacy to receive sedatives. The heart rate, respiratory rate, oxygen saturations, blood pressure, adequacy of pulmonary ventilation, and response to care were monitored throughout the procedure. The physical status of the patient was re-assessed after the procedure. After I obtained informed consent, the scope was passed under direct vision. Throughout the procedure, the patient's blood pressure, pulse, and oxygen saturations were monitored continuously. The Colonoscope was introduced through the anus and advanced to the cecum, identified by appendiceal orifice and ileocecal valve. The colonoscopy was performed without difficulty. The patient tolerated the procedure well. The quality of the bowel preparation was good. The ileocecal valve, appendiceal orifice, and rectum were photographed. Scope In: 10:35:06 AM Scope Withdrawal Time 0 hours 13 minutes 34 seconds Scope Out: 10:53:38 AM Total Procedure Duration Time 0 hours 18 minutes 32 seconds Findings: The perianal and digital rectal examinations were normal. A 9 mm polyp was found in the splenic flexure. The polyp was sessile. Verification of patient identification for the specimen was done by the nurse using the patient's other identification number. A 5 mm polyp was found in the splenic flexure. The polyp was sessile. The polyp was removed with a jumbo cold forceps. Resection and retrieval were complete. Verification of patient identification for the specimen was done. Estimated blood loss was minimal. Impression: - One 9 mm polyp at the splenic flexure. - One 5 mm polyp at the splenic flexure, removed with a jumbo cold forceps. Resected and retrieved. Recommendation: - Repeat colonoscopy in 5 years for surveillance. - Return to GI office in 1 week. - Continue present medications. Procedure Code(s): --- Professional --- 47315, RT, Colonoscopy, flexible; with biopsy, single or multiple CPT copyright 2021 [employer]. All rights reserved. The codes documented in this report are preliminary and upon carpenter helper review may be revised to meet current compliance requirements. Adan Bhatti DO 03/06/2025 11:05:01 AM This report has been signed electronically. Number of Addenda: 0 Note Initiated On: 03/06/2025 10:23 AM
--- NOTE | 2025-03-06 11:06 | OP.CCLET_ITS ---
03/06/2025 Bret You MD [address] [place] [address] Re : Colonoscopy procedure for Gisel Bhatti Dear Dr. You This procedure was performed on February. My impressions and recommendations are as follows: Impressions : - One 9 mm polyp at the splenic flexure. - One 5 mm polyp at the splenic flexure, removed with a jumbo cold forceps. Resected and retrieved. Recommendations : - Repeat colonoscopy in 5 years for surveillance. - Return to GI office in 1 week. - Continue present medications. My findings are described in the full procedure note, which is enclosed. If I can be of further assistance, please feel free to contact me at . Sincerely, Adan Bhatti, 03/06/2025 11:05:01 AM This report has been signed electronically.
--- NOTE | 2025-03-06 11:06 | OP.CCLET_ITS ---
03/06/2025 Bret You MD [address] [place] [address] Re : Colonoscopy procedure for Gisel Bhatti Dear Dr. You This procedure was performed on February. My impressions and recommendations are as follows: Impressions : - One 9 mm polyp at the splenic flexure. - One 5 mm polyp at the splenic flexure, removed with a jumbo cold forceps. Resected and retrieved. Recommendations : - Repeat colonoscopy in 5 years for surveillance. - Return to GI office in 1 week. - Continue present medications. My findings are described in the full procedure note, which is enclosed. If I can be of further assistance, please feel free to contact me at . Sincerely, Adan Bhatti, 03/06/2025 11:05:01 AM This report has been signed electronically.
--- NOTE | 2025-03-06 14:35 | PCM.POSTANE2 ---
Anesthesia Postop Eval I Sum Postop Eval Completion status Anesthesia document: Postop Eval 1 completed: Yes Anesthesia Postop Eval I Summary Anesthesia Postop Eval I Summary: Anesthesia Postop Eval I: Assessment Summary Airway patent Yes 03/06/25 11:05 [email or web address] Spontaneous unlabored Yes 03/06/25 11:05 [email or web address] respirations Mental status Awake,Calm 03/06/25 11:05 [email or web address] nausea No 03/06/25 11:05 [email or web address] Vomiting No 03/06/25 11:05 [email or web address] Anesthesia Postop Eval I: Fluid Summary Crystalloid volume administer 600 03/06/25 11:05 [email or web address] (ml) Colloids volume administered ( ml) Blood Product volume administered (ml) Total IV fluid infused 600 03/06/25 11:05 [email or web address] Anesthesia Postop Eval I: Summary Notes Anesthesia Complication No 03/06/25 11:05 [email or web address] Anesthesia Complication Comment: Post-operative progress note Anesthesia: Postop Eval II Evaluation Mental status: Awake and Calm Pain Level: 0 nausea: No Vomiting: No Complications Anesthesia Complication: No
== END 2025-03-06 11:32 | disposition home or self-care (01) ==
LOC: EN 08:22 → AC 08:23
PROVIDERS: PCP Family Medicine Geriatric Medicine; Referring Provider Family Medicine Geriatric Medicine; Visit Provider Internal Medicine Gastroenterology
PROC: 0DJD8ZZ Inspection of Lower Intestinal Tract, Via Natural or Artificial Opening Endoscopic (ICD-10-PCS; CPT 45378; principal; 2025-03-06 09:55)
DX: D12.3 Benign neoplasm of transverse colon (principal); J43.9 Emphysema, unspecified; E11.22 Type 2 diabetes mellitus with diabetic chronic kidney disease; N18.31 Chronic kidney disease, stage 3a; K21.9 Gastro-esophageal reflux disease without esophagitis; I25.10 Atherosclerotic heart disease of native coronary artery without angina pectoris; Z87.891 Personal history of nicotine dependence; E78.00 Pure hypercholesterolemia, unspecified; Z79.84 Long term (current) use of oral hypoglycemic drugs; D63.1 Anemia in chronic kidney disease; I12.9 Hypertensive chronic kidney disease with stage 1 through stage 4 chronic kidney disease, or unspecified chronic kidney disease; E66.9 Obesity, unspecified; Z79.899 Other long term (current) drug therapy; Z79.890 Hormone replacement therapy; E03.9 Hypothyroidism, unspecified; K90.9 Intestinal malabsorption, unspecified; D50.8 Other iron deficiency anemias
CPT/HCPCS: 45380; 82962; 88305; J2405

== ENCOUNTER → 2025-03-24 | Outpatient (CLI) | payer MEDICAID, SELFPAY ==
[2025-03-24 09:27] LABS: Hematocrit 35.3 % (37-47); Hemoglobin 11.7 g/dL (12.0-15.0); Immature Granulocytes Count 0.030 X10^3/uL (0.0-0.0); Mean Corp Hgb Conc 33.1 g/dL (32-36); Mean Corpuscular Volume 98.3 fL (81-99); Mean Platelet Vol. 8.6 fl (6.2-12.0); NRBC Flagged by Analyzer 0 % (0-5); Platelet Count 344 K/mm3 (150-450); RBC Distribution Width CV 13.2 % (11.6-14.6); RBC Distribution Width SD 47.8 fl (35.1-43.9); Red Blood Count 3.59 M/mm3 (4.2-5.4); White Blood Count 5.4 K/mm3 (4.4-11.0)
[2025-03-24 10:09] LABS: AST(SGOT) 20 U/L (<=31); Alanine Aminotransfer ALT/SGPT 26 U/L (<=34); Albumin, Serum 4.2 g/dL (3.5-5.0); Alkaline Phosphatase 107 U/L (35-104); Anion Gap 13 (5-15); BUN 23 mg/dL (4-19); BUN/Creat Ratio 21.4 RATIO (10-20); Calcium,Total 9.6 mg/dL (7.6-11.0); Carbon Dioxide 21.6 mmol/L (21.0-32.0); Chloride 103 mmol/L (98-108); Cholesterol 160 mg/dL (<=200); Globulin 2.3 g/dL (2.2-4.2); Glucose 160 mg/dL (70-99); Low Density Lipoprotein Calc. 76 mg/dL; Potassium 5.0 mmol/L (3.3-5.1); Triglycerides 137 mg/dL; Very Low Density Lipoprotein 27 mg/dL (5-40); cholesterol:hdl ratio screen 2.84
[2025-03-24 17:09] LABS: Xtra Tube Kwok EXTRA TUBE
== END | disposition home or self-care (01) ==
LOC: POLAB3 09:06
PROVIDERS: PCP Family Medicine Geriatric Medicine; Visit Provider Family Medicine Geriatric Medicine
DX: E03.9 Hypothyroidism, unspecified (principal); E11.65 Type 2 diabetes mellitus with hyperglycemia; E78.5 Hyperlipidemia, unspecified; I10 Essential (primary) hypertension
CPT/HCPCS: 36415; 80053; 80061; 83036; 84443; 85025

== ENCOUNTER → 2025-06-23 | Outpatient (CLI) | payer MEDICAID, SELFPAY ==
[2025-06-23 09:55] LABS: Hematocrit 32.6 % (37-47); Hemoglobin 10.6 g/dL (12.0-15.0); Immature Granulocytes Count 0.040 X10^3/uL (0.0-0.0); Mean Corp Hgb Conc 32.5 g/dL (32-36); Mean Corpuscular Volume 98.2 fL (81-99); Mean Platelet Vol. 8.7 fl (6.2-12.0); NRBC Flagged by Analyzer 0 % (0-5); Platelet Count 363 K/mm3 (150-450); RBC Distribution Width CV 15.1 % (11.6-14.6); RBC Distribution Width SD 52.0 fl (35.1-43.9); Red Blood Count 3.32 M/mm3 (4.2-5.4); White Blood Count 6.4 K/mm3 (4.4-11.0)
[2025-06-23 10:23] LABS: Creatinine, Urine (random) 27.90 mg/dL (28.00-217.00); Microalbumin,Random Urine < 12.0 mg/L (<20 mg/L)
[2025-06-23 10:43] LABS: Cholesterol 154 mg/dL (<=200); Low Density Lipoprotein Calc. 68 mg/dL; Triglycerides 144 mg/dL; Very Low Density Lipoprotein 29 mg/dL (5-40); cholesterol:hdl ratio screen 2.52
[2025-06-23 10:47] LABS: AST(SGOT) 20 U/L (<=31); Alanine Aminotransfer ALT/SGPT 27 U/L (<=34); Albumin, Serum 3.9 g/dL (3.4-4.8); Alkaline Phosphatase 74 U/L (35-104); Anion Gap 10 (5-15); BUN 25 mg/dL (4-19); BUN/Creat Ratio 17.0 RATIO (10-20); Calcium,Total 9.3 mg/dL (7.6-11.0); Carbon Dioxide 26.3 mmol/L (21.0-32.0); Chloride 101 mmol/L (98-108); Globulin 2.2 g/dL (2.2-4.2); Glucose 285 mg/dL (70-99); Potassium 5.2 mmol/L (3.3-5.1)
[2025-06-23 11:11] LABS: Vitamin D,25 Hydroxy 142.0 ng/mL (30-100)
[2025-06-23 12:04] LABS: Ferritin 158 ng/mL (22-378); Iron 43 ug/dL (50-170); Iron Binding Capacity,Total 273 ug/dL (250-450); Iron Binding Capacity,Unsat 230 ug/dL (228-428)
== END | disposition home or self-care (01) ==
LOC: POLAB3 08:53
PROVIDERS: Nurse Practitioner Family; PCP Family Medicine Geriatric Medicine; Visit Provider Family Medicine Geriatric Medicine
DX: E11.65 Type 2 diabetes mellitus with hyperglycemia (principal); E78.5 Hyperlipidemia, unspecified; E55.9 Vitamin D deficiency, unspecified; I10 Essential (primary) hypertension
CPT/HCPCS: 36415; 80053; 80061; 82043; 82306; 82570; 82728; 83036; 83540; 83550; 84443; 85025

== ENCOUNTER → 2025-07-07 | Outpatient (CLI) | payer MEDICAID, SELFPAY ==
[2025-07-07 09:56] LABS: Anion Gap 11 (5-15); BUN 27 mg/dL (4-19); BUN/Creat Ratio 19.9 RATIO (10-20); Calcium,Total 10.1 mg/dL (7.6-11.0); Carbon Dioxide 20.9 mmol/L (21.0-32.0); Chloride 104 mmol/L (98-108); Glucose 215 mg/dL (70-99); Potassium 5.2 mmol/L (3.3-5.1)
== END | disposition home or self-care (01) ==
LOC: POLAB3 09:09
PROVIDERS: PCP Family Medicine Geriatric Medicine; Visit Provider Family Medicine Geriatric Medicine
DX: E11.65 Type 2 diabetes mellitus with hyperglycemia (principal); E87.5 Hyperkalemia
CPT/HCPCS: 36415; 80048; 83036

== ENCOUNTER → 2025-07-09 | Outpatient (CLI) | payer MEDICAID, SELFPAY ==
[2025-07-09 09:25] LABS: Anion Gap 13 (5-15); BUN 32 mg/dL (4-19); BUN/Creat Ratio 23.3 RATIO (10-20); Calcium,Total 10.4 mg/dL (7.6-11.0); Carbon Dioxide 23.6 mmol/L (21.0-32.0); Chloride 102 mmol/L (98-108); Glucose 177 mg/dL (70-99); Potassium 4.9 mmol/L (3.3-5.1)
== END | disposition home or self-care (01) ==
LOC: POLAB3 08:34
PROVIDERS: PCP Family Medicine Geriatric Medicine; Visit Provider Family Medicine Geriatric Medicine
DX: I10 Essential (primary) hypertension (principal)
CPT/HCPCS: 36415; 80048